=== PATIENT | female | born 1975 | race Hispanic/Latino ===

== ENCOUNTER 2019-01-26 06:15 | Emergency (ER) | payer SELFPAY ==
[2019-01-26] MEDS ORDERED: ONDANSETRON 4 MG/2 ML VIAL ONE (06:52)
[2019-01-26 07:01] LABS: Absolute Lymphocytes (CBC) 2.3 K/uL (0.7-4.9); Basophils % 0.3 % (0-1.3); Hematocrit 36.7 % (36.0-45.0); Lymphocytes % 22.2 % (15.3-44.8); MPV 8.9 fL (7.6-11.3); RBC Red Blood Cell Count 4.11 M/uL (3.86-4.86)
[2019-01-26] MEDS ORDERED: NA CHLORIDE 0.9% 1,000 ML ONE (07:11)
[2019-01-26 07:17] LABS: ALT/SGPT 26 U/L (12-78); AST/SGOT 20 U/L (15-37); Albumin 3.2 g/dL (3.4-5.0); Alkaline Phosphatase 126 U/L (45-117); BUN Blood Urea Nitrogen 13 mg/dL (7-18); Bicarbonate 29 mmol/L (21-32); Bilirubin Direct < 0.1 mg/dL (0-0.2); Bilirubin Total 0.4 mg/dL (0.2-1.0); Glucose Level 109 mg/dL (74-106); Lipase 92 U/L (73-393); Potassium 3.9 mmol/L (3.5-5.1); Protein, Total 7.3 g/dL (6.4-8.2); Sodium Level 141 mmol/L (136-145)
[2019-01-26 09:01] LABS: Urine Blood NEGATIVE (NEG); Urine Glucose NEGATIVE (NEG); Urine Protein NEGATIVE (NEG); Urine Specific Gravity 1.025 (1.005-1.030)
[2019-01-26 09:21] LABS: Urine Bacteria <20 /HPF (<20); Urine Culture Reflex Order NOT NEEDED; Urine RBC <5 /HPF (NONE SEEN)
[2019-01-26 09:22] LABS: Urine Mucus 2+ /HPF (NONE SEEN)
--- NOTE | 2019-01-26 09:33 | ER ---
Nurse's Notes [facility] Name: Esther Zimmer Age: 44 yrs Sex: Female : 1975 Arrival Date: 01/26/2019 Time: 06:17 Bed 6 Private MD: Diagnosis: Cholelithiasis;Colic Presentation: 01/26 06:33 Presenting complaint: Patient states: that she is having right upper quad pain along fc with nausea and vomiting that started at 0100. She has hx of gallstones. Transition of care: patient was not received from another setting of care. Onset of symptoms was January 26, 2019 at 01:00. Risk Assessment: Do you want to hurt yourself or someone else? Patient reports no desire to harm self or others. Initial Sepsis Screen:. Care prior to arrival: None. 06:33 Method Of Arrival: Ambulatory 06:33 Acuity: CARMITA 3 06:38 Initial Sepsis Screen: Does the patient meet any 2 criteria? No. Patient's initial fc sepsis screen is negative. Does the patient have a suspected source of infection? No. Patient's initial sepsis screen is negative. 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 - Social history:: Smoking status: Patient/guardian denies using tobacco, Patient/guardian denies using alcohol, street drugs. - Ebola Screening: : Patient negative for fever greater than or equal to 101.5 degrees Fahrenheit, and additional compatible Ebola Virus Disease symptoms Patient denies exposure to infectious person Patient denies travel to an Ebola-affected area in the 21 days before illness onset. Screenin:36 Abuse screen: Denies threats or abuse. Nutritional screening: No deficits noted. fc Tuberculosis screening: No symptoms or risk factors identified. Fall Risk None identified. Assessment: 06:36 General: Appears in no apparent distress. obese, well groomed, Behavior is calm, ak1 cooperative. Pain: Complains of pain in epigastric area. Neuro: No deficits noted. Cardiovascular: No deficits noted. Respiratory: Airway is patent Respiratory effort is unlabored. GI: Abdomen is round non-distended, obese, Bowel sounds present X 4 quads. Abd is soft and non tender Reports nausea, vomiting. : No signs and/or symptoms were reported regarding the genitourinary system. EENT: No signs and/or symptoms were reported regarding the EENT system. Derm: No signs and/or symptoms reported regarding the dermatologic system. Musculoskeletal: No signs and/or symptoms reported regarding the musculoskeletal system. 07:00 Reassessment: RECD REPORT FROM MATTHEW PICKENS. 44YO HF P/W ABDOMINAL PAIN, PREVIOUSLY DX WITH bp GALLSTONES. 07:16 Reassessment: Patient and/or family updated on plan of care and expected duration. Pain ae4 level reassessed. Reassessment: Patient c/o pain but states she is feeling better and reports nausea has decreased. General: Behavior is calm, cooperative. Pain: Complains of pain in epigastric area and right upper quadrant. 07:30 Reassessment: Encouraged patient to provide urine sample, patient states she urinated ae4 before arriving to ER and cannot provide a sample at this time. Will continue to monitor. 08:28 Reassessment: Patient ambulated to bathroom to provide urine sample at this time. ae4 Patient has steady gait. Will continue to monitor. 09:40 Reassessment: Patient appears in no apparent distress at this time. Patient and/or ae4 family updated on plan of care and expected duration. Pain level reassessed. Patient states feeling better. Vital Signs: 06:35 BP 137 / 91; Pulse 77; Resp 18; Temp 97.1(O); Pulse Ox 98% on R/A; Weight 158.76 kg fc (R); Height 5 ft. 6 in. (167.64 cm) (R); Pain 10/10; 07:00 BP 136 / 104; Pulse 58; Resp 17; Pulse Ox 100% ; bp 08:41 BP 119 / 82; Pulse 70; Resp 18; Pulse Ox 100% on R/A; ae4 09:40 BP 129 / 85; Pulse 70; Resp 18; Pulse Ox 99% on R/A; ae4 06:35 Body Mass Index 56.49 (158.76 kg, 167.64 cm) ED Course: 06:17 Patient arrived in ED. ds1 06:20 [facility] Archer [facility]C [facility]. snw 06:20 Richard Alcaraz MD is Attending Physician. snw 06:34 Triage completed. fc 06:35 Matthew Bergman, RN is Primary Nurse. ak1 06:35 Arm band placed on Patient placed in an exam room, on a stretcher. fc 06:36 Patient has correct armband on for positive identification. Placed in gown. Bed in low fc position. Call light in reach. Pulse ox on. NIBP on. 06:36 No provider procedures requiring assistance completed. fc 06:45 Inserted saline lock: 20 gauge in right antecubital area, using aseptic technique. cc3 Blood collected. 08:15 Ultrasound completed. Patient tolerated well. sg3 08:28 Primary Nurse role handed off by Matthew Bergman, RN ae4 08:28 Omer West RN is Primary Nurse. ae4 08:45 Urine collected: clean catch specimen, clear, matthew colored. jb1 09:31 Michael Mccarty MD is Referral Physician. snw 09:42 IV discontinued, intact, bleeding controlled, Pressure dressing applied, Mild swelling ae4 and light bruising to insertion site. Administered Medications: 06:50 Drug: Zofran 4 mg Route: IVP; Site: right antecubital; cc3 07:16 Follow up: Response: Nausea is decreased ae4 07:16 Drug: NS 0.9% 1000 ml Route: IV; Rate: 125 ml/hr; Site: right wrist; ae4 09:42 Follow up: Response: No adverse reaction; IV Intake: 300ml ae4 09:43 Follow up: IV Status: Order to discontinue infusion; Patient discharged. ae4 Intake: 09:42 IV: 300ml; Total: 300ml. ae4 Outcome: 09:32 Discharge ordered by . snw 09:41 Discharged to home ambulatory, with family. ae4 09:41 Condition: stable 09:41 Discharge instructions given to patient, family, Instructed on discharge instructions, follow up and referral plans. medication usage, Demonstrated understanding of instructions, Prescriptions given X 2. 09:43 Patient left the ED. ae4 Signatures: Dispatcher [employer] EDMS Homero Vargas jb1 Jennifer Archer FNP-C FNP-Csnw Carla Hamilton, RN RN fc StricklandSarah vickers ds1 Matthew Bergman RN RN ak1 Richi Sarmiento RN RN bp Aparna Marie sg3 Genny Kahn cc3 Omer West RN RN ae4 Corrections: (The following items were deleted from the chart) 06:36 06:35 BP 137 / 91; Pulse 77bpm; Resp 18bpm; Pulse Ox 98% RA; Temp 97.1F Oral; ak1 fc 08:28 08:28 In radiology for Abdomen Limited+US.RAD.BRZ. EDMS sg3
--- NOTE | 2019-01-26 09:33 | EDPHYS ---
Physician Documentation [facility] Name: Esther Zimmer Age: 44 yrs Sex: Female : 1975 Arrival Date: 01/26/2019 Time: 06:17 Bed 6 Private MD: ED Physician Richard Alcaraz HPI: 01/26 07:29 This 44 yrs old Female presents to ER via Ambulatory with complaints of snw Abdominal Pain. 07:29 The patient presents with abdominal pain in the right upper quadrant. Onset: The snw symptoms/episode began/occurred gradually, at an unknown time, and became worse this morning, and became persistent yesterday. 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 - Social history:: Smoking status: Patient/guardian denies using tobacco, Patient/guardian denies using alcohol, street drugs. - Ebola Screening: : Patient negative for fever greater than or equal to 101.5 degrees Fahrenheit, and additional compatible Ebola Virus Disease symptoms Patient denies exposure to infectious person Patient denies travel to an Ebola-affected area in the 21 days before illness onset. ROS: 07:28 Constitutional: Negative for fever, chills, and weight loss, Eyes: Negative for injury, snw pain, redness, and discharge, ENT: Negative for injury, pain, and discharge, Neck: Negative for injury, pain, and swelling, Cardiovascular: Negative for chest pain, palpitations, and edema, Respiratory: Negative for shortness of breath, cough, wheezing, and pleuritic chest pain, Back: Negative for injury and pain, : Negative for injury, bleeding, discharge, and swelling, MS/Extremity: Negative for injury and deformity, Skin: Negative for injury, rash, and discoloration, Neuro: Negative for headache, weakness, numbness, tingling, and seizure. 07:28 Abdomen/GI: Positive for abdominal pain, nausea, vomiting. Exam: 07:21 Constitutional: This is a well developed, obese patient who is awake, alert, and in no snw acute distress. Head/Face: Normocephalic, atraumatic. Eyes: Pupils equal round and reactive to light, extra-ocular motions intact. Lids and lashes normal. Conjunctiva and sclera are non-icteric and not injected. Cornea within normal limits. Periorbital areas with no swelling, redness, or edema. ENT: Nares patent. No nasal discharge, no septal abnormalities noted. Tympanic membranes are normal and external auditory canals are clear. Oropharynx with no redness, swelling, or masses, exudates, or evidence of obstruction, uvula midline. Mucous membranes moist. Neck: Trachea midline, no thyromegaly or masses palpated, and no cervical lymphadenopathy. Supple, full range of motion without nuchal rigidity, or vertebral point tenderness. No Meningismus. Chest/axilla: Normal chest wall appearance and motion. Nontender with no deformity. No lesions are appreciated. Cardiovascular: Regular rate and rhythm with a normal S1 and S2. No gallops, murmurs, or rubs. Normal PMI, no JVD. No pulse deficits. Respiratory: Lungs have equal breath sounds bilaterally, clear to auscultation and percussion. No rales, rhonchi or wheezes noted. No increased work of breathing, no retractions or nasal flaring. Back: No spinal tenderness. No costovertebral tenderness. Full range of motion. Skin: Warm, dry with normal turgor. Pale color with no rashes, no lesions, and no evidence of cellulitis. MS/ Extremity: Pulses equal, no cyanosis. Neurovascular intact. Full, normal range of motion. Neuro: Awake and alert, GCS 15, oriented to person, place, time, and situation. Cranial nerves II-XII grossly intact. Motor strength 5/5 in all extremities. Sensory grossly intact. Cerebellar exam normal. Normal gait. Psych: Awake, alert, with orientation to person, place and time. Behavior, mood, and affect are within normal limits. 07:21 Abdomen/GI: Inspection: obese Bowel sounds: normal, Palpation: moderate abdominal tenderness, in the right upper quadrant. Vital Signs: 06:35 BP 137 / 91; Pulse 77; Resp 18; Temp 97.1(O); Pulse Ox 98% on R/A; Weight 158.76 kg fc (R); Height 5 ft. 6 in. (167.64 cm) (R); Pain 10/10; 07:00 BP 136 / 104; Pulse 58; Resp 17; Pulse Ox 100% ; bp 08:41 BP 119 / 82; Pulse 70; Resp 18; Pulse Ox 100% on R/A; ae4 09:40 BP 129 / 85; Pulse 70; Resp 18; Pulse Ox 99% on R/A; ae4 06:35 Body Mass Index 56.49 (158.76 kg, 167.64 cm) fc MDM: 06:42 Patient medically screened. snw 09:33 Data reviewed: vital signs, nurses notes. Data interpreted: Pulse oximetry: on room air snw is 100 %. Interpretation: normal. Counseling: I had a detailed discussion with the patient and/or guardian regarding: the historical points, exam findings, and any diagnostic results supporting the discharge/admit diagnosis, the presence of at least one elevated blood pressure reading (>120/80) during this emergency department visit, lab results, radiology results, the need for outpatient follow up, to return to the emergency department if symptoms worsen or persist or if there are any questions or concerns that arise at home. Special discussion: Based on the patient's Hx, exam, and Dx evaluation, there is no indication for emergent surgery or inpatient Tx. It is understood by the patient/guardian that if the Sx's persist or worsen they need to return immediately for re-evaluation. Based on the history and exam findings, there is no indication for further emergent testing or inpatient evaluation. I discussed with the patient/guardian the need to see the general surgeon for further evaluation of the symptoms. I discussed with the patient/guardian the need to see the primary care provider for further evaluation of the symptoms. 01/26 06:41 Order name: Basic Metabolic Panel; Complete Time: 07: snw 01/26 06:41 Order name: CBC with Diff; Complete Time: 07: snw 01/26 06:41 Order name: Creatinine for Radiology; Complete Time: 07: snw 01/26 06:41 Order name: Hepatic Function; Complete Time: 07:21 snw 01/26 06:41 Order name: Lipase; Complete Time: 07: snw 01/26 06:41 Order name: Urine Microscopic Only; Complete Time: 09: snw 01/26 06:41 Order name: IV Saline Lock; Complete Time: 06:47 snw 01/26 06:41 Order name: Labs collected and sent; Complete Time: 06:47 snw 01/26 06:41 Order name: US Abdomen Limited snw 01/26 06:41 Order name: Urine Test (obtain specimen); Complete Time: 08:44 snw 01/26 08:47 Order name: Urine Dipstick--Ancillary (enter results); Complete Time: 09:08 eb 01/26 08:47 Order name: Urine --Ancillary (enter results); Complete Time: 09:08 eb 01/26 06:41 Order name: Urine Dipstick-Ancillary (obtain specimen); Complete Time: 08:44 snw Administered Medications: 06:50 Drug: Zofran 4 mg Route: IVP; Site: right antecubital; cc3 07:16 Follow up: Response: Nausea is decreased ae4 07:16 Drug: NS 0.9% 1000 ml Route: IV; Rate: 125 ml/hr; Site: right wrist; ae4 09:42 Follow up: Response: No adverse reaction; IV Intake: 300ml ae4 09:43 Follow up: IV Status: Order to discontinue infusion; Patient discharged. ae4 Disposition: 01/26/19 09:32 Discharged to Home. Impression: Cholelithiasis, Colic. - Condition is Stable. - Discharge Instructions: Biliary Colic, Adult, Fat and Cholesterol Restricted Diet, Cholelithiasis, Rehydration, Adult. - Prescriptions for Bentyl 20 mg Oral Tablet - take 1 tablet by ORAL route every 6 hours As needed; 20 tablet. promethazine 25 mg Oral Tablet - take 1 tablet by ORAL route every 6 hours As needed; 20 tablet. - Work release form, Medication Reconciliation Form, Thank You Letter, Antibiotic Education, Prescription Opioid Use form. - Follow up: Private Physician; When: 1 - 2 days; Reason: Recheck today's complaints, Continuance of care, Re-evaluation by your physician. Follow up: Michael Mccarty MD; When: 1 week; Reason: Recheck today's complaints, Continuance of care. Addendum: 01/28/2019 09:17 Co-signature as Attending Physician, Richard Alcaraz MD I agree with the assessment and c huber plan of care. Signatures: Dispatcher [employer] EDMS Rcihard Alcaraz MD MD cha Therrien, Shelly, CASINO CASHIER MANAGER-C CASINO CASHIER MANAGER-Csnw Carla Hamilton RN RN Genny Kahn cc3 Omer West RN RN ae4 Corrections: (The following items were deleted from the chart) 01/26 07:29 07:21 Constitutional: This is a well developed, well nourished patient who is awake, snw alert, and in no acute distress. Head/Face: Normocephalic, atraumatic. Eyes: Pupils equal round and reactive to light, extra-ocular motions intact. Lids and lashes normal. Conjunctiva and sclera are non-icteric and not injected. Cornea within normal limits. Periorbital areas with no swelling, redness, or edema. ENT: Nares patent. No nasal discharge, no septal abnormalities noted. Tympanic membranes are normal and external auditory canals are clear. Oropharynx with no redness, swelling, or masses, exudates, or evidence of obstruction, uvula midline. Mucous membranes moist. Neck: Trachea midline, no thyromegaly or masses palpated, and no cervical lymphadenopathy. Supple, full range of motion without nuchal rigidity, or vertebral point tenderness. No Meningismus. Chest/axilla: Normal chest wall appearance and motion. Nontender with no deformity. No lesions are appreciated. Cardiovascular: Regular rate and rhythm with a normal S1 and S2. No gallops, murmurs, or rubs. Normal PMI, no JVD. No pulse deficits. Respiratory: Lungs have equal breath sounds bilaterally, clear to auscultation and percussion. No rales, rhonchi or wheezes noted. No increased work of breathing, no retractions or nasal flaring. Back: No spinal tenderness. No costovertebral tenderness. Full range of motion. Skin: Warm, dry with normal turgor. Normal color with no rashes, no lesions, and no evidence of cellulitis. MS/ Extremity: Pulses equal, no cyanosis. Neurovascular intact. Full, normal range of motion. Neuro: Awake and alert, GCS 15, oriented to person, place, time, and situation. Cranial nerves II-XII grossly intact. Motor strength 5/5 in all extremities. Sensory grossly intact. Cerebellar exam normal. Normal gait. Psych: Awake, alert, with orientation to person, place and time. Behavior, mood, and affect are within normal limits. snw 09:43 09:32 01/26/2019 09:32 Discharged to Home. Impression: Cholelithiasis; Colic. Condition ae4 is Stable. Forms are Medication Reconciliation Form, Thank You Letter, Antibiotic Education, Prescription Opioid Use. Follow up: Private Physician; When: 1 - 2 days; Reason: Recheck today's complaints, Continuance of care, Re-evaluation by your physician. Follow up: Michael Mccarty; When: 1 week; Reason: Recheck today's complaints, Continuance of care. snw
[2019-01-26 10:11] VITALS: TEMP 97.1
[2019-01-26 10:15] VITALS: BP 129/85; O2SAT 99
--- NOTE | 2019-01-26 10:54 | RAD REPORT ---
EXAM DESCRIPTION: US - Abdomen Exam Limited - 01/26/2019 8:28 am CLINICAL HISTORY: ABD PAIN COMPARISON: Abdomen Exam Limited dated 12/30/2018 FINDINGS: The gallbladder demonstrates multiple shadowing gallstones. No pericholecystic fluid or ga llbladder wall thickening. The common bile duct is normal measuring 4 mm. The liver demonstrates no findings of intrahepatic biliary dilatation. IMPRESSION: Cholelithiasis.
== END 2019-01-26 09:43 | disposition home or self-care (01) ==
LOC: ER 06:15
DX: K80.20 Calculus of gallbladder without cholecystitis without obstruction (principal); R10.84 Generalized abdominal pain; E03.9 Hypothyroidism, unspecified
CPT/HCPCS: 36415; 76705; 80048; 80076; 81003; 81015; 81025; 83690; 85025; 96361; 96374; 99284; J2405; J7030

== ENCOUNTER 2019-02-13 09:36 | Day surgery (SDC) | payer BC ==
--- NOTE | 2019-02-11 15:05 | RAD REPORT ---
EXAM DESCRIPTION: RAD - Chest Pa And Lat (2 Views) - 02/11/2019 2:26 pm CLINICAL HISTORY: preop, pending cholecystectomy COMPARISON: None. TECHNIQUE: PA and lateral views of the chest were obtained. FINDINGS: The lungs are clear. Heart size is normal and central vasculature is within normal limit s. No pleural effusion or pneumothorax seen. No acute bony finding noted. No aortic abnormality. IMPRESSION: No acute cardiopulmonary process.
--- NOTE | 2019-02-11 17:16 | EKG ---
Test Date: 2019-02-11 Test Time: 14:01:06 District Plant Superintendent: CONNIE MEASUREMENT RESULTS: Intervals: Rate: 63 UT: 164 QRSD: 90 QT: 404 QTc: 413 [place]: P: 260 UT: 164 QRS: 56 T: 52 INTERPRETIVE STATEMENTS: Unusual P axis, possible ectopic atrial rhythm Cannot rule out Anterior infarct, age undetermined Abnormal ECG No previous ECG available for comparison Electronically Signed On 02-11-19 17:15:29 CDT by Matthew Daniels
[2019-02-13] MEDS ORDERED: Ringers Lactate 1,000 ML IV ONE ×2 (09:38→11:39)
[2019-02-13] MEDS ORDERED: LIDOCAINE 2% MPF 5 ML VIAL ONE (09:43)
[2019-02-13] MEDS ORDERED: MIDAZOLAM HCL 2 MG/2 ML INJ ONE (09:43)
[2019-02-13] MEDS ORDERED: FENTANYL CITR 250 MCG/5 ML ONE (09:43)
[2019-02-13] MEDS ORDERED: dexAMETHasone 10 MG/ML VIAL ONE (09:43)
[2019-02-13] MEDS ORDERED: PROPOFOL 200 MG/20 ML VIAL IV ONE (09:43)
[2019-02-13] MEDS ORDERED: ROCURONIUM 50 MG/5 ML VIAL IV ONE (09:43)
[2019-02-13] MEDS ORDERED: GLYCOPYRROLATE 0.2 MG/ML SYR ONE ×2 (09:43→11:43)
[2019-02-13] MEDS ORDERED: CEFOXITIN/SWI 1gm 1 GM/10 ML SYR ONE (10:15)
[2019-02-13 10:25] LABS: ALT/SGPT 25 U/L (12-78); AST/SGOT 17 U/L (15-37); Albumin 3.2 g/dL (3.4-5.0); Alkaline Phosphatase 123 U/L (45-117); Amylase Level 50 U/L (25-115); Bilirubin Direct < 0.1 mg/dL (0-0.2); Bilirubin Total 0.4 mg/dL (0.2-1.0); Lipase 93 U/L (73-393)
[2019-02-13] MEDS ORDERED: KETOROLAC 30 MG/ML INJ ONE (11:43)
[2019-02-13] MEDS ORDERED: NEOSTIGMINE 1 MG/ML -10 ML VIAL ONE (11:46)
--- NOTE | 2019-02-13 12:09 | P.BOP ---
Preoperative diagnosis: symptomatic cholelithiasis. morbid obesity Postoperative diagnosis: same Primary procedure: Laparoscopic cholecystectomy Bellhop: SYMONE MULLINS (fatback trimmer) Estimated blood loss: <20cc Specimen: gb Findings: as above Anesthesia: General Complications: None Transferred to: Recovery Room Condition: Good
[2019-02-13] MEDS: MORPHINE 4 MG/ML SYR ONE ×2 (12:41→12:46)
[2019-02-13] MEDS ORDERED: CODEINE 30MG/APAP 300MG TAB ONE (14:03)
[2019-02-13 14:23] VITALS: BP 111/60; TEMP 98.5; O2SAT 96
--- NOTE | 2019-02-13 21:56 | OP ---
Date of Procedure: 02/13/2019 Surgeon: Shaun Estrada MD Web Worker: DEANN Resendiz. Preoperative Diagnoses: Symptomatic cholelithiasis, acute cholecystitis, morbid obesity. Postoperative Diagnoses: Symptomatic cholelithiasis, acute cholecystitis, morbid obesity plus intraa bdominal adhesions. Procedures: Laparoscopic cholecystectomy. Estimated Blood Loss: Less than 20 mL. Specimens: Gallbladder. Findings: Patient had as above in the gallbladder also has multiple adhesions from previous surgerie s. Adhesion was removed the 1 near the gallbladder with endo-zulay. Indications: This is the case of a 44-year-old patient with above diagnosis. Fully explained the be nefits, alternatives, and risks of laparoscopic, possible open cholecystectomy, which include but are not limited to infection, bleeding, damage to adjacent structures, anesthesia complication, choledoc holithiasis, bile leak, pancreatitis, VA, and even . She also understands this may not relieve any symptoms. She might need more than one surgical intervention. She was also advised after surger y to continue ambulation, at least every 2 hours. She signed a consent. Description Of Procedure: Patient was brought to the operating room, placed in supine position. Ane sthesia was done without complication. Abdominal area was prepped and draped in a sterile fashion. Marcaine 0.5% was injected for local anesthetic. The first incision was done in the supraumbilical r egion. Patient has multiple incisions around the belly button and in the lower ventral region also p atient has across incision like findings of incision. So, we went to the periumbilical region. The pannus was very large and thick so had to go all the way down to fascia until we identified and opene d the fascia under direct visualization. I identified the peritoneal and opened under direct visuali zation. Vicryl #1 was placed inside the fascia. Dorota trocar was carefully introduced, extended 1 then insufflation was obtained. At that moment, I proceeded to place 3 more trocars, 5 mm each one o f them in the right upper quadrant. We put a grasper in the fundus of the gallbladder, some adhesion s of the omentum to the gallbladder and to the liver were carefully removed with Endo Zulay with Bov ie cauterizer. Intestines were protected at all times. Grasper was placed in the fundus of the gall bladder, another grasper in the infundibulum, retracted the gallbladder in the inferolateral fashion exposing the triangle of Calot, obtaining critical view of safety. Cystic duct and cystic artery wer e clearly isolated free circumferentially and a connection between those and the gallbladder were aureliano aixa identified. A small little branch of the cystic artery was also ligated. By using at least 2 c lips proximal, 1 clip distal, ligation in middle, same was done with the artery and the cystic duct. Hepatic arteries and common bile duct were protected at all times. Gallbladder was removed from papi er using Bovie cauterizer and removed from abdominal cavity using EndoCatch through umbilical incisio n. The area was inspected once again. No bile leak. No bleeding. The area of adhesions, no bleedi ng. At that moment I proceeded to remove the trocars under direct vision. Deflated the pneumoperito neum. Closed the fascia with #1 Vicryl. Irrigated with subcutaneous incision, closed with 3-0 chrom ic and skin with uday. Sponge count and instrument counts were correct. Patient tolerated the pr ocedure well. Patient was sent to recovery in stable condition. Disposition: Home. Activity: As tolerated. No heavy lifting. Followup: Follow up in my office in 1 week. Call for appointment at [phone]. Keep area dry for 48 hours, then may shower. Keep dressing intact. Patient was once again encouraged ambulation every 2 hours. ADITYA/KAYLA Voice ID: [id number] Report ID: [id number]
== END 2019-02-13 14:37 | disposition home or self-care (01) ==
LOC: OR 09:36
PROVIDERS: ATTEND Surgery
PROC: 0FT44ZZ Resection of Gallbladder, Percutaneous Endoscopic Approach (ICD-10-PCS; principal; 2019-02-13 11:30)
DX: K80.12 Calculus of gallbladder with acute and chronic cholecystitis without obstruction (principal); K66.0 Peritoneal adhesions (postprocedural) (postinfection); E66.01 Morbid (severe) obesity due to excess calories; Z83.3 Family history of diabetes mellitus; Z80.9 Family history of malignant neoplasm, unspecified
CPT/HCPCS: 93005; 36415; 82150; 80076; 88304; 83690; 71046; 47562; J2704; J2710; J2250; J3010; J1100; J7120 ×2

== ENCOUNTER 2019-05-20 21:33 | Emergency (ER) | payer BC ==
--- OUTSIDE RECORDS SUMMARY | 2019-05-20 21:35 | XMS REPORT ---
:1975 Author [facility] Address [address] [place] [address] Care Team Providers Name Role Phone Unavailable Unavailable Unavailable Problems This patient has no known problems. Allergies, Adverse Reactions, Alerts This patient has no known allergies or adverse reactions. Medications This patient has no known medications.
--- NOTE | 2019-05-20 22:01 | ER ---
Nurse's Notes [facility] Name: Esther Zimmer Age: 44 yrs Sex: Female : 1975 Arrival Date: 05/20/2019 Time: 21:35 Bed 6 Private MD: Diagnosis: Strain of other extensor muscle, fascia and tendon at forearm level Presentation: 05/20 21:49 Presenting complaint: Patient states: pt tripped and fell over her dog last night and bb3 c/o pain 10/10 on LFA. pt states she braced her fall with left arm and "felt something tear". pt unable to grab objects or squeeze fingers closed. Transition of care: patient was not received from another setting of care. Onset of symptoms was May 20, 2019 at 20:30. Risk Assessment: Do you want to hurt yourself or someone else? Patient reports no desire to harm self or others. Initial Sepsis Screen: Does the patient meet any 2 criteria? No. Patient's initial sepsis screen is negative. Does the patient have a suspected source of infection? No. Patient's initial sepsis screen is negative. Care prior to arrival: Medication(s) given: Aleve. 21:49 Method Of Arrival: Ambulatory bb3 21:49 Acuity: CARMITA 4 bb3 Triage Assessment: 21:58 General: Appears in no apparent distress. uncomfortable, Behavior is calm, cooperative, bb3 appropriate for age. Pain: Complains of pain in left arm Pain at worst was 10 out of 10 on a pain scale. Quality of pain is described as burning, Pain began 1 day ago. Alleviated by cold application. 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 - Social history:: Patient/guardian denies using Smoking status: Patient/guardian denies using tobacco. - Ebola Screening: : No symptoms or risks identified at this time. Screenin:02 Abuse screen: Denies threats or abuse. Nutritional screening: No deficits noted. bb3 Tuberculosis screening: No symptoms or risk factors identified. Fall Risk Fall in past 12 months (25 points). Assessment: 22:00 General: Appears in no apparent distress. Behavior is calm, cooperative, appropriate ea for age. Pain: Complains of pain in dorsal aspect of left forearm. Neuro: Level of Consciousness is awake, alert, obeys commands, Oriented to person, place, time, situation. Cardiovascular: Patient's skin is warm and dry. Respiratory: Airway is patent Respiratory effort is even, unlabored, Respiratory pattern is regular, symmetrical. Derm: Skin is pink, warm \\T\\ dry. 22:08 Reassessment: Patient and/or family updated on plan of care and expected duration. Pain ea level reassessed. Patient is alert, oriented x 3, equal unlabored respirations, skin warm/dry/pink. Discharge instruction given to patient, verbalized the understanding of instruction . Pt left ED ambulatory, tolerating well. Vital Signs: 22:00 Pulse 86; bb3 22:00 Pulse 97; Resp 18; Temp 98.1; Pulse Ox 99% ; Weight 154.22 kg; Height 5 ft. 6 in. bb3 (167.64 cm); Pain 10/10; 22:00 BP 128 / 87; bb3 22:00 Body Mass Index 54.88 (154.22 kg, 167.64 cm) bb3 ED Course: 21:35 Patient arrived in ED. cl3 21:37 Remigio Weldon PA is PHCP. jr8 21:37 Dorothea Hernández MD is Attending Physician. jr8 21:55 Triage completed. bb3 22:00 Jay Gilman MD is Referral Physician. jr8 22:02 Patient has correct armband on for positive identification. Bed in low position. bb3 22:03 Arm band placed on right wrist. Patient placed in an exam room, on a stretcher, on bb3 pulse oximetry. 22:07 Teresa Ortiz, NELIA is Primary Nurse. ea 22:09 No provider procedures requiring assistance completed. Patient did not have IV access ea during this emergency room visit. Administered Medications: No medications were administered Outcome: 22:00 Discharge ordered by . jr8 22:09 Discharged to home ambulatory. ea 22:09 Condition: stable 22:09 Discharge instructions given to patient, Instructed on discharge instructions, follow up and referral plans. medication usage, Demonstrated understanding of instructions, follow-up care, medications. 22:10 Patient left the ED. ea Signatures: Remigio Weldon PA PA jr8 Teresa Ortiz RN RN Cleo Petty cl3 Brynn Andrews bb3
--- NOTE | 2019-05-20 22:01 | EDPHYS ---
Physician Documentation [facility] Name: Esther Zimmer Age: 44 yrs Sex: Female : 1975 Arrival Date: 05/20/2019 Time: 21:35 Bed 6 Private MD: ED Physician Dorothea Hernández HPI: 05/20 21:55 This 44 yrs old Female presents to ER via Ambulatory with complaints of Arm jr8 Pain. 21:55 The patient or guardian complains of decreased range of motion, pain, tenderness. The jr8 complaints affect the dorsal aspect of left forearm. Context: The problem was sustained at home, resulted from a fall. Onset: The symptoms/episode began/occurred acutely, yesterday. Treatment prior to arrival includes: applying pressure to the affected area. Modifying factors: The symptoms are alleviated by nothing. the symptoms are aggravated by movement, lifting weight. Associated signs and symptoms: The patient has no apparent associated signs or symptoms. Severity of symptoms: At their worst the symptoms were mild, in the emergency department the symptoms are unchanged. The patient has not experienced similar symptoms in the past. The patient has not recently seen a physician. Patient stated that she braised her self from falling onto a wall with left arm. Stated that she felt pull in dorsal aspect of forearm. Has had pain since then and decreased ROM. Denies actual fall injury to arm . 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 - Social history:: Patient/guardian denies using Smoking status: Patient/guardian denies using tobacco. - Ebola Screening: : No symptoms or risks identified at this time. ROS: 21:55 Eyes: Negative for injury, pain, redness, and discharge, ENT: Negative for injury, jr8 pain, and discharge, Neck: Negative for injury, pain, and swelling, Cardiovascular: Negative for chest pain, palpitations, and edema, Respiratory: Negative for shortness of breath, cough, wheezing, and pleuritic chest pain, Abdomen/GI: Negative for abdominal pain, nausea, vomiting, diarrhea, and constipation, Back: Negative for injury and pain, Skin: Negative for injury, rash, and discoloration, Neuro: Negative for headache, weakness, numbness, tingling, and seizure. 21:55 MS/extremity: Positive for pain, tenderness, of the dorsal aspect of left forearm. Exam: 21:58 Eyes: Pupils equal round and reactive to light, extra-ocular motions intact. Lids and jr8 lashes normal. Conjunctiva and sclera are non-icteric and not injected. Cornea within normal limits. Periorbital areas with no swelling, redness, or edema. ENT: Nares patent. No nasal discharge, no septal abnormalities noted. Tympanic membranes are normal and external auditory canals are clear. Oropharynx with no redness, swelling, or masses, exudates, or evidence of obstruction, uvula midline. Mucous membranes moist. Neck: Trachea midline, no thyromegaly or masses palpated, and no cervical lymphadenopathy. Supple, full range of motion without nuchal rigidity, or vertebral point tenderness. No Meningismus. Cardiovascular: Regular rate and rhythm with a normal S1 and S2. No gallops, murmurs, or rubs. Normal PMI, no JVD. No pulse deficits. Respiratory: Lungs have equal breath sounds bilaterally, clear to auscultation and percussion. No rales, rhonchi or wheezes noted. No increased work of breathing, no retractions or nasal flaring. Abdomen/GI: Soft, non-tender, with normal bowel sounds. No distension or tympany. No guarding or rebound. No evidence of tenderness throughout. Back: No spinal tenderness. No costovertebral tenderness. Full range of motion. Skin: Warm, dry with normal turgor. Normal color with no rashes, no lesions, and no evidence of cellulitis. Neuro: Awake and alert, GCS 15, oriented to person, place, time, and situation. Cranial nerves II-XII grossly intact. Motor strength 5/5 in all extremities. Sensory grossly intact. Cerebellar exam normal. Normal gait. 21:58 Musculoskeletal/extremity: Extremities: grossly normal except: noted in the dorsal aspect of left forearm: Pain and tenderness to dorsal mid forearm without external signs of trauma , ROM: intact in all extremities, full active range of motion, full passive range of motion, limited active range of motion due to pain, limited passive range of motion due to pain, Circulation is intact in all extremities. Sensation intact. Vital Signs: 22:00 Pulse 86; bb3 22:00 Pulse 97; Resp 18; Temp 98.1; Pulse Ox 99% ; Weight 154.22 kg; Height 5 ft. 6 in. bb3 (167.64 cm); Pain 10/10; 22:00 BP 128 / 87; bb3 22:00 Body Mass Index 54.88 (154.22 kg, 167.64 cm) bb3 MDM: 21:55 Patient medically screened. jr8 21:58 Data reviewed: vital signs, nurses notes, and as a result, I will discharge patient. jr8 Data interpreted: Pulse oximetry: on room air is 100 %. Interpretation: normal. Counseling: I had a detailed discussion with the patient and/or guardian regarding: the historical points, exam findings, and any diagnostic results supporting the discharge/admit diagnosis, the need for outpatient follow up, a orthopedic surgeon, to return to the emergency department if symptoms worsen or persist or if there are any questions or concerns that arise at home. ED course: I utilized small antwan wrap to make a pressure wrap to upper forearm which significantly helped the pain and further increased her ROM. Told her to utilize this as much as possible. To not make it to tight. Will put on NSAID based product. If need be to f/u with orthopedics if not resolving . Administered Medications: No medications were administered Disposition: 05/21 04:33 Co-signature as Attending Physician, Dorothea Hernández MD. ma2 Disposition: 05/20/19 22:00 Discharged to Home. Impression: Strain of other extensor muscle, fascia and tendon at forearm level. - Condition is Stable. - Discharge Instructions: Muscle Strain. - Prescriptions for meloxicam 15 mg Oral tablet - take 1 tablet by ORAL route once daily As needed; 20 tablet. - Medication Reconciliation Form, Thank You Letter, Antibiotic Education, Prescription Opioid Use form. - Follow up: Jay Gilman MD; When: 7 - 10 days; Reason: Recheck today's complaints, Continuance of care, Re-evaluation by your physician. - Problem is new. - Symptoms have improved. Signatures: Remigio Weldon PA PA jr8 Teresa Ortiz, RN RN Dorothea Bella MD MD ma2 Brynn Andrews bb3 Corrections: (The following items were deleted from the chart) 05/20 21:57 21:55 Patient stated that she braised her self from falling onto a wall with left arm. jr8 Stated that she felt pull in dorsal aspect of forearm. Has had pain since then and decreased ROM . jr8 22:10 22:00 05/20/2019 22:00 Discharged to Home. Impression: Strain of other extensor muscle, ea fascia and tendon at forearm level. Condition is Stable. Forms are Medication Reconciliation Form, Thank You Letter, Antibiotic Education, Prescription Opioid Use. Follow up: Jay Gilman; When: 7 - 10 days; Reason: Recheck today's complaints, Continuance of care, Re-evaluation by your physician. Problem is new. Symptoms have improved. jr8
[2019-05-20 23:29] VITALS: BP 128/87; TEMP 98.1; O2SAT 99
== END 2019-05-20 22:10 | disposition home or self-care (01) ==
LOC: ER 21:33
DX: S56.912A Strain of unspecified muscles, fascia and tendons at forearm level, left arm, initial encounter (principal); W01.0XXA Fall on same level from slipping, tripping and stumbling without subsequent striking against object, initial encounter; Y93.89 Activity, other specified; Y92.9 Unspecified place or not applicable; E03.9 Hypothyroidism, unspecified
CPT/HCPCS: 99283

== ENCOUNTER 2019-05-24 12:25 | Emergency (ER) | payer BC ==
--- OUTSIDE RECORDS SUMMARY | 2019-05-24 12:28 | XMS REPORT ---
:1975 Author Organization [facility] Address [address] [place] [address] Care Team Providers Name Role Phone Unavailable Unavailable Unavailable Problems This patient has no known problems. Allergies, Adverse Reactions, Alerts This patient has no known allergies or adverse reactions. Medications This patient has no known medications.
--- NOTE | 2019-05-24 16:10 | ER ---
Nurse's Notes [facility] Name: Esther Zimmer Age: 44 yrs Sex: Female : 1975 Arrival Date: 05/24/2019 Time: 12:27 Bed 12 Private MD: Diagnosis: Pain in forearm;Pain in left shoulder Presentation: 05/24 12:39 Presenting complaint: Patient states: Left arm pain for the past 2 days, states that aj1 she was seen here 2 days ago, she was told she probably tore something and given antiinflammatory pain medication, but it isn't helping her and now her hand is swollen. States that she called her doctor but they can't see her for a week and a half. Transition of care: patient was not received from another setting of care. Onset of symptoms was 2019. Risk Assessment: Do you want to hurt yourself or someone else? Patient reports no desire to harm self or others. Initial Sepsis Screen: Does the patient meet any 2 criteria? No. Patient's initial sepsis screen is negative. Does the patient have a suspected source of infection? No. Patient's initial sepsis screen is negative. Care prior to arrival: None. 12:39 Method Of Arrival: Ambulatory aj1 12:39 Acuity: CARMITA 4 aj1 Triage Assessment: 12:41 General: Appears in no apparent distress. comfortable, Behavior is calm, cooperative, aj1 appropriate for age. Pain: Complains of pain in left arm Pain currently is 10 out of 10 on a pain scale. Neuro: Level of Consciousness is awake, alert, obeys commands. Cardiovascular: Patient's skin is warm and dry. Respiratory: Airway is patent Respiratory effort is even, unlabored, Respiratory pattern is regular, symmetrical. 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 - Social history:: Smoking status: Patient/guardian denies using tobacco. - Ebola Screening: : Patient denies travel to an Ebola-affected area in the 21 days before illness onset. Screenin:39 Abuse screen: Denies threats or abuse. Denies injuries from another. Nutritional hb screening: No deficits noted. Tuberculosis screening: No symptoms or risk factors identified. Fall Risk None identified. Assessment: 14:39 General: Appears in no apparent distress. Behavior is calm, cooperative. Pain: Pain hb currently is 9 out of 10 on a pain scale. Neuro: Level of Consciousness is awake, alert, obeys commands, Oriented to person, place, time, situation. Cardiovascular: Capillary refill < 3 seconds Patient's skin is warm and dry. Respiratory: Airway is patent Respiratory effort is even, unlabored, Respiratory pattern is regular, symmetrical. GI: No signs and/or symptoms were reported involving the gastrointestinal system. : No signs and/or symptoms were reported regarding the genitourinary system. EENT: No signs and/or symptoms were reported regarding the EENT system. Derm: Skin is pink, warm \T\ dry. Musculoskeletal: Reports right arm and hand pain. 15:30 Reassessment: Patient appears in no apparent distress at this time. Patient and/or hb family updated on plan of care and expected duration. Pain level reassessed. Patient is alert, oriented x 3, equal unlabored respirations, skin warm/dry/pink. 16:28 Reassessment: Patient appears in no apparent distress at this time. Patient and/or hb family updated on plan of care and expected duration. Pain level reassessed. Patient is alert, oriented x 3, equal unlabored respirations, skin warm/dry/pink. Vital Signs: 12:41 BP 135 / 91; Pulse 63; Resp 18; Temp 98.1(O); Weight 154.22 kg (R); Height 5 ft. 6 in. aj1 (167.64 cm) (R); Pain 10/10; 15:00 BP 122 / 68; Pulse 65; Resp 16; Pulse Ox 99% on R/A; hb 12:41 Body Mass Index 54.88 (154.22 kg, 167.64 cm) aj1 ED Course: 12:27 Patient arrived in ED. mr 12:41 Triage completed. aj1 12:41 Arm band placed on Patient placed in waiting room, Patient notified of wait time. aj1 12:56 Jennifer Archer FNP-C [facility] snw 12:56 Richard Alcaraz MD is Attending Physician. snw 13:45 Radiology exam delayed due to attempted twice to get patient for U/S patient not in aa4 lobby. 13:59 UPPER EXTREMITY VENOUS UNILATE In Process Unspecified. EDMS 14:39 Supriya Frey, RN is Primary Nurse. hb 14:39 Patient has correct armband on for positive identification. Call light in reach. hb 16:28 No provider procedures requiring assistance completed. Patient did not have IV access hb during this emergency room visit. Administered Medications: No medications were administered Outcome: 16:09 Discharge ordered by . snw 16:28 Discharged to home ambulatory. hb 16:28 Condition: stable 16:28 Discharge instructions given to patient, Instructed on discharge instructions, follow up and referral plans. medication usage, Demonstrated understanding of instructions, follow-up care, medications, Prescriptions given X 1. 16:29 Patient left the ED. hb Signatures: Dispatcher [employer] EDWI Renetta Bashir RN RN aj1 Jennifer Archer, RIG BUILDER-C RIG BUILDER-Rigoberto SantosGela mr VasquezLisa [facility] Supriya Frey, RN RN hb
--- NOTE | 2019-05-24 16:10 | EDPHYS ---
Physician Documentation [facility] Name: Esther Zimmer Age: 44 yrs Sex: Female : 1975 Arrival Date: 05/24/2019 Time: 12:27 Bed 12 Private MD: ED Physician Richard Alcaraz HPI: 05/24 15:16 This 44 yrs old Female presents to ER via Ambulatory with complaints of Arm snw Swelling. 15:16 Onset: The symptoms/episode began/occurred 3 day(s) ago, and became worse last night, snw s/p slipping on the stairs, and became persistent. Associated signs and symptoms: Pertinent positives: The patient does not have any pertinent positive signs or symptoms associated with pediatric illness. Modifying factors: The patient symptoms are alleviated by nothing, the patient symptoms are aggravated by cold environment, movement. The patient has not experienced similar symptoms in the past. The patient has been recently seen by a physician: The patient has been recently seen at the [facility] Emergency Department, 2 days ago. 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 - Social history:: Smoking status: Patient/guardian denies using tobacco. - Ebola Screening: : Patient denies travel to an Ebola-affected area in the 21 days before illness onset. ROS: 15:15 Constitutional: Negative for fever, chills, and weight loss, Eyes: Negative for injury, snw pain, redness, and discharge, ENT: Negative for injury, pain, and discharge, Neck: Negative for injury, pain, and swelling, Cardiovascular: Negative for chest pain, palpitations, and edema, Respiratory: Negative for shortness of breath, cough, wheezing, and pleuritic chest pain, Abdomen/GI: Negative for abdominal pain, nausea, vomiting, diarrhea, and constipation, Back: Negative for injury and pain, : Negative for injury, bleeding, discharge, and swelling, Skin: Negative for injury, rash, and discoloration, Neuro: Negative for headache, weakness, numbness, tingling, and seizure. 15:15 MS/extremity: Positive for injury or acute deformity, pain, tenderness, of the left shoulder and left arm. Exam: 15:14 Head/Face: Normocephalic, atraumatic. Eyes: Pupils equal round and reactive to light, snw extra-ocular motions intact. Lids and lashes normal. Conjunctiva and sclera are non-icteric and not injected. Cornea within normal limits. Periorbital areas with no swelling, redness, or edema. ENT: Nares patent. No nasal discharge, no septal abnormalities noted. Tympanic membranes are normal and external auditory canals are clear. Oropharynx with no redness, swelling, or masses, exudates, or evidence of obstruction, uvula midline. Mucous membranes moist. Neck: Trachea midline, no thyromegaly or masses palpated, and no cervical lymphadenopathy. Supple, full range of motion without nuchal rigidity, or vertebral point tenderness. No Meningismus. Chest/axilla: Normal chest wall appearance and motion. Nontender with no deformity. No lesions are appreciated. Cardiovascular: Regular rate and rhythm with a normal S1 and S2. No gallops, murmurs, or rubs. Normal PMI, no JVD. No pulse deficits. Respiratory: Lungs have equal breath sounds bilaterally, clear to auscultation and percussion. No rales, rhonchi or wheezes noted. No increased work of breathing, no retractions or nasal flaring. Abdomen/GI: Soft, non-tender, with normal bowel sounds. No distension or tympany. No guarding or rebound. No evidence of tenderness throughout. Back: No spinal tenderness. No costovertebral tenderness. Full range of motion. Skin: Warm, dry with normal turgor. Normal color with no rashes, no lesions, and no evidence of cellulitis. Neuro: Awake and alert, GCS 15, oriented to person, place, time, and situation. Cranial nerves II-XII grossly intact. Motor strength 5/5 in all extremities. Sensory grossly intact. Cerebellar exam normal. Normal gait. Psych: Awake, alert, with orientation to person, place and time. Behavior, mood, and affect are within normal limits. 15:14 Constitutional: The patient appears alert, awake, obese. 15:14 Musculoskeletal/extremity: Extremities: grossly normal except: noted in the left arm: ROM: limited active range of motion due to pain, in the left arm, Circulation is intact in all extremities. Sensation intact. Joints: All joints are normal except the left shoulder displays painful range of motion, tenderness, full ROM. Vital Signs: 12:41 BP 135 / 91; Pulse 63; Resp 18; Temp 98.1(O); Weight 154.22 kg (R); Height 5 ft. 6 in. aj1 (167.64 cm) (R); Pain 10/10; 15:00 BP 122 / 68; Pulse 65; Resp 16; Pulse Ox 99% on R/A; hb 12:41 Body Mass Index 54.88 (154.22 kg, 167.64 cm) aj1 MDM: 14:49 Patient medically screened. snw 16:10 Data reviewed: vital signs, nurses notes. Data interpreted:. Counseling: I had a snw detailed discussion with the patient and/or guardian regarding: the historical points, exam findings, and any diagnostic results supporting the discharge/admit diagnosis, the presence of at least one elevated blood pressure reading (>120/80) during this emergency department visit, radiology results, the need for outpatient follow up, to return to the emergency department if symptoms worsen or persist or if there are any questions or concerns that arise at home. 05/24 12:49 Order name: UPPER EXTREMITY VENOUS UNILATE EDNE Administered Medications: No medications were administered Disposition: 20:42 Co-signature as Attending Physician, Richard Alcaraz MD I agree with the assessment and ashley plan of care. Disposition: 05/24/19 16:09 Discharged to Home. Impression: Pain in forearm, Pain in left shoulder. - Condition is Stable. - Discharge Instructions: Muscle Strain, Shoulder Pain, Heat Therapy. - Prescriptions for orphenadrine citrate 100 mg Oral Tablet Sustained Release - take 1 tablet by ORAL route 2 times per day As needed; 20 tablet. - Work release form, Medication Reconciliation Form, Thank You Letter, Antibiotic Education, Prescription Opioid Use form. - Follow up: Emergency Department; When: As needed; Reason: Worsening of condition. Follow up: Private Physician; When: 2 - 3 days; Reason: Recheck today's complaints, Continuance of care, Re-evaluation by your physician. - Notes: continue anti-inflammatories as prescribed Signatures: Dispatcher [employer] EDNE Renetta Bashir RN RN aj1 Richard Alcaraz MD MD cha Therrien, Shelly, PHARMACY ASSISTANT-C PHARMACY ASSISTANT-Csnw Supriya Frey, RN RN Corrections: (The following items were deleted from the chart) 12:49 12:47 Extremity Venous Uni Ltd+US.RAD.BRZ ordered. [facility] EDMS 16:29 16:09 05/24/2019 16:09 Discharged to Home. Impression: Pain in forearm; Pain in left hb shoulder. Condition is Stable. Discharge Instructions: Muscle Strain, Shoulder Pain, Heat Therapy. Prescriptions for orphenadrine citrate 100 mg Oral Tablet Sustained Release - take 1 tablet by ORAL route 2 times per day As needed; 20 tablet. and Forms are Work release form, Medication Reconciliation Form, Thank You Letter, Antibiotic Education, Prescription Opioid Use. Follow up: Emergency Department; When: As needed; Reason: Worsening of condition. Follow up: Private Physician; When: 2 - 3 days; Reason: Recheck today's complaints, Continuance of care, Re-evaluation by your physician. snw
--- NOTE | 2019-05-24 16:30 | RAD REPORT ---
EXAM DESCRIPTION: US - UPPER EXTREMITY VENOUS UNILATE - 05/24/2019 4:05 pm CLINICAL HISTORY: Left arm pain and swelling COMPARISON: None. TECHNIQUE: Real-time sonographic evaluation of the left upper extremity deep venous systems was perf ormed. FINDINGS: Normal compressibility, flow augmentation, phasic flow and spontaneous flow are identified in the left upper extremity deep venous system. No intraluminal filling defects seen. Internal jugul ar and subclavian veins are normal as well. IMPRESSION: No DVT in the left upper extremity.
[2019-05-24 17:18] VITALS: TEMP 98.1
[2019-05-24 17:19] VITALS: BP 122/68; O2SAT 99
== END 2019-05-24 16:29 | disposition home or self-care (01) ==
LOC: ER 12:25
DX: M25.512 Pain in left shoulder (principal); E03.9 Hypothyroidism, unspecified
CPT/HCPCS: 93971; 99283

== ENCOUNTER 2020-08-26 21:57 | Emergency (ER) | payer BC ==
--- OUTSIDE RECORDS SUMMARY | 2020-08-26 21:59 | XMS REPORT | Continuity of Care Document ---
:1975 Author Organization [facility] t Address [address] [place] [address] Care Team Providers Name Role Phone Unavailable Unavailable Unavailable Problems This patient has no known problems. Allergies, Adverse Reactions, Alerts This patient has no known allergies or adverse reactions. Medications This patient has no known medications. Procedures This patient has no known procedures. Results This patient has no known results.
[2020-08-26 23:56] LABS: SARS-COV-2 RT PCR NEGATIVE (NEGATIVE)
--- NOTE | 2020-08-27 00:03 | ER ---
Nurse's Notes [facility] Name: Esther Zimmer Age: 45 yrs Sex: Female : 1975 Arrival Date: 08/26/2020 Time: 21:58 Bed 23 Private MD: Diagnosis: Dyspnea;Allergic rhinitis, unspecified Presentation: 08/26 22:06 Chief complaint: Patient states: has been having trouble breathing , she thought it was iw anxiety but it feels different, also has a headache and upper abd pain, started this afternoon. Coronavirus screen: difficulty breathing, Client presents with at least one sign or symptom that may indicate coronavirus-19. Standard/surgical mask placed on the client. Provider contacted for isolation considerations. Ebola Screen: Patient negative for fever greater than or equal to 101.5 degrees Fahrenheit, and additional compatible Ebola Virus Disease symptoms Patient denies exposure to infectious person. Patient denies travel to an Ebola-affected area in the 21 days before illness onset. No symptoms or risks identified at this time. Initial Sepsis Screen: Does the patient meet any 2 criteria? No. Patient's initial sepsis screen is negative. Does the patient have a suspected source of infection? No. Patient's initial sepsis screen is negative. Risk Assessment: Do you want to hurt yourself or someone else? Patient reports no desire to harm self or others. Onset of symptoms was August 26, 2020. 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 - Social history:: Smoking status: Patient denies any tobacco usage or history of. Screenin:00 Abuse screen: Denies threats or abuse. Denies injuries from another. Nutritional zb screening: No deficits noted. Tuberculosis screening: No symptoms or risk factors identified. Fall Risk None identified. Assessment: 22:48 Reassessment: xray at bedside. zb 23:00 General: Appears in no apparent distress. comfortable, Behavior is calm, cooperative, zb appropriate for age. Pain: Complains of pain in right lutheran and left lutheran Pain currently is 8 out of 10 on a pain scale. Quality of pain is described as aching, pressure. Neuro: Level of Consciousness is awake, alert, obeys commands, Oriented to person, place, time, situation, Reports headache frontal area. Cardiovascular: Capillary refill < 3 seconds Patient's skin is warm and dry. Rhythm is regular. Respiratory: Reports shortness of breath at rest Airway is patent Respiratory effort is even, unlabored, Respiratory pattern is regular, Breath sounds are clear the patient has mild shortness of breath. GI: Reports epigastric pain, nausea. Derm: Skin is intact, is healthy with good turgor, Skin is dry, Skin is normal. Musculoskeletal: Range of motion: intact in all extremities. 08/27 00:06 Reassessment: PT LEFT WITHOUT D/C INSTRUCTION. PT RECEIVED INFORMATION FROM ECP. zb Vital Signs: 08/26 22:06 BP 135 / 85; Pulse 64; Resp 16; Temp 97.5; Pulse Ox 100% on R/A; Weight 148.78 kg; iw Height 5 ft. 6 in. (167.64 cm); Pain 9/10; 23:00 BP 133 / 89; Pulse 66; Resp 16; Pulse Ox 100% ; zb 23:47 BP 134 / 80; Pulse 56; Resp 16; Pulse Ox 100% on R/A; zb 22:06 Body Mass Index 52.94 (148.78 kg, 167.64 cm) ED Course: 21:58 Patient arrived in ED. am4 22:07 Triage completed. iw 22:08 Sade Ruvalcaba FNP-C is [facility]. kb 22:08 Richard Alcaraz MD is Attending Physician. kb 22:09 Arm band placed on. iw 22:48 Tosin Anderson, NELIA is Primary Nurse. zb 22:53 Chest Single View XRAY In Process Unspecified. EDMS 22:59 EKG done, by ED staff, reviewed by Sade LYNN COVID swab sent to lab. Flu zb and/or RSV swab sent to lab. 23:03 Patient has correct armband on for positive identification. Bed in low position. Call zb light in reach. Side rails up X 1. Pulse ox on. NIBP on. Door closed. Noise minimized. 08/27 00:07 No provider procedures requiring assistance completed. Patient did not have IV access zb during this emergency room visit. Administered Medications: No medications were administered Outcome: 00:02 Discharge ordered by MD. almazan 00:07 Eloped Time discovered patient gone: August 27, 2020 at 00:08 zb 00:07 Condition: stable 00:07 Discharge instructions given to UNABLE TO GIVE PATIENT LET PRIOR TO D/ C INSTRUCTIONS. 00:08 Patient left the ED. zb Signatures: Dispatcher [employer] EDSade Rosen, LEAH BRUNNER-Candi Duron, RN Tosin Crespo RN RN Araceli Han am4
--- NOTE | 2020-08-27 00:03 | EDPHYS ---
Physician Documentation [facility] Name: Esther Zimmer Age: 45 yrs Sex: Female : 1975 Arrival Date: 08/26/2020 Time: 21:58 Bed 23 Private MD: ED Physician Richard Alcaraz HPI: 08/27 00:59 This 45 yrs old Female presents to ER via Ambulatory with complaints of kb Breathing Difficulty, Headache, Abdominal Pain. 00:59 The patient has shortness of breath at rest. Onset: The symptoms/episode began/occurred kb at 15:00. Duration: The symptoms are continuous. The patient's shortness of breath has no apparent modifying factors. Associated signs and symptoms: Pertinent positives: headache, upper abd pain. Severity of symptoms: At their worst the symptoms were mild in the emergency department the symptoms are unchanged. The patient has not experienced similar symptoms in the past. The patient has not recently seen a physician. 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 - Social history:: Smoking status: Patient denies any tobacco usage or history of. ROS: 08/27 00:59 Constitutional: Negative for fever, chills, and weight loss, Cardiovascular: Negative kb for chest pain, palpitations, and edema, MS/Extremity: Negative for injury and deformity, Skin: Negative for injury, rash, and discoloration. Respiratory: Positive for shortness of breath. Abdomen/GI: Positive for abdominal pain. Neuro: Positive for headache. Exam: 00:59 Constitutional: This is a well developed, well nourished patient who is awake, alert, kb and in no acute distress. Head/Face: Normocephalic, atraumatic. Cardiovascular: Regular rate and rhythm with a normal S1 and S2. No gallops, murmurs, or rubs. No pulse deficits. Respiratory: Respirations even and unlabored. No increased work of breathing, no retractions or nasal flaring. Abdomen/GI: Soft, non-tender. No distention Skin: Warm, dry with normal turgor. Normal color. MS/ Extremity: Pulses equal, no cyanosis. Neurovascular intact. Full, normal range of motion. Neuro: Awake and alert, GCS 15, oriented to person, place, time, and situation. Moves all extremities. Normal gait. Vital Signs: 08/26 22:06 BP 135 / 85; Pulse 64; Resp 16; Temp 97.5; Pulse Ox 100% on R/A; Weight 148.78 kg; iw Height 5 ft. 6 in. (167.64 cm); Pain 9/10; 23:00 BP 133 / 89; Pulse 66; Resp 16; Pulse Ox 100% ; zb 23:47 BP 134 / 80; Pulse 56; Resp 16; Pulse Ox 100% on R/A; zb 22:06 Body Mass Index 52.94 (148.78 kg, 167.64 cm) iw MDM: 22:16 Patient medically screened. [facility] 08/27 00:58 Data reviewed: vital signs, nurses notes. Data interpreted: Pulse oximetry: on room air kb is 100 %. Interpretation: normal. Counseling: I had a detailed discussion with the patient and/or guardian regarding: the historical points, exam findings, and any diagnostic results supporting the discharge/admit diagnosis, lab results, radiology results, the need for outpatient follow up, a family practitioner, to return to the emergency department if symptoms worsen or persist or if there are any questions or concerns that arise at home. 08/26 22:42 Order name: Chest Single View XRAY kb 08/26 22:42 Order name: EKG; Complete Time: 22:43 kb 04 22:42 Order name: EKG - Nurse/Tech; Complete Time: 22:59 kb 08/26 23:56 Order name: COVID-19/FLU A+B; Complete Time: 23:56 EDMS Administered Medications: No medications were administered Disposition: 14:52 Co-signature as Attending Physician, Richard Alcaraz MD I agree with the assessment and [facility] plan of care. Disposition: 08/27/20 00:02 Discharged to Home. Impression: Dyspnea, Allergic rhinitis, unspecified. - Condition is Stable. - Discharge Instructions: Shortness of Breath, [id number], Allergies, [id number]. - Medication Reconciliation Form, Thank You Letter, Antibiotic Education, Prescription Opioid Use form. - Follow up: Emergency Department; When: As needed; Reason: Worsening of condition. Follow up: Private Physician; When: 2 - 3 days; Reason: Recheck today's complaints, Continuance of care, Re-evaluation by your physician. Signatures: Dispatcher [employer] [facility] Sade Ruvalcaba, ADVISORY APPLICATION DEVELOPER-C ADVISORY APPLICATION DEVELOPER-Richard Silva MD MD cha Williams, Irene, RN RN Tosin Beavers RN RN zb Corrections: (The following items were deleted from the chart) 08/26 23: 22:43 CORONAVIRUS+MR.LAB.BRZ ordered. [facility] 23: 22:43 Influenza Screen (A \T\ B)+BA.LAB.BRZ ordered. [facility] 08/27 00:08 00:02 08/27/2020 00:02 Discharged to Home. Impression: Dyspnea; Allergic rhinitis, zb unspecified. Condition is Stable. Forms are Medication Reconciliation Form, Thank You Letter, Antibiotic Education, Prescription Opioid Use. Follow up: Emergency Department; When: As needed; Reason: Worsening of condition. Follow up: Private Physician; When: 2 - 3 days; Reason: Recheck today's complaints, Continuance of care, Re-evaluation by your physician. kb
[2020-08-27 00:48] VITALS: BP 134/80; TEMP 97.5; O2SAT 100
--- NOTE | 2020-08-27 07:40 | RAD REPORT ---
EXAM DESCRIPTION: RAD - Chest Single View - 08/26/2020 10:56 pm CLINICAL HISTORY: DYSPNEA COMPARISON: February 2019 TECHNIQUE: AP portable chest image was obtained 08/26/2020 10:56 pm . FINDINGS: Lungs are clear. Heart and vasculature are normal. No measurable pleural effusion and no p neumothorax. No acute bony abnormality seen. No acute aortic findings suspected. IMPRESSION: No acute cardiopulmonary process. No significant change from comparison study.
== END 2020-08-27 00:08 | disposition home or self-care (01) ==
LOC: ER 21:57
DX: J30.9 Allergic rhinitis, unspecified (principal); Z20.822 Contact with and (suspected) exposure to COVID-19; E03.9 Hypothyroidism, unspecified
CPT/HCPCS: 0240U; 71045; 99284

== ENCOUNTER 2021-09-14 00:54 | Emergency (ER) | payer BC ==
--- OUTSIDE RECORDS SUMMARY | 2021-09-14 00:57 | XMS REPORT | Continuity of Care Document ---
:1975 Author Organization [facility] t Address [address] [place] [address] Care Team Providers Name Role Phone Group, 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 Attending Clinician Doctor Unassigned, Name Attending Clinician Unavailable Juana Admitting Clinician Unavailable Mela Admitting Clinician Unavailable Payers Payer Name Policy Type Policy Number Effective Date Expiration Date Rudy CERVANTES 2 [id number] 2019 00:00:00 Problems Condition Condition Condition Status Onset Resolution Last Treating Co mments Source Name Details Category Date Date Treatment Clinician Date Morbid Morbid Disease Active NPI:183 obesity obesity 4 [id number] with body with body 00:00: mass index mass index 00 of of 40.0-49.9 40.0-49.9 Morbid Morbid Disease Active NPI:183 obesity obesity 4 [id number] with body with body 00:00: mass index mass index 00 of 50 or of 50 or higher higher Allergies, Adverse Reactions, Alerts Allergy Allergy Status Severity Reaction(s) Onset Inactive Treating Comm ents Source Name Type Date Date Clinician No Known DA Active U 2020-05 [facility]21 [facility] e 00 [facility] No Known DA Active U [facility] All[facility] 8-03 [facility] 00:00: e 00 [facility] NO KNOWN Drug Active NPI:183 ALLERGIE Class [id number] S Social History Social Habit Start Date Stop Date Quantity Comments Source Alcohol intake 2021-08-30 2021-08-30 Ex-drinker Jodie kenny 00:00:00 00:00:00 (finding) Exposure to 2021-08-19 2021-08-29 Not sure NPI:[id number] 1 SARS-CoV-2 00:00:00 20:18:00 (event) Sex Ass[birth year] At [birth year] NPI:[id number] 00:00:00 00:00:00 Smoking Status Start Date Stop Date Source Never smoked tobacco Jodie Ana old Medications Ordered Filled Start Stop Current Ordering Indication Dosage Frequency Signature Comments Components Source Medication Medication Date Date Medication? Clinician (SIG) Name Name Bilateral 2021- No [id number] 80mg Ke lsey Injection: 08-30 Seybold Methylpredn 17:00: 17:48 isolone 00 :00 Acetate (Depo-Medro l) 40 mg/ml, 80mg - Physician Administere d (J1030) Bilateral 2021- No [id number] 80mg 80 mg, Jodie Injection: 08-30 Physician Danielle kenny Methylpredn 17:00: 17:48 Administer isolone 00 :00 ed, ONCE, Acetate 1 dose, On (Depo-Medro Mon l) 40 08/30/21 at mg/ml, 80mg 1200 - Physician Administere d (J1030) Cholecalcif Yes 1{tbl} 1 tablet Jodie george 25 MCG -25 every 24 Seyb old (1000 UT) 11:41: hours oral Tablet 25 diphenhydrA 2021- No [id number] 50mg NPI:183 MINE 08-30 [id number] (BENADRYL) 02:45: 01:41 injection 00 :00 50 mg diphenhydrA 2021- No [id number] 50mg 50 mg, NPI:183 MINE 08-30 Intramuscu [id number] (BENADRYL) 02:45: 01:41 lar, ONCE, injection 00 :00 1 dose, On 50 mg 08/29/21 at 2145, Routine diphenhydrA 2021- No [id number] 25mg NPI:183 MINE 08-30- [id number] (BENADRYL) 02:45: 01:40 12.5 mg/5 00 :24 mL solution 25 mg hydrOXYzine Yes [id number] 25mg Take 1 NPI:183 25 mg 4-24 tablet by [id number] tablet 00:00: mouth 00 every 6 (six) hours. hydrocortis Yes [id number] Apply to NPI:183 one 1 % 4-24 area(s) [id number] cream 00:00: daily. 00 Hydrocortis 0 Yes Apply Kelse y one 1 % 4-24 topically Seybold apply 00:00: daily externally 00 Cream hydrOXYzine 0 Yes 25mg Take 25 mg Jodie HCl 25 MG 4-24 by mouth Seybol d oral Tablet 00:00: every 6 00 (six) hours permethrin 2021- Yes [id number] Apply to NPI:183 5 % cream 08-29 04-25 area(s) [id number] 1 00:00: 04:59 once now 00 :00 for 1 dose. Apply to neck down, and reapply in 1 week. Sertraline Yes 100mg Take 100 Ke lsey HCl 100 MG 4-23 mg by Seybold oral Tablet 00:00: mouth 00 daily Bupropion Yes 150mg Take 150 Celestino sey HCL XL 150 4-06 mg by Seybold MG OR TB24 00:00: mouth 00 every morning Enoxaparin Yes INJECT ONE K elsey (LOVENOX) 3-20 (1) Seybold 40 MG/0.4ML 00:00: SYRINGE subcutaneou 00 ONCE s Solution DAILY. Hyoscyamine Yes as needed K elsey Sulfate 3-20 Seybold 0.125 MG 00:00: sublingual 00 SL Tab ibuprofen No 800mg 800 mg, NPI :183 (IBU) 2-28 - Oral, [id number] tablet 800 00:45: 23:33 ONCE, 1 mg 00 :00 dose, On 07/04/21 at 1845, BALJINDER Levothyroxi Yes [id number] 75ug Take 1 Jodie ne Sodium 1-13 tablet (75 Seyb old 75 MCG oral 00:00: mcg total) Tab 00 by mouth daily ondansetron Yes [id number] 8mg Take 1 NPI:183 (ZOFRAN) 8 9-22 tablet by 1318 781 mg tablet 00:00: mouth 00 every 8 (eight) hours as needed for Nausea and Vomiting (N/V). 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 ondansetron Yes [id number] 8mg Take 1 NPI:183 (ZOFRAN) 8 9-22 tablet by 1318 781 mg tablet 00:00: mouth 00 every 8 (eight) hours as needed for Nausea and Vomiting (N/V). 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 ondansetron 2019-0 Yes [id number] 8mg Take 1 NPI:183 (ZOFRAN) 8 9-22 tablet by 1318 781 mg tablet 00:00: mouth 00 every 8 (eight) hours as needed for Nausea and Vomiting (N/V). 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 ondansetron 2018-0 Yes [id number] 8mg Take 1 NPI:183 (ZOFRAN) 8 9-22 tablet by 1318 781 mg tablet 00:00: mouth 00 every 8 (eight) hours as needed for Nausea and Vomiting (N/V). 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 ondansetron 20190 Yes [id number] 8mg Take 1 NPI:183 (ZOFRAN) 8 9-22 tablet by 1318 781 mg tablet 00:00: mouth 00 every 8 (eight) hours as needed for Nausea and Vomiting (N/V). 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 omeprazole 2016-0 Yes 20mg Take 1 Tab N PI:183 (PRILOSEC 1-31 by mouth [id number] 1 OTC) 20 mg 00:00: daily. tablet 00 omeprazole 2016-0 Yes 20mg Take 1 Tab N PI:183 (PRILOSEC 1-31 by mouth [id number] 1 OTC) 20 mg 00:00: daily. tablet 00 omeprazole 2016-0 Yes 20mg Take 1 Tab N PI:183 (PRILOSEC 1-31 by mouth [id number] 1 OTC) 20 mg 00:00: daily. tablet 00 omeprazole Yes 20mg Take 1 Tab N PI:183 (PRILOSEC 1-31 by mouth [id number] 1 OTC) 20 mg 00:00: daily. tablet 00 omeprazole Yes 20mg Take 1 Tab N PI:183 (PRILOSEC 1-31 by mouth [id number] 1 OTC) 20 mg 00:00: daily. tablet 00 Omeprazole Yes 20mg Take 20 mg K elsey Magnesium 1-31 by mouth Seybol d 20 MG oral 00:00: Tablet 00 Delayed Response levothyroxi 2014-05 Yes NPI:18 3 ne 0-11 [id number] (SYNTHROID) 00:00: 50 mcg 00 tablet levothyroxi 2014-05 Yes NPI:18 3 ne 0-11 [id number] (SYNTHROID) 00:00: 50 mcg 00 tablet levothyroxi 2014-05 Yes NPI:18 3 ne 0-11 [id number] (SYNTHROID) 00:00: 50 mcg 00 tablet levothyroxi 2014-05 Yes NPI:18 3 ne 0-11 [id number] (SYNTHROID) 00:00: 50 mcg 00 tablet levothyroxi 2014-05 Yes NPI:18 3 ne 0-11 [id number] (SYNTHROID) 00:00: 50 mcg 00 tablet Vital Signs Vital Name Observation Time Observation Value Comments Source Body weight 2021-08-30 16:36:00 145.605 kg Jodiedanielle whittzoya BMI 2021-08-30 16:36:00 51.81 kg/m2 Jodie Rudy david Systolic blood pressure 2021-08-30 01:23:00 121 mm[Hg] Diastolic blood 2021-08-30 01:23:00 82 mm[Hg] NPI:1 [id number] pressure Heart rate 2021-08-30 01:23:00 72 /min NPI:1831 [id number] Body temperature 2021-08-30 01:23:00 36.56 Prachi Respiratory rate 2021-08-30 01:23:00 17 /min Body height 2021-08-30 01:23:00 167.6 cm NPI:1831 [id number] Body weight 2021-08-30 01:23:00 146.693 kg NPI:1831 201408 BMI 2021-08-30 01:23:00 52.20 kg/m2 NPI:1831 [id number] Oxygen saturation in 2021-08-30 01:23:00 98 /min Arterial blood by Pulse oximetry Systolic blood pressure 2021-08-19 23:35:00 129 mm[Hg] Diastolic blood 2021-08-19 23:35:00 81 mm[Hg] NPI:1 [id number] pressure Heart rate 2021-08-19 23:35:00 87 /min NPI:1831 [id number] Body temperature 2021-08-19 23:35:00 36.44 Prachi Respiratory rate 2021-08-19 23:35:00 18 /min Body height 2021-08-19 23:35:00 165.1 cm NPI:1831 978229 Body weight 2021-08-19 23:35:00 147.419 kg NPI:1831 177856 BMI 2021-08-19 23:35:00 54.08 kg/m2 NPI:1831 [id number] Oxygen saturation in 2021-08-19 23:35:00 98 /min Arterial blood by Pulse oximetry Systolic blood pressure 2021-07-04 23:18:23 154 mm[Hg] Diastolic blood 2021-07-04 23:18:23 84 mm[Hg] NPI:1 [id number] pressure Heart rate 2021-07-04 23:18:23 70 /min NPI:1831 447116 Respiratory rate 2021-07-04 23:18:23 20 /min Oxygen saturation in 2021-07-04 23:18:23 98 /min Arterial blood by Pulse oximetry Body temperature 2021-07-04 21:42:00 36.44 Prachi Body height 2021-07-04 21:42:00 160 cm NPI:1831 [id number] Body weight 2021-07-04 21:42:00 160.12 kg NPI:1831 [id number] BMI 2021-07-04 21:42:00 62.53 kg/m2 NPI:1831 334990 Systolic blood pressure 2021-04-08 23:49:00 135 mm[Hg] Diastolic blood 2021-04-08 23:49:00 88 mm[Hg] NPI:1 [id number] pressure Heart rate 2021-04-08 23:49:00 80 /min NPI:1831 [id number] Body temperature 2021-04-08 23:49:00 36.61 Prachi Respiratory rate 2021-04-08 23:49:00 18 /min Body height 2021-04-08 23:49:00 165.1 cm NPI:1831 129505 Body weight 2021-04-08 23:49:00 158.714 kg NPI:1831 990327 BMI 2021-04-08 23:49:00 58.23 kg/m2 NPI:1831 [id number] Oxygen saturation in 2021-04-08 23:49:00 100 /min Arterial blood by Pulse oximetry Procedures Procedure Date / Time Performed Performing Clinician Ming sheldon [id number] 2021-07-22 00:00:00 [facility] [id number] 2021-07-22 00:00:00 [facility] CONSENT/REFUSAL FOR 2021-07-04 21:35:26 Doctor Unassigned, 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 I:[id number] DIAGNOSIS AND Name TREATMENT POCT GRP A STREP 2021-04-08 23:53:00 Marlo Valero NPI:[id number] (MOLECULAR) ASSIGNMENT OF BENEFITS 2021-04-08 23:42:30 Doctor Unassigned, No Name Encounters Start End Encounter Admission Attending Care Care Encounter Source Date/Time Date/Time Type Type Clinicians Facility Department ID 2021-06-02 Outpatient Reardon, [facility] [id number] NPI:174 14:12:36 Josselin [id number] 2021-06-02 Outpatient Caron [facility] [id number] NPI:174 14:07:54 Josselin [id number] 2021-10-21 2021-10-21 Outpatient JODIE RAWLS JODIE [id number] Jodie 08:30:00 08:30:00 LISBET Seyb old 2021-09-14 2021-09-14 Outpatient JOY JODIE RIBERA [id number] Jodie 09:00:00 09:00:00 YFN Seybol d 2021-08-30 2021-08-30 Office LUDWIN WHALEN [id number] Jodie 11:20:00 11:20:00 Visit MARQUES 350.1.13.13 Se beto 1.2.7.2.686 [id number] 2021-08-30 2021-08-30 Outpatient JODIE RIBERA [id number] Jodie 11:15:00 11:15:00 Seybol d 2021-08-30 2021-08-30 Outpatient KOBY JODIE RIBERA [id number] Jodie 00:00:00 00:00:00 MARQUES Seybol d 2021-08-29 2021-08-29 Urgent Marleen RUST [id number] NPI:183 20:20:00 20:40:00 Care Sachi [facility] 350.1.13.10 [id number] [facility] 4.2.7.2.686 RAMY?BLEA [id number] [place] [address] MEDICAL OFFICE [facility] 2021-08-29 2021-08-29 Outpatient R [facility] [id number] NPI:183 20:20:00 20:20:00 [id number] 2021-08-29 2021-08-29 Outpatient R MARLEEN [facility] [id number] NPI:183 20:20:00 20:20:00 SACHI [id number] 1 2021-08-19 2021-08-19 Urgent Anjum RUST [id number] NPI:183 18:40:00 19:00:00 Care [facility] HEALTH 350.1.13.10 13 [id number] [place] 4.2.7.2.686 RAMY?BLEA [id number] [facility] 370 MEDICAL OFFICE BUILDING 2021-08-19 2021-08-19 Outpatient R [facility] [id number] NPI:183 18:40:00 18:40:00 [id number] 1 2021-08-19 2021-08-19 [facility] [id number] NPI:183 18:40:00 18:40:00 RANIA [id number] 1 2021-07-22 2021-07-24 Inpatient KURTIS Paulino SURG [id number] [facility] 14:35:00 15:26:00 Audencio [id number] [facility] 2021-07-22 2021-07-24 Inpatient KURTIS Paulino SURG [id number] [facility] 14:35:00 15:26:00 Audencio 05 [facility] 2021-07-04 2021-07-04 Emergency X PINEDA, RUST ERT [id number] NPI:183 15:47:00 17:38:00 LAYLA [id number] 1 2021-07-04 2021-07-04 Emergency [facility] [id number] NPI:183 15:47:00 17:38:00 Layla [place] 350.1.13.10 1 [id number] [place] 4.2.7.2.686 [place] [id number] 2021-07-04 2021-07-04 Outpatient R [facility] [id number] NPI:183 15:00:00 15:00:00 [id number] 2021-07-04 2021-07-04 Out[facility] [id number] NPI:183 15:00:00 15:00:00 SAMANTHA [id number] 2021-05-03 2021-05-03 Outpatient KURTIS Paulino DAYS [id number] [facility] 07:00:00 07:00:00 Audencio [id number] [facility] 2021-05-03 2021-05-03 [facility] [id number] [facility] 07:00:00 07:00:00 Isaiah 37 [facility] 2021-04-08 2021-04-08 Outpatient Claribel DAVE [facility] [id number] NPI:183 17:40:00 18:27:54 JOMAR [id number] 1 2021-04-08 2021-04-08 Urgent Marlo Valero [place] [id number] NPI:183 17:45:48 18:05:48 Shakila Dave [facility] 350.1.13.10 [id number] [place] 4.2.7.2.686 RAMY?BLEA [id number] [place] [address] MEDICAL OFFICE BUILDING 2021-04-08 2021-04-08 Orders Doctor PAM 1.2.840.114 [id number] NPI:183 00:00:00 00:00:00 Only Unassigned, DYLON 350.1.13.10 [id number] [facility] 4.2.7.2.686 [id number] 2021-03-09 2021-03-09 ambulatory STLMLC STLMLC [id number] NPI:174 00:00:00 00:00:00 [id number] Results Test Description Test Time Test Comments Results Result Comments Source SURGICAL 2021-07-26 13:10:00 Test Item Value Reference Range Interpretation Comme nts SURGICAL RUN DATE: (test 07/26/21 [facility] - Lab PAGE 1 RUN TIME: 1310 code = Specimen Inquiry RUN USER: INTERFACE SR) PATIENT: JULIA ROSAS LOC: DULCE Zelaya #: [id number] AGE/SX: 46/ F [facility] DR: Isaiah Arias MD : 79 BED: A DIS: 07/24/21 STATUS: DIS IN TLOC: SPEC #: [id number] RECD: STATUS: DA [facility] #: [id number] LATOYA: 07/22/[address]: Isaiah Arias MD ENTERED: 07/22/21 SP TYPE: SURGICAL OTHR DR: Mely Winslow MD, Nadeem MDORDERED: [id number], ANATOMIC SPEC COPIES TO: Isaiah Arias MD [address] [place] [address] Mely Winslow MD [address] [address] [place] [address] [place] [address] [facility] [address] [place] [address] PROCEDURES: [id number] (07/22/21) TISSUES: A. STOMACH SUBTOTAL / TOTAL RESECTION NOT TUMOR/SLEEVE FINAL DIAGNOSIS PORTION OF STOMACH , SLEEVE GASTRECTOMY: - Mild chronic gastritis. GROSS DESCRIPTION Received in formalin labeled with Patient's name, , MRN and "Portion of stomach";consists of a tubular segment of stomach t hat measures 16.5 cm in length and 1.7-2.5 cm indiameter. The serosal surface is malone, smooth and g listening, presents a staple line thatmeasures 19.5 cm in length. The mucosal surface is malone, smoo th and glistening. No lesionsare grossly identified, cash posting representative sections are submitted in a single cassette. XZ Technical component excluding immunohistochemistry is performed at [facility], [address] [place] [address] Technical component of all immunohistochemistry is perf ormed at [facility], [address] [place] [address], [address], [place] [address] CONTINUED ON NEXT PAGE RUN DATE: 07/26/21 [facility] PAGE 2 RUN TIME: 1310 Specimen Inquiry RUN USER: INTERFACE SPEC #: [id number] PATIENT: JULIA ROSAS #[id number] (Continued) GROSS DESCRIPTION (Continued) Immunohistochemistry: This test was developed and its performance characteristicsd etermined by this laboratory. It has not been approved nor does it need approval by the USFDA. Appro priate positive and negative controls are reviewed and judged to be acceptable.This laboratory i s certified under the Clinical Laboratory Improvement Amendments (CLIA-88)as qualified to perform high co mplexity clinical laboratory testing. Unless gross only, the diagnosis is based upon microscopic exami nation. CLINICAL INFORMATION COLLECTION DATE: 07/22/2021 Signed SIGNATURE ON FILE Cristian Brooks neua 07/26/21 1310 END OF REPORT CBC W/AUTO [id number] 16:36:00 Test Item Value Reference Range Interpretation Comments WHITE BLOOD CELL (test 10.4 K/mm3 4.5-12.5 N code = WBC) RED BLOOD CELL (test code 4.34 mill/mm3 3.7-5.2 N = RBC) HEMOGLOBIN (test code = 12.4 gram/dL 11.5-15.5 N HGB) HEMATOCRIT (test code = 38.3 % 36.0-46.0 N HCT) MEAN CELL VOLUME (test 88.2 fL 80-98 N code = MCV) MEAN CELL HGB (test code 28.6 picogram 27.0-33.0 N = MCH) MEAN CELL HGB 32.4 gram/dL 33.0-36.0 L CONCETRATION (test code = MCHC) RED CELL DISTRIBUTION 13.2 % 11.6-16.2 N WIDTH (test code = RDW) RED CELL DISTRIBUTION 42.5 fL 37.0-51.0 N WIDTH SD (test code = RDW-SD) PLATELET COUNT (test code 230 K/mm3 150-450 N = PLT) MEAN PLATELET VOLUME 10.7 fL 6.7-11.0 N (test code = MPV) NEUTROPHIL % (test code = 73.8 % 39.0-69.0 H NT%) IMMATURE GRANULOCYTE % 0.4 % 0.0-5.0 N (test code = IG%) LYMPHOCYTE % (test code = 17.7 % 25.0-55.0 L LY%) MONOCYTE % (test code = 7.2 % 0.0-10.0 N MO%) EOSINOPHIL % (test code = 0.6 % 0.0-5.0 N EO%) BASOPHIL % (test code = 0.3 % 0.0-1.0 N BA%) NUCLEATED RBC % (test 0.0 % 0-0 N code = NRBC%) NEUTROPHIL # (test code = 7.70 K/mm3 1.8-7.7 N NT#) IMMATURE GRANULOCYTE # 0.04 x10 3/uL 0-0.03 H (test code = IG#) LYMPHOCYTE # (test code = 1.85 K/mm3 1.0-5.0 N LY#) MONOCYTE # (test code = 0.75 K/mm3 0-0.8 N MO#) EOSINOPHIL # (test code = 0.06 K/mm3 0.0-0.5 N EO#) BASOPHIL # (test code = 0.03 K/mm3 0.0-0.2 N BA#) NUCLEATED RBC # (test 0.00 K/mm3 0.0-0.1 N code = NRBC#) MANUAL DIFF REQUIRED NO, ONLY SCAN NEEDED (test code = MDIFF) DIFFERENTIAL [id number] 16:36:00 Test Item Value Reference Range Interpretation Comments STAIN ACCEPTABILITY (test STAIN ACCEPTABLE code = STN ACCEPTABLE) CABOT RINGS (test code = CAB) MORPHOLOGY COMMENT (test NORMAL code = MOC) PLATELET ESTIMATE (test code ADEQUATE = PLTEST) PLATELET MORPHOLOGY (test NORMAL code = PLTMORPH) BASIC METABOLIC [id number] 16:26:00 Test Item Value Reference Range Interpretation Comments SODIUM (test code = 138 mmol/L 136-145 N NA) POTASSIUM (test code 3.8 mmol/L 3.5-5.1 N = K) CHLORIDE (test code 103.0 mmol/L 98-107 N = CL) CARBON DIOXIDE (test 29.0 mmol/L 21-32 N code = CO2) ANION GAP (test code 9.8 10-20 L = GAP) GLUCOSE (test code = 102 mg/dL 74-106 N GLU) BLOOD UREA NITROGEN 7 mg/dL 7-18 N (test code = BUN) GLOMERULAR > 60 mL/min See_Comment Estimated GFR b y FILTRATION RATE using Modifi ed MDRD (test code = GFR) formula. ron kidney disease is defined as eith er kidney damageor GFR <60 mL/min/1.73 m2 for >3 months. [Automated mess age] The system [employer]Star generated this result transmitted ref erence range: >=60. Th e reference range was not used to int erpret this result as normal/abnormal . CREATININE (test 0.50 mg/dL 0.55-1.02 L Note sommers ge in code = CREAT) reference rang e due to change in reagent. 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 [facility] COVID 19 Asymptomatic IH [id number] 06:28:00 Test Item Value Reference Range Interpretation Comments COVID 19 Asymptomatic IH AG (test NEGATIVE NEGATIVE code = COVNONPUIAG) HCG SERUM [id number] 16:27:00 Test Item Value Reference Range Interpretation Comments HCG SERUM QUAL (test NEGATIVE NEGATIVE This H CGQL test is NOT code = HCGQL) applicable for MALE patients.Check with nurse about probable order error.If Tumor Marker Test needed, nu rse should order test "HCG TU"(Test #550.38792)---- - URINALYSIS [id number] 15:44:00 Test Item Value Reference Range Interpretation Comments UA COLOR (test code = Light-Yellow YELLOW COLU) UA APPEARANCE (test CLEAR CLEAR IS THE S AMPLE code = APPU) FROM ER OR L&D? NO SRG ESDRAS IF T HE ANSWER IS NO,PLEASE DOCUMENT TWO RN SIGNATURES HERE - by [id number] 07/15/21 1544 UA GLUCOSE DIPSTICK NEGATIVE mg/dL NEGATIVE (test code = DGLUU) UA BILIRUBIN DIPSTICK NEGATIVE mg/dL NEGATIVE (test code = BILU) UA KETONE DIPSTICK NEGATIVE mg/dL NEGATIVE (test code = KETU) UA SPECIFIC GRAVITY 1.015 1.001-1.035 (test code = SGU) UA BLOOD DIPSTICK Negative mg/dL NEGATIVE (test code = DEMETRIS) UA PH DIPSTICK (test 6.0 5.0-8.0 code = PARRISH) UA PROTEIN DIPSTICK NEGATIVE mg/dL NEGATIVE (test code = PROU) UA UROBILINIOGEN Normal mg/dL NEGATIVE DIPSTICK (test code = URO) UA NITRITE DIPSTICK NEGATIVE NEGATIVE (test code = CHRISTIANO) UA LEUKOCYTE ESTERASE NEGATIVE Shital/uL NEGATIVE W REFLEX (test code = LEUUR) UA WBC (test code = 0-5 per HPF 0-5 WBCU) UA RBC (test code = 0-3 #/HPF 0-5 RBCU) UA EPITHELIAL CELLS FEW per HPF FEW (test code = EPIU) UA BACTERIA (test NONE SEEN #/HPF NONE code = BACU) UA MUCUS (test code = FEW #/LPF FEW MUCU) Urine Source? Clean CatchCOMPREHENSIVE METABOLIC [id number] 15:43:00 Test Item Value Reference Range Interpretation Comments SODIUM (test code = 136 mmol/L 136-145 N NA) POTASSIUM (test code 3.7 mmol/L 3.5-5.1 N = K) CHLORIDE (test code = 101.0 mmol/L 98-107 N CL) CARBON DIOXIDE (test 30.0 mmol/L 21-32 N code = CO2) ANION GAP (test code 8.7 10-20 L = GAP) GLUCOSE (test code = 104 mg/dL 74-106 N GLU) BLOOD UREA NITROGEN 14 mg/dL 7-18 N (test code = BUN) GLOMERULAR FILTRATION > 60 mL/min See_Comment Estima manan GFR by RATE (test code = using Rinku fied MDRD GFR) formula.Chronic kidney disease is defined as eith er kidney damageor GFR <60 mL/min/1.73 m2 for >3 months. [Automated mess age] The system [employer]Star generated this result transmit manan reference range : >=60. The refer ence range was not u sed to interpret th is result as normal/abnormal . CREATININE (test code 0.60 mg/dL 0.55-1.02 N Note change in = CREAT) reference range due to change in reagent. BUN/CREATININE RATIO 22.6 10-20 H (test code = BUN/CREA) TOTAL PROTEIN (test 7.4 gram/dL 6.4-8.2 N code = PROT) ALBUMIN (test code = 3.9 g/dL 3.4-5.0 N ALB) GLOBULIN (test code = 3.5 gram/dL 2.7-4.2 N GLOB) ALBUMIN/GLOBULIN 1.1 0.75-1.50 N RATIO (test code = A/G) CALCIUM (test code = 9.1 mg/dL 8.5-10.1 N CA) BILIRUBIN TOTAL (test 0.40 mg/dL 0.0-1.0 N code = BILT) SGOT/AST (test code = 31 IUnit/L 15-37 N AST) SGPT/ALT (test code = 35 IUnit/L 12-78 N ALT) ALKALINE PHOSPHATASE 147 IUnit/L 45-117 H Note change in TOTAL (test code = reference range due ALKP) to change in reagent. PROTHROMBIN [id number] 15:28:00 Test Item Value Reference Range Interpretation Comments PROTHROMBIN TIME 10.9 seconds 9.0-14.0 N PATIENT (test code = PTP) INTERNATIONAL NORMAL 1.0 0.8-1.2 N The the rapeutic range RATIO (test code = for oral INR) anticoagulant t herapy formost indicat ions is an internati onal normalized rati o (INR)of between 2.0 and 3.0. The recommended therapeutic INR range for various cli nical situations is l isted below: Clinical Situat ion INR range Pulmonary embol ism treatment (2.0-3.0)Venou s thrombosis treatmentVenous thrombosis prophylaxis (hi gh risk surgery)Prevent ion of systemic emboli sm from: A cute myocardial infa rction Valvula r heart disease Atrial fibrilla tion Mechanical pros thetic heart valves (2.5-3.5) IS PATIENT ON ANTICOAGULANTS? NTHROMBOPLASTIN TIME [id number] 15:28:00 Test Item Value Reference Range Interpretation Comments THROMBOPLASTIN TIME PARTIAL 36.6 seconds 23.0-37.0 N (test code = PTT) IS PATIENT ON ANTICOAGULANTS? NCBC W/AUTO [id number] 15:26:00 Test Item Value Reference Range Interpretation Comments WHITE BLOOD CELL (test code = 8.0 K/mm3 4.5-12.5 N WBC) RED BLOOD CELL (test code = 4.53 mill/mm3 3.7-5.2 N RBC) HEMOGLOBIN (test code = HGB) 12.9 gram/dL 11.5-15.5 N HEMATOCRIT (test code = HCT) 40.4 % 36.0-46.0 N MEAN CELL VOLUME (test code = 89.2 fL 80-98 N MCV) MEAN CELL HGB (test code = MCH) 28.5 picogram 27.0-33.0 N MEAN CELL HGB CONCETRATION 31.9 gram/dL 33.0-36.0 L (test code = MCHC) RED CELL DISTRIBUTION WIDTH 12.9 % 11.6-16.2 N (test code = RDW) RED CELL DISTRIBUTION WIDTH SD 42.0 fL 37.0-51.0 N (test code = RDW-SD) PLATELET COUNT (test code = 238 K/mm3 150-450 N PLT) MEAN PLATELET VOLUME (test code 10.7 fL 6.7-11.0 N = MPV) NEUTROPHIL % (test code = NT%) 64.9 % 39.0-69.0 N IMMATURE GRANULOCYTE % (test 0.5 % 0.0-5.0 N code = IG%) LYMPHOCYTE % (test code = LY%) 24.3 % 25.0-55.0 L MONOCYTE % (test code = MO%) 6.5 % 0.0-10.0 N EOSINOPHIL % (test code = EO%) 3.4 % 0.0-5.0 N BASOPHIL % (test code = BA%) 0.4 % 0.0-1.0 N NUCLEATED RBC % (test code = 0.0 % 0-0 N NRBC%) NEUTROPHIL # (test code = NT#) 5.18 K/mm3 1.8-7.7 N IMMATURE GRANULOCYTE # (test 0.04 x10 3/uL 0-0.03 H code = IG#) LYMPHOCYTE # (test code = LY#) 1.94 K/mm3 1.0-5.0 N MONOCYTE # (test code = MO#) 0.52 K/mm3 0-0.8 N EOSINOPHIL # (test code = EO#) 0.27 K/mm3 0.0-0.5 N BASOPHIL # (test code = BA#) 0.03 K/mm3 0.0-0.2 N NUCLEATED RBC # (test code = 0.00 K/mm3 0.0-0.1 N NRBC#) MANUAL DIFF REQUIRED (test code NO = MDIFF) - XR CHEST 2 [id number] 14:21:00 [facility])Name: ROSASJULIA BLEDSOE : 1975 Sex: F FAX: Isaiah Alexis MD [phone] [place]: O St: PRE FAX: Mark Anthony Plaza MD [phone] Name: JULIA ROSAS [facility] : 1975 Age/S: 46/F [address] Unit #: [id number] Loc:[place] [address] Phys: Isaiah Arias MD Acct: [id number] Dis Date: Status: PRE IN PHONE #: [phone] Exam Date: 07/15/2021 1400 FAX #: [phone] Reason: PREOP EXAMS: CPT CODE: [id number] XR CHEST 2 V [id number] REASON FOR EXAM: PREOP Exam Order Date: 07/15/2021 1:13 PM Ordering M.D.: Isaiah Arias MD PROCEDURE: - XR CHEST 2 V COMPARISON: None FINDINGS: The lungs are clear. There is no pleural effusion or pn eumothorax. Pulmonary vascularity is within normal limits. Cardiomediastinal silhouette is normal in size for technique. The mediastinal contours are within normal limits. Degenerative changes are present in the spine. The visualized upper abdomen is within normal limits. IMPRESSION: No acute cardiopulmonary process. Location: [facility] at 1421 Reported and signed by: Jacobo Singleton MD CC: Carey Arias; Mark Anthony Plaza MD Technologist: Kevin Bernal RT(R) Trnscrd Date/Time/By: 07/15/2021 (1421) : By: [email or web address] Orig Print D/T: S: 07/15/2021 ([id number]) PAGE 1 Signed ReportLIPID PROFILE (CORONARY RISK)2021-05-08 18:08:00 Test Item Value Reference Range Interpretation Comments TRIGLYCERIDES (test 132 mg/dL 20-150 N code = TRIG) CHOLESTEROL (test code 179 mg/dL 0-200 N = CHOL) CHOLESTEROL/HDL RATIO 3.0 RATIO 0-4.9 N RISK A SSOCIATED WITH (test code = CHOLHDL) CHOL/H DL RATIOS: Risk M mary Female1/[address] A[address] RAGE 3.43 3.27AVERAGE 4.97 4.4 [address]X AVER[address] RAGE 23.39 11.04 REFERENCE VALUE IS RELATED TO RISK LEVELS ASRECOMMENDED B Y THE JEREMIAS. HEART, MEGHA G, AND BLOOD INST. HDL CHOLESTEROL (test 49 mg/dL 40-60 N code = HDL) LIPOPROTEIN LDL (test 123 mg/dL 100-129 N RN LUISITO BARCENAS, CONTACT code = LDL) PHYSICIAN IMMED IATELY IF THIS IS A ST ROKE, AMI OR CAROTID STENOSIS PATIEN T WHEN THE LDL >100 ([address] OCCURENCE, THIS ADMISSION)===== ======= ======= ======= ===Reference In terval: mg/dL mmol/L-------- ------- ------- ------- Optimal <100 <2.6Near/above optimal 100-12 9 2.6-3.3Borderl ine High 130-159 3.4-4.1High 160 -189 4.1-4.9Very High >=190 >=4.9========= This LDL result is a direct measurement.=== ====== HEPATIC FUNCTION [id number] 18:08:00 Test Item Value Reference Range Interpretation Comments TOTAL PROTEIN (test 7.3 gram/dL 6.4-8.2 N code = PROT) ALBUMIN (test code = 3.5 g/dL 3.4-5.0 N ALB) GLOBULIN (test code = 3.8 gram/dL 2.7-4.2 N GLOB) ALBUMIN/GLOBULIN RATIO 0.9 0.75-1.50 N (test code = A/G) BILIRUBIN TOTAL (test 0.30 mg/dL 0.0-1.0 N code = BILT) BILIRUBIN DIRECT (test < 0.10 mg/dL 0.0-0.20 N code = BILD) SGOT/AST (test code = 71 IUnit/L 15-37 H AST) SGPT/ALT (test code = 31 IUnit/L 12-78 N ALT) ALKALINE PHOSPHATASE 137 IUnit/L 45-117 H Note change in TOTAL (test code = reference range due ALKP) to change in reagent. HCG SERUM [id number] 18:08:00 Test Item Value Reference Range Interpretation Comments HCG SERUM QUAL (test NEGATIVE NEGATIVE This HC GQL test is NOT code = HCGQL) applicable for MALE patients.Check with nurse about probable order error.If Tumor Marker Test needed, nu rse should order test "HCG TU"(Test #550.06322)---- - VITAMIN [id number] 18:08:00 Test Item Value Reference Range Interpretation Comments VITAMIN B12 (test code = VITB12) 5118 pg/mL 193-986 H FOLIC [id number] 18:08:00 Test Item Value Reference Range Interpretation Comments FOLIC ACID (test code = FOL) 39.2 ng/mL 3.10-17.50 H THYROID PROFILE [id number] 18:08:00 Test Item Value Reference Range Interpretation Comments T3 UPTAKE (test code = 30.0 % 30.0-40.0 N T3UP) T4 (THYROXINE) (test 7.4 ug/dL 4.5-13.9 N code = T4) T7 (FREE THYROXINE 2.22 FTI 1.3-5.1 N INDEX) (test code = T7) THYROID STIMULATING 4.341 uIU/mL 0.36-3.74 H TSH REFE RENCE HORMONE (test code = RANGES: EUTHYROID: TSH) 0.35 - 4.3 mIU/mL HYPO : > 5.5 mIU/mL HYPER : < 0.35 mIU/mL VIT B1 WHOLE [id number] 18:08:00 Test Item Value Reference Range Interpretation Comments VIT B1 WHOLE BLOOD 184.0 nmol/L 66.5-200.0 Performed At: BN (test code = [facility] Rian uea0948 HDWM1RL) [facility] [place], [place] [id number] nataliia Scott MD Ph:[phone] GASTRIC,[id number] 15:31:00 Test Item Value Reference Range Interpretation Comments GASTRIC,BIOPSY (test code = GASTB) RUN DATE: 05/04/21 [facility] PAGE 1 RUN TIME: 1531 Specimen Inquiry RUN USER: INTERFACE PATIENT: JULIA ROSAS LOC: ELIJAH U #: [id number] AGE/SX: 46/F ROOM: RE05/03/21[facility]: Isaiah Arias MD : [birth year] BED: DIS: STATUS: HOMA HO TLOC: SPEC #: [id number] RECD: 05/03/21 STATUS: DA REDemar #: [id number] LATOYA: 05/03/21-[address]: Isaiah Arias MD ENTERED: 05/03/21 SP TYPE: GASTRIC BX OTHR DR: Mark Anthony Plaza MD ORDERED: GROSS COPIES TO: Isaiah Arias MD [address] [place] [address] [place] [id number] [facility] [address] [place] [address] PROCEDURES: GROSS (05/04/21-1329) TISSUES: GASTRIC CORPUS - BX CLINICAL HISTORY COLLECTION DATE: 05/03/21 GERD GASTRITIS, HIATAL HERNIA FINAL DIAGNOSIS Gastric, r/o H. Pylori, biopsy: REACTIVE GASTROPATHY NEGATIVE FOR INTESTINAL METAPLASIA NEGATIVE FOR HELICOBACTER ORGANISMS NEGATIVE FOR MALIGNANCY RRB/gm D 00618, 32661 CONTINUED ON NEXT PAGE RUN DATE: 05/04/21 [facility] PAGE 2 RUN TIME: 1531 Specimen Inquiry RUN USER: INTERFACE SPEC #: [id number] PATIENT: JULIA ROSAS #[id number] (Continued) MACROSCOPIC The specimen is received in formalin, labeled with the patient's name, identified as "gastric", and consists of a single hernandez biopsy measuring 0.2 cm, submitted for evaluation. GROSS PERFORMED AT [facility] [address] [place] [address] (P)[phone] MICROSCOPIC To identify Helicobacter organisms, a Giemsa stain was performed. No organisms are seen. All of the stains, including any controls performed, stain appropriately. MICROSCOPIC PERFORMED AT [facility] [address] [place] [address] (P)[phone] --- Signed SIGNATURE ON FILE Sushil Loza 05/04/21 1531 END OF REPORT AB HELICOBACTER [id number] 18:32:00 Test Item Value Reference Range Interpretation Comments AB HELICOBACTER IGG (test code = NEGATIVE NEGATIVE HELIGAB) AB HIV 1 11:05:00 Test Item Value Reference Range Interpretation Comments AB HIV 1 2 Nonreactive NonReactive It is recognize d that (test code = currently avail able [id number]) assays for thed etection of antibodies t o HIV-1 and/or HIV-2 ma y notdetect all i nfected individuals. A negative test result liz snot exclude the pos sibility of exposure to or infection withH IV. HIV antibodies may be undetectable in some stages ofthe in fection and in some cli nical conditions. PROTHROMBIN [id number] 10:21:00 Test Item Value Reference Range Interpretation Comments PROTHROMBIN TIME 11.1 seconds 9.0-14.0 N PATIENT (test code = PTP) INTERNATIONAL NORMAL 1.0 0.8-1.2 N The the rapeutic range RATIO (test code = for oral INR) anticoagulant t herapy formost indicat ions is an internati onal normalized rati o (INR)of between 2.0 and 3.0. The recommended therapeutic INR range for various cli nical situations is l isted below: Clinical Situat ion INR range Pulmonary embol ism treatment (2.0-3.0)Venou s thrombosis treatmentVenous thrombosis prophylaxis (hi gh risk surgery)Prevent ion of systemic emboli sm from: A cute myocardial infa rction Valvula r heart disease Atrial fibrilla tion Mechanical pros thetic heart valves (2.5-3.5) IS PATIENT ON ANTICOAGULANTS? NTHROMBOPLASTIN TIME [id number] 10:21:00 Test Item Value Reference Range Interpretation Comments THROMBOPLASTIN TIME PARTIAL 35.3 seconds 23.0-37.0 N (test code = PTT) IS PATIENT ON ANTICOAGULANTS? NCOMPREHENSIVE METABOLIC [id number] 10:18:00 Test Item Value Reference Range Interpretation Comments SODIUM (test code = 140 mmol/L 136-145 N NA) POTASSIUM (test code 5.0 mmol/L 3.5-5.1 N = K) CHLORIDE (test code = 104.0 mmol/L 98-107 N CL) CARBON DIOXIDE (test 29.0 mmol/L 21-32 N code = CO2) ANION GAP (test code 12.0 10-20 N = GAP) GLUCOSE (test code = 95 mg/dL 74-106 N GLU) BLOOD UREA NITROGEN 20 mg/dL 7-18 H (test code = BUN) GLOMERULAR FILTRATION > 60 mL/min See_Comment Estima manan GFR by RATE (test code = using Rinku fied MDRD GFR) formula.Chronic kidney disease is defined as eith er kidney damageor GFR <60 mL/min/1.73 m2 for >3 months. [Automated mess age] The system [employer] generated this result transmit manan reference range : >=60. The refer ence range was not u sed to interpret th is result as normal/abnormal . CREATININE (test code 0.70 mg/dL 0.55-1.02 N Note change in = CREAT) reference range due to change in reagent. BUN/CREATININE RATIO 28.2 10-20 H (test code = BUN/CREA) TOTAL PROTEIN (test 6.8 gram/dL 6.4-8.2 N code = PROT) ALBUMIN (test code = 3.3 g/dL 3.4-5.0 L ALB) GLOBULIN (test code = 3.5 gram/dL 2.7-4.2 N GLOB) ALBUMIN/GLOBULIN 0.9 0.75-1.50 N RATIO (test code = A/G) CALCIUM (test code = 8.4 mg/dL 8.5-10.1 L CA) BILIRUBIN TOTAL (test 0.30 mg/dL 0.0-1.0 N code = BILT) SGOT/AST (test code = 51 IUnit/L 15-37 H AST) SGPT/ALT (test code = 34 IUnit/L 12-78 N ALT) ALKALINE PHOSPHATASE 151 IUnit/L 45-117 H Note change in TOTAL (test code = reference range due ALKP) to change in reagent. [id number] 10:01:00 Test Item Value Reference Range Interpretation Comments GLYCOSYLATED HEMOGLOBIN 5.3 % HbA1 [facility] DIAGNOSIS: (HA1C) (test code = HbA1C GLYHGB) (%) ----- ----- Diab etic >6.4Prediabetes 5.7 - 6.4Normal <5.7 ESTIMATED AVERAGE 105 MG/DL GLUCOSE (test code = EAG) CBC W/AUTO [id number] 09:58:00 Test Item Value Reference Range Interpretation Comments WHITE BLOOD CELL (test code = 8.2 K/mm3 4.5-12.5 N WBC) RED BLOOD CELL (test code = 4.17 mill/mm3 3.7-5.2 N RBC) HEMOGLOBIN (test code = HGB) 12.1 gram/dL 11.5-15.5 N HEMATOCRIT (test code = HCT) 37.4 % 36.0-46.0 N MEAN CELL VOLUME (test code = 89.7 fL 80-98 N MCV) MEAN CELL HGB (test code = MCH) 29.0 picogram 27.0-33.0 N MEAN CELL HGB CONCETRATION 32.4 gram/dL 33.0-36.0 L (test code = MCHC) RED CELL DISTRIBUTION WIDTH 12.9 % 11.6-16.2 N (test code = RDW) RED CELL DISTRIBUTION WIDTH SD 41.7 fL 37.0-51.0 N (test code = RDW-SD) PLATELET COUNT (test code = 227 K/mm3 150-450 N PLT) MEAN PLATELET VOLUME (test code 10.7 fL 6.7-11.0 N = MPV) NEUTROPHIL % (test code = NT%) 58.2 % 39.0-69.0 N IMMATURE GRANULOCYTE % (test 0.5 % 0.0-5.0 N code = IG%) LYMPHOCYTE % (test code = LY%) 31.5 % 25.0-55.0 N MONOCYTE % (test code = MO%) 6.2 % 0.0-10.0 N EOSINOPHIL % (test code = EO%) 3.5 % 0.0-5.0 N BASOPHIL % (test code = BA%) 0.1 % 0.0-1.0 N NUCLEATED RBC % (test code = 0.0 % 0-0 N NRBC%) NEUTROPHIL # (test code = NT#) 4.77 K/mm3 1.8-7.7 N IMMATURE GRANULOCYTE # (test 0.04 x10 3/uL 0-0.03 H code = IG#) LYMPHOCYTE # (test code = LY#) 2.58 K/mm3 1.0-5.0 N MONOCYTE # (test code = MO#) 0.51 K/mm3 0-0.8 N EOSINOPHIL # (test code = EO#) 0.29 K/mm3 0.0-0.5 N BASOPHIL # (test code = BA#) 0.01 K/mm3 0.0-0.2 N NUCLEATED RBC # (test code = 0.00 K/mm3 0.0-0.1 N NRBC#) MANUAL DIFF REQUIRED (test code NO = MDIFF) URINALYSIS [id number] 09:25:00 Test Item Value Reference Range Interpretation Comments UA COLOR (test code = Light-Yellow YELLOW COLU) UA APPEARANCE (test CLEAR CLEAR IS THE S AMPLE code = APPU) FROM ER OR L&D? Y IF THE ANSWER I S NO,PLEASE DOCUMENT TWO RN SIGNATURES HERE - by [email or web address] 05/03/21 0924 UA GLUCOSE DIPSTICK NEGATIVE mg/dL NEGATIVE (test code = DGLUU) UA BILIRUBIN DIPSTICK NEGATIVE mg/dL NEGATIVE (test code = BILU) UA KETONE DIPSTICK NEGATIVE mg/dL NEGATIVE (test code = KETU) UA SPECIFIC GRAVITY 1.023 1.001-1.035 (test code = SGU) UA BLOOD DIPSTICK Negative mg/dL NEGATIVE (test code = DEMETRIS) UA PH DIPSTICK (test 6.0 5.0-8.0 code = PARRISH) UA PROTEIN DIPSTICK NEGATIVE mg/dL NEGATIVE (test code = PROU) UA UROBILINIOGEN Normal mg/dL NEGATIVE DIPSTICK (test code = URO) UA NITRITE DIPSTICK NEGATIVE NEGATIVE (test code = CHRISTIANO) UA LEUKOCYTE ESTERASE NEGATIVE Shital/uL NEGATIVE W REFLEX (test code = LEUUR) UA WBC (test code = 0-5 per HPF 0-5 WBCU) UA RBC (test code = 0-2 #/HPF 0-5 RBCU) UA EPITHELIAL CELLS FEW per HPF FEW (test code = EPIU) UA MUCUS (test code = FEW #/LPF FEW MUCU) Urine Source? Clean CatchCOVID 19 Asymptomatic IH [id number] 07:56:00 Test Item Value Reference Range Interpretation Comments COVID 19 Asymptomatic IH AG (test NEGATIVE NEGATIVE code = COVNONPUIAG) POCT GRP A STREP (MOLECULAR)2021-04-09 00:06:00 Test Item Value Reference Range Interpretation Comments POCT GP A STREP (test negative Negative - code = 75047-4) Negative ANNY (test code = ANNY) accurate development and interpretation of all internal controls Lab Interpretation Normal (test code = 45043-7)
[2021-09-14] MEDS ORDERED: DIPHENHYDRAMINE 50 MG/ML VIAL ONE (01:36)
[2021-09-14] MEDS ORDERED: dexAMETHasone 10 MG/ML VIAL ONE (01:36)
[2021-09-14] MEDS ORDERED: FAMOTIDINE 20 MG TAB ONE (01:37)
--- NOTE | 2021-09-14 02:09 | ER ---
Nurse's Notes [facility] Name: Esther Zimmer Age: 46 yrs Sex: Female : 1975 Arrival Date: 09/14/2021 Time: 00:55 Bed 11 Private MD: Diagnosis: Allergic urticaria Presentation: 09/14 01:12 Chief complaint: Patient states: Reports hives that have been ongoing x 2 weeks, worse lp1 today, itching. Coronavirus screen: At this time, the client does not indicate any symptoms associated with coronavirus-19. Ebola Screen: No symptoms or risks identified at this time. Onset: The symptoms/episode began/occurred 2 week(s) ago. Risk Assessment: Do you want to hurt yourself or someone else? Patient reports no desire to harm self or others. Onset of symptoms was September 14, 2021. 01:12 Method Of Arrival: Ambulatory lp1 01:12 Acuity: CARMITA 4 lp1 01:14 Anaphylaxis evaluation, no signs or symptoms of anaphylaxis were noted. lp1 01:14 Initial Sepsis Screen: Does the patient meet any 2 criteria? No. Patient's initial lp1 sepsis screen is negative. Does the patient have a suspected source of infection? No. Patient's initial sepsis screen is negative. 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 - Social history:: Smoking status: . Screenin:17 Abuse screen: Denies threats or abuse. Denies injuries from another. Nutritional lp1 screening: No deficits noted. Tuberculosis screening: No symptoms or risk factors identified. Fall Risk None identified. Assessment: 01:18 General: Appears in no apparent distress. Behavior is anxious. Pain: Denies pain. lp1 Neuro: Level of Consciousness is awake, alert, obeys commands, Oriented to person, place, time, situation. Cardiovascular: Patient's skin is warm and dry. Respiratory: Airway is patent Respiratory effort is even. GI: No signs and/or symptoms were reported involving the gastrointestinal system. : No signs and/or symptoms were reported regarding the genitourinary system. EENT: No signs and/or symptoms were reported regarding the EENT system. Derm: Rash noted that is itchy, papular, urticaria, on chest, right arm, left arm, right leg, left leg and neck. Musculoskeletal: No deficits noted. 02:25 Reassessment: Patient appears in no apparent distress at this time. Patient is alert, lp1 oriented x 3, equal unlabored respirations, skin warm/dry/pink. Patient states feeling better. Patient states symptoms have improved. Vital Signs: 01:14 BP 118 / 62; Pulse 73; Resp 18; Temp 97.7(TE); Pulse Ox 100% on R/A; Weight 144.24 kg; lp1 Height 5 ft. 6 in. (167.64 cm); Pain 0/10; 01:14 Body Mass Index 51.33 (144.24 kg, 167.64 cm) lp1 ED Course: 00:55 Patient arrived in ED. bp1 01:03 [facility] Polanco [facility]. jh7 01:03 Vamshi Cotton MD is Attending Physician. jh7 01:12 Arm band placed on. lp1 01:13 Triage completed. lp1 01:17 Patient has correct armband on for positive identification. lp1 01:18 Mireya Kong, RN is Primary Nurse. lp1 01:41 No provider procedures requiring assistance completed. Patient did not have IV access lp1 during this emergency room visit. Administered Medications: 01:35 Drug: Decadron (dexamethasone) 10 mg Route: IM; Site: right deltoid; lp1 02:24 Follow up: Response: Marked relief of symptoms lp1 01:35 Drug: Benadryl (diphenhydrAMINE) 25 mg Route: IM; Site: right deltoid; lp1 02:25 Follow up: Response: Marked relief of symptoms lp1 01:35 Drug: Pepcid (famotidine) 20 mg Route: PO; lp1 02:25 Follow up: Response: No adverse reaction lp1 Outcome: 02:09 Discharge ordered by MD. thrasher 02:25 Discharged to home ambulatory. lp1 02:25 Condition: good 02:25 Discharge instructions given to patient, Instructed on discharge instructions, follow up and referral plans. medication usage, Demonstrated understanding of instructions, follow-up care, medications, Prescriptions given X 1. 02:25 Patient left the ED. lp1 Signatures: Mireya Kong RN RN lp1 Shakira Cortes Jennifer, DATA SOLUTIONS ARCHITECT DATA SOLUTIONS ARCHITECT [email or web address] Corrections: (The following items were deleted from the chart) 01:17 01:14 Pulse 73bpm; Resp 18bpm; Pulse Ox 100% RA; Temp 97.7F Temporal; 144.24 kg; Height lp1 5 ft. 6 in.; BMI: 51.3; Pain 0/10; lp1
--- NOTE | 2021-09-14 02:09 | EDPHYS ---
Physician Documentation [facility] Name: Esther Zimmer Age: 46 yrs Sex: Female : 1975 Arrival Date: 09/14/2021 Time: 00:55 Bed 11 Private MD: ED Physician Vamshi Cotton HPI: 09/14 01:15 This 46 yrs old Female presents to ER via Ambulatory with complaints of jh7 Allergic Reaction. 01:15 Onset: The symptoms/episode began/occurred 2 week(s) ago. Patient presents to ER jh7 complaining of an allergic reaction worsening over 2 weeks. States that she has been itching all over her skin, but that today she felt like her throat might be closing.. 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 - Social history:: Smoking status: . ROS: 01:15 Constitutional: Negative for fever, chills, and weight loss, Cardiovascular: Negative [facility] for chest pain, palpitations, and edema, Respiratory: Negative for shortness of breath, cough, wheezing, and pleuritic chest pain, Abdomen/GI: Negative for abdominal pain, nausea, vomiting, diarrhea, and constipation, Back: Negative for injury and pain, Neuro: Negative for headache, weakness, numbness, tingling, and seizure. 01:15 Skin: Positive for rash. 01:15 All other systems are negative. Exam: 01:15 Constitutional: This is a well developed, well nourished patient who is awake, alert, jh7 and in no acute distress. ENT: Nares patent. No nasal discharge, no septal abnormalities noted. Tympanic membranes are normal and external auditory canals are clear. Oropharynx with no redness, swelling, or masses, exudates, or evidence of obstruction, uvula midline. Mucous membranes moist. Neck: Trachea midline, no thyromegaly or masses palpated, and no cervical lymphadenopathy. Supple, full range of motion without nuchal rigidity, or vertebral point tenderness. No Meningismus. Cardiovascular: Regular rate and rhythm with a normal S1 and S2. No gallops, murmurs, or rubs. Respiratory: Lungs have equal breath sounds bilaterally, clear to auscultation and percussion. No rales, rhonchi or wheezes noted. No increased work of breathing, no retractions or nasal flaring. Abdomen/GI: Soft, non-tender, with normal bowel sounds. No distension or tympany. No guarding or rebound. No evidence of tenderness throughout. Neuro: Awake and alert, GCS 15, oriented to person, place, time, and situation. 01:15 Skin: urticaria, Urticarial rash present on bilateral upper extremities and chest.. Vital Signs: 01:14 BP 118 / 62; Pulse 73; Resp 18; Temp 97.7(TE); Pulse Ox 100% on R/A; Weight 144.24 kg; lp1 Height 5 ft. 6 in. (167.64 cm); Pain 0/10; 01:14 Body Mass Index 51.33 (144.24 kg, 167.64 cm) lp1 MDM: 01:15 Differential diagnosis: urticaria. Data reviewed: vital signs, nurses notes. Data [facility] interpreted: Pulse oximetry: is 100 %. Interpretation: normal. Counseling: I had a detailed discussion with the patient and/or guardian regarding: the historical points, exam findings, and any diagnostic results supporting the discharge/admit diagnosis, to return to the emergency department if symptoms worsen or persist or if there are any questions or concerns that arise at home. ED course: The patient responded well to the medication therapy. She reported that her symptoms had resolved, and that she felt much better. Normal exam. She was advised to return to the ER if symptoms return, or any new concerning symptoms develop. The patient agreed with the plan of care.. 01:19 Patient medically screened. 7 Administered Medications: 01:35 Drug: Decadron (dexamethasone) 10 mg Route: IM; Site: right deltoid; lp1 02:24 Follow up: Response: Marked relief of symptoms lp1 01:35 Drug: Benadryl (diphenhydrAMINE) 25 mg Route: IM; Site: right deltoid; lp1 02:25 Follow up: Response: Marked relief of symptoms lp1 01:35 Drug: Pepcid (famotidine) 20 mg Route: PO; lp1 02:25 Follow up: Response: No adverse reaction lp1 Disposition: 04:23 Co-signature as Attending Physician, Vamshi Cotton MD. rn Disposition Summary: 09/14/21 02:09 Discharge Ordered Location: Home [facility] Problem: [facility] Symptoms: have improved [facility] Condition: Stable [facility] Diagnosis - Allergic urticaria [facility] Followup: [facility] - With: Private Physician - When: 1 - 2 days - Reason: Recheck today's complaints Discharge Instructions: - Discharge Summary Sheet [facility] - Hives [facility] - Rash, Adult [facility] Forms: - Medication Reconciliation Form [facility] - Thank You Letter [facility] Prescriptions: - Medrol (Mendel) 4 mg Oral Tablets, Dose Pack - take 1 tablet by ORAL route as directed - follow package instructions; 1 [facility] packet; Refills: 0, Product Selection Permitted Signatures: Vamshi Cotton MD MD rn KongMireya RN RN lp1 Machelle Polanco, MANAGER PHARMACEUTICAL MANAGER PHARMACEUTICAL [facility]
[2021-09-14 04:10] VITALS: BP 118/62; TEMP 97.7; O2SAT 100
== END 2021-09-14 02:25 | disposition home or self-care (01) ==
LOC: ER 00:54
DX: L50.0 Allergic urticaria (principal); F41.9 Anxiety disorder, unspecified; E03.9 Hypothyroidism, unspecified
CPT/HCPCS: 96372; 99283; J1200; J1100

== ENCOUNTER 2022-07-06 16:52 | Emergency (ER) | payer BC ==
--- OUTSIDE RECORDS SUMMARY | 2022-07-06 17:03 | XMS REPORT | Continuity of Care Document ---
:1975 Author Organization [facility] t Address [address] [facility] [place] [address] Care Team Providers Name Role Phone System, Pcp Not In Primary Care Physician Josselin Reardon Attending Clinician Unavailable YFN HAMILTON Attending Clinician Unavailable KHALIF GREEN Attending Clinician Unavailable Khalif Green MD Attending Clinician KHALIF GREEN Attending Clinician Unavailable Vanita HOPPER, Javier Castro Attending Clinician Vanessa Fuller MD Attending Clinician [phone] Angelo LUDWIG, Maria D Pulliam Attending Clinician [phone] MARIA D STEPHENS Attending Clinician Unavailjose Rios MD, Gonsalo Attending Clinician GONSALO RIOS Attending Clinician Unavailable Virtual, Surgeon Attending Clinician Unavailable Abdiel Montoya MD Attending Clinician LAB90 Attending Clinician Unavailable AMISH ESCAMILLA Attending Clinician Unavailable LUIS MIGUEL MCNEIL Attending Clinician Unavailable MD GELY Attending Clinician Unavailable MARQUES WHALEN Attending Clinician Unavailable JOMAR ACOSTA Attending Clinician Unavailable Green [employer] FURNISH[employer] SALESPERSON, Jomar Attending Clinician Marla MEN'S FURNISHINGS SALESPERSONShakira Attending Clinician Hundrigoberto MEN'S FURNISHINGS SALESPERSON-C, Yfn Attending Clinician LISBET RAWLS Attending Clinician Unavailable [id number] Attending Clinician Unavailable [id number] Attending Clinician Unavailable Sachi Hawley PA-C Attending Clinician SACHI HAWLEY Attending Clinician Unavailable EbMarlo Funes Attending Clinician MARLO VALERO Attending Clinician Unavailable Isaiah Arias Attending Clinician Unavailable LAYLA PINEDA Attending Clinician Unavailable Antonio [employer]URNISH[employer] SALESPERSON, Layla Attending Clinician SAMANTHA MURILLO Attending Clinician Unavailable Doctor Unassigned, [place] Attending Clinician Unavailable KHALIF GREEN Admitting Clinician Unavailable GONSALO RIOS Admitting Clinician Unavailable Isaiah Arias Admitting Clinician Unavailable Payers Payer Name Policy Type Policy Number Effective Date Expiration Date Rudy westalfonzo BCBS 2 [id number] 2019 00:00:00 PPO/EPO - BCBS [id number] CVCP-BCBS [id number] BCBS [facility] [id number] 2020 00:00:00 Blue Cross C1 [id number] 2020 Common Spiri t Blue Shield of 00:00:00 - [facility] Problems Condition Condition Condition Status Onset Resolution Last Treating Co mments Source Name Details Category Date Date Treatment Clinician Date Brain Brain Disease Active [facility] Preop Preop Disease Active [facility] testing testing 2-15 [facility] Meningioma Meningioma Disease Active [facility] Seizures Seizures Disease [facility] [place] Hypothyroi Hypothyroi Disease Active [facility] dism dism 2-15 [facility] Center Cerebellar Cerebellar Disease Active [facility] edema edema 2-15 [facility] 00 [facility] Post-op Post-op Disease Active [facility] pain pain [facility] 00 [place] BMI BMI Disease Active Jodie 45.0-49.9, 45.0-49.9, 7-06 Se ybold adult adult 00:00: - 00 Externa l Harry' Harry' Disease Active K elsey s s 5-12 Seybold thyroiditi thyroiditi 00:00: - s s 00 Externa l Current Current Disease Active Jodie mild mild 5-10 Seybold episode of episode of 00:00: - major major 00 Externa depressive depressive l disorder disorder Anxiety Anxiety Disease Active Jodie 5-10 Seybold 00:00: - 00 Externa l BMI BMI Disease Active Jodie 50.0-59.9, 50.0-59.9, 5-10 Se ybold adult adult 00:00: 00 Morbid Morbid Disease Active Univers obesity obesity 4-27 ity of with body with body 00:[place] mass index mass index 00 Me dical of 50 or of 50 or Branch higher higher [id number] Morbid Problem Active Commo n 9104 (severe) Spirit obesity - [facility] excess [facility] [id number] Moderate Problem Active Comm on episode of Spirit recurrent - [facility] major [facility] depressive [facility] disorder [facility] No known No known Disease [facility] active active College problems problems of Medicin e Insomnia Insomnia Problem Active 2021-04-23 Memoria due to due to 03:46:04 l other other [facility] mental mental disorder disorder Active Problem 04/23/2021 [facility] Major Major Problem Active 2021-04-23 Memor ia depressive depressive 03:46:04 l disorder, disorder, Herm inocencio single single episode, episode, severe severe Active Problem 04/23/2021 [facility] Generalize Generaliz Problem Active 2021-04-23 Memoria d anxiety ed anxiety 03:46:04 l disorder disorder Yared n Active Problem 04/23/2021 [facility] Allergies, Adverse Reactions, Alerts Allergy Allergy Status Severity Reaction(s) Onset Inactive Treating Comm ents Source Name Type Date Date Clinician No Known DA Active U 2020-05 [facility]ie 2[facility] 00:00: e 00 [facility] N.K.D.A. N.K.D.A. Active Info Not 2020-05 Amadou breana Available 2-16 l 00:00: [facility] 00 No Known DA Active U [facility] Allergie 8-03 [facility] 00:00: e 00 [facility] NO KNOWN Drug Active Univers ALLERGIE Class ity of S [facility] NO KNOWN Allergy Active [facility] Social History Social Habit Start Date Stop Date Quantity Comments Source History SDOH [facility] Alcohol Std Drinks Medica Center History SDOH [facility] Alcohol Binge Medical Cecilia [facility] History SDVA [facility] Alcohol Comment Medical C enter History SDVA [facility] Transport Non-Med Medical Center History of Tobacco Common Spirit - Use [facility] Exposure to 2022-06-13 2022-06-[address] [facility] SARS-CoV-2 (event) 00:00:00 06:59:00 Medica l Center Alcohol intake 2022-06-23 2022-06-[address] [facility] 00:[facility]:00 00:00:00 non-drinker Medical Cente r (finding) History SDOH 2022-06-23 2022-06-[address] [facility] Transport Med 00:00:00 00:00:[address] History [facility] 2022-06-23 2022-06-[address] [facility] Housing Unable to 00:00:00 00:00:00 Medical Center Pay History [facility] 2022-06-23 2022-06-[address] [facility] Housing Places 00:00:00 00:00:00 Medical Ce nter Lived History [facility] 2022-06-23 2022-06-[address] [facility] Housing Homeless 00:00:00 00:00:00 Medical Center Last Year Tobacco use and 2022-06-03 2022-06-[address] [facility] [facility] k[facility] exposure 00:00:00 00:00:00 Medical Center History [facility] 2022-06-03 2022-06-[address] [facility] Alcohol Frequency 00:00:00 00:00:00 Medical Center Sex Assigned At [address] 00:00:00 00:00:00 Medical Center Smoking Status Start Date Stop Date Source Never smoked tobacco [facility] Medications Ordered Filled Start Stop Current Ordering Indication Dosage Frequency Signature Comments Components Source Medication Medication Date Date Medication? Clinician (SIG) Name Name levothyroxi Yes 75ug Take 1 Bayl or ne 2-24 Tablet by Ringo (SYNTHROID) 11:42: mouth of 75 MCG 36 daily. Medicin tablet e ARIPiprazol Yes 10mg QD Take [address] e (ABILIFY) 2-19 by mouth Luke s 10 MG 18:13: daily. Medical disintegrat 03 Center ing tablet ARIPiprazol Yes 10mg QD Take [address] e (ABILIFY) 2-19 by mouth Luke s 10 MG 18:13: daily. Medical disintegrat 03 Center ing tablet ARIPiprazol Yes 10mg QD Take [address] e (ABILIFY) 2-19 by mouth Luke s 10 MG 18:13: daily. Medical disintegrat 03 Center ing tablet levothyroxi Yes 75ug Take [address] ne 2-18 mcg by [facility] (SYNTHROID, 18:14: mouth Medic al LEVOTHROID) 04 Every Center 75 MCG morning on tablet an empty stomach. buPROPion 2023-0 Yes QD Take by [facility] t (WELLBUTRIN 2-18 mouth [facility]ukes XL) 150 MG 18:14: daily Medica l 24 hr 04 Takes 3 Center tablet tabs . modafiniL 2023-0 Yes 100mg QD Take [address] (PROVIGIL) 2-18 mg by [facility] 100 MG 18:14: mouth Medical tablet 04 daily. Alpine semaglutide 2022-0 Yes weight loss Q7D Inject [facility] (Ozempic) 1 2-18 management subcutaneo [facility]ukes mg/dose (2 18:14: for obese usly once Medical mg/1.5 mL) 04 patient a week Cent er PnIj (bmi >= 30) Every Tuesdays. levothyroxi 3-0 Yes 75ug Take [address] ne 2-18 mcg by [facility] (SYNTHROID, 18:14: mouth Medic al LEVOTHROID) 04 Every Center 75 MCG morning on tablet an empty stomach. buPROPion 3-0 Yes QD Take by [facility]I [facility] t (WELLBUTRIN 2-18 mouth [facility]ukes XL) 150 MG 18:14: daily Medica l 24 hr 04 Takes 3 Center tablet tabs . modafiniL 3-0 Yes 100mg QD Take [address] (PROVIGIL) 2-18 mg by [facility] 100 MG 18:14: mouth Medical tablet 04 daily. Alpine semaglutide 2022-0 Yes weight loss Q7D Inject [facility] (Ozempic) 1 2-18 management subcutaneo [facility]ukes mg/dose (2 18:14: for obese usly once Medical mg/1.5 mL) 04 patient a week Cent er PnIj (bmi >= 30) Every Tuesdays. levothyroxi 2023-0 Yes 75ug Take [address] ne 2-18 mcg by [facility]ukes (SYNTHROID, 18:14: mouth Medic al LEVOTHROID) 04 Every Center 75 MCG morning on tablet an empty stomach. buPROPion 2023-0 Yes QD Take by [facility] (WELLBUTRIN 2-18 mouth [facility]ukes XL) 150 MG 18:14: daily Medica l 24 hr 04 Takes 3 Center tablet tabs . modafiniL 2023-0 Yes 100mg QD Take [address] (PROVIGIL) 2-18 mg by [facility] 100 MG 18:14: mouth Medical tablet 04 daily. [place] semaglutide Yes weight loss Q7D Inject [facility] (Ozempic) 1 2-18 management subcutaneo [facility]ukes mg/dose (2 18:14: for obese usly once Medical mg/1.5 mL) 04 patient a week Cent er PnIj (bmi >= 30) Every Tuesdays. famotidine 0 Yes 20mg Take 1 [facility] (PEPCID) 20 2-18 tablet (20 Jamila kes MG tablet 00:00: mg total) Med ical 00 by mouth Center every 12 (twelve) hours. famotidine 2022-0 Yes 20mg Take 1 [facility] (PEPCID) 20 2-18 tablet (20 Jamila kes MG tablet 00:00: mg total) Med ical 00 by mouth Center every 12 (twelve) hours. famotidine 0 Yes 20mg Take 1 [facility] (PEPCID) 20 2-18 tablet (20 Jamila kes MG tablet 00:00: mg total) Med ical 00 by mouth Center every 12 (twelve) hours. levETIRAcet 2023- Yes 1000mg Q.5D Take [address] (KEPPRA) 2-18 02-18 tablet [facility] 1000 MG 00:00: 23:59 (1,000 mg Medi maggy tablet 00 :00 total) by Center mouth 2 (two) times daily. senna-docus 2023- Yes 1{tbl} Q.5D Take [address] ate -18 -18 tablet by [facility] (SENOKOT S) 00:00: 23:59 mouth 2 Me dical 8.6-50 mg 00 :00 (two) Center per tablet times daily. levETIRAcet 2023- Yes 1000mg Q.5D Take [address] am (KEPPRA) 2-18 02-18 tablet [facility] 1000 MG 00:00: 23:59 (1,000 mg Medi maggy tablet 00 :00 total) by Center mouth 2 (two) times daily. senna-docus 2023- Yes 1{tbl} Q.5D Take [address] ate 2-18 02-18 tablet by [facility] (SENOKOT S) 00:00: 23:59 mouth 2 Me dical 8.6-50 mg 00 :00 (two) Center per tablet times daily. levETIRAcet 2023- Yes 1000mg Q.5D Take [address] am (KEPPRA) 06-25 tablet [facility] 1000 MG 00:00: 23:59 (1,000 mg Medi maggy tablet 00 :00 total) by Center mouth 2 (two) times daily. senna-docus 2023- Yes 1{tbl} Q.5D Take [address] ate 06-25 tablet by [facility] (SENOKOT S) 00:00: 23:59 mouth 2 Me dical 8.6-50 mg 00 :00 (two) Center per tablet times daily. HYDROcodone 2022- No 1{tbl} Take [address] -acetaminop -07-05 tablet by Jamila kraft (NORCO 00:00: 23:59 mouth Medic al 10-325) 00 :00 every 6 Center 10-325 mg (six) per tablet hours as needed for Pain for up to 10 days. Max Daily Amount: 4 tablets HYDROcodone 2022- Yes 1{tbl} Take [address] -acetaminop -25 06- tablet by Jamila kraft (NORCO 00:00: 23:59 mouth Medic al 10-325) 00 :00 every 6 Center 10-325 mg (six) per tablet hours as needed for Pain for up to 10 days. Max Daily Amount: 4 tablets HYDROcodone 2022- Yes 1{tbl} Take [address] -acetaminop -18 07-05 tablet by Jamila kraft (NORCO 00:00: 23:59 mouth Medic al 10-325) 00 :00 every 6 Center 10-325 mg (six) per tablet hours as needed for Pain for up to 10 days. Max Daily Amount: 4 tablets dexAMETHaso 2022- No Take [address] [facility] [address] ne -25 06-25 tablets (6 [facility] (DECADRON) 00:00: 23:59 mg total) M edical 2 MG tablet 00 :00 by mouth 2 Ce nter (two) times daily with breakfast and dinner for 2 days, THEN 2 tablets (4 mg total) 2 (two) times daily with breakfast and dinner for 2 days, THEN 1 tablet (2 mg total) 2 (two) times daily with breakfast and dinner for 2 days, THEN 0.5 tablets (1 mg total) 2 (two) times daily with breakfast and dinner for 1 day. dexAMETHaso 2022- Yes Take [address] ne 2-18 02-25 tablets (6 [facility] (DECADRON) 00:00: 23:59 mg total) M edical 2 MG tablet 00 :00 by mouth 2 Ce nter (two) times daily with breakfast and dinner for 2 days, THEN 2 tablets (4 mg total) 2 (two) times daily with breakfast and dinner for 2 days, THEN 1 tablet (2 mg total) 2 (two) times daily with breakfast and dinner for 2 days, THEN 0.5 tablets (1 mg total) 2 (two) times daily with breakfast and dinner for 1 day. dexAMETHaso 2022- Yes Take [address] ne 2-18 02-25 tablets (6 [facility] (DECADRON) 00:00: 23:59 mg total) M edical 2 MG tablet 00 :00 by mouth 2 Ce nter (two) times daily with breakfast and dinner for 2 days, THEN 2 tablets (4 mg total) 2 (two) times daily with breakfast and dinner for 2 days, THEN 1 tablet (2 mg total) 2 (two) times daily with breakfast and dinner for 2 days, THEN 0.5 tablets (1 mg total) 2 (two) times daily with breakfast and dinner for 1 day. semaglutide Yes weight loss Q7D Inject [facility] (Ozempic) 1 2-14 management subcutaneo [facility]ukes mg/dose (2 09:47: for obese usly once Medical mg/1.5 mL) 31 patient a week Cent er PnIj (bmi >= 30) Every Tuesdays. levothyroxi Yes 75ug Take [address] ne 2-14 mcg by [facility]ukes (SYNTHROID, 09:45: mouth Medic al LEVOTHROID) 07 Every Center 75 MCG morning on tablet an empty stomach. buPROPion Yes QD Take by [facility] (WELLBUTRIN 2-14 mouth [facility]ukes XL) 150 MG 09:45: daily Medica l 24 hr 07 Takes 3 Center tablet tabs . modafiniL 2022-0 Yes 100mg QD Take [address] (PROVIGIL) 2-14 mg by [facility]ukes 100 MG 09:45: mouth Medical tablet 07 daily. Center levothyroxi 2022-0 Yes 75ug Take [address] ne 1-31 mcg by Lukes (SYNTHROID, 16:04: mouth Medic al LEVOTHROID) 16 Every Center 75 MCG morning on tablet an empty stomach. buPROPion 2022-0 Yes QD Take by [facility] (WELLBUTRIN 1-31 mouth [facility]ukes XL) 150 MG 16:04: daily Medica l 24 hr 16 Takes 3 Center tablet tabs . modafiniL 2022-0 Yes 100mg QD Take [address] (PROVIGIL) 1-31 mg by [facility]ukes 100 MG 16:04: mouth Medical tablet 16 daily. Alpine semaglutide 0 Yes weight loss Q7D Inject [facility] (Ozempic) 05 08- management subcutaneo [facility]ukes mg/dose (2 16:04: for obese usly once Medical mg/1.5 mL) 16 patient a week Cent er PnIj (bmi >= 30) Every Tuesdays. levothyroxi 0 Yes 75ug Take [address] ne 1-31 mcg by Lukes (SYNTHROID, 16:04: mouth Medic al LEVOTHROID) 16 Every Center 75 MCG morning on tablet an empty stomach. buPROPion 2022-0 Yes QD Take by [facility] (WELLBUTRIN 1-31 mouth [facility]ukes XL) 150 MG 16:04: daily Medica l 24 hr 16 Takes 3 Center tablet tabs . modafiniL 2022-0 Yes 100mg QD Take [address] (PROVIGIL) 1-31 mg by [facility]ukes 100 MG 16:04: mouth Medical tablet 16 daily. Center semaglutide 0 Yes weight loss Q7D Inject [facility] (Ozempic) 1 -31 management subcutaneo [facility]ukes mg/dose (2 16:04: for obese usly once Medical mg/1.5 mL) 16 patient a week Cent er PnIj (bmi >= 30) Every Tuesdays. levothyroxi 2021-05 Yes 75ug Take 75 [place] ne 2-21 mcg by Ringo (SYNTHROID) 12:45: mouth of 75 MCG 12 daily. Medicin tablet e modafinil 2021-05 Yes 100mg Take 100 [place] (PROVIGIL) 2-16 mg by Ringo 100 MG 00:00: mouth of tablet 00 daily. Medicin e modafinil 2021-05 Yes 100mg Take 1 [facility] (PROVIGIL) 2-16 Tablet by [facility] eg 100 MG 00:00: mouth of tablet 00 daily. Medicin e Modafinil 2021-05 Yes [id number] 100mg Take 1 Jodie 100 MG oral 2-16 0 tablet Seybol d Tablet 00:00: (100 mg - 00 total) by Externa mouth l daily Semaglutide 2021-05 Yes [id number] 2mg Inject 2 Jodie , 2 2-16 mg into Seybold MG/DOSE, 00:00: the skin - (Ozempic, 2 00 once a Cook Helper a MG/DOSE,) week l subcutane s OZEMPIC 2 2021-05 Yes 2mg Inject 2 Bayl or mg/dose 2-15 mg into College injection 00:00: the skin of 00 every 7 Medicin days. e OZEMPIC 2 2021-05 Yes 2mg Inject 2 Bayl or mg/dose 2-15 mg into College injection 00:00: the skin of 00 every 7 Medicin days. e Semaglutide 2021-05- No [id number] 2mg Inject 2 Jodie , 2 2-14 12-16 mg into Seybold MG/DOSE, 00:00: 00:00 the skin - (Ozempic, 2 00 :00 once a Cook Helper a MG/DOSE,) week l subcutane s zolpidem 2021-05 Yes 12.5mg Take 12.5 Ba ylor (AMBIEN CR) 2-01 mg by Ringo 12.5 MG CR 00:00: mouth of tablet 00 nightly as Medicin needed. e zolpidem 2021-05 Yes 12.5mg Take 1 [facility] (AMBIEN CR) 2-[address] [facility] leg 12.5 MG CR 00:00: mouth of tablet 00 nightly as Medicin needed. e celecoxib 2021-05 Yes 200mg Take 200 [place] (CELEBREX) 1-16 mg by College 200 MG 00:00: mouth of capsule 00 daily. Medicin e celecoxib 2021-05 Yes 200mg Take 1 [facility] (CELEBREX) 1-16 capsule by Col lege 200 MG 00:00: mouth of capsule 00 daily. Medicin e Bupropion 2021-05 Yes [id number] 450mg Take 3 K elsey HCL XL 150 1-15 tablets Seybol d MG OR TB24 00:00: (450 mg - 00 total) by Externa mouth l every morning Celecoxib 2021-05 Yes [id number] 200mg Take 1 Jodie (CeleBREX) 1-15 capsule Seybol d 200 MG oral 00:00: (200 mg - Capsule 00 total) by Externa mouth 2 l times daily Semaglutide 2021-05 Yes [id number] 2mg Inject 2 Jodie , 2 1-15 mg into Seybold MG/DOSE, 00:00: the skin - (Ozempic, 2 00 once a Cook Helper a MG/DOSE,) week l subcutaneou s Phentermine 2021-05 Yes [id number] 37.5mg Take 1 Jodie HCl 37.5 MG 1-15 tablet Seybol d oral Tablet 00:00: (37.5 mg - 00 total) by Externa mouth l every morning (before breakfast) Bupropion 2021-05 Yes [id number] 450mg Take 3 K elsey HCL XL 150 1-15 tablets Seybol d MG OR TB24 00:00: (450 mg - 00 total) by Externa mouth l every morning Celecoxib 2021-05 Yes [id number] 200mg Take 1 Jodie (CeleBREX) 1-15 capsule Seybol d 200 MG oral 00:00: (200 mg - Capsule 00 total) by Externa mouth 2 l times daily Phentermine 2021-05 Yes [id number] 37.5mg Take 1 Jodie HCl 37.5 MG 1-15 tablet Seybol d oral Tablet 00:00: (37.5 mg - 00 total) by Externa mouth l every morning (before breakfast) phentermine 2021-05 Yes 37.5mg Take 37.5 Peterson (ADIPEX-P) 1-15 mg by Ringo 37.5 MG 00:00: mouth of tablet 00 every Medicin morning e (before breakfast) . phentermine 2021-05 Yes 37.5mg Take 1 Ba ylor (ADIPEX-P) 1-15 Tablet by Tato ege 37.5 MG 00:00: mouth of tablet 00 every Medicin morning e (before breakfast) . OZEMPIC (2021-05- No [id number] 1mg Inject 1 Jodie mg/dose) 4 1-14 11-15 mg into Seybo ld mg/3 mL SQ 00:00: 00:00 the skin - Solution 00 :00 once a Externa Pen-Injecto week l r Desvenlafax 2021-05 Yes 1{tbl} Take 1 Ba ylor ine 1-08 Tablet by [employer] Succinate 00:00: mouth of 100 MG TB24 00 daily. Medici n e aripiprazol 2021-05 Yes 10mg Take 1 Bayl or e (ABILIFY) 1-08 Tablet by Col lege 10 MG 00:00: mouth of tablet 00 daily. Medicin e Desvenlafax 2021-05 Yes 1{tbl} Take 1 Ba ylor ine 1-08 Tablet by Ringo Succinate 00:00: mouth of 100 MG TB24 00 daily. Medici n e Aripiprazol 2021-05 Yes 1{tbl} Take 1 Ke lsey e 10 MG 1-08 tablet by Seybold oral Tablet 00:00: mouth - 00 daily Externa l Desvenlafax 2021-05 Yes Take by Celestino sey ine 1-08 mouth Seybold Succinate 00:00: daily - 100 MG oral 00 Externa TABLET SR l 24 HR Aripiprazol 2021-05 Yes 1{tbl} Take 1 Ke lsey e 10 MG 1-08 tablet by Seybold oral Tablet 00:00: mouth - 00 daily Externa l Desvenlafax 2021-05 Yes Take by Celestino sey ine 1-08 mouth Seybold Succinate 00:00: daily - 100 MG oral 00 Externa TABLET SR l 24 HR aripiprazol 2021-05 Yes 10mg Take 10 mg [facility] e (ABILIFY) 1-08 by mouth Tato ege 10 MG 00:00: daily. of tablet 00 Medicin e buPROPion 2021-05 Yes 300mg Take 300 [place] (WELLBUTRIN 1-07 mg by Ringo ) 150 MG XL 00:00: mouth of tablet 00 every Medicin morning. e clonazepam 2021-05 Yes .5mg Take 0.5 [place] (KLONOPIN) 1-07 mg by Ringo 0.5 MG 00:00: mouth 2 of tablet 00 times Medicin daily as e needed. buPROPion 2021-05 Yes 300mg Take 2 [facility] (WELLBUTRIN 1-07 Tablets by Co barber ) 150 MG XL 00:00: mouth of tablet 00 every Medicin morning. e clonazepam 2021-05 Yes .5mg Take 1 [facility] (KLONOPIN) 1-07 Tablet by Tato federico 0.5 MG 00:00: mouth 2 of tablet 00 times Medicin daily as e needed. Phentermine 2021-05- No [id number] 37.5mg Take 1 Jodie HCl 37.5 MG 0-10 11-15 tablet Seybo ld oral Tablet 00:00: 00:00 (37.5 mg - 00 :00 total) by Externa mouth l every morning (before breakfast) methylPREDN 2021- No [id number] 1{renate} Take 1 renate Jodie ISolone 4 9- 11-15 by mouth Seybo ld MG oral 00:00: 00:00 See Admin - Tablet 00 :00 Instructio Externa Therapy ns Use as l Pack directed nirmatrelvi Yes [id number] 3{tbl} Take 3 Univers r-ritonavir 9-11 tablets by it y of (PAXLOVID, 00:00: mouth in [place] as EUA,) 300 00 the Medical mg (150 mg morning Branch x 2)-100 mg and 3 tablet tablets in the evening. codeine-gua 2021- No [id number] 5mL Take 5 mL Univers ifenesin 9-11 -19 by mouth ity of 10-100 mg/5 00:00: 04:59 every 6 [place] mL oral 00 :00 (six) Medical solution hours as Branch needed for Cough for up to 7 days. Indication s: acute pain Clonazepam Yes TAKE Jodie 0.5 MG oral 8-22 ONE-HALF Seyb old Tablet 00:00: (05/09) - 00 TABLET(S) Externa BY MOUTH l TWICE A DAY NEEDED. Zolpidem Yes 12.5mg Take 12.5 Ke lsey Tartrate 8-22 mg by Seybold 12.5 MG 00:00: mouth at - oral Tab CR 00 bedtime as Ex terna needed l Clonazepam Yes TAKE Jodie 0.5 MG oral 8-22 ONE-HALF Seyb old Tablet 00:00: (1/2) - 00 TABLET(S) Externa BY MOUTH l TWICE A DAY NEEDED. Zolpidem Yes 12.5mg Take 12.5 Ke lsey Tartrate 8-22 mg by Seybold 12.5 MG 00:00: mouth at - oral Tab CR 00 bedtime as Ex terna needed l Celecoxib 2021- No [id number] 200mg Take 1 Jodie (CeleBREX) 8-03 11-15 capsule Seybo ld 200 MG oral 00:00: 00:00 (200 mg - Capsule 00 :00 total) by Externa mouth 2 l times daily Phentermine Yes [id number] 37.5mg Take 1 Jodie HCl 37.5 MG 6-07 tablet Seybol d oral Tablet 00:00: (37.5 mg 00 total) by mouth every morning (before breakfast) Liothyronin Yes TAKE ONE Ke lsey e Sodium 5 5-28 (1) Seybold MCG oral 00:00: TABLET(S) Tablet 00 BY MOUTH ONCE A DAY ON AN EMPTY STOMACH. Liothyronin 2021- No TAKE ONE K elsey e Sodium 5 5-28 11-15 (1) Seybold MCG oral 00:00: 00:00 TABLET(S) - Tablet 00 :00 BY MOUTH Externa ONCE A DAY l ON AN EMPTY STOMACH. Phentermine Yes [id number] 37.5mg Take 1 Jodie HCl 37.5 MG 5-12 tablet Seybol d oral Tablet 00:00: (37.5 mg 00 total) by mouth every morning (before breakfast) Pt to start with 1/4 tab daily Phentermine 2021- No [id number] 37.5mg Take 1 Jodie HCl 37.5 MG 5-12 06-07 tablet Seybo ld oral Tablet 00:00: 00:00 (37.5 mg 00 :00 total) by mouth every morning (before breakfast) Pt to start with 1/4 tab daily Phentermine 2021-0 2- No [id number] 37.5mg Take 1 Jodie HCl 37.5 MG 5-12 05-12 capsule Seyb old oral 00:00: 00:00 (37.5 mg Capsule 00 :00 total) by mouth every morning Cholecalcif 2021-0 2- No 1{tbl} 1 tablet Jodie george 25 MCG 5-10 05-10 every 24 Sey bold (1000 UT) 09:14: 00:00 hours oral Tablet 17 :00 hydrOXYzine 2021-0 Yes [id number] 10mg [id number] Take 1 Jodie HCl 10 MG 5-10 [id number] tablet (10 Seybold oral Tablet 00:00: 3D mg total) 00 by mouth 3 times daily as needed for itching or anxiety methylPREDN 2021-0 Yes TAKE BY Celestino danielle ISolone 4 5-10 MOUTH Seybold MG oral 00:00: ACCORDING Tablet 00 TO PACKAGE Therapy INSTRUCTIO Pack NS. hydrOXYzine 2021-0 Yes [id number] 10mg Q.[id number] Take 1 Jodie HCl 10 MG 5-10 [id number] tablet (10 Seybold oral Tablet 00:00: 3D mg total) - 00 by mouth 3 Externa times l daily as needed for itching or anxiety hydrOXYzine 2021-0 Yes [id number] 10mg Q.[id number] Take 1 Jodie HCl 10 MG 5-10 [id number] tablet (10 Seybold oral Tablet 00:00: 3D mg total) - 00 by mouth 3 Externa times l daily as needed for itching or anxiety hydrOXYzine 2021-0 Yes [id number] 10mg Q.[id number] Take 1 Jodie HCl 10 MG 5-10 [id number] tablet (10 Seybold oral Tablet 00:00: 3D mg total) 00 by mouth 3 times daily as needed for itching or anxiety hydrOXYzine 2021-0 Yes [id number] 10mg [id number] Take 1 Jodie HCl 10 MG 5-10 [id number] tablet (10 Seybold oral Tablet 00:00: 3D mg total) 00 by mouth 3 times daily as needed for itching or anxiety methylPREDN Yes TAKE BY Celestino bautista ISolone 4 5-10 MOUTH Seybold MG oral 00:00: ACCORDING Tablet 00 TO PACKAGE Therapy INSTRUCTIO Pack NS. Zolpidem 2021- No Jodie Tartrate 10 5-09 05-10 Seybold MG oral 00:00: 00:00 Tablet 00 :00 Propranolol Yes TAKE ONE Ke lsey HCl 10 MG 5-05 (1) Seybold oral Tablet 00:00: TABLET(S) - 00 BY MOUTH Externa TWICE A l DAY (SECOND DOSE AT NOON). Propranolol Yes TAKE ONE Ke lsey HCl 10 MG 5-05 (1) Seybold oral Tablet 00:00: TABLET(S) - 00 BY MOUTH Externa TWICE A l DAY (SECOND DOSE AT NOON). Propranolol Yes TAKE ONE Ke lsey HCl 10 MG 5-05 (1) Seybold oral Tablet 00:00: TABLET(S) 00 BY MOUTH TWICE A DAY (SECOND DOSE AT NOON). Propranolol Yes TAKE ONE Ke lsey HCl 10 MG 5-05 (1) Seybold oral Tablet 00:00: TABLET(S) 00 BY MOUTH TWICE A DAY (SECOND DOSE AT NOON). Propranolol Yes TAKE ONE Ke lsey HCl 10 MG 5-05 (1) Seybold oral Tablet 00:00: TABLET(S) 00 BY MOUTH TWICE A DAY (SECOND DOSE AT NOON). Bilateral 2021- No [id number] 80mg Ke jennifer Injection: 4-25 04-25 Seybold Methylpredn 17:00: 17:48 isolone 00 :00 Acetate (Depo-Medro l) 40 mg/ml, 80mg - Physician Administere d (J1030) Bilateral 2021- No [id number] 80mg 80 mg, Jodie Injection: 4-25 04-25 Physician Danielle bold Methylpredn 17:00: 17:48 Administer isolone 00 :00 ed, ONCE, Acetate 1 dose, On (Depo-Medro Mon l) 40 08/30/21 at mg/ml, 80mg 1200 - Physician Administere d (J1030) Cholecalcif Yes 1{tbl} 1 tablet Jodie george 25 MCG 4-25 every 24 Seyb old (1000 UT) 11:41: hours oral Tablet 25 diphenhydrA 2021-0 2- No [id number] 25mg [facility] 08-30- ity of (BENADRYL) 02:45: 01:40 [place] 12.5 mg/5 00 :24 Medical mL solution Branch 25 mg diphenhydrA 2021-2021- No [id number] 50mg [facility] 08-30 ity of (BENADRYL) 02:45: 01:41 [place] injection 00 :00 Medical 50 mg Branch diphenhydrA 2021-0 2021- No [id number] 50mg 50 mg, [facility] 08-30 Intramuscu ity of (BENADRYL) 02:45: 01:41 lar, ONCE, [place] injection 00 :00 1 dose, On Medi maggy 50 mg Sun Branch 08/29/21 at 2145, Routine Permethrin 0 Yes APPLY TO Celestino sey 5 % apply 4-25 AFFECTED Seybol d externally 00:00: AREAS Cream 00 (FROM NECK DOWN) ONCE NOW FOR 1 DOSE. REPEAT IN 1 WEEK. Permethrin 2021-0 Yes APPLY TO Celestino sey 5 % apply 4-25 AFFECTED Seybol d externally 00:00: AREAS Cream 00 (FROM NECK DOWN) ONCE NOW FOR 1 DOSE. REPEAT IN 1 WEEK. Permethrin 2021-0 Yes APPLY TO Celestino sey 5 % apply 4-25 AFFECTED Seybol d externally 00:00: AREAS Cream 00 (FROM NECK DOWN) ONCE NOW FOR 1 DOSE. REPEAT IN 1 WEEK. hydrOXYzine 2021-0 Yes [id number] 25mg Take 1 [facility] 25 mg 4-24 tablet by ity of tablet 00:00: mouth [place] 00 every 6 Medical (six) Branch hours. hydrocortis 2022-0 Yes [id number] Apply to Univers one 1 % 4-24 area(s) ity of cream 00:00: daily. [place] 00 Medical Branch hydrOXYzine 2022-0 Yes [id number] 25mg Take 1 [facility] 25 mg 4-24 tablet by ity of tablet 00:00: mouth [place] 00 every 6 Medical (six) Branch hours. hydrocortis 2022-0 Yes [id number] Apply to Univers one 1 % 4-24 area(s) ity of cream 00:00: daily. [address] Branch Hydrocortis 2021-0 Yes Apply Kelse y one 1 % 4-24 topically Seybold apply 00:00: daily - externally 00 Externa Cream l Hydrocortis 2021-0 Yes Apply Kelse y one 1 % 4-24 topically Seybold apply 00:00: daily externally 00 Cream hydrOXYzine 2-0 Yes 25mg Take 25 mg Jodie HCl 25 MG 4-24 by mouth Seybol d oral Tablet 00:00: every 6 00 (six) hours Hydrocortis 2021-0 Yes Apply Kelse y one 1 % 4-24 topically Seybold apply 00:00: daily - externally 00 Externa Cream l Hydrocortis 2021-0 Yes Apply Kelse y one 1 % 4-24 topically Seybold apply 00:00: daily externally 00 Cream Hydrocortis 2-0 Yes Apply Kelse y one 1 % 4-24 topically Seybold apply 00:00: daily externally 00 Cream Hydrocortis 2-0 Yes Apply Kelse y one 1 % 4-24 topically Seybold apply 00:00: daily externally 00 Cream hydrOXYzine 2-0 2022- No 25mg Take 25 mg Jodie HCl 25 MG 4-24 05-10 by mouth Seybo ld oral Tablet 00:00: 00:00 every 6 00 :00 (six) hours permethrin 2-0 2022- No [id number] Apply to Univers 5 % cream 4-24 04-25 area(s) ity of 00:00: 04:59 once now [place] 00 :00 for 1 Medical dose. Branch Apply to neck down, and reapply in 1 week. SERTraline 2-0 Yes 100mg Take 100 Un ariel 100 mg 4-23 mg by ity of tablet 00:00: mouth. [address] Branch Sertraline 2-0 Yes 100mg Take 100 Ke lsey HCl 100 MG 4-23 mg by Seybold oral Tablet 00:00: mouth 00 daily Sertraline 2022-0 Yes 100mg Take 100 Ke lsey HCl 100 MG 4-23 mg by Seybold oral Tablet 00:00: mouth 00 daily Sertraline 2022-0 Yes 100mg Take 100 Ke lsey HCl 100 MG 4-23 mg by Seybold oral Tablet 00:00: mouth 00 daily Sertraline 2021-0 Yes 100mg Take 100 Ke lsey HCl 100 MG 4-23 mg by Seybold oral Tablet 00:00: mouth 00 daily Sertraline 2021-0 2- No 100mg Take 100 K elsey HCl 100 MG 4-23 11-15 mg by Seybold oral Tablet 00:00: 00:00 mouth - 00 :00 daily Externa l Bupropion 0 Yes 150mg Take 150 Celestino sey HCL XL 150 4-06 mg by Seybold MG OR TB24 00:00: mouth 00 every morning Bupropion 2021-0 Yes 150mg Take 150 Celestino sey HCL XL 150 4-06 mg by Seybold MG OR TB24 00:00: mouth 00 every morning Bupropion 2021-0 Yes 150mg Take 150 Celestino sey HCL XL 150 4-06 mg by Seybold MG OR TB24 00:00: mouth 00 every morning Bupropion 2021-0 Yes 150mg Take 150 Celestino sey HCL XL 150 4-06 mg by Seybold MG OR TB24 00:00: mouth 00 every morning Bupropion 2021-0 2021- No 150mg Take 150 Ke lsey HCL XL 150 4-06 11-15 mg by Seybold MG OR TB24 00:00: 00:00 mouth - 00 :00 every Externa morning l Enoxaparin Yes INJECT ONE K elsey (LOVENOX) 3-20 (1) Seybold 40 MG/0.4ML 00:00: SYRINGE subcutaneou 00 ONCE s Solution DAILY. Hyoscyamine 0 Yes as needed K elsey Sulfate 3-20 Seybold 0.125 MG 00:00: sublingual 00 SL Tab Enoxaparin 2021-2021- No INJECT ONE Jodie (LOVENOX) 3-20 05-10 (1) Seybold 40 MG/0.4ML 00:00: 00:00 SYRINGE subcutaneou 00 :00 ONCE s Solution DAILY. Hyoscyamine 2021-0 2021- No as needed Jodie Sulfate 3-20 05-10 Seybold 0.125 MG 00:00: 00:00 sublingual 00 :00 SL Tab ibuprofen 2021-0 2022- No 800mg 800 mg, Uni vers (IBU) 2-05 07- Oral, ity of tablet 800 00:45: 23:33 ONCE, 1 [place] as mg 00 :00 dose, On Medical Sun Branch 07/04/21 at 1845, BALJINDER Vitamin D 2020-05 Yes KELIN 2 tablets Me moria 2-17 HANKS l 03:46: BusPIRone 2020-05 Yes KELIN 1 tablet Mem oria HCl 2-17 HANKS l 03:46: Levothyroxi 2020-05 Yes KELIN 1 tablet M emoria ne Sodium 2-17 HANKS in the l 03:46: morning on an empty stomach BusPIRone 2020-05 Yes KELIN 1 tablet Mem oria HCl 2-17 HANKS l 03:46: Levothyroxi 2020-05 Yes KELIN 1 tablet M emoria ne Sodium 2-17 HANKS in the l 03:46: morning on an empty stomach Zoloft 2020-05 Yes KELIN 2 tablets Memor ia 2-17 HANKS l 03:46: Vitamin D 2020-05 Yes KELIN 2 tablets Me moria 2-17 HANKS l 03:46: Zoloft 2020-05 Yes KELIN 2 tablets Memor ia 2-17 HANKS l 03:46: Vitamin D 2020-05 Yes KELIN 2 tablets Me moria 2-17 HANKS l 03:46: BusPIRone 2020-05 Yes KELIN 1 tablet Mem oria HCl 2-17 HANKS l 03:46: Levothyroxi 2020-05 Yes KELIN 1 tablet M emoria ne Sodium 2-17 HANKS in the l 03:46: morning on an empty stomach Zoloft 2020-05 Yes KELIN 2 tablets Memor ia 2-17 HANKS l 03:46: Vitamin D 2020-05 Yes KELIN 2 tablets Me moria 2-17 HANKS l 03:46: BusPIRone 2020-05 Yes KELIN 1 tablet Mem oria HCl 2-17 HANKS l 03:46: Levothyroxi 2020-05 Yes KELIN 1 tablet M emoria ne Sodium 2-17 HANKS in the l 03:46: morning on an empty stomach Zoloft 2020-05 Yes KELIN 2 tablets Memor ia 2-17 HANKS l 03:46: Vitamin D 2020-05 Yes KELIN 2 tablets Me moria 2-17 HANKS l 03:46: BusPIRone 2020-05 Yes KELIN 1 tablet Mem oria HCl 2-17 HANKS l 03:46: Levothyroxi 2020-05 Yes KELIN 1 tablet M emoria ne Sodium 2-17 HANKS in the l 03:46: morning on an empty stomach Zoloft 2020-05 Yes KELIN 2 tablets Memor ia 2-17 HANKS l 03:46: Vitamin D 2020-05 Yes KELIN 2 tablets Me moria 2-17 HANKS l 03:46: BusPIRone 2020-05 Yes KELIN 1 tablet Mem oria HCl 2-17 HANKS l 03:46: Levothyroxi 2020-05 Yes KELIN 1 tablet M emoria ne Sodium 2-17 HANKS in the l 03:46: morning on an empty stomach Zoloft 2020-05 Yes KELIN 2 tablets Memor ia 2-17 HANKS l 03:46: Vitamin D 2020-05 Yes KELIN 2 tablets Me moria 2-17 HANKS l 03:46: BusPIRone 2020-05 Yes KELIN 1 tablet Mem oria HCl 2-17 HANKS l 03:46: Levothyroxi 2020-05 Yes KELIN 1 tablet M emoria ne Sodium 2-17 HANKS in the l 03:46: morning on an empty stomach Zoloft 2020-05 Yes KELIN 2 tablets Memor ia 2-17 HANKS l 03:46: Vitamin D 2020-05 Yes KELIN 2 tablets Me moria 2-17 HANKS l 03:46: BusPIRone 2020-05 Yes KELIN 1 tablet Mem oria HCl 2-17 HANKS l 03:46: Levothyroxi 2020-05 Yes KELIN 1 tablet M emoria ne Sodium 2-17 HANKS in the l 03:46: morning on an empty stomach Zoloft 2020-05 Yes KELIN 2 tablets Memor ia 2-17 HANKS l 03:46: Vitamin D 2020-05 Yes KELIN 2 tablets Me moria 2-17 HANKS l 03:46: BusPIRone 2020-05 Yes KELIN 1 tablet Mem oria HCl 2-17 HANKS l 03:46: Levothyroxi 2020-05 Yes KELIN 1 tablet M emoria ne Sodium 2-17 HANKS in the l 03:46: morning on an empty stomach Zoloft 2020-05 Yes KELIN 2 tablets Memor ia 2-17 HANKS l 03:46: Vitamin D 2020-05 Yes KELIN 2 tablets Me moria 2-17 HANKS l 03:46: BusPIRone 2020-05 Yes KELIN 1 tablet Mem oria HCl 2-17 HANKS l 03:46: Levothyroxi 2020-05 Yes KELIN 1 tablet M emoria ne Sodium 2-17 HANKS in the l 03:46: morning on an empty stomach Zoloft 2020-05 Yes KELIN 2 tablets Memor ia 2-17 HANKS l 03:46: Vitamin D 2020-05 Yes KELIN 2 tablets Me moria 2-17 HANKS l 03:46: BusPIRone 2020-05 Yes KELIN 1 tablet Mem oria HCl 2-17 HANKS l 03:46: Levothyroxi 2020-05 Yes KELIN 1 tablet M emoria ne Sodium 2-17 HANKS in the l 03:46: morning on an empty stomach Zoloft 2020-05 Yes KELIN 2 tablets Memor ia 2-17 HANKS l 03:46: Vitamin D 2020-05 Yes KELIN 2 tablets Me moria 2-17 HANKS l 03:46: BusPIRone 2020-05 Yes KELIN 1 tablet Mem oria HCl 2-17 HANKS l 03:46: Levothyroxi 2020-05 Yes KELIN 1 tablet M emoria ne Sodium 2-17 HANKS in the l 03:46: morning on an empty stomach Zoloft 2020-05 Yes KELIN 2 tablets Memor ia 2-17 HANKS l 03:46: Vitamin D 2020-05 Yes KELIN 2 tablets Me moria 2-17 HANKS l 03:46: BusPIRone 2020-05 Yes KELIN 1 tablet Mem oria HCl 2-17 HANKS l 03:46: Levothyroxi 2020-05 Yes KELIN 1 tablet M emoria ne Sodium 2-17 HANKS in the l 03:46: morning on an empty stomach Zoloft 2020-05 Yes KELIN 2 tablets Memor ia 2-17 HANKS l 03:46: Vitamin D 2020-05 Yes KELIN 2 tablets Me moria 2-17 HANKS l 03:46: BusPIRone 2020-05 Yes KELIN 1 tablet Mem oria HCl 2-17 HANKS l 03:46: Levothyroxi 2020-05 Yes KELIN 1 tablet M emoria ne Sodium 2-17 HANKS in the l 03:46: morning on an empty stomach Zoloft 2020-05 Yes KELIN 2 tablets Memor ia 2-17 HANKS l 03:46: Vitamin D 2020-05 Yes KELIN 2 tablets Me moria 2-17 HANKS l 03:46: BusPIRone 2020-05 Yes KELIN 1 tablet Mem oria HCl 2-17 HANKS l 03:46: Levothyroxi 2020-05 Yes KELIN 1 tablet M emoria ne Sodium 2-17 HANKS in the l 03:46: morning on an empty stomach Zoloft 2020-05 Yes KELIN 2 tablets Memor ia 2-17 HANKS l 03:46: Vitamin D 2020-05 Yes KELIN 2 tablets Me moria 2-17 HANKS l 03:46: BusPIRone 2020-05 Yes KELIN 1 tablet Mem oria HCl 2-17 HANKS l 03:46: Levothyroxi 2020-05 Yes KELIN 1 tablet M emoria ne Sodium 2-17 HANKS in the l 03:46: morning on an empty stomach Zoloft 2020-05 Yes KELIN 2 tablets Memor ia 2-17 HANKS l 03:46: Vitamin D 2020-05 Yes KELIN 2 tablets Me moria 2-17 HANKS l 03:46: BusPIRone 2020-05 Yes KELIN 1 tablet Mem oria HCl 2-17 HANKS l 03:46: Levothyroxi 2020-05 Yes KELIN 1 tablet M emoria ne Sodium 2-17 HANKS in the l 03:46: morning on an empty stomach Zoloft 2020-05 Yes KELIN 2 tablets Memor ia 2-17 HANKS l 03:46: Vitamin D 2020-05 Yes KELIN 2 tablets Me moria 2-17 HANKS l 03:46: BusPIRone 2020-05 Yes KELIN 1 tablet Mem oria HCl 2-17 HANKS l 03:46: Levothyroxi 2020-05 Yes KELIN 1 tablet M emoria ne Sodium 2-17 HANKS in the l 03:46: morning on an empty stomach Zoloft 2020-05 Yes KELIN 2 tablets Memor ia 2-17 HANKS l 03:46: Vitamin D 2020-05 Yes KELIN 2 tablets Me moria 2-17 HANKS l 03:46: BusPIRone 2020-05 Yes KELIN 1 tablet Mem oria HCl 2-17 HANKS l 03:46: Levothyroxi 2020-05 Yes KELIN 1 tablet M emoria ne Sodium 2-17 HANKS in the l 03:46: morning on an empty stomach Zoloft 2020-05 Yes KELIN 2 tablets Memor ia 2-17 HANKS l 03:46: Vitamin D 2020-05 Yes KELIN 2 tablets Me moria 2-17 HANKS l 03:46: BusPIRone 2020-05 Yes KELIN 1 tablet Mem oria HCl 2-17 HANKS l 03:46: Levothyroxi 2020-05 Yes KELIN 1 tablet M emoria ne Sodium 2-17 HANKS in the l 03:46: morning on an empty stomach Zoloft 2020-05 Yes KELIN 2 tablets Memor ia 2-17 HANKS l 03:46: Vitamin D 2020-05 Yes KELIN 2 tablets Me moria 2-17 HANKS l 03:46: BusPIRone 2020-05 Yes KELIN 1 tablet Mem oria HCl 2-17 HANKS l 03:46: Levothyroxi 2020-05 Yes KELIN 1 tablet M emoria ne Sodium 2-17 HANKS in the l 03:46: morning on an empty stomach Zoloft 2020-05 Yes KELIN 2 tablets Memor ia 2-17 HANKS l 03:46: Vitamin D 2020-05 Yes KELIN 2 tablets Me moria 2-17 HANKS l 03:46: BusPIRone 2020-05 Yes KELIN 1 tablet Mem oria HCl 2-17 HANKS l 03:46: Levothyroxi 2020-05 Yes KELIN 1 tablet M emoria ne Sodium 2-17 HANKS in the l 03:46: morning on an empty stomach Zoloft 2020-05 Yes KELIN 2 tablets Memor ia 2-17 HANKS l 03:46: tiZANidine tiZANidine 2020-05- No 1{table tiZANidine HCl 4 MG HCl 4 MG 05-09 t_as_ne HCl 4 MG 00:00: 00:00 eded} 00 :00 Levothyroxi 2020-0 Yes [id number] 75ug Take 1 Jodie ne Sodium 1-13 tablet (75 Seyb old 75 MCG oral 00:00: mcg total) Tab 00 by mouth daily Levothyroxi 2019- Yes [id number] 75ug Take 1 Jodie ne Sodium 1-13 tablet (75 Seyb old 75 MCG oral 00:00: mcg total) - Tab 00 by mouth Externa daily l Levothyroxi 2020-0 Yes [id number] 75ug Take 1 Jodie ne Sodium 1-13 tablet (75 Seyb old 75 MCG oral 00:00: mcg total) - Tab 00 by mouth Externa daily l Levothyroxi 2020-0 Yes [id number] 75ug Take 1 Jodie ne Sodium 1-13 tablet (75 Seyb old 75 MCG oral 00:00: mcg total) Tab 00 by mouth daily Levothyroxi 2020-0 Yes [id number] 75ug Take 1 Jodie ne Sodium 1-13 tablet (75 Seyb old 75 MCG oral 00:00: mcg total) Tab 00 by mouth daily Levothyroxi 2020-0 Yes [id number] 75ug Take 1 Jodie ne Sodium 1-13 tablet (75 Seyb old 75 MCG oral 00:00: mcg total) Tab 00 by mouth daily ondansetron 2018- Yes [id number] 8mg Take 1 Univers (ZOFRAN) 8 9-22 tablet by ity of mg tablet 00:00: mouth [place] 00 every 8 Medical (eight) Branch hours as needed for Nausea and Vomiting (N/V). traMADol 0 Yes [id number] 50mg Take 1 Un ariel (ULTRAM) 50 9-22 tablet by ity of mg tablet 00:00: mouth [place] 00 every 6 Medical (six) Branch hours as needed for Pain (scale 7-10). ondansetron 2018- Yes [id number] 8mg Take 1 Univers (ZOFRAN) 8 9-22 tablet by ity of mg tablet 00:00: mouth [place] 00 every 8 Medical (eight) Branch hours as needed for Nausea and Vomiting (N/V). traMADol 2019-0 Yes [id number] 50mg Take 1 Un ariel (ULTRAM) 50 9-22 tablet by ity of mg tablet 00:00: mouth [place] 00 every 6 Medical (six) Branch hours as needed for Pain (scale 7-10). ondansetron 2019-0 Yes [id number] 8mg Take 1 Univers (ZOFRAN) 8 9-22 tablet by ity of mg tablet 00:00: mouth [place] 00 every 8 Medical (eight) Branch hours as needed for Nausea and Vomiting (N/V). traMADol 2019-0 Yes [id number] 50mg Take 1 Un ariel (ULTRAM) 50 9-22 tablet by ity of mg tablet 00:00: mouth [place] 00 every 6 Medical (six) Branch hours as needed for Pain (scale 7-10). ondansetron 2019-0 Yes [id number] 8mg Take 1 Univers (ZOFRAN) 8 9-22 tablet by ity of mg tablet 00:00: mouth [place] 00 every 8 Medical (eight) Branch hours as needed for Nausea and Vomiting (N/V). traMADol 2019-0 Yes [id number] 50mg Take 1 Un ariel (ULTRAM) 50 9-22 tablet by ity of mg tablet 00:00: mouth [place] 00 every 6 Medical (six) Branch hours as needed for Pain (scale 7-10). ondansetron 2018-0 Yes [id number] 8mg Take 1 Univers (ZOFRAN) 8 9-22 tablet by ity of mg tablet 00:00: mouth [place] 00 every 8 Medical (eight) Branch hours as needed for Nausea and Vomiting (N/V). traMADol 2019-0 Yes [id number] 50mg Take 1 Un ariel (ULTRAM) 50 9-22 tablet by ity of mg tablet 00:00: mouth [place] 00 every 6 Medical (six) Branch hours as needed for Pain (scale 7-10). ondansetron 0 Yes [id number] 8mg Take 1 Univers (ZOFRAN) 8 9-22 tablet by ity of mg tablet 00:00: mouth [place] 00 every 8 Medical (eight) Branch hours as needed for Nausea and Vomiting (N/V). traMADol 2019-0 Yes [id number] 50mg Take 1 Un ariel (ULTRAM) 50 9-22 tablet by ity of mg tablet 00:00: mouth [place] 00 every 6 Medical (six) Branch hours as needed for Pain (scale 7-10). omeprazole 2016-0 Yes 20mg Take 1 Tab U nivers (PRILOSEC 1-31 by mouth ity of OTC) 20 mg 00:00: daily. [place] tablet 00 Medical Branch omeprazole 2016-0 Yes 20mg Take 1 Tab U nivers (PRILOSEC 1-31 by mouth ity of OTC) 20 mg 00:00: daily. [place] tablet 00 Medical Branch omeprazole 2016-0 Yes 20mg Take 1 Tab U nivers (PRILOSEC 1-31 by mouth ity of OTC) 20 mg 00:00: daily. [place] tablet Medical Branch omeprazole Yes 20mg Take 1 Tab U nivers (PRILOSEC 1-31 by mouth ity of OTC) 20 mg 00:00: daily. [place] tablet 00 Medical Branch omeprazole Yes 20mg Take 1 Tab U nivers (PRILOSEC 1-31 by mouth ity of OTC) 20 mg 00:00: daily. [place] tablet Medical Branch omeprazole Yes 20mg Take 1 Tab U nivers (PRILOSEC 1-31 by mouth ity of OTC) 20 mg 00:00: daily. [place] tablet Medical Branch Omeprazole Yes 20mg Take 20 mg K elsey Magnesium 1-31 by mouth Seybol d 20 MG oral 00:00: Tablet 00 Delayed Response Omeprazole 2021- No 20mg Take 20 mg Jodie Magnesium 1-31 05-10 by mouth Seybo ld 20 MG oral 00:00: 00:00 Tablet 00 :00 Delayed Response levothyroxi 2014-05 Yes Univer s ne 0-11 ity of (SYNTHROID) 00:00: [place] 50 mcg 00 Medical tablet Branch levothyroxi 2014-05 Yes Univer s ne 0-11 ity of (SYNTHROID) 00:00: [place] 50 mcg 00 Medical tablet Branch levothyroxi 2014-05 Yes Univer s ne 0-11 ity of (SYNTHROID) 00:00: [place] 50 mcg 00 Medical tablet Branch levothyroxi 2014-05 Yes Univer s ne 0-11 ity of (SYNTHROID) 00:00: [place] 50 mcg 00 Medical tablet Branch levothyroxi 2014-05 Yes Univer s ne 0-11 ity of (SYNTHROID) 00:00: [place] 50 mcg 00 Medical tablet Branch levothyroxi 2014-05 Yes Univer s ne 0-11 ity of (SYNTHROID) 00:00: [place] 50 mcg 00 Medical tablet Branch Zoloft 100 Zoloft 100 No 1{table BID Zoloft 100 MG MG t} MG Vitamin D Vitamin D No 1{table QD Vitamin D 25 MCG 25 MCG t} 25 MCG (1000 UT) (1000 UT) (1000 UT) Levothyroxi Levothyroxi No Levothyrox ne Sodium ne Sodium ine Sodium 75 MCG 75 MCG 75 MCG Immunizations Ordered Immunization Filled Immunization Date Status Commen ts Source Name Name Tdap- (Boostrix, 2021-09-16 Completed Jodie hernandez Adacel) 00:00:00 Tdap- (Boostrix, 2021-09-16 Completed Jodie hernandez Adacel) 00:00:00 - External Tdap- (Boostrix, 2021-09-16 Completed Jodie hernandez Adacel) 00:00:00 - External Tdap- (Boostrix, 2021-09-16 Completed Jodie hernandez Adacel) 00:00:00 Flucelvax - Flucelvax - 2021-02-17 Completed [facility] t - multidose vial multidose vial 14:50:00 [facility] Influenza Quad-PF 2021-02-12 Completed [facility] 00:00:00 of Medicine Influenza Quad-PF 2021-02-12 Completed [facility] 00:00:00 of Medicine Influenza, 2021-02-12 Completed Jodie Perezold Injectable, Mdck, 00:00:00 Quadrivalent With Preservatie Influenza, 2021-02-12 Completed Jodie Perezold Injectable, Mdck, 00:00:00 - Exter nal Quadrivalent With Preservatie Influenza, 2021-02-12 Completed Jodie Perezold Injectable, Mdck, 00:00:00 - Exter nal Quadrivalent With Preservatie Influenza, 2021-02-12 Completed Jodie Perezold Injectable, Mdck, 00:00:00 Quadrivalent With Preservatie Influenza, 2021-02-12 Completed Jodie Bahybold Injectable, Mdck, 00:00:00 Quadrivalent With Preservatie Influenza Quad-PF 2015-12-28 Completed [facility] 00:00:00 of Medicine Influenza Quad-PF 2015-12-28 Completed [facility] 00:00:00 of Medicine Influenza Virus 2015-12-28 Completed Jodie Se ybold Vaccine, No Preserv, 00:00:00 age 6 months and up Influenza Virus 2015-12-28 Completed Jodie Bah ybold Vaccine, No Preserv, 00:00:00 - Ex ternal age 6 months and up Influenza Virus 2015-12-28 Completed Jodie Se ybold Vaccine, No Preserv, 00:00:00 - Ex ternal age 6 months and up Influenza Virus 2015-12-28 Completed Jodie Se ybold Vaccine, No Preserv, 00:00:00 age 6 months and up Influenza Virus 2015-12-28 Completed Jodie Se ybold Vaccine, No Preserv, 00:00:00 age 6 months and up Influenza Quad-PF 2014-12-30 Completed [facility] 00:00:00 of Medicine Influenza Quad-PF 2014-12-30 Completed [facility] 00:00:00 of Medicine Influenza Virus 2014-12-30 Completed Jodie Se ybold Vaccine, No Preserv, 00:00:00 age 6 months and up Influenza Virus 2014-12-30 Completed Jodie Se ybold Vaccine, No Preserv, 00:00:00 - Ex ternal age 6 months and up Influenza Virus 2014-12-30 Completed Jodie Se ybold Vaccine, No Preserv, 00:00:00 - Ex ternal age 6 months and up Influenza Virus 2014-12-30 Completed Jodie Se ybold Vaccine, No Preserv, 00:00:00 age 6 months and up Influenza Virus 2014-12-30 Completed Jodie Se ybold Vaccine, No Preserv, 00:00:00 age 6 months and up Influenza 2014-02-15 Completed [facility] Quadrivalent 3YRS+ 00:00:00 of Med icine Influenza 2014-02-15 Completed [facility] Quadrivalent 3YRS+ 00:00:00 of Med icine Influenza Virus 2014-02-15 Completed Jodie Se ybold Vaccine, Split, up 00:00:00 to age 3 Influenza Virus 2014-02-15 Completed Jodie Se ybold Vaccine, Split, up 00:00:00 - Exte rnal to age 3 Influenza Virus 2014-02-15 Completed Jodie Se ybold Vaccine, Split, up 00:00:00 - Exte rnal to age 3 Influenza Virus 2014-02-15 Completed Jodie Se ybold Vaccine, Split, up 00:00:00 to age 3 Influenza Virus 2014-02-15 Completed Jodie Se ybold Vaccine, Split, up 00:00:00 to age 3 Td 2011-10-13 Completed [facility] 00:00:00 of Medicine Td 2011-10-13 Completed [facility] 00:00:00 of Medicine Td- Tetanus & 2011-10-13 Completed Jodie Bah old Diphtheria Vaccine 00:00:00 (age 7+ years) Td- Tetanus & 2011-10-13 Completed Jodie Se old Diphtheria Vaccine 00:00:00 - Exte rnal (age 7+ years) Td- Tetanus & 2011-10-13 Completed Jodie Se old Diphtheria Vaccine 00:00:00 - Exte rnal (age 7+ years) Td- Tetanus & 2011-10-13 Completed [facility] old Diphtheria Vaccine 00:00:00 (age 7+ years) Td- Tetanus & 2011-10-13 Completed [facility] old Diphtheria Vaccine 00:00:00 (age 7+ years) Vital Signs Vital Name Observation Time Observation Value Comments Source Systolic blood 2022-07-01 17:38:00 110 mm[Hg] [facility] pressure Medicine Diastolic blood 2022-07-01 17:38:00 71 mm[Hg] [facility] Medicine Heart rate 2022-07-01 17:38:00 70 /min [facility] Body temperature 2022-07-01 17:38:00 36.39 [facility] Respiratory rate 2022-07-01 17:38:00 16 /min [facility] Body height 2022-07-01 17:38:00 167.6 cm [facility] Body weight 2022-07-01 17:38:00 120.203 kg [facility] BMI 2022-07-01 17:38:00 42.77 kg/m2 [facility] Oxygen saturation in 2022-07-01 17:38:00 16 /min [facility] Arterial blood by [facility] Pulse oximetry HEIGHT 2022-06-22 06:35:00 167.6 cm WEIGHT 2022-06-22 06:35:00 121.2 kg HEIGHT 2022-06-21 09:48:00 167.6 cm WEIGHT 2022-06-21 09:48:00 120.203 kg HEIGHT 2022-06-22 06:35:00 167.6 cm WEIGHT 2022-06-22 06:35:00 121.2 kg HEIGHT 2022-06-21 09:48:00 167.6 cm WEIGHT 2022-06-21 09:48:00 120.203 kg HEIGHT 2022-06-22 06:35:00 167.6 cm WEIGHT 2022-06-22 06:35:00 121.2 kg HEIGHT 2022-06-21 09:48:00 167.6 cm WEIGHT 2022-06-21 09:48:00 120.203 kg WEIGHT 2022-06-06 11:20:00 122.6 kg HEIGHT 2022-06-06 11:20:00 167.6 cm HEIGHT 2022-06-03 09:00:00 167.6 cm WEIGHT 2022-06-03 09:00:00 117.935 kg WEIGHT 2022-06-06 11:20:00 122.6 kg HEIGHT 2022-06-06 11:20:00 167.6 cm HEIGHT 2022-06-03 09:00:00 167.6 cm WEIGHT 2022-06-03 09:00:00 117.935 kg WEIGHT 2022-06-06 11:20:00 122.6 kg HEIGHT 2022-06-06 11:20:00 167.6 cm HEIGHT 2022-06-03 09:00:00 167.6 cm WEIGHT 2022-06-03 09:00:00 117.935 kg Systolic blood 2022-04-27 17:56:00 118 mm[Hg] [facility] pressure Medicine Diastolic blood 2022-04-27 17:56:00 83 mm[Hg] [facility] Medicine Heart rate 2022-04-27 17:56:00 76 /min [facility] Respiratory rate 2022-04-27 17:56:00 16 /min [facility] Body height 2022-04-27 17:56:00 167.6 cm [facility] Body weight 2022-04-27 17:56:00 123.378 kg [facility] BMI 2022-04-27 17:56:00 43.90 kg/m2 [facility] Oxygen saturation in 2022-04-27 17:56:00 100 /min [facility] Arterial blood by Medicine Pulse oximetry Systolic blood 2022-04-22 13:51:00 102 mm[Hg] Jodie Seybold - pressure External Diastolic blood 2022-04-22 13:51:00 68 mm[Hg] Celestinose y Seybold - pressure External Heart rate 2022-04-22 13:51:00 79 /min Jodie Ferguson eybold - External Body temperature 2022-04-22 13:51:00 36.06 Prachi Amarilys ey Seybold - External Respiratory rate 2022-04-22 13:51:00 16 /min Amarilys ey Seybold - External Body height 2022-04-22 13:51:00 167.6 cm Jodie Ferguson eybold - External Body weight 2022-04-22 13:51:00 125.193 kg Jodie Ferguson eybold - External BMI 2022-04-22 13:51:00 44.55 kg/m2 Jodie S eybold - External Systolic blood 2022-03-22 14:31:00 98 mm[Hg] Jodie Seybold - pressure External Diastolic blood 2022-03-22 14:31:00 58 mm[Hg] Noble y Seybold - pressure External Heart rate 2022-03-22 14:31:00 88 /min Jodie Ferguson eybold - External Body temperature 2022-03-22 14:31:00 36.06 Prachi Amarilys ey Seybold - External Respiratory rate 2022-03-22 14:31:00 16 /min Amarilys whitt Seybold - External Body height 2022-03-22 14:31:00 167.6 cm Jodie Ferguson eybold - External Body weight 2022-03-22 14:31:00 127.007 kg Jodie Ferguson eybold - External BMI 2022-03-22 14:31:00 45.19 kg/m2 oJdie Ferguson eybold - External Systolic blood 2022-01-16 15:56:00 109 mm[Hg] Univer sity of pressure [facility] Diastolic blood 2022-01-16 15:56:00 78 mm[Hg] Unive rsity of pressure [facility] Heart rate 2022-01-16 15:56:00 81 /min [facility] Body temperature 2022-01-16 15:56:00 36.56 Prachi Univ ersity [facility] Respiratory rate 2022-01-16 15:56:00 18 /min [facility] Body height 2022-01-16 15:56:[address] [facility] Body weight 2022-01-16 15:56:[address] [facility] Branch BMI 2022-01-16 15:56:00 44.84 kg/m2 [facility] Oxygen saturation in 2022-01-16 15:56:00 98 /min University Arterial blood by [facility] Pulse oximetry Branch Systolic blood 2021-10-12 19:35:00 119 mm[Hg] Jodie Seybold pressure Diastolic blood 2021-10-12 19:35:00 64 mm[Hg] Kelse y Seybold pressure Heart rate 2021-10-12 19:35:00 59 /min Jodie S eybold Body temperature 2021-10-12 19:35:00 36.11 Prachi Amarilys ey Seybold Respiratory rate 2021-10-12 19:35:00 15 /min Amarilys ey Seybold Body height 2021-10-12 19:35:00 167.6 cm Jodie S eybold Body weight 2021-10-12 19:35:00 139.799 kg Jodie S eybold BMI 2021-10-12 19:35:00 49.74 kg/m2 Jodie S jose eduardobold Oxygen saturation in 2021-10-12 19:35:00 99 /min Jodie Bahybold Arterial blood by Pulse oximetry Systolic blood 2021-09-16 13:02:00 127 mm[Hg] Jodie Seybold pressure Diastolic blood 2021-09-16 13:02:00 74 mm[Hg] Kelse y Seybold pressure Heart rate 2021-09-16 13:02:00 58 /min Jodie S eybold Body temperature 2021-09-16 13:02:00 35.94 Prachi Amarilys ey Seybold Respiratory rate 2021-09-16 13:02:00 14 /min Amarilys ey Seybold Body height 2021-09-16 13:02:00 167.6 cm Jodie S eybold Body weight 2021-09-16 13:02:00 145.332 kg Jodie S eybold BMI 2021-09-16 13:02:00 51.71 kg/m2 Jodie S eybold Systolic blood 2021-09-14 14:00:00 131 mm[Hg] Jodie Seybmarianna pressure Diastolic blood 2021-09-14 14:00:00 76 mm[Hg] Kelse y Seybold pressure Heart rate 2021-09-14 14:00:00 76 /min Jodie Ferguson eybold Body temperature 2021-09-14 14:00:00 36.22 Prachi Amarilys whitt Seybold Respiratory rate 2021-09-14 14:00:00 15 /min Amarilys ey ybold Body height 2021-09-14 14:00:00 167.6 cm Jodie whittbold Body weight 2021-09-14 14:00:00 145.605 kg Jodie whittbold BMI 2021-09-14 14:00:00 51.81 kg/m2 Jodie whittbogriselda Oxygen saturation in 2021-09-14 14:00:00 99 /min Jodie Matos Arterial blood by Pulse oximetry Body weight 2021-08-30 16:36:00 145.605 kg Jodie whittbold BMI 2021-08-30 16:36:00 51.81 kg/m2 Jodie whittbold Systolic blood 2021-08-30 01:23:00 121 mm[Hg] Univer sity of pressure [facility] Diastolic blood 2021-08-30 01:23:00 82 mm[Hg] Unive rsity of [facility] Heart rate 2021-08-30 01:23:00 72 /min [facility] Body temperature 2021-08-30 01:23:00 36.56 Prachi Univ ersity of [facility] Respiratory rate 2021-08-30 01:23:00 17 /min [facility] Body height 2021-08-30 01:23:[address] [facility] Body weight 2021-08-30 01:23:[address] [facility] BMI 2021-08-30 01:23:00 52.20 kg/m2 [facility] Oxygen saturation in 2021-08-30 01:23:00 98 /min [facility] Arterial blood by [facility] Pulse oximetry Branch Systolic blood 2021-08-19 23:35:00 129 mm[Hg] Univer sity of pressure [facility] Diastolic blood 2021-08-19 23:35:00 81 mm[Hg] Unive rsity of pressure [facility] Heart rate 2021-08-19 23:35:00 87 /min [facility] Body temperature 2021-08-19 23:35:00 36.44 Prachi Univ ersity [facility] Respiratory rate 2021-08-19 23:35:00 18 /min Univ ersity [facility] Body height 2021-08-19 23:35:00 165.1 cm [facility] Body weight 2021-08-19 23:35:00 147.419 kg [facility] BMI 2021-08-19 23:35:00 54.08 kg/m2 [facility] Oxygen saturation in 2021-08-19 23:35:00 98 /min University of Arterial blood by [place] [employer] Pulse oximetry Branch Systolic blood 2021-07-04 23:18:23 154 mm[Hg] Univer sity of pressure [facility] Diastolic blood 2021-07-04 23:18:23 84 mm[Hg] Unive rsity of pressure [facility] Heart rate 2021-07-04 23:18:23 70 /min [facility] Respiratory rate 2021-07-04 23:18:23 20 /min Univ ersity [facility] Oxygen saturation in 2021-07-04 23:18:23 98 /min [facility] of Arterial blood by [place] [employer] Pulse oximetry Branch Body temperature 2021-07-04 21:42:00 36.44 Prachi Univ ersity [facility] Body height 2021-07-04 21:42:00 160 cm [facility] Body weight 2021-07-04 21:42:00 160.12 kg [facility] BMI 2021-07-04 21:42:00 62.53 kg/m2 [facility] Systolic blood 2021-04-08 23:49:00 135 mm[Hg] Univer sity of pressure [facility] Diastolic blood 2021-04-08 23:49:00 88 mm[Hg] Unive rsity of pressure [facility] Heart rate 2021-04-08 23:49:00 80 /min Universi ty [facility] Body temperature 2021-04-08 23:49:00 36.61 Prachi [facility] Res[facility] rate 2021-04-08 23:49:00 18 /min [facility] Body height 2021-04-08 23:49:00 165.1 cm Universi ty [facility] Body weight 2021-04-08 23:49:00 158.714 kg Universi ty [facility] BMI 2021-04-08 23:49:00 58.23 kg/m2 [facility] Oxygen saturation in 2021-04-08 23:49:00 100 /min [facility] blood by [facility] Pulse oximetry Branch height 2021-03-09 14:40:00 64 [in_i] [facility] weight 2021-03-09 14:40:00 346.2 [lb_av] Common [facility] temperature 2021-03-09 14:40:00 97.1 [degF] Common [facility] bmi 2021-03-09 14:40:00 59.42 kg/m2 [facility] oximetry 2021-03-09 14:40:00 97 % [facility] respiratory rate 2021-03-09 14:40:00 17 /min [facility] blood pressure 2021-03-09 14:40:00 137 mm[Hg] Common [facility] - systolic [facility] blood pressure 2021-03-09 14:40:00 71 mm[Hg] Common [facility] - diastolic [facility] Systolic blood 2022-06-25 11:00:00 142 mm[Hg] [facility] Diastolic blood 2022-06-25 11:00:00 74 mm[Hg] [facility] Heart rate 2022-06-25 11:00:00 73 /min [facility] Body temperature 2022-06-25 11:00:00 36.56 Prachi [facility] Respiratory rate 2022-06-25 11:00:00 17 /min [facility] Oxygen saturation in 2022-06-25 11:00:00 100 /min [facility] Arterial blood by Medical Ce nter Pulse oximetry Body height 2022-06-22 06:35:00 167.6 cm [facility] Body weight 2022-06-22 06:35:00 121.2 kg [facility] BMI 2022-06-22 06:35:00 43.13 kg/m2 [facility] BMI 2022-06-21 09:48:00 42.77 kg/m2 [facility] Body height 2022-06-21 09:48:00 167.6 cm [facility] Body weight 2022-06-21 09:48:00 120.203 kg [facility] Systolic blood 2022-06-17 11:39:00 113 mm[Hg] [facility] Diastolic blood 2022-06-17 11:39:00 65 mm[Hg] [facility] Heart rate 2022-06-17 11:39:00 70 /min [facility] Body temperature 2022-06-17 11:39:00 36.28 Prachi [facility] Respiratory rate 2022-06-17 11:39:00 18 /min [facility] Oxygen saturation in 2022-06-17 11:39:00 100 /min [facility] Arterial blood by Medical Ce nter Pulse oximetry Systolic blood 2022-06-06 15:29:00 144 mm[Hg] [facility] Diastolic blood 2022-06-06 15:29:00 70 mm[Hg] [facility] Heart rate 2022-06-06 15:29:00 65 /min [facility] Body temperature 2022-06-06 15:29:00 36.22 Prachi [facility] Respiratory rate 2022-06-06 15:29:00 16 /min [facility] Oxygen saturation in 2022-06-06 15:29:00 98 /min [facility] Arterial blood by Medical Ce nter Pulse oximetry Body height 2022-06-06 11:20:00 167.6 cm [facility] Body weight 2022-06-06 11:20:00 122.6 kg [facility] BMI 2022-06-06 11:20:00 43.62 kg/m2 [facility] Diastolic (mm Hg) 2021-02-09 21:00:00 [facility] Systolic (mm Hg) 2021-02-09 21:00:00 Amadou riarigoberto [facility] Weight 2021-02-09 21:00:00 [facility] Heart Rate 2021-02-09 21:00:00 [facility] Procedures Procedure Date / Time Performing Clinician Source Performed POCT-GLUCOSE METER 2022-06-25 12:11:00 [facility] POCT-GLUCOSE METER 2022-06-25 08:21:00 [facility] EEG 12-26 HR CONTINUOUS 2022-06-24 07:45:00 [facility] MONITORING WITH VIDEO Medical Ce nter CBC W/PLT COUNT & AUTO 2022-06-24 04:11:[address] [facility] BASIC METABOLIC PANEL 2022-06-24 04:11:00 [facility] MAGNESIUM 2022-06-24 04:11:00 [facility] PHOSPHORUS 2022-06-24 04:11:00 [facility] CBC W/PLT COUNT & AUTO 2022-06-24 04:11:00 [facility] MR BRAIN WITH & WITHOUT IV 2022-06-23 12:22:[address] [facility] EEG 12-26 HR CONTINUOUS 2022-06-23 11:11:[address] [facility] MONITORING WITH VIDEO Medical Ce nter POCT-GLUCOSE METER 2022-06-23 05:30:00 [facility] SARS-COV2/RT-PCR ([facility] & 2022-06-23 05:11:00 [facility] REF LABS) [facility] BASIC METABOLIC PANEL 2022-06-23 04:19:00 [facility] MAGNESIUM 2022-06-23 04:19:00 [facility] PHOSPHORUS 2022-06-23 04:19:00 [facility] CBC (HEMOGRAM ONLY) 2022-06-23 04:19:00 [facility] APTT 2022-06-23 04:19:00 [facility] TSH/FREE T4 IF INDICATED 2022-06-23 04:19:00 [facility] HEPATIC FUNCTION PANEL 2022-06-23 04:19:[address] [facility] CALCIUM, IONIZED 2022-06-23 04:19:00 [facility] T4, FREE 2022-06-23 04:19:00 [facility] LACTIC ACID, ARTERIAL 2022-06-23 00:11:00 [facility] POCT-GLUCOSE METER 2022-06-22 23:46:00 Khalif Green [facility] HEMOGLOBIN A1C 2022-06-22 20:46:00 [facility] BLOOD GAS, ARTERIAL 2022-06-22 20:46:00 [facility] LACTIC ACID, ARTERIAL 2022-06-22 20:46:[address] [facility] [address] BRAIN WITHOUT IV 2022-06-22 20:15:00 [facility] BLOOD GAS, ARTERIAL 2022-06-22 19:21:00 [facility] CBC (HEMOGRAM ONLY) 2022-06-22 19:20:00 [facility] MAGNESIUM 2022-06-22 19:20:00 [facility] PHOSPHORUS 2022-06-22 19:20:00 Claudio Burnettutha [facility] COMPREHENSIVE METABOLIC 2022-06-22 19:20:00 Anju Burnett [facility] PROTHROMBIN TIME/INR 2022-06-22 19:20:00 [facility] STAT-LAB IONIZED CALCIUM 2022-06-22 14:46:41 [facility] RRL CRITICAL LABS 2022-06-22 14:46:39 [facility] (ABG,NA,K,H&H,GLUCOSE) Medical C enter BLOOD GAS, ARTERIAL 2022-06-22 14:46:39 [facility] SODIUM NA-STAT LAB 2022-06-22 14:46:39 [facility] POTASSIUM-STAT LAB 2022-06-22 14:46:39 [facility] GLUCOSE-STAT LAB 2022-06-22 14:46:39 [facility] HGB/HCT (H&H) - STAT LAB 2022-06-22 14:46:39 [facility] STAT-LAB IONIZED CALCIUM 2022-06-22 13:05:09 [facility] RRL CRITICAL LABS 2022-06-22 13:05:07 [facility] (ABG,NA,K,H&H,GLUCOSE) Medical C enter BLOOD GAS, ARTERIAL 2022-06-22 13:05:07 [facility] SODIUM NA-STAT LAB 2022-06-22 13:05:07 [facility] POTASSIUM-STAT LAB 2022-06-22 13:05:07 [facility] GLUCOSE-STAT LAB 2022-06-22 13:05:07 [facility] HGB/HCT (H&H) - STAT LAB 2022-06-22 13:05:07 [facility] STAT-LAB IONIZED CALCIUM 2022-06-22 11:22:08 [facility] RRL CRITICAL LABS 2022-06-22 11:22:02 [facility] (ABG,NA,K,H&H,GLUCOSE) Medical C enter BLOOD GAS, ARTERIAL 2022-06-22 11:22:02 [facility] SODIUM NA-STAT LAB 2022-06-22 11:22:02 [facility] POTASSIUM-STAT LAB 2022-06-22 11:22:02 [facility] 2022-06-22 11:22:02 [facility] HGB/HCT (H&H) - STAT LAB 2022-06-22 11:22:02 [facility] TISSUE EXAM 2022-06-22 10:58:00 [facility]-06-22 09:25[facility]04 [facility] 2022-06-22 09:24:58 [facility] (ABG,NA,K,H&H,GLUCOSE) Medical C enter BLOOD GAS, ARTERIAL 2022-06-22 09:24:58 [facility] SODIUM NA-STAT LAB 2022-06-22 09:24:58 [facility] POTASSIUM-STAT LAB 2022-06-22 09:24:58 [facility] GLU[facility]SE-STAT LAB 2022-06-22 09:24:58 [facility] HGB/HCT (H&H) - STAT LAB 2022-06-22 09:24:58 [facility]AN[facility], 2022-06-22 08:15:00 Deniz [facility] SUPRATENTORIAL, FOR Medical Cent er EXCISION OF MENINGIOMA US INTRAOPERATIVE 2022-06-22 08:15[facility] 08:15:00 Deniz [facility] MONITORING, INTRAOPERATIVE [facility] CRANIECTOMY, 2022-06-22 08:10:00 Deniz [facility] SUPRATENTORIAL, FOR Medical Cent er EXCISION OF MENINGIOMA US INTRAOPERATIVE 2022-06-22 08:10:00 Deniz [facility] NEUROPHYSIOLOGIC 2022-06-22 08:10:00 Deniz [facility] MONITORING, INTRAOPERATIVE [facility] POCT , URINE 2022-06-22 06:23:00 Vanessa Fuller [facility] APTT 2022-06-20 11:25:00 Green, [facility] PROTHROMBIN TIME/INR 2022-06-20 11:25:00 Green, [facility] BASIC METABOLIC PANEL 2022-06-20 11:25:00 Green, [facility] CBC W/PLT COUNT & AUTO 2022-06-20 11:25:00 Green, [facility] CBC W/PLT COUNT & AUTO 2022-06-20 11:25:00 Green, [facility] TYPE AND SCREEN, AUTOMATED 2022-06-20 11:23:00 Green, [facility] ECG 12-LEAD 2022-06-17 11:41:33 Unknown, H[facility] ECG 12-LEAD 2022-06-17 11:41:33 Green, [facility] ECG 12-LEAD 2022-06-17 11:41:33 Unknown, H[facility] URINALYSIS W/ REFLEX URINE 2022-06-17 11:36:00 Green, [facility] XR CHEST 2 VIEWS 2022-06-17 11:27:00 Green, [facility] PROCEDURE, IN 2022-06-06 21:30:00 Virtual, Surgeon Critical access hospital NON-OPERATING ROOM SETTING [facility] MR BRAIN WITH & WITHOUT IV 2022-06-06 14:26:00 Maria D Stephens [facility] CONTRAST [facility] POCT , URINE 2022-06-06 11:31:00 Gonsalo Rios [facility] POCT SARS-COV-2 ANTIGEN 2022-01-16 15:56:00 Jomar Acosta [facility] (BINAX NOW) Medical Branch [id number] 2021-07-22 00:00:00 [facility] [id number] 2021-07-22 00:00:00 [facility] CONSENT/REFUSAL FOR 2021-07-04 21:35:26 Doctor Unassigned, No [facility] DIAGNOSIS AND TREATMENT Name Medical Branch POCT GRP A STREP 2021-04-08 23:53:00 Marlo Valero [facility] (MOLECULAR) Medical Branch ASSIGNMENT OF BENEFITS 2021-04-08 23:42:30 Doctor Unassigned, No [facility] Name [facility] Branch Plan of Care Planned Activity Planned Date Details Comments Source Future Scheduled 2031-09-17 DTAP/TDAP/TD VACCINES [facility] 00:[facility]:00 (2 - Td or Tdap) [code Medic al Center = DTAP/TDAP/TD VACCINES (2 - Td or Tdap)] Future Scheduled 2031-09-17 DTAP/TDAP/TD VACCINES [facility] 00:00:00 (2 - Td or Tdap) [code Medic al Center = DTAP/TDAP/TD VACCINES (2 - Td or Tdap)] Future Scheduled 2031-09-17 DTAP/TDAP/TD VACCINES [facility] 00:00:00 (2 - Td or Tdap) [code Medic al Center = DTAP/TDAP/TD VACCINES (2 - Td or Tdap)] Future Scheduled 2031-09-17 DTAP/TDAP/TD VACCINES [facility] 00:00:00 (2 - Td or Tdap) [code Medic al Center = DTAP/TDAP/TD VACCINES (2 - Td or Tdap)] Future Scheduled 2031-09-17 DTAP/TDAP/TD VACCINES [facility] 00:00:00 (2 - Td or Tdap) [code Medic al Center = DTAP/TDAP/TD VACCINES (2 - Td or Tdap)] Future Scheduled 2031-09-17 DTAP/TDAP/TD VACCINES [facility] 00:00:00 (2 - Td or Tdap) [code Medic al Center = DTAP/TDAP/TD VACCINES (2 - Td or Tdap)] Future Scheduled 2023-06-[address] [facility] Test 00:00:00 Counseling and Medical Cente r Screening (12+) [code = Tobacco Cessation Counseling and Screening (12+)] Future Scheduled 2023-06-[address] [facility] Test 00:00:00 Counseling and Medical Cente r Screening (12+) [code = Tobacco Cessation Counseling and Screening (12+)] Future Scheduled 2023-06-[address] [facility] Test 00:00:00 Counseling and Medical Cente r Screening (12+) [code = Tobacco Cessation Counseling and Screening (12+)] Future Scheduled 2023-06-[address] [facility] Test 00:00:00 Counseling and Medical Cente r Screening (12+) [code = Tobacco Cessation Counseling and Screening (12+)] Future Scheduled 2023-06-[address] [facility] Test 00:00:00 Counseling and Medical Cente r Screening (12+) [code = Tobacco Cessation Counseling and Screening (12+)] Future Scheduled 2023-06-[address] [facility] Test 00:00:00 Counseling and Medical Cente r Screening (12+) [code = Tobacco Cessation Counseling and Screening (12+)] Future Scheduled 2022-07-01 Screening for malignant [facility] Test 13:14:36 neoplasm of colon of Medicin e (procedure) [code = 420715704] Future Scheduled 2022-07-01 COVID-19 Vaccine (#1) [facility] Test 13:14:36 [code = COVID-19 of Medicine Vaccine (#1)] Future Scheduled 2022-07-01 Human immunodeficiency B [facility] Test 13:14:36 virus screening of Medicine (procedure) [code = 842201579] Future Scheduled 2022-07-01 Hepatitis C screening Ba [facility] Test 13:14:36 (procedure) [code = of Medic ine 527119340] Future Scheduled 2022-07-01 Screening for malignant [facility] Test 13:14:36 neoplasm of cervix of Medici ne (procedure) [code = 196822034] Future Scheduled 2022-07-01 FLU VACCINE > 6 MONTHS B [facility] Test 13:14:36 [code = FLU VACCINE > 6 of M edicine MONTHS] Future Scheduled 2022-07-01 Screening for malignant [employer] Test 13:14:36 neoplasm of breast of Medici ne (procedure) [code = 298801806] Future Scheduled 2022-07-01 BMI Follow Up Plan [employer] Test 13:14:36 [code = BMI Follow Up of Med icine Plan] Future Scheduled 2022-07-01 TETANUS SHOT (ADULT) [employer] Test 13:14:36 [code = TETANUS SHOT of Medi cine (ADULT)] Future Scheduled 2022-05-[address] [facility] Test 00:00:00 (12+) [code = Medical Center DEPRESSION SCREENING (12+)] Future Scheduled 2022-05-[address] [facility] Test 00:00:00 (12+) [code = Medical Center DEPRESSION SCREENING (12+)] Future Scheduled 2022-05-[address] [facility] Test 00:00:00 (12+) [code = Medical Center DEPRESSION SCREENING (12+)] Future Scheduled 2022-05-[address] [facility] Test 00:00:00 (12+) [code = Medical Center DEPRESSION SCREENING (12+)] Future Scheduled 2022-05-[address] [facility] Test 00:00:00 (12+) [code = Medical Center DEPRESSION SCREENING (12+)] Future Scheduled 2022-05-[address] [facility] Test 00:00:00 (12+) [code = Medical Center DEPRESSION SCREENING (12+)] Future Scheduled 2022-04-27 Screening for malignant [facility] Test 17:32:36 neoplasm of colon of Medicin e (procedure) [code = 043872256] Future Scheduled 2022-04-27 Screening for malignant [facility] Test 17:32:36 neoplasm of breast of Medici ne (procedure) [code = 248464033] Future Scheduled 2022-04-27 COVID-19 Vaccine (#1) [employer] Test 17:32:36 [code = COVID-19 of Medicine Vaccine (#1)] Future Scheduled 2022-04-27 Hepatitis C screening [employer] Test 17:32:36 (procedure) [code = of Medic ine 572055046] Future Scheduled 2022-04-27 Human immunodeficiency [employer] Test 17:32:36 virus screening of Medicine (procedure) [code = 388623185] Future Scheduled 2022-04-27 Screening for malignant [facility] Test 17:32:36 neoplasm of cervix of Medici ne (procedure) [code = 869341555] Future Scheduled 2022-04-27 TETANUS SHOT (ADULT) [facility] Test 17:32:36 [code = TETANUS SHOT of Medi cine (ADULT)] Future Scheduled 2022-04-27 FLU VACCINE > 6 MONTHS [facility] Test 17:32:36 [code = FLU VACCINE > 6 of M edicine MONTHS] Future Scheduled 2022-04-27 BMI FOLLOW UP PLAN [facility] Test 17:32:36 [code = BMI FOLLOW UP of Med icine PLAN] Future Scheduled 2022-04-27 MRI BRAIN W WO CONTRAST 1 Occurrences [facility] Test 12:48:22 [code = 24063-6] starting of Medicine 04/27/2022 until 04/27/2023 Future Scheduled 2022 Lipid panel (procedure) [facility] Test 00:00:00 [code = 24842841] Medical Ce nter Future Scheduled 2022 Lipid panel (procedure) [facility] Test 00:00:00 [code = 01779957] Medical Ce nter Future Scheduled 2022 Lipid panel (procedure) [facility] 00:00:00 [code = 75957454] Medical Ce nter Future Scheduled 2022 Lipid panel (procedure) [facility] 00:00:00 [code = 47504264] Medical Ce nter Future Scheduled 2022 Lipid panel (procedure) [facility] 00:00:00 [code = 32385933] Medical Ce nter Future Scheduled 2022 Lipid panel (procedure) [facility] 00:00:00 [code = 05108397] Medical Ce nter Future Scheduled 2022-01-06 INFLUENZA VACCINE (#1) [facility] [code = INFLUENZA Medical Ce nter VACCINE (#1)] Future Scheduled 2022-01-06 INFLUENZA VACCINE (#1) [facility]:00:00 [code = INFLUENZA Medical Ce nter VACCINE (#1)] Future Scheduled 2022-01-06 INFLUENZA VACCINE (#1) [facility]:00:00 [code = INFLUENZA Medical Ce nter VACCINE (#1)] Future Scheduled 2022-01-06 INFLUENZA VACCINE (#1) [facility]:00:00 [code = INFLUENZA Medical Ce nter VACCINE (#1)] Future Scheduled 2022-01-06 INFLUENZA VACCINE (#1) [facility] 00:00:00 [code = INFLUENZA Medical Ce nter VACCINE (#1)] Future Scheduled 2022-01-06 INFLUENZA VACCINE (#1) [facility] 00:00:00 [code = INFLUENZA Medical Ce nter VACCINE (#1)] Future Scheduled 1998 Screening for malignant [facility] 00:00:00 neoplasm of cervix Medical C enter (procedure) [code = 259766152] Future Scheduled 1998 Screening for malignant [facility] 00:00:00 neoplasm of cervix Medical C enter (procedure) [code = 768374565] Future Scheduled 1998 Screening for malignant [facility] 00:00:00 neoplasm of cervix Medical C enter (procedure) [code = 573638192] Future Scheduled 1998 Screening for malignant [facility] 00:00:00 neoplasm of cervix Medical C enter (procedure) [code = 844142441] Future Scheduled 1998 Screening for malignant [facility] 00:00:00 neoplasm of cervix Medical C enter (procedure) [code = 400282943] Future Scheduled 1998 Screening for malignant [facility] 00:00:00 neoplasm of cervix Medical C enter (procedure) [code = 309423703] Future Scheduled 1995 [facility] [code = [facility]IS [facility] SCREENING] Future Scheduled 1995 [facility]IS C [facility] [code = HEPATITIS C Medical Center SCREENING] Future Scheduled 1995 [facility]ITIS C [facility] [code = HEPATITIS C Medical Center SCREENING] Future Scheduled 1995 [facility]IS C [facility] [code = HEPATITIS C Medical Center SCREENING] Future Scheduled 1995 [facility]IS C [facility] [code = HEPATITIS C Medical Center SCREENING] Future Scheduled 1995 [facility]ITIS C [facility] [code = HEPATITIS C Medical Center SCREENING] Future Scheduled 1977 COVID-19 VACCINE (#1) [facility] [code = COVID-[address] VACCINE (#1)] Future Scheduled 1977 COVID-19 VACCINE (#1) [facility]:00:00 [code = COVID-[address] VACCINE (#1)] Future Scheduled 1977 COVID-19 VACCINE (#1) [facility]:00:00 [code = COVID-[address] VACCINE (#1)] Future Scheduled 1977 COVID-19 VACCINE (#1) [facility]:00:00 [code = COVID-[address] VACCINE (#1)] Future Scheduled 1977 COVID-19 VACCINE (#1) [facility] [code = COVID-[address] VACCINE (#1)] Future Scheduled 1977 COVID-19 VACCINE (#1) [facility]:00 [code = COVID-[address] VACCINE (#1)] Future Scheduled 1977 CT Colonography (combo) [facility] 00:00:00 [code = CT Colonography [facility] (combo)] Future Scheduled 1977 Screening for malignant [facility] 00:00:00 neoplasm of colon Medical Ce nter (procedure) [code = 013490421] Future Scheduled 1977 Screening for malignant [facility] 00:00:00 neoplasm of colon Medical Ce nter (procedure) [code = 380518823] Future Scheduled 1977 Screening for malignant [facility] 00:00:00 neoplasm of colon Medical Ce nter (procedure) [code = 123845842] Future Scheduled 1977 Screening for malignant [facility] 00:00:00 neoplasm of colon Medical Ce nter (procedure) [code = 021024967] Future Scheduled 1977 Sigmoidoscopy [code = [facility] S[facility]oscopy] Medical Lucioe r Future Scheduled 1977 CT Colonography (combo) [facility] 00:00:00 [code = CT [facility] ([facility])] Future Scheduled 1977 Screening for malignant [facility] 00:00:00 neoplasm of colon Medical Ce nter (procedure) [code = 883918655] Future Scheduled 1977 Screening for malignant [facility] 00:00:00 neoplasm of colon Medical Ce nter (procedure) [code = 058867330] Future Scheduled 1977 Screening for malignant [facility] 00:00:00 neoplasm of colon Medical Ce nter (procedure) [code = 725685180] Future Scheduled 1977 Screening for malignant [facility] 00:00:00 neoplasm of colon Medical Ce nter (procedure) [code = 829968121] Future Scheduled 1977 Sigmoidoscopy [code = [facility] S[facility]oidoscopy] Medical Lucioe r Future Scheduled 1977 CT Colonography (combo) [facility] 00:00:00 [code = CT [facility] ([facility]bo)] Future Scheduled 1977 Screening for malignant [facility] 00:00:00 neoplasm of colon Medical Ce nter (procedure) [code = 040595928] Future Scheduled 1977 Screening for malignant [facility] 00:00:00 neoplasm of colon Medical Ce nter (procedure) [code = 870789755] Future Scheduled 1977 Screening for malignant [facility] 00:00:00 neoplasm of colon Medical Ce nter (procedure) [code = 343256979] Future Scheduled 1977 Screening for malignant [facility] 00:00:00 neoplasm of colon Medical Ce nter (procedure) [code = 215008049] Future Scheduled 1977 Sigmoidoscopy [code = [facility] S[facility]oidoscopy] Medical Lucioe r Future Scheduled 1977 CT Colonography (combo) [facility] 00:00:00 [code = CT Colonography [facility] (combo)] Future Scheduled 1977 Screening for malignant [facility] 00:00:00 neoplasm of colon Medical Ce nter (procedure) [code = 012372370] Future Scheduled 1977 Screening for malignant [facility] 00:00:00 neoplasm of colon Medical Ce nter (procedure) [code = 575787620] Future Scheduled 1977 Screening for malignant [facility] 00:00:00 neoplasm of colon Medical Ce nter (procedure) [code = 517454551] Future Scheduled 1977 Screening for malignant [facility] 00:00:00 neoplasm of colon Medical Ce nter (procedure) [code = 306243024] Future Scheduled 1977 Sigmoidoscopy [code = [facility] S[facility]oidoscopy] Medical Cente r Future Scheduled 1977 CT Colonography (combo) [facility] 00:00:00 [code = CT Colonography [facility] (combo)] Future Scheduled 1977 Screening for malignant [facility] 00:00:00 neoplasm of colon Medical Ce nter (procedure) [code = 490683284] Future Scheduled 1977 Screening for malignant [facility] 00:00:00 neoplasm of colon Medical Ce nter (procedure) [code = 911360831] Future Scheduled 1977 Screening for malignant [facility] 00:00:00 neoplasm of colon Medical Ce nter (procedure) [code = 473067032] Future Scheduled 1977 Screening for malignant [facility] 00:00:00 neoplasm of colon Medical Ce nter (procedure) [code = 663427725] Future Scheduled 1977 Sigmoidoscopy [code = [facility] S[facility]oidoscopy] Medical Cente r Future Scheduled 1977 CT Colonography (combo) [facility] 00:00:00 [code = CT Colonography [facility] (combo)] Future Scheduled 1977 Screening for malignant [facility] 00:00:00 neoplasm of colon Medical Ce nter (procedure) [code = 475906092] Future Scheduled 1977 Screening for malignant [facility] 00:00:00 neoplasm of colon Medical Ce nter (procedure) [code = 370454463] Future Scheduled 1977 Screening for malignant [facility] 00:00:00 neoplasm of colon Medical Ce nter (procedure) [code = 620128484] Future Scheduled 1977 Screening for malignant [facility] 00:00:00 neoplasm of colon Medical Ce nter (procedure) [code = 835688012] Future Scheduled 1977 Sigmoidoscopy [code = [facility] S[facility]oscopy] Medical Cente r Encounters Start End Encounter Admission Attending Care Care Encounter Source Date/Time Date/Time Type Type Clinicians Facility Department ID 2022-07-06 Outpatient [id number] 2EAD-2 Memoria 16:56:49 2368-40E5 68-60E7-6JF 368-40E5- 8 l -3IM7-G55 3-Z862F0189 BF3-F040A3 Mitch [id number] 1E1 [id number] 2022-07-01 Outpatient [id number]- [id number] 4A74 EBE1-6 Memoria 11:21:02 6421-40EE 21-40EE-9BC 421-40EE- 9 l -9BCF-EC5 F-EW1600152 BCF-BE5099 Mitch [id number] C81 383C81 2022-06-30 Outpatient [id number]- [id number] 0EE3 3FDC-4 Memoria 09:53:38 8N9A-74L7 5F-69W5-966 W7Z-77Z5- 9 l -970D-E73 D-[id number] 70D-C43830 Mitch [id number] 10C 84762T 2022-06-21 Outpatient [id number]- [id number]-[id number] C94A 0379-A Memoria 16:03:41 C569-32SI 66-42FA-BEE 966-42FA- B l -BEEC-2D4 C-7C7DE5U5D EEC-2D4AB8 Mitch MG2I0D1O4 2A6 A5F2A6 2022-06-21 Outpatient [id number]- [id number] 6070 D7E1-4 Memoria 09:59:33 49AB-4AB3 AB-8OP0-31W 9AB-4AB3- 9 l -09W3-99R 4-94F2I98D9 6K5-24R8A4 Mitch [id number] 171 [id number] 2022-06-17 Outpatient [id number] A080 898E-6 Memoria 10:48:00 6Y76-4B9H 96-3S8K-U18 W74-4Z3Y- A l -L72H-5U4 E-3D162UZKR 90E-3M378I Mitch 49DFACCEB CEB FACCEB 2022-06-10 Outpatient [id number]- [id number]-H2 A298 8E1D-D Memoria 07:04:18 N44K-8Q00 4C-9Z93-A10 54C-4B42- A l -W115-150 4-7893Y8213 704-3327D1 Mitch 4J2204L26 F76 965F76 2022-06-07 Outpatient [id number]- [id number] B67C 4074-4 Memoria 20:01:45 436D-42CD 6D-42CD-A5E 36D-42CD- A l -W0G9-4W0 0-7I0926434 7K6-6U1000 Mitch [id number] 9033-01-31 Outpatient [id number]- [id number] D434 0ABA-9 Memoria 16:39:07 958E-46DE 8E-46DE-B81 58E-46DE- B l -Q30Y-I39 E-[id number] 81E-M96926 Mitch [id number] 839 83R475 2022-06-06 Outpatient [id number]- JCMMO465-0L EDAA B091-6 Memoria 11:54:04 7Z8V-18NK 3E-45BF-B07 J7Y-48JT- B l -P49H-301 C-955N13SK0 07C-649F20 Mitch X97SC01PN 8CF CE98CF 2022-05-06 Outpatient [id number]- [id number] 916B 5441-5 Memoria 08:02:19 59EF-4E77 EF-8B05-880 9EF-4E77- 9 l -9815-204 5-312SJW69L 815-204DCE Mitch QIV46Z78U 56E 94F56E 2022-04-27 Outpatient [id number]- [id number]-S7 9EB4 8B88-A [facility] 12:57:30 P3Z0-9189 F0-4245-892 7F6-9453- 8 l -8922-50D 2-37TP31922 922-50DC41 Mitch [id number] 2FC 8352FC 2022-04-27 Outpatient [id number]- 0NRMOXV8-J4 9EAB BAA3-E Memoria 12:31:32 V2B2-6YZ3 A6-8VD9-U54 3C0-9SG5- B l -C98G-7I8 E-8V3Z5I78M 89E-3D4A0A Mitch X1M35FS40 A30 00BA30 2022-04-27 Outpatient [id number]- MSD497P2-F5 BDA4 51C5-C [facility] 12:00:32 F41Y-2156 6B-4445-A7E 36B-4445- A l -O2YR-3J9 A-8X1DP39K0 7EA-6C6FB2 Mitch MH83A870V 91D 0E586X 2022-04-27 Outpatient [id number]- [id number] C7F6 9939-5 Memoria 09:37:27 01T7-41P3 F9-76O9-785 3R1-16G4- 9 l -9296-2CB 6-7QUKKN6EY 296-2CBFEE Mitch [id number] 098 7ZT934 2022-04-27 Outpatient [id number]- [id number]-N2 4799 EFC8-D [facility] 07:55:25 R2E8-50V5 E1-09D7-071 8B8-85F6- 8 l -8018-A5B 8-W8X7V8182 018-A5B4B6 Mitch [id number] 513 [id number] 9523-12-19 [facility] [id number]- [id number] 2284 3256-4 Memoria 09:21:59 4CED-40EF ED-40EF-A7B JOSE DE JESUS-40EF- A l -M5KM-LJK E-BQI115817 7BE-WPK783 Mitch [id number] 8010-12-19 Outpatient [id number] 1D47 4123-E Memoria 09:00:32 S45L-98P7 0B-72A5-A5K 60B-47E7- B l -Q0Y9-4X2 5-8X31I90N8 4H0-8M68M3 Mitch 8J73T9E0B D3F 5D7D3F 2022-04-25 Outpatient [id number]- [id number] 6029 AC85-2 Memoria 08:41:00 2973-44FE 73-44FE-A72 973-44FE- A l -S426-C38 3-S88NQ5180 723-C18DA9 Mitch [id number] [id number] 1106-12-16 Outpatient [id number]- 5386SV2Z-F0 7054 AC8D-F Mem[facility] 07:50:59 J30Y-3593 5E-4465-DEONDRE 85E-4465- A l -ABA3-2A0 3-5U752078V BA3-2A1707 Mitch [id number] 433 44K782 2022-03-22 Outpatient [id number] 8003 6D00-E Memoria 08:31:44 J21R-01EN 0D-46CE-8A9 20D-46CE- 8 l -8F63-T15 1-J31P01797 Q76-I69G63 Mitch [id number] 67A 17525D 2022-01-16 Outpatient [id number]- [id number]-QK 0C35 04FD-E [facility] 10:51:27 KP05-67P6 59-23L8-186 E51-99H1- 9 l -9322-CD6 2-SG503PI90 322-FR205E Mitch 70BS247P0 7B5 A647B5 2022-01-05 Outpatient [id number] [id number] 1110-5 Memoria 08:00:46 21T2-32E6 C6-94I3-5AR 0Z0-36J8- 9 l -6YD5-6WP 7-7NS0AJ83S BC7-4DF7AD Mitch [id number] 62C 01B62C 2021-06-02 Outpatient ReardonDANIELITO solomon [facility] [id number] Common 14:12:36 Josselin [id number] [facility] 2021-06-02 Outpatient Reardon, [facility] [id number] Common 14:07:54 Josselin [id number] [facility] 2022-07-07 2022-07-07 Outpatient JODIE HAMILTON [id number] Jodie 15:30:00 15:30:00 YFN yin 2022-07-06 2022-07-06 Outpatient JODIE HAMILTON [id number] Jodie 00:00:00 00:00:00 YFN yin 2022-07-04 2022-07-04 Outpatient JODIE HAMILTON [id number] Jodie 14:00:00 14:00:00 YFN yin 2022-07-04 2022-07-04 Outpatient JODIE HAMILTON [id number] Jodie 00:00:00 00:00:00 YFN yin 2022-07-01 2022-07-01 Office KHALIF GREEN [facility] [id number] [facility] 11:19:58 16:20:36 Visit AMBULATOR 350.1.13.21 College Y 0.2.7.2.686 [id number] [facility]i [facility] 300 e 2022-06-22 2022-06-25 [facility] Khalif Green [facility] [id number] 20 [id number] [facility] 05:49:00 18:13:00 [facility] 2022-06-22 2022-06-25 Inpatient KHALIF GREEN [facility] Surgery [id number] [facility] 05:49:00 18:13:00 2022-06-22 2022-06-25 [facility] Khalif Gonzales [facility] [id number] [id number] 05:49:00 18:13:00 Encounter [facility] 2022-06-23 2022-06-23 Travel [facility] [id number] [facility] 00[facility]00 [facility] 2022-06-23 2022-06-23 Travel [facility] [id number] [facility] 00:[facility] 00:00:00 [facility] 2022-06-22 2022-06-22 Anesthesia HaleonardaJavier rankin [facility] [id number] 08:10:00 17:29:[address] [facility] 2022-06-22 2022-06-22 Anesthesia Vanita Javier [facility] [id number] 08:10:00 17:29:[address] [facility] 2022-06-22 2022-06-22 [facility] [id number] 08:15:00 15:45:00 [facility] 2022-06-22 2022-06-22 [facility] [id number] 08:15:00 15:45:00 [facility] 2022-06-22 2022-06-22 Travel [facility] [id number] [facility] 00:[facility]:00 00:00:00 [facility] 2022-06-22 2022-06-22 Travel [facility] [id number] [facility] 00:[facility] 00:00:00 [facility] 2022-06-21 2022-06-21 Outpatient [facility] [id number] [facility] 09:59:13 23:59:00 2022-06-21 2022-06-21 [facility] Khalif Green [facility] [id number] [id number] 09:00:00 23:59:00 Encounter [facility] 2022-06-21 2022-06-21 [facility] Khalif Green [facility] [id number] [id number] 09:00:00 23:59:00 Encounter [facility] 2022-06-21 2022-06-21 Travel [facility] [id number] [facility] 00:00[facility]00 00:00:00 [facility] 2022-06-21 2022-06-21 Travel [facility] [id number] [facility] 00:00:00 00:00:00 [facility] 2022-06-20 2022-06-20 Outpatient [facility]HALIF [facility] [id number] [facility] 09:03:57 23:59:00 2022-06-20 2022-06-20 [facility] [id number] [id number] 09:00:00 23:59:00 Encounter [facility] 2022-06-20 2022-06-20 [facility] [id number] [id number] 09:00:00 23:59:00 Encounter [facility] 2022-06-20 2022-06-20 Outpatient REID SLE [facility] [id number] [facility] 09:50:15 09:50:15 2022-06-17 2022-06-17 [facility] Khalif Green [facility] [id number] [id number] 10:49:22 23:59:00 Encounter [facility] 2022-06-17 2022-06-17 [facility] [id number] [id number] 10:49:22 23:59:00 Encounter [facility] 2022-06-17 2022-06-17 Outpatient KHALIF GONZALES [facility] [id number] [facility] 10:49:21 23:59:00 2022-06-17 2022-06-17 [facility] Khalif Green [facility] [id number] [id number] 10:48:47 10:48:47 Encounter [facility] 2022-06-17 2022-06-17 Outpatient KHALIF GONZALES [facility] [id number] [facility] 10:48:47 10:48:47 2022-06-17 2022-06-17 [facility] Khalif Green [facility] [id number] [id number] 10:48:47 10:48:47 Encounter [facility] 2022-06-17 2022-06-17 Outpatient [facility] [id number] SLE 10:47:54 10:47:54 2022-06-17 2022-06-17 Orders Khalif Green [facility] [id number] 00:00:00 00:00:00 Only [facility] 2022-06-17 2022-06-17 Orders Khalif Green [facility] [id number] 00:00:00 00:00:00 [facility] 2022-06-10 2022-06-10 Outpatient GREENREBECCAKHALIF [facility] [id number] [facility] 10:39:01 10:57:11 Maria T 2022-06-10 2022-06-10 Outpatient JODIE HAMILTON [id number] Jodie 00:00:00 00:00:00 YFN yin 2022-06-06 2022-06-06 [facility] [id number] 11:53:59 23:59:00 Encounter [facility] 2022-06-06 2022-06-06 Outpatient ANGELO [facility] [id number] SLE 11:53:59 23:59:00 MARIA D 2022-06-06 2022-06-06 [facility] [id number] 11:53:59 23:59:00 Encounter Maria D Claudio [facility] 2022-06-06 2022-06-06 [facility] [id number] 10:53:00 16:04:00 Encounter [facility] 2022-06-06 2022-06-06 Outpatient GABRIEL [facility] Surgery [id number] SLE 10:53:00 16:04:00 [place] 2022-06-06 2022-06-06 Hospital Gabriel, [facility] [id number] 10:53:00 16:04:00 Encounter [facility] 2022-06-06 2022-06-06 Surgery Virtual, [facility] [id number] 13:30:00 15:30:00 [facility] 2022-06-06 2022-06-06 Surgery Virtual, [facility] [id number] 13:30:00 15:30:00 Surgeon [facility] 2022-06-06 2022-06-06 Anesthesia Van, An [facility] [id number] 12:52:00 15:01:00 Event [facility] 2022-06-06 2022-06-06 Anesthesia Van, An [facility] [id number] 12:52:00 15:01:00 Event [facility] 2022-06-06 2022-06-06 Travel [facility] [id number] [facility] 00:00:00 00:00:00 [facility] 2022-06-06 2022-06-06 Travel [facility] [id number] [facility] 00:00:00 00:00:00 [facility] 2022-06-03 2022-06-03 Outpatient EL SLE SLE [id number] [facility] 09:19:23 23:59:00 2022-06-03 2022-06-03 [facility] [id number] 08:55:00 23:59:00 Encounter [facility] 2022-06-03 2022-06-03 [facility] [id number] 08:55:00 23:59:00 Encounter [facility] 2022-06-03 2022-06-03 Travel [facility] [id number] [facility] 00:00:00 00:00:00 [facility] 2022-06-03 2022-06-03 Travel [facility] [id number] [facility] 00:00:00 00:00:00 [facility] 2022-05-12 2022-05-12 Outside Angelo [facility] [id number] 00:00:00 00:00:00 Orders Maria D Pulliam [facility] 2022-05-12 2022-05-12 Outside Angelo [facility] [id number] 00:00:00 00:00:00 Orders Maria D [facility] 2022-05-11 2022-05-11 Orders Angelo [facility] [id number] 00:00:00 00:00:00 Only Maria D Pulilam [facility] 2022-05-11 2022-05-11 Orders Angelo [facility] [id number] 00:00:00 00:00:00 Only Maria D Pulliam [facility] 2022-05-06 2022-05-06 Outpatient LAB90 JODIE RIBERA [id number] Jodie 08:00:00 08:00:00 Seybol d 2022-05-05 2022-05-05 Outpatient JODIE ESCAMILLA [id number] Jodie 00:00:00 00:00:00 AMISH Seybol d 2022-04-29 2022-04-29 Outpatient JODIE MCNEIL [id number] Jodie 09:30:00 09:30:00 LUIS MIGUEL Seybol d 2022-04-29 2022-04-29 Outpatient KAILEE RIBERA [id number] Jodie 00:00:00 00:00:00 MD MARTINA Seybol d 2022-04-27 2022-04-27 Office KHALIF GREEN Camilo [id number] [id number] [facility] 11:42:14 14:41:42 Visit AMBULATOR 350.1.13.21 College Y 0.2.7.2.686 of [id number] [facility] 300 e 2022-04-27 2022-04-27 Outpatient LAB90 JODIE RIBERA [id number] Jodie 09:35:00 09:35:00 Seybol d 2022-04-27 2022-04-27 Outpatient MYKELSEYONL JODIE RIBERA [id number] Jodie 00:00:00 00:00:00 INE, MD Seybol d 2022-04-27 2022-04-27 Outpatient HUNDL JODIE RIBERA [id number] Jodie 00:00:00 00:00:00 YFN Seybol d 2022-04-25 2022-04-25 Outpatient HUNDL, JODIE RIBERA [id number] Jodie 00:00:00 00:00:00 YFN Seybol d 2022-04-22 2022-04-22 Outpatient LAB90 JODIE RIBERA [id number] Jodie 09:30:00 09:30:00 Seybol d 2022-04-22 2022-04-22 Outpatient HUNDL JODIE RIBERA [id number] Jodie 08:00:00 08:00:00 YFN Seybol d 2022-04-22 2022-04-22 Outpatient HUNDL JODIE RIBERA [id number] Jodie 00:00:00 00:00:00 YFN Seybol d 2022-04-21 2022-04-21 Outpatient HUNDL, JODIE RIBERA [id number] Jodie 00:00:00 00:00:00 YFN Seybol d 2022-04-20 2022-04-20 Outpatient HUNDL, JODIE RIBERA [id number] Jodie 00:00:00 00:00:00 YFN Seybol d 2022-04-20 2022-04-20 Outpatient HUNDL, JODIE RIBERA [id number] Jodie 00:00:00 00:00:00 YFN Seybol d 2022-04-19 2022-04-19 Outpatient HUNDL, JODIE RIBERA [id number] Jodie 15:00:00 15:00:00 YFN Seybol d 2022-04-19 2022-04-19 Outpatient HUNDJODIE Garner [id number] Jodie 08:00:00 08:00:00 YFN Seybol d 2022-03-22 2022-03-22 Outpatient HUNDLJODIE [id number] Jodie 08:30:00 08:30:00 YFN Seybol d 2022-03-21 2022-03-21 Outpatient JOY JODIE RIBERA [id number] Jodie 00:00:00 00:00:00 YFN Seybol d 2022-02-14 2022-02-14 Outpatient JOY JODIE RIBERA [id number] Jodie 00:00:00 00:00:00 YFN Seybol d 2022-01-27 2022-01-27 Outpatient PREZAS JODIE RIBERA [id number] Jodie 09:45:00 09:45:00 AMISH Seybol d 2022-01-26 2022-01-26 Outpatient LAB90 JODIE RIBERA [id number] Jodie 09:50:00 09:50:00 Seybol d 2022-01-26 2022-01-26 Outpatient JOY JODIE RIBERA [id number] Jodie 00:00:00 00:00:00 YFN Seybol d 2022-01-25 2022-01-25 Outpatient JOY JODIE RIBERA [id number] Jodie 00:00:00 00:00:00 YFN Seybol d 2022 2022 Outpatient KOBYJODIE [id number] Jodie 10:00:00 10:00:00 MARQUES Seybol d 2022-01-16 2022-01-16 Outpatient Claribel ACOSTA [facility] [id number] Univers 11:00:00 11:36:36 JOMAR gray [facility] 2022-01-16 2022-01-16 Urgent Jomar Acosta [facility] [id number] Univers 11:00:00 11:36:36 [facility] [id number] [facility] [id number] Jordan as RAMY?BLEA [id number] [address] MEDICAL OFFICE BUILDING 2022-01-05 2022-01-05 Office Joy Oliveira [id number] Jodie 08:00:00 08:30:00 Visit Yfn Ruvalcaba [id number] Se ybold [id number] 2021-12-08 2021-12-08 Office Tee Hamilton [id number] Jodie 08:00:00 08:30:00 Visit Yfn Ruvalcaba [id number] Se ybold [id number] 2021-11-24 2021-11-24 Outpatient JODIE RIBERA [id number] Jodie 09:10:00 09:10:00 Seybol d 2021-11-24 2021-11-24 Outpatient JODIE RIBERA [id number] Jodie 09:05:00 09:05:00 Seybol d 2021-11-24 2021-11-24 Outpatient JODIE RIBERA [id number] Jodie 09:00:00 09:00:00 Seybol d 2021-11-24 2021-11-24 Outpatient HOJODIE [id number] Jodie 00:00:00 00:00:00 LISBET Seyb old 2021-11-15 2021-11-15 Outpatient JOSE GRigobertoJODIE [id number] Jodie 00:00:00 00:00:00 YFN Seybol d 2021-11-11 2021-11-11 Outpatient JOY JODIE RIBERA [id number] Jdoie 08:00:00 08:00:00 YFN Seybol d 2021-11-10 2021-11-10 Office Tee Hamilton 1.2.840.114 [id number] Jodie 09:30:00 10:00:00 Visit Yfn Ruvalcaba 350.1.13.13 Se ybold 1.2.7.2.686 [id number] 2021-11-09 2021-11-09 Outpatient JODIE RIBERA [id number] Jodie 15:20:00 15:20:00 Seybol d 2021-10-21 2021-10-21 Outpatient QBR12-ZLW JODIE RIBERA [id number] Jodie 09:25:00 09:25:00 Seybol d 2021-10-21 2021-10-21 Outpatient LAB JODIE RIBERA [id number] Jodie 09:15:00 09:15:00 Seybol d 2021-10-21 2021-10-21 Office JOSÉ MIGUEL RAWLSBIJAL 1.2.840.114 [id number] Jodie 08:30:00 08:30:00 Visit LISBET 350.1.13.13 Seybold 1.2.7.2.686 [id number] 2021-10-14 2021-10-14 Outpatient JODIE HAMILTON [id number] Jodie 08:00:00 08:00:00 YFN Seybol d 2021-10-12 2021-10-12 Office Tee Hamilton 1.2.840.114 [id number] Jodie 14:30:00 15:00:00 Visit Yfn Ruvalcaba 350.1.13.13 Se ybold 1.2.7.2.686 [id number] 2021-09-16 2021-09-16 Outpatient LAB90 JODIE RIBERA [id number] Jodie 08:45:00 08:45:00 Seybol d 2021-09-16 2021-09-16 Office Tee Hamilton 1.2.840.114 [id number] Jodie 08:00:00 08:30:00 Visit Yfn Ruvalcaba 350.1.13.13 Se ybold 1.2.7.2.686 [id number] 2021-09-14 2021-09-14 Office Tee Hamilton 1.2.840.114 [id number] Jodie 09:00:00 09:30:00 Visit Yfn Ruvalcaba 350.1.13.13 Se ybold 1.2.7.2.686 [id number] 2021-08-30 2021-08-30 Office KOBY LUDWIN 1.2.840.114 [id number] Jodie 11:20:00 11:20:00 Visit MARQUES 350.1.13.13 Se ybold 1.2.7.2.686 [id number] 2021-08-30 2021-08-30 Outpatient JODIE RIBERA [id number] Jodie 11:15:00 11:15:00 Seybol d 2021-08-30 2021-08-30 Outpatient JODIE WHALEN [id number] Jodie 00:00:00 00:00:00 MARQUES yin 2021-08-29 2021-08-29 [facility] [id number] Univers 20:20:00 20:40:00 Care [facility] 350.1.13.10 it y [facility] 4.2.7.2.686 [place] as RAMY?BLEA [phone] [address] OFFICE [facility] 2021-08-29 2021-08-29 [facility] [id number] Univers 20:20:00 20:20:00 SACHI [facility] 2021-08-19 2021-08-19 [facility] 1.2.840.114 [id number] Univers 18:40:00 19:00:00 Care [facility] 350.1.13.10 it y of [place] 4.2.7.2.686 [place] as RAMY?BLEA [phone] [address] OFFICE [facility] 2021-08-19 2021-08-19 [facility] [id number] Univers 18:40:00 18:40:00 MARLO [facility] 2021-07-22 2021-07-24 Inpatient REID Arias, [facility] [id number] [facility] 14:35:00 15:26:00 Audencio 05 [facility] 2021-07-04 2021-07-04 Emergency X ANTONIO, [facility] ERT [id number] Univers 15:47:00 17:38:00 LAYLA walter [facility] 2021-07-04 2021-07-04 Emergency [facility] ..840.114 [id number] Univers 15:47:00 17:38:00 Layla [place] 350.1.13.10 i ty of [place] 4.2.7.2.686 [place] [facility] [phone] [address] 2021-07-04 2021-07-04 Outpatient R LIDIA, [facility] [id number] Univers 15:00:00 15:00:00 SAMANTHA gray o f [facility] 2021-05-03 2021-05-03 Outpatient YEVGENIY Paulino [id number] [facility] 07:00:00 07:00:00 Isaiah Resendiz [facility] 2021-04-22 2021-04-22 Outpatient CORRINA CORRINA ACOSTA [id number] eClinic 17:00:00 17:00:00 DAVE BROOKS 2021-04-08 2021-04-08 Outpatient Claribel DAVE [facility] [id number] Univers 17:40:00 18:27:54 JOMAR ity of [facility] 2021-04-08 2021-04-08 Urgent Marlo Valero [facility] 1.2.840.114 [id number] Univers 17:45:48 18:05:48 [facility] 350.1.13.10 it[place] of [place] 4.2.7.2.686 [place] as RAMY?BLEA [phone] Ut dic[address] MEDICAL OFFICE BUILDING 2021-04-08 2021-04-08 Orders Doctor PAM 1.2.840.114 [id number] Univers 00:00:00 00:00:00 Only Unassigned, DYLON 350.1.13.10 ity of [place] [facility] 4.2.7.2.686 Jordan as [phone] [address] 2021-03-09 2021-03-[address] [facility] [id number] Co mmon 00:00:00 00:00:00 VISIT NEW [facility] it PT LEVEL 3 - [facility] 2021-02-09 2021-02-09 Outpatient CORRINA CORRINA ACOSTA [id number] eClinic 16:00:00 16:00:00 DAVE BROOKS Results Test Description Test Time Test Comments Results Result Comments Source Tissue Exam 2022-06-30 12:54:33 Test Item Value Reference Range Interpretation Comme nts Case Report (test code = 104) Surgical Pathology Report Case: [id number] Authorizing Provider: Khalif Green MD Collected: 06/22/2022 10:58 AM Ordering Location: [facility] Received: 06/22/2022 11:03 AM SERVICES Pathologist: Fatimah Marino MD Specimens: A) - Tumor, left parietal tumor B) - Tumor, left parietal tumor ADDENDUM (test code = 3381) f3jfbMFuHTFovJI4HzKaYUYmo3vmv2TwgBFgiHH cRUsmcFVlpoIthw35gNS2hK74DU4hREFcRbM9JH VvbzB1Ozi6ZDDjXGZrbKElG621p3ild4isxuDnp ZI9vWpySTAjmaghUfQ9ECvwHFLraxtjHNx6ZUvl TINhoGZ3HMAttCCnI4PwZKBbFK0nwwn7EEG9FGz rKXAbJaC0WZVopQVwJSGfcWhtOVvde039SEQ0Wd NePGUluhRotVabnT0rIwGqVOJHNeRzXE3oXJiYP eQykDWgpgPnc2gnhoYgprDjI5ncNKGlf2Rsr2Od GgSpP3OfKM5vV5UqaRUcpu6fbCFnbV== DIAGNOSIS (test code = 3220) y1fbtTXaJERbs1smHFTujPFwIfPsZqWpGlUcNd p cdWMxIHtccnRmMVxlcGljOTYwMlxhbnNpXHNwbH SmZ4SaasbsFKqlWX1qON2nmJclkYDxqFMrKKEdY aGxi5lat504mHGpc8fbGEEGdkphxLp9qPfbP16x w5T6XmyuU00evGRgLDH9IEMmOYBkwPPuYWHdLTU 8NBOzgXPqA3xpBOXyMI1ffxzmHVgwQQshPIZojI Q1MRJpoFLfQ6BzOTNnVKxuUKWiazd6PjCtCk8oz VVunMgnWMnwCQZwLLDfAJhpEKVwZiRzFI7aFNCt RKrfSQMvZKG0DLUiqwqvuVKzQJF0cQ5jLXQykM0 qa9z5JKTmcnj7JOAfKYCDHN5giuink34iZSZSIf ErK5pKQGluSKUcTYZ5ZIOjVEXzz22oGO36YDCwn poaPPMrGh1qSODgURjeOJHyNPC7AERsnjdcuDGy QAS1tV5uRTGskASkp0mwzaiofCVxDCZqLpHxHW4 quzgiW9wjxLJyZWINBfXMQI6cC9JbZMZzRDscz6 GnWCRojX1rsuHnxTEgAOShWwHxKSHjrrGexj4kX T0qQ4WuiVj2iZ5yCKokZH45bV0dZEjtUAWmuKKd HE4bUHRZQNFvTYNNMQUys4CfxM6vREMavuZgvid mhUUtDIWvprNnwWAhyXgovtNrYOypa6VpQRorIB VbSD3sbIvbEPFfWA3pQCDyR1qbjI5tshw3FrQtE FNiUzT1BMIwwhS3Ybi5ZCWpULqcq6dku0KgPSNc DZn9rSiuNuNrDTWkc4earqUrBfFpOIGaPUWfRKX noTTnR965j7cye2vtmqXhyIZ0PWZiNAM7JUqyaf SxyzU7BNjaqVCvDtK6IHhzpsCcKWaaezUjuzYjI fd1JJUzB838CIW6aIgzd8cwMYT1LIEzKAHjKiSa Kc3pyUAqA038ZIMnODMJGDYdmEa9LOVkbbGkjwK saBEOa694U867d8fpCZNlcqQmjHbNsioov0lcR5 86OGKpfEXnkjLcWjDpGBWvkQVadDJ7HNHvVN5ul jasDGteKQdqYSMuxxI8QTXimIKrV9BvNHJeYD3c hxjaXLY9VCrmSXRpILZ2VuYcTIVlw3Imtbt5RwH bwy5ahr06SWA4c7FhiGulTPJ7MFI3RfOcQw9vzW HaBCIkIG8rFzSmbNKmRXZnvm50xXpzJQyeFST0V CVftaJmp8Qzq0zfYsPzokMjA0veZ0LmLYCgSTLn XKVsWgAbacQtd0Wzj1OvwTExtNv0e2hpVGSlVCC beIgmi0quSIT3ZTXgrMThA5nrvF6oVROeXX4blt oxe3atMLmrDCohQHTshDV0qaF9QUDxcHDcP0Rmt T3cTTRfIHucHCCqnny7OsTuIq9gaXWxeVzbHSzz YmtwYWdlXHBnbmNvbnRccGduZGVjXHBsYWluXHB sYWluXGYwXGZzMjRccWxcbGFuZzEwMzNcaGljaF qnQOfpTcMbAAZjOHvhI9yfKlHiTdToIeg9BAWbe OWbRKXeXbf9TZOvpGWoDVGNzOjbqQ6gOVVjwHqq mY8ruRJ5XDUcfgXveXBRcV1hPHSHxE6zZhG6LNG fYzd7IQM6LbGqbKFpkE1= COMMENT (test code = 3359) g7exaXRjNVGkpVI6ClZkPOCcr3keo4SwbBIdaEI jZCfsxIFjscOxjg51cJN0sY72IG4bINPbXbO7ZI MinfV0Ifs8TCXaNQAuqIFhT373k0tcb9oomsNrg HX9hFadYNEloqctUrW0UHotHUDegnijALd4HQwh RYZgwEL3HSZhsXXjJ5JwABRaHF7dyig3RBD4DYm xZFAcItQ2PLErjKKjNSSynJrzWLieq839AVD8Kf AwVZNplvZxrUomjJ4cPxMdRRELKVF1jL5wkdYpx N57JSZwmZAnmU5en4CuFSonJJvlvxPimXgjx72j ZKDXoGLvKECmxhUfhuWyvLgxlNFnY6XqqLTanPM dbNwdDMQwaUt1eSZ2VJ7zMBL4sZAjK9FqVTXjVQ Q2myHoWdZjQfBpiH4nqCZdNR2aoNddFZPuecMam 5XxaAYoz6TelIUqi5NpVZVpsKCtfWyemf2qLKBz E3ipc6WsNAW9xtTnviVtpKvvmPxnA7m9nUWxpJ1 xtMSspBC9lF5sGTOhAPNuOGZfNmSdYTYpOZDqIC 7dur4gU4FuoKm5lI1qRNwmME63zR8cQHZqldXtU ZWdWK8pLALrQaCkAR3gqJ8brQlvoM3mmVWiuRUd vKPflMEovyQpFDEbumEnvt5aLTTtqpYjjH6rttX FBMB8pHBhUFWuuTAtzSXgLFRhSMBmwxJdh5srPR UyyE65NwiyDIJeXJQMNIW4UUAlu2c1rKEtQMQtm qTfTMyvIgp3XSRqo7inIkAlUTVomfTurB2iGPsu o9OwJB04XJVpXulymUSqpJXkWSVrxUD5fFG4qW6 uIGluIDUyNSBjZWxscylccGFyXHBhciBUaGUgb3 YraeFzzRMwrD2fyK1pjuCqemBykA6bqPEfi83ug OY3BT46RIxxxZidWXQxZF6udtqbx61pLCIZKaGn Y7jYFNatFMEjXNJjHTYLfDBwz5CphFF7tIRoJDS wxqBqCn5qmCCrZzQoSlCiCJFxeWBayN4eoL5amT ZlRrVpeeXgBN8uUZEqt46qVZEqYYXrJKjlITPva 9WxwN2rmOPnpPH9c5H8KLusWiybkJHakFEylASc gx35BJG5TwBpM8llszWjIz7gCMIwMNXhXCBbJ55 jaRshgfWfYpAlmL7unV3pbHKgwBBqxPPsGFUpC0 fdhSGxyH8ocW8yFM8eMZBJNJMjUFNKWAQht2Byy C7le4yceZLlVMWdAXQxv6FnCZMqx74uUwlhK7qp ZwTiPV6hCRLxkT2tnEGgERfqWZJpRLIsWBIrVIQ rXpFGhq8tJJRdkZE2MPhcnXvfzELzOCOmfzccj2 DrGXDbLFYxQYSyXHYhOMUzI4GuPQDqb9n3vOBxg uBtMBHyPO8teoloB6inuMVeFAWxbjlbVXUcRaqd W3tvAtVrhJVuRLCnFNH5OCAcXMD8kD4iAZCpqMc 9mMRawUN0YCSwgfCyCPGucSwkpvLcOEMaD5lcmB FyeSBzdHVkaWVzLlxwYXJccGFyZFxwYXJ9 CPT Code(s) (test code = 0167) s5acdRYvFVVtqDG9SnTkFDAuk7fnc0LlvTVv cGF yJNhriKHsjoFbol34hPH3dF92KQ4lDDLbFuO6DU RfyyR8Gog2SZUsDQYhmTHyO433s7qjc3vymvTwy IG7tKyzEVQalbyoLeL8GKcyFZEtfgirSAj4IQah QGYeeEB4WYOfmPRpS4ZmLSVnXL6lsjs3RCF1JHg dYUHpWsP8LYDpxUBcOPDtqHizWYoep394HLX0Kk TpXQSdhwForGieaL9dTyYfMCZ3LENpO1xjBIM9R BNtGUvuGJctYRBbEDn1AgVjMYW1XDDgGacgMTEy cn0= CLINICAL HISTORY (test code = 2496) v3xdbZZbSXHmjWM9OnBcIMFsp5dyr7P sdHBncGF sGItrjRTeyaLaue18aWP6nV22BW7xYNIrXkG9CW TgfdX4Vhx1NWPvYTIjpNLpE776u5nue5bzshYmb WV2dTqtSAJcvjgyVoD1FKktOKQtdixzXPa3MSoc ENVyuAY0WDIamHMsU2DpIRMyBF5jjae8OBP0UDn kTKQlSfS3HLDgoTVpGMCydTmzKAesy561VJM2Vs XzZNBrtjXhuJdgjK9zVdJnLCI0CH65VQEwEU8kS ZIbIR5gyTGgw9h8mEWcZUZ1HZUewptecUHrIFNe QXhdTIE7fD2hFlarWMG7 GROSS DESCRIPTION (test code = f5odmSOnZRGznOBDFDApU1vdvrHlRVRoiEYq Z3B [id number]) yyauqZCcoUP8oNY7ruAoavXMgqIIqYK1RVNIjLc ZtEQSkrDWkcyXeKqHbFWAltOZomKQ6GIUnFB1jq frwUQieAOqxQXFqpwE7QFJaySNrG8LqYDGyQZ2x vgxoEBY2GDvsmQ9fgaVZGqlgZa6dgAKgwPkpZbE wKcGcZKFjTZScPQYzmAetEKZiFFi6gY1JKogkDL D9DSIGUxamAIIfTW9Ct2nvJJZvsMVuOZI9LVuix BEpFGTyHAGxZKe0ZNWsNXaxrIPlME5qoIbyKvql sVyig5XghPZtZHuoGFQyKVPgGAnzZDUlQO0COfH sIZu8ZyL6GmRqRWq8VLl0PC5YFhSgTBUvGuMuMl d5WSLsURu7ENtqBT3LIMX9EIXjQeN7VqB0QPDvA QLlZGNdRwYuMIXpDGVdMTivLJssxLKaRK6apUkr jHDqqvKQLlKSdK1vwc8fcVUvJD6ZOQZfrFDMSSP 7YM3vFURCKdjphFGrXIYgiIioMYgdhQ7nRM8WCO r3wgWeDTAoFmCaOPxsYFPfJJUezZCsYFYxH2Ful iRjTIZeGJAhWFWbfyMcfbIcWP0dFNWbtGw7LQBj r45ynQx0GQQyb80ivEBtQKlxVMO4tKUzAVNzDUF xVOOwMH70faOgqeJyxs7fcSioicEcwsGlEfjPFp MaLOVGEKPWIIxlVDPWE8LyOOEcXDDcIPAzSBbvB Q68exHxUvW2DO3wxUkdmgK6dDUulRRwwPSwp7Jj lC6wLIBtVWH0IZGeHsX2OGXrQmNioMBfdsKcY2n uMWrhwUByWN1wATTvgAHfVREcokNgyJMfhNU9UE FrJX15mPIshCfpYr4mLABhr7gohlRhMTA5xX8cR MgeJVZoq6CwfKOxBFAEZKCoTEHcJWHlTL1gfS6r lfpxzXcaw0KbJYdkMYR4Gu3wvUGmBGZdhuRwucN hqRSgztXwPUWwIKF5OLFODr2zZZuufMlaoR2cHO VwN64yv1KLh4QxQCHgUYvrg1gsxTjhq9IvlXVeG ZmbFNNzwLIaVBttbT4aWbOip9ykkBs6KWqtezB0 YZAvlm8BCjumNbtmpEmjd6SpsNBgSYkrPROgEXX vZAbyZFOhVI7TWnMkPFj1QzW4KmHcZWs2QYe7XM 4XNuJdPKNzRaQjBox7NXHyPDk1MTtpCX8POKY5R XljLKx8XMJ8MGSxDKOtODHqQnSaRVRnIQAnDUpd GKchqKDhYH1ffUyyvxJ9DEJoKQvsHSFjNKQ0rT8 dTxrpITNoMFehLQRhG17ma5YBu0JlHY1PTXm6kt TomxzzgY8yUWHmuuTyTEvhxKGzI3jpBcNeZZRBA WNlaXZlZCBmcmVzaCBsYWJlbGVkIHdpdGggdGhl VILdcUguqoRbE0S9phUdMQ9dLWBgHZBlM0HtUMZ gX51aVPNbfE7pQDLwLH7bSRG3sQ4htnXyhDEaBQ O2MGodMe28DDtyLIEfsCVmQ5xaFJrrsLExf4Jxp BRwbTgpnYHdL2VxcK33iAg3BWznb4mnM3q2pCgp UptuzXT1kQLgfKDhDsUbM87egoIlDoDwLAteYHK pZKNzbSXiJEftGVQxqrcgtUh5RHZeT0Bxv47dKC Y5blUjVXGbEYcea11mbVtdSQFtBNNjr2ScqYWzb 1EohIUhCW3pZZKouJQgv9SnhFS1zDNzQOUmB2Sw w60hGKGqQSZpvCVvsER4ZGGepW6nGaFoHxFmFwe bJTOcPFgvsYEeVD6SB9ueuSXwMMTEdmE3lrqfLB vSEVGKMYAfFYVTJDntjD7XYNPhIOveZZGjgBNDC RR4RZ2hMJdrlNYpbthqQZMiS4JsB0IatcVmsJNz QNNyfaJge8atHYQ5OUAjyTOkuGSxKsYnHyydYNF 8UJptu7qxXQT1IDCflWPdcIHiLAsqAmOtTcjyDZ BjA0VtM6SffkM5WDx0 INTRAOPERATIVE CONSULTATION (test code = z5jwwJFtEWSrt IS4FqVvDBHxp8pia0LwnXFsvWG [id number]) cQMhcxDLtmoUcti84gNO0kK49HG0hYOUwIiW0SJ MlfvB4Pcn1YZEdVCQwtGRsX312c2spu5duacVcn YO5hTiaYWInsqxcYpI9DSywVPIjxjwcSOy4QKwf SDPgvYA4YIHehVInU6SbINPtBS8iipd9QCM2XFs zKBZgHaF2HYLkaEFvDFNqzRmvPNieg199EIC6Oq ZdUKNxcaW9PBjzKZZnX7TrX0BkZNmqGAG9ZZBzA JQaSSGcEBRzBXQxHMzkbqA3t8wuZQSouMAuRPH5 IRemeZZiIWQeGMBzJIgsExMCTwNpXeD7GBT6DVf aZzZ9QHp6CYTHDrJzNfUyBhI9YaB2SQXwJBo5QL x3BCvMPrK4Sle0DbU4AlLfXBWeOJKaEQv9WPBkU RjhoUUiMJNlSIMmHCbaYEtuE03lnCgoxT8aUtXy QUQYZzADkW4pot4qrXHzQVKjTlJbRaJFEtVXHbJ PDfjzXLUZHIXLKTWFRLVUDIKVTF4FOalaFuyXVY CLIttbCJNzqLJkDW3aPBXwiD3pkT5tVRgtLLWkl LDvIWEijN1ivJLkJOC7UEWxDrVXoIZ3rrUOsu7m VeNtZT7aESNaIDMlMlXaJJFrPJF9QnYrjEkfKBR jZ7YpY1YkdsX0e6yieUkjy7JokFGfXQ6mvGCjoM == MICROSCOPIC DESCRIPTION (test code = z5qbjCWtZJLrmZB2MzWmGEEnr6zfl7 [facility] [facility] pANrmjYKhyiKctd94nSW5aE40TO5zFSRhHdG1RY TjhgQ1Qxr7GCUsSXQpvTQfR503t0rrs1liyzDqz JO2wWxeUOSyakmyJgX7XBdlHQVpmpzqBQy4GKwa PXIzlUL5ZKSxtAOgE6WpFKFdXD5zjdm4QZC8VNe aZRWgTpU5KGOotVSxXCKtpVxpGTdvm027LNL6Xz UlZRWeauEomLjdjT3uGwNpPDQCXPVya9FcZTCqp GFyfQ== SPECIAL STUDIES (test code = 3376) o0frkZQeTDEji4scUMHsoDYaPaIqEbJi ZnRuYmp jsQNqOJmjsuSfHLphe2IxU3JpAsBiJXiqmqYhHR UtFhqgiqykWVCcAUQ1xlSeBHKgFLxkMGByTRwnA b6pgJFoaYmlOrJlFNZly1iyriUEkjluqLf3c2ik FPWpCnK3qLJdEYezK6cuzaPjcQIxU1OpeTJfpYg 2j4avXoLaIpJ9eAUeHZmhY3xdowQcyYIlWWRxQI p0nO81OSSusE4caAMxFOvmozZvSlA5YRdmNNDzY nO4OSSmhLTlJKQzD3taSIUcWLddMBByZJqfvBMl MVC4gPpbg7B1mYBnfKQzeGsrTvSxFoRuJmLKk4V dAIp6qNdiK2XnGYPaXwJ5cTHaASWkPMxhPEGxXZ UhsiE5iLmbxyQfy01owYJsLRXiBQUhPeJuhKzaL ORhGNDEz4YvtQvrZBP1qWu3nDjuAzmcSWB0Ztk6 JI7rnw01quk5oZrvTDSzudknDiN5SJvmWZSciak sKPr1HZbxBAAtjPX8HHFogYPyU8WwXHIuMZ8pfx u7SAC5QYyuQCBnDoU4GEMcqCGxWAFsjGeaEDszu 146XXR9JzVtLZ7mB0Nep8I7zF7chYTdLZJkySPh RdSjWMPvsj4cyECnAMhmp7OtXBD2lnN3iJRmyIO xBJStUN00Lupbw6XeNrwbz1OsY59rrXH7KOvko1 upKI5dEyM6dfAqBTknm9ymnO9dXlY6YQcrUV2yP W7nTCSsmB8oqszyEBYgGqHrirsoDTSyrPevosHn Tj2mjGrcBMO7BJicL7wmdU2pZbH8JTqnB7omiQ5 oBLo9LCkxjXN8HNZfoH9aHW7zedtck1pxCPngJA xyFTRgvmT4hdS4RJEseWLxQ2GhgC1mJMMlWA8wc vzkx8sqAPM9EZraSTKvJRY0PeKoFLByv4Qiqyt0 XqSsl3WhgCAqOFdtJ34nw560FHDrsyRwH6lejAP arhrlgHMhgqeeQBteblM8AZEnGYOqYIctXGEkJX ZzMjJcbGFuZzEwMzNcaGljaFxmMVxkYmNoXGYxX GviF8ekQoFlP8MhSPMlFyTfXUpsFZznjRGtuZBv bXN0eU7aPI3jUOKatJLlN2YuMNFsnzObaLUlWBA 8eHSawGGsGF5qMPlzgWElw6hhg3IaQ3fgaVpkxH J6OC9wKPIaGNCoLEukh2InwS4nBlsyzURwkpglQ LonpqSbNRjdhlrrDRKuHLbvP7kfRfEeVMVxfYfr XMmmc3NiKUGhTERbEvhrwyPqIJd6cvOwTPSyzvo sDTIrtNafjN4yCjUhRnHmXzixHK5xLEViS6kzmD EiEDCqPYYdF0tsGlDxqT3icMmvRPmqQtXuFwDxI kAGg067qo3eVHOieSMkasJMfNBirV0mIMnzJYab TQelgAJvLYilc1wcNBXmi6h6gKCnPGAybyIkm6f fOMbjwtWsZFSfzIQtvASiIRHme61bPEtklIjffE jyDPXeh1PffWhwp7BwKqCuIWbur0VrB17yyBRhx EBbvJdyFDPswsCaNSFdc27zk7ezDBEyLjX7xEOn oBZ8yOAloNSrx7YikQqxQLYfl7aqKZHhol2sqik xsIZwm3CnwH7aboilPEtqjLQvqiYgSEDjf4h0eD WvLHCdXGDhWLysoQm8NQAbm130qk5ugyR1oOUzQ PX3YOoxNMWxYFPanoEgZWQecLIqvUImJXHnGMgi XGYxXGZzMjJcbGFuZzEwMzNcaGljaFxmMVxkYmN lBZZdDMxxL4uwLmXbL5IdYMEuDuGrcXDnM4fvjD FyXHBsYWluXGYxXGZzMjJcbGFuZzEwMzNcaGlja EhmBZgvTxTyOZSqUTshC4jhVqIrB8CvYGNkDfKm DXzuzZPjgghwYScbvuAnRBuazoarHHSpBXmgY7s tStPgTUOwbExdDLnys1RlMQRgHZOeMwytdzQtOD a5xcWsVLRfazdzqTIevhzzWXrsqwKaEVoginixM MQpNCvyA1bmPuGkEBUqgTlwUTmum6OzTRYaLGCx SiiejqVgKYiwcMZkz8toc9RbR5xtgNyzcVI6PHM iH6mwpMOhyYB1GLO7rI9eHPulosLcHGIon6TtKJ GgULPzOwB8qV5wOVS6ZsESbCjaKTYoYZabWKDqM GZzMjJcbGFuZzEwMzNcaGljaFxmMVxkYmNoXGYx VCncM0kgOcWxC6UrWUKmUkCkaZoqWHkrGEu8Dbt quREhsnnsYCraohYhWWbmfwkrABTgGHiqM0koPt GbEYEflGflGLfrv7ZbSDScEAIfTfsfurTfZAEcY EIhnPLafAQWLD02AIUlVVGyiAcbrL6iiQRVGQTd kdX7h2Z6STbsASTlQYa0OVetzoUnHWDtrT2xXMU jKO4oUVy9hgOhRJQkr9GcIF4yZNAjxJJdZII7YB Bsq6GcN6Gfb4TxTJNtBIDeiy6sizUkZzJIiYIyX JPhkv11HTYvTV1rK5ibPIEnAIHtplFieXMog3Nv ZDPpsAM8eQGtWW0JTjSJq27fCYHaWRKSddAmHAN krIalqQM0azO0xJ4fEuSGkAAqZjPDXUesicWaGK Fngi4skfPtETDbODDpu4GzvQFlaWKwmgEsH1Dpu 6ZcZCLvhd17AZropPRbuh71EL1eZ6Tnl5OjgS2d OGdnIXXkk9XleJKwxIZnNEHfy0MrF3bjpqqfANz vxLHvaB3yCRBgURs6GVSxa0JuYUHzy1MeYsSnir QuBMJeJKOsQHZmoY92TSN3kCkiaIndqlGoLZ5xR UEnbrZiYUWmNCZmeL3tQPjtbvGwZMUgjjL2p6D5 RBrtJFDvdyFsPoeyMLO2kxFtdmC3gWOdS0gzmrn zLDtxIWPzl2RdpJ3gzQCMpAQlm6UfyQNivMEFyO LtXJ1hfnQcYM3iXZY4YWxqHKBXDXQcRZkiVLLoN UJ8UIbrLsrpNFX5qzIvHLWpg4IhCAqjS0qfS42a sKthwLy9jLJejVnplBNlyWClQMQzyzZ6a0V9FCF rr0GoosheNUNbQKrtJQOsVDUmSiKdkEMcByEcLa QqkXxymOmaNwvnAbLtEPSbCShjO6onVoIeMrUaU cdkTIS5gN== Gross assessment was performed at (test [facility] enter, code = 2777) Department of Pathology, [address] [place] [address], Technical component was performed at [facility] er, (test code = 2778) Department of Pathology, [address] [place] [id number], Professional component was performed at [facility] enter, (test code = 2779) Department of Pathology, [address] [place] [address], [facility] [place] [id number] 12:54:33 Test Item Value Reference Range Interpretation Comments Case Report (test code Surgical Pathology = 104) Report Case: [id number] Authorizing Provider: Khalif Green MD Collected: 06/22/2022 10:58 AM Ordering Location: [facility] Received: 06/22/2022 11:03 AM SERVICES Pathologist: Fatimah Marino MD Specimens: A) - Tumor, left parietal tumor B) - Tumor, left parietal tumor ADDENDUM (test code = [id number] 3381) Wqx3xtw1JngQRpsOZbJIii rGUvnkWrof66sWF3eF60ZS 4rBFHzXvI7LLZpvhB4Mhk0 GUGjMEDewFAgI906x9iej3 rnlsEloIH1qKjoJJVhzvda PaR9ECncFSOixgnpRRa9VA crWHSwsNU8OAFfaHQkP1Gz ZJAeSH4pivh9ZRC8SFvcDV SeCoB7OBKnmYUxDVZzgScw AHuvd014IYY8RoWrDRLkcl BhfWlzaW8hKdCdNUEKGeYt ZD5gDFeBHpJclVTldaRgq3 zmyzDdamViA5dpQPIsc5Uj m6ImIoAsF5DjOB2gP5EdcP Dfnn8rvTLqnA== DIAGNOSIS (test code = v5szmHAbJATjd5zoAPHbpA 3220) FuZzEwMzNcZnRuYmpcdWMx IHtccnRmMVxlcGljOTYwMl hxcjFkVVZbzGNdH3Lbjnid HMeeRP8mQF7veWuizLHwhG OtFEEuBqHpy5hlh858tGZh a0tzDOWWhtvgfOb7iBqzE1 5tq8Z7CzyyU85dqUDyZVZ3 HLByHSIdcXSpFQNpRLL0NQ KgtVIgE6iyIUPxTW8ijwlg OGslEMldHTWeiOK2XFIaeJ JrP3BgXHIoHLyuLCTtvos4 PvOlZl7yyVJhtIrdWLapPB IuJPAmFSktLWChKyErJD8h KGQmPWllWFOcVEU2AEYeti tbhRMvZDA6pR0eKBKjaO6n i9c5UDPwjbg7CLJhWOUIOE 8jxbppr70cISPSNgFwE7rM USvjLNUcAOT3HRCsKHGzl4 2mXW90LZYvdxlxXRScVq5w AUYlMZphQGNtURP3VHXcue qzpNMlVJX5qO3xMHYxqOFc t0aemarhkLVrYXTfSuTnVL 7mmpqwL6qxyPYyTGYJLbUN XD5wM4UpOPUyKHzoz4NxXL VyeT3jgyGpjCEgBWRuCaQd DHTeanFopd2hUC3xU2FvpW a8wE3cOIteMD84uN4lBCnj MUOmsPNrOF7xMQGGTZAvFO GKWFOpa5TajP1gVRRxduDn bmdccGFyXHBhcmRccGFyfX xxbaGvDDcsi2WzOYhwNBJu ON7jsUgiMGVuCV3dCOEuV7 xpyI6kkwf1FoPvENCqDwH2 IZNxmlH4Sya9VOKuJJntj9 rce7VbJIKkPLd4iXmhFfEk HFEgs4ffghJnGeUbYTTmKH OfNTDrqMTsP624l8zbl7ok vhNpwTJ8XCCnMIG6VMnwss OidqK4DBogwUNyRpB0PKud lnYuTQpkmlWpjxPyIat8PF CbB826WGA5gTshy1yxBRQ9 FCZnFYIvTkStLo7fnWLaT8 28OKXcBRNIYSXypHc1NCJt nuSifrOcgBLEp607P908z8 bvQDDrvmKpsXeNpasaj7pr X979GHAqbFWxwlXgTtIvGI BlvJKvgPT0MUZqXI2cplpj XGkmSIgiDBQzomE7WTHgmU DmF1NlIZRdLA9ranimDGW5 SIvdMLBfWTD0XmHaQKZcr5 Nhezx7OpSirj2tun64NXF9 m2QsiDptXNH7IWY7DvUqWj 2czDCdPQNqNW0kTiBzaHVs ZCOayx19pZnhHNbaGAG7DQ MwblPjm6Nvn7ngQlMvihRo Z7kgM0XpNFShNBFvQFCjHz IoqdHll7Eni0SruAUxbUo6 n8iqTFKpDUYlfJzdx5xzJP I4QIReyWQhS9elwD6zZFCt QM9moywck6kqRBxwKWjjKB CwgYS1xwC2YWOjdQWyU6We uW0rFURnJFkoQQXyefh8Qj UiRn0dyYSfxGdcXPajYmom YWdlXHBnbmNvbnRccGduZG VjXHBsYWluXHBsYWluXGYw XGZzMjRccWxcbGFuZzEwMz NcaGljaFxmMVxkYmNoXGYx ATuvB5csDtNtNyRiKid5KL EeaJKcUPYjTph2BNSuxZXv VNHTaAfsqQ4hGBRbaVuyxF 6mfGN9NTLkfsLioNCSfV2p ELLMqN3pZaM8GBQwRda6HW G3KfOoeCXluT6= COMMENT (test code = r5ufpFAiJRXfuLD1YlKmRS 9980) Yev0lkr0KkmMXhyQVjKPeu xOEuttKwbj43hGD8bG23HW 1rPKJiKpP3GMUckwA7Jqb1 IFGfTNLnfTGqF170v4aoj3 fhptLplZT8gYshYKKqlzip GzP6UEjuSZIuwblaLNo8NL dhMUHfbUK9ZOYcjTVuO9Cn RRTkQM5cfqd5BFR0OEriYY PqCxI1ORTgkQOnRPZntVgf JAwlu823NCQ1MtAeATVdfs RyvVuseY7sVxAhKQDPCIF8 qX6ywlLyxU20OIYxqVKumV 2pn5RjTGgyTTvgphHvoZvf t37bJBMHkQGaTFOgvcBvdr KdqBqelCXkX2UwoMWxmFRw aMvcKUVbhZb3gNX4SO6tJY T9tBDcF9NnAVOvZQB6haLn SeJaWgQwqZ5gdDMpOZ0raZ ztNTFearNxu5ZbsSUtk9Gn mPSdg5KhPPFgqOSrhUbgib 4hYGDuO3hdc3RuTUS7zqEk omNoqZbylTatP5u6cYXwoC 9ipUDgqBB3cZ0zCCNnTHCd TJEwMzLaITPeSMDiMP9eqv 9dF9UxgBt3jQ9sBRjrNR59 vH3sKXFokhAgFSWxBY2oVM FoYjQvHW0npX7viMiamP3f aGVtaWNhbCBzdGFpbnMgKH QnrjIqdz6pPTIckqAoiX0q knQAAVF7jZJpEVXwpJKsqZ MdUXVuKIAbebZsb4alIGAg gG68RmbwBZTmMSPVAFF7GL Ijq9g7pGPcCBWmzeEmGCtz Nyg5PSLqz8gdZzIcVDOtkx JkbK3vIGwht7HaZK37LHGm DnzcuNGbeOLqTTKokEF6bY L8hU1mVNsfYTCfXEEwHXlt cylccGFyXHBhciBUaGUgb3 LrcdKgyWKpvN4szM4nskPt wdVkjL1xjBWmi69ciRM0VI 63SZnixFeoOYOqYA4bvooh r44lTTETDeEcA0cGLAltWE SsHTIaXVBUpMVjv0IzyIO4 vDJnAAUiazRzFr6dbJHpLk EpSkSbLSXtrPZqaJ2rsX3h iSEmPqHzqwImIX4vLBXas3 2gYFPkEGAbJElwIIQbp9Bk aP0eaNGauDT3m5B7LVmeGo ypeJSxwFKutRXels84TWE5 HlVwM6ngstMiGg7xGLRmPN PpRGEdG16bsGdwuzFhSoOg gV0duN7oaYYemFWhvYNeGH ZrI0vpeHMqzJ8qxV9uUV6l NLVJFQUxCOMMWSIck1XuuY 8aw0vuoCArVENwWMExd1Ut EEMyg08gKhktC4niCfAuFQ 7qVBDvyQ1wfYAjEMfwTFPl RPMwCVLpHIGaIkWMae8sRH EwsQU2XGohqXzkvLIbYOTt mslch4QlLYRoRHMeGBKlLE RtDSAoW2UxZMPig7w7kCHt xbLrNBGqNV2rxmcmK1ijcU FzQEEkeawsKWIhFceuZ0aw FnYldQPkGRUtHZJ1UFQkWD V8oE6cQZWvuTw7nUAsdQK4 IGZvciBhZGRpdGlvbmFsIG DcS5npgRDqdENilABamWWh LlxwYXJccGFyZFxwYXJ9 CPT Code(s) (test code r2unzMUlXNFwqMI8BmSjGR = 3351) Tis7ccw1HxvCRycNIbZMuu vTZtduOxdc89wZE0kT79OY 7kEOJbLkX2JUGbvzR2Zmt3 MWQnAMApqARhO096q9jro8 vzqzKkxQD3aMwyIUDalkzx XfR5JApmMBZeofyiNOf7DW nzTJWwhEZ3NAMrqMYdW2Aj VVTkYG5eebo0QBD5CTjmLU QrMxW0GCAopCTkPWAtmMbm YEpge118TEQ1WyIeBDMhhi MokFtbgK6bCmAdOIH4BATr F3ejIBG1XOBsQPgqMGrkDZ YaDVu9GgRuJWX5UWMaHnuq XHBhcn0= CLINICAL HISTORY (test e6edjTOhLQCbtTD0AeTgED code = 3356) Pjq1ivi3TsfBNkjDZcTHta yDYafhCqys05lFT8mL34HN 5uIBQqGrA0KKElugX8Emy3 KXMrKWLzmVIdO826q4hgj2 hbizTcrUM7bDyjQFBrrfxz XyT6CPywFLVjymdqZDf5ZM coANQvfJH9HUVyqJAtF7Bg XURsQE5jkgd3OOG8QYfwWO JqOoG1NFOxjXVhGVYixMhn LLegg946CMQ7KtUfJMPbgm TdnHfrgJ6yWtQqBZH2HJ60 IBHvGW0gAYOjSL7ptPNzy7 s1rKCrBPC2SWVubkelgYRv JGNeUUpsDIT7pG8kSijdDF J9 GROSS DESCRIPTION (test h9rhwSNzUPBzoFDVXOTkS8 code = [id number]) vzjlBnAWZwnYEwM4Zfdget YFcxRF3wLN4hyRovhBSjsE NpWR0FGTFtSfJlFUGuxVWf wcIrDnSvPFWtsVTabNJ8ZD WhDR5diuhySQayEAvzHEUh oeN6WUVniRVdG3XeMNQjXM 4zckuiJEQ8GKygzE0nrmCB JhtmVl6glHUkdYgfCpAiQh NoYXJzZXQwXGZuaWwgQXJp BRv3gX6PQlkmRVN2GOHWOn rfHMQmDR3Js5tdZMOpfBQe SNA6FMsqyZTpLUPoKXQaDE i4AKXfOTkfzZBlMZ8doYfe KkwroPowz2QneIGzUDlaBJ QnEJOrNXcqCCNxID5RMlEu SRy0TxO3QpCrWFd9OJc2WZ 0PNgKbRIVaWnDtKts1HJIt PGm1TQcfJY5WEFE4QAZuSn Y8ScA6ZMHoLFXvBZDlDjMh XGYgQXJpYWwgXFxmbCBcXG 2fwVfjtEJysmNPZgGOiP0z jx9egHTfCV4NZQJdgIFLPE E6RS4mHYPZLkmxnDKwWBJo gOmvKKqjxA9gYY9BQIf6uc NoXGZzMjAgVGhlIHNwZWNp tVMeYWNyW3TzlsFrUJRsMT HzPPGrnmHzoiPtJM5dRWIm qIg9DWCxf10zvIl3JKUdb7 7akBDhNFgoDTI2vQKaOFIq ZZKeIHXdDJ95weSdscTbgd 1hdGlvbiBhbmQgIkxFRlQg VRJKNKHEFUyqXCZQT9FxNQ LxQZMzNROiPIoiVO97mzDi IhE0OS2avOynfrK3sKEzyE EjjDNfw6QtvS4rBFLiLNB7 HYRjExJ9HTXkIxGhsMKxjp IfU6jmDKjskLHnRP1oEBYk kTDpFYFdiaZkmQFxrGG6YH SuSK37iLEsrRlfQe3xVACu m3szizDcEQK9mV6dTVyzRK Yjo9CgyTKmDXQYHSKaULZi PEBgSF3nqI3ziphmbAwjf2 FnFSotCPS5Zf9qrOFkAZJh bnRpcmVseSBpbiBjYXNzZX E2VMQQZm2xCEpdgGkbrO8q XXAkO36dv3LNd1AmMRRwSY zqc8xhrPwpa8MheEOiPVna GZUipWIsAZqcqZ3vKkIpk2 flgYu2BWgxkmD0FVFkld3X PlluBegaaYpal9IjsAOyGJ kuABLiNJJcVYydSPMiJF7D QtAgWWl6EjM4VsBeCOx4AO e8QF4SVwWlSWFqApZfUxb6 PKNvIRb6FRzzWN3NURF7RW eoIWz7GWG7LQJnOZLnLCAi MiBcXGYgQXJpYWwgXFxmbC LkIS2mpWuylkC7HHApPEwg XOWxUMH5vE8wBzzaMGUiWV omDWWjI32qk5HKz5VkNY5L USq4lfVjlwcnkD6vHSTywx GtQGwsePYxO5agAlIbOKLB ZWNlaXZlZCBmcmVzaCBsYW JlbGVkIHdpdGggdGhlIHBh hAxkdlSiP1N7cmBcRW2yRC OiJRNyB0TzFHEuS76hCESo yP2rLDHdQY1qIGT7gI5slh GkwKZsRCZ4PZuqLj61RTms NTLcoOOiX2ukMRvglKBoc2 MhuPPhkDvdlFLfL4HafG03 lTn6NTbnj9lcB7v2pEzeMk ipzIL0sBKfsRNvFxUdW82f bnRzLiAgVGhlIHNwZWNpbW SxORykLPAhzagatFm8HXFe K0Het43yFHO9wiEpZBDoOS vhw98rtBpzJPRsNXJle8Ux eAHao9CowTThUW0mKDYubV Cyt6TouTP4xRNsIBIlB8Gd c23nKPMoIVRyyXLekSE1MX XmxK0aWfErGfCrYvvjLYRs BCidkUFgZC8QB4mnqMUrKJ BRctO9ycagEXqVDNZCRPCj RQNHZCypfH0QJRYpBSmdUG LgaNYOOYJ5FL3bPRqekNCx apdmVIZoC8KhL6EtdyGcnG ElRXQdlzVbs9eoBQZ4BDJo oCPllCXwBbQrWzdaJEK1BH ukn2jlGEC0IFAwlRLypKXd CSipDfEgDbhkZODyF1VoJ3 OypyX9KJw2 INTRAOPERATIVE h9zmaTBtCGPrvNM4PxZaAF CONSULTATION (test code Wct8exw6OkmCAoxWXkKSzt = [id number]) kINyujPuam73wLZ0cB26XP 4lHTQqUtP0YFPdonD2Lxj1 FZImLGFdkSWhQ769t1bhj7 jsrmRulYW8iQiaTVIaouge SwR6HXebYYTdtzlvANe4RE qmGHIjrRS4REPxjRLyM2Vq TPAfEM7inot1YFU8VHtvZB WbSfL7JMWyhDGzAEEowViw VMyyp685RGH4MmVaOIPujr X3RTtqNWDoM2AxP2OrUXwi ZMT0NKXnDWTxQMRpBXHkQR IwGRjcfnI8e8mlDCNmhCIk JVE7NLcxtQYwAFKeFNJyVW jiFnVCUgWuSxD6VGC1ZVmv OtR7DXv5CUKHRmGkHeKaIz R5HiL5UADiDMf7ZEs4CUbK LpF9Zzv4JoG4BbTfPHOrEK RuEWa2GWSzPLswkQCmTNFq XQPdHAsmDWmoI38biAivoI 8nCmLkYOISYpPHaJ8vmw0w cGFyXGZzMjAgRlNBLiBCUk FJTiwgTEVGVCBQQVJJRVRB QOSRVQ2ZXmntOhvLDNRKPq ibFTHdjFTxDF0iYMXcgW1x qX2xTBszDPFoqWFkILGlrS 0ipTAaRDW4WAOjJqVHkSX8 imPNva4mPpSgNT3hQKIfZL InTfRkHXOkRSI9KzDrsTkq LRGxX6WcN2PhzaH9w4rdxL kdx0GesQRyXP3hnPNhpY== MICROSCOPIC DESCRIPTION k6olhSSzPDZgkLV2EaFwIZ (test code = 3371) Wcl3xvi2CkxJNhoJIqUWzo tAIjreNocr11lZP3nH45PD 4lPZEpTvW0BBToiyM9Azl0 RRGmFGMftKQvX498l5tgc4 abofAhgOP9lWgwQGDipiap OeO5PMllSOEjtahxXJh2BI jtSWWzyCD6QPSbfVWeK7Oz XLBrZF9qrxr2IOK9XJojBU ZbSfT4VAInlZWwDNGhkXxg TQbin030DUW1WuYdWWWffn XuyVnqsJ7jOoKqXGFOGPEs e3GdNXCugUKftQ== SPECIAL STUDIES (test v1gmpAHdANXop7taLNSziQ code = 3376) FuZzEwMzNcZnRuYmpcdWMx DZhcuqSyNGasp7KfE4ZtVq AwMFxhbnNpXGRlZmxhbmcx SLNuFUO2twArJMTkUMbnYX DgVIlcEk5siZKdoJteEfHm IFTfc5eduqMUlfkdyAt1c7 ajJYZrFvR6rGDiBWfgL1ad dnVlqYMgD1TkuMOtoPq3s4 osTyNgSyG5kJEdPRjeC5zi csVhqZMjCRHuXWv1eO40DX UyyR2eeGKjPBgnimZnZvA5 ALbzQXUsQkP2JEVmqUVsRQ CbJ8ziHMDjAXrwOPXcVBvv pIAxAHZ1dFred5F1jRIwkV IgwZwtOnWxCpYcXmIIt0Bh KLn1eOtrK0BsTWEuPsL9qP QgUGFyYWdyYXBoIEZvbnQ7 sUwnrvPzm07wqGPxCUEbZZ YlYkJrpPhgNTCoXDVPk9Cm sXyzVUD8rGt5bMmvTyowKR Q3Atc8BF1gvm26vqb9uArx MXQfgtgyNtR0MThtNCBxzx gzYCs4TQloZFOmtGZ9CCUt rWKmG7IcVJIkZD7mano1ES T3YCcmXOVyLmO2SPEsqNDo PAPdfOkiXUaig191OLH9Ei ShYW1jI0Vdg7Y8eY8ezLZt BOPypIThZsWiNAOkbl2izU HdLCovw2LpKFG6rbH3vAFc bWUpKBFeBV47Yhezt3TpIs dwe7UeF74hbIA3UEdzw8xc EA8yQqX0uqCnFBmvw7irjP 3rXdM7TFcyZA9hVD4bIUMb wP3jndzhKHVuBvVtkhraYL KsaKceqkZvCu9djKirTQV0 TPaoU3xafX4hDwM9MHreO2 aigC3mPPh2YJsxsHS1XRLt gD4pCM7sjgizi0qgDEdbRJ ayJNKurnG3xcP8QCLxoCAw Z4TszC6rGVZfRU8shcxvr4 uwLTD3IHsqGJPoCYG0YeFe MHXoo7Kknpx1KqEvg8LrqC IvGOhxL79vn504USEsvmMx Z1tzcJYkfrxevOPpkvofDL gclpK8STEhVJOjELfiEZYi XGZzMjJcbGFuZzEwMzNcaG ljaFxmMVxkYmNoXGYxXGxv X7ncVpBiT8OgUOLcRaVyPK mnVDmnrFLrqQCrkCB1kV8o ZX5rQEVwxTOsW1DdLNKpni SicYCzIMH0lRRysNGkPF2i BCnrmWIce6mqm4WwD2kteV nacMX7AU1uACHaICNuOOwl f6FobP9vRnfwiBUtqnrpSO xmczIyXGxhbmcxMDMzXGhp P0kdLoYsSNNgoDnoSSdso1 NoXGYxXGNmMlxmczIyXGx0 cmNoXHBhclxwYXJccGxhaW 7xImYnQfSqArplUS4oWOQa O9tsvEJcKQPiJKFkL2yqYj SnhZ7jnCtdVVtmCpRmVkQd WqYJo181ig4yZSFkbOCklt UByAOaxZ5kVYgpYEgzYZyl lEQnOOqxe8tyJZRug2s2rF ZxPQNjqoRxf3pbETzredZk FNTnqUHvsGKmWTJjx66lZP iwlDjulCouEFBec8FykMml k9TuJbNrJRcxv6RcB88coX JvbCBzbGlkZXMgcnVuIGFs o60th3cfSGGfKdI8aXDcvB G1lNXtoRIio4NwiTvwCXIa v3hkZYDypv0svxcpzPFed0 OhyS9iksuxVVdslGKxylJy AQLxr7z6lLSxDRIoDYRkTJ zaiDh2AMLev721gc1dbeB0 oJMoDIT2LXhlBSBfDUHxuz UgZXZhbHVhdGVkXHBsYWlu XGYxXGZzMjJcFuZzEwz NcaGljaFxmMVxkYmNoXGYx OWlmD6ikSaMmB6SzTQXgSu HaxJTjY5xtqBMzRAGoJKpi XGYxXGZzMjJcUnion County General HospitalZzSt. [facility] Partnersz NcaGljaFxmMVxkYmNoXGYx EVflF9mnDqEzL9DcLJHeZj IgIFxwbGFpblxmMVxmczIy JGninvsrCAPgGDamM0paRm KgFVHexKgeVGfto4SiPQQg NPIpVmqbtdKmHGj0wzMgXD BhclxwbGFpblxmMVxmczIy VEycndkuAUMuBBkhW7yzIh DzWIHtcTcmACoxa2CmIQBg XGNmMlxmczIyIEltbXVub2 akk6ZtN5ycySnvvIL3NQBv Y9opcDXdoUK4ZDC7nH5qSB sievImDGRtg3ZoNQGqFUHh FgW8aF0zBZE9RrFUmZjuSJ BsYWluXGYxXGZzMjJcbGFu ZzEwMzNcaGljaFxmMVxkYm MuIVDlBOuiS5tqXeIpO7Tq MDZrSsYprVokVJfrDNg4Bi xwbGFpblxmMVxmczIyXGxh jmzuYDRhXHlkP3btYiAiRC WrlOdmVPeoq7PsHMKnZTSf MlxmczIyIHMgTWVkaWNhbC UPCH63WZDfAGRyrSlnsY5d iUFQXMPznwK5w8U6NNakHO BnNUn3FCrplrSiGBIrqY7n BNOiAN2hMPh8gvQsTKZkv1 HbOG4aLTDfbWXaUBD6BTGy e5LgX5Rbe1GqBXJuYNHnfl 1edlOqQjSNgKGkNVDhbm88 JPUqDS3xS3fjSKArFSCgpe ScmPDci0QyCUQdvJN9oVQy TZ2KTmTZl64oKJArDBUTli XeTMLbkAzmmDL9wlX0bV6y LiBUaGUgRkRBIGhhcyBkZX Vrtt9aggIuPDMzHHVxc7Xa rBTxaARjocJvE3Xnd5WdJJ Evck00NBxkeDRklv84CV9n Z4Uuy0MhxU8gAJpvZVXqm6 CjkFHixAWfBDOnh5KhM0wb woipNWdrpHOhuM5bVJBsGE s5OJGny1NeDZOuq4QrXbRg dxOiHRAkAWFwSUJskI56DF V7fOszsXwduuNcLD8nZZXg arKaZSXpLOJoaZ8hKDkvfa YgWKUjtfW9g4B9XMdbPSVr vuJkYiebCHW7vnVmvbW3cW PnM4ihstodNAacVHApw4Qm iU3doLLBpNGxj1NpmJGwdY WSzLEtOR0rfdMgDE1tWHW5 ODggKENMSUEtODgpIGFzIH J5FPvwWgenWNJ7stEaMKUb y2DbWJjkJ0zbD24bvKvmuS u4iUJllBvczPYhjCYxJADz wtP8a3G9HHQwg7JebgloTL BsYWluXGYyXGZzMjJcbGFu ZzEwMzNcaGljaFxmMlxkYm WsHEZfZYzlI3kwCwAnPmBi IayqEEL0pA== Gross assessment was [facility] performed at ([facility], = 2777) Department of Pathology, [address] [place] [address], Technical component was [facility] performed at ([facility], = 2778) Department of Pathology, [address] [place], [place] [id number], Professional component [facility] was performed at ([facility], code = 2779) Department of Pathology, [address] [place] [address], [facility] [id number] 12:54:33Surgical Pathology Report Case: [id number] Authorizing Provider: Khalif Green MD Collected: 0:58 AM Ordering Location: [facility] Received: 06/22/2022 11:03 AM SERVICES Pathologist:Fatimah Marino MD Specimens: A) - Tumor, left parietal tumor B) - Tumor, left parietal tumor AFB and GMS stains show no acid- fast or fungal organisms.Addendum electronically signed by Fatimah Marino MD on 06/30/2022 at 12:54 PMA. Brain, left parietal tumor, biopsy: - Meningioma, HYDRATE THICKENER OPERATOR WHO grade 1; seecommentB. Brain, left parietal tumor, excision: - Meningioma, HYDRATE THICKENER OPERATOR WHO grade 1; see comment - Rare non-necrotizing granuloma - AFB and GMS stains pending Signing Pathologist Direct Phone Line: [phone] signed by Fatimah Marino MD on 06/28/2022 at 3:18 PMSections show a meningothelial neoplasm. There is no significant mitotic activity or atypical features. Brain parenchyma is not present for evaluation. Foci of abundant lymphocytic inflammation are seen. A rare nonnecrotizing granuloma is seen on B2. Immunohistochemical stains (performed on block B4 with appropriate controls) show:-ENA: Positive- Ki67: Proliferative index of 4.4% (by manual calculation in 525 cells)The overall findings are most consistent with a meningioma, HYDRATE THICKENER OPERATOR WHO grade 1. Although there are foci of abundant lymphocytic inflammation, the degree of inflammatory infiltrate is not sufficient for the designation of lymphoplasmacyte-rich meningioma. AFB and GMS stain will be performed on block B2 and reported in anaddendum. Dr. Araceli Doherty reviewed the case and agrees with grade 1 meningioma.Block B4 has adequate tumor cellularity for additional ancillary studies.[id number], [id number], [id number], [id number], [id number] female with left parietal brain tumor.A. Tumor.The specimen received fresh for intraoperative consultation labeled with the patients information and "LEFT PARIETAL TUMOR" are 2 fragments of malone-pinktissue measuring 0.4 x 0.2 x 0.2 cm in aggregate. One piece is submitted entirely for frozen sectionin cassette FSA1. The remaining tissue is submitted entirely in cassette A2. B. Tumor.Received freshlabeled with the patient's name, medical record number and "tumor" is a 4 x 2.8 x 1 cm aggregate of multiple moser-white, slightly firm tissue fragments. The specimen is serially sectioned to reveal small areas of hemorrhage. Department Head sections are submitted in B1-B10.EUNICE Cowart PA ([facility])drum drier operator. Tumor.FSA. BRAIN, LEFT PARIETAL TUMOR, BIOPSY: - MeningiomaReported by Dr. Marino to Dr. Green on 06/22/22 at 11:21amPerformedThe interpretation of this case included the use of immunohistochemistry or special stains.Control Slides Examined: In-house known positive controls were evaluated along with the test tissue. These control slides run alongside of the patients sample show appropriate staining. Internal positive and negative controls when available are evaluated Immunohistochemistry technical testing was performed at [facility], Pathology Laboratory where it was developed and its performance characteristics were determined. It has not been cleared or approved by the U.S. Food and Drug Administration. The FDA has determined that such clearance or approval is not necessary. The test is used for clinical purposes. It should not be regarded as investigational or for research.This laboratory is certified under the Clinical Laboratory Improvement Amendments of 1988 (CLIA-88) as qualified to perform high complexity clinical laboratory testing.[facility],Department of Pathology, [address] [place] [address], [facility], [facility] of [facility], [address] [place] [address], GqqswiUniversity of California, [facility], Department of Pathology, [address] [place] [address], Pztkuv [id number] 15:18:24 Test Item Value Reference Range Interpretation Comments Case Report (test code Surgical Pathology = 104) Report Case: [id number] Authorizing Provider: Khalif Green MD Collected: 06/22/2022 10:58 AM Ordering Location: [facility] Received: 06/22/2022 11:03 AM SERVICES Pathologist: Fatimah Marino MD Specimens: A) - Tumor, left parietal tumor B) - Tumor, left parietal tumor DIAGNOSIS (test code = [id number] 3220) FuZzEwMzNcZnRuYmpcdWMx IHtccnRmMVxlcGljOTYwMl edklRsABVfkCJrJ4Zkihrk FCirTM4gNF2stRexuTTsnJ DsUXIgPuYod0bdy577hLYc l0upNMWSylzxpFg6zTamV7 1mv8K9ZdnlE44bcNCuHSP3 ZNMkNUCdyUVwWHHmGCM9YL AieLLiZ4poDQPuAQ7nqspv IEcsBBbgRHAoeRF4EKGblA PpZ2GdZWCfBYodRTNfkos6 OyRxXm4yeOHnuKofXEvgZQ HzCSWrROzlRGTcItTwHG3n AUGvJIqeVLOaUOX2AUXlkn incJLiBXJ4qM3pKUJeyP1t d3l4NHUcxlf0NLNpFGQEVO 9xtrucn71tBRVPObYbW6cH PPppGRShQGU3BUSePJLqv8 7sUH67SFTklfqfIXGnZu2w GDCaGLfdTECvAZJ3LQFcmz sckWAkOOF9lZ3sULGriBWj e8gxknohbVBdVDQwMoOjXJ 7bpmatY7hbbKTtUHKYNjOI NG8kR3UqIZAdKOelj1WcJW HgpR1bkyNymQWaAZAfUlJe EYMrncMkgq7qVO4dR5DbjG q2lD7uDEdaPO55jI5jQYzc KQUwqLQgJI8gBJCGWSMdNR QUNMNue0KlmN8xAOFnevLd bmdccGFyXHBhcmRccGFyfX okzzKxZRimt4ScMBpcPVRe RG2odAswNVHhJR7zWQCiV5 cbwE2yczg3EtIlJEWiTgO6 VWLwrnZ7Vde0ECSqXSqhd1 cjw3SuYBUuPNk0sEtjImCm HKCwi8jzrxVzKoHyJCLxAY GgDUQtzRUjD721u8ncc2bj ddBdxRY8MUYoPIB4OWrgwb EgtfY7QArrySEzAkZ1ACqs nyAsQKkwcbYdllOuPqi0JP TkA396XHM6bLate9suLDX7 UXTeQOEkZwDaCa0kfNXgW4 57YARqIAGFSISanIa3OCSv otIuooQgfQUXi404U810t0 otULLxkfEmcKzVjtlds8rr F720EFEhoQQcwgFsOrPhYY AamYWnkST4WWQuKW4nqytb ZPolPWudZXGwlrD0PORjpF QuT7XqKSOcJW4wwzggKQV6 PWqdMHXdFHA0NuGaCKRss7 Kteue6LeNsze4vyg29FEQ6 v9IdhOueSBW7OJC3YlNxJu 6pdJRjNHVvIK3xMoLceZKt EATlaa20gOgtPDxaUKY4WU HxicLdc8Xas0voVePdulBy K5grE0SoEMAyBLSiZELnJa JsglSbg0Uem7PzhMTppOn1 t8vhJQEiPFFvgJoqe1xyPB X6TYAfrUQnH6hyzQ3hAVLa LH9qixndb4beLOgaBFeyNP KixWV0rfT8IVXsjOIuV5Ln gN2iQPIyORycDNGvoln7Uo FeUs9moGVadBjyWCwpOlvz YWdlXHBnbmNvbnRccGduZG VjXHBsYWluXHBsYWluXGYw XGZzMjRccWxcbGFuZzEwMz NcaGljaFxmMVxkYmNoXGYx KSwqT7sxHfFlXhFoJlg9ON RnaWZrYXSxPgb5GYCvqIAw IFDOwUhajW2mTPFthXfhkH 0alNP0GBGyffQiqZMOwZ8b PKEYeA0wOuZ6PDAqEfb2DC Q4LaEdfWWycE3= COMMENT (test code = f1btiHUnMPDbiVM4QdCrCT 0662) Coq5tls9WruEYzfUPxCNzd pFTsmcVscw17gWB0sS74AG 7dBFAnTxY4DMNwqrE3Jcd2 LOFrNAXlpUPbF445e7izm3 jdfqJkdGC4xVlaXINdhihf DcI6QIfwSDKpavqlCOx0XZ dpJAPomGZ5ZDZmnGYnZ6Gv UEMxMO0ublf7NHO7UMguEG DfGmI5ZUAmlMZiGODkaDvo HWgbs530FWB2HgZoJUPaka CtaBzawL7kTlQxZYCBTIX9 kV1bmiAgtG68LHEsuXTgaT 0bi9ZdGJgrZDzfjhFemUnh o06mVLBXjWCxZIMptvJuny CmkElbjRHfT3MfyFAxkZTs kLyiMRUwiCy8bBK8JZ9sUI I0cDVyS9JqAZOpEIC1fiNy ZwOtJwUanU6vwKXiIA5ehX cdRFNqhbXhb0EknTSmh5Wg rRPzd2GwNPUbpVGseRgolr 3qXPHpR7kzk7GiKSR3mlPi sqAkbKfreUltY7a4oCXejB 9ybNVjtNG5kN6fIHWzWEEy VBEsFmFdCKRrMTBdTP8ahk 0aF3QeaHf4vD0dXEreAI51 hK9gYJKravLtSEEcVN2qLJ LaOyZaNV8htG1klCcztG4i aGVtaWNhbCBzdGFpbnMgKH OuowDatv1uWLTnlmEmiU8c viWGFSQ3oHUwOYLytQYjwQ YeKIZmTDEhonVvr3fsKROm yY94YbmpISRqAFYKOBB3MA Awl8b6tGBbOHOxmwWgXZrq Yfc0ICFaz8yhImMvZBBpsx VrcC9fFHtrv8EiBE86KOHj ZeszdAXxjPAcNDBzpSX5dB Z1eA8qXTrvSPOvGMGlQPbx cylccGFyXHBhciBUaGUgb3 WypjIeuSHevY8ncK0ceuRf vpApyN9zmRMuk54yhUD6ES 46IBelgIxtBYTnSO7wszix r86yUMFSUfWxM1wQPArzFI EfZKBbMUUIvMExm1XrvXC9 vIZbYWYclrNfCn2hcXMbHr TdYcKpYDMizXMqdT7shZ9t yTMxWsPdehYgCU1qXAShy3 1pMWVlQSBeJYzgTVAsq2Jo mC0yiJBugEQ0c1S8CVlyRk qsyCWrxVIjgQGvqa81ZST1 OiNeU8kfrpOzYg7wSERzIM XxQJYzA54stUwabmEcWuQp iK0pxY6kcWRtiSMhaJNfXN ZiP1ebtNYsnH9irT5yUO5s OGPKJJMaCYZFYSPlf5TaeX 4ji2aotIByXCZnQSSbj0Pk MTNpm98jDfigT9fhNbLiIR 9jOQFtcA8jqMHsJZmoQHMp QMBxYOJvGAWcVsSLtw4wJO EneGZ0RInceSqreDWoZFDj nncbs5IoUAHwCSZdMTTuDW XpDMZbA5ZnFREjd0f1sRXk zhQeVFBqGR4budlgS0qwdN JkCUTuljupZCOlMkybF2rw JfYjwCHhINPkAHI9LNJfYU L6jO7bNODciIq6tIIakCF0 IGZvciBhZGRpdGlvbmFsIG MyZ1jyrXMkiKDoeDGwlGVn LlxwYXJccGFyZFxwYXJ9 CPT Code(s) (test code b8dmaSZkCUWviYS0QvXzSQ = 6917) Qay3ddg6GecAVcrSUkOEkl xEZbfsJrqw07rCR6qG33NJ 2jFNCrOeC7HKAqvxD3Wah4 FQVkRBSvqLImB803c9kru0 tramNykOU8cPspLOMlntxd FfM1LDrkXRYdxiiiMWq8AR lnNVOwaCB9MTHxpAScG7Sw KOEqNV8xsme5XDW0OSjsIR KcXhL1IBYxjFGjRQJnoMdh EMyvn014BCZ1YtQgCTZfid CuiMbedH7wAeVyWLS4KCCt S3yyGIX7NGYnZNfjHYwiKX OkZHs1YlOvTTY4CQQtYouo XHBhcn0= CLINICAL HISTORY (test m5ujuCEdFLFdpWV4BqYpYD code = 3359) Iad0iyz4KtxWHglQZqQDkm tYLnwlApnu12fNM3nE67ZP 8xSTGuNzK5WGOpkaG6Bap5 NHDqXLDyrPYvN796q1img8 rxtqDvgGE4pTgdNJYixvxf RzU5JUvtDJWwzcsyDJa5FT kkJZWxnIP5OOUkzVNtD0Wb YDArUD3vvaw0WTV1XFolFG CjCxL4NOYxyDSuKEZjoZpm QKwud194VWZ4AeBcOVLryz CtmTnozV8lNdMyJIB6JF79 WEGfXR5gKGRjNG4roWBgm9 l9sXHrYDL5WJZxsjsaxOSx OWDwGOshFRM4wF7gCjvpGB J9 GROSS DESCRIPTION (test l0klbIIfWZGywWUOIISqL6 code = [id number]) ruodZlDKKqsHNjB8Tepvny BMffPY3xJO1ctFonsIGowK LfUV0RLWPoQpQyURBkdFTf ndVvPfXhZRFfqTCwhHT1BY FoGM0cwpmnDQpxRJmbDMRq kxH1BVLmqTEjM1MeFZTcXB 7scwouPYM7NWzpiU7nfiYE CiyqOu6uhNDmpSatJfNnTz NoYXJzZXQwXGZuaWwgQXJp DCw0iV0BQdhhIRJ5TWIQKq smTWPhIL8Pf5dvPPFvhMDj IMV9URnlcZTsQPYySQBwRZ w1TSNsGTtpaEIoGL2mcSax MeedhJxzb0ArxUFiOSfyEG LpMXAaTSovIVEnOG1ACgXv IUb3QtB5NyHxDOl9GOj2YL 3HJtUlFGBpPrDwVrl5ZMRr ETm6EZtoKO8HOMQ1URZuXl R4IxQ5IAQyQIPfJHSnCkSr XGYgQXJpYWwgXFxmbCBcXG 4wlHlplHDvvsAMJaLWzB1u bg4jlTZzBN1PCACtlOTFCF Z6SV6bRGAWQkbyvBCxMLKl yEzpRDhfoL8xXD4OVXz3pf NoXGZzMjAgVGhlIHNwZWNp wKPgKIGqW0AhipWdIZJnTK SxCKYtehOkymTwJL1tVNWx bSa9GJNvo54hpRm5PSNtn7 1gqVAfZBdsOZW8eYIkVBSf CHLyLUTpIA11trTcqxWknn 1hdGlvbiBhbmQgIkxFRlQg TGKEOZCSIKdfKKZHG8BkCF AuTDKtMJXtPCpxKG08ubEg GpG3KS9stUigowT4bUXnqD CtxRBma9ClmO3pWQMfTHY0 LVClAxL1YEZuCoIojRFjly DcY8bcIWulxXJqEW1hQDZv rESqAXFtumCahWGxkKM1RB YaHU40bUNpiNiaVn4kBGWm c7xsfrFwPYE7nJ4jCVhaRH Ydd4XreRYkFBBBWOMuYBQi FUGnLL6zrW6kzcewlGpco9 McKRxdWLE3Jq5lfNYwYPFp bnRpcmVseSBpbiBjYXNzZX B3FFEVRv1cSYqisVdijC4b KWIcP72ht1HAs7YrNYHkMF ygx5rylCfpc4NgvXKsMMsw IRBgjWZtDXgnmJ4yBzSzp3 wyeFs2GSzaejZ6BZZfng7C NuvmTwrejEqne3LdhAUvGI ewKZXlCPKoOOokBAZjFK2X NeRrKKt2MjQ3HnLoQLy7IP w1WC8CPpWuZNGqSqIsGqi5 XGVbBPi7XKvyYC6UCLG0CC uzYPq3KQG1IEXpHQVnSNFw MiBcXGYgQXJpYWwgXFxmbC UwSY9jzKzmfxP9VETzZRfc GYKqWBK6rF0cUzgkGULpYZ zjPHScJ88en2MXt5SvKJ6A ZUw6tvOucftcnA4pFUZwtr WpATpasABbC9fjAzCzJRTM ZWNlaXZlZCBmcmVzaCBsYW JlbGVkIHdpdGggdGhlIHBh jEqyegIsZ8L3diCePR8gVV OzYNYpM8PfWMCyZ80nNJYy fS8eWFReOU0oQKT6cX8qwx FqdJXcRCU0WGexKm23GIbx NHUoxIJxS1vfEXnhsOFgc1 VgnLRfsCpjgCSlT6SmwE30 sUa3JLfge5vxG5l7tNieLa ouiRH4pXZvhZXoFyZjU44v bnRzLiAgVGhlIHNwZWNpbW QyZDnvLZAruhrtdWu2AOIe D9Tjf58zGTJ1qqTySAVnLZ eia00wiPphBPElDKTrc4Xp mEHfd8SyoAJhBX5eBXJtiK Kiv2FdvQO2aDGkTJNvH9Ku e68fZQNoOKOxnIOtbEJ5KA DvxV3aYzMvRhJnMlpoRQSe PBedcDEtEO2YX8ntpEJaBS NQvxJ0beeoWNzRSRLAMFRj DLZNOFjszG0FLZEwXHnvAX UiuKOIDHV9CP3pPRwlrMOp olutSOQbP2VwJ9XtncGjrJ QfQUOtqrLqy7hoHZM4OZIx tVKalMObLwAgHmljZLE2BL pot5bqAEJ7HCQkeVWyhZIb CHacQoDpIcdoYWEyH9SgF1 HtaxH0HUx0 INTRAOPERATIVE o2jzrUJeUGVhwBT5OhPaBI CONSULTATION (test code Jav5xlb9LclHQbvBNyVAlf = [id number]) iUJteaUzrg38xKV4wA47YA 7zPLPuQbW7NUHqjfM5Dsd6 JDDoCUShiEAkG865l2jjm7 lmacUegYN7xIexEJVqnlkl IiX8OEutJTTakrutGYp3EB npUJQwqNC5VORjtHDnV7Ra YVUzLB0adlp4RGR3QJymSN UtNtS1LMFapRAzOHVjbNmw RSnaq838URQ4PrUnWFEkxl W8BTbzQOYhN1XwH7JlUCmr GKH4TBFqJDQfEZKgLHUaLX OaCNxmjqP3s6ubANKfrFWu JUM1PAttfDBmHLNaGKJzXV lqYeMEUjHtDfL8UWX2OOhk TgO6SCj4ONJOBtGhQzLjUy S8HrP2HQFjYJw3QCg6CCvY OrR6Iau0ZvK8FtOjZWMyDI LnDAh8JXFaKStexKRbKIHh GDOlYXtpJXunQ42oqBjjpG 6gFlMwMAXVRtCDmK4yna2b cGFyXGZzMjAgRlNBLiBCUk FJTiwgTEVGVCBQQVJJRVRB HWPIQK7WZnowEhvOOKAKVm cxBBFxfKDhLK7jTGYkvH1b aU3dMHheHIPqvVUiDCNcnX 8igVPsHSL1XVBvYtFCyGQ2 zyFKcr0sSgFtUY3gMUPcYM IxRcLtPMTeVXK7LoLedThl VNZhE1AuF2DuijM0j4bxzL qxn3KtwHHhCE4sdHGsuH== MICROSCOPIC DESCRIPTION q1ukoFNaMHHstNM9McHcDG (test code = 3371) Bnf8xmr3WczRLqiSPjCEee uYHiwqZpld32nBD6vZ10UQ 8aIMMrPrL0QVMnzgR2Kxo2 SMWeUHYcvDDcB958s1kaj1 qcszGqgCH6oKdyCPQklxor NaC9LOvgYFWsbxhrOSy9OE exRLWlyHT7TXOhpZFdK6Sm LVWhZM5yqwh6QRX6MTmeNB ZaMcK1ALKxnXAvKHBaoDuw QKyrm236DYL4DkVaLORvud GrjBacxI1yChIcLHXDFTId d9SqQMLmrYYkgO== SPECIAL STUDIES (test e0gedUTzYBVbs3hzBVBznH code = 3376) FuZzEwMzNcZnRuYmpcdWMx PCjorrQrZYqny2CeS3HgPz AwMFxhbnNpXGRlZmxhbmcx ENXbYEW3otNzFMMjNEjtDW ZmTJpxKu9szONxqVzuIhAe OKTir8uhiwRDdcbekMf9s9 eqVTSnVxX0wWYsUCzeA8cq hqUlrABwR7UfaSYdgTn7d2 fnWyRaEuP6vBPuNYzbJ5si odFceMRaXBDmPOt3gB65KS EhgV0uiVEtKFdnsrEsHxB1 BStlJBHnYuU7BEEqkDPoNB GgI7tgDWJtLGmlGLHgSRdz xAFlMDT0bDpyy2F8sZNhjL MceZeaBpBzPtFzCuHHd2Ro VIt9fWwqN3UzXPOxLrO5kX QgUGFyYWdyYXBoIEZvbnQ7 ySrsjxSwp53osWLjYVMoPM SsGcJkmNhuCJNqAKOYs3Gj eQhhYFI9nEd5gFwkWadnVM I5Ffc2PU7xyh29yyv5fLmx MNAqboknDvV7DPbjQOHpzh lxSSl3YMfcZJEdnEO7QEHl cLBfK2QxTRFdIN5eify6VB Q0OJosJXFeOzP6UTAfxIJb NAIzxNbmBWyod321MYA3Ij BoHV3rU0Lof7N0zP2hhMJs USQojMIyCzRvIKKcrn5dvN CwRNexf6XxXOM0lpL4zAAr bYHjBAXqHA86Xmxtf5KdUw coc2TpA23ucDP5CPaji3eb GI5yYyQ8plEtTZmzu1qjrB 7zTaW4UHtmIK4lUS8kJGJy zI3lfdybEYWrToIwidtiDS JxpIyehlMzAw1ydIvvYGE5 XUhhZ7gcmL9rCqJ3MHyqI7 wvtH3zCYe7OCnfrRU8SXEz cH7tFV9xfwnuw4jvYFybBT sqVAIknjM9kyV2EFBxuDAv L1KidR7fJTCbMK9exhqmc3 vyBUQ4ZGsvILNxOUZ8AhOz ENNgb5Hofmf7GzOrp6SytH CoDRfmA46vj318EVOafzMb H3khgRPpilusqBBqsxleJZ xyzhR8ABMaJHLhOSdhREZj XGZzMjJcbGFuZzEwMzNcaG ljaFxmMVxkYmNoXGYxXGxv A2ypYfHoD5BmWTVwJvErZR sfQTeesOGpbNQraBY0bN5s DK3jYSAijKPxR1YfUJUrbp CjtWCcXSI4wYUekSSbYX1q YLaioVBzt6fdg8MqD7ocaQ ieoQA6SQ3mKNVmSNKrPBjg y4JwpZ0mIeqrjCYwbystSC xmczIyXGxhbmcxMDMzXGhp J9ysBrSqICYhpFvrDArnv3 NoXGYxXGNmMlxmczIyXGx0 cmNoXHBhclxwYXJccGxhaW 2mLtZkWvNsQhyhTD6pJWSw R7feyTElMCVuIJLuC0roXn BdiJ5vcXkdTQlyGkSxHoZe RbBSw276gy7bHLEwhDFwgb GRhBZcmX8gLEaaKKnuXQqb lJXqAHorp4eeVAPyr1k8zL LeEZQhseWsz6efMSaquaEj EXGleEUaeALjYHLco74rCV dzcTfsnZfiCTRpf6IkfImn o1TwEsCoFBemw4JjI85xtQ JvbCBzbGlkZXMgcnVuIGFs w03wx1huEGFfDbS9kSVpuJ V5rZVslOVdd8JgjAufDGQj q2gcEGWjxw6tmkbuuANqi5 BghA8uprrlFHakwYEotpHm FWBxg7c5dXJlYTGrSZEzHG mzzYk9MNSpm968ym9tzhE8 zYOrPOX0EStqVRIhDSZfle UgZXZhbHVhdGVkXHBsYWlu XGYxXGZzMjJcbGFuZzEwMz NcaGljaFxmMVxkYmNoXGYx DXaiA7kxMpYqQ5NgMCDwKh VtzNQhX7gydGRtKJDbPWhx XGYxXGZzMjJcbGFuZzEwMz NcaGljaFxmMVxkYmNoXGYx AAveS5chJyDsI9WpNQXnNp IgIFxwbGFpblxmMVxmczIy MSifutezFDEvXNucY5ncKz VqAGBxwVitUFozt1IdKVZv OLLyGyvnzjNfZKm0tsXsFP BhclxwbGFpblxmMVxmczIy OPhjljkuPUIlQOtaN2vjGh MnAZSaaDxvOBmwh9TsYKVm XGNmMlxmczIyIEltbXVub2 fds3KqL0wjwZlfrFN5ZLXu H2ifdCQfaXE7LTS6nB1nUS cxlsYuMTZma9IwCNYsSAWu KoP9pX3tQZE4WxZZiVwrWH BsYWluXGYxXGZzMjJcbGFu ZzEwMzNcaGljaFxmMVxkYm FhLZTjOXpcG8rdAdNjA2Fe KKHkFbPabRgiNFxeXHa5Lf xwbGFpblxmMVxmczIyXGxh hvyoMGWxNYrwC5hcWgIxMT HgaDagWXqin2NkDBZuTDRt MlxmczIyIHMgTWVkaWNhbC BWGD73XTIpGWLkeQuptI2l aSUMMWPcfyS0a1D1INiiBE ClDFh8CMrcroRjPBWojO4w NYAyWM2wRSl2dkDqMEWnp1 RtQV1cSOQpwUAtDPU1IYDe t3GgX8Lqo4NzIDKuEHQldb 6sxwQgJkLMrNTnPQDmhv51 GOKvDO0aI4omJRUuJPZocd DtaEFhj0YiBWHckTD5hAOn CT6OXsJXz20nHWOaIZWJku TbLXOajKiobLV1nuX7bS3y LiBUaGUgRkRBIGhhcyBkZX Mxsd0uldLaUSBtLAMim1Bj jOXwtCAanaKnX4Jfm2CoGA Lvqx73UVdmlRNpph03PB5j A4Jga0AsnQ3yMAftDHLzr8 JhlERmxKBxTCVhi6YrS5sw mpzcBHkxxANllV8eNBHfST n7EVTcn8SsNZTgp3PpJyNt lrZcBCYkOOPkLBLqnW45OF D3gKhsnEsxadUoGV5hCGQj qpJtBPSjCCRpfM5wPIllwu EkKMUupyK6g1X3VRzbGEKa xmNhEvsvRWS8xdSktuL4dL AkX6bgkkccQCdsWALcs3Bu oB8rdVXLuEJpu3XzcRJjjU MQvPWqWO5iqdDuJR7pJCW1 ODggKENMSUEtODgpIGFzIH R0RFyrXsgxXTM9xtCsJVTb a0SuMXqfD0wrO27auHotfH e4dUEoqNlpvAKemMDkLAXr zcU1a0P4KSYgp9AauralLR BsYWluXGYyXGZzMjJcbGFu ZzEwMzNcaGljaFxmMlxkYm IcIRMyXEsnJ3deSiQxCmLa XbjvVTB7kG== Gross assessment was [facility] performed at ([facility], = 2777) Department of Pathology, [address] [place] [address], Technical component was [facility] performed at ([facility], = 2778) Department of Pathology, [address] [place] [address], Professional component [facility] was performed at ([facility], code = 2779) Department of Pathology, [address] [place] [address], [facility] [id number] 12:23:00 Test Item Value Reference Range Interpretation Comments POC-Glucose Meter (test 94 mg/dL 70-110 : TE STED AT [facility] code = 1538) [address] [place] [address], 770 30: It Account Manager/Techni amirah ID = [id number] for Miller, And hali Lab Interpretation (test Normal code = 38654-9) [facility]-Glucose [id number] 12:23:00 Test Item Value Reference Range Interpretation Comments POC-Glucose Meter (test 94 mg/dL 70-110 : [facility] code = 1538) [address] [place] [address], 770 30: It Account Manager/Techni amirah ID = [id number] for Miller, And hali Lab Interpretation (test Normal code = 73658-2) [facility] [id number] 12:23:00 Test Item Value Reference Range Interpretation Comments POC-Glucose Meter (test 94 mg/dL 70-110 : TE STED AT [facility] code = 1538) [address] [facility] [place], [address]: It Account Manager/Techni amirah ID = [id number] for Paul Mariia lal Lab Interpretation (test Normal code = 76791-1) [facility] [id number] 12:23:00 Test Item Value Reference Range Interpretation Comments POC-GLUCOSE METER 94 mg/dL 70-110 : TESTED A T [facility] 6720 (BEAKER) (test code = [facility], 1538) [address]: It Account Manager/Techni amirah ID = [id number] for Omer Degroot POCT-GLUCOSE [id number] 08:32:34 Test Item Value Reference Range Interpretation Comments POC-GLUCOSE METER 76 mg/dL 70-110 : TESTED A T [facility] 6720 (BEAKER) (test code = [facility], 1538) [address]: It Account Manager/Techni amirah ID = [id number] for Omer Degroot BASIC METABOLIC [id number] 05:16:33 Test Item Value Reference Range Interpretation Comments SODIUM (BEAKER) 139 meq/L 136-145 (test code = 381) POTASSIUM 3.6 meq/L 3.5-5.1 (BEAKER) (test code = 379) CHLORIDE (BEAKER) 109 meq/L 98-107 H (test code = 382) CO2 (BEAKER) 24 meq/L 22-29 (test code = 355) BLOOD UREA 12 mg/dL 7-21 NITROGEN (BEAKER) (test code = 354) CREATININE 0.60 mg/dL 0.57-1.25 (BEAKER) (test code = 358) GLUCOSE RANDOM 89 mg/dL 70-105 (BEAKER) (test code = 652) CALCIUM (BEAKER) 8.2 mg/dL 8.4-10.2 L (test code = 697) EGFR (BEAKER) 113 Interpretatio n of eGFR (test code = mL/min/1.73 values Stage De scription 1092) sq m Result G1 Donya l or high >=90 G2 Mildly decreased 60-89 G3a Mildl y to moderately 45-5 9 G3b Moderately to s everely 30-44 G4 Severl y decreased 15-29 G5 Kidney failure <15Reported eGF R is based on the CKD-EPI 2020 equation that d oes not use a race coefficientEsti mated GFR is not as accur ate as Creatinine Melinda castellon in predicting glom erular filtration rate . Estimated GFR is not appl icable for dialysis patien ts It Account Manager ID - KIMBERLY [id number] 05:16:33 Test Item Value Reference Range Interpretation Comments MAGNESIUM (BEAKER) (test code = 1.9 mg/dL 1.6-2.6 627) It Account Manager ID - KIMBERLY [id number] 05:16:33 Test Item Value Reference Range Interpretation Comments PHOSPHORUS (BEAKER) (test code = 3.2 mg/dL 2.3-4.7 604) It Account Manager ID - KIMBERLY LCBC W/PLT COUNT & AUTO [id number] 04:35:11 Test Item Value Reference Range Interpretation Comments WHITE BLOOD CELL COUNT (BEAKER) 8.8 K/ L 3.5-10.5 (test code = 775) RED BLOOD CELL COUNT (BEAKER) 3.39 M/ L 3.93-5.22 L (test code = 761) HEMOGLOBIN (BEAKER) (test code = 10.3 GM/DL 11.2-15.7 L 410) HEMATOCRIT (BEAKER) (test code = 31.8 % 34.1-44.9 L 411) MEAN CORPUSCULAR VOLUME (BEAKER) 94 fL 79-95 (test code = 753) MEAN CORPUSCULAR HEMOGLOBIN 30.4 pg 25.6-32.2 (BEAKER) (test code = 751) MEAN CORPUSCULAR HEMOGLOBIN CONC 32.4 GM/DL 32.2-35.5 (BEAKER) (test code = 752) RED CELL DISTRIBUTION WIDTH 12.8 % 11.7-14.4 (BEAKER) (test code = 412) PLATELET COUNT (BEAKER) (test 211 K/CU MM 150-450 code = 756) MEAN PLATELET VOLUME (BEAKER) 10.7 fL 9.4-12.3 (test code = 754) NUCLEATED RED BLOOD CELLS 0 /100 WBC 0-0 (BEAKER) (test code = 413) NEUTROPHILS RELATIVE PERCENT 64 % (BEAKER) (test code = 429) LYMPHOCYTES RELATIVE PERCENT 27 % (BEAKER) (test code = 430) MONOCYTES RELATIVE PERCENT 9 % (BEAKER) (test code = 431) EOSINOPHILS RELATIVE PERCENT 0 % (BEAKER) (test code = 432) BASOPHILS RELATIVE PERCENT 0 % (BEAKER) (test code = 437) NEUTROPHILS ABSOLUTE COUNT 5.62 K/ L 1.56-6.13 (BEAKER) (test code = 670) LYMPHOCYTES ABSOLUTE COUNT 2.38 K/ L 1.18-3.74 (BEAKER) (test code = 414) MONOCYTES ABSOLUTE COUNT (BEAKER) 0.77 K/ L 0.24-0.36 H (test code = 415) EOSINOPHILS ABSOLUTE COUNT 0.01 K/ L 0.04-0.36 L (BEAKER) (test code = 416) BASOPHILS ABSOLUTE COUNT (BEAKER) 0.01 K/ L 0.01-0.08 (test code = 417) IMMATURE GRANULOCYTES-RELATIVE 0.30 % 0.00-1.00 PERCENT (BEAKER) (test code = 2801) MR, BRAIN, [id number] 13:01:00Unlisted Reason for Exam - Click Yes and Enter Reason Below->No [facility] 1975 Sex: FFINAL REPORT MR, BRAIN, WITH \\T\\ WITHOUT CONTRAST INDICATION: Craniotomy, post-op Technique: MRI of the brain utilizing axial T1, T2, FLAIR, GRE, DWI, sagittal T1; and postgadolinium axial, sagittal, and coronal T1- weighted images. 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 A 6 mm predominantly hypoattenuating extra-axial fluid collection is present subjacent to the craniotomy. Minimal thin linear enhancement is present along the posterior resection margin. Hemosiderin deposition is present along the resection margin. There is T2/FLAIR hyperintense signal within the left parietal white matter extending caudally along the margin of the occipital horn of left lateral ventricle, similar to prior exam. No restricteddiffusion to suggest recent ischemic insult. No abnormal susceptibility. Scattered T2/FLAIR hyperintense foci within the periventricular and subcortical white matter are nonspecific, however, statistically represent chronic microvascular ischemic changes. No hydrocephalus. Orbits are within normal limits. No obstructive paranasal sinus disease. Additional findings: None. IMPRESSION: Expected postoperative appearance status post resection of left ventricular tumor. Signed: Aparna Ramon MDReport Verified Date/Time: 06/23/2022 13:01:42 HEMOGLOBIN [id number] 10:54:21 Test Item Value Reference Range Interpretation Comments HEMOGLOBIN A1C 4.9 % See_Comment [Automated m essage] ELECTROPHORESIS (J C Lads) The system which (test code = 3811) generated this result transmitted ref erence range: <=5.6%. The reference range was not used to int erpret this result as normal/abnormal . "The A1c is measured using a NGSP-certified method. HbA1c value equal to or greater than 6.5% as thediagnosis cutoff for diabetes. An HbA1c value of 5.7- 6.4% indicates increased risk for diabetes (prediabetes)."T4, [id number] 06:04:50 Test Item Value Reference Range Interpretation Comments FREE T4 (J C Lads) (test code = 655) 1.10 ng/dL 0.70-1.48 It Account Manager ID - MARCOSARS-CoV2/RT-PCR (Asymptomatic ONLY)2022-06-23 05:56:03 Test Item Value Reference Interpretation Comments Range SARS-COV2/RT-PCR Negative Negative The SARS-Co V-2 (test code = target nucleic 20174-4) acids are not detected in thi s specimen. Negat maria results do not preclude SARS-C oV-2 infection and should not be u sed as the sole bas is for patient management decisions. Nega tive results must be combined with clinical observations, patient history , and epidemiolog ical information. A false negative result may occu r if a specimen is improperly collected, transported or handled. This S ARS CoV-2 test is a rapid, real-darren e RT-PCR test intended for th e qualitative detection of nucleic acid fr om SARS-CoV-2 in a nasopharyngeal swab specimen collec manan from individual s suspected of COVID-19 by the ir healthcare provider. ANNY (test code = This test has been ANNY) authorized by FDA under an EUA for use by authorized laboratories. This test is only authorized for the duration of the declaration that circumstances exist justifying the authorization of emergency use of in vitro diagnostic tests for detection and/or diagnosis of COVID-19 under Section 564(b)(1) of the Federal Food, Drug and Cosmetic Act, 21 U.S.C. 360bbb-3(b)(1), unless the authorization is terminated or revoked sooner. Fact Sheet for Healthcare Providers: https://www.[employer]/Documents/Xp ert%20Xpress%20SAR S%20CoV-2/Fact%20S heets/302-3802%20S ARS-COV-2%20HEALTH CARE%20PROVIDERS%2 0FACT%20SHEET.pdf Fact Sheet for Healthcare Patients: https://www.[employer]/Documents/Xp ert%20Xpress%20SAR S%20CoV-2/Fact%20S heets/302-3801%20S ARS-COV-2%20PATIEN T%20FACT%20SHEET.p df Lab Interpretation Normal (test code = 76735-9) [facility]2022-06-23 05:56:03 Test Item Value Reference Interpretation Comments Range SARS-COV2/RT-PCR Negative Negative The SARS-Co V-2 (test code = target nucleic 83022-8) acids are not detected in thi s specimen. Negat maria results do not preclude SARS-C oV-2 infection and should not be u sed as the sole bas is for patient management decisions. Nega tive results must be combined with clinical observations, patient history , and epidemiolog ical information. A false negative result may occu r if a specimen is improperly collected, transported or handled. This S ARS CoV-2 test is a rapid, real-darren e RT-PCR test intended for th e qualitative detection of nucleic acid fr om SARS-CoV-2 in a nasopharyngeal swab specimen collec manan from individual s suspected of COVID-19 by the ir healthcare provider. ANNY (test code = This test has been ANNY) authorized by FDA under an EUA for use by authorized laboratories. This test is only authorized for the duration of the declaration that circumstances exist justifying the authorization of emergency use of in vitro diagnostic tests for detection and/or diagnosis of COVID-19 under Section 564(b)(1) of the Federal Food, Drug and Cosmetic Act, 21 U.S.C. 360bbb-3(b)(1), unless the authorization is terminated or revoked sooner. Fact Sheet for Healthcare Providers: https://www.[employer]/Documents/Xp ert%20Xpress%20SAR S%20CoV-2/Fact%20S heets/302-3802%20S ARS-COV-2%20HEALTH CARE%20PROVIDERS%2 0FACT%20SHEET.pdf Fact Sheet for Healthcare Patients: https://www.[employer]/Documents/Xp ert%20Xpress%20SAR S%20CoV-2/Fact%20S heets/302-3801%20S ARS-COV-2%20PATIEN T%20FACT%20SHEET.p df Lab Interpretation Normal (test code = 29598-1) [facility]2022-06-23 05:56:03 Test Item Value Reference Interpretation Comments Range SARS-COV2/RT-PCR Negative Negative The SARS-Co V-2 (test code = target nucleic 64431-9) acids are not detected in thi s specimen. Negat maria results do not preclude SARS-C oV-2 infection and should not be u sed as the sole bas is for patient management decisions. Nega tive results must be combined with clinical observations, patient history , and epidemiolog ical information. A false negative result may occu r if a specimen is improperly collected, transported or handled. This S ARS CoV-2 test is a rapid, real-darren e RT-PCR test intended for th e qualitative detection of nucleic acid fr om SARS-CoV-2 in a nasopharyngeal swab specimen collec manan from individual s suspected of COVID-19 by the healthcare provider. ANNY (test code = This test has been ANNY) authorized by FDA under an EUA for use by authorized laboratories. This test is only authorized for the duration of the declaration that circumstances exist justifying the authorization of emergency use of in vitro diagnostic tests for detection and/or diagnosis of COVID-19 under Section 564(b)(1) of the Federal Food, Drug and Cosmetic Act, 21 U.S.C. 360bbb-3(b)(1), unless the authorization is terminated or revoked sooner. Fact Sheet for Healthcare Providers: https://www.[employer]/Documents/Xp ert%20Xpress%20SAR S%20CoV-2/Fact%20S heets/302-3802%20S ARS-COV-2%20HEALTH CARE%20PROVIDERS%2 0FACT%20SHEET.pdf Fact Sheet for Healthcare Patients: https://wwwWarp Drive Bio/Documents/Xp ert%20Xpress%20SAR S%20CoV-2/Fact%20S heets/302-3801%20S ARS-COV-2%20PATIEN T%20FACT%20SHEET.p df Lab Interpretation Normal (test code = 27045-1) [facility]2022-06-23 05:56:03 Test Item Value Reference Range Interpretation Comments SARS-COV2/RT-PCR Negative Negative The SARS-Co V-2 target (test code = nucleic acids a re not 2824543) detected in thi s specimen. Negative result s do not preclude SARS-C oV-2 infection and s hould not be used as the ramon e basis for patient managem ent decisions. Nega tive results must be combine d with clinical observ ations, patient history , and epidemiological information. A false negativ e result may occur if a spec imen is improperly tato ected, transported or handled. This SARS CoV-2 test is a rapid, real-time RT-PC R test intended for th e qualitative detection of nu cleic acid from SARS-CoV-2 in a nasopharyngeal swab specimen collected from individuals suspected of CO VID-19 by their healthcar e provider. This test has been authorized by FDA under an EUA for use by authorized laboratories. This test is only authorized for the duration of the declaration that circumstances exist justifying the authorization of emergency use of in vitro diagnostic tests for detection and/or diagnosis of COVID-19 under Section 564(b)(1) of the Federal Food, Drug and Cosmetic Act, 21 U.S.C. 360bbb-3(b)(1), unless the authorization is terminated or revoked sooner. Fact Sheet for Healthcare Providers: https://www.[employer]/Documents/Xpert%20Xpress%20SARS%20CoV-2/Fact%20Sheets/3023802%66RRFZ-TDY-5%20 HEALTHCARE%20PROVIDERS%20FACT%20SHEET.pdf Fact Sheet for Healthcare Patients: https://www.[employer]/Documents/Xpert%20Xp ress%20SARS%20CoV-2/Fact%20Sheets/302-3801%60TPAM-BCU-3%20PATIENT%20FACT%20SHEET .pdfPOCT-GLUCOSE [id number] 05:42:25 Test Item Value Reference Range Interpretation Comments POC-GLUCOSE METER 125 mg/dL 70-110 H : TESTED A T [facility] 6720 (BEAKER) (test code = [place], 1538) [address]: It Account Manager/Techni amirah ID = [id number] for Yfn Ivy TSH/FREE T4 IF [id number] 05:30:00 Test Item Value Reference Range Interpretation Comments THYROID STIMULATING HORMONE 0.291 uIU/mL 0.350-4.940 L (BEAKER) (test code = 772) It Account Manager ID - MARCOBASIC METABOLIC [id number] 05:14:18 Test Item Value Reference Range Interpretation Comments SODIUM (BEAKER) 138 meq/L 136-145 (test code = 381) POTASSIUM 4.1 meq/L 3.5-5.1 Specimen slight ly (BEAKER) (test hemolyzed code = 379) CHLORIDE (BEAKER) 109 meq/L 98-107 H (test code = 382) CO2 (BEAKER) 21 meq/L 22-29 L (test code = 355) BLOOD UREA 7 mg/dL 7-21 NITROGEN (BEAKER) (test code = 354) CREATININE 0.62 mg/dL 0.57-1.25 Specimen slight ly (BEAKER) (test hemolyzed code = 358) GLUCOSE RANDOM 126 mg/dL 70-105 H (BEAKER) (test code = 652) CALCIUM (BEAKER) 8.1 mg/dL 8.4-10.2 L (test code = 697) EGFR (BEAKER) 112 Interpretatio n of eGFR (test code = mL/min/1.73 values Stage De scription 1092) sq m Result G1 Norm al or high >=90 G2 Mildly decreased 60-89 G3a Mildl y to moderately 45-5 9 G3b Moderately to s everely 30-44 G4 Severl y decreased 15-29 G5 Kidne y failure <15Reported eGF R is based on the CKD-EPI 2020 equation that d oes not use a race coefficientEsti mated GFR is not as accur ate as Creatinine Melinda cande in predicting glom erular filtration rate . Estimated GFR is not appl icable for dialysis patien ts It Account Manager ID - ADMINHEPATIC FUNCTION [id number] 05:14:18 Test Item Value Reference Range Interpretation Comments TOTAL PROTEIN (BEAKER) 5.7 gm/dL 6.0-8.3 L Speci men slightly (test code = 770) hemolyzed ALBUMIN (BEAKER) (test 3.0 g/dL 3.5-5.0 L Speci men slightly code = 1145) hemolyzed BILIRUBIN TOTAL 0.4 mg/dL 0.2-1.2 Specimen sli ghtly (BEAKER) (test code = hemoly zed 377) BILIRUBIN DIRECT 0.1 mg/dL 0.1-0.5 Specimen sl ightly (BEAKER) (test code = hemoly zed 706) ALKALINE PHOSPHATASE 138 U/L 40-150 (BEAKER) (test code = 346) AST (SGOT) (BEAKER) 87 U/L 5-34 H Specimen slightly (test code = 353) hemolyzed ALT (SGPT) (BEAKER) 105 U/L 6-55 H Specimen slightly (test code = 347) hemolyzed It Account Manager ID - [id number] 05:14:17 Test Item Value Reference Range Interpretation Comments MAGNESIUM (BEAKER) 2.2 mg/dL 1.6-2.6 Specimen slightly (test code = 627) hemolyzed It Account Manager ID - [id number] 05:14:17 Test Item Value Reference Range Interpretation Comments PHOSPHORUS (BEAKER) 3.8 mg/dL 2.3-4.7 Specimen slightly (test code = 604) hemolyzed It Account Manager ID - [id number] 04:58:13 Test Item Value Reference Range Interpretation Comments PARTIAL THROMBOPLASTIN TIME 29.1 seconds 22.5-36.0 (BEAKER) (test code = 760) CBC (HEMOGRAM ONLY)2022-06-23 04:54:46 Test Item Value Reference Range Interpretation Comments WHITE BLOOD CELL COUNT (BEAKER) 17.7 K/ L 3.5-10.5 H (test code = 775) RED BLOOD CELL COUNT (BEAKER) 3.83 M/ L 3.93-5.22 L (test code = 761) HEMOGLOBIN (BEAKER) (test code = 11.8 GM/DL 11.2-15.7 410) HEMATOCRIT (BEAKER) (test code = 35.3 % 34.1-44.9 411) MEAN CORPUSCULAR VOLUME (BEAKER) 92 fL 79-95 (test code = 753) MEAN CORPUSCULAR HEMOGLOBIN 30.8 pg 25.6-32.2 (BEAKER) (test code = 751) MEAN CORPUSCULAR HEMOGLOBIN CONC 33.4 GM/DL 32.2-35.5 (BEAKER) (test code = 752) RED CELL DISTRIBUTION WIDTH 12.3 % 11.7-14.4 (BEAKER) (test code = 412) PLATELET COUNT (BEAKER) (test 233 K/CU MM 150-450 code = 756) MEAN PLATELET VOLUME (BEAKER) 10.9 fL 9.4-12.3 (test code = 754) NUCLEATED RED BLOOD CELLS 0 /100 WBC 0-0 (BEAKER) (test code = 413) CALCIUM, [id number] 04:31:34 Test Item Value Reference Range Interpretation Comments CALCIUM IONIZED (BEAKER) (test 1.11 mmol/L 1.12-1.27 L code = 698) PH, BLOOD (BEAKER) (test code = 7.40 1810) Lactic Acid, [id number] 00:33:54 Test Item Value Reference Range Interpretation Comments Lactate, Art (test code = 0.5 mmol/L 0.5-2.2 2874) ANNY (test code = ANNY) It Account Manager ID - ADMIN Lab Interpretation (test Normal code = 93407-4) [facility], [id number] 00:33:54 Test Item Value Reference Range Interpretation Comments Lactate, Art (test code = 0.5 mmol/L 0.5-2.2 2874) ANNY (test code = ANNY) It Account Manager ID - ADMIN Lab Interpretation (test Normal code = 50788-9) [facility], [id number] 00:33:54 Test Item Value Reference Range Interpretation Comments Lactate, Art (test code = 0.5 mmol/L 0.5-2.2 2874) ANNY (test code = ANNY) It Account Manager ID - ADMIN Lab Interpretation (test Normal code = 65378-8) [facility], [id number] 00:33:54 Test Item Value Reference Range Interpretation Comments LACTATE BLOOD ARTERIAL (2) 0.5 mmol/L 0.5-2.2 (BEAKER) (test code = 2874) It Account Manager ID - ADMINPOCT-GLUCOSE [id number] 23:58:50 Test Item Value Reference Range Interpretation Comments POC-GLUCOSE METER 123 mg/dL 70-110 H : TESTED A T [facility] 6720 (BEAKER) (test code = [place], 1538) [address]: It Account Manager/Techni amirah ID = [id number] for Yfn Ivy LACTIC ACID, [id number] 21:10:45 Test Item Value Reference Range Interpretation Comments LACTATE BLOOD ARTERIAL (2) 4.4 mmol/L 0.5-2.2 HH (BEAKER) (test code = 2874) It Account Manager ID - BSBlood gas, [id number] 20:53:18 Test Item Value Reference Range Interpretation Comments pH, Arterial (test code 7.31 7.35-7.45 L = 2744-1) pCO2, Arterial (test 40 See_Comment [Autom ated code = 2019-) message] The system which generated this result transmitted reference range : 35 - 45 mm Hg. The reference range was not used to interpret this result as normal/abnormal . pO2, Arterial (test 145 See_Comment H [Automa manan code = 2703-7) message] The system which generated this result transmitted reference range : 80 - 90 mm Hg. The reference range was not used to interpret this result as normal/abnormal . O2 Sat, Arterial (test 98.7 % 96.0-97.0 H code = 2708-6) HCO3, Arterial (test 20 mmol/L 21-29 L code = 1960-4) Base Excess, Arterial -6.3 mmol/L -2.0-3.0 L (test code = 1925-7) Patient Temperature 37.1 (test code = 8310-5) FIO2 (test code = 1819) 32 Lab Interpretation Abnormal (test code = 51518-5) [facility], [id number] 20:53:18 Test Item Value Reference Range Interpretation Comments pH, Arterial (test code 7.31 7.35-7.45 L = 2744-1) pCO2, Arterial (test 40 See_Comment [Autom ated code = 2018-12) message] The system which generated this result transmitted reference range : 35 - 45 mm Hg. The reference range was not used to interpret this result as normal/abnormal . pO2, Arterial (test 145 See_Comment H [Automa manan code = 2703-7) message] The system which generated this result transmitted reference range : 80 - 90 mm Hg. The reference range was not used to interpret this result as normal/abnormal . O2 Sat, Arterial (test 98.7 % 96.0-97.0 H code = 2708-6) HCO3, Arterial (test 20 mmol/L 21-29 L code = 1960-4) Base Excess, Arterial -6.3 mmol/L -2.0-3.0 L (test code = 1925-7) Patient Temperature 37.1 (test code = 8310-5) FIO2 (test code = 1819) 32 Lab Interpretation Abnormal (test code = 60093-6) [facility], [id number] 20:53:18 Test Item Value Reference Range Interpretation Comments pH, Arterial (test code 7.31 7.35-7.45 L = 2744-1) pCO2, Arterial (test 40 See_Comment [Autom ated code = 2018-12) message] The system which generated this result transmitted reference range : 35 - 45 mm Hg. The reference range was not used to interpret this result as normal/abnormal . pO2, Arterial (test 145 See_Comment H [Automa manan code = 2703-7) message] The system which generated this result transmitted reference range : 80 - 90 mm Hg. The reference range was not used to interpret this result as normal/abnormal . O2 Sat, Arterial (test 98.7 % 96.0-97.0 H code = 2708-6) HCO3, Arterial (test 20 mmol/L 21-29 L code = 1960-4) Base Excess, Arterial -6.3 mmol/L -2.0-3.0 L (test code = 1925-7) Patient Temperature 37.1 (test code = 8310-5) FIO2 (test code = 1819) 32 Lab Interpretation Abnormal (test code = 22894-6) [facility], [id number] 20:53:18 Test Item Value Reference Range Interpretation Comments PH ARTERIAL (BEAKER) (test code = 7.31 7.35-7.45 L 383) PCO2 ARTERIAL (BEAKER) (test code 40 mm Hg 35-45 = 384) PO2 ARTERIAL (BEAKER) (test code 145 mm Hg 80-90 H = 385) O2 SATURATION ARTERIAL (BEAKER) 98.7 % 96.0-97.0 H (test code = 386) HCO3 ARTERIAL (BEAKER) (test code 20 mmol/L 21-29 L = 388) BASE EXCESS ARTERIAL (BEAKER) -6.3 mmol/L -2.0-3.0 L (test code = 387) PATIENT TEMPERATURE (BEAKER) 37.1 (test code = 1818) FIO2 (BEAKER) (test code = 1819) 32.0 CT, BRAIN, WITHOUT [id number] 20:46:00Reason for Exam (Free Text) - Addiitonal information for Radiologist->post op new seizure [facility] : 1975 Sex: FFINAL REPORT CT, BRAIN, WITHOUT CONTRAST CLINICAL INDICATION: Unlisted Reason for Exam COMPARISON: 06/22/22 TECHNIQUE: Noncontrast axial CT imaging of the brain and skull. DOSE REDUCTION: Dose modulation, iterative reconstruction, and/or weight-based adjustment of the mA/kV was utilized to reduce the radiation dose to as low as reasonably achievable. FINDINGS:Status post right posterior temporal craniotomy for resection of tumor. A small extra-axial collection measuring up to 1 cmis present subjacent to the craniotomy. Pneumocephalus at the frontal poles. Moderate background senescent parenchymal volume loss. Scattered foci of hypoattenuation are present throughout the periventricular and subcortical white matter, and, although nonspecific by imaging, statistically represent mild chronic microvascular ischemic changes in this age group. No hydrocephalus. Orbits are within normal limits. Small volume fluid layering within the paranasal sinuses. IMPRESSION: Status post right posterior temporal craniotomy for resection of tumor. A small extra-axial collection measuring up to 1cm is present subjacent to the craniotomy. Pneumocephalus at the frontal poles. If there is persistent clinical concern for intracranial pathology, MR examination is recommended for further characterization. Signed: Aparna Ramon MDRepst. [facility] Verified Date/Time: 06/22/2022 20:46:57 Electronically signedby: APARNA RAMON MD on 06/22/2022 08:46 PMCOMPREHENSIVE METABOLIC PANEL 2022-06-22 20:20:54 Test Item Value Reference Range Interpretation Comments TOTAL PROTEIN 5.6 gm/dL 6.0-8.3 L (BEAKER) (test code = 770) ALBUMIN (BEAKER) 3.1 g/dL 3.5-5.0 L (test code = 1145) ALKALINE 135 U/L 40-150 PHOSPHATASE (BEAKER) (test code = 346) BILIRUBIN TOTAL 0.3 mg/dL 0.2-1.2 (BEAKER) (test code = 377) SODIUM (BEAKER) 142 meq/L 136-145 (test code = 381) POTASSIUM (BEAKER) 3.9 meq/L 3.5-5.1 (test code = 379) CHLORIDE (BEAKER) 113 meq/L 98-107 H (test code = 382) CO2 (BEAKER) (test 14 meq/L 22-29 L code = 355) BLOOD UREA 9 mg/dL 7-21 NITROGEN (BEAKER) (test code = 354) CREATININE 0.72 mg/dL 0.57-1.25 (BEAKER) (test code = 358) GLUCOSE RANDOM 139 mg/dL 70-105 H (BEAKER) (test code = 652) CALCIUM (BEAKER) 7.7 mg/dL 8.4-10.2 L (test code = 697) AST (SGOT) 95 U/L 5-34 H (BEAKER) (test code = 353) ALT (SGPT) 108 U/L 6-55 H (BEAKER) (test code = 347) EGFR (BEAKER) 105 Interpretatio n of eGFR (test code = 1092) mL/min/1.[address] age Description sq m Result G1 Donya l or high >=90 G2 Mildly decreased 60-89 G3a Mildl y to moderately 45-5 9 G3b Moderately to s everely 30-44 G4 Severl y decreased 15-29 G5 Kidney failure <15Reported eGF R is based on the CKD-EPI 2021 equation that d oes not use a race coefficientEsti mated GFR is not as accur ate as Creatinine Melinda castellon in predicting glom erular filtration rate . Estimated GFR is not appl icable for dialysis patien ts It Account Manager ID - [id number] 20:18:01 Test Item Value Reference Range Interpretation Comments MAGNESIUM (BEAKER) (test code = 1.6 mg/dL 1.6-2.6 627) It Account Manager ID - [id number] 20:18:01 Test Item Value Reference Range Interpretation Comments PHOSPHORUS (BEAKER) (test code = 3.9 mg/dL 2.3-4.7 604) It Account Manager ID - BSPROTHROMBIN TIME/[id number] 19:59:22 Test Item Value Reference Range Interpretation Comments PROTIME (BEAKER) (test code = 14.0 seconds 11.9-14.2 759) INR (BEAKER) (test code = 370) 1.14 <=5.90 RECOMMENDED COUMADIN/WARFARIN INR THERAPY RANGESSTANDARD DOSE: 2.0 - 3.0 Includes: PROPHYLAXIS for venous thrombosis, systemic embolization; TREATMENT for venous thrombosis and/or pulmonary embolus.HIGH RISK: Target INR is 2.5-3.5 for patients with mechanical heart valves.CBC (HEMOGRAM ONLY)2022-06-22 19:50:38 Test Item Value Reference Range Interpretation Comments WHITE BLOOD CELL COUNT (BEAKER) 14.8 K/ L 3.5-10.5 H (test code = 775) RED BLOOD CELL COUNT (BEAKER) 3.79 M/ L 3.93-5.22 L (test code = 761) HEMOGLOBIN (BEAKER) (test code = 11.7 GM/DL 11.2-15.7 410) HEMATOCRIT (BEAKER) (test code = 35.8 % 34.1-44.9 411) MEAN CORPUSCULAR VOLUME (BEAKER) 95 fL 79-95 (test code = 753) MEAN CORPUSCULAR HEMOGLOBIN 30.9 pg 25.6-32.2 (BEAKER) (test code = 751) MEAN CORPUSCULAR HEMOGLOBIN CONC 32.7 GM/DL 32.2-35.5 (BEAKER) (test code = 752) RED CELL DISTRIBUTION WIDTH 12.2 % 11.7-14.4 (BEAKER) (test code = 412) PLATELET COUNT (BEAKER) (test 235 K/CU MM 150-450 code = 756) MEAN PLATELET VOLUME (BEAKER) 10.4 fL 9.4-12.3 (test code = 754) NUCLEATED RED BLOOD CELLS 0 /100 WBC 0-0 (BEAKER) (test code = 413) BLOOD GAS, [id number] 19:29:28 Test Item Value Reference Range Interpretation Comments PH ARTERIAL (BEAKER) (test code = 7.27 7.35-7.45 L 383) PCO2 ARTERIAL (BEAKER) (test code 39 mm Hg 35-45 = 384) PO2 ARTERIAL (BEAKER) (test code 193 mm Hg 80-90 H = 385) O2 SATURATION ARTERIAL (BEAKER) 99.2 % 96.0-97.0 H (test code = 386) HCO3 ARTERIAL (BEAKER) (test code 17 mmol/L 21-29 L = 388) BASE EXCESS ARTERIAL (BEAKER) -9.2 mmol/L -2.0-3.0 L (test code = 387) PATIENT TEMPERATURE (BEAKER) 37.1 (test code = 1818) FIO2 (BEAKER) (test code = 1819) 100.0 Potassium-Stat [id number] 14:52:37 Test Item Value Reference Range Interpretation Comments Potassium (test code = 2823-3) 3.4 meq/L 3.6-5.5 L Lab Interpretation (test code = Abnormal 33805-1) [facility] [id number] 14:52:37 Test Item Value Reference Range Interpretation Comments Potassium (test code = 2823-3) 3.4 meq/L 3.6-5.5 L Lab Interpretation (test code = Abnormal 20959-0) [facility] [id number] 14:52:37 Test Item Value Reference Range Interpretation Comments Potassium (test code = 2823-3) 3.4 meq/L 3.6-5.5 L Lab Interpretation (test code = Abnormal 21085-9) [facility], [id number] 14:52:37 Test Item Value Reference Range Interpretation Comments PH ARTERIAL (BEAKER) (test code = 7.48 7.35-7.45 H 383) PCO2 ARTERIAL (BEAKER) (test code 29 mm Hg 35-45 L = 384) PO2 ARTERIAL (BEAKER) (test code 176 mm Hg 80-90 H = 385) O2 SATURATION ARTERIAL (BEAKER) 99.3 % 96.0-97.0 H (test code = 386) HCO3 ARTERIAL (BEAKER) (test code 21 mmol/L 21-29 = 388) BASE EXCESS ARTERIAL (BEAKER) -1.1 mmol/L -2.0-3.0 (test code = 387) PATIENT TEMPERATURE (BEAKER) 37.2 (test code = 1818) FIO2 (BEAKER) (test code = 1819) 50.0 POTASSIUM-STAT [id number] 14:52:37 Test Item Value Reference Range Interpretation Comments POTASSIUM (BEAKER) (test code = 3.4 meq/L 3.6-5.5 L 379) STAT-LAB IONIZED [id number] 14:52:16 Test Item Value Reference Range Interpretation Comments FILTER IONIZED CALCIUM (BEAKER) 0.98 nnol/L (test code = 1854) Reference Range: No NormalsHGB/HCT (H&H)-Stat [id number] 14:51:59 Test Item Value Reference Range Interpretation Comments Hemoglobin (test code = 12.3 See_Comment [Au tomated message] 148-7) The system [employer] generated this result transmitted ref erence range: 12.0 - 1 5.0 GM/DL. The refe rence range was not u sed to interpret this result as normal/abnor mal. Hematocrit (test code = 36.0 % 36.0-45.0 4544-3) Lab Interpretation (test Normal code = 29090-0) [facility] ([facility]&H[facility]Stat [id number] 14:51:59 Test Item Value Reference Range Interpretation Comments Hemoglobin (test code = 12.3 See_Comment [Au tomated message] 408-7) The system [employer] generated this result transmitted ref erence range: 12.0 - 1 5.0 GM/DL. The refe rence range was not u sed to interpret this result as normal/abnor mal. Hematocrit (test code = 36.0 % 36.0-45.0 4544-3) Lab Interpretation (test Normal code = 76016-4) [facility] ([facility]&H[facility]Stat [id number] 14:51:59 Test Item Value Reference Range Interpretation Comments Hemoglobin (test code = 12.3 See_Comment [Au tomated message] 148-7) The system [employer] generated this result transmitted ref erence range: 12.0 - 1 5.0 GM/DL. The refe rence range was not u sed to interpret this result as normal/abnor mal. Hematocrit (test code = 36.0 % 36.0-45.0 4544-3) Lab Interpretation (test Normal code = 47718-9) [facility]&H) - STAT [id number] 14:51:59 Test Item Value Reference Range Interpretation Comments HEMOGLOBIN (BEAKER) (test code = 12.3 GM/DL 12.0-15.0 410) HEMATOCRIT (BEAKER) (test code = 36.0 % 36.0-45.0 411) Glucose-Stat [id number] 14:51:58 Test Item Value Reference Range Interpretation Comments Glucose (test code = 2345-7) 125 mg/dL 70-110 H Lab Interpretation (test code = Abnormal 83743-4) [facility] [id number] 14:51:58 Test Item Value Reference Range Interpretation Comments Sodium (test code = 2951-2) 140 meq/L 136-145 Lab Interpretation (test code = Normal 62527-6) [facility]Glucose[facility]Stat [id number] 14:51:58 Test Item Value Reference Range Interpretation Comments Glucose (test code = 2345-7) 125 mg/dL 70-110 H Lab Interpretation (test code = Abnormal 94154-6) [facility] [id number] 14:51:58 Test Item Value Reference Range Interpretation Comments Sodium (test code = 2951-2) 140 meq/L 136-145 Lab Interpretation (test code = Normal 64671-5) [facility]ucose[facility]Stat [id number] 14:51:58 Test Item Value Reference Range Interpretation Comments Glucose (test code = 2345-7) 125 mg/dL 70-110 H Lab Interpretation (test code = Abnormal 72092-8) [facility] [id number] 14:51:58 Test Item Value Reference Range Interpretation Comments Sodium (test code = 2951-2) 140 meq/L 136-145 Lab Interpretation (test code = Normal 96751-3) [facility]UCOSE[facility] [id number] 14:51:58 Test Item Value Reference Range Interpretation Comments GLUCOSE RANDOM (BEAKER) (test code 125 mg/dL 70-110 H = 652) SODIUM NA-STAT [id number] 14:51:58 Test Item Value Reference Range Interpretation Comments SODIUM (BEAKER) (test code = 381) 140 meq/L 136-145 BLOOD GAS, [id number] 13:14:40 Test Item Value Reference Range Interpretation Comments PH ARTERIAL (BEAKER) (test code = 7.48 7.35-7.45 H 383) PCO2 ARTERIAL (BEAKER) (test code 32 mm Hg 35-45 L = 384) PO2 ARTERIAL (BEAKER) (test code = 126 mm Hg 80-90 H 385) O2 SATURATION ARTERIAL (BEAKER) 98.7 % 96.0-97.0 H (test code = 386) HCO3 ARTERIAL (BEAKER) (test code 23 mmol/L 21-29 = 388) BASE EXCESS ARTERIAL (BEAKER) 0.5 mmol/L -2.0-3.0 (test code = 387) PATIENT TEMPERATURE (BEAKER) (test 37.1 code = 1818) FIO2 (BEAKER) (test code = 1819) 44.0 STAT-LAB IONIZED [id number] 13:14:29 Test Item Value Reference Range Interpretation Comments FILTER IONIZED CALCIUM (BEAKER) 1.03 nnol/L (test code = 1854) Reference Range: No NormalsGLUCOSE-STAT [id number] 13:14:12 Test Item Value Reference Range Interpretation Comments GLUCOSE RANDOM (BEAKER) (test code 121 mg/dL 70-110 H = 652) SODIUM NA-STAT [id number] 13:14:12 Test Item Value Reference Range Interpretation Comments SODIUM (BEAKER) (test code = 381) 140 meq/L 136-145 POTASSIUM-STAT [id number] 13:14:12 Test Item Value Reference Range Interpretation Comments POTASSIUM (BEAKER) (test code = 3.5 meq/L 3.6-5.5 L 379) HGB/HCT (H&H) - STAT [id number] 13:14:12 Test Item Value Reference Range Interpretation Comments HEMOGLOBIN (BEAKER) (test code = 13.2 GM/DL 12.0-15.0 410) HEMATOCRIT (BEAKER) (test code = 39.0 % 36.0-45.0 411) BLOOD GAS, [id number] 11:32:16 Test Item Value Reference Range Interpretation Comments PH ARTERIAL (BEAKER) (test code = 7.50 7.35-7.45 H 383) PCO2 ARTERIAL (BEAKER) (test code 34 mm Hg 35-45 L = 384) PO2 ARTERIAL (BEAKER) (test code = 89 mm Hg 80-90 385) O2 SATURATION ARTERIAL (BEAKER) 97.7 % 96.0-97.0 H (test code = 386) HCO3 ARTERIAL (BEAKER) (test code 26 mmol/L 21-29 = 388) BASE EXCESS ARTERIAL (BEAKER) 2.6 mmol/L -2.0-3.0 (test code = 387) PATIENT TEMPERATURE (BEAKER) (test 36.2 code = 1818) FIO2 (BEAKER) (test code = 1819) 44.0 POTASSIUM-STAT [id number] 11:32:15 Test Item Value Reference Range Interpretation Comments POTASSIUM (BEAKER) (test code = 3.3 meq/L 3.6-5.5 L 379) STAT-LAB IONIZED [id number] 11:31:44 Test Item Value Reference Range Interpretation Comments FILTER IONIZED CALCIUM (BEAKER) 1.05 nnol/L (test code = 1854) Reference Range: No NormalsHGB/HCT (H&H) - STAT [id number] 11:30:42 Test Item Value Reference Range Interpretation Comments HEMOGLOBIN (BEAKER) (test code = 12.7 GM/DL 12.0-15.0 410) HEMATOCRIT (BEAKER) (test code = 37.0 % 36.0-45.0 411) GLUCOSE-STAT [id number] 11:30:41 Test Item Value Reference Range Interpretation Comments GLUCOSE RANDOM (BEAKER) (test code = 96 mg/dL 70-110 652) SODIUM NA-STAT [id number] 11:30:41 Test Item Value Reference Range Interpretation Comments SODIUM (BEAKER) (test code = 381) 141 meq/L 136-145 [id number] 11:21:57 Test Item Value Reference Range Interpretation Comments Calcium (test code = 7.7 mg/dL 8.4-10.2 L 10995-7) ANNY (test code = ANNY) It Account Manager ID - AAHAMID Lab Interpretation (test Abnormal code = 10619-2) [facility]cium[facility] 11:21:57 Test Item Value Reference Range Interpretation Comments Calcium (test code = 7.7 mg/dL 8.4-10.2 L 06142-2) ANNY (test code = ANNY) It Account Manager ID - AAHAMID Lab Interpretation (test Abnormal code = 15609-1) [facility]20[facility] 11:21:57 Test Item Value Reference Range Interpretation Comments Calcium (test code = 7.7 mg/dL 8.4-10.2 L 83602-0) ANNY (test code = ANNY) It Account Manager ID - AAHAMID Lab Interpretation (test Abnormal code = 02462-1) [facility] 11:21:57 Test Item Value Reference Range Interpretation Comments CALCIUM (BEAKER) (test code = 697) 7.7 mg/dL 8.4-10.2 L It Account Manager ID - AAHAMIDHGB/HCT (H&H) - STAT [id number] 10:03:20 Test Item Value Reference Range Interpretation Comments HEMOGLOBIN (BEAKER) (test code = 11.6 GM/DL 12.0-15.0 L 410) HEMATOCRIT (BEAKER) (test code = 34.0 % 36.0-45.0 L 411) BLOOD GAS, [id number] 10:03:19 Test Item Value Reference Range Interpretation Comments PH ARTERIAL (BEAKER) (test code = 7.43 7.35-7.45 383) PCO2 ARTERIAL (BEAKER) (test code 42 mm Hg 35-45 = 384) PO2 ARTERIAL (BEAKER) (test code = 139 mm Hg 80-90 H 385) O2 SATURATION ARTERIAL (BEAKER) 98.9 % 96.0-97.0 H (test code = 386) HCO3 ARTERIAL (BEAKER) (test code 27 mmol/L 21-29 = 388) BASE EXCESS ARTERIAL (BEAKER) 2.4 mmol/L -2.0-3.0 (test code = 387) PATIENT TEMPERATURE (BEAKER) (test 36.0 code = 1818) FIO2 (BEAKER) (test code = 1819) 50.0 POTASSIUM-STAT [id number] 10:03:19 Test Item Value Reference Range Interpretation Comments POTASSIUM (BEAKER) (test code = 2.8 meq/L 3.6-5.5 L 379) GLUCOSE-STAT [id number] 10:02:32 Test Item Value Reference Range Interpretation Comments GLUCOSE RANDOM (BEAKER) (test code = 84 mg/dL 70-110 652) SODIUM NA-STAT [id number] 10:02:32 Test Item Value Reference Range Interpretation Comments SODIUM (BEAKER) (test code = 381) 139 meq/L 136-145 POCT , [id number] 06:23:00 Test Item Value Reference Range Interpretation Comments Test Urine, POC (test Negative code = 9519696) Control line present?, POC (test Yes code = 8013818) Background clear?, POC (test code Yes = 7605100) UPT Cassette Lot #, POC (test code 3014326 = 9139171) UPT Cassette Expiration Date, POC 09/05/2023 (test code = 9898206) [facility] , [id number] 06:23:00 Test Item Value Reference Range Interpretation Comments Test Urine, POC (test Negative code = 7209133) Control line present?, POC (test Yes code = 3975556) Background clear?, POC (test code Yes = 1920297) UPT Cassette Lot #, POC (test code 20511114 = 0799975) UPT Cassette Expiration Date, POC 09/05/2023 (test code = 1700383) [facility] , [id number] 06:23:00 Test Item Value Reference Range Interpretation Comments Test Urine, POC (test Negative code = 8959007) Control line present?, POC (test Yes code = 0394488) Background clear?, POC (test code Yes = 8363524) UPT Cassette Lot #, POC (test code 0878694 = 4807641) UPT Cassette Expiration Date, POC 09/05/2023 (test code = 1923709) [facility] [id number] 12:08:33 Test Item Value Reference Range Interpretation Comments SODIUM (BEAKER) 141 meq/L 136-145 (test code = 381) POTASSIUM 3.9 meq/L 3.5-5.1 (BEAKER) (test code = 379) CHLORIDE (BEAKER) 106 meq/L 98-107 (test code = 382) CO2 (BEAKER) 25 meq/L 22-29 (test code = 355) BLOOD UREA 13 mg/dL 7-21 NITROGEN (BEAKER) (test code = 354) CREATININE 0.74 mg/dL 0.57-1.25 (BEAKER) (test code = 358) GLUCOSE RANDOM 65 mg/dL 70-105 L (BEAKER) (test code = 652) CALCIUM (BEAKER) 8.8 mg/dL 8.4-10.2 (test code = 697) EGFR (BEAKER) 102 Interpretatio n of eGFR (test code = mL/min/1.73 values Stage De scription 1092) sq m Result G1 Donya l or high >=90 G2 Mildly decreased 60-89 G3a Mildl y to moderately 45-5 9 G3b Moderately to s everely 30-44 G4 Severl y decreased 15-29 G5 Kidney failure <15Reported eGF R is based on the CKD-EPI 2020 equation that d oes not use a race coefficientEsti mated GFR is not as accur ate as Creatinine Melinda cande in predicting glom erular filtration rate . Estimated GFR is not appl icable for dialysis patien ts It Account Manager ID - [id number] 11:50:04 Test Item Value Reference Range Interpretation Comments PARTIAL THROMBOPLASTIN TIME 30.5 seconds 22.5-36.0 (BEAKER) (test code = 760) PROTHROMBIN TIME/[id number] 11:49:24 Test Item Value Reference Range Interpretation Comments PROTIME (BEAKER) (test code = 12.6 seconds 11.9-14.2 759) INR (BEAKER) (test code = 370) 1.00 <=5.90 RECOMMENDED COUMADIN/WARFARIN INR THERAPY RANGESSTANDARD DOSE: 2.0 - 3.0 Includes: PROPHYLAXIS for venous thrombosis, systemic embolization; TREATMENT for venous thrombosis and/or pulmonary embolus.HIGH RISK: Target INR is 2.5-3.5 for patients with mechanical heart valves.CBC W/PLT COUNT & AUTO [id number] 11:42:44 Test Item Value Reference Range Interpretation Comments WHITE BLOOD CELL COUNT (BEAKER) 7.1 K/ L 3.5-10.5 (test code = 775) RED BLOOD CELL COUNT (BEAKER) 4.66 M/ L 3.93-5.22 (test code = 761) HEMOGLOBIN (BEAKER) (test code = 14.1 GM/DL 11.2-15.7 410) HEMATOCRIT (BEAKER) (test code = 44.1 % 34.1-44.9 411) MEAN CORPUSCULAR VOLUME (BEAKER) 95 fL 79-95 (test code = 753) MEAN CORPUSCULAR HEMOGLOBIN 30.3 pg 25.6-32.2 (BEAKER) (test code = 751) MEAN CORPUSCULAR HEMOGLOBIN CONC 32.0 GM/DL 32.2-35.5 L (BEAKER) (test code = 752) RED CELL DISTRIBUTION WIDTH 12.3 % 11.7-14.4 (BEAKER) (test code = 412) PLATELET COUNT (BEAKER) (test 210 K/CU MM 150-450 code = 756) MEAN PLATELET VOLUME (BEAKER) 10.8 fL 9.4-12.3 (test code = 754) NUCLEATED RED BLOOD CELLS 0 /100 WBC 0-0 (BEAKER) (test code = 413) NEUTROPHILS RELATIVE PERCENT 60 % (BEAKER) (test code = 429) LYMPHOCYTES RELATIVE PERCENT 32 % (BEAKER) (test code = 430) MONOCYTES RELATIVE PERCENT 5 % (BEAKER) (test code = 431) EOSINOPHILS RELATIVE PERCENT 3 % (BEAKER) (test code = 432) BASOPHILS RELATIVE PERCENT 0 % (BEAKER) (test code = 437) NEUTROPHILS ABSOLUTE COUNT 4.30 K/ L 1.56-6.13 (BEAKER) (test code = 670) LYMPHOCYTES ABSOLUTE COUNT 2.27 K/ L 1.18-3.74 (BEAKER) (test code = 414) MONOCYTES ABSOLUTE COUNT (BEAKER) 0.32 K/ L 0.24-0.36 (test code = 415) EOSINOPHILS ABSOLUTE COUNT 0.19 K/ L 0.04-0.36 (BEAKER) (test code = 416) BASOPHILS ABSOLUTE COUNT (BEAKER) 0.02 K/ L 0.01-0.08 (test code = 417) IMMATURE GRANULOCYTES-RELATIVE 0.30 % 0.00-1.00 PERCENT (BEAKER) (test code = 2801) RAD, CHEST, 2 [id number] 17:15:00Reason for exam:->[facility]op testing [facility] 1975 Sex: FFINAL REPORT Chest, 2 views History: Preoperative test Comparison: none Findings:Clear lungs. Normal size heart. No pleural effusion or pneumothorax. Impression:No significant findings in the chest. Signed: Eliecer Oconnorepolga lidia Verified Date/Time: 06/17/2022 17:15:00 Urinalysis w/Microscopic + Reflex to Culture 2022-06-17 12:37:27 Test Item Value Reference Range Interpretation Comments Color, UA (test code Yellow = 5778-6) Clarity, UA (test Clear code = 5767-9) Specific [place], UA 1.030 1.001-1.035 (test code = 5811-5) pH, UA (test code = 6.0 5.0-8.0 5803-2) Protein, UA (test 20 mg/dL Negative A code = 14805-2) Glucose, UA (test Negative Negative code = 365) Ketones, UA (test Negative Negative code = 2514-8) Bilirubin, UA (test Negative Negative code = 41300-7) Blood, UA (test code Negative Negative = 15690-5) Nitrite, UA (test Negative Negative code = 5802-4) Leukocytes, UA (test Negative Negative code = 5799-2) Urobilinogen, UA 0.2 0.2-1.0 (test code = 54030-2) RBC, UA (test code = 1 See_Comment [Autom ated 22679-5) message] The system which generated this result transmitted reference range : /HPF. The reference range was not used to interpret this result as normal/abnormal . WBC, UA (test code = 1 See_Comment [Autom ated 5821-4) message] The system which generated this result transmitted reference range : /HPF. The reference range was not used to interpret this result as normal/abnormal . Mucus (test code = Occasional 8247-9) Squam Epithel, UA 3 See_Comment [Automate d (test code = 39609-9) messag e] The system which generated this result transmitted reference range : /HPF. The reference range was not used to interpret this result as normal/abnormal . Specimen Source (test code = 2795) ANNY (test code = ANNY) It Account Manager ID - [auto]It Account Manager ID - tech Lab Interpretation Abnormal (test code = 66807-4) [facility] + Reflex to Culture 2022-06-17 12:37:27 Test Item Value Reference Range Interpretation Comments Color, UA (test code Yellow = 5778-6) Clarity, UA (test Clear code = 5767-9) Specific [place], UA 1.030 1.001-1.035 (test code = 5811-5) pH, UA (test code = 6.0 5.0-8.0 5803-2) Protein, UA (test 20 mg/dL Negative A code = 30003-4) Glucose, UA (test Negative Negative code = 365) Ketones, UA (test Negative Negative code = 2514-8) Bilirubin, UA (test Negative Negative code = 08855-8) Blood, UA (test code Negative Negative = 29737-4) Nitrite, UA (test Negative Negative code = 5802-4) Leukocytes, UA (test Negative Negative code = 5799-2) Urobilinogen, UA 0.2 0.2-1.0 (test code = 31721-6) RBC, UA (test code = 1 See_Comment [Autom ated 20003-6) message] The system which generated this result transmitted reference range : /HPF. The reference range was not used to interpret this result as normal/abnormal . WBC, UA (test code = 1 See_Comment [Autom ated 5821-4) message] The system which generated this result transmitted reference range : /HPF. The reference range was not used to interpret this result as normal/abnormal . Mucus (test code = Occasional 8247-9) Squam Epithel, UA 3 See_Comment [Automate d (test code = 51043-4) messag e] The system which generated this result transmitted reference range : /HPF. The reference range was not used to interpret this result as normal/abnormal . Specimen Source (test code = 2795) ANNY (test code = ANNY) It Account Manager ID - [auto]It Account Manager ID - tech Lab Interpretation Abnormal (test code = 14184-3) [facility] + Reflex to Culture 2022-06-17 12:37:27 Test Item Value Reference Range Interpretation Comments Color, UA (test code Yellow = 5778-6) Clarity, UA (test Clear code = 5767-9) Specific [place], UA 1.030 1.001-1.035 (test code = 5811-5) pH, UA (test code = 6.0 5.0-8.0 5803-2) Protein, UA (test 20 mg/dL Negative A code = 64403-1) Glucose, UA (test Negative Negative code = 365) Ketones, UA (test Negative Negative code = 2514-8) Bilirubin, UA (test Negative Negative code = 50404-7) Blood, UA (test code Negative Negative = 63446-8) Nitrite, UA (test Negative Negative code = 5802-4) Leukocytes, UA (test Negative Negative code = 5799-2) Urobilinogen, UA 0.2 0.2-1.0 (test code = 71184-3) RBC, UA (test code = 1 See_Comment [Autom ated 61125-4) message] The system which generated this result transmitted reference range : /HPF. The reference range was not used to interpret this result as normal/abnormal . WBC, UA (test code = 1 See_Comment [Autom ated 5821-4) message] The system which generated this result transmitted reference range : /HPF. The reference range was not used to interpret this result as normal/abnormal . Mucus (test code = Occasional 8247-9) Squam Epithel, UA 3 See_Comment [Automate d (test code = 26095-3) messag e] The system which generated this result transmitted reference range : /HPF. The reference range was not used to interpret this result as normal/abnormal . Specimen Source (test code = 2795) ANNY (test code = ANNY) It Account Manager ID - [auto]It Account Manager ID - tech Lab Interpretation Abnormal (test code = 10839-2) [facility]opic + Reflex to Culture 2022-06-17 12:37:27 Test Item Value Reference Range Interpretation Comments Color, UA (test code Yellow = 5778-6) Clarity, UA (test Clear code = 5767-9) Specific [place], UA 1.030 1.001-1.035 (test code = 5811-5) pH, UA (test code = 6.0 5.0-8.0 5803-2) Protein, UA (test 20 mg/dL Negative A code = 97165-4) Glucose, UA (test Negative Negative code = 365) Ketones, UA (test Negative Negative code = 2514-8) Bilirubin, UA (test Negative Negative code = 45101-8) Blood, UA (test code Negative Negative = 51574-2) Nitrite, UA (test Negative Negative code = 5802-4) Leukocytes, UA (test Negative Negative code = 5799-2) Urobilinogen, UA 0.2 0.2-1.0 (test code = 02390-5) RBC, UA (test code = 1 See_Comment [Autom ated 72007-3) message] The system which generated this result transmitted reference range : /HPF. The reference range was not used to interpret this result as normal/abnormal . WBC, UA (test code = 1 See_Comment [Autom ated 5821-4) message] The system which generated this result transmitted reference range : /HPF. The reference range was not used to interpret this result as normal/abnormal . Mucus (test code = Occasional 8247-9) Squam Epithel, UA 3 See_Comment [Automate d (test code = 70432-6) messag e] The system which generated this result transmitted reference range : /HPF. The reference range was not used to interpret this result as normal/abnormal . Specimen Source (test code = 2795) ANNY (test code = ANNY) It Account Manager ID - [auto]It Account Manager ID - tech Lab Interpretation Abnormal (test code = 46556-4) [facility] REFLEX URINE [id number] 12:37:27 Test Item Value Reference Range Interpretation Comments COLOR (BEAKER) (test code = 470) Yellow CLARITY (BEAKER) (test code = 469) Clear SPECIFIC GRAVITY UA (BEAKER) (test 1.030 1.001-1.035 code = 468) PH UA (BEAKER) (test code = 467) 6.0 5.0-8.0 PROTEIN UA (BEAKER) (test code = 20 mg/dL Negative A 464) GLUCOSE UA (BEAKER) (test code = Negative Negative 365) KETONES UA (BEAKER) (test code = Negative Negative 371) BILIRUBIN UA (BEAKER) (test code = Negative Negative 462) BLOOD UA (BEAKER) (test code = Negative Negative 461) NITRITE UA (BEAKER) (test code = Negative Negative 465) LEUKOCYTE ESTERASE UA (BEAKER) Negative Negative (test code = 466) UROBILINOGEN UA (BEAKER) (test 0.2 0.2-1.0 code = 463) RBC UA (BEAKER) (test code = 519) 1 /HPF WBC UA (BEAKER) (test code = 520) 1 /HPF MUCUS (BEAKER) (test code = 1574) Occasional SQUAMOUS EPITHELIAL (BEAKER) (test 3 /HPF code = 516) SOURCE(BEAKER) (test code = 2795) It Account Manager ID - [auto]It Account Manager ID - techMR, BRAIN, [id number] 19:57:00Need stealth protocolMRI need to be under anesthesia, patient is severely claustrophobic.Need stealth protocolMRI need to be under anesthesia, patient is severely claustrophobic.Unlisted Reason for Exam - Click Yes and Enter Reason Below->YesUnlisted Reason for Exam->D49.6 [facility] 1975 Sex: FFINAL REPORT MR, BRAIN, WITH \\T\\ WITHOUT CONTRAST INDICATION: Unlisted Reason for ExamD49.6 Technique: MRI of the brain utilizing axial T1, T2, FLAIR, GRE, DWI, sagittal T1; and postgadolinium axial, sagittal, and coronal T1- weighted images. COMPARISON: None FINDINGS:3.7 cm T1 hypointense, T2 hyperintense enhancing lesion which appears centered within the atrium of the left lateral ventricle. On T2-weighted images, there is suggestion of a CSF cleft surrounding the lesion. There is edema of the adjacent left temporal and parietal lobes. No midline shift. No restricted diffusion to suggest recent infarct. No abnormal susceptibility. Scattered T2/FLAIR hyperintense foci within the periventricular and subcortical white matter are nonspecific, however, statistically represent chronic microvascular ischemic changes. No hydrocephalus. Orbits are within normal limits. No obstructiveparanasal sinus disease. Additional findings: None. IMPRESSION: 3.7 cm T1 hypointense, T2 hyperintense enhancing lesion which appears centered within the atrium of the left lateral ventricle. On T2-weighted images, there is suggestion of a CSF cleft surrounding the lesion. There is edema of the adjacent left temporal and parietal lobes. No midline shift. Differential diagnoses would include intraventricular meningioma, choroid plexus tumor (although no hydrocephalus is present), subependymoma and intraventricular metastasis. Signed: Aparna Ramonyale [facility] Verified Date/Time: 06/06/2022 19:57:15 POCT , urine 2022-06-06 11:31:00 Test Item Value Reference Range Interpretation Comments Test Urine, POC (test Negative code = 4226411) Control line present?, POC (test Yes code = 3641019) Background clear?, POC (test code Yes = 9748878) UPT Cassette Lot #, POC (test code [id number] = [id number]) UPT Cassette Expiration Date, POC 09/05/2023 (test code = 5980224) [facility] , [id number] 11:31:00 Test Item Value Reference Range Interpretation Comments Test Urine, POC (test Negative code = 3302586) Control line present?, POC (test Yes code = 2221335) Background clear?, POC (test code Yes = 8180948) UPT Cassette Lot #, POC (test code [id number] = [id number]) UPT Cassette Expiration Date, POC 09/05/2023 (test code = 1230093) [facility] , [id number] 11:31:00 Test Item Value Reference Range Interpretation Comments Test Urine, POC (test Negative code = 6308216) Control line present?, POC (test Yes code = 7959067) Background clear?, POC (test code Yes = 9327855) UPT Cassette Lot #, POC (test code [id number] = 6843391) UPT Cassette Expiration Date, POC 09/05/2023 (test code = 0673270) [facility] SARS-COV-2 ANTIGEN (BINAX NOW)2022-01-16 16:11:00 Test Item Value Reference Range Interpretation Comments POCT SARS-COV-2 ANTIGEN (test code = Positive Not Detected A 5076) On board controls acceptable with C Yes Line (test code = 3574) Lab Interpretation (test code = Abnormal 19875-1) [facility] 13[facility]00 Test Item Value Reference Range Interpretation Comments SURGICAL (test code = SR) R UN DATE: 07/26/21 [place] [facility] PAGE 1 RUN TIME: 1310 Specimen Inquiry RUN USER: INTERFACE Sofiya ATIENT: ESTHER ROSAS #: [id number] LOC: [place] U #: [id number] AGE/SX: 46/F ROOM: [facility] RE07/22/21REG DR: Isaiah Arias MD : 79 BED: A DIS: 07/24/21 STATUS: DIS IN TLOC: SPEC #: [id number] RECD: 07/22/21 STATUS: DA RE #: [id number] TATO: 07/22/[address] [facility] [address]: Isaiah Arias MD ENTERED: 07/22/21 SP TYPE: SURGICAL OTHR DR: Mely Winslow MD, Nadeem MDORDERED: 23050, ANATOMIC SPEC COPIES TO: Isaiah Arias MD [address] [place] [address] Mely Winslow MD [address] [address] [place] [address] [place] [address] [facility] [address] [place] [address] PROCEDURES: 52164 (07/22/21) TISSUES: A. STOMACH SUBTOTAL / TOTAL RESECTION NOT TUMOR/SLEEVE FINAL DIAGNOSIS PORTION OF STOMACH, SLEEVE GASTRECTOMY: - Mild chronic gastritis. GROSS DESCRIPTION Received in formalin labeled with Patient's name, , MRN and "Portion of stomach";consists of a tubular segment of stomach that measures 16.5 cm in length and 1.7-2.5 cm indiameter. The serosal surface is malone, smooth and glistening, presents a staple line thatmeasures 19.5 cm in length. The mucosal surface is malone, smooth and glistening. No lesionsare grossly identified, consumer sales representative sections are submitted in a single cassette. XZ Technical component excluding immunohistochemistry is performed at [facility], [address] [facility] [place] [address] Technical component of all immunohistochemistry is performed at [facility], [address], [address], [place] [address] CONTINUED ON NEXT PAGE R UN DATE: 07/26/21 [facility] PAGE 2 RUN TIME: 1310 Specimen Inquiry RUN USER: INTERFACE S PEC #: [id number] PATIENT: ESTHER ROSAS #[id number] (Continued) GROSS DESCRIPTION (Continued) Immunohistochemistry: This test was developed and its performance characteristicsdetermined by this laboratory. It has not been approved nor does it need approval by the USFDA. Appropriate positive and negative controls are reviewed and judged to be acceptable.This laboratory is certified under the Clinical Laboratory Improvement Amendments (CLIA-88)as qualified to perform high complexity clinical laboratory testing. Unless gross only, the diagnosis is based upon microscopic examination. CLINICAL INFORMATION COLLECTION DATE: 07/22/2021 --------- Signed SIGNATURE ON FILE Jaron Brooks 07/26/21 1310 END OF REPORT CBC W/AUTO [id number] 16:36:00 Test Item Value Reference Range Interpretation [...] SCAN NEEDED (test code = MDIFF) DIFFERENTIAL [id number] 16:36:00 Test Item Value Reference Range Interpretation Comments STAIN ACCEPTABILITY (test STAIN ACCEPTABLE code = STN ACCEPTABLE) CABOT RINGS (test code = CAB) MORPHOLOGY COMMENT (test NORMAL code = MOC) PLATELET ESTIMATE (test code ADEQUATE = PLTEST) PLATELET MORPHOLOGY (test NORMAL code = PLTMORPH) BASIC METABOLIC [id number] 16:26:00 Test Item Value Reference Range Interpretation [...] Modifi ed MDRD (test code = GFR) formula.[facility] kidney disease is defined as eith er kidney damageor GFR <60 mL/min/1.73 m2 for >3 months. [Automated mess age] The system OPENLANE generated this result transmitted ref erence range: >=60. Th e reference range was not used to int erpret this result as normal/abnormal . CREATININE (test 0.50 mg/dL 0.55-1.02 L Note sommers ge in code = CREAT) reference rang e due to change in reagent. 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 [facility] COVID 19 Asymptomatic IH [id number] 06:28:00 Test Item Value Reference Range Interpretation Comments COVID 19 Asymptomatic IH AG (test NEGATIVE NEGATIVE code = COVNONPUIAG) HCG SERUM [id number] 16:27:00 Test Item Value Reference Range Interpretation Comments HCG SERUM QUAL (test NEGATIVE NEGATIVE This H CGQL test is NOT code = HCGQL) applicable for MALE patients.Check with nurse about probable order error.If Tumor Marker Test needed, nu rse should order test "HCG TU"(Test #550.12635)---- - URINALYSIS [id number] 15:44:00 Test Item Value Reference Range Interpretation Comments UA COLOR (test code = Light-Yellow YELLOW COLU) UA APPEARANCE (test CLEAR CLEAR IS THE S AMPLE code = APPU) FROM ER OR L&D? NO SRG ESDRAS IF T HE ANSWER IS NO,PLEASE DOCUMENT TWO RN SIGNATURES HERE - by [id number] 07/15/21 1544 UA GLUCOSE DIPSTICK NEGATIVE mg/dL [...] FEW MUCU) Urine Source? Clean CatchCOMPREHENSIVE METABOLIC [id number] 15:43:00 Test Item Value Reference Range Interpretation [...] >3 months. [Automated mess age] The system OPENLANE generated this result transmit manan reference range [...] due ALKP) to change in reagent. PROTHROMBIN [id number] 15:28:00 Test Item Value Reference Range Interpretation [...] ion INR range Pulmonary embol ism treatment (2.0-3.0)Venous thrombosis treatmentVenous thrombosis prophylaxis (hi gh risk surgery)Prevent ion of systemic emboli sm from: Acute myocardial infa rction Valvular heart disease Atrial fibrillation Mechanical pros thetic heart valves (2.5-3.5) IS PATIENT ON ANTICOAGULANTS? NTHROMBOPLASTIN TIME [id number] 15:28:00 Test Item Value Reference Range Interpretation Comments THROMBOPLASTIN TIME PARTIAL 36.6 seconds 23.0-37.0 N (test code = PTT) IS PATIENT ON ANTICOAGULANTS? NCBC W/AUTO [id number] 15:26:00 Test Item Value Reference Range Interpretation [...] NO = MDIFF) - XR CHEST 2 [id number] 14:21:00 [facility] 1975 Sex: F FAX: Isaiah Alexis MD [phone] [place]: O St: PRE FAX: Mark Anthony Plaza MD [phone] Name: ESTHER ROSAS [facility] : 1975 Age/S: 46/F [address] #: [id number] Loc: [place] [address] Phys: Isaiah Arias MD Acct: [id number] Dis Date: Status: PRE IN PHONE #: [phone] Exam Date: 07/15/2021 1404 FAX #: [phone] Reason: PREOP EXAMS: CPT CODE: [id number] XR CHEST 2 V 96681 REASON FOR EXAM: PREOP Exam Order Date: 07/15/2021 1:13 PM Ordering M.D.: Isaiah Arias MD PROCEDURE: - XR CHEST 2 V COMPARISON: None FINDINGS: The lungs are clear. There is nopleural effusion or pneumothorax. Pulmonary vascularity is within normal limits. Cardiomediastinal silhouette is normal in size for technique. The mediastinal contours are within normal limits. Degenerative changes are present in the spine. The visualized upper abdomen is within normal limits. IMPRESSION: No acute cardiopulmonary process. Location: [facility] at 1421 Reported and signed by: Jacobo Singleton MD CC: Isaiah Arias MD; Mark Anthony Plaza MD Technologist: Kevin Bernal RT(R) Trnscrd Date/Time/By: 07/15/2021 (5912) : By: [email or web address] [facility] D/T: S: 07/15/2021 (0202) PAGE 1 Signed ReportLIPID PROFILE (CORONARY RISK)2021-05-08 18:08:00 Test Item Value Reference Range Interpretation Comments TRIGLYCERIDES (test 132 mg/dL 20-150 N code = TRIG) CHOLESTEROL (test code 179 mg/dL 0-200 N = CHOL) CHOLESTEROL/HDL RATIO 3.0 RATIO 0-4.9 N RISK A SSOCIATED WITH (test code = CHOLHDL) CHOL/H DL RATIOS: Risk Male Female1/2 AVERAGE 3.43 3.27AVERAG E 4.97 4.442X AVERAGE 9.55 7.053X AVERAGE 23.39 11.04 REFERENCE VALUE IS RELATED TO R ISK LEVELS ASRECOMM ENDED BY THE NAT. GONZALEZ RT, LUNG, AND BLOOD INST. HDL CHOLESTEROL (test 49 mg/dL 40-60 N code = HDL) LIPOPROTEIN LDL (test 123 mg/dL 100-129 N RN PER SWAPNA, CONTACT code = LDL) PHYSICIAN IMMED IATELY IF THIS IS A ST RO[place], AMI OR CAROTID STENOSIS PATIEN T WHEN THE LDL >100 ([address] OCCURENCE, THIS ADMISSION)===== ======= ======= ======= ===Reference In terval: mg/dL mmol/L--------- ------- ------- ------O ptimal <100 <2.6Near/above optimal 100-129 2.6-3.3Borderli ne High 130-159 3.4-4.1 High 160-189 4.1-4.9 Very High >=190 >=4.9========= This LDL result is a direct measurement.=== ====== HEPATIC FUNCTION [id number] 18:08:00 Test Item Value Reference Range Interpretation [...] ALKP) to change in reagent. HCG SERUM [id number] 18:08:00 Test Item Value Reference Range Interpretation Comments HCG SERUM QUAL (test NEGATIVE NEGATIVE This HC GQL test is NOT code = HCGQL) applicable for MALE patients.Check with nurse about probable order error.If Tumor Marker Test needed, nu rse should order test "HCG TU"(Test #550.98960)---- - VITAMIN [id number] 18:08:00 Test Item Value Reference Range Interpretation Comments VITAMIN B12 (test code = VITB12) 5118 pg/mL 193-986 H FOLIC [id number] 18:08:00 Test Item Value Reference Range Interpretation Comments FOLIC ACID (test code = FOL) 39.2 ng/mL 3.10-17.50 H THYROID PROFILE [id number] 18:08:00 Test Item Value Reference Range Interpretation Comments T3 UPTAKE (test code = 30.0 % 30.0-40.0 N T3UP) T4 (THYROXINE) (test 7.4 ug/dL 4.5-13.9 N code = T4) T7 (FREE THYROXINE 2.22 FTI 1.3-5.1 N INDEX) (test code = T7) THYROID STIMULATING 4.341 uIU/mL 0.36-3.74 H TSH REFE RENCE HORMONE (test code = RANGES: EUTHYROID: TSH) 0.35 - 4.3 mIU/ mL HYPO : > 5.5 mI U/mL HYPER : < 0.35 mIU/mL VIT B1 WHOLE [id number] 18:08:00 Test Item Value Reference Range Interpretation Comments VIT B1 WHOLE BLOOD 184.0 nmol/L 66.5-200.0 Performed At: BN (test code = [facility] nss7170 [id number]) [place], [place] [address]Rni nataliia Scott MD Ph:[phone] GASTRIC,[id number] 15:31:00 Test Item Value Reference Range Interpretation Comments GASTRIC,BIOPSY (test code = GASTB) RUN DATE: 05/04/21 [facility] PAGE 1 RUN TIME: 153 Specimen Inquiry RUN USER: INTERFACE PATIENT: ESTHER ROSAS LOC: CamRHONDA U #: [id number] AGE/SX: 46/F ROOM: RE05/03/21REG DR: Isaiah Arias MD : [birth year] BED: DIS: [place]US[place] [facility] [place]: SPEC #: [id number] RECD: 05/03/21 STATUS: DA DUGGAN #: [id number] TATO: 05/03/[address]: Isaiah Arias MD ENTERED: 05/03/21 SP TYPE: GASTRIC BX OTHR DR: Mark Anthony Plaza MD ORDERED: GROSS COPIES TO: Isaiah Arias MD [address] [place] [id number] [place] [address] [facility] [address], [place] [id number] PROCEDURES: GROSS (05/04/21-1329) TISSUES: GASTRIC [facility]PUS - BX CLINICAL HISTORY COLLECTION DATE: 05/03/21 GERD GASTRITIS, HIATAL HERNIA FINAL DIAGNOSIS Gastric, r/o H. Pylori, biopsy: REACTIVE GASTROPATHY NEGATIVE FOR INTESTINAL METAPLASIA NEGATIVE FOR HELICOBACTER ORGANISMS NEGATIVE FOR MALIGNANCY RRB/ D [address], [address] CONTINUED ON NEXT PAGE RUN DATE: 05/04/21 [place] - Lab PAGE 2 RUN TIME: 1531 Specimen Inquiry RUN USER: INTERFACE SPEC #: [id number] PATIENT: ESTHER ROSAS #[id number] (Continued) MACROSCOPIC The specimen is received in formalin, labeled with the patient's name, identified as "gastric", and consists of a single hernandez biopsy measuring 0.2 cm, submitted for evaluation. GROSS PERFORMED AT [facility] [address] [place] [address] (P)[phone] MICROSCOPIC To identify Helicobacter organisms, a Giemsa stain was performed. No organisms are seen. All of the stains, including any controls performed, stain appropriately. MICROSCOPIC PERFORMED AT [facility] [address] [place] [address] (P)[phone] --- Signed SIGNATURE ON FILE Sushil Loza 05/04/21 1531 END OF REPORT AB HELICOBACTER [id number] 18:32:00 Test Item Value Reference Range Interpretation Comments AB HELICOBACTER IGG (test code = NEGATIVE NEGATIVE HELIGAB) AB HIV 1 11:05:00 Test Item Value Reference Range Interpretation Comments AB HIV 1 2 (test Nonreactive NonReactive It is recog nized that code = XAC70CI) currently av ailable assays for thed etection of antibodies t o HIV-1 and/or HIV-2 ma y notdetect all i nfected individuals. A negative test result liz snot exclude the pos sibility of exposure to or infection withH IV. HIV antibodies may be undetectable in some stages ofthe in fection and in some cli nical conditions. PROTHROMBIN [id number] 10:21:00 Test Item Value Reference Range Interpretation [...] ion INR range Pulmonary embol ism treatment (2.0-3.0)Venous thrombosis treatmentVenous thrombosis prophylaxis (hi gh risk surgery)Prevent ion of systemic emboli sm from: Acute myocardial infa rction Valvular heart disease Atrial fibrillation Mechanical pros thetic heart valves (2.5-3.5) IS PATIENT ON ANTICOAGULANTS? NTHROMBOPLASTIN TIME [id number] 10:21:00 Test Item Value Reference Range Interpretation Comments THROMBOPLASTIN TIME PARTIAL 35.3 seconds 23.0-37.0 N (test code = PTT) IS PATIENT ON ANTICOAGULANTS? NCOMPREHENSIVE METABOLIC [id number] 10:18:00 Test Item Value Reference Range Interpretation [...] >3 months. [Automated mess age] The system OPENLANE generated this result transmit manan reference range [...] range due ALKP) to change in reagent. [id number] 10:01:00 Test Item Value Reference Range Interpretation Comments GLYCOSYLATED HEMOGLOBIN 5.3 % HbA1 AURA NAYLOR DIAGNOSIS: (HA1C) (test code = HbA1C GLYHGB) (%) ----- ----- Diab etic >6.4Prediabetes 5.7 - 6.4Normal <5 .7 ESTIMATED AVERAGE 105 MG/DL GLUCOSE (test code = EAG) CBC W/AUTO [id number] 09:58:00 Test Item Value Reference Range Interpretation [...] REQUIRED (test code NO = MDIFF) URINALYSIS [id number] 09:25:00 Test Item Value Reference Range Interpretation [...] Urine Source? Clean CatchCOVID 19 Asymptomatic IH [id number] 07:56:00 Test Item Value Reference Range Interpretation Comments COVID 19 Asymptomatic IH AG (test NEGATIVE NEGATIVE code = COVNONPUIAG) POCT GRP A STREP (MOLECULAR)2021-04-09 00:06:00 Test Item Value Reference Range Interpretation Comments POCT GP A STREP (test negative Negative - code = 28034-2) Negative ANNY (test code = ANNY) accurate development and interpretation of all internal controls Lab Interpretation Normal (test code = 26965-5) [facility]
[2022-07-06] MEDS ORDERED: IBUPROFEN 200 MG TAB PO ONE (17:10)
[2022-07-06] MEDS ORDERED: HYDROCODONE/APAP 10/325 TAB ONE (17:11)
--- NOTE | 2022-07-06 17:48 | RAD REPORT ---
EXAM DESCRIPTION: RAD - Foot Right 3 View - 07/06/2022 5:35 pm CLINICAL HISTORY: PAIN COMPARISON: No comparisons FINDINGS: Small plantar and large posterior calcaneal spur. No acute fracture or dislocation is seen .
--- NOTE | 2022-07-06 18:05 | RAD REPORT ---
EXAM DESCRIPTION: US - Extremity Venous Uni Ltd - 07/06/2022 5:59 pm CLINICAL HISTORY: PAIN Leg swelling and edema. COMPARISON: UPPER EXTREMITY VENOUS UNILATE dated 05/24/2019 FINDINGS: Right lower extremity venous system was interrogated with Doppler technique. Normal flow, compressibility and augmentation was noted. There is no DVT present. IMPRESSION: No evidence of right lower extremity deep venous thrombosis.
--- NOTE | 2022-07-06 18:12 | EDPHYS ---
Physician Documentation [facility] Name: Esther Zimmer Age: 47 yrs Sex: Female : 1975 Arrival Date: 07/06/2022 Time: 16:55 Bed 10 Private MD: Richard Quach HPI: 07/06 17:17 This 47 yrs old Female presents to ER via Ambulatory with complaints of Foot kb Pain. 17:17 The patient presents with pain. The complaints affect the right foot. Context: The kb problem was sustained at home, resulted from an unknown cause, the patient can fully bear weight, the patient is able to ambulate. Onset: The symptoms/episode began/occurred 3 day(s) ago. Modifying factors: The symptoms are alleviated by nothing, the symptoms are aggravated by weight bearing, movement. Associated signs and symptoms: The patient has no apparent associated signs or symptoms. Severity of symptoms: At their worst the symptoms were mild, moderate, in the emergency department the symptoms are unchanged. The patient has not experienced similar symptoms in the past. The patient has not recently seen a physician. 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 - Social history:: Smoking status: Patient denies any tobacco usage or history of. ROS: 17:17 Constitutional: Negative for fever, chills, and weight loss. kb 17:17 MS/extremity: Positive for pain, of the dorsum of right foot. 17:17 All other systems are negative. Exam: 17:17 Constitutional: This is a well developed, well nourished patient who is awake, alert, kb and in no acute distress. Head/Face: Normocephalic, atraumatic. Cardiovascular: Regular rate and rhythm with a normal S1 and S2. No gallops, murmurs, or rubs. No pulse deficits. Respiratory: Respirations even and unlabored. No increased work of breathing. Talking in full sentences Abdomen/GI: Soft, non-tender. No distention Skin: Warm, dry with normal turgor. Normal color. Neuro: Awake and alert, GCS 15, oriented to person, place, time, and situation. Moves all extremities. Normal gait. 17:17 Musculoskeletal/extremity: Extremities: grossly normal except: noted in the dorsum of right foot: pain, tenderness, ROM: intact in all extremities, Circulation is intact in all extremities. Sensation intact. Weight bearing: able to fully bear weight. Vital Signs: 16:59 Pulse 80; Resp 16; Temp 97.3(TE); Pulse Ox 98% on R/A; Weight 117.93 kg; Height 5 ft. 6 ss in. (167.64 cm); Pain 10/10; 17:02 BP 100 / 80; ss 16:59 Body Mass Index 41.96 (117.93 kg, 167.64 cm) ss MDM: 16:58 Patient medically screened. kb 17:16 Differential diagnosis: closed fracture, contusion. Data reviewed: vital signs, nurses kb notes. ED course: Patient is a 47-year-old female who presents for right foot pain that started 3 days ago. Reports she recently had brain surgery on 06/22/22, called her doctor and was told to come get an ultrasound to make sure she did not have a DVT. On exam patient has tenderness to dorsum of right foot. Ambulates with steady gait with a slight limp. No tenderness to calf. No redness. X-ray and ultrasound ordered.. 18:11 Differential diagnosis: fracture, sprain. Counseling: I had a detailed discussion with kb the patient and/or guardian regarding: the historical points, exam findings, and any diagnostic results supporting the discharge/admit diagnosis, radiology results, the need for outpatient follow up, a family practitioner, to return to the emergency department if symptoms worsen or persist or if there are any questions or concerns that arise at home. 03 17:02 Order name: Foot Right 3 View XRAY; Complete Time: 17:53 kb 07/06 17:02 Order name: US Extremity Venous Unilateral Ltd; Complete Time: 18:11 kb Administered Medications: 17:09 Drug: Columbia (HYDROcodone-acetaminophen) 10 mg-325 mg 1 tabs Route: PO; ss 17:09 Drug: Ibuprofen 600 mg Route: PO; ss Disposition Summary: 07/06/22 18:12 Discharge Ordered Location: Home kb Condition: Stable kb Diagnosis - Pain in right foot kb Followup: kb - With: Emergency Department - When: As needed - Reason: Worsening of condition Followup: kb - With: Private Physician - When: 2 - 3 days - Reason: Recheck today's complaints, Continuance of care, Re-evaluation by your physician Discharge Instructions: - Discharge Summary Sheet kb - Musculoskeletal Pain kb Forms: - Medication Reconciliation Form kb - Thank You Letter kb - Antibiotic Education kb - Prescription Opioid Use kb Prescriptions: - Ibuprofen 800 mg Oral Tablet - take 1 tablet by ORAL route every 8 hours As needed take with food; 30 tablet; kb Refills: 0, Product Selection Permitted Signatures: Dispatcher [employer] EDMS Sade Ruvalcaba, HIGH PRESSURE KETTLE OPERATOR-C KANNAN-Shelley Dawson, RN RN ss Corrections: (The following items were deleted from the chart) 17:03 17:02 PSHx: tumor removed; ss ss
--- NOTE | 2022-07-06 18:12 | ER ---
Nurse's Notes [facility] Name: Esther Zimmer Age: 47 yrs Sex: Female : 1975 Arrival Date: 07/06/2022 Time: 16:55 Bed 10 Private MD: Diagnosis: Pain in right foot Presentation: 07/06 16:59 Chief complaint: Patient states: R foot pain x 3 days. Pt states that her doctor just ss wanted her to make sure she doesn't have a blood clot. Coronavirus screen: Client denies travel out of the [place] in the last 14 days. Ebola Screen: Patient denies exposure to infectious person. Patient denies travel to an Ebola-affected area in the 21 days before illness onset. Initial Sepsis Screen: Does the patient meet any 2 criteria? No. Patient's initial sepsis screen is negative. Does the patient have a suspected source of infection? No. Patient's initial sepsis screen is negative. Risk Assessment: Do you want to hurt yourself or someone else? Patient reports no desire to harm self or others. Onset of symptoms was July 03, 2022. 16:59 Method Of Arrival: Ambulatory ss 16:59 Acuity: CARMITA 3 ss Triage Assessment: 17:09 General: Appears in no apparent distress. comfortable, Behavior is calm, cooperative. ss Pain: Complains of pain in dorsum of right foot Pain currently is 10 out of 10 on a pain scale. Neuro: Level of Consciousness is awake, alert, obeys commands. Cardiovascular: Pulses are palpable in right dorsalis pedis artery and left dorsalis pedis artery. Respiratory: Airway is patent Respiratory effort is even, unlabored, Respiratory pattern is regular, symmetrical. Derm: Skin is pink, warm \T\ dry. normal. Musculoskeletal: Swelling absent. 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 - Social history:: Smoking status: Patient denies any tobacco usage or history of. Assessment: 17:21 Reassessment: SEE TRIAGE ASSESSMENT. ss Vital Signs: 16:59 Pulse 80; Resp 16; Temp 97.3(TE); Pulse Ox 98% on R/A; Weight 117.93 kg; Height 5 ft. 6 ss in. (167.64 cm); Pain 10/10; 17:02 BP 100 / 80; ss 16:59 Body Mass Index 41.96 (117.93 kg, 167.64 cm) ss ED Course: 16:55 Patient arrived in ED. rg4 16:58 Sade Ruvalcaba FNP-C is PSYCHIATRICP. kb 16:58 Richard Alcaraz MD is Attending Physician. kb 17:02 Triage completed. ss 17:02 Arm band placed on right wrist. ss 17:21 Shelley Beaulieu, RN is Primary Nurse. ss 17:37 Foot Right 3 View XRAY In Process Unspecified. EDMS 18:01 US Extremity Venous Unilateral Ltd In Process Unspecified. EDMS Administered Medications: 17:09 Drug: [place] (HYDROcodone-acetaminophen) 10 mg-325 mg 1 tabs Route: PO; ss 17:09 Drug: Ibuprofen 600 mg Route: PO; ss Outcome: 18:12 Discharge ordered by . kb 18:27 Patient left the ED. [email or web address] Signatures: Dispatcher [employer] EDMS Sade Ruvalcaba FNP-C FNP-Shelley Dawson, NELIA RN Kristi Pringle rg4 Shruthi Pink RN RN 5 Corrections: (The following items were deleted from the chart) 17:03 17:02 PSHx: tumor removed; ss ss
[2022-07-06 18:34] VITALS: TEMP 97.3; O2SAT 98
[2022-07-06 18:35] VITALS: BP 100/80
== END 2022-07-06 18:27 | disposition home or self-care (01) ==
LOC: ER 16:52
DX: M79.671 Pain in right foot (principal)
CPT/HCPCS: 93971

== ENCOUNTER 2022-11-01 12:07 | Emergency (ER) | payer BC ==
--- OUTSIDE RECORDS SUMMARY | 2022-11-01 12:21 | XMS REPORT | Continuity of Care Document ---
:1975 Author Organization [facility] t Address [address] [place] [address] Care Team Providers Name Role Phone System, Pcp Not In Primary Care Physician Josselin Reardon Attending Clinician Unavailable MARQUES WHALEN Attending Clinician Unavailable YFN HAMILTON Attending Clinician Unavailable BHAVIN DELUNA Attending Clinician Unavailable AMISH ESCAMILLA Attending Clinician Unavailable HIMANSHU FREIRE Attending Clinician Unavailable oMuna BRUNNER, Himanshu Castaneda Attending Clinician Doctor Unassigned, [place] Attending Clinician Unavailable KHALIF GREEN Attending Clinician Unavailable Norma HOPPER, Khalif Attending Clinician KHALIF GREEN Attending Clinician Unavailable Vanita HOPPER, Javier Castro Attending Clinician Jonny HOPPER, Vanessa Lovelace Attending Clinician [phone] Angelo LUDWIG, Maria D Pulliam Attending Clinician [phone] MARIA D STEPHENS Attending Clinician Unavailjose Rios MD, Gonsalo Attending Clinician GONSALO RIOS Attending Clinician Unavailable Elvis, Surgeon Attending Clinician Unavailable Krupa Montoya MD Attending Clinician LAB90 Attending Clinician Unavailable LUIS MIGUEL MCNEIL Attending Clinician Unavailable MD GELY Attending Clinician Unavailable JOMAR ACOSTA Attending Clinician Unavailable Jomar Hawkins Attending Clinician Shakira Villanueva Attending Clinician Joy BRUNNER-CYfn Attending Clinician LISBET RAWLS Attending Clinician Unavailable [id number] Attending Clinician Unavailable LAB47 Attending Clinician Unavailable Sachi Hawley PA-C Attending Clinician SACHI HAWLEY Attending Clinician Unavailable Marlo White Attending Clinician MARLO VALERO Attending Clinician Unavailable Isaiah Warren Attending Clinician Unavailable LAYLA PINEDA Attending Clinician Unavailable Layla Eckert Attending Clinician SAMANTHA MURILLO Attending Clinician Unavailable HIMANSHU FREIRE Admitting Clinician Unavailable KHALIF GREEN Admitting Clinician Unavailable GONSALO RIOS Admitting Clinician Unavailable Isaiah Warren Admitting Clinician Unavailable Payers Payer Name Policy Type Policy Number Effective Date Expiration Date S [facility] 2 [id number] 2019 00:00:00 [employer] [place] [id number] 2020 00:00:00 PPO/EPO - BCBS [id number] WOMEN'S [id number] HEALTH PROGRAM - MEDICAID CVCP-BCBS [id number] Blue Cross Blue C1 [id number] 2020 [facility] 00:00:00 - [facility] Problems Condition Condition Condition Status Onset Resolution Last Treating Co mments Source Name Details Category Date Date Treatment Clinician Date Brain Brain Disease Recurre [facility]: [facility] [place] Meningioma Meningioma Disease Recurre [facility]: Medical [place] Preop Preop Disease Active [facility] testing testing 2-15 [facility] 00:[facility]: Medical [place] Seizures Seizures Disease Active [facility]: Medical [place] Hypothyroi Hypothyroi Disease Active [facility] dism dism 2[facility] Cerebellar Cerebellar Disease Active [facility] edema edema 2-15 [facility] 00:[facility]: Medical [place] Post-op Post-op Disease Active [facility] pain pain [facility] 00:[facility]: Medical 00 [place] BMI BMI Disease Active Jodie 45.0-49.9, 45.0-49.9, [...] or of 50 or Branch higher higher [id number] Morbid Problem Active Commo n 9104 (severe) Spirit obesity - [facility] due to St excess [facility] [id number] Moderate Problem Active Comm on episode of Spirit recurrent - [facility] major depressive [facility] No known No known Disease [facility] active active College problems problems of Medicin e Insomnia Insomnia Problem Active 2021-04-23 Memoria due to due to 03:46:04 l other other Mitch mental mental disorder disorder Active Problem 04/23/2021 [facility] Major Major Problem Active 2021-04-23 Memor ia depressive depressive 03:46:04 l disorder, disorder, Herm inocencio single single episode, episode, severe severe Active Problem 04/23/2021 [facility] Generalize Generaliz Problem Active 2021-04-23 Memoria d anxiety ed anxiety 03:46:04 l disorder disorder Yared n Active Problem 04/23/2021 [facility] Allergies, Adverse Reactions, Alerts Allergy Allergy Status Severity Reaction(s) Onset Inactive Treating Comm ents Source Name Type Date Date Clinician No Known DA Active U 2020-05 [facility] Allergie 2- [facility] [place] 00:00: e 00 Medical [place] N.K.D.A. N.K.D.A. Active Info Not 2020-05 Amadou breana Available 2-16 l 00:00: [place] 00 No Known DA Active U [facility] Allergie 8-03 [facility] [place] 00:00: e 00 Medical [place] NO KNOWN Allergy Active [facility] NO KNOWN Drug Active Univers ALLERGIE Class ity of S [facility] Social History Social Habit Start Date Stop Date Quantity Comments Source Gender identity 2019-05-16 Identifies as Jodie Matos - 18:51:18 female gender External (finding) Sexual orientation 2019-05-16 Heterosexual Amarilys Matos - 18:51:18 (finding) External History of Tobacco [facility] - Use [facility] History SDOH [facility] Alcohol Comment Medical C enter History SDOH [facility] Alcohol Std Drinks Medica l Center History SDOH [facility] Alcohol Binge Medical Cecilia ter History SDOH [facility] Transport [facility] Exposure to 2022-09-03 2022-09-13 Not sure University of SARS-CoV-2 (event) 00:00:00 23:30:00 [facility] Alcohol intake 2022-06-23 2022-06-[address] [facility] 00:[facility]00 00:00:00 non-drinker Medical Cente r (finding) History [facility] 2022-06-23 2022-06-[address] [facility] Transport Med 00:00:00 00:00:[address] History [facility] 2022-06-23 2022-06-[address] [facility] Housing Unable to 00:00:00 00:00:00 Medical Center Pay History [facility] 2022-06-23 2022-06-[address] [facility] Housing Places 00:00:00 00:00:00 Medical Ce nter Lived History [facility] 2022-06-23 2022-06-[address] [facility] Housing Homeless 00:00:00 00:00:00 Medical Center Last Year History [facility] 2022-06-03 2022-06-[address] [facility] Alcohol Frequency 00:00:00 00:00:00 Medical Center History of Social 2021-08-30 2021-08-30 Jodie Seybold - function 00:00:00 00:00:00 External Tobacco use and 2021-08-29 2021-08-29 Smokeless tobacco Un iversity of exposure 00:00:00 00:00:00 non-user [facility] Sex Assigned At [address] [facility] 00:00:00 00:00:00 [facility] Smoking Status Start Date Stop Date Source Never smoked tobacco Jodie Perez old - External Medications Ordered Filled Start Stop Current Ordering Indication Dosage Frequency Signature Comments Components Source Medication Medication Date Date Medication? Clinician (SIG) Name Name Mau 20 Yes TAKE ONE Ke lsey MG oral 6-14 (1) Seybold Tablet 00:00: TABLET(S) - 00 BY MOUTH Externa DAILY AT l BEDTIME NEEDED. Phentermine 2022- No 37.5mg Take 1 K elsey HCl 37.5 MG -11-01 tablet Seybo ld oral Tablet 00:00: 00:00 (37.5 mg - 00 :00 total) by Externa mouth l every morning (before breakfast) Semaglutide Yes [id number] 1.7mg Inject 1.7 Jodie -Weight 6-02 mg into Seybold Management 00:00: the skin - (Wegovy) 00 once a Externa 1.7 week l MG/0.75ML subcutaneou s Solution Auto-inject or Phentermine Yes [id number] 37.5mg Take 1 Jodie HCl 37.5 MG 6-02 capsule Seybo ld oral 00:00: (37.5 mg - Capsule 00 total) by Externa mouth l every morning Methylpredn 2022- No [id number] 40mg Jodie isolone 09-15 Seybold Acetate 19:45: 20:08 - (Depo-Medro 00 :00 Externa l) [40 l mg/mL] - Physician Administere d (J1030) Methylpredn 2022- No [id number] 40mg 40 mg, Jodie isolone 09-15 Physician Seybol d Acetate 19:45: 20:08 Administer - (Depo-Medro 00 :00 ed, ONCE, Ext darien l) [40 1 dose, On l mg/mL] - Yani Physician 09/15/22 at Administere 1445 d (J1030) iopamidol 2022- No [id number] 100mL 100 mL, Univers (ISOVUE 5-10 05-10 Intravenou ity o f 370-500 mL) 06:30: 05:34 s, ONCE, 1 [place] injection 00 :00 dose, On Medica l 100 mL Wed Branch 09/14/22 at 0130, Routine NaCl 0.9% 2022- No 1000mL at 999 Uni vers (NS) bolus 5-10 05-10 mL/hr, ity of infusion 05:45: 06:56 1,000 mL, [place] as 1,000 mL 00 :00 IV Medical Infusion, Branch ONCE, 1 dose, On 09/14/22 at 0045, BALJINDER maalox:diph 2022- No 15mL 15 mL, Uni vers enhydrAMINE 5-10 05-10 Oral, ity of :lidocaine 05:00: 05:12 ONCE, 1 [place] as 2 % viscous 00 :00 dose, On Medi maggy 1:1:1 Wed Branch ([facility] 09/14/22 at [facility]) 0000, oral Routine suspension 15 mL sucralfate 2022-0 Yes [id number] 1g Take 1 Univers 1 gram 5-10 tablet by ity of tablet 00:00: mouth [place] 00 before Medical meals and Branch at bedtime. Sucralfate 2022-0 Yes TAKE ONE Celestino sey 1 g oral 5-10 (1) Seybold Tablet 00:00: TABLET(S) - 00 BY MOUTH Externa BEFORE l MEALS AND AT BEDTIME. Sucralfate 2023-0 2023- No TAKE ONE Ke lsey 1 g oral 5-10 06-27 (1) Seybold Tablet 00:00: 00:00 TABLET(S) - 00 :00 BY MOUTH Externa BEFORE l MEALS AND AT BEDTIME. Omeprazole 2022-0 2022- No 40mg Take 1 Amarilys ey 40 MG oral 5-08 05-08 capsule Seybo ld Delayed 10:29: 00:00 (40 mg - Release 26 :00 total) by Externa Capsule mouth l daily Semaglutide 2022-0 Yes [id number] 1mg Inject 1 Jodie -Weight 5-08 mg into Seybold Management 00:00: the skin - (Wegovy) 1 00 once a Externa MG/0.5ML week l subcutaneou s Solution Auto-inject or Pantoprazol 2022-0 Yes [id number] 40mg Take 1 Jodie e Sodium 40 5-08 tablet (40 Se ybold MG oral 00:00: mg total) - Tablet 00 by mouth Externa Delayed daily l Response Famotidine 2023-0 Yes [id number] 20mg Take 1 Jodie (PEPCID) 20 5-08 tablet (20 Se ybold MG oral 00:00: mg total) - tablet 00 by mouth 2 Externa times l daily Semaglutide 2023-0 Yes [id number] 1mg Inject 1 Jodie -Weight 5-08 mg into Seybold Management 00:00: the skin - (Wegovy) 1 00 once a Externa MG/0.5ML week l subcutaneou s Solution Auto-inject or Pantoprazol 2023-0 Yes [id number] 40mg Take 1 Jodie e Sodium 40 5-08 tablet (40 Se ybold MG oral 00:00: mg total) - Tablet 00 by mouth Externa Delayed daily l Response Famotidine 3-0 Yes [id number] 20mg Take 1 Jodie (PEPCID) 20 5-08 tablet (20 Se ybold MG oral 00:00: mg total) - tablet 00 by mouth 2 Externa times l daily Pantoprazol 3-0 2023- No [id number] 40mg Take 1 Jodie e Sodium 40 5-08 06-27 tablet (40 S eybold MG oral 00:00: 00:00 mg total) - Tablet 00 :00 by mouth Externa Delayed daily l Response Famotidine 3-0 2023- No [id number] 20mg Take 1 Jodie (PEPCID) 20 5-08 06-27 tablet (20 S eybold MG oral 00:00: 00:00 mg total) - tablet 00 :00 by mouth 2 Externa times l daily Modafinil 2023-0 Yes [id number] TAKE ONE Jodie 200 MG oral 5-04 0 (1) TABLET Se ybold Tablet 00:00: (200 MG - 00 TOTAL) BY Externa MOUTH l DAILY. Modafinil 2023-0 Yes [id number] TAKE ONE Jodie 200 MG oral 5-04 0 (1) TABLET Se ybold Tablet 00:00: (200 MG - 00 TOTAL) BY Externa MOUTH l DAILY. Modafinil 2023-0 Yes [id number] TAKE ONE Jodie 200 MG oral 5-04 0 (1) TABLET Se ybold Tablet 00:00: (200 MG - 00 TOTAL) BY Externa MOUTH l DAILY. Phentermine 2023-0 Yes [id number] 37.5mg Take 1 Jodie HCl 37.5 MG 4-27 tablet Seybol d oral Tablet 00:00: (37.5 mg - 00 total) by Externa mouth l every morning (before breakfast) Phentermine 2023-0 Yes [id number] 37.5mg Take 1 Jodie HCl 37.5 MG 4-27 tablet Seybol d oral Tablet 00:00: (37.5 mg - 00 total) by Externa mouth l every morning (before breakfast) Semaglutide 2023-0 Yes [id number] .25mg Inject Jodie (0.25 or 3-02 0.25 mg Seybold 0.5 00:00: into the - mg/dose) 2 00 skin once Exte rna mg/1.5 mL a week l SQ Solution Pen-Injecto r Modafinil 2022-0 Yes [id number] 200mg Take 1 Jodie 200 MG oral 3-02 0 tablet Seybol d Tablet 00:00: (200 mg - 00 total) by Externa mouth l daily Celecoxib 2022-0 Yes [id number] 200mg Take 1 Jodie (CeleBREX) 3-02 capsule Seybol d 200 MG oral 00:00: (200 mg - Capsule 00 total) by Externa mouth 2 l times daily Acetaminoph 2022-0 Yes [id number] 1{tbl} Q4H Take 1 Jodie en-Codeine 3-02 tablet by Seyb old 300-30 MG 00:00: mouth - oral Tablet 00 every 4 Exter na hours as l needed for pain Amoxicillin 2022-0 Yes [id number] 1{tbl} Take 1 Jodie -Pot 3-02 tablet by Seybold Clavulanate 00:00: mouth 2 - 875-125 MG 00 times Externa oral Tablet daily l methylPREDN 2022-0 Yes [id number] 1{renate} Take 1 renate Jodie ISolone 4 3-02 by mouth Seybol d MG oral 00:00: See Admin - Tablet 00 Instructio Externa Therapy ns Use as l Pack directed Semaglutide Yes [id number] .25mg Inject Jodie (0.25 or 3-02 0.25 mg Seybold 0.5 00:00: into the - mg/dose) 2 00 skin once Exte rna mg/1.5 mL a week l SQ Solution Pen-Injecto r Celecoxib 2022-0 Yes [id number] 200mg Take 1 Jodie (CeleBREX) 3-02 capsule Seybol d 200 MG oral 00:00: (200 mg - Capsule 00 total) by Externa mouth 2 l times daily Acetaminoph 2022-0 Yes [id number] 1{tbl} Q4H Take 1 Jodie en-Codeine 3-02 tablet by Seyb old 300-30 MG 00:00: mouth - oral Tablet 00 every 4 Exter na hours as l needed for pain Semaglutide 2022- Yes [id number] .25mg Inject Jodie (0.25 or 07-07 0.25 mg Seybold 0.5 00:00: into the - mg/dose) 2 00 skin once Exte rna mg/1.5 mL a week l SQ Solution Pen-Injecto r Celecoxib 2022-0 Yes [id number] 200mg Take 1 Jodie (CeleBREX) 07-07 capsule Seybol d 200 MG oral 00:00: (200 mg - Capsule 00 total) by Externa mouth 2 l times daily Acetaminoph 2022-0 Yes [id number] 1{tbl} Q4H Take 1 Jodie en-Codeine - tablet by Seyb old 300-30 MG 00:00: mouth - oral Tablet 00 every 4 Exter na hours as l needed for pain Celecoxib 2022-0 2022- No [id number] 200mg Take 1 Jodie (CeleBREX) 07-07 capsule Seybo ld 200 MG oral 00:00: 00:00 (200 mg - Capsule 00 :00 total) by Externa mouth 2 l times daily Acetaminoph 2022-0 2022- No [id number] 1{tbl} Q4H Take 1 Jodie en-Codeine -11-01 tablet by y bold 300-30 MG 00:00: 00:00 mouth - oral Tablet 00 :00 every 4 Exter na hours as l needed for pain Amoxicillin 2022-0 3- No [id number] 1{tbl} Take 1 Jodie -Pot -06 12- tablet by Seybold Clavulanate 00:00: 00:00 mouth 2 - 875-125 MG 00 :00 times Externa oral Tablet daily l methylPREDN 2022-0 2022- No [id number] 1{renate} Take 1 renate Feliciano ISolone 4 07-07 by mouth Seybo ld MG oral 00:00: 00:00 See Admin - Tablet 00 :00 Instructio Externa Therapy ns Use as l Pack directed Modafinil 2022-0 2022- No 100mg Take 1 Amarilys ey 100 MG oral 07-07- tablet Seybo ld Tablet 00:00: 00:00 (100 mg - 00 :00 total) by Externa mouth l daily Ibuprofen 2022-0 2022- No TAKE ONE Celestino sey (MOTRIN) 07-06 (1) Seybold 800 MG oral 00:00: 00:00 TABLET(S) - Tablet 00 :00 BY MOUTH Externa EVERY l EIGHT HOURS NEEDED . TAKE WITH FOOD. levothyroxi 2022-0 Yes 75ug Take 1 Bayl or ne 2-24 Tablet by [place] (SYNTHROID) 11:42: mouth of 75 MCG 36 daily. Medicin tablet e ARIPiprazol 3-0 Yes 10mg QD Take [address] [facility] (ABILIFY) 2-19 by mouth Luke s 10 MG 18:13: daily. Medical disintegrat 03 Center ing tablet ARIPiprazol 2022-0 Yes 10mg QD Take [address] (ABILIFY) 2-19 by mouth Luke s 10 MG 18:13: daily. Medical disintegrat 03 Center ing tablet ARIPiprazol 3-0 Yes 10mg QD Take [address] [facility] (ABILIFY) 2-19 by mouth Luke s 10 MG 18:13: daily. Medical disintegrat 03 Center ing tablet ARIPiprazol 2022-0 Yes 10mg QD Take [address] [facility] (ABILIFY) 2-19 by mouth Luke s 10 MG 18:13: daily. Medical disintegrat 03 Center ing tablet ARIPiprazol 3-0 Yes 10mg QD Take [address] [facility] (ABILIFY) 2-19 by mouth Luke s 10 MG 18:13: daily. Medical disintegrat 03 Center ing tablet ARIPiprazol 3-0 Yes 10mg QD Take [address] [facility] (ABILIFY) 2-19 by mouth Luke s 10 MG 18:13: daily. Medical disintegrat 03 Center ing tablet ARIPiprazol 3-0 Yes 10mg QD Take [address] [facility] (ABILIFY) 2-19 by mouth Luke s 10 MG 18:13: daily. Medical disintegrat 03 Center ing tablet ARIPiprazol 3-0 Yes 10mg QD Take [address] [facility] (ABILIFY) 2-19 by mouth Luke s 10 MG 18:13: daily. Medical disintegrat 03 Center ing tablet ARIPiprazol 2022-0 Yes 10mg QD Take [address] [facility] (ABILIFY) 2-19 by mouth Luke s 10 MG 18:13: daily. Medical disintegrat 03 Center ing tablet levothyroxi 2022-0 Yes 75ug Take 75 CHI [...] MG 18:14: mouth Medical tablet 04 daily. Center semaglutide 2022-0 Yes weight loss Q7D Inject [facility] (Ozempic) 1 2-18 management subcutaneo [facility] mg/dose (2 18:14: for obese usly once Medical mg/1.5 mL) 04 patient a week Cent er PnIj (bmi >= 30) Every Tuesdays. levothyroxi 2022-0 Yes 75ug Take 75 CHI [...] MG 18:14: mouth Medical tablet 04 daily. Center semaglutide 3-0 Yes weight loss Q7D Inject [facility] [...] MG 18:14: mouth Medical tablet 04 daily. [place] semaglutide 2022-0 Yes weight loss Q7D Inject [...] MG 18:14: mouth Medical tablet 04 daily. [place] semaglutide 3-0 Yes weight loss Q7D Inject [facility] [...] MG 18:14: mouth Medical tablet 04 daily. Center semaglutide 2022-0 Yes weight loss Q7D Inject [facility] (Ozempic) 1 2-18 management subcutaneo [facility] mg/dose (2 18:14: for obese usly once Medical mg/1.5 mL) 04 patient a week Cent er PnIj (bmi >= 30) Every Tuesdays. levothyroxi 2022-0 Yes 75ug Take 75 CHI [...] MG 18:14: mouth Medical tablet 04 daily. [place] semaglutide 2022-0 Yes weight loss Q7D Inject [...] MG 18:14: mouth Medical tablet 04 daily. [place] semaglutide 2022-0 Yes weight loss Q7D Inject [...] MG 18:14: mouth Medical tablet 04 daily. [place] semaglutide 2022-0 Yes weight loss Q7D Inject [...] MG 18:14: mouth Medical tablet 04 daily. Center semaglutide 3-0 Yes weight loss Q7D Inject [facility] (Ozempic) 1 2-18 management subcutaneo [facility] mg/dose (2 18:14: for obese usly once Medical mg/1.5 mL) 04 patient a week Cent er PnIj (bmi >= 30) Every Tuesdays. famotidine 2023-0 Yes 20mg Take 1 [facility] (PEPCID) 20 2-18 tablet (20 Jamila kes MG tablet 00:00: mg total) Med ical 00 by mouth Center every 12 (twelve) hours. famotidine 2023-0 Yes 20mg Take 1 [facility] (PEPCID) 20 2-18 tablet (20 Jamila kes MG tablet 00:00: mg total) Med ical 00 by mouth Center every 12 (twelve) hours. famotidine 2023-0 Yes 20mg Take 1 [facility] (PEPCID) 20 2-18 tablet (20 Jamila kes MG tablet 00:00: mg total) Med ical 00 by mouth Center every 12 (twelve) hours. famotidine 2023-0 Yes 20mg Take 1 [facility] (PEPCID) 20 2-18 tablet (20 Jamila kes MG tablet 00:00: mg total) Med ical 00 by mouth Center every 12 (twelve) hours. famotidine 2023-0 Yes 20mg Take 1 [facility] (PEPCID) 20 2-18 tablet (20 Jamila kes MG tablet 00:00: mg total) Med ical 00 by mouth Center every 12 (twelve) hours. famotidine 2023-0 Yes 20mg Take 1 [facility] (PEPCID) 20 2-18 tablet (20 Jamila kes MG tablet 00:00: mg total) Med ical 00 by mouth Center every 12 (twelve) hours. famotidine 2023-0 Yes 20mg Take 1 [facility] (PEPCID) 20 2-18 tablet (20 Jamila kes MG tablet 00:00: mg total) Med ical 00 by mouth Center every 12 (twelve) hours. famotidine 2023-0 Yes 20mg Take 1 [facility] (PEPCID) 20 2-18 tablet (20 Jamila kes MG tablet 00:00: mg total) Med ical 00 by mouth Center every 12 (twelve) hours. famotidine 2023-0 Yes 20mg Take 1 [facility] (PEPCID) 20 2-18 tablet (20 Jamila kes MG tablet 00:00: mg total) Med ical 00 by mouth Center every 12 (twelve) hours. Famotidine 2023-0 Yes 20mg Take 20 mg K elsey (PEPCID) 20 2-18 by mouth Seyb old MG oral 00:00: every 12 - tablet 00 hours Externa l Levetiracet 2023-0 2024- No 1000mg Take 1,000 Jodie am 1000 MG 2-18 02-19 mg by Seybold oral Tablet 00:00: 05:59 mouth 2 - 00 :00 times Externa daily l Sennosides- 2022-2023- No 1{tbl} Take 1 K elsey Docusate 06-25 tablet by Seybo ld Sodium 00:00: 05:59 mouth 2 - 8.6-50 MG 00 :00 times Externa oral Tablet daily l Levetiracet 2023- No 1000mg Take 1 K elsey am 1000 MG 06-25 tablet Seybol d oral Tablet 00:00: 05:59 (1,000 mg - 00 :00 total) by Externa mouth 2 l times daily Sennosides- 2022-2023- No 1{tbl} Take 1 K elsey Docusate 06-25 tablet by Seybo ld Sodium 00:00: 05:59 mouth 2 - 8.6-50 MG 00 :00 times Externa oral Tablet daily l Levetiracet 2023- No 1000mg Take 1 K elsey am 1000 MG 06-25 tablet Seybol d oral Tablet 00:00: 05:59 (1,000 mg - 00 :00 total) by Externa mouth 2 l times daily Sennosides- 2023- No 1{tbl} Take 1 K elsey Docusate 06-25 tablet by Seybo ld Sodium 00:00: 05:59 mouth 2 - 8.6-50 MG 00 :00 times Externa oral Tablet daily l Levetiracet 2023- No 1000mg Take 1 K elsey am 1000 MG 06-25 tablet Seybol d oral Tablet 00:00: 05:59 (1,000 mg - 00 :00 total) by Externa mouth 2 l times daily levETIRAcet 2023- No 1000mg Q.5D Take [address] am (KEPPRA) 06-25 tablet [facility] 1000 MG 00:00: 23:59 (1,000 mg Medi maggy tablet 00 :00 total) by Center mouth 2 (two) times daily. senna-docus 2023- No 1{tbl} Q.5D Take [address] ate 2-18 -18 tablet by [facility] (SENOKOT S) 00:00: 23:59 mouth 2 Me dical 8.6-50 mg 00 :00 (two) Center per tablet times daily. levETIRAcet 2022-2023- No 1000mg Q.5D Take [address] am (KEPPRA) 2-18 -18 tablet [facility] 1000 MG 00:00: 23:59 (1,000 mg Medi maggy tablet 00 :00 total) by Center mouth 2 (two) times daily. senna-docus 2022-2023- No 1{tbl} Q.5D Take [address] ate 2-18 -18 tablet by [facility] (SENOKOT S) 00:00: 23:59 mouth 2 Me dical 8.6-50 mg 00 :00 (two) Center per tablet times daily. levETIRAcet 2022-2023- No 1000mg Q.5D Take [address] am (KEPPRA) 2-25 06-18 tablet [facility] 1000 MG 00:00: 23:59 (1,000 mg Medi maggy tablet 00 :00 total) by Center mouth 2 (two) times daily. senna-docus 2022-2023- No 1{tbl} Q.5D Take [address] ate 18 -18 tablet by [facility] (SENOKOT S) 00:00: 23:59 mouth 2 Me dical 8.6-50 mg 00 :00 (two) Center per tablet times daily. levETIRAcet 0 2023- No 1000mg Q.5D Take [address] am (KEPPRA) 2-18 -18 tablet [facility] 1000 MG 00:00: 23:59 (1,000 mg Medi maggy tablet 00 :00 total) by Center mouth 2 (two) times daily. senna-docus 2022-0 2023- No 1{tbl} Q.5D Take [address] ate 2-18 02-18 tablet by [facility] (SENOKOT S) 00:00: 23:59 mouth 2 Me dical 8.6-50 mg 00 :00 (two) Center per tablet times daily. levETIRAcet 2022-0 2023- No 1000mg Q.5D Take [address] am (KEPPRA) 2-18 -18 tablet [facility] 1000 MG 00:00: 23:59 (1,000 mg Medi maggy tablet 00 :00 total) by Center mouth 2 (two) times daily. senna-docus 2023- No 1{tbl} Q.5D Take [address] ate -18 -18 tablet by [facility] (SENOKOT S) 00:00: 23:59 mouth 2 Me dical 8.6-50 mg 00 :00 (two) Center per tablet times daily. levETIRAcet 2023- No 1000mg Q.5D Take [address] am (KEPPRA) 06-25-18 tablet [facility] 1000 MG 00:00: 23:59 (1,000 mg Medi maggy tablet 00 :00 total) by Center mouth 2 (two) times daily. senna-docus 2023- No 1{tbl} Q.5D Take [address] ate 06-25-18 tablet by [facility] (SENOKOT S) 00:00: 23:59 mouth 2 Me dical 8.6-50 mg 00 :00 (two) Center per tablet times daily. levETIRAcet 2023- No 1000mg Q.5D Take [address] am (KEPPRA) 06-25-18 tablet [facility] 1000 MG 00:00: 23:59 (1,000 mg Medi maggy tablet 00 :00 total) by Center mouth 2 (two) times daily. senna-docus 2023- No 1{tbl} Q.5D Take [address] ate 18 -18 tablet by [facility] (SENOKOT S) 00:00: 23:59 mouth 2 Me dical 8.6-50 mg 00 :00 (two) Center per tablet times daily. levETIRAcet 2023- No 1000mg Q.5D Take [address] am (KEPPRA) 2-18 -18 tablet [facility] 1000 MG 00:00: 23:59 (1,000 mg Medi maggy tablet 00 :00 total) by Center mouth 2 (two) times daily. senna-docus 2022-2023- No 1{tbl} Q.5D Take [address] ate 2-18 02-18 tablet by [facility] (SENOKOT S) 00:00: 23:59 mouth 2 Me dical 8.6-50 mg 00 :00 (two) Center per tablet times daily. levETIRAcet 2023- No 1000mg Q.5D Take [address] am (KEPPRA) 06-25- tablet [facility] 1000 MG 00:00: 23:59 (1,000 mg Medi maggy tablet 00 :00 total) by Center mouth 2 (two) times daily. senna-docus 2023- No 1{tbl} Q.5D Take [address] ate 06-25 tablet by [facility] (SENOKOT S) 00:00: 23:59 mouth 2 Me dical 8.6-50 mg 00 :00 (two) Center per tablet times daily. Sennosides- 2022- No 1{tbl} Take 1 K elsey Docusate 06-25 tablet by Searasho ld Sodium 00:00: 00:00 mouth 2 - 8.6-50 MG 00 :00 times Externa oral Tablet daily l Famotidine 2022- No 20mg Take 20 mg Jodie (PEPCID) 20 06-25-08 by mouth Sey bold MG oral 00:00: 00:00 every 12 - tablet 00 :00 hours Externa l HYDROcodone 2022- No 1{tbl} Q.25D Take 1 Jodie -Acetaminop 06-25-08 tablet by Se pérez hen 10-325 00:00: 00:00 mouth - MG oral 00 :00 every 6 Externa Tablet hours as l needed Dexamethaso 2022- No TAKE THREE Jodie ne 2 MG 06-25- (3) Seybold oral Tablet 00:00: 00:00 TABLETS BY - 00 :00 MOUTH 2 Externa TIMES l DAILY WITH BREAKFAST AND DINNER FOR 2 DAYS, THEN 2 TABLETS 2 TIMES DAILY WITH BREAKFAST AND DINNER HYDROcodone 2022- No 1{tbl} Q.25D Take 1 Jodie -Acetaminop 06-25- tablet by Se pérez hen 10-325 00:00: 05:59 mouth - MG oral 00 :00 every 6 Externa Tablet hours as l needed HYDROcodone 2022-0 2022- No 1{tbl} Take [address] -acetaminop 2-18 02-28 tablet by Jamila kraft (NORCO 00:00: 23:59 mouth Medic al 10-325) 00 :00 every 6 Center 10-325 mg (six) per tablet hours as needed for Pain for up to 10 days. Max Daily Amount: 4 tablets HYDROcodone 2022-0 2022- No 1{tbl} Take [address] -acetaminop 2-18 02-28 tablet by Jamila kraft (NORCO 00:00: 23:59 mouth Medic al 10-325) 00 :00 every 6 Center 10-325 mg (six) per tablet hours as needed for Pain for up to 10 days. Max Daily Amount: 4 tablets HYDROcodone 2022-0 2022- No 1{tbl} Take [address] -acetaminop 2-18 02-28 tablet by Jamila kraft (NORCO 00:00: 23:59 mouth Medic al 10-325) 00 :00 every 6 Center 10-325 mg (six) per tablet hours as needed for Pain for up to 10 days. Max Daily Amount: 4 tablets HYDROcodone 2022-0 2022- No 1{tbl} Take [address] -acetaminop 2-18 02-28 tablet by Jamila kraft (NORCO 00:00: 23:59 mouth Medic al 10-325) 00 :00 every 6 Center 10-325 mg (six) per tablet hours as needed for Pain for up to 10 days. Max Daily Amount: 4 tablets HYDROcodone 2022-0 2022- No 1{tbl} Take [address] -acetaminop 2-18 02-28 tablet by Jamila kraft (NORCO 00:00: 23:59 mouth Medic al 10-325) 00 :00 every 6 Center 10-325 mg (six) per tablet hours as needed for Pain for up to 10 days. Max Daily Amount: 4 tablets HYDROcodone 2022-0 2022- No 1{tbl} Take [address] -acetaminop 2-18 02-28 tablet by Jamila kraft ([facility]CO 00:00: 23:59 mouth Medic al 10-325) 00 :00 every 6 Center 10-325 mg (six) per tablet hours as needed for Pain for up to 10 days. Max Daily Amount: 4 tablets HYDROcodone 2022-2022- No 1{tbl} Take [address] -acetaminop 2-18 -28 tablet by Jamila kraft ([facility]CO 00:00: 23:59 mouth Medic al 10-325) 00 :00 every 6 Center 10-325 mg (six) per tablet hours as needed for Pain for up to 10 days. Max Daily Amount: 4 tablets HYDROcodone 2022-2022- No 1{tbl} Take [address] -acetaminop 2-18 - tablet by Jamila kraft ([facility]CO 00:00: 23:59 mouth Medic al 10-325) 00 :00 every 6 Center 10-325 mg (six) per tablet hours as needed for Pain for up to 10 days. Max Daily Amount: 4 tablets HYDROcodone 2022-2022- No 1{tbl} Take [address] -acetaminop 2-18 - tablet by Jamila kraft ([facility]CO 00:00: 23:59 mouth Medic al 10-325) 00 :00 every 6 Center 10-325 mg (six) per tablet hours as needed for Pain for up to 10 days. Max Daily Amount: 4 tablets dexAMETHaso 2022-2022- No Take [address] [facility] 2-18 -25 tablets (6 [facility] ([facility]RON) 00:00: 23:59 mg [...] and dinner for 1 day. dexAMETHaso 2022- No Take [address] [facility] ne 2-18 -25 tablets (6 [facility] (DECADRON) 00:00: 23:59 mg [...] breakfast and dinner for 1 day. dexAMETHaso 2022-0 2022- No Take 3 [facility] ne 2-18 -25 tablets (6 [facility] (DECADRON) 00:00: 23:59 mg [...] breakfast and dinner for 1 day. dexAMETHaso 2022-2022- No Take 3 [facility] 18 -25 tablets (6 [facility] (DECADRON) 00:00: 23:59 mg [...] breakfast and dinner for 1 day. dexAMETHaso 2022-0 2022- No Take 3 [facility] ne 218 -25 tablets (6 [facility] (DECADRON) 00:00: 23:59 mg [...] breakfast and dinner for 1 day. dexAMETHaso No Take [address] [facility] ne 2-18 02-25 [...] breakfast and dinner for 1 day. dexAMETHaso No Take [address] [facility] ne 2-18 -25 tablets (6 [facility] (DECADRON) 00:00: 23:59 mg [...] breakfast and dinner for 1 day. dexAMETHaso No Take [address] [facility] ne 2-18 -25 tablets (6 [facility] (DECADRON) 00:00: 23:59 mg [...] breakfast and dinner for 1 day. dexAMETHaso No Take [address] [facility] ne 2-18 -25 tablets (6 [facility] (DECADRON) 00:00: 23:59 mg [...] breakfast and dinner for 1 day. semaglutide 3-0 Yes weight loss Q7D Inject [facility] [...] 09:45: mouth Medical tablet 07 daily. Center Duloxetine 3-0 Yes 60mg Take 60 mg K elsey HCl 60 MG 2-02 by mouth 2 Seyb [address] 00:00: times - Particles 00 daily Externa l Duloxetine 3-0 Yes 60mg Take 1 Kelse y HCl 60 MG 2-02 capsule Seybold oral Cap DR 00:00: (60 mg - Particles 00 total) by Exter na mouth 2 l times daily Duloxetine 2023-0 Yes 60mg Take 1 Kelse [facility] HCl 60 MG 2-02 capsule Seybold oral Cap DR 00:00: (60 mg - Particles 00 total) by Exter na mouth 2 l times daily Duloxetine 2023-0 Yes 60mg Take 1 Kelse y HCl 60 MG 2-02 capsule Seybold oral Cap DR 00:00: (60 mg - Particles 00 total) by Exter na mouth 2 l times daily levothyroxi 3-0 Yes 75ug Take [address] [facility] ne 1-31 mcg by [facility] (SYNTHROID, 16:04: mouth Medic al LEVOTHROID) 16 Every Center 75 MCG morning on tablet an empty stomach. buPROPion 2022-0 Yes QD Take [facility] (WELLBUTRIN 1-31 [facility] XL) 150 MG 16:04: daily Medica l 24 hr 16 Takes 3 Center tablet tabs . modafiniL 0 Yes 100mg QD Take [address] [facility] (PROVIGIL) 1-31 mg by [facility] 100 MG 16:04: mouth Medical tablet 16 daily. Center semaglutide Yes weight loss Q7D Inject [facility] (Ozempic) 06-07 management subcutaneo [facility] mg/dose (2 16:04: for obese usly once Medical mg/1.5 mL) 16 patient a week Cent er PnIj (bmi >= 30) Every Tuesdays. levothyroxi Yes 75ug Take [address] [facility] [address] ne 1-31 mcg by [facility] (SYNTHROID, 16:04: mouth Medic al LEVOTHROID) 16 Every Center 75 MCG morning on tablet an empty stomach. buPROPion 0 Yes QD Take [facility] (WELLBUTRIN 1-31 mouth [facility] XL) 150 MG 16:04: daily Medica l 24 hr 16 Takes 3 Center tablet tabs . modafiniL 0 Yes 100mg QD Take [address] (PROVIGIL) 1-31 mg by [facility] 100 MG 16:04: mouth Medical tablet 16 daily. Center semaglutide Yes weight loss Q7D Inject [facility] (Ozempic) 06-07 management subcutaneo [facility] mg/dose (2 16:04: for obese usly once Medical mg/1.5 mL) 16 patient a week Cent er PnIj (bmi >= 30) Every Tuesdays. levothyroxi 2021-05 Yes 75ug Take 75 [facility] ne 2-21 mcg by [facility] (SYNTHROID) 12:45: mouth of 75 MCG 12 daily. Medicin tablet e modafinil 2021-05 Yes 100mg Take 100 [place] [facility] (PROVIGIL) 2-16 mg by [facility] 100 MG 00:00: mouth of tablet 00 daily. Medicin e modafinil 2021-05 Yes 100mg Take 1 [facility] (PROVIGIL) 2-16 Tablet by [facility] federico 100 MG 00:00: mouth of tablet 00 daily. Medicin e Modafinil 2021-05 Yes [id number] 100mg Take 1 Jodie 100 MG oral 2-16 0 tablet Seybol d Tablet 00:00: (100 mg - 00 total) by Externa mouth l daily Semaglutide 2021-05 Yes [id number] 2mg Inject 2 Jodie , 2 2-16 mg into Seybold MG/DOSE, 00:00: the skin - (Ozempic, 2 00 once a Control Electrician a MG/DOSE,) week l subcutaneou s Modafinil 2021-05- No [id number] 100mg Take 1 Jodie 100 MG oral 2-16 03-02 0 tablet Seybo ld Tablet 00:00: 00:00 (100 mg - 00 :00 total) by Externa mouth l daily Semaglutide 2021-05- No [id number] 2mg Inject 2 Jodie , 2 2-16 03-02 mg into Seybold MG/DOSE, 00:00: 00:00 the skin - (Ozempic, 2 00 :00 once a Control Electrician a MG/DOSE,) week l subcutaneou s OZEMPIC 2 2021-05 Yes 2mg Inject 2 [facility] mg/dose 2-15 mg into College injection 00:00: the skin of 00 every 7 Medicin days. e OZEMPIC 2 2021-05 Yes 2mg Inject 2 [facility] mg/dose 2-15 mg into College injection 00:00: the skin of 00 every 7 Medicin days. e Semaglutide 2021-05- No [id number] 2mg Inject 2 Jodie , 2 2-14 12-16 mg into Seybold MG/DOSE, 00:00: 00:00 the skin - (Ozempic, 2 00 :00 once a Control Electrician a MG/DOSE,) week l subcutaneou s zolpidem 2021-05 Yes 12.5mg Take 12.5 [facility] (AMBIEN CR) 2-01 mg by College 12.5 MG CR 00:00: mouth of tablet 00 nightly as Medicin needed. e zolpidem 2021-05 Yes 12.5mg Take 1 [facility] (AMBIEN CR) 2-01 Tablet by [facility] lege 12.5 MG CR 00:00: mouth of tablet 00 nightly as Medicin needed. e celecoxib 2021-05 Yes 200mg Take 200 [place] [facility] (CELEBREX) 1-16 mg by [place] 200 MG 00:00: mouth of capsule 00 daily. Medicin e celecoxib 2021-05 Yes 200mg Take 1 [facility] (CELEBREX) 1-16 capsule by Col lege 200 MG 00:00: mouth of capsule 00 daily. Medicin e phentermine 2021-05 Yes 37.5mg Take 37.5 [place] (ADIPEX-P) 1-15 mg by [facility] 37.5 MG 00:00: mouth of tablet 00 every Medicin morning e (before breakfast) . phentermine 2021-05 Yes 37.5mg Take 1 [facility] (ADIPEX-P) 1-[address] [facility] 37.5 MG 00:00: mouth of tablet 00 every Medicin morning e (before breakfast) . Bupropion 2021-05 Yes [id number] 450mg Take 3 K elsey HCL XL 150 1-15 tablets Seybol d MG OR TB24 00:00: (450 mg - 00 total) by Externa mouth l every morning Celecoxib 2021-05 Yes [id number] 200mg Take 1 Jodie (CeleBREX) 1-15 capsule Seybol d 200 MG oral 00:00: (200 mg - Capsule 00 total) by Externa mouth 2 l times daily Semaglutide 2021-05 Yes [id number] 2mg Inject 2 Jodie , 2 1-15 mg into Seybold MG/DOSE, 00:00: the skin - (Ozempic, 2 00 once a Control Electrician a MG/DOSE,) week l subcutaneou s Phentermine 2021-05 Yes [id number] 37.5mg Take 1 Jodie HCl 37.5 MG 1-15 tablet Seybol d oral Tablet 00:00: (37.5 mg - 00 total) by Externa mouth l every morning (before breakfast) Bupropion 2021-05 Yes [id number] 450mg Take 3 K elsey HCL XL 150 1-15 tablets Seybol d MG OR TB24 00:00: (450 mg - 00 total) by Externa mouth l every morning Celecoxib 2021-05 Yes [id number] 200mg Take 1 Jodie (CeleBREX) 1-15 capsule Seybol d 200 MG oral 00:00: (200 mg - Capsule 00 total) by Externa mouth 2 l times daily Phentermine 2021-05 Yes [id number] 37.5mg Take 1 Jodie HCl 37.5 MG 1-15 tablet Seybol d oral Tablet 00:00: (37.5 mg - 00 total) by Externa mouth l every morning (before breakfast) Bupropion 2021-05 Yes [id number] 450mg Take 3 K elsey HCL XL 150 1-15 tablets Seybol d MG OR TB24 00:00: (450 mg - 00 total) by Externa mouth l every morning Phentermine 2021-05 Yes [id number] 37.5mg Take 1 Jodie HCl 37.5 MG 1-15 tablet Seybol d oral Tablet 00:00: (37.5 mg - 00 total) by Externa mouth l every morning (before breakfast) Bupropion 2021-05 Yes [id number] 450mg Take 3 K elsey HCL XL 150 1-15 tablets Seybol d MG OR TB24 00:00: (450 mg - 00 total) by Externa mouth l every morning Bupropion 2021-05 Yes [id number] 450mg Take 3 K elsey HCL XL 150 1-15 tablets Seybol d MG OR TB24 00:00: (450 mg - 00 total) by Externa mouth l every morning Bupropion 2021-05- No [id number] 450mg Take 3 Jodie HCL XL 150 1-15 06-27 tablets Seybo ld MG OR TB24 00:00: 00:00 (450 mg - 00 :00 total) by Externa mouth l every morning Celecoxib 2021-05- No [id number] 200mg Take 1 Jodie (CeleBREX) 1-15 03-02 capsule Seybo ld 200 MG oral 00:00: 00:00 (200 mg - Capsule 00 :00 total) by Externa mouth 2 l times daily OZEMPIC (1 2021-05- No [id number] 1mg Inject 1 Jodie mg/dose) 4 1-14 11-15 mg into Seybo ld mg/3 mL SQ 00:00: 00:00 the skin - Solution 00 :00 once a Externa Pen-Injecto week l r aripiprazol 2021-05 Yes 10mg Take 10 mg [facility] e (ABILIFY) 1-08 by mouth Tato ege 10 MG 00:00: daily. of tablet 00 Medicin e Desvenlafax 2021-05 Yes 1{tbl} Take 1 [facility] ine 1-08 Tablet by College Succinate 00:00: mouth of 100 MG TB24 00 daily. Medici n e aripiprazol 2021-05 Yes 10mg Take 1 [facility] (ABILIFY) 1-08 Tablet by Col lege 10 MG 00:00: mouth of tablet 00 daily. Medicin e Desvenlafax 2021-05 Yes 1{tbl} Take 1 [facility] ine 1-08 Tablet by College Succinate 00:00: mouth of 100 MG TB24 [...] HR Aripiprazol 2021-05 Yes 1{tbl} Take 1 Manuel rodriguez e 10 MG 1-08 tablet by Seybold oral Tablet 00:00: mouth - 00 daily Externa l Desvenlafax 2021-05 Yes Take by Celestino bautista ine 1-08 mouth Seybold Succinate 00:00: daily - 100 MG oral 00 Externa TABLET SR l 24 HR Aripiprazol 2021-05 Yes 1{tbl} Take 1 Manuel rodriguez e 10 MG 1-08 tablet by Seybold oral Tablet 00:00: mouth - 00 daily Externa l Desvenlafax 2021-05- No Take by Manuel rodriguez ine 08 06-27 mouth Seybold Succinate 00:00: 00:00 daily - 100 MG oral 00 :00 Externa TABLET SR l 24 HR buPROPion 2021-05 Yes 300mg Take 300 [facility] (WELLBUTRIN 1-07 mg by [facility] ) 150 MG XL 00:00: mouth of tablet 00 every Medicin morning. e clonazepam 2021-05 Yes .5mg Take 0.5 [place] [facility] (KLONOPIN) 1-07 mg by [facility] 0.5 MG 00:00: mouth 2 of tablet 00 times Medicin daily as e needed. buPROPion 2021-05 Yes 300mg Take 2 [facility] (WELLBUTRIN 1-07 Tablets by Ma barber ) 150 MG XL 00:00: mouth of tablet 00 every Medicin morning. e clonazepam 2021-05 Yes .5mg Take 1 [facility] (KLONOPIN) 1-[address] [facility] 0.5 MG 00:00: mouth 2 of tablet 00 times Medicin daily as e needed. Phentermine 2021-05- No [id number] 37.5mg Take 1 Jodie HCl 37.5 MG 0-10 11-15 tablet Seybo ld oral Tablet 00:00: 00:00 (37.5 mg - 00 :00 total) by Externa mouth l every morning (before breakfast) methylPREDN 2021- No [id number] 1{renate} Take 1 renate Feliciano ISolone 4 9- 11-15 by mouth Seybo ld MG oral 00:00: 00:00 See Admin - Tablet 00 :00 Instructio Externa Therapy ns Use as l Pack directed nirmatrelvi Yes [id number] 3{tbl} Take 3 Univers r-ritonavir 9-11 tablets by it y of (PAXLOVID, 00:00: mouth in [place] as EUA,) 300 00 the Medical mg (150 mg morning Branch x 2)-100 mg and 3 tablet tablets in the evening. nirmatrelvi Yes [id number] 3{tbl} Take 3 Univers r-ritonavir 9-11 tablets by it y of (PAXLOVID, 00:00: mouth in [place] as EUA,) 300 00 the Medical mg (150 mg morning Branch x 2)-100 mg and 3 tablet tablets in the evening. nirmatrelvi Yes [id number] 3{tbl} Take 3 Univers r-ritonavir 9-11 tablets by it y of (PAXLOVID, 00:00: mouth in [place] as EUA,) 300 00 the Medical mg (150 mg morning Branch x 2)-100 mg and 3 tablet tablets in the evening. codeine-gua 2021- No [id number] 5mL Take 5 mL Univers ifenesin 01-16 by mouth ity of 10-100 mg/5 00:00: 04:59 every 6 [place] mL oral 00 :00 (six) Medical solution hours as Branch needed for Cough for up to 7 days. Indication s: acute pain Clonazepam Yes TAKE Jodie 0.5 MG oral 8-22 ONE-HALF Seyb old Tablet 00:00: (05/09) TABLET(S) Externa BY MOUTH l TWICE A DAY NEEDED. Zolpidem Yes 12.5mg Take 12.5 Ke lsey Tartrate 8-22 mg by Seybold 12.5 MG 00:00: mouth at - oral Tab CR 00 bedtime as Ex terna needed l Clonazepam Yes TAKE Jodie 0.5 MG oral 8-22 ONE-HALF Seyb old Tablet 00:00: (05/09) - TABLET(S) Externa BY MOUTH l TWICE A DAY NEEDED. Zolpidem Yes 12.5mg Take 12.5 Ke lsey Tartrate 8-22 mg by Seybold 12.5 MG 00:00: mouth at - oral Tab CR 00 bedtime as Ex terna needed l Clonazepam 2-0 Yes TAKE Jodie 0.5 MG oral 8-22 ONE-HALF Seyb old Tablet 00:00: (2) - 00 TABLET(S) Externa BY MOUTH l TWICE A DAY NEEDED. Zolpidem 2-0 Yes 12.5mg Take 12.5 Ke lsey Tartrate 8-22 mg by Seybold 12.5 MG 00:00: mouth at - oral Tab CR 00 bedtime as Ex terna needed l Clonazepam 2-0 Yes TAKE Jodie 0.5 MG oral 8-22 ONE-HALF Seyb old Tablet 00:00: (05/09) - TABLET(S) Externa BY MOUTH l TWICE A DAY NEEDED. Zolpidem 2-0 Yes 12.5mg Take 1 Kelse y Tartrate 8-22 tablet Seybold 12.5 MG 00:00: (12.5 mg - oral Tab CR 00 total) by Ext darien mouth at l bedtime as needed Clonazepam 2021-0 Yes TAKE Jodie 0.5 MG oral 8-22 ONE-HALF Seyb old Tablet 00:00: (05/09) TABLET(S) Externa BY MOUTH l TWICE A DAY NEEDED. Zolpidem 2-0 Yes 12.5mg Take 1 Kelse y Tartrate 8-22 tablet Seybold 12.5 MG 00:00: (12.5 mg - oral Tab CR 00 total) by Ext darien mouth at l bedtime as needed Clonazepam 2-0 Yes TAKE Jodie 0.5 MG oral 8-22 ONE-HALF Seyb old Tablet 00:00: (05/09) - 00 TABLET(S) Externa BY MOUTH l TWICE A DAY NEEDED. Zolpidem 2-0 Yes 12.5mg Take 1 Kelse y Tartrate 8-22 tablet Seybold 12.5 MG 00:00: (12.5 mg - oral Tab CR 00 total) by Ext darien mouth at l bedtime as needed Celecoxib 2022-0 2022- No [id number] 200mg Take 1 Jodie (CeleBREX) 8 11-15 capsule Seybo ld 200 MG oral 00:00: 00:00 (200 mg - Capsule 00 :00 total) by Externa mouth 2 l times daily Phentermine Yes [id number] 37.5mg Take 1 Jodie HCl 37.5 MG [...] l ON AN EMPTY STOMACH. Phentermine Yes [id number] 37.5mg Take 1 Jodie HCl 37.5 MG 5-12 tablet Seybol d oral Tablet 00:00: (37.5 mg 00 total) by mouth every morning (before breakfast) Pt to start with 1/4 tab daily Phentermine 2021- No [id number] 37.5mg Take 1 Jodie HCl 37.5 MG 5-12 06-07 tablet Seybo ld oral Tablet 00:00: 00:00 (37.5 mg 00 :00 total) by mouth every morning (before breakfast) Pt to start with 1/4 tab daily Phentermine 2021- No [id number] 37.5mg Take 1 Jodie HCl 37.5 MG 5-12 05-12 capsule Seyb old oral 00:00: 00:00 (37.5 mg Capsule 00 :00 total) by mouth every morning Cholecalcif 2021- No 1{tbl} 1 tablet Jodie george 25 MCG 5-10 05-10 every 24 Sey bold (1000 UT) 09:14: 00:00 hours oral Tablet 17 :00 hydrOXYzine 0 Yes [id number] 10mg [id number] Take 1 Jodie HCl 10 MG 5-10 [id number] tablet (10 Seybold oral Tablet 00:00: 3D mg total) 00 by mouth 3 times daily as needed for itching or anxiety methylPREDN 2-0 Yes TAKE BY Celestino sey ISolone 4 5-10 MOUTH Seybold MG oral 00:00: ACCORDING Tablet 00 TO PACKAGE Therapy INSTRUCTIO Pack NS. hydrOXYzine 2021-0 Yes [id number] 10mg Q.[id number] Take 1 Jodie HCl 10 MG 5-10 [id number] tablet (10 Seybold oral Tablet 00:00: 3D mg total) - 00 by mouth 3 Externa times l daily as needed for itching or anxiety hydrOXYzine 2-0 Yes [id number] 10mg Q.[id number] Take 1 Jodie HCl 10 MG 5-10 [id number] tablet (10 Seybold oral Tablet 00:00: 3D mg total) - 00 by mouth 3 Externa times l daily as needed for itching or anxiety hydrOXYzine 2-0 Yes [id number] 10mg Q.[id number] Take 1 Jodie HCl 10 MG 5-10 [id number] tablet (10 Seybold oral Tablet 00:00: 3D mg total) - 00 by mouth 3 Externa times l daily as needed for itching or anxiety hydrOXYzine 2-0 Yes [id number] 10mg Q.[id number] Take 1 Jodie HCl 10 MG 5-10 [id number] tablet (10 Seybold oral Tablet 00:00: 3D mg total) - 00 by mouth 3 Externa times l daily as needed for itching or anxiety hydrOXYzine 2022-0 Yes [id number] 10mg Q.[id number] Take 1 Jodie HCl 10 MG 5-10 [id number] tablet (10 Seybold oral Tablet 00:00: 3D mg total) - 00 by mouth 3 Externa times l daily as needed for itching or anxiety hydrOXYzine 2022-0 Yes [id number] 10mg Q.[id number] Take 1 Jodie HCl 10 MG 5-10 [id number] tablet (10 Seybold oral Tablet 00:00: 3D mg total) - 00 by mouth 3 Externa times l daily as needed for itching or anxiety hydrOXYzine 2022-0 Yes [id number] 10mg Q.[id number] Take 1 Jodie HCl 10 MG 5-10 [id number] tablet (10 Seybold oral Tablet 00:00: 3D mg total) 00 by mouth 3 times daily as needed for itching or anxiety hydrOXYzine 0 Yes [id number] 10mg Q.[id number] Take 1 Jodie HCl 10 MG 5-10 [id number] tablet (10 Seybold oral Tablet 00:00: 3D mg total) 00 by mouth 3 times daily as needed for itching or anxiety methylPREDN 2021-0 Yes TAKE BY Celestino salgadoy ISolone 4 5-10 MOUTH Seybold MG oral 00:00: ACCORDING Tablet 00 TO PACKAGE Therapy INSTRUCTIO Pack NS. Zolpidem 2021-0 2021- No Jodie Tartrate 10 5-09 05-10 [...] l DAY (SECOND DOSE AT NOON). Propranolol 2021- Yes TAKE ONE Ke lsey HCl 10 MG 5-05 (1) Seybold oral Tablet 00:00: TABLET(S) - 00 BY MOUTH Externa TWICE A l DAY (SECOND DOSE AT NOON). Propranolol 0 Yes TAKE ONE Ke lsey HCl 10 MG 5-05 (1) Seybold oral Tablet 00:00: TABLET(S) - 00 BY MOUTH Externa TWICE A l DAY (SECOND DOSE AT NOON). Propranolol 2021-0 Yes TAKE ONE Ke lsey HCl 10 MG 5-05 (1) Seybold oral Tablet 00:00: TABLET(S) - 00 BY MOUTH Externa TWICE A l DAY (SECOND DOSE AT NOON). Propranolol 2021-0 Yes TAKE ONE Ke lsey HCl 10 [...] (SECOND DOSE AT NOON). Bilateral 2021- No [id number] 80mg Ke lsey Injection: 08-30 Seybold Methylpredn 17:00: 17:48 isolone 00 :00 Acetate (Depo-Medro l) 40 mg/ml, 80mg - Physician Administere d (J1030) Bilateral 2021- No [id number] 80mg 80 mg, Jodie Injection: 08-30 Physician Sey bold Methylpredn 17:00: 17:48 Administer isolone 00 :00 ed, ONCE, Acetate 1 dose, On (Depo-Medro Mon l) 40 08/30/21 at mg/ml, 80mg 1200 - Physician Administere d (J1030) Cholecalcif Yes 1{tbl} 1 tablet Jodie george 25 MCG -25 every 24 Seyb old (1000 UT) 11:41: hours oral Tablet 25 diphenhydrA 2021- No [id number] 25mg [facility] 08-30- ity of (BENADRYL) 02:45: 01:40 [place] 12.5 mg/5 00 :24 Medical mL solution Branch 25 mg diphenhydrA 2021- No [id number] 50mg [facility] 08-30-25 ity of (BENADRYL) 02:45: 01:41 [place] injection 00 :00 Medical 50 mg Branch diphenhydrA 2021- No [id number] 50mg 50 mg, Univers MINE 08-30- Intramuscu ity of (BENADRYL) 02:45: 01:41 lar, ONCE, [place] injection 00 :00 1 dose, On Medi maggy 50 mg Sun Branch 08/29/21 at 2145, Routine Permethrin 2022-0 Yes APPLY TO Celestino sey 5 % apply 4-25 AFFECTED Seybol d externally 00:00: AREAS Cream 00 (FROM NECK DOWN) ONCE NOW FOR 1 DOSE. REPEAT IN 1 WEEK. Permethrin 2022-0 Yes APPLY TO Celestino sey 5 % apply 4-25 AFFECTED Seybol d externally 00:00: AREAS Cream 00 (FROM NECK DOWN) ONCE NOW FOR 1 DOSE. REPEAT IN 1 WEEK. Permethrin 2022-0 Yes APPLY TO Celestino sey 5 % apply 4-25 AFFECTED Seybol d externally 00:00: AREAS Cream 00 (FROM NECK DOWN) ONCE NOW FOR 1 DOSE. REPEAT IN 1 WEEK. hydrOXYzine 2-0 Yes [id number] 25mg Take 1 [facility] 25 mg 4-24 tablet by ity of tablet 00:00: mouth [place] 00 every 6 Medical (six) Branch hours. hydrocortis 2-0 Yes [id number] Apply to Univers one 1 % 4-24 area(s) ity of cream 00:00: daily. [address] Branch hydrOXYzine 2-0 Yes [id number] 25mg Take 1 [facility] 25 mg 4-24 tablet by ity of tablet 00:00: mouth [place] 00 every 6 Medical (six) Branch hours. hydrocortis 2-0 Yes [id number] Apply to Univers one 1 % 4-24 area(s) ity of cream 00:00: daily. [address] Branch hydrOXYzine 2021-0 Yes [id number] 25mg Take 1 [facility] 25 mg 4-24 tablet by ity of tablet 00:00: mouth [place] [address] every 6 Medical (six) Branch hours. hydrocortis 2-0 Yes [id number] Apply to Univers one 1 % 4-24 area(s) ity of cream 00:00: daily. [address] hydrOXYzine 2021-0 Yes [id number] 25mg Take 1 [facility] 25 mg 4-24 tablet by ity of tablet 00:00: mouth [place] 00 every 6 Medical (six) Branch hours. hydrocortis 2022-0 Yes [id number] Apply to Univers one 1 % 4-24 area(s) ity of cream 00:00: daily. [address] Hydrocortis 2-0 Yes Apply Kelse y one 1 % 4-24 topically Seybold apply 00:00: daily - externally 00 Externa Cream l Hydrocortis 2021-0 Yes Apply Kelse y one 1 % 4-24 topically Seybold apply 00:00: daily externally 00 Cream hydrOXYzine 2021-0 Yes 25mg Take 25 mg Jodie HCl 25 MG 4-24 by mouth Seybol d oral Tablet 00:00: every 6 00 (six) hours Hydrocortis 2-0 Yes Apply Kelse y one [...] 00:00: daily externally 00 Cream Hydrocortis 2-0 2023- No Apply Amarilys ey one 1 % 4-24 05-08 topically Seybol d apply 00:00: 00:00 daily - externally 00 :00 Externa Cream l hydrOXYzine 2021-0 2022- No 25mg Take 25 mg Jodie HCl 25 MG 4-24 05-10 by mouth Seybo ld oral Tablet 00:00: 00:00 every 6 00 :00 (six) hours permethrin 2-0 2022- No [id number] Apply to Univers 5 % cream 4-24 04-25 area(s) ity of 00:00: 04:59 once now [place] 00 :00 for 1 Medical dose. Branch Apply to neck down, and reapply in 1 week. SERTraline 2-0 Yes 100mg Take 100 Un ariel 100 mg 4-23 mg by ity of tablet 00:00: mouth. [place] [address] Medical Branch SERTraline 2-0 Yes 100mg Take 100 Un ariel 100 mg 4-23 mg by ity of tablet 00:00: mouth. [address] Branch SERTraline 2-0 Yes 100mg Take 100 Un ariel 100 mg 4-23 mg by ity of tablet 00:00: mouth. [address] Sertraline 2021-0 Yes 100mg Take 100 Ke lsey HCl 100 MG 4-23 mg by Seybold oral Tablet 00:00: mouth 00 daily Sertraline 2-0 Yes 100mg Take 100 Ke [...] - 00 :00 daily Externa l Bupropion 2021-0 Yes 150mg Take 150 Celestino [...] TB24 00:00: mouth 00 every morning Bupropion 2-0 Yes 150mg Take 150 [place] sey HCL XL 150 4-06 mg by Seybold MG OR TB24 00:00: mouth 00 every morning Bupropion 2021-0 2022- No 150mg Take 150 Ke lsey HCL XL 150 4-06 11-15 mg by Seybold MG OR TB24 00:00: 00:00 mouth - 00 :00 every Externa morning l Enoxaparin 2021-0 Yes INJECT ONE K elsey (LOVENOX) 3-20 (1) Seybold 40 MG/0.4ML 00:00: SYRINGE subcutaneou 00 ONCE s Solution DAILY. Hyoscyamine 0 Yes as needed K elsey Sulfate 3-20 Seybold 0.125 MG 00:00: sublingual 00 SL Tab Enoxaparin 2021- No INJECT ONE Jodie (LOVENOX) 3-20 05-10 (1) Seybold 40 MG/0.4ML 00:00: 00:00 SYRINGE subcutaneou 00 :00 ONCE s Solution DAILY. Hyoscyamine 2021- No as needed Jodie Sulfate 3-20 05-10 Seybold 0.125 MG 00:00: 00:00 sublingual 00 :00 SL Tab ibuprofen 2021- No 800mg 800 mg, Uni vers (IBU) 07-05 Oral, ity of tablet 800 00:45: 23:33 ONCE, 1 [place] as mg 00 :00 dose, On [facility] [place] [facility] 07/04/21 at 1845, [facility] Zoloft 2020-05 Yes KELIN 2 tablets Memor [...] 2-17 HANKS l 03:46: Levothyroxi 2020-05 Yes EKLIN 1 tablet M emoria ne Sodium 2-17 [...] tablets Memor ia 2-17 HANKS l 03:46: BusPIRone 2020-05 Yes KELIN 1 tablet Mem oria HCl 2-17 HANKS l 03:46: Levothyroxi 2020-05 Yes KELIN 1 tablet M emoria ne Sodium 2-17 HANKS in the l 03:46: morning on an empty stomach Zoloft 2020-05 Yes KELIN 2 tablets Memor ia 2-17 HANKS l 03:46: Vitamin D 2020-05 Yes KELIN 2 tablets Me moria 2-17 HANKS l 03:46: Vitamin D 2020-05 [...] l 03:46: morning on an empty stomach Levothyroxi 2020-05 Yes KELIN 1 tablet M [...] Mem oria HCl 2-17 HANKS l 03:46: Zoloft 2020-05 Yes KELIN 2 tablets Memor ia 2-17 HANKS l 03:46: Levothyroxi 2020-05 Yes [...] oria HCl 2-17 HANKS l 03:46: Levothyroxi 2021-1 Yes KELIN 1 tablet M emoria ne Sodium 2-17 HANKS in the l 03:46: morning on an empty stomach Zoloft 2020-05 Yes KELIN 2 tablets Memor ia 2-17 HANKS l 03:46: Vitamin D 2020-05 Yes KELIN 2 tablets Me moria 2-17 HANKS l 03:46: BusPIRone 2020-05 Yes KELIN 1 tablet Mem oria HCl 2-17 HANKS l 03:46: Vitamin D 2020-05 Yes KELIN 2 tablets Me moria 2-17 HANKS l 03:46: Levothyroxi 2020-05 Yes KELIN 1 tablet M emoria ne Sodium 2-17 HANKS in the l 03:46: morning on an empty stomach Zoloft 2020-05 Yes KELIN 2 tablets Memor ia 2-17 HANKS l 03:46: Vitamin D 2020-05 Yes KELIN 2 tablets Me moria 2-17 HANKS l 03:46: BusPIRone 2020-05 Yes KELIN 1 tablet Mem oria HCl 2-17 HAKNS l 03:46: Levothyroxi 2020-05 Yes KELIN 1 tablet M emoria ne Sodium 2-17 HANKS in the l 03:46: morning on an empty stomach Zoloft 2020-05 Yes KELIN 2 tablets Memor ia 2-17 HANKS l 03:46: Vitamin D 2020-05 Yes KELIN 2 tablets Me moria 2-17 HANKS l 03:46: BusPIRone 2020-05 Yes KELIN 1 tablet Mem oria HCl 2-17 HANKS l 03:46: BusPIRone 2020-05 Yes [...] HANKS in the l 03:46: morning on 04 an empty stomach tiZANidine tiZANidine 2020-05- No 1{table tiZANidine HCl 4 MG HCl 4 MG 05-09 t_as_ne HCl 4 MG 00:00: 00:00 eded} 00 :00 Levothyroxi 2020-0 Yes [id number] 75ug Take 1 Jodie ne Sodium 1-13 tablet (75 Seyb old 75 MCG oral 00:00: mcg total) Tab 00 by mouth daily Levothyroxi 2020-0 Yes [id number] 75ug Take 1 Jodie ne Sodium 1-13 tablet (75 Seyb old 75 MCG oral 00:00: mcg total) - Tab 00 by mouth Externa daily l Levothyroxi 2020-0 Yes [id number] 75ug Take 1 Jodie ne Sodium 1-13 tablet (75 Seyb old 75 MCG oral 00:00: mcg total) - Tab 00 by mouth Externa daily l Levothyroxi 2020-0 Yes [id number] 75ug Take 1 Jodie ne Sodium 1-13 tablet (75 Seyb old 75 MCG oral 00:00: mcg total) - Tab 00 by mouth Externa daily l Levothyroxi 2020-0 Yes [id number] 75ug Take 1 Jodie ne Sodium 1-13 tablet (75 Seyb old 75 MCG oral 00:00: mcg total) - Tab 00 by mouth Externa daily l Levothyroxi 2020-0 Yes [id number] 75ug Take 1 Jodie ne Sodium 1-13 tablet (75 Seyb old 75 MCG oral 00:00: mcg total) Tab 00 by mouth daily Levothyroxi 2020-0 Yes [id number] 75ug Take 1 Jodie ne Sodium 1-13 tablet (75 Seyb old 75 MCG oral 00:00: mcg total) - Tab 00 by mouth Externa daily l Levothyroxi 2020-0 Yes [id number] 75ug Take 1 Jodie ne Sodium 1-13 tablet (75 Seyb old 75 MCG oral 00:00: mcg total) - Tab 00 by mouth Externa daily l Levothyroxi 2020-0 Yes [id number] 75ug Take 1 Jodie ne Sodium 1-13 tablet (75 Seyb old 75 MCG oral 00:00: mcg total) Tab 00 by mouth daily Levothyroxi 2020-0 Yes [id number] 75ug Take 1 Jodie ne Sodium 1-13 tablet (75 Seyb old 75 MCG oral 00:00: mcg total) Tab 00 by mouth daily ondansetron Yes [id number] 8mg Take 1 Univers (ZOFRAN) 8 9-22 tablet by ity of mg tablet 00:00: mouth [place] 00 every 8 Medical (eight) Branch hours as needed for Nausea and Vomiting (N/V). traMADol Yes [id number] 50mg Take 1 Un ariel (ULTRAM) 50 9-22 tablet by ity of mg tablet 00:00: mouth [place] 00 every 6 Medical (six) Branch hours as needed for Pain (scale 7-10). ondansetron Yes [id number] 8mg Take 1 Univers (ZOFRAN) 8 9-22 tablet by ity of mg tablet 00:00: mouth [place] 00 every 8 Medical (eight) Branch hours as needed for Nausea and Vomiting (N/V). traMADol Yes [id number] 50mg Take 1 Un ariel (ULTRAM) 50 9-22 tablet by ity of mg tablet 00:00: mouth [place] 00 every 6 Medical (six) Branch hours as needed for Pain (scale 7-10). ondansetron Yes [id number] 8mg Take 1 Univers (ZOFRAN) 8 9-22 tablet by ity of mg tablet 00:00: mouth [place] 00 every 8 Medical (eight) Branch hours as needed for Nausea and Vomiting (N/V). traMADol Yes [id number] 50mg Take 1 Un ariel (ULTRAM) 50 9-22 tablet by ity of mg tablet 00:00: mouth [place] 00 every 6 Medical (six) Branch hours as needed for Pain (scale 7-10). ondansetron Yes [id number] 8mg Take 1 Univers (ZOFRAN) 8 9-22 tablet by ity of mg tablet 00:00: mouth [place] 00 every 8 Medical (eight) Branch hours as needed for Nausea and Vomiting (N/V). traMADol 2018-0 Yes [id number] 50mg Take 1 Un ariel (ULTRAM) 50 9-22 tablet by ity of mg tablet 00:00: mouth [place] 00 every 6 Medical (six) Branch hours as needed for Pain (scale 7-10). ondansetron 2019-0 Yes [id number] 8mg Take 1 Univers (ZOFRAN) 8 9-22 tablet by ity of mg tablet 00:00: mouth [place] 00 every 8 Medical (eight) Branch hours as needed for Nausea and Vomiting (N/V). traMADol Yes [id number] 50mg Take 1 Un ariel (ULTRAM) 50 9-22 tablet by ity of mg tablet 00:00: mouth [place] 00 every 6 Medical (six) Branch hours as needed for Pain (scale 7-10). ondansetron Yes [id number] 8mg Take 1 Univers (ZOFRAN) 8 9-22 tablet by ity of mg tablet 00:00: mouth [place] 00 every 8 Medical (eight) Branch hours as needed for Nausea and Vomiting (N/V). traMADol Yes [id number] 50mg Take 1 Un ariel (ULTRAM) 50 9-22 tablet by ity of mg tablet 00:00: mouth [place] 00 every 6 Medical (six) Branch hours as needed for Pain (scale 7-10). ondansetron Yes [id number] 8mg Take 1 Univers (ZOFRAN) 8 9-22 tablet by ity of mg tablet 00:00: mouth [place] 00 every 8 Medical (eight) Branch hours as needed for Nausea and Vomiting (N/V). traMADol 0 Yes [id number] 50mg Take 1 Un ariel (ULTRAM) 50 9-22 tablet by ity of mg tablet 00:00: mouth [place] 00 every 6 Medical (six) Branch hours as needed for Pain (scale 7-10). ondansetron 0 Yes [id number] 8mg Take 1 Univers (ZOFRAN) 8 9-22 tablet by ity of mg tablet 00:00: mouth [place] 00 every 8 Medical (eight) Branch hours as needed for Nausea and Vomiting (N/V). traMADol 20190 Yes [id number] 50mg Take 1 Un ariel (ULTRAM) 50 9-22 tablet by ity of mg tablet 00:00: mouth [place] 00 every 6 Medical (six) Branch hours as needed for Pain (scale 7-10). omeprazole Yes 20mg Take 1 Tab U nivers (PRILOSEC 1-31 by mouth ity of OTC) 20 mg 00:00: daily. [place] tablet 00 [facility] omeprazole 0 Yes 20mg Take 1 Tab U nivers (PRILOSEC 1-31 by mouth ity of OTC) 20 mg 00:00: daily. [place] tablet 00 [facility] omeprazole 0 Yes 20mg Take 1 Tab U nivers (PRILOSEC 1-31 by mouth ity of OTC) 20 mg 00:00: daily. [place] tablet 00 [facility] omeprazole Yes 20mg Take 1 Tab U nivers (PRILOSEC 1-31 by mouth ity of OTC) 20 mg 00:00: daily. [place] tablet 00 [facility] omeprazole Yes 20mg Take 1 Tab U nivers (PRILOSEC 1-31 by mouth ity of OTC) 20 mg 00:00: daily. [place] tablet [facility] omeprazole Yes 20mg Take 1 Tab U nivers (PRILOSEC 1-31 by mouth ity of OTC) 20 mg 00:00: daily. [place] tablet [facility] omeprazole Yes 20mg Take 1 Tab U nivers (PRILOSEC 1-31 by mouth ity of OTC) 20 mg 00:00: daily. [place] tablet 00 [facility] omeprazole Yes 20mg Take 1 Tab U nivers (PRILOSEC 1-31 by mouth ity of OTC) 20 mg 00:00: daily. [place] tablet 00 [facility] Omeprazole Yes 20mg Take 20 mg K elsey Magnesium 1-31 by mouth Seybol d 20 MG oral 00:00: Tablet 00 Delayed Response Omeprazole 0 2022- No 20mg Take 20 mg Jodie Magnesium [...] Adacel) 00:00:00 Tdap- (Boostrix, 2021-09-16 Completed Jodie whittbogriselda Adacel) 00:00:00 - External Tdap- (Boostrix, 2021-09-16 Completed Jodie whittbogriselda Adacel) 00:00:00 - External Tdap- (Boostrix, 2021-09-16 Completed Jodie whittbold Adacel) 00:00:00 - External Tdap- (Boostrix, 2021-09-16 Completed Jodie whittbogriselda Adacel) 00:00:00 - External Tdap- (Boostrix, 2021-09-16 Completed Jodie whittbogriselda Adacel) 00:00:00 - External Tdap- (Boostrix, 2021-09-16 Completed Jodie whittbogriselda Adacel) 00:00:00 - External Tdap- (Boostrix, 2021-09-16 Completed Jodie S eybold Adacel) 00:00:00 Flucelvax - Flucelvax - 2021-02-17 Completed [facility] - multidose vial multidose vial 14:50:00 [facility] Influenza Virus 2021-02-12 Completed Jodie Se ybold Vaccine, No Preserv, 00:00:00 - Ex ternal age 6 months and up Influenza, 2021-02-12 Completed Jodie Seybold Injectable, Mdck, 00:00:00 - Exter nal Quadrivalent With Preservatie Influenza Virus 2021-02-12 Completed Jodie Se ybold Vaccine, No Preserv, 00:00:00 - Ex ternal age 6 months and up Influenza, 2021-02-12 Completed Jodie Seybold Injectable, Mdck, 00:00:00 - Exter nal Quadrivalent With Preservatie Influenza Virus 2021-02-12 Completed Jodie Se ybold Vaccine, No Preserv, 00:00:00 - Ex ternal age 6 months and up Influenza, 2021-02-12 Completed Joide Seybold Injectable, Mdck, 00:00:00 Quadrivalent With Preservatie Influenza, 2021-02-12 Completed Jodie Seybold Injectable, Mdck, 00:00:00 Quadrivalent With Preservatie Influenza Quad-PF 2021-02-12 Completed [facility] 00:00:00 of Medicine Influenza Quad-PF 2021-02-12 Completed [facility] 00:00:00 of Medicine Influenza, 2021-02-12 Completed Jodie Seybold Injectable, Mdck, 00:00:00 Quadrivalent With Preservatie Influenza, 2021-02-12 Completed Jodie Seybold Injectable, Mdck, 00:00:00 - Exter nal Quadrivalent With Preservatie Influenza, 2021-02-12 Completed Jodie Seybold Injectable, Mdck, 00:00:00 - Exter nal Quadrivalent With Preservatie Influenza, 2021-02-12 Completed Jodie Seybold Injectable, Mdck, 00:00:00 - Exter nal Quadrivalent With Preservatie Influenza Virus 2021-02-12 Completed Jodie Se ybold Vaccine, No Preserv, 00:00:00 - Ex ternal age 6 months and up Influenza, 2021-02-12 Completed Jodie Seybold Injectable, Mdck, 00:00:00 - Exter nal Quadrivalent With Preservatie Influenza Virus 2015-12-28 Completed Jodie Se ybold [...] age 6 months and up Influenza Quad-PF 2015-12-28 Completed [facility] 00:00:00 of Medicine Influenza Quad-PF 2015-12-28 Completed [facility] 00:00:00 of Medicine Influenza Virus 2014-12-30 [...] months and up Influenza Quad-PF 2014-12-30 Completed [facility] 00:00:00 of Medicine Influenza Quad-PF 2014-12-30 Completed [facility] 00:00:00 of Medicine Influenza Virus 2014-02-15 Completed Jodie Se ybold [...] Split, up 00:00:00 to age 3 Influenza 2014-02-15 Completed [facility] Quadrivalent 3YRS+ 00:00:00 of Med icine Influenza 2014-02-15 Completed [facility] Quadrivalent 3YRS+ 00:00:00 of Med icine Td- Tetanus & 2011-10-13 Completed Jodie Seyb old Diphtheria Vaccine 00:00:00 (age 7+ years) Td- Tetanus & 2011-10-13 Completed Jodie Salgadoyb old Diphtheria Vaccine 00:00:00 - Exte rnal (age 7+ years) Td- Tetanus & 2011-10-13 Completed Jodie Salgadoyb old Diphtheria Vaccine 00:00:00 - Exte rnal (age 7+ years) Td- Tetanus & 2011-10-13 Completed Jodie Salgadoyb old Diphtheria Vaccine 00:00:00 - Exte rnal (age 7+ years) Td (adult) 2011-10-13 Completed Jodie Seybold 00:00:00 - External Td- Tetanus & 2011-10-13 Completed Jodie Perez old Diphtheria Vaccine 00:00:00 - Exte rnal (age 7+ years) Td (adult) 2011-10-13 Completed Jodie Seybold 00:00:00 - External Td- Tetanus & 2011-10-13 Completed Jodie Perez old Diphtheria Vaccine 00:00:00 - Exte rnal (age 7+ years) Td (adult) 2011-10-13 Completed Jodie Salgadoybold 00:00:00 - External Td- Tetanus & 2011-10-13 Completed Jodie Perez old Diphtheria Vaccine 00:00:00 - Exte rnal (age 7+ years) Td (adult) 2011-10-13 Completed Jodie Seybold 00:00:00 - External Td- Tetanus & 2011-10-13 Completed Jodie Perez old Diphtheria Vaccine 00:00:00 (age 7+ years) Td- Tetanus & 2011-10-13 Completed Jodie Perez old Diphtheria Vaccine 00:00:00 (age 7+ years) Td 2011-10-13 Completed [facility] 00:00:00 of Medicine Td 2011-10-13 Completed [facility] 00:00:00 of Medicine Vital Signs Vital Name Observation Time Observation Value Comments Source Systolic blood 2022-11-01 16:07:00 108 mm[Hg] Jodie Salgadoybold - pressure External Diastolic blood 2022-11-01 16:07:00 72 mm[Hg] Noble Matos - pressure External Heart rate 2022-11-01 16:07:00 91 /min Jodie hernandez - External Body temperature 2022-11-01 16:07:00 35.94 Prachi Amarilys ey Seybold - External Respiratory rate 2022-11-01 16:07:00 14 /min Amarilys ey Seybold - External Body height 2022-11-01 16:07:00 167.6 cm Jodie S eybold - External Body weight 2022-11-01 16:07:00 132.45 kg Jodie S eybold - External BMI 2022-11-01 16:07:00 47.13 kg/m2 Jodie Ferguson eybold - External Body height 2022-09-15 19:19:00 167.6 cm Jodie Ferguson eybold - External Body weight 2022-09-15 19:19:00 125.646 kg Jodie Ferguson eybold - External BMI 2022-09-15 19:19:00 44.71 kg/m2 Jodie Ferguson eybold - External Systolic blood 2022-09-14 06:53:00 150 mm[Hg] [facility] Diastolic blood 2022-09-14 06:53:00 91 mm[Hg] [facility] Heart rate 2022-09-14 06:53:00 66 /min [facility] Body temperature 2022-09-14 06:53:00 36 Prachi [facility] Res[facility] rate 2022-09-14 06:53:00 16 /min [facility] Oxygen saturation in 2022-09-14 06:53:00 100 /min [facility] Arterial blood by [facility] Pulse oximetry [place] Body height 2022-09-14 04:31:00 167.6 cm [facility] Body weight 2022-09-14 04:31:00 126.916 kg [facility] BMI 2022-09-14 04:31:00 45.16 kg/m2 [facility] Systolic blood 2022-09-12 14:43:00 98 mm[Hg] Jodie Seybold - pressure External Diastolic blood 2022-09-12 14:43:00 60 mm[Hg] Noble walter Seybold - pressure External Heart rate 2022-09-12 14:43:00 87 /min Jodie S eybold - External Body temperature 2022-09-12 14:43:00 36.06 Prachi Amarilys ey Seybold - External Respiratory rate 2022-09-12 14:43:00 15 /min Amarilys ey Seybold - External Body height 2022-09-12 14:43:00 167.6 cm Jodie Ferguson eybold - External Body weight 2022-09-12 14:43:00 127.007 kg Jodie Ferguson eybold - External BMI 2022-09-12 14:43:00 45.19 kg/m2 Jodie S eybold - External Systolic blood 2022-07-07 21:11:00 102 mm[Hg] Jodie Seybold - pressure External Diastolic blood 2022-07-07 21:11:00 64 mm[Hg] Noble y Seybold - pressure External Heart rate 2022-07-07 21:11:00 88 /min Jodie Ferguson eybold - External Body temperature 2022-07-07 21:11:00 36.56 Prachi Amarilys whitt Seybold - External Respiratory rate 2022-07-07 21:11:00 15 /min Amarilys whitt Seybold - External Body height 2022-07-07 21:11:00 167.6 cm Jodie Ferguson eybold - External Body weight 2022-07-07 21:11:00 127.461 kg Jodie Ferguson eybold - External BMI 2022-07-07 21:11:00 45.35 kg/m2 Jodie S eybold - External Systolic blood 2022-07-01 17:38:00 110 mm[Hg] [facility] Medicine Diastolic blood 2022-07-01 17:38:00 71 mm[Hg] [facility] Medicine Heart rate 2022-07-01 17:38:00 70 /min [facility] Body temperature 2022-07-01 17:38:00 36.39 Prachi [facility] Respiratory rate 2022-07-01 17:38:00 16 /min [facility] Body height 2022-07-01 17:38:[address] [facility] Body weight 2022-07-01 17:38:[address] [facility] BMI 2022-07-01 17:38:00 42.77 kg/m2 [facility] Oxygen saturation in 2022-07-01 17:38:00 16 /min [facility] Arterial blood by Medicine Pulse oximetry HEIGHT 2022-06-22 06:35:00 167.6 cm WEIGHT 2022-06-22 06:35:00 121.2 kg HEIGHT 2022-06-21 09:48:00 167.6 cm WEIGHT 2022-06-21 09:48:00 120.203 kg HEIGHT 2022-06-22 06:35:00 167.6 cm WEIGHT 2022-06-22 06:35:00 121.2 kg HEIGHT 2022-06-21 09:48:00 167.6 cm WEIGHT 2022-06-21 09:48:00 120.203 kg HEIGHT 2022-06-22 06:35:00 167.6 cm WEIGHT 2022-06-22 06:35:00 121.2 kg HEIGHT 2022-06-21 09:48:00 167.6 cm WEIGHT 2022-06-21 09:48:00 120.203 kg HEIGHT 2022-06-06 11:20:00 167.6 cm WEIGHT 2022-06-06 11:20:00 122.6 kg HEIGHT 2022-06-03 09:00:00 167.6 cm WEIGHT 2022-06-03 09:00:00 117.935 kg HEIGHT 2022-06-06 11:20:00 167.6 cm WEIGHT 2022-06-06 11:20:00 122.6 kg HEIGHT 2022-06-03 09:00:00 167.6 cm WEIGHT 2022-06-03 09:00:00 117.935 kg HEIGHT 2022-06-06 11:20:00 167.6 cm WEIGHT 2022-06-06 11:20:00 122.6 kg HEIGHT 2022-06-03 09:00:00 167.6 cm WEIGHT 2022-06-03 09:00:00 117.935 kg Systolic blood 2022-04-27 17:56:00 118 mm[Hg] [facility] pressure Medicine Diastolic blood 2022-04-27 17:56:00 83 mm[Hg] [facility] Medicine Heart rate 2022-04-27 17:56:00 76 /min [facility] Respiratory rate 2022-04-27 17:56:00 16 /min [facility] Body height 2022-04-27 17:56:[address] [facility] Body weight 2022-04-27 17:56:[address] [facility] BMI 2022-04-27 17:56:00 43.90 kg/m2 [facility] Oxygen saturation in 2022-04-27 17:56:00 100 /min [facility] blood by [facility] Pulse oximetry Systolic blood 2022-04-22 13:51:00 102 mm[Hg] Jodie Seybold - pressure External Diastolic blood 2022-04-22 13:51:00 68 mm[Hg] Kelse y Seybold - pressure External Heart rate 2022-04-22 13:51:00 79 /min Jodie S eybold - External Body temperature 2022-04-22 13:51:00 36.06 Prachi Amarilys ey Seybold - External Respiratory rate 2022-04-22 13:51:00 16 /min Amarilys ey Seybold - External Body height 2022-04-22 13:51:00 167.6 cm Jodie S eybold - External Body weight 2022-04-22 13:51:00 125.193 kg Jodie S eybold - External BMI 2022-04-22 13:51:00 44.55 kg/m2 Jodie S eybold - External Systolic blood 2022-03-22 14:31:00 98 mm[Hg] Jodie Seybold - pressure External Diastolic blood 2022-03-22 14:31:00 58 mm[Hg] Kelse y Seybold - pressure External Heart rate 2022-03-22 14:31:00 88 /min Jodie S eybold - External Body temperature 2022-03-22 14:31:00 36.06 Prachi Amarilys ey Seybold - External Respiratory rate 2022-03-22 14:31:00 16 /min Amarilys ey Seybold - External Body height 2022-03-22 14:31:00 167.6 cm Jodie S eybold - External Body weight 2022-03-22 14:31:00 127.007 kg Jodie S eybold - External BMI 2022-03-22 14:31:00 45.19 kg/m2 Jodie S eybold - External Systolic blood 2022-01-16 15:56:00 109 mm[Hg] [facility] of pressure [facility] Diastolic blood 2022-01-16 15:56:00 78 mm[Hg] [facility] Heart rate 2022-01-16 15:56:00 81 /min [facility] Body temperature 2022-01-16 15:56:00 36.56 Prachi Univ [facility] Respiratory rate 2022-01-16 15:56:00 18 /min [facility] Body height 2022-01-16 15:56:00 167.6 cm Universi ty [facility] Body weight 2022-01-16 15:56:00 126.009 kg Universi ty [facility] BMI 2022-01-16 15:56:00 44.84 kg/m2 Universi ty [facility] Oxygen saturation in 2022-01-16 15:56:00 98 /min University Arterial blood by [facility] Pulse oximetry Branch Systolic blood 2021-10-12 19:35:00 [...] BMI 2021-10-12 19:35:00 49.74 kg/m2 Jodie S eybold Oxygen saturation in 2021-10-12 19:35:00 99 /min Jodie Seybold Arterial blood by Pulse oximetry Systolic blood [...] Systolic blood 2021-09-14 14:00:00 131 mm[Hg] Jodie Seybold pressure Diastolic blood 2021-09-14 14:00:00 76 mm[Hg] Kelse y Seybold pressure Heart rate 2021-09-14 14:00:00 76 /min Jodie S eybold Body temperature 2021-09-14 14:00:00 36.22 Prachi Amarilys ey Seybold Respiratory rate 2021-09-14 14:00:00 15 /min Amarilys ey Seybold Body height 2021-09-14 14:00:00 167.6 cm Jodie S jose eduardobold Body weight 2021-09-14 14:00:00 145.605 kg Jodie Ferguson eybold BMI 2021-09-14 14:00:00 51.81 kg/m2 Jodie whittbold Oxygen saturation in 2021-09-14 14:00:00 99 /min Jodie Matos Arterial blood by Pulse oximetry Body weight 2021-08-30 16:36:00 145.605 kg Jodie Ferguson eybold BMI 2021-08-30 16:36:00 51.81 kg/m2 Jodie S eybold Systolic blood 2021-08-30 01:23:00 121 mm[Hg] [facility] Diastolic blood 2021-08-30 01:23:00 82 mm[Hg] [facility] Heart rate 2021-08-30 01:23:00 72 /min [facility] Body temperature 2021-08-30 01:23:00 36.56 Prachi [facility] [place] [facility] Respiratory rate 2021-08-30 01:23:00 17 /min [facility] [place] [facility] Body height 2021-08-30 01:23:00 167.6 cm [facility] [place] [facility] Body weight 2021-08-30 01:23:00 146.693 kg [facility] [place] [facility] BMI 2021-08-30 01:23:00 52.20 kg/m2 [facility] [place] [facility] Oxygen saturation in 2021-08-30 01:23:00 98 /min [facility] Arterial blood by [place] [facility] Pulse oximetry Branch Systolic blood 2021-08-19 23:35:00 129 mm[Hg] [facility] of pressure [place] [facility] Diastolic blood 2021-08-19 23:35:00 81 mm[Hg] Unive [facility]ity of pressure [place] [facility] Heart rate 2021-08-19 23:35:00 87 /min [facility] [place] [facility] Body temperature 2021-08-19 23:35:00 36.44 Prachi [facility] [place] [facility] Respiratory rate 2021-08-19 23:35:00 18 /min [facility] [place] [facility] Body height 2021-08-19 23:35:00 165.1 cm [facility] [place] [facility] Body weight 2021-08-19 23:35:00 147.419 kg [facility] [place] [facility] BMI 2021-08-19 23:35:00 54.08 kg/m2 [facility] [place] [facility] Oxygen saturation in 2021-08-19 23:35:00 98 /min [facility] Arterial blood by [facility] Pulse oximetry Branch Systolic blood 2021-07-04 23:18:23 154 mm[Hg] Univer [facility]ity of pressure [place] [facility] Diastolic blood 2021-07-04 23:18:23 84 mm[Hg] Unive [facility]ity of pressure [place] [facility] Heart rate 2021-07-04 23:18:23 70 /min [facility] [place] [facility] Respiratory rate 2021-07-04 23:18:23 20 /min [facility] [place] [facility] Oxygen saturation in 2021-07-04 23:18:23 98 /min [facility] Arterial blood by [facility] Pulse oximetry Branch Body temperature 2021-07-04 21:42:00 36.44 Prachi [facility] Body height 2021-07-04 21:42:00 160 cm [facility] Body weight 2021-07-04 21:42:00 160.12 kg [facility] BMI 2021-07-04 21:42:00 62.53 kg/m2 [facility] Systolic blood 2021-04-08 23:49:00 135 mm[Hg] [facility] Diastolic blood 2021-04-08 23:49:00 88 mm[Hg] [facility] Heart rate 2021-04-08 23:49:00 80 /min [facility] Body temperature 2021-04-08 23:49:00 36.61 Prachi [facility] Respiratory rate 2021-04-08 23:49:00 18 /min [facility] Body height 2021-04-08 23:49:00 165.1 cm [facility] Body weight 2021-04-08 23:49:00 158.714 kg [facility]i [facility] BMI 2021-04-08 23:49:00 58.23 kg/m2 [facility] Oxygen saturation in 2021-04-08 23:49:00 100 /min [facility] Arterial blood by [facility] Pulse oximetry Branch height 2021-03-09 14:40:00 64 [in_i] [facility] weight 2021-03-09 14:40:00 346.2 [lb_av] [facility] temperature 2021-03-09 14:40:00 97.1 [degF] [facility] bmi 2021-03-09 14:40:00 59.42 kg/m2 [facility] oximetry 2021-03-09 14:40:00 97 % [facility] respiratory rate 2021-03-09 14:40:00 17 /min Comm on [facility] blood pressure 2021-03-09 14:40:00 137 mm[Hg] [facility] blood pressure 2021-03-09 14:40:00 71 mm[Hg] [facility] - diastolic [facility] Systolic blood 2022-06-25 11:00:00 142 mm[Hg] [facility] Diastolic blood 2022-06-25 11:00:00 74 mm[Hg] [facility] Heart rate 2022-06-25 11:00:00 73 /min [facility] Body temperature 2022-06-25 11:00:00 36.56 Prachi [facility] Respiratory rate 2022-06-25 11:00:00 17 /min [facility] Oxygen saturation in 2022-06-25 11:00:00 100 /min [facility] Arterial blood by Medical Ce nter Pulse oximetry Body height 2022-06-22 06:35:00 167.6 cm [facility] Body weight 2022-06-22 06:35:00 121.2 kg [facility] BMI 2022-06-22 06:35:00 43.13 kg/m2 [facility] BMI 2022-06-21 09:48:00 42.77 kg/m2 [facility] Body height 2022-06-21 09:48:00 167.6 cm [facility] Body weight 2022-06-21 09:48:00 120.203 kg [facility] Systolic blood 2022-06-17 11:39:00 113 mm[Hg] [facility] Diastolic blood 2022-06-17 11:39:00 65 mm[Hg] [facility] Heart rate 2022-06-17 11:39:00 70 /min [facility] Body temperature 2022-06-17 11:39:00 36.28 Prachi [facility] Respiratory rate 2022-06-17 11:39:00 18 /min [facility] Oxygen saturation in 2022-06-17 11:39:00 100 /min [facility] Arterial blood by Medical Ce nter Pulse oximetry Systolic blood 2022-06-06 15:29:00 144 mm[Hg] [facility] Diastolic blood 2022-06-06 15:29:00 70 mm[Hg] [facility] Heart rate 2022-06-06 15:29:00 65 /min [facility] Body temperature 2022-06-06 15:29:00 36.22 Prachi [facility] Respiratory rate 2022-06-06 15:29:00 16 /min [facility] Oxygen saturation in 2022-06-06 15:29:00 98 /min [facility] Arterial blood by Medical Ce nter Pulse oximetry Body height 2022-06-06 11:20:00 167.6 cm [facility] Body weight 2022-06-06 11:20:00 122.6 kg [facility] BMI 2022-06-06 11:20:00 43.62 kg/m2 [facility] Diastolic (mm Hg) 2021-02-09 21:00:00 Mem orial [place] Systolic (mm Hg) 2021-02-09 21:00:00 Amadou rial [place] Weight 2021-02-09 21:00:00 [facility] Heart Rate 2021-02-09 21:00:00 [facility] Procedures Procedure Date / Time Performing Clinician Source Performed LIPASE 2022-09-14 05:12:00 Himanshu Freire [facility] TROPONIN I 2022-09-14 05:12:00 Himanshu Freire [facility] COMP. METABOLIC PANEL 2022-09-14 05:12:00 Himanshu Freire [facility] ([id number]) [facility] CBC WITH DIFF 2022-09-14 05:12:00 Himanshu Freire [facility] CONSENT/REFUSAL FOR 2022-09-14 04:20:49 Doctor Unassigned, No Un [facility] DIAGNOSIS AND TREATMENT Name Medical Branch POCT-GLUCOSE METER 2022-06-25 12:11:00 Norma [facility] POCT-GLUCOSE METER 2022-06-25 08:21:00 Norma [facility] EEG 12-26 HR CONTINUOUS 2022-06-24 07:45:[facility] Ce nter CBC W/PLT COUNT & AUTO 2022-06-24 04:11:[address] [facility] BASIC METABOLIC PANEL 2022-06-24 04:11:00 [place] [facility] MAGNESIUM 2022-06-24 04:11:00 [facility] PHOSPHORUS 2022-06-24 04:11:00 [facility] CBC W/PLT COUNT & AUTO 2022-06-24 04:11:[address] [facility] MR BRAIN WITH & WITHOUT IV 2022-06-23 12:22:00 Tanner Ortega [facility] CONTRAST [facility] EEG 12-26 HR CONTINUOUS 2022-06-23 11:11:46 Demi Craig [facility] MONITORING WITH VIDEO Medical Ce nter POCT-GLUCOSE METER 2022-06-23 05:30:00 Norma [facility] SARS-COV2/RT-PCR ([facility] & 2022-06-23 05:11:00 [facility] REF LABS) [facility] BASIC METABOLIC PANEL 2022-06-23 04:19:00 [facility] MAGNESIUM 2022-06-23 04:19:00 [facility] PHOSPHORUS 2022-06-23 04:19:00 [facility] CBC (HEMOGRAM ONLY) 2022-06-23 04:19:00 [facility] APTT 2022-06-23 04:19:00 [facility] TSH/FREE T4 IF INDICATED 2022-06-23 04:19:00 Elvi Knowles [facility] HEPATIC FUNCTION PANEL 2022-06-23 04:19:00 [facility] CALCIUM, IONIZED 2022-06-23 04:19:00 [facility] T4, FREE 2022-06-23 04:19:00 [facility], ARTERIAL 2022-06-23 00:11:00 [facility] POCT-GLUCOSE METER 2022-06-22 23:46:00 [facility] HEMOGLOBIN A1C 2022-06-22 20:46:00 [facility] BLOOD GAS, ARTERIAL 2022-06-22 20:46:00 [facility] LACTIC ACID, ARTERIAL 2022-06-22 20:46:[address] [facility] [address] BRAIN WITHOUT IV 2022-06-22 20:15:[address] [facility] BLOOD GAS, ARTERIAL 2022-06-22 19:21:00 [facility] CBC (HEMOGRAM ONLY) 2022-06-22 19:20:00 [facility] MAGNESIUM 2022-06-22 19:20:00 [facility] PHOSPHORUS 2022-06-22 19:20:00 [facility] COMPREHENSIVE METABOLIC 2022-06-22 19:20:00 [facility] PROTHROMBIN TIME/INR 2022-06-22 19:20:00 [facility] STAT-LAB IONIZED CALCIUM 2022-06-22 14:46:41 [facility] RRL CRITICAL LABS 2022-06-22 14:46:39 [place] (ABG,NA,K,H&H,GLUCOSE) Medical C enter BLOOD GAS, ARTERIAL 2022-06-22 14:46:39 [facility] SODIUM NA-STAT LAB 2022-06-22 14:46:39 [facility] POTASSIUM-STAT LAB 2022-06-22 14:46:39 [facility] GLUCOSE-STAT LAB 2022-06-22 14:46:39 [facility] HGB/HCT (H&H) - STAT LAB 2022-06-22 14:46:39 [facility] STAT-LAB IONIZED CALCIUM 2022-06-22 13:05:09 [facility] RRL CRITICAL LABS 2022-06-22 13:05:07 [facility] (ABG,NA,K,H&H,GLUCOSE) Medical C enter BLOOD GAS, ARTERIAL 2022-06-22 13:05:07 [facility] SODIUM NA-STAT LAB 2022-06-22 13:05:07 [facility] POTASSIUM-STAT LAB 2022-06-22 13:05:07 [facility] GLUCOSE-STAT LAB 2022-06-22 13:05:07 [facility] HGB/HCT (H&H) - STAT LAB 2022-06-22 13:05:07 [facility] STAT-LAB IONIZED CALCIUM 2022-06-22 11:22:08 [facility] RRL CRITICAL LABS 2022-06-22 11:22:02 [facility] (ABG,NA,K,H&H,GLUCOSE) Medical C enter BLOOD GAS, ARTERIAL 2022-06-22 11:22:02 [facility] SODIUM NA-STAT LAB 2022-06-22 11:22:02 [facility] POTASSIUM-STAT LAB 2022-06-22 11:22:02 [facility] GLUCOSE-STAT LAB 2022-06-22 11:22:02 [facility] HGB/HCT (H&H) - STAT LAB 2022-06-22 11:22:02 [facility] TISSUE EXAM 2022-06-22 10:58:[facility] 09:25:04 [facility] RRL CRITICAL LABS 2022-06-22 09:24:58 [place] (ABG,NA,K,H&H,GLUCOSE) Medical C enter BLOOD GAS, ARTERIAL 2022-06-22 09:24:58 Green, [facility] SODIUM NA-STAT LAB 2022-06-22 09:24:58 Green, [facility] POTASSIUM-STAT LAB 2022-06-22 09:24:58 Green, [facility] GLUCOSE-STAT LAB 2022-06-22 09:24:58 [facility] HGB/HCT (H&H) - STAT LAB 2022-06-22 09:24:58 [facility] CRANIECTOMY, 2022-06-22 08:15:00 Green, [facility] FOR Medical Cent er EXCISION OF MENINGIOMA US INTRAOPERATIVE 2022-06-22 08:15:00 [facility] NEUROPHYSIOLOGIC 2022-06-22 08:15:00 [facility], [facility] MONITORING, INTRAOPERATIVE [facility] CRANIECTOMY, 2022-06-22 08:10:00 [facility], [facility] FOR Medical Cent er EXCISION OF MENINGIOMA US INTRAOPERATIVE 2022-06-22 08:10:00 [facility] NEUROPHYSIOLOGIC 2022-06-22 08:10:00 [facility], [facility] MONITORING, INTRAOPERATIVE [facility] POCT , URINE 2022-06-22 06:23:00 Vanessa Fuller [facility] APTT 2022-06-20 11:25:00 [facility] PROTHROMBIN TIME/INR 2022-06-20 11:25:00 [facility] BASIC METABOLIC PANEL 2022-06-20 11:25:00 [facility] CBC W/PLT COUNT & AUTO 2022-06-20 11:25:00 [facility] CBC W/PLT COUNT & AUTO 2022-06-20 11:25:00 Khalif Green [facility] DIFFERENTIAL [facility] TYPE AND SCREEN, AUTOMATED 2022-06-20 11:23:00 Khalif Green [facility] ECG 12-LEAD 2022-06-17 11:41:33 Norma [facility] ECG 12-LEAD 2022-06-17 11:41:33 Unknown, [facility] ECG 12-LEAD 2022-06-17 11:41:33 Unknown, [facility] URINALYSIS W/ REFLEX URINE 2022-06-17 11:36:00 Khalif Green [facility] CULTURE [facility] XR CHEST 2 VIEWS 2022-06-17 11:27:00 Norma [facility] PROCEDURE, IN 2022-06-06 21:30:00 Virtual, Surgeon [facility] NON-OPERATING ROOM SETTING [facility] MR BRAIN WITH & WITHOUT IV 2022-06-06 14:26:00 [facility] CONTRAST [facility] POCT , URINE 2022-06-06 11:31:00 Gonsalo Rios [facility] POCT SARS-COV-2 ANTIGEN 2022-01-16 15:56:00 Jomar Acosta [facility] (BINAX NOW) Medical Branch [id number] 2021-07-22 00:00:00 [facility] [id number] 2021-07-22 00:00:00 [facility] CONSENT/REFUSAL FOR 2021-07-04 21:35:26 Doctor Unassigned, No Un [facility] DIAGNOSIS AND TREATMENT Name Medical Branch POCT GRP A STREP 2021-04-08 23:53:00 Marlo Valero [facility] (MOLECULAR) Medical Branch ASSIGNMENT OF BENEFITS 2021-04-08 23:42:30 Doctor Unassigned, No [facility] Name Medical Branch Plan of Care Planned Activity Planned Date Details Comments Source Future Scheduled 2031-09-17 DTAP/TDAP/TD VACCINES [facility] Test 00:00:00 (2 - Td or Tdap) [...] [facility]INES [facility] 00:00[facility]00 (3 - Td or Tdap) [code Medic al Center = DTAP/TDAP/TD VACCINES (3 - Td or Tdap)] Future Scheduled 2031-09-17 DTAP/TDAP/TD VACCINES [facility] Test 00:00:00 (3 - Td or Tdap) [code Medic al Center = DTAP/TDAP/TD VACCINES (3 - Td or Tdap)] Future Scheduled 2031-09-17 DTAP/TDAP/TD VACCINES [facility] Test 00:00:00 (2 - Td or Tdap) [code Medic al Center = DTAP/TDAP/TD VACCINES (2 - Td or Tdap)] Future Scheduled 2031-09-17 DTAP/TDAP/TD VACCINES [facility] Test 00:00:00 (3 - Td or Tdap) [code Medic al Center = DTAP/TDAP/TD VACCINES (3 - Td or Tdap)] Future Scheduled 2031-09-17 DTAP/TDAP/TD VACCINES [facility] Test 00:00:00 (3 - Td or Tdap) [code Medic al Center = DTAP/TDAP/TD VACCINES (3 - Td or Tdap)] Future Scheduled 2031-09-17 DTAP/TDAP/TD VACCINES [facility] Test 00:00:00 (3 - Td or Tdap) [code Medic al Center = DTAP/TDAP/TD VACCINES (3 - Td or Tdap)] Future Scheduled 2031-09-17 DTAP/TDAP/TD VACCINES [facility] Test 00:00:00 (2 - Td or Tdap) [code Medic al Center = DTAP/TDAP/TD VACCINES (2 - Td or Tdap)] Future Scheduled 2031-09-17 DTAP/TDAP/TD VACCINES [facility] 00:00:00 (3 - Td or Tdap) [code Medic al Center = DTAP/TDAP/TD VACCINES (3 - Td or Tdap)] Future Scheduled 2023-06-21 [...] Cessation Counseling and Screening (12+)] Future Scheduled 2023-01-[address] [facility] Test 00:00:00 (Season Ended) [code = Medic al Center INFLUENZA VACCINE (Season Ended)] Future Scheduled 2023-01-[address] [facility] Test 00:00:00 (Season Ended) [code = Medic al Center INFLUENZA VACCINE (Season Ended)] Future Scheduled 2023-01-[address] [facility] Test 00:00:00 (Season Ended) [code = Medic al Center INFLUENZA VACCINE (Season Ended)] Future Scheduled 2023-01-[address] [facility] Test 00:00:00 (Season Ended) [code = Medic al Center INFLUENZA VACCINE (Season Ended)] Future Scheduled 2023-01-[address] [facility] Test 00:00:00 (Season Ended) [code = Medic al Center Influenza Vaccine (Season Ended)] Future Scheduled 2023-01-[address] [facility] Test 00:00:00 (Season Ended) [code = Medic al Center Influenza Vaccine (Season Ended)] Future Scheduled 2022-07-01 Screening for malignant [facility] Test 13:14:36 neoplasm of colon of Medicin e (procedure) [code = 789291668] Future Scheduled 2022-07-01 COVID-19 Vaccine (#1) Ba [facility] Test 13:14:36 [code = COVID-19 of Medicine Vaccine (#1)] Future Scheduled 2022-07-01 Human immunodeficiency B [facility] Test 13:14:36 virus screening of Medicine (procedure) [code = 863684929] Future Scheduled 2022-07-01 Hepatitis C screening [facility] Test 13:14:36 (procedure) [code = of Medic ine 297924663] Future Scheduled 2022-07-01 Screening for malignant [facility] Test 13:14:36 neoplasm of cervix of Medici ne (procedure) [code = 299125477] Future Scheduled 2022-07-01 FLU VACCINE > 6 MONTHS B [facility] Test 13:14:36 [code = FLU VACCINE > 6 of M edicine MONTHS] Future Scheduled 2022-07-01 Screening for malignant [facility] Test 13:14:36 neoplasm of breast of Medici ne (procedure) [code = 852142665] Future Scheduled 2022-07-01 BMI Follow Up Plan [facility] Test 13:14:36 [code = BMI Follow Up of Med icine Plan] Future Scheduled 2022-07-01 TETANUS SHOT (ADULT) [facility] Test 13:14:36 [code = TETANUS SHOT of [...] colon of Medicin e (procedure) [code = 888226616] Future Scheduled 2022-04-27 Screening for malignant [facility] Test 17:32:36 neoplasm of breast of Medici ne (procedure) [code = 245241770] Future Scheduled 2022-04-27 COVID-19 Vaccine (#1) [facility] [employer] Test 17:32:36 [code = COVID-19 of Medicine Vaccine (#1)] Future Scheduled 2022-04-27 Hepatitis C screening [facility] [employer] Test 17:32:36 (procedure) [code = of Medic ine 048899855] Future Scheduled 2022-04-27 Human immunodeficiency [facility] Test 17:32:36 virus screening of Medicine (procedure) [code = 076712513] Future Scheduled 2022-04-27 Screening for malignant [employer] Test 17:32:36 neoplasm of cervix of Medici ne (procedure) [code = 383921377] Future Scheduled 2022-04-27 TETANUS SHOT (ADULT) [employer] [facility] [employer] Test 17:32:36 [code = TETANUS SHOT of Medi cine (ADULT)] Future Scheduled 2022-04-27 FLU VACCINE > 6 MONTHS [facility] [employer] Test 17:32:36 [code = FLU VACCINE > 6 of M edicine MONTHS] Future Scheduled 2022-04-27 BMI FOLLOW UP PLAN [facility] [employer] Test 17:32:36 [code = BMI FOLLOW UP of Med icine PLAN] Future Scheduled 2022-04-27 MRI BRAIN W WO CONTRAST 1 Occurrences [facility] Test 12:48:22 [code = 80532-7] starting of Medicine 04/27/2022 until 04/27/2023 Future Scheduled 2022 Lipid panel (procedure) [facility] Test 00:00:00 [code = 36671370] Medical Ce nter Future Scheduled 2022 Lipid panel (procedure) [facility] Test 00:00:00 [code = 49540316] Medical Ce nter Future Scheduled 2022 Lipid panel (procedure) [facility] Test 00:00:00 [code = 28943396] Medical Ce nter Future Scheduled 2022 Lipid panel (procedure) [facility] Test 00:00:00 [code = 15433460] Medical Ce nter Future Scheduled 2022 Lipid panel (procedure) [facility] Test 00:00:00 [code = 47076387] Medical Ce nter Future Scheduled 2022 Lipid panel (procedure) [facility] Test 00:00:00 [code = 73927202] Medical Ce nter Future Scheduled 2022 Lipid panel (procedure) [facility] Test 00:00:00 [code = 95755210] Medical Ce nter Future Scheduled 2022 Lipid panel (procedure) [facility] Test 00:00:00 [code = 64387244] Medical Ce nter Future Scheduled 2022 Lipid panel (procedure) [facility] Test 00:00:00 [code = 35473713] Medical Ce nter Future Scheduled 2022 Lipid panel (procedure) [facility] Test 00:00:00 [code = 16837842] Medical Ce nter Future Scheduled 2022 Lipid panel (procedure) [facility] Test 00:00:00 [code = 40115971] Medical Ce nter Future Scheduled 2022 Lipid panel (procedure) [facility] Test 00:00:00 [code = 82892656] Medical Ce nter Future Scheduled 2022-01-06 INFLUENZA [...] cervix Medical C enter (procedure) [code = 410403499] Future Scheduled 1998 Screening for malignant [facility] Test 00:00:00 neoplasm of cervix Medical C enter (procedure) [code = 464483204] Future Scheduled 1998 Screening for malignant [facility] Test 00:00:00 neoplasm of cervix Medical C enter (procedure) [code = 564364935] Future Scheduled 1998 Screening for malignant [facility] Test 00:00:00 neoplasm of cervix Medical C enter (procedure) [code = 473725479] Future Scheduled 1998 Screening for malignant [facility] Test 00:00:00 neoplasm of cervix Medical C enter (procedure) [code = 553944270] Future Scheduled 1998 Screening for malignant [facility] Test 00:00:00 neoplasm of cervix Medical C enter (procedure) [code = 755008548] Future Scheduled 1998 Screening for malignant [facility] Test 00:00:00 neoplasm of cervix Medical C enter (procedure) [code = 962849020] Future Scheduled 1998 Screening for malignant [facility] Test 00:00:00 neoplasm of cervix Medical C enter (procedure) [code = 717223520] Future Scheduled 1998 Screening for malignant [facility] Test 00:00:00 neoplasm of cervix Medical C enter (procedure) [code = 389957801] Future Scheduled 1998 Screening for malignant [facility] Test 00:00:00 neoplasm of cervix Medical C enter (procedure) [code = 430875643] Future Scheduled 1998 Screening for malignant [facility] Test 00:00:00 neoplasm of cervix Medical C enter (procedure) [code = 644729316] Future Scheduled 1998 Screening for malignant [facility] Test 00:00:00 neoplasm of cervix Medical C enter (procedure) [code = 536132331] Future Scheduled 1995 HEPATITIS C SCREENING CH [...] colon Medical Ce nter (procedure) [code = 891294419] Future Scheduled 1977 Screening for malignant [facility] Test 00:00:00 neoplasm of colon Medical Ce nter (procedure) [code = 383162736] Future Scheduled 1977 Screening for malignant [facility] Test 00:00:00 neoplasm of colon Medical Ce nter (procedure) [code = 071551927] Future Scheduled 1977 Screening for malignant [facility] Test 00:00:00 neoplasm of colon Medical Ce nter (procedure) [code = 839061729] Future Scheduled 1977 Sigmoidoscopy [code = [facility] S[facility]oscopy] Medical Cente r Future Scheduled 1977 CT Colonography (combo) [facility] Test 00:00:00 [code = CT Colonography Medi maggy Center (combo)] Future Scheduled 1977 Screening for malignant [facility] Test 00:00:00 neoplasm of colon Medical Ce nter (procedure) [code = 602345200] Future Scheduled 1977 Screening for malignant [facility] Test 00:00:00 neoplasm of colon Medical Ce nter (procedure) [code = 350443929] Future Scheduled 1977 Screening for malignant [facility] Test 00:00:00 neoplasm of colon Medical Ce nter (procedure) [code = 486954086] Future Scheduled 1977 Screening for malignant [facility] Test 00:00:00 neoplasm of colon Medical Ce nter (procedure) [code = 002487324] Future Scheduled 1977 Sigmoidoscopy [code = [facility] 00:00:[facility] S[facility]oidoscopy] Medical Cente r Future Scheduled 1977 CT Colonography (combo) [facility] Test 00:00:00 [code = CT Colonography Medi maggy Center (combo)] Future Scheduled 1977 Screening for malignant [facility] Test 00:00:00 neoplasm of colon Medical Ce nter (procedure) [code = 724522282] Future Scheduled 1977 Screening for malignant [facility] Test 00:00:00 neoplasm of colon Medical Ce nter (procedure) [code = 606516676] Future Scheduled 1977 Screening for malignant [facility] Test 00:00:00 neoplasm of colon Medical Ce nter (procedure) [code = 826482587] Future Scheduled 1977 Screening for malignant [facility] Test 00:00:00 neoplasm of colon Medical Ce nter (procedure) [code = 182781982] Future Scheduled 1977 Sigmoidoscopy [code = [facility] 00:00:[facility] S[facility]oscopy] Medical Cente r Future Scheduled 1977 CT Colonography (combo) [facility] Test 00:00:00 [code = CT Colonography Medi maggy Center (combo)] Future Scheduled 1977 Screening for malignant [facility] Test 00:00:00 neoplasm of colon Medical Ce nter (procedure) [code = 308881945] Future Scheduled 1977 Screening for malignant [facility] Test 00:00:00 neoplasm of colon Medical Ce nter (procedure) [code = 250621748] Future Scheduled 1977 Screening for malignant [facility] Test 00:00:00 neoplasm of colon Medical Ce nter (procedure) [code = 289709665] Future Scheduled 1977 CT Colonography (combo) [facility] Test 00:00:00 [code = CT Colonography Medi maggy Center (combo)] Future Scheduled 1977 Screening for malignant [facility] Test 00:00:00 neoplasm of colon Medical Ce nter (procedure) [code = 561188111] Future Scheduled 1977 Sigmoidoscopy [code = [facility] 00:[facility] S[facility]oscopy] Medical Cente r Future Scheduled 1977 Screening for malignant [facility] Test 00:00:00 neoplasm of colon Medical Ce nter (procedure) [code = 876458982] Future Scheduled 1977 Screening for malignant [facility] Test 00:00:00 neoplasm of colon Medical Ce nter (procedure) [code = 217664968] Future Scheduled 1977 Screening for malignant [facility] Test 00:00:00 neoplasm of colon Medical Ce nter (procedure) [code = 090103345] Future Scheduled 1977 CT Colonography (combo) [facility] Test 00:00:00 [code = CT Colonography [facility] (combo)] Future Scheduled 1977 Screening for malignant [facility] Test 00:00:00 neoplasm of colon Medical Ce nter (procedure) [code = 070241055] Future Scheduled 1977 Screening for malignant [facility] Test 00:00:00 neoplasm of colon Medical Ce nter (procedure) [code = 514442796] Future Scheduled 1977 Screening for malignant [facility] Test 00:00:00 neoplasm of colon Medical Ce nter (procedure) [code = 756079582] Future Scheduled 1977 Screening for malignant [facility] Test 00:00:00 neoplasm of colon Medical Ce nter (procedure) [code = 610854213] Future Scheduled 1977 Screening for malignant [facility] Test 00:00:00 neoplasm of colon Medical Ce nter (procedure) [code = 279712816] Future Scheduled 1977 Sigmoidoscopy [code = [facility] 00:[facility] S[facility]oscopy] Medical Cente r Future Scheduled 1977 Sigmoidoscopy [code = [facility] 00:00:[facility] Sigmoidoscopy] Medical Cente r Future Scheduled 1977 CT Colonography (combo) [facility] Test 00:00:00 [code = CT Colonography [facility] (combo)] Future Scheduled 1977 Screening for malignant [facility] Test 00:00:00 neoplasm of colon Medical Ce nter (procedure) [code = 179700445] Future Scheduled 1977 Screening for malignant [facility] Test 00:00:00 neoplasm of colon Medical Ce nter (procedure) [code = 090828700] Future Scheduled 1977 Screening for malignant [facility] Test 00:00:00 neoplasm of colon Medical Ce nter (procedure) [code = 315878920] Future Scheduled 1977 Screening for malignant [facility] Test 00:00:00 neoplasm of colon Medical Ce nter (procedure) [code = 199456955] Future Scheduled 1977 Sigmoidoscopy [code = [facility] 00:00:[facility] S[facility]oidoscopy] Medical Cente r Future Scheduled 1977 CT Colonography (combo) [facility] Test 00:00:00 [code = CT [facility]ography [facility] [facility] Future Scheduled 1977 Screening for malignant [facility] 00:00:00 neoplasm of colon Medical Ce nter (procedure) [code = 495217223] Future Scheduled 1977 Screening for malignant [facility] 00:00:00 neoplasm of colon Medical Ce nter (procedure) [code = 784950057] Future Scheduled 1977 Screening for malignant [facility] 00:00:00 neoplasm of colon Medical Ce nter (procedure) [code = 706060408] Future Scheduled 1977 Screening for malignant [facility] 00:00:00 neoplasm of colon Medical Ce nter (procedure) [code = 722426247] Future Scheduled 1977 Sigmoidoscopy [facility]code = [facility]] Medical Lucioe r Future Scheduled 1977 CT Colonography (combo) [facility] 00:00:00 [code = CT Colonography [facility] (combo)] Future Scheduled 1977 Screening for malignant [facility] 00:00:00 neoplasm of colon Medical Ce nter (procedure) [code = 228503163] Future Scheduled 1977 Screening for malignant [facility] 00:00:00 neoplasm of colon Medical Ce nter (procedure) [code = 744878486] Future Scheduled 1977 Screening for malignant [facility] 00:00:00 neoplasm of colon Medical Ce nter (procedure) [code = 792955974] Future Scheduled 1977 Screening for malignant [facility] 00:00:00 neoplasm of colon Medical Ce nter (procedure) [code = 357599328] Future Scheduled 1977 Sigmoidoscopy [facility]code = [facility]] Medical Cente r Future Scheduled 1977 CT Colonography (combo) [facility] 00:00:00 [code = CT Colonography [facility] ([facility])] Future Scheduled 1977 CT Colonography (combo) [facility] 00:00:00 [code = CT Colonography [facility] (combo)] Future Scheduled 1977 Screening for malignant [facility] 00:00:00 neoplasm of colon Medical Ce nter (procedure) [code = 155586667] Future Scheduled 1977 Screening for malignant [facility] 00:00:00 neoplasm of colon Medical Ce nter (procedure) [code = 700980814] Future Scheduled 1977 Screening for malignant [facility] 00:00:00 neoplasm of colon Medical Ce nter (procedure) [code = 270778225] Future Scheduled 1977 Screening for malignant [facility] 00:00:00 neoplasm of colon Medical Ce nter (procedure) [code = 295240864] Future Scheduled 1977 Screening for malignant [facility] 00:00:00 neoplasm of colon Medical Ce nter (procedure) [code = 450756789] Future Scheduled 1977 Sigmoidoscopy [facility]code = [facility]] Medical Cente r Future Scheduled 1977 Screening for malignant [facility] 00:00:00 neoplasm of colon Medical Ce nter (procedure) [code = 686725825] Future Scheduled 1977 Screening for malignant [facility] 00:00:00 neoplasm of colon Medical Ce nter (procedure) [code = 663343850] Future Scheduled 1977 Screening for malignant [facility] 00:00:00 neoplasm of colon Medical Ce nter (procedure) [code = 588755990] Future Scheduled 1977 Sigmoidoscopy [code = [facility]oscopy] Medical Cente r Future Scheduled 1977 CT Colonography (combo) [facility] 00:00:00 [code = CT Colonography [facility] (combo)] Future Scheduled 1977 Screening for malignant [facility] 00:00:00 neoplasm of colon Medical Ce nter (procedure) [code = 311305843] Future Scheduled 1977 Screening for malignant [facility] 00:00:00 neoplasm of colon Medical Ce nter (procedure) [code = 747402838] Future Scheduled 1977 Screening for malignant [facility] 00:00:00 neoplasm of colon Medical Ce nter (procedure) [code = 390364003] Future Scheduled 1977 Screening for malignant [facility] 00:00:00 neoplasm of colon Medical Ce nter (procedure) [code = 905809528] Future Scheduled 1977 Sigmoidoscopy [facility]code [facility]] Medical Cente r Encounters Start End Encounter Admission Attending Care Care Encounter Source Date/Time Date/Time Type Type Clinicians Facility Department ID 2022-11-01 Outpatient [id number] 8D7C 0993-6 Memoria 12:09:45 667D-43EB 7D-43EB-ADB 67D-43EB- A l -ADB2-16A 2-25N52A091 DB2-16A92B Mitch 06D507O2A D0E 675D0E 2022-11-01 Outpatient [id number]- 58DNEA4R-W4 57FB CD2E-F [facility] 11:50:10 M1Y4-4BSB D8-4AED-8C0 6L2-0BUE- 8 l -7J3F-LU0 B-JO09NZ89Z Q7F-RM71OV Mitch 1XY37A0C8 6B7 71C6B7 2022-10-19 Outpatient [id number]- GMC6J60C-3X BEE7 B41D-0 [facility] 07:53:25 7JR4-5P6Q C2-7T4P-RCT EC2-4F9E- A l -ADD5-A25 5-D4323Z419 DD5-V8002B Mitch [id number] 3175-05-11 Outpatient [id number]- [id number]-BP 7D99 74DC-F [facility] 14:04:17 ZQ98-54O6 06-13S1-G75 L92-44J2- A l -D44N-148 D-979398W46 39D-341309 Mitch 258V36S04 D06 A37D06 2022-09-13 Outpatient [id number]- 9GMP7TP6-D5 4DFB 2AF1-B [facility] 23:21:46 D615-052Z 20-465F-9BA 320-465F- 9 l -0AI8-Q1H 7-C8EWI85R3 BA7-A4BEA0 Mitch KW53R04W7 6A3 3B26A3 2022-09-12 Outpatient [id number]- Q70H29L4-H0 D57A 29F1-D [facility] 10:07:35 C564-3K09 95-0V63-065 495-4C54- 8 l -8870-55F 0-69FAHBR9G 870-55FBAA Mitch SCGU2NK8T F1C E5DF1C 2022-09-09 Outpatient [id number]- [id number] A770 D593-7 [facility]oria 08:45:22 7525-4C3A 25-2P7O-E11 525-4C3A- A l -Y04Z-18Y F-23D677724 05F-57Z317 Mitch [id number] 3E2 7933E2 2022-09-09 Outpatient BD4U3H0W- QO2Q2G3H-F1 CE6F 6E1F-D [facility]oria 08:40:46 H66U-994V 2D-470E-918 12D-470E- 9 l -918D-9A6 D-9Z8S89T90 18D-9A6D10 Mitch N69P38E7E D4C A82D4C 2022-09-07 Outpatient [id number]- 312D82OG-N7 497A 55EA-D [facility] 15:20:50 C66O-9290 5A-4632-B7C 75A-4632- B l -E5BU-916 D-388A51V57 7CD-543D87 Mitch E46H424L0 9F0 F349F0 2022-09-07 Outpatient [id number]- 480HPH54-4S 523E AA78-5 [facility] 15:20:32 5BFA-417F FA-417F-93E BFA-417F- 9 l -81K9-2VU 9-8IZL3S5I6 6H7-4GXR7Z Mitch K7K0B0T74 E82 3A3E82 2022-07-18 Outpatient [id number]- 387B6164-6Y 566E 1280-6 Memoria 11:33:15 6DDD-4742 DD-4742-B58 DDD-4742- B l -W79C-628 C-45768U905 58C-72921L Mitch 87S195A4R D1B 340D1B 2022-07-07 Outpatient [id number]- 7C3511M6-PS 8A78 63E9-F [facility] 14:57:10 ZI53-2O63 73-9F82-07Q A80-9P13- 9 l -60O8-D30 1-B1351427Z 5J2-J36741 Mitch [id number] 690 23O330 2022-07-06 Outpatient [id number]- 67725HEX-15 2644 2EAD-2 Memoria 16:56:49 2368-40E5 68-21S8-4TI 368-40E5- 8 l -1FP7-S80 3-S870T0059 BF3-F040A3 Mitch [id number] 1E1 7311E1 2022-07-01 Outpatient [id number]- 6X52NUS0-65 4A74 EBE1-6 Memoria 11:21:02 6421-40EE 21-40EE-9BC 421-40EE- 9 l -9BCF-EC5 F-FC0962993 BCF-DD0929 Mitch [id number] C81 383C81 2022-06-30 Outpatient [id number]- 2BQ83NEN-5J 0EE3 3FDC-4 Memoria 09:53:38 6E8J-45T9 5F-40W6-304 S3F-07X0- 9 l -970D-E73 D-P09971781 70D-W21529 Mitch [id number] 10C 11294H 2022-06-21 Outpatient [id number]- M57S7622-N2 C94A 0379-A [facility] 16:03:41 L829-90NE 66-42FA-BEE 966-42FA- B l -BEEC-2D4 C-7B5RK4A3X EEC-2D4AB8 Mitch PP1R0L1Y8 2A6 A5F2A6 2022-06-21 Outpatient [id number]- 4108G6L3-15 6070 D7E1-4 Memoria 09:59:33 49AB-4AB3 AB-0KG1-16Z 9AB-4AB3- 9 l -05U2-01V 4-56Z7Q56H7 5F7-05Q4L1 Mitch [id number] 171 1I5965 2022-06-17 Outpatient [id number]- [id number] A080 898E-6 Memoria 10:48:00 8D02-1Z0Z 96-8N3E-W52 V69-4P8V- A l -S56Q-9C3 E-7F377DFYR 90E-4U751R Mitch 49DFACCEB CEB FACCEB 2022-06-10 Outpatient [id number]- B9427A2H-V1 A298 8E1D-D [facility] 07:04:18 X99M-8R05 4C-4T99-H77 54C-4B42- A l -F156-495 4-8511Z5629 704-3327D1 Mitch 6S3905H54 F76 965F76 2022-06-07 Outpatient [id number]- [id number] B67C 4074-4 Memoria 20:01:45 436D-42CD 6D-42CD-A5E 36D-42CD- A l -M6K4-6N8 0-2C8186116 3G1-3M8705 Mitch [id number] 8541-01-31 Outpatient [id number]- C2578UCQ-38 D434 0ABA-9 Memoria 16:39:07 958E-46DE 8E-46DE-B81 58E-46DE- B l -R55F-R81 E-J5891125H 81E-R55665 Mitch 86877W870 839 48T913 2022-06-06 Outpatient [id number]- GYFBJ009-9F EDAA B091-6 [facility]oria 11:54:04 2A7R-14RN 3E-45BF-B07 Q9G-36VS- B l -W99H-243 C-917W98NW1 07C-649F20 Mitch J60WB70EG 8CF CE98CF 2022-05-06 Outpatient [id number]- 642F6982-70 916B 5441-5 Memoria 08:02:19 59EF-4E77 EF-9I28-689 9EF-4E77- 9 l -9815-204 5-141BET60C 815-204DCE Mitch NJT50N25L 56E 94F56E 2022-04-27 Outpatient [id number]- 7LR24B52-T3 9EB4 8B88-A Memoria 12:57:30 S2G8-2668 F0-4245-892 7E5-7977- 8 l -8922-50D 2-39OZ95306 922-50DC41 Mitch [id number] 2FC 8352FC 2022-04-27 Outpatient 0HHYJKC8- 1OZNQKN3-J1 9EAB BAA3-E Memoria 12:31:32 Z1Y8-8VU7 A6-6HX2-Q54 2I8-7GM4- B l -N77H-9N4 E-4M0T4F20G 89E-3D4A0A Mitch Q9M04ZU82 A30 00BA30 2022-04-27 Outpatient [id number]- PUR767N4-D9 BDA4 51C5-C [facility]oria 12:00:32 D13P-5223 6B-4445-A7E 36B-4445- A l -Q9FR-9H4 A-0W3EB15R8 7EA-6C6FB2 Mitch XT84J026C 91D 4H499N 2022-04-27 Outpatient [id number]- [id number] C7F6 9939-5 Memoria 09:37:27 46T0-54R3 F9-47F7-406 6U0-81G8- 9 l -9296-2CB 6-5IZRXN3TZ 296-2CBFEE Mitch PKD9KT377 098 2KM065 2022-04-27 Outpatient [id number]- 9261QBJ7-P7 4799 EFC8-D Memoria 07:55:25 D3Y8-55O7 E1-16B5-214 7K0-08W0- 8 l -8018-A5B 8-R2T0R8740 018-A5B4B6 Mitch [id number] 102838 3262-12-19 Outpatient [id number] 2284 3256-4 Memoria 09:21:59 4CED-40EF ED-40EF-A7B JOSE DE JESUS-40EF- A l -X8LD-YAV E-UCL742527 7BE-DWW337 Mitch [id number] [id number] 6793-12-19 Outpatient [id number]- [id number]-F5 1D47 4123-E Memoria 09:00:32 Y61G-22J6 0B-53P6-G0P 60B-47E7- B l -W4C2-9K8 5-1G56U34N4 0H4-9D72K0 Mitch 1D78P9C5K D3F 5D7D3F 2022-04-25 Outpatient [id number]- 9819GU05-74 6029 AC85-2 Memoria 08:41:00 2973-44FE 73-44FE-A72 973-44FE- A l -U005-X36 3-U90TG5455 723-C18DA9 Mitch [id number] 929 [id number] 1225-12-16 Outpatient [id number]- 8018LE7V-B0 7054 AC8D-F Memoria 07:50:59 I61O-3871 5E-4465-DEONDRE 85E-4465- A l -ABA3-2A0 3-8V810570O BA3-6Z8780 Mitch [id number] 433 91I186 2022-03-22 Outpatient [id number]- 72920R35-G0 8003 6D00-E Memoria 08:31:44 F62M-28FI 0D-46CE-8A9 20D-46CE- 8 l -0W49-B57 1-G67B03354 S37-K42P59 Mitch W6008522C 67A 18026W 2022-01-16 Outpatient [id number]- [id number]-GI 0C35 04FD-E Memoria 10:51:27 JM90-16N3 59-56B6-449 R53-05K4- 9 l -9322-CD6 2-CC388ZX31 322-WO994K Mitch 22AJ521P9 7B5 A647B5 2022-01-05 Outpatient [id number] 4991 1110-5 Memoria 08:00:46 53J3-49D0 C6-90E7-5ZL 6T4-86M6- 9 l -6AA1-5YU 7-9MD8BM04L BC7-4DF7AD Mitch 6YB07O87G 62C 01B62C 2021-06-02 Outpatient Reardon, [facility] [id number] Common 14:12:[address] [facility] 2021-06-02 Outpatient Reardon, [facility] [id number] Common 14:07:[address] [facility] 2023-01-16 2023-01-16 Outpatient JODIE WHALEN [id number] Jodie 08:00:00 08:00:00 MARQUES Perezol d 2022-11-22 2022-11-22 Outpatient JODIE HAMILTON [id number] Jodie 15:30:00 15:30:00 YFN Salgadoybol d 2022-11-01 2022-11-01 Outpatient JODIE DELUNA [id number] Jodie 11:00:00 11:00:00 BHAVIN Seybol d 2022-10-13 2022-10-13 Outpatient JODIE HAMILTON [id number] Jodie 00:00:00 00:00:00 YFN Seybol d 2022-10-06 2022-10-06 Outpatient JODIE HAMILTON [id number] Jodie 00:00:00 00:00:00 YFN Seybol d 2022-10-05 2022-10-05 Outpatient JODIE HAMILTON [id number] Jodie 00:00:00 00:00:00 YFN Seybol d 2022-09-27 2022-09-27 Outpatient JODIE HAMILTON [id number] Jodie 10:00:00 10:00:00 YFN Seybol d 2022-09-19 2022-09-19 Outpatient PREFARZAD JODIE FELICIANO [id number] Jodie 00:00:00 00:00:00 AMISH Seybol d 2022-09-16 2022-09-16 Outpatient JOY JODIE FELICIANO [id number] Jodie 00:00:00 00:00:00 YFN Seybol d 2022-09-15 2022-09-15 Outpatient KOBY JODIE FELICIANO [id number] Jodie 14:10:00 14:10:00 MARQUES Seybol d 2022-09-15 2022-09-15 Outpatient JOSE GPatsy JODIE FELICIANO [id number] Jodie 00:00:00 00:00:00 YFN Seybol humphrey 2022-09-13 2022-09-14 Emergency X HIMANSHU FREIRE [facility] ERT [id number] Univers 23:35:00 01:58:00 ity of [facility] 2022-09-13 2022-09-14 Emergency Himanshu Freire [facility] [id number] [id number] Univers 23:35:00 01:58:00 T KAYLEEN 350.1.13.10 i ty [facility] 4.2.7.2.686 [facility] [id number] [facility] [address] 2022-09-13 2022-09-13 Outpatient JOSE GPatsy JODIE FELICIANO [id number] Jodie 00:00:00 00:00:00 YFN Perezol humphrey 2022-09-13 2022-09-13 Orders Doctor OROZCO [id number] [id number] Univers 00:00:00 00:00:00 Only Unassigned, DYLON 350.1.13.10 ity [facility] 4.2.7.2.686 [facility] [id number] [facility] [address] 2022-09-12 2022-09-12 Outpatient JOY JODIE FELICIANO [id number] Jodie 09:30:00 09:30:00 YFN Seybol humphrey 2022-09-09 2022-09-09 Outpatient KHALIF GREEN [facility] [id number] [facility] 12:25:17 12:50:51 [facility] 2022-09-07 2022-09-07 Outpatient JOY JODIE FELICIANO [id number] Jodie 00:00:00 00:00:00 YFN Seybol d 2022-09-01 2022-09-01 Outpatient JOY JODIE FELICIANO [id number] Jodie 00:00:00 00:00:00 YFN Seybol d 2022-08-04 2022-08-04 Outpatient JOY JODIE FELICIANO [id number] Jodie 00:00:00 00:00:00 YFN Seybol d 2022-07-07 2022-07-07 Outpatient JOY JODIE FELICIANO [id number] Jodie 15:30:00 15:30:00 YFN Seybol d 2022-07-06 2022-07-06 Outpatient JODIE HAMILTON [id number] Jodie 00:00:00 00:00:00 YFN Seybol d 2022-07-04 2022-07-04 Outpatient JOY JODIE FELICIANO [id number] Jodie 14:00:00 14:00:00 YFN Seybol d 2022-07-04 2022-07-04 Outpatient JOY JODIE FELICIANO [id number] Jodie 00:00:00 00:00:00 YFN Seybol d 2022-07-01 2022-07-01 Office KHALIF GREEN [facility] [id number] [id number] [facility] 11:19:58 16:20:36 Visit AMBULATOR 350.1.13.21 College Y 0.2.7.2.686 [id number] [facility] 300 e 2022-06-22 2022-06-25 [facility] REID Khalif Green [facility] [id number] [id number] 05:49[facility]00 18:13:00 [facility] 2022-06-22 2022-06-25 Inpatient KHALIF GONZALES [facility] Surgery [id number] [facility] 05:49:00 18:13:00 2022-06-22 2022-06-25 [facility] Khalif Green [facility] [id number] 05:49:00 18:13:00 Encounter [facility] 2022-06-23 2022-06-23 Travel [facility] [id number] [facility] 00:[facility]00 00:00:00 [facility] 2022-06-23 2022-06-23 Travel [facility] [id number] [facility] 00:[facility] 00:00:00 [facility] 2022-06-22 2022-06-22 Anesthesia Javier Waldron [facility] [id number] [facility] 08:10:00 17:29:00 Event Jonny [facility] 2022-06-22 2022-06-22 Anesthesia Javier Waldron [facility] [id number] [facility] [facility] 08:10:00 17:29:00 Event Jonny [facility] 2022-06-22 2022-06-22 Surgery Green [facility] [id number] 08:15:00 15:45:00 [facility] 2022-06-22 2022-06-22 Surgery Norma [facility] [id number] 08:15:00 15:45:00 [facility] 2022-06-22 2022-06-22 Travel [facility] [id number] [facility] 00:[facility]00 00:00:00 [facility] 2022-06-22 2022-06-22 Travel [facility] [id number] [facility] 00:[facility] 00:00:00 [facility] 2022-06-21 2022-06-21 Outpatient NORMA KHALIF [facility] [id number] [facility] 09:59:13 23:59:00 2022-06-21 2022-06-21 [facility] Khalif Green [facility] [id number] [id number] 09:00:00 23:59:00 Encounter [facility] 2022-06-21 2022-06-21 [facility] Khalif Green [facility] [id number] 09:00:00 23:59:00 Encounter [facility] 2022-06-21 2022-06-21 Travel [facility] [id number] [facility] 00:00:00 00:00:00 [facility] 2022-06-21 2022-06-21 Travel [facility] [id number] [facility] 00:00:00 00:00:00 [facility] 2022-06-20 2022-06-[address] [id number] [facility] 09:03:57 23:59:00 2022-06-20 2022-06-20 [id number] 09:00:00 23:59:00 Encounter [facility] 2022-06-20 2022-06-20 [facility] Norma [facility] [id number] 09:00:00 23:59:00 Encounter [facility] 2022-06-20 2022-06-20 Outpatient REID [facility] SLE [id number] [facility] 09:50:15 09:50:15 2022-06-17 2022-06-17 [facility] [id number] 10:49:22 23:59:00 Encounter [facility] 2022-06-17 2022-06-17 [facility] Norma [facility] [id number] 10:49:22 23:59:00 Encounter [facility] 2022-06-17 2022-06-17 Outpatient KHALIF GONZALES [facility] SLE [id number] SLEH 10:49:21 23:59:00 2022-06-17 2022-06-17 [facility] Norma [facility] [id number] 10:48:47 10:48:47 Encounter [facility] 2022-06-17 2022-06-[address] [facility] [id number] [facility] 10:48:47 10:48:47 2022-06-17 2022-06-17 [facility] Norma [facility] [id number] 10:48:47 10:48:47 Encounter [facility] 2022-06-17 2022-06-17 Outpatient REID [facility] [id number] SLE 10:47:54 10:47:54 2022-06-17 2022-06-17 Orders Khalif Green [facility] [id number] 00:00:00 00:00:00 Only [facility] 2022-06-17 2022-06-17 Orders Norma Khalif [facility] [id number] 00:00:00 00:00:00 Only [facility] 2022-06-10 2022-06-10 Outpatient KHALIF GREEN [facility] [id number] [facility] 10:39:01 10:57:11 Mariama Medicjackie chung 2022-06-10 2022-06-10 Outpatient JODIE HAMILTON [id number] Jodie 00:00:00 00:00:00 YFN yin 2022-06-06 2022-06-06 [facility] [id number] 11:53:59 23:59:00 Encounter [facility] 2022-06-06 2022-06-06 Outpatient REID STEPHENS [facility] [id number] SLE 11:53:59 23:59:00 [facility] 2022-06-06 2022-06-06 [facility] [id number] 11:53:59 23:59:00 Encounter [facility] 2022-[facility]-06 2022-06-06 [facility] [id number] 10:53:00 16:04:00 Encounter [facility] 2022-06-06 2022-06-06 [facility] [id number] 10:53:00 16:04:00 Encounter [facility] 2022-06-06 2022-06-06 Outpatient REID RIOS [facility] Surgery [id number] SLE 10:53:00 16:04:00 GONSALO 2022-06-06 2022-06-06 Surgery Virtual, [facility] [id number] 13:30:00 15:30:00 Surgeon [facility] 2022-06-06 2022-06-06 Surgery Virtual, [facility] [id number] 13:30:00 15:30:00 Surgeon [facility] 2022-06-06 2022-06-06 Anesthesia Harmony An [facility] [id number] 12:52:00 15:01:00 Event [facility] 2022-06-06 2022-06-06 Anesthesia Harmony [facility] [id number] 12:52:00 15:01:00 Event [facility] 2022-06-06 2022-06-06 Travel [facility] [id number] [facility] 00:00:00 00:00:00 [facility] 2022-06-06 2022-06-06 Travel [facility] [id number] [facility] 00:00[facility]00 00:00:00 [facility] 2022-06-03 2022-06-03 Outpatient [facility] [id number] SLE 09:19:23 23:59:00 2022-06-03 2022-06-[address] [facility] [id number] [facility] 08:55:00 23:59:00 Encounter [facility] 2022-06-03 2022-06-[address] [facility] [id number] [facility] 08:55:00 23:59:00 Encounter [facility] 2022-06-03 2022-06-03 Travel [facility] [id number] [facility] 00:00:00 [facility] 2022-06-03 2022-06-03 Travel [facility] [id number] [facility] 00:00:00 [facility] 2022-05-12 2022-05-12 Stephanie Stephens [facility] [id number] [facility] 00:00[facility]00 00:00:00 Orders Maria D Pulliam [facility] 2022-05-12 2022-05-12 Outside Angelo [facility] [id number] [facility] 00:00[facility]00 00:00:00 Orders Maria D Pulliam [facility] 2022-05-11 2022-05-11 Orders Angelo [facility] [id number] [facility] 00:00:00 00:00:00 Only Maria D Pulliam [facility] 2022-05-11 2022-05-11 Orders Angelo [facility] [id number] 00:00:00 00:00:00 Only Maria D Pulliam [facility] 2022-05-06 2022-05-06 Outpatient LAB90 JODIE FELICIANO [id number] Jodie 08:00:00 08:00:00 Seybol d 2022-05-05 2022-05-05 Outpatient JODIE ESCAMILLA [id number] Jodie 00:00:00 00:00:00 AMISH Seybol d 2022-04-29 2022-04-29 Outpatient JODIE MCNEIL [id number] Jodie 09:30:00 09:30:00 LUIS MIGUEL Seybol d 2022-04-29 2022-04-29 Outpatient KAILEE FELICIANO [id number] Jodie 00:00:00 00:00:00 MD MARTINA Seybol d 2022-04-27 2022-04-27 Office KHALIF GREEN [facility] [id number] [facility] 11:42:14 14:41:42 Visit AMBULATOR [id number] College Y [id number] [facility] 300 e 2022-04-27 2022-04-27 Outpatient LAB90 JODIE FELICIANO [id number] Jodie 09:35:00 09:35:00 Seybol d 2022-04-27 2022-04-27 Outpatient KAILEE FELICIANO [id number] Jodie 00:00:00 00:00:00 MARTINA MD Seybol d 2022-04-27 2022-04-27 Outpatient HUNDL, JODIE FELICIANO [id number] Jodie 00:00:00 00:00:00 YFN Seybol d 2022-04-25 2022-04-25 Outpatient HUNDL, JODIE FELICIANO [id number] Jodie 00:00:00 00:00:00 YFN Seybol d 2022-04-22 2022-04-22 Outpatient LAB90 JODIE FELICIANO [id number] Jodie 09:30:00 09:30:00 Seybol d 2022-04-22 2022-04-22 Outpatient HUNDL, JODIE FELICIANO [id number] Jodie 08:00:00 08:00:00 YFN Seybol d 2022-04-22 2022-04-22 Outpatient HUNDL, JODIE FELICIANO [id number] Jodie 00:00:00 00:00:00 YFN Seybol d 2022-04-21 2022-04-21 Outpatient HUNDL, JODIE FELICIANO [id number] Jodie 00:00:00 00:00:00 YFN Seybol d 2022-04-20 2022-04-20 Outpatient HUNDL, JODIE FELICIANO [id number] Jodie 00:00:00 00:00:00 YFN Seybol d 2022-04-20 2022-04-20 Outpatient HUNDL, JODIE FELICIANO [id number] Jodie 00:00:00 00:00:00 YFN Seybol d 2022-04-19 2022-04-19 Outpatient HUNDL, JODIE FELICIANO [id number] Jodie 15:00:00 15:00:00 YFN Seybol d 2022-04-19 2022-04-19 Outpatient HUNDL, JODIE FELICIANO [id number] Jodie 08:00:00 08:00:00 YFN Seybol d 2022-03-22 2022-03-22 Outpatient HUNDL, JODIE FELICIANO [id number] Jodie 08:30:00 08:30:00 YFN Seybol d 2022-03-21 2022-03-21 Outpatient HUNDL, JODIE FELICIANO [id number] Jodie 00:00:00 00:00:00 YFN Seybol d 2022-02-14 2022-02-14 Outpatient JODIE HAMILTON [id number] Jodie 00:00:00 00:00:00 YFN Seybol d 2022-01-27 2022-01-27 Outpatient PREFARZADJODIE [id number] Jodie 09:45:00 09:45:00 AMISH Seybol d 2022-01-26 2022-01-26 Outpatient LAB90 JODIE FELICIANO [id number] Jodie 09:50:00 09:50:00 Seybol d 2022-01-26 2022-01-26 Outpatient JODIE HAMILTON [id number] Jodie 00:00:00 00:00:00 YFN Seybol d 2022-01-25 2022-01-25 Outpatient JODIE HAMILTON [id number] Jodie 00:00:00 00:00:00 YFN Seybol d 2022 2022 Outpatient JODIE WHALEN [id number] Jodie 10:00:00 10:00:00 MARQUES Seybol d 2022-01-16 2022-01-16 Outpatient Claribel ACOSTA [facility] [id number] [facility] 11:00:00 11:36:36 JOMAR walter [facility] 2022-01-16 2022-01-16 Urgent Jomar Acosta [facility] [id number] [facility] 11:00:00 11:36:36 [facility] [id number] [facility] 4.2.7.2.686 [place] as RAMY?BLEA [id number] [address] MEDICAL OFFICE [facility] 2022-01-05 2022-01-05 Office Tee Hamilton 1.2.840.114 [id number] Jodie 08:00:00 08:30:00 Visit Yfn Ruvalcaba 350.1.13.13 Se ybold 1.2.7.2.686 [id number] 2021-12-08 2021-12-08 Office Tee Hamilton 1.2.840.114 [id number] Jodie 08:00:00 08:30:00 Visit Yfn Ruvalcaba 350.1.13.13 Se ybold 1.2.7.2.686 [id number] 2021-11-24 2021-11-24 Outpatient JODIE FELICIANO [id number] Jodie 09:10:00 09:10:00 Seybol d 2021-11-24 2021-11-24 Outpatient JODIE FELICIANO [id number] Jodie 09:05:00 09:05:00 Seybol d 2021-11-24 2021-11-24 Outpatient JODIE FELICIANO [id number] Jodie 09:00:00 09:00:00 Seybol d 2021-11-24 2021-11-24 Outpatient JODIE RAWLS [id number] Jodie 00:00:00 00:00:00 LISBET Seyb old 2021-11-15 2021-11-15 Outpatient JODIE HAMILTON [id number] Jodie 00:00:00 00:00:00 YFN Seybol d 2021-11-11 2021-11-11 Outpatient JODIE HAMILTNO [id number] Jodie 08:00:00 08:00:00 YFN Seybol d 2021-11-10 2021-11-10 Office Tee Hamilton 1.2.840.114 [id number] Jodie 09:30:00 10:00:00 Visit Yfn Ruvalcaba 350.1.13.13 Se ybold 1.2.7.2.686 [id number] 2021-11-09 2021-11-09 Outpatient JODIE FELICIANO [id number] Jodie 15:20:00 15:20:00 Seybol d 2021-10-21 2021-10-21 Outpatient UXP72-THR JODIE FELICIANO [id number] Jodie 09:25:00 09:25:00 Seybol d 2021-10-21 2021-10-21 Outpatient LABFelton FELICIANO [id number] Jodie 09:15:00 09:15:00 Seybol d 2021-10-21 2021-10-21 Office LUDWIN RAWLS 1.2.840.114 [id number] Jodie 08:30:00 08:30:00 Visit LISBET 350.1.13.13 Seybold 1.2.7.2.686 [id number] 2021-10-14 2021-10-14 Outpatient JOSE GJODIE Garner JODIE [id number] Jodie 08:00:00 08:00:00 YFN Seybol d 2021-10-12 2021-10-12 Office Tee Hamilton 1.2.840.114 [id number] Jodie 14:30:00 15:00:00 Visit Yfn Ruvalcaba 350.1.13.13 Se ybold 1.2.7.2.686 [id number] 2021-09-16 2021-09-16 Outpatient LAB90 JODIE FELICIANO [id number] Jodie 08:45:00 08:45:00 Seybol d 2021-09-16 2021-09-16 Office Tee Hamilton 1.2.840.114 [id number] Jodie 08:00:00 08:30:00 Visit Yfn Ruvalcaba 350.1.13.13 Se ybold 1.2.7.2.686 [id number] 2021-09-14 2021-09-14 Office Tee Hamilton 1.2.840.114 [id number] Jodie 09:00:00 09:30:00 Visit Yfn Ruvalcaba 350.1.13.13 Se ybold 1.2.7.2.686 [id number] 2021-08-30 2021-08-30 Office LUDWIN WHALEN 1.2.840.114 [id number] Jodie 11:20:00 11:20:00 Visit MARQUES 350.1.13.13 Se ybold 1.2.7.2.686 [id number] 2021-08-30 2021-08-30 Outpatient JODIE FELICIANO [id number] Jodie 11:15:00 11:15:00 Seybol d 2021-08-30 2021-08-30 Outpatient JODIE WHALEN [id number] Jodie 00:00:00 00:00:00 MARQUES Seybol d 2021-08-29 2021-08-29 Urgent JAMES Hawley 1.2.008.719 [id number] Univers 20:20:00 20:40:00 Care Sachi [employer] 350.1.13.[address] [facility] [address] [facility] 4.2.7.2.686 [place] as RAMY?BLEA [id number] [address] OFFICE [facility] 2021-08-29 2021-08-29 [facility] [id number] Univers 20:20:00 20:20:00 SACHI gray [facility] 2021-08-19 2021-08-19 [facility] ..840.114 [id number] Univers 18:40:00 19:00:00 Care Marlo [facility] 350.1.13.10 it y of [place] 4.2.7.2.686 [place] as RAMY?BLEA [id number] [address] OFFICE [facility] 2021-08-19 2021-08-19 [facility] [id number] Univers 18:40:00 18:40:00 ERNIEMAYA [facility] 2021-07-22 2021-07-24 Inpatient KURTIS Paulino SURG [id number] [facility] 14:35:00 15:26:00 Audencio 05 [facility] 2021-07-04 2021-07-04 [facility] [id number] Univers 15:47:00 17:38:00 [facility] 2021-07-04 2021-07-04 Emergency [facility] ..840.114 [id number] [id number] Univers 15:47:00 17:38:00 Layla BEYER 350.1.13.10 i ty of [place]7.2.[place] [id number] [address] 2021-07-04 2021-07-04 Outpatient R LIDIA [facility] [id number] Univers 15:00:00 15:00:00 SAMANTHA gray o f [facility] 2021-05-03 2021-05-03 Outpatient KURTIS Paulino DAYS [id number] [facility] 07:00:00 07:00:00 Audencio 37 [facility] 2021-04-22 2021-04-22 Outpatient CORRINA CORRINA ACOSTA [id number] eClinic 17:00:00 17:00:00 DAVE BROOKS 2021-04-08 2021-04-08 Outpatient Claribel ACOSTA [facility] [id number] Univers 17:40:00 18:27:54 JOMAR ity of [facility] 2021-04-08 2021-04-08 Urgent Marlo Valero [facility] 1.2.840.114 [id number] Univers 17:45:48 18:05:48 [facility] 350.1.13.10 ity of [place] 4.2.7.2.686 [place] as RAMY?BLEA [id number] [address] MEDICAL OFFICE BUILDING 2021-04-08 2021-04-08 Orders Doctor PAM 1.2.840.114 [id number] Univers 00:00:00 00:00:00 Only Unassigned, DYLON 350.1.13.10 ity of [place] [facility] 4.2.7.2.686 [place] as [id number] [address] 2021-03-09 2021-03-09 OFFICE STLMLC STLMLC [id number] Co mmon 00:00:00 00:00:00 VISIT [facility] it PT LEVEL 3 - [facility] 2021-02-09 2021-02-09 Outpatient CORRINA CORRINA ACOSTA [id number] eClinic 16:00:00 16:00:00 DAVE BROOKS Results Test Description Test Time Test Comments Results Result Comments Source TROPONIN I 2022-09-14 06:09:09 Test Item Value Reference Range Interpretation Comme nts TROPONIN I (test code = 5168021471) 0.001 ng/mL <=0.034 ANYN (test code = ANNY) Reference (Normal) Range (defined by the 99th percentile reference limit): <= 0.034 ng/mL Note: Cardiac troponin begins to rise 3-4 hours after the onset of ischemia. Repeat in 4-6 hours if the sample was drawn within 3-4 hours of the onset of the symptom and found normal. Diagnosis of myocardial injury is made with acute changes in cTn concentrations with at least one serial sample above the 99th percentile upper reference limit (URL), taken together with the patient's clinical presentation. Biotin has been reported to cause a negative bias, interpret results relative to patient's use of biotin. Lab Interpretation (test code = Normal 44507-0) [facility]. METABOLIC PANEL (69318)2022-09-14 05:57:51 Test Item Value Reference Range Interpretation Comments NA (test code = 139 mmol/L 135-145 4806920785) K (test code = 4.2 mmol/L 3.5-5.0 4607607182) CL (test code = 104 mmol/L 98-108 3513322545) CO2 TOTAL (test code = 28 mmol/L 23-31 9209437570) AGAP (test code = 7 2-16 9335827424) BUN (test code = 17 mg/dL 7-23 6383888950) GLUCOSE (test code = 101 mg/dL 70-110 4127992830) CREATININE (test code = 0.55 mg/dL 0.50-1.04 7383797177) TOTAL BILI (test code = 0.2 mg/dL 0.1-1.2 3660403687) CALCIUM (test code = 8.2 mg/dL 8.6-10.6 L 4881359634) T PROTEIN (test code = 6.1 g/dL 6.3-8.2 L 0350576570) ALBUMIN (test code = 3.5 g/dL 3.5-5.0 0233857055) ALK PHOS (test code = 133 U/L 34-122 H 8972112600) ALTv (test code = 87 U/L 5-35 H 1742-6) AST(SGOT) (test code = 62 U/L 13-40 H 1326513448) eGFR (test code = 119.5 mL/min/1.73m2 4848207798) ANNY (test code = ANNY) Association of Glomerular Filtration Rate (GFR) and Staging of Kidney Disease* + --+ --+ ------+| GFR (mL/min/1.73 m2) ?| With Kidney Damage ?| ?Without Kidney Damage+ --------+ --------+ +| ?>90 ?| ?Stage one ?| ? Normal ?+ ---+ ---+ -------+| ?60-89 ?| ?Stage two ?| ? Decreased GFR ? + --+ --+ ------+| ?30-59 ?| ?Stage three ?| ? Stage three ? + --+ --+ ------+| ?15-29 ?| ?Stage four ? | ? Stage four ?+ ---+ ---+ -------+| ?<15 (or dialysis) ? ?| ?Stage five ? | ? Stage five ?+ ---+ ---+ -------+ *Each stage assumes the associated GFR level has been in effect for at least three months. ?Stages 1 to 5, with or without kidney disease, indicate chronic kidney disease. Notes: Determination of stages one and two (with eGFR >59mL/min/1.73 m2) requires estimation of kidney damage for at least three months as defined by structural or functional abnormalities of the kidney, manifested by either:Pathological abnormalities or Markers of kidney damage (including abnormalities in the composition of the blood or urine or abnormalities in imaging tests). Lab Interpretation Abnormal (test code = 78462-9) [facility] Test Item Value Reference Range Interpretation Comments LIPASE (test code = 8438625638) 88 U/L 0-220 Lab Interpretation (test code = Normal 27881-0) [facility] WITH [id number] 05:42:47 Test Item Value Reference Range Interpretation Comments WBC (test code = 8.28 See_Comment [Automated 3126-2) message] The sy stem which generated this result transmitted reference range : 4.30 - 11.10 10*3/?L. The reference range was not used to interpret this result as normal/abnormal . RBC (test code = 3.80 See_Comment L [Automated 572-1) message] The sy stem which generated this result transmitted reference range : 3.93 - 5.25 10*6/?L. The reference range was not used to interpret this result as normal/abnormal . HGB (test code = 11.8 g/dL 11.6-15.0 718-7) HCT (test code = 35.9 % 35.7-45.2 4544-3) MCV (test code = 94.5 fL 80.6-95.5 787-2) MCH (test code = 31.1 pg 25.9-32.8 785-6) MCHC (test code = 32.9 g/dL 31.6-35.1 786-4) RDW-SD (test code = 41.4 fL 39.0-49.9 53740-8) RDW-CV (test code = 12.0 % 12.0-15.5 788-0) PLT (test code = 204 See_Comment [Automated 777-3) message] The sy stem which generated this result transmitted reference range : 166 - 358 10*3/ ?L. The reference r sena was not used to interpret this result as normal/abnormal . MPV (test code = 11.0 fL 9.5-12.9 87921-3) NRBC/100 WBC (test 0.0 See_Comment [Automat ed code = 7835733566) message] The system which generated this result transmitted reference range : 0.0 - 10.0 /100 WBCs. The refer ence range was not u sed to interpret th is result as normal/abnormal . NRBC x10^3 (test code See_Comment [Auto mated = 6600174806) message] The s ystem which generated this result transmitted reference range : 10*3/?L. The reference range was not used to interpret this result as normal/abnormal . GRAN MAT (NEUT) % 52.9 % (test code = 770-8) IMM GRAN % (test code 0.40 % = 3377421768) LYMPH % (test code = 36.8 % 736-9) MONO % (test code = 5.9 % 5905-5) EOS % (test code = 3.5 % 713-8) BASO % (test code = 0.5 % 706-2) GRAN MAT x10^3(ANC) 4.38 10*3/uL 1.88-7.09 (test code = 9691501969) IMM GRAN x10^3 (test 0.03 10*3/uL 0.00-0.06 code = 2663061275) LYMPH x10^3 (test code 3.05 10*3/uL 1.32-3.29 = 731-0) MONO x10^3 (test code 0.49 10*3/uL 0.33-0.92 = 742-7) EOS x10^3 (test code = 0.29 10*3/uL 0.03-0.39 711-2) BASO x10^3 (test code 0.04 10*3/uL 0.01-0.07 = 704-7) Lab Interpretation Abnormal (test code = 17388-7) [facility] [id number] 12:54:33 Test Item Value Reference Range Interpretation Comments Case Report (test code Surgical Pathology = 104) Report Case: [id number] Authorizing Provider: Khalif Green MD Collected: 06/22/2022 10:58 AM Ordering Location: [facility] Received: 06/22/2022 11:03 AM SERVICES Pathologist: Fatimah Marino MD Specimens: A) - Tumor, left parietal tumor B) - Tumor, left parietal tumor ADDENDUM (test code = m6qocTRkYTJvjLN5PhPvXO 3381) Xup6yfp6JjyBOilAXqIZyc yMMeegNahp20kJW7hF21JG 5mNFVbYbX6NTNipfY6Wnh4 YWJnACMnqQLtB661u3zpg4 mokgMdaNO3jUwqYJSblluy VkJ1KWquQEGmanczQCl4SF zmETMkrQX7SQOhjWFjL8Lg OJAjNH4ehjc6ZVP4TBjeWB XqXaF2STWyoKDoCZAlvLzs PYiis965YNE2IfTxKUOwcp SfkXgqqC8dJfXtUKYNQpFb GW8yFLtGCjGljOTozvRcp8 mryfRirsKpN2elAYBik7Id g8CwBqMuM9EbBW1qZ7NfzC Kfjf4nzYXltV== DIAGNOSIS (test code = d3sywEGyRRAsu8stYKOruX 3220) FuZzEwMzNcZnRuYmpcdWMx IHtccnRmMVxlcGljOTYwMl juihOaRTYvqIOcF4Fokqku FYuxPU8aSI9awHnkpQKaiL QiJORzTcXxq9cup450aJKu p0juVLZWtsbupTg4pLfbH7 9mm3W6IvbuY84nrALsVFG6 VEOcBIVudUWgYNTkWGT1CC UfnKVqA4ofIIKrRM8cnjtf IMunZEbfXKRupAC3QSRskR JpX5OpWFHmFMwqGYTvejd1 FjGdGl7faWJsyBtyUJprWX RhHHUkCQmzDKFdRmXzLC6e BNVpQMfwHHXwCFO3DDKbsc qgnUHjHAD8jV6aQCWxvO0i l2t7FMUolvy9PLTdCABBPH 5nggyea74mRVUIWtWaL0uX CSdeHROwRHY3HBAhOTFcf0 8kYZ99JCVuvzyeCQJnGs6u RCIuNKxwMGTeLAR2WPFkmt gjfOWnGJO1kV6nBYHulQDm i4lomlbksFQnIMLfCwLzDC 5ekcldK4qjgEKaFNCSArVF YV8hZ8OiASUkARfay1OlBF YnqS9crrRdfPItPTUaXyRj WDDfmqUpdw8bMP0qI1GogT c1nQ7zIXuyEN49fC8oTTdy ZVJmjKVwDD6kNLRSPVQcIP KFPXNrg8KeoF6aTKOdixHp bmdccGFyXHBhcmRccGFyfX nrdlSrAXykp2RtKCloWBWd ZB2iqCbbLABeDU7rPDArJ5 ddxL2tuir5InAbHIRtTdE5 LMAlveK7Guw5XWXiEAdhf6 ygj9HdJDLlPEm1bZtdEkDb BHMqy8hdvkFdYsCwLGHmNB GoMOQwnYZeG656a7hzi2qw dzGezPW7HOTxUEO3TSolmf ZkmeO6DYqkbARbXcO6IPgp pfKcVAavvrAkbpZiVdo5QB CeA326KJP6qOiey0twRFC1 AIYyAYCaDvZnYs1hmTNpR9 43RGPoIHPZLDPdhXd8QAJw kbKsunBbkHSNn537E236d4 ykEQHshjJxlYwPwbjok6bu Y066ERTcdUKkmjJjXpYdCJ PjjDNhfRE8AVWwPG8vkwxb YYfdVApqHYWsaxL5BWYfnG HxO0RsHUNtRF4rvwsyQAQ1 KYpdUAZuXON7TiBuJOMay7 Xedda7JaWllq0pay06BOJ8 z4RrbXwfRFF3UPG5EsNkBh 7oqSUeYAHlYY8gGmAneUOv UFCguk11gYatUHlkWQW6HF ClguJye8Dyv1vdHxAhzaXz C3pbA4XzSSXoVKEaHALpOs MfamXje3Odo8MidABgvKk2 j1miZZHwVMVexGwjv2azYQ D7UOKntUNaR1oidO3mZBHu IA6mzclby5nxLNwvZQiyKY UdsCZ4zkY1IYTajOFiK4Bt lG6rRPOnTHzqEBAgzfn8Kc JmZx3waRLyuJzoGTdsWqga YWdlXHBnbmNvbnRccGduZG VjXHBsYWluXHBsYWluXGYw XGZzMjRccWxcbGFuZzEwMz NcaGljaFxmMVxkYmNoXGYx HXfpG3buDhZuKuSaUxr1GU QddTBbQQObVqb3TADnvSFa SBZPlVeriM2hTTYifAxpnV 5loPY7DDBklqYhoILLvF7j GOZKcS8wIuB7OAMuWzw9JG A1HcBygDBtcZ4= COMMENT (test code = t5bgiJZdGRDkbRS3EfQqNC 3359) Tkp9tfr9HmeCPzqVSeFMzv oUJibmCake18cPE8dU92NS 2mCDAyOiM2POOodlX5Hve7 TTNzVPAxaXIcU886h3juo6 zdjaKioEJ6wUivKLNqzavi GrJ4JKwqFKYhytsqDYt2ZF lzBJHnsJZ8FLDfjJDvE3Np OKJbGY0znup2JTU6NQfhMN LcIlH4TLDzeRUgJNHqdFvb SDwkp255LXK9JiMlAGNmdm KqkKwytO4jEqTiXHCHCMU4 uZ6vqgQalC52ZVAtoEZhhK 6zd2XcHRmeRIngspIgfEmd b63tNALVdWSxXKPxszNsib RipLjlyVNjB1DhiDPnyYYw oQsaPNLmuDe5tVL1MJ2lTF A4bRCqU1GfTHPlFLU8xhTe RsIiGdPwxX5taCTdUC6hcC eqUCSxtvRsh7FicFIxa6Qg lYZtt5GzAZPqcCQwtCttib 2kAAXfS7cwa5WyVYM5elAh dhZpvJbbgJqqT3d3jHJmuL 1bkTMkmGV3wN8cHQPnKPYy UKWuDwKtSTTdVXJdNK1wsm 4kZ0OfnYr2iI9uCHawGR42 kR1aJREiocKyWNQjLH5xEU MnKaKyUJ0hpC6ksLoknQ0h aGVtaWNhbCBzdGFpbnMgKH BhbkMafv4zRGEjbuTiwV9a pmTWHJD8jKTmALOvaQWknG ZrZMQxTOKfxzDfm7dqGQPl uW37OfnoAJVcJMQFOKN7VE Hcs5s8nNEnNTTpciQrVDob Azo4EDMgf1whZjJxBPGyzw YqsF3yJHkil3GfKY62KEEk ZfwqdOVlkCYbDDJgcSC9tZ Q5fK3cGZslEFZaFMHiBZtt cylccGFyXHBhciBUaGUgb3 ZcpyCqoZVodT8aqD8rhsDw rxNreD4ofYPap03ceNO1ZL 45JQgfvSbgKJZjGJ2vegmh t41zGJCIJbOrX4lNFMlfIS PuKSVzDDUGsNFvf2ZysVW9 mPWhWXMunqWxGh1gcOZlWs JgJtXqVPXcxKZjgB8clI5h wXFtKqFskmJzRQ0hJKVcm6 3hBSYdESWuMZvdXZCsk7Ln rN7skQAxiNN8l8S8PIurHz mdgAXcjFSbuIHcnp09ODC7 MdKsX1nbknEcKm9eMDYdQU XkVZUkH80toMwfqaYcUpQa qA7wrI0lpZOtoZAknWVkPY DmE5aodPDhhT3akI1mPZ9n FYBEZJLzBJMQWPWjd0UtgR 6hr9pkhXKsWRGdJGNew5Ow WAPzi59lOjzlI8xnCcJcWU 7hHVQuwE2eaDDkAQtxHNQv GSKvPOPgCEZbGyPGpl0dDV YjgBH9RZleaWeteVTbNKKq kpgto4JiNAZgXOMiDDInII XbMYCnD3LeWMUiv5h7hJTd yhNtFBHaBS6nzfpuX1nljT VbCPDrrvslNEOnQhjwZ0ex WbXqzTBzEXSeSBY8XTEfVE M5rA2zNHIycTc9yGBkwLG5 IGZvciBhZGRpdGlvbmFsIG RmJ3gqbLTkeUQupAEtpVUt LlxwYXJccGFyZFxwYXJ9 CPT Code(s) (test code v6ovcPEoDIVzqLJ2XmBxBB = 3357) Rfw2xht7YclGIfmASfKQya kTJgsfEsrf09fIG1dD90CV 5fVJJiJqS9VNBqmaK5Lwi5 NSGtNFHdaTUfG355n1cax2 exlbPzbOQ1dTvzJSVmsman YdQ1RKigWWVosswxIGl4BX ujOLDjlPU8MIMlbLLqK6Jv DFOdPE5gsqd6EBZ9GHukFR CkCpF7SSOquSKqEQUsiVvb YQacc110HZD6XhMmILNasl JhiTeozV7xAoXrAGG7GJPg O1ymIAT1TEWxFAovIUnmBY EuOGx8LyTkTAR4JETvEmmj XHBhcn0= CLINICAL HISTORY (test m4jbkSMaBRWmwXW7UwGcQG code = 3356) Llu4odc8FksIGdvDOyRCax uDForwOmkg26gGT4rA39BB 4eOJHgNrL3WGIzikV2Vji7 ADDoAVZzqWFcX994v0hab4 nnwmEcpXC2aNygRKNhwnup BjZ1XMwwUHSbapqlNAa4EE iiCUMieLK7UIQorTZeS1Kb OKAdDM7flfu7PGY4BNknSX JrZsG5PQRhvXOlPONcyZkd BIvob622BOG2RiWiDENuwz VncVhleG2lBbErKOE7CE79 GVTaCI4jSFYkND7syZDaz1 s7cPBdGVE0TKJlgihoiPPq BKSlLClqLCC9jS8jIfufYD J9 GROSS DESCRIPTION (test z3hhtYNdXOMwaLQQSSDhE6 code = [id number]) xqlzUoYCMdjVHfU9Jtmiel LHbkNV2lJP3kcDtvaXMegD QfCQ0BAJVnHeVgLDOtxGOn tzDpPsZiYLQicNBybEU2GO ZzHC8lhxroUSowHEfkHHMp rzI3FJEulWWeW4PhYHKnUP 0zhxrgLHW8FXhzgA9gmsCC TopgEc9mlRDsvEtuIdKsIo NoYXJzZXQwXGZuaWwgQXJp YIe0dR2VZrawJKN7NEAMKl ngALEbVS3Ou0spXNEewGYe NMX3VXnkbFCcBNCuFOMxJI y8VLMcGVshlZSqVX8ahNpb GyzetViws8LnuQXvBDxqBK KlKQQbNRahBREbNB3RLeKa FNo7ToM9GuNuYMu1LXc9FA 0VOeZqRMOvUwHnKci4XUAl YEj3BUquTY8WLCW6MJYeTk A2AfJ7KISxZKMxNXNoCvMn XGYgQXJpYWwgXFxmbCBcXG 8llTyiqRTzqnXDXzAPsJ8f bu3utTLeGJ2DZXDrhPXGVC X5PV7pVDDDCvosiHCsWISc rFfjAVyfcG3zPO0FZFl8um NoXGZzMjAgVGhlIHNwZWNp uGYxFVTqP3SffeTqDYAwSC PuYUZhgvGuewVtFZ9fVWJl lQk3FXHbw90obEw8QRZpw7 0qhAEgOWxdHOD7lDBmAWNh XYVuXDKmZS59klFegaFdee 1hdGlvbiBhbmQgIkxFRlQg LCZFETAPHLtuYRAGT7PsMP UcGBTqTFTjGIvlRB16hpZk KyW1NQ8vcNljyeE4eEPcfU IqpAFzv1WafT8kOMBlYDW1 EKPaIvY9TXPaOyJvfPWzkh JzO7omDFzgtRMtSA4jKNVv uUSxNQPviaLxgLDlbDU7ZF CwTE09yFMwaCbnPn2zCTDi a5esxsOxHOV8wV3eYYibCU Vzx5XqrRJzDYNGGMWmURAj TNNlGG6pzH9ibhyvoPnxo7 NyHLcqBBD6Nm4vfWRqONQn bnRpcmVseSBpbiBjYXNzZX H6MGEWDi6qQRtclWgdnK4w WMSzB59yn6VFg5ObBTVkHR tip0dsrJxgj9QkqRGgZBca XMZzdVSuEUxumX6rImPou2 krfGz6UStvglT8MZGfdi4Q WhzfQpovmUznc6XqnCQiEG isMFYzUTXnGPwpXSByET4J KiJjWGg3KuB0DkYbBPf5HG p3KW0RSbHfCTTqTgHwXcx9 DYToLRg2SFstXS9QXHK6NR egMNq0RZL0ZEMeDOSbEGNq MiBcXGYgQXJpYWwgXFxmbC YzDM4eeCifsfW7XKOfWUog SHQwMYR5uZ2hUrqbRIChAC xfLLQvU04vx2KLz2RkIM1W ZAp2azUiefwamX2fWHKuvr AvIVfarGZeK8zyStElOSBR ZWNlaXZlZCBmcmVzaCBsYW JlbGVkIHdpdGggdGhlIHBh eKojqkYvT8P4myClAO0mWO MgHWUtQ1TgGLJlR54sWAMr yO3xFANuHH5vGGH7yV0jso GitQAvCLA8PRlvXx78NMtq QOVpmVYhX6keKYdfyNCic1 OeaAMlmPiihEXrX1RnfV21 iEk3CNpgg9onC6n0rZyfTq yygGF6kUBlpUQuKwLjO45o bnRzLiAgVGhlIHNwZWNpbW ClINikSWFjzozivPl3XIYv R6Kpe50zOWZ6dwHxIUWbLH bsc28tkLhdLXAgBLZlp3Az uPJxg7OviQAiTU0zBPGpnS Gyi0BkiEJ1xIAhHVYnD0Gq u71hOEKqBINspRTojQQ4GS OgcE2wJvKpCbQgAyasHMEh IPcykJDnHT4BQ1zppMKpZY PFutO6zlnqTJkFOOVDDJCj MXCXSLsyqA5GFYFbGSxwLY TtkHBYOZK7VE7rYXfdmTOy twaxYUMtK3WsR7FvduWqvT MyDGUmofMuj6pnVZX8SDOc gWSelJBnHoCuObdjBPE9NR lsk5vzZKN3YLDqiZVhbLFk KUhbNrOqNfpjXDOzK8FnA1 EzkzT6MZu6 INTRAOPERATIVE q7pltEFrCRYtoAE4AzKqBK CONSULTATION (test code Ocu5ktt2RwwDNknMSjQSub = [id number]) uXZwmnCwid23zWV6yG54ON 1yHUQrTxW9VBVbcyR3Jbn7 TWWwHVSaeEEcE810c8vvk0 caciWcfGQ8nEtfBPDjadps OvI2JAtxXOKelubaUUp7JN qfGZLtpTJ0ABAhpPQyS2Tw AUFpRF0cxhl3POO7JDevWE QdChS0BVWafQFbYLRwrMqd NWvgc266SLU9DdGlZYHyfl L9XOelVPHuP8OcX6SuJVsz TCP7YSOuFXEhOMPzWAOsSV KsHDokevC3q1qtKUXenTGi NKW6VEswfTGrHPFiGCHwPM zhEuOOWeFvByL2FNW4DEhf VvV1TZw8EDEPHsTsAiItXr K7JkV5XXDhUGy4KDm1LZnV NlP0Baw2VaW2WuOqBGUsUG LbYFy9TPFcBDbrjVWuMRGq AEVaIYroBDowK42ewYnirL 7uWkEsWJATWdXNjX6zny9h cGFyXGZzMjAgRlNBLiBCUk FJTiwgTEVGVCBQQVJJRVRB AHGLUS1OVwraUcvZXPDPRt wiYKQzaLRsAR3kHGRisU8c wZ1hJQyaYFTsrIVjRKGkeR 7qyRGaYYD1TKPbLpWGaBZ8 mjOUrd4xTvErJF8wGAFdWQ XiQnGuATAfOOT5YcIzcAzk MNDzA3OiJ0TadwW7x4dvoL mvp2RynXYmZV9mwILufD== MICROSCOPIC DESCRIPTION l8dhoDVaTHRueJE9TdLxEP (test code = 3371) Faf0lxl8YwpRNifVJlLLto yPSwldKwfx29xDO9sN23KY 3zQLBrDeJ1PJTgwgQ9Afx2 EKTiTLVibLWoY571z0fqh5 sdsrKsgPH3cMbtIGVawscj YeT8TRnyBSZqmtwxKBu9PH mqNPCltZY3JQSrmVWxX0Ot KIOnHM6uqeu1PVD2TJfjRE QgIsE0WVMnkGZhPUWsgTtb FPztn564KZX8OlQxSBEtpq UxuUtsvW5zKxDrPIHJUQYo e7ZkWMJfhJCefU== SPECIAL STUDIES (test x3xmqJAvKXGcd8tjWESskC code = 3376) FuZzEwMzNcZnRuYmpcdWMx ORdgznNwSKmdh4UiJ9UiUz AwMFxhbnNpXGRlZmxhbmcx RSNoSIK0nlWyVEObSPtzHN GyIYpvGy3skLFivDxqJwUb JLNfv4uxkmYXsoyjqUu9l8 yxSFGzIpD9nHCvGXgbT6up xpBipAFeL7CsvDPfwCl1d5 wsHtYpRiE5tUFnOXsnW6xz neQpiBUcURSzJCu9nW42AM ApgA9scZQfKVfetyXyHiG0 KBwlHOLqQxC3VDGcrVKlBY VkV2kiKOVoBFgzRTTjGBbg pKUfJLY6aWbai9D7oXAkjV IkxCdoZuGxWiOzJeZLt2Dz MIo9gFepM6TjSDWeRwL3kC QgUGFyYWdyYXBoIEZvbnQ7 jDybjaTwd42bzGUvVBKfYK JnFkCkfWsbAMSyUIIDl7Ek mDxgUVV4rNy2vOrhWkjfLT B7Dny2VR0lyd77ihf0hYqu YGOygforBgV0KBpbUKXofd vwHIc1WEjkAWQjiEL7XDDb zQLdK2PhJTHaMJ0tiwe9QE D1NYfuHFLtQqC4QLXweUEy GYEwlMdwSNbhz138UES4Wd QtKB2lN1Oti5V8jI5hvYWa KXUuhVGvEgOfPAQagg7nvU YiJJmof0NaDSG0opY5eZGj jZXjRWDvVX20Uilgw7ExZm sou5EmW55kuVR1XEdkx6mq AJ1oPcR2jnLsDYskq1qexN 8xXeC3URcnVT8dZV0yFUAm aF4pxezrVKApNhRamzjvXA QvxKfjaiBlWv1shZxsNMI2 BPbnL2osuP5iRyY3PNopK5 vibS0zPZg1PHtjpBC5PSLm qC3uYW1rfzqex7zbAYviBF ybMBXqyjY8rbS9IDUuoAAl K2RboI3bYBToCY7cenpfb1 faFWG4SJuoYFMwFCN1GwPh OVOla1Jqlrq7IyJux8JfpX QdPXxiQ27jn210FQCcfcCw R5sekZMvljhfzTKltbgoVN kqdiA5HRRrQNQzUJktNMNj XGZzMjJcbGFuZzEwMzNcaG ljaFxmMVxkYmNoXGYxXGxv J4teTzVaK4BqFAAcXdCnJA zfMBuhoCXcgREqdZM2cN4c VK2oREClmVUwD8SdNHCbsq NxgKUoMSZ5yBKwxDBtZA9x IOqlmKFlq9msz9VdT6ecjT ksrPV3ZF2iQTHqSPOpOItm i3QihG5zZlkniYQvdqtyRN xmczIyXGxhbmcxMDMzXGhp S8sbJcNuIDZncSxfBTdxt1 NoXGYxXGNmMlxmczIyXGx0 cmNoXHBhclxwYXJccGxhaW 4pXoMhZdFmTxmxLY8qFSHn O4zdxKIwOMUoVWHlO4bqRw RqhU1nzFhsSNvzQuDkJsTk TfISd010uf3qXUYpyCLcsz GBnTOnyO6hVBlaWExdJSwh vIViBMldn6luMCMzp9h3gO UoLEDmgjJfc2pfIVbazaRj XBEudUUixNUqSZJfv10mGY kwaMnvmIqjCIOoj0UtpDvg p2KgSwLfWGwte4CjH41gaA JvbCBzbGlkZXMgcnVuIGFs y13ew4gmRDPuCcY1cCZefM Q3eCNkqSYvm1CylKyxDOJg l4utQNWtbe1xomffcXOmu3 HxzQ6lmqceJPfomGEbofEb EIWpu6j6rXCiZKMsPBYaCK duqOy5AXSzh938ca9wnuG1 tGDaLNV5LAqkFODuLKVlvq UgZXZhbHVhdGVkXHBsYWlu XGYxXGZzMjJcbGFuZzEwMz NcaGljaFxmMVxkYmNoXGYx WUliS2pvCmFnI9WjXSMfVv GooRBgZ1sloIWoMQDmLEjo XGYxXGZzMjJcbGFuZzEwMz NcaGljaFxmMVxkYmNoXGYx BHsxI3mfIfUyW4PaEAVfXc IgIFxwbGFpblxmMVxmczIy KQglwmamOEPxEJimW4pmPh NlTBOfbOsuROaxg2ZpCFSs QKJeKyjlbqTcRZr9wiXwND BhclxwbGFpblxmMVxmczIy VWuccrsyQNGdXKglZ4nvIr KbSGTnvKiiHPgaa2EwATCi XGNmMlxmczIyIEltbXVub2 jtq4JgK6sdxYntvKM1CKMh H5wawJHbcYP2PYQ7dB5kRB hafmNxNVUqr4FcLOKmUXAx BwF9hI8zVCK7YxIPqYjfSG BsYWluXGYxXGZzMjJcbGFu ZzEwMzNcaGljaFxmMVxkYm FeQIEpYRdeH6rlCqEfM6Pi FIQmGcBmdXquYAmzDMd0Nu xwbGFpblxmMVxmczIyXGxh woheYIMcXXlbS3mqLvNhGD LvrOwoUOiwl3ZmSQKiWRVi MlxmczIyIHMgTWVkaWNhbC AXCE24ZCMmYBZgtNfedY9x lHTUOOLmcmF3b2U6JHanXZ NlUOw7VDxkumViJYEbeO0h RDOxER9qCEu4jyYaAYGvh5 XvZS6rNSYwrSSlFBB0OXYx u3QjL7Rrg2TpGZOwXVJgrl 1lveKgBqQHvJQdGXUuwk00 MZFqGG7cJ1cpWKZjUYXzgo VjfBExh9WpDBAsnEK4oBZb LS9RDqRNj70oECZpHRTKvi QmUVDmaWfflIK8sgY3wP0j LiBUaGUgRkRBIGhhcyBkZX Kvaz5peyZuYZBfPTFyy2Fi xDKqsUCylkBgJ0Ivg6EaES Vvpy26NQgavJVmra97TT4s J4Nig4ZuuI0qNAomGAOzv9 BteHNsqOMiORKww0AaK4gl enboOYoepDTlpU7xZUSiGX g0EOFrm2PmQRAih9XeFuUn dcBfRRDsGEEaPHTnsM55WZ U7aIyviRtaorHaEE9xKUQc ewKlRFRbOEAsfV0jCHnenr GvWYStxeP4c7A6JBidEDSv yiCiIgupOVI0tzAlyhM8fW OwQ3wwpwitDHsaBAPnk7Ax pO8gdEJPeJDyw7EbfICzzM SOxPGbZX9tsaGrBX7vCAS1 ODggKENMSUEtODgpIGFzIH M4LIdyWtdtPUV3hyDaULXu b6ZeBHhbW3myH97xnOzhpQ f0wKJnvZhawOCphDRpLJGj geM0l8R3VCPtm5WpkvzwEO BsYWluXGYyXGZzMjJcbGFu ZzEwMzNcaGljaFxmMlxkYm KhSAAxTXxwK0oyJzNfAoJw FdqqRTG2bG== Gross assessment was [facility] performed at ([facility], = 2777) Department of Pathology, [address] [place] [id number], Technical component was [facility] performed at ([facility], = 2778) Department of Pathology, [address] [place] [id number], Professional component [facility] was performed at ([facility], code = 2779) Department of Pathology, [address] [place] [address], [id number] 12:54:33 Test Item Value Reference Range Interpretation Comments Case Report (test code Surgical Pathology = 104) Report Case: [id number] Authorizing Provider: Khalif Green MD Collected: 06/22/2022 10:58 AM Ordering Location: [facility] Received: 06/22/2022 11:03 AM SERVICES Pathologist: Fatimah Marino MD Specimens: A) - Tumor, left parietal tumor B) - Tumor, left parietal tumor ADDENDUM (test code = [id number]) Sij5iqv2GwhNZybULeKRnx aMUiluYosp36lGO8mJ10KA 9mDSMmKvW8XBXwyuF4Nqn9 CHKlVJRliFGeF624n5xdx2 hbacCdcTC1yFsyFVFacdmg UkG0DIauCBLxupdwPYp9WA iwJJJtkDU7VOPzcHOkL3Bi VKBpZH4cfxx2XLV0LXxcPG NcGyB7BARtcGUfFIAkbCue XXqoh932PYK6TrQlKLFxdp TjaUjblO3tMuThCHMYIyAb EU1zHKvXKaCjxDUpqhQvp3 kbduYaitTrN6asRZSpn7Xp l3RwZuFsR7QhFE1aS1LjsZ Ggmn5vgOOsqY== DIAGNOSIS (test code = [id number] 3220) FuZzEwMzNcZnRuYmpcdWMx IHtccnRmMVxlcGljOTYwMl zxzbGnRVGfjAThB2Edejrg NRnvPV6iPL9wcHpkjFOkaD GoVAPeLxAvq9dlh206eFMh f0utRYOIrxqudGw3kUiuV7 2jp3I6JrryS74zpHErDIF3 DVGwCJHijTUfWCSuJAC8GX BczAJyN3yrNQMnAK6pnicd TQykNBacZJRayZL0UIGajB LrS8VzWOZkJUmsADZflno6 YoGgBy6mzMGgfMhcZHfnQN MlFUVgWConQYVgHwGjJI2q MEMsDJhrIRIeEAJ4QKJcpu nwlYAtBJV5uY0oPPQajS2c t3x2LQSxbkj1VEBqBOGVRL 5bnkdwy00dUUDEKzZrP9cH XBpiMKFjNZQ7EBBqTLRvm2 7qJJ70KRXqdqeoKNOkXk7g OLJmDHhyDKNoTCO7UHIxrx xyxRPzNKN6fO2hBVTbiWQq d0fcmcgaoWUwPIQcJyYuGL 6smfrbO0sjvZPnQTCXIoUL PQ6qV8DnTKJyUOand5ZnXN VakB0tryNtdNRjLZDkVmUq ITEtynJwmm2lKS8hW0UcoM l3yL6bLOqxVH30aQ1cEMmr VNVthMCjVL9xQUQDSOHqZO HDGQWie0LemZ4kTSZxcpRs bmdccGFyXHBhcmRccGFyfX nruwOtGJwxo4BqWGpxRAHl GD6dvRbgUEZuLP1nSYAnG7 hymI2ezsp6TfCxJNJcVrY8 IBSahaD6Ypo4MZOyRIiyu0 tgs1MwGBBhVQa5bLciMgGn XDNcz2zmmyVaEmUkZHFmRN OfFAXmsTYvD822f1cmg1ax syRdnZD1SBJjGGJ5KWizus CfssD9QUcneWTfBfB1EApq zmOkFFjfuyLxwwZfHtq2JP AxV524HEZ6uIjwq6zgVIG2 OEMfRZZkTxEdAx5bdEAkY0 86KRLiMUQKBVVscKe4KZVd bhXasxZdyGQXz461F667s8 ayVXNpzkFzyNaKfhomt8wk D740JHSigQGeuoVeAqOqYI FdeEZdnXX9NLMfDL8pvrwf RZqkJRlkRVLxjtD6FUKdsP JhU4LnMYTsOT9fzrfwVJM1 ILpmPCQzWFD5CeGfDYAzy5 Bhzqy2BfGkrp6dmi99MWH0 z2UkcSkjRQO2KJH7WcBpIi 9uoNSpSZGtCK5oYuMgnVAg UCAopt64fGbjVRowTOF3GB IorxOhd9Bfd0koJrOysbAp R5xtM7JgZRBcMITbSARsFv ZkfyUqn5Key9PxiSUwjJo9 g2jxNVOvURVmpRumi1nfKC F4TCTlmLUpE4dutU6uIGOg OI3yfmuoj3zkTOyiZKqsBW TjlLX9tqN0JJKjwKCdK1Oq cW5dJZGuBZvuKVVpnsq2Ux MaEq6ppGFzbRoaPQhvQbve YWdlXHBnbmNvbnRccGduZG VjXHBsYWluXHBsYWluXGYw XGZzMjRccWxcbGFuZzEwMz NcaGljaFxmMVxkYmNoXGYx KBjkG2csExDaDtGcMna1GK QvoQTiINZdIvb0HDWnuIZv TEPNvPrenK5iPNTqxBaucX 3lbTX1QYEkkmNpyBTKpM6i BPRHqK1aKcR3BQGvPbf9TV J8AtValFFixB5= COMMENT (test code = c5ajpMNrIKWinVJ9ReDpWT 8191) Ohe5nka4SohVSmgCXlOLlh sOMertQxvr56aEO0rP80CN 2dKQDiYuR4FHHupeN1Xbn5 IFXnMBTloDSpT452k0imi9 dulgCnzIB6kZafPKTvpblc XbL7FGpcRYDufzafOLz1ZK hlWGLxoQC6GPViqKNxM6Wi CQZqZY5eavb6UPO6NKcfKS XoYyG1BBZwlLHfAEMxyJog SYnds267OCF6KtVmNVWtko TwmTnzeX7wJkQcMAXQASK8 eS0nvaWdyH70IDFhrRGfnQ 7pl2LxVJpaIOtkgbExiDrn v18pZXBXsATuEMWxvlLyjd PrkJdohLWlN7DvqCDxpOBx oHoxIDQpkEb3aIL0VT0yCC C7oILmO3YfOAJeMNX2lfVw LdHrYmBksE8wfWNrKM1ffI fsRXEumoRus5SwlMYwm7Dc eVQvx6AuNFFdxTArvLujyy 5gHHSdL9zti9LdOFQ6jsZd mkBtgXsmqKweF0m0mFPgcS 0qoAAvdTQ9aP6wIRCoBOHh WLBnMsIvJWUhVEHxQV9wcb 4vU0IdwCf9rV9uBGsqZC17 bP3jWOGzteQsXSVrCQ6cHS HvTtKqGQ7gpR8iuLazlD2u aGVtaWNhbCBzdGFpbnMgKH WpkaDdqn1hTUFogvQfwF8v toULQUL6sOCrWMEbbHDcyF FlAKIjDCAbdvUsa1rpOJCb mE67PlfaCPDlTHZKWVA4ZD Pai9a8aDDrGNMrfcKcLJia Ztg1OORvg0cpWsNyDJIfah GyrP4hAHohg1YnCU34GXQl JtrqwBIgkGDsMWWnnTP3rO O0dR5aVTzfOXGzKNIcGKtw cylccGFyXHBhciBUaGUgb3 AznzQlwSKmcN1mpR2qspAt sbHlmE3rnRVqi67riFC9WF 00YRiokVeaHXYbMO6lftqu l93wIELEXyEvQ4qXKQdqWM WiWWHsVOTEqNRbr0IbmFJ2 eUVcSAJqhiWkOq7lvWNpQv OwKkYyRKLsyZBfwC0ivE4i xUEkVmSplkVkZG3pJDCvc3 4wUSCbYMEkNEsmVZNmb4Pv kJ9goVJjxMR0z4A9VBckTp nlmORrjYXgwWKmsj39TXC2 GlIhK5olisDwSh1cCFPaJQ MzCOCiS40deYoktfEiEnRx rX8glY4ygYArqDPmaFHbUU BoC7tacXWgqM0skE4xQM4y EERHNECgQPVZJETke6DalH 7wq7wutLYsEBReLZKqo2Iw NORrf44vQzjdE0zcXuBsMB 5gOTIueK2rsTGiAUseLTDj SALtTOLiYGDnNwPEtw5tZZ JtlTM7OIotiJcnhGNiUQAa bowgd3PvSLOfHLInMNOrBJ RwUUMaZ8NdJPSfg3g0bQVw uvEzUAGkEE4fcprwT1kmbJ TsGAJyzdnmMIEyCxfsI2ry YnMlpVPzHRPgNEW1AMWbHA G6lX7tDZHhxTc8oPKsxKL9 IGZvciBhZGRpdGlvbmFsIG ZqP5hyiJEccNQgoZIqkRXy LlxwYXJccGFyZFxwYXJ9 CPT Code(s) (test code y6fuhTBlWXKbtNK1FgAoKH = 5391) Six3aci7ZavRSqvLZmAMsm jCDwtcNcws17hFI6pX04VS 7vVFJkVnW1WGNhktV3Pol8 MFCrWVXxbTKkI857e4ksz0 raxeGyxDM7vBfcDFAyfqce LrR6ZQtqZFOpkisnWOl4XD ysSFIkuWT8HUOnaLFoZ4Bp HNOvNV7ztan4SZA3DMgrCU KwYiY2LEXhlPUhAFCffJir VJjen776KQH9MjXiBJYnwq OpgXgmdB3lAwXyNCJ3FMJm P7iaHHT8OIHrOQwpPHlrUH FkXMt1TdXlXGM5GYAmAnkg XHBhcn0= CLINICAL HISTORY (test y1cxwMTpTZGamOK9LiCzSU code = 3356) Jru2uxc4DkjDUmaLElQPep rOXrgsZdax03lCQ3lJ89ZY 2wUNScEoC2SSPtaaI5Ilx1 FDFoUMFbhRPpZ241p2fre6 btcoJqxQZ5oUveCZJtakfs AlZ7EVbdFFZkwlszECv3MK xnOJCpqIR0PNWbnASzA3Os VGIhNI8sfjn9WYL0LEhlQK VxGeB1IETqlUSnPJEdeXzx RGbgn634VKN0QtNxPIVvot SrmHjodX8lGpReWQC3KG35 ALEdGV1xDVMhJT1maYQid6 h1rVOzIPF9YPHmnhlbhFFo FYMoRSurJLR1sO5sHqwbFY J9 GROSS DESCRIPTION (test j9bjyWJbHIMhoNHTWINuO1 code = [id number]) voxnCjYEBhpKBuT4Bcjpax AKdcPD6vRX1zySohcUThtX RxCY7IKTMhOuEpVBYvvINg kvQoCiKgTSRxeRLcaTE5LK GzSW7wyiynWReeLDlnBGCn lqZ9JVKbdRQsE7VwFVSiYI 3bsvhbPGN3XJnhmM9ztiBR TixkQw0sdOHtzPkcOlIyLx NoYXJzZXQwXGZuaWwgQXJp YSq9aD8QYbjjEXV1XJTETm jwBIXtUJ4Ip3cpMZJdeBEh MEI4OVqynSVlXUVfFNYpDH y3LEPnTDngsJQgRM8ezSbx RgtziWtvi9DhiWKzHItzOD SoFEPaIKomSVRwQK5AUjPu YGp5WpA2MqAtOTr0XOl8CH 2XEhToWOObXoNmPlz3VZWl EOz1VZmyFP9VLYA2ELBtKh A1ZhF8SMGhOUYdWIArSpIs XGYgQXJpYWwgXFxmbCBcXG 8kaMablKRadaJFCuHCbE7h mk0cyACrNW0CFKMxhBPDPH N3BH0pQBDSIfsosBKiZNTb uNoaDCuyyL3cDQ1DOWi4qw NoXGZzMjAgVGhlIHNwZWNp ePDrXJMyD2LorrGaVMAoDX ToIXWxvpYaffDjGD1yANKo wSk8WCZvr55bcUe5UCCkp8 6paALnPSzbMLP2lXWhDGUa SIEcYEEtPV95tfUmmbYgva 1hdGlvbiBhbmQgIkxFRlQg JGISBFVYMArlLQLCU7PpVC CiUMMeVJZpFFekYM71oaTp MoS1GD7czFlgvgO5yPXuyM EvlCQfw0AufK7eYLKbIGB9 KZMgRgA7AOEaNaCwjMPbwp XyL6aeBUlflLDlLC8sPBXi nIBjHSQjgsLdhYVddRL8HS SoWQ29gTBawNjrCr5wVBFv f6xenrTqRZP5jD2vFBfzDA Zds5DpfYJhXQDVWJIdGQQj MBVbJQ9caO5uqqsalEfgd5 UkJDfyVFL1Uh1oyKDwPMNh bnRpcmVseSBpbiBjYXNzZX D2OFRTIb6gREuvrLndeC5t BZEmU59vq8PPc0BbUVCvEL acz9tbaWrnc4NlvZLrNEdm EHYywLBaMQyhhH4eEvJtt6 ssdSg4ICcacvN2WUIpdu7P EofnXbiuiBrmm3AzbXMfWR fdHZNnVMAzGPqbNIZcBY8A WqPaDLv4PnD4XtZyDRa0IA b5NF6HGoZvLOXbLnDxUbj1 HJPeBQu8WPfuBW1HJKP9JF szLLf0ZZI5LYDzCOSqTEUb MiBcXGYgQXJpYWwgXFxmbC IwYB3daYclboW7XWGyOAua QUYcHSL9iM9uYghlYXPsRD whWSSlP77lx9PIc2TiHL8Z ENk4xqVyyzyczT8sVXZfgu PlDUsqxZFjD4viKjAaJBUK ZWNlaXZlZCBmcmVzaCBsYW JlbGVkIHdpdGggdGhlIHBh bPbxcrHjF4D0jxNfVF7rRI HoGOKkR2ZrDCJeU71aXNDa gJ1lKFUqTO3nXRM4bF8xkq OigKQiLMS0OOpqTi25WUaz GCHvfGDrL3kdNPlsdMCmk1 LtfVZqlBtepTPnC2MvvH32 fYy2THfjm1ybR0b6qQetWk cdlSD9sTPzoQEzJyXnJ91b bnRzLiAgVGhlIHNwZWNpbW FlZTjnPOFomsjlnRo3UHKx O0Qjb99bNCI6mqRaBXXmZK ccf35cvHvxJRFpZOIje3Jr qSIiu3NgsTGxVF7sWFQirI Nyr8AiyKK5eXLiHSRvV8Xd x62sRUHgAFKxhGFavLL2FK TpsU4rFvItIrNfAoahQDFd SJaybOMsWK0KC7qfwCFvLX RLgxZ4kqdnIOiAXJZNNZZe ELBYJMlhrX4DASHtQPsaCU SuiVNNXGJ0PU2cJVlzaDIk yyixSALrR2SgU7NxczDdiR JzGJPnwoDgy5eoIVA5JGEk sILztKQpYjPhRwenBQC6BX lyd0dbBKZ2QXDkbEPhpHRo OYjxMzIsUxrhFQXjU0VpD9 YxniZ4CPg3 INTRAOPERATIVE i1spaUClXXSpaCQ4TeWcZW CONSULTATION (test code Sda2cbn1VbcXWzpYLuIVit = [id number]) xQCrrbSiqf28tKQ9jK92BC 9dGLYrPuE2XITrsvB7Mte3 GKSlWQNslZVpO712q1tqr3 tnztKcsWG3uJtjOYHnouqv MgS8OXxlPTWhsccxTYn8KU fwXGOrjCA8WEZktQQeQ3Bg QCLpMJ5faus1RNW2NQxhED ZiEkH8WYYapQIuQEQglVhn SUhmw666WPR6OiDoVGZqzy D0QGiuCVObR9TgK6AxEHbv OZS2LLDiCDUcBAYeKDXxIO LxGAhuuaQ6m1toOQUveUJv JHS5CThxiHXlKOBgUXMsKP efSrZJCdSsSlZ4QLG6HKzi XhR7KLg7PHECEsHvQgEcId K0WwF3XZMqYHq4UEy6KCvN YjV4Aqx2MjM7RrZzOGIjAX EzBIr2YJUyEKcdzFOsVCAw HSFhJDhqEJycY75omKeydJ 7pMoKtESAMZjLMrM2liz5j cGFyXGZzMjAgRlNBLiBCUk FJTiwgTEVGVCBQQVJJRVRB SRYOOA3UIhsbRaiUVUIMYk msNAAvuGBzIN9vRCMtxD8n qD7nVJktFUPyvJYySNTgjV 1rgCPnMAD1JVUjUwUWcOC0 imDWql6eRrYiXW6kLRQpHK PwIvElETJyHOX6TjVupEda CBZwJ1OmG4LeseZ1j0xyxJ ehc2SayYAjWX1ifTQioV== MICROSCOPIC DESCRIPTION y2jhuBAmZILinYB3BkFhGC (test code = 3371) Knt7ocn8XijZDetQCmRBjd oGAxpuNmyw12xKQ9rS64SU 8xSBNyNoK8SZJgohV1Spw3 GHQgDCZddVDyC739g1wzr4 rldpInhFX2xAykYGWbhkbh BhZ7NUitPLObhsstAWy7XG xgZFZlpQI5KMRyoVVvV5Ri NLKqIJ1fynv6EMJ2IDscTC YmCtX0RLHrsPChOVVavCnl KYnkn703UDE4UpNvODCjpu EgqNcguS5iNoSgJWZJXVSq q3OgUQYuhYBtaI== SPECIAL STUDIES (test l0amjADlXANck2ksELVvpH code = 3376) FuZzEwMzNcZnRuYmpcdWMx UIvartUkGWyfm5JcV3DmIe AwMFxhbnNpXGRlZmxhbmcx JEOzIOR9ekJqVHYmIBgnEI LiGYnvKc9emNNahGktGeMg QBUsf2swdmWHlpinfXi6q4 xaEQZcGpS8cWKsEMqqI8nz epBeeBRnC4OqwMHzqHw3r7 aiMoKlVdX5gSUyWUgiH3dn rbZmlVOvQNDcEIc6hK55AO EjrC5avHIxXHugeyCrUoO3 UEfaRXIzVmL7BRZjzSOpFY ZeY5pdRNNrMHtnMODvIOgo rCOrNJL0iXpbz9N0dUZrhF MosHceNrNfUdUrTdMAt5Rv VFi0tAokS3JfGJOeUoX5hA QgUGFyYWdyYXBoIEZvbnQ7 zQairgAxu27onFBqQYTyCI AfRwWbdTttZSEuBAFYd5Hy lPbpQDY7qCt1mPvvOdpbZH E0Coh6RF8dca10irv8fNjn QYSrslquNhY4YWdbKWVgkf yiYGm6KPatDPSkuLR7AZRt iDXzE9UdRLHrHJ2emyt1NX W1JNtrXJYmCrD4OINwjFBs UDOfeBrvGNjts878WBT7Ic RwZB1vX1Nvs5Z5vC1ejIRg DFHudDJoDdKpBAGrkd1tgZ EfNUidq9PoIXZ0ywP5vRDk zBNzPDBcAF78Ufieq0AtMo azf0AjP50aySZ5XLpkm0gr ZM5iRsX3hkXmDOkqq3jlgM 3rIsD9FZaxMJ9lFV0wCNOo xX7gvfsaPQWvXtUvuzklEJ ThaJhdkyJlZv3zuCucAAX9 MHghP4supR4nBhT5IVimU3 bzzZ1tIOo0DMbllTI8PCUq xY0mRT2wfzaty2ahBXpgKM kvVWEwaaA5vhJ3JDDwjMZk B7TeqP8fJUQjNC2eeufae8 ujSAV1KXzzHGWxIHG5LvMc JYPbf0Npetj0VzTjh0XrqR IiPAmhL23cn076HYNlfxDi I3ndiERwzkoppUCjgjqkSQ tteuV4NUGhJUToOFtbEBMo XGZzMjJcbGFuZzEwMzNcaG ljaFxmMVxkYmNoXGYxXGxv Y1lkGbPkF9LkROQjLtIaLQ nrGVwppPAwqOXcgCV1zO5i QE2qYPOtbGRsO5WbDPFkqi AguVGeRXV6bCIxbRDmOT0d IWrllCUxr5zzv9VnN7sruJ ryzZK4OS5vDYNwGEApMAuo b2SvxC4kOeszyLYhqkrfUC xmczIyXGxhbmcxMDMzXGhp E9asBrGeMQPbuTjwNLqzz8 NoXGYxXGNmMlxmczIyXGx0 cmNoXHBhclxwYXJccGxhaW 1yBxJlBjCgWzmoJV2vVDBj J2vjjWHuSHXeHWAbI0wnAy GrbU4zbUzpCOlnPaKuFdZp YbDZh185ae8bPVFtvVRqcx BYgPWejQ5tEUyoBBmbJJtm tMMxRMxub0pkUFKyt8z4bC YoCPSkqdTdx4bcDOysvlQi LORimEUkwWEnTVKxt08mKQ upcCgnpYmhOULjy6VcnHqd f2RrSwYmDIuah5KtL33caB JvbCBzbGlkZXMgcnVuIGFs s54cb7srNLPuFiP0xEAqaS R0vWAbuKErh9JmpYopDOLi e5asBNCgco0dvtlnsEAuh7 ZsrW6srnoeJAbahTGaqqUs GKZyw8b8hNWhORAhBAMtWR yqmUg4TYRff011so6xqtT0 hAJcTPY3GRhsKTOcFWIhxd UgZXZhbHVhdGVkXHBsYWlu XGYxXGZzMjJcbGFuZzEwMz NcaGljaFxmMVxkYmNoXGYx ORjeV4ckRmTcB5NaAXMgFd TlyCSzX2utmHMzPBPxOIfd XGYxXGZzMjJcbGFuZzEwMz NcaGljaFxmMVxkYmNoXGYx AOefV8gvYsVaQ2SoVLGgPi IgIFxwbGFpblxmMVxmczIy SUibynrdXREcICjhH6mgEf NgRDYeuRvwLDfse3DrUFJh BALeOfoewwQlIXf9ntLeRV BhclxwbGFpblxmMVxmczIy OGodiwwwYLLwPBqtQ2wvWj MkBFYzoBlwDFrev3UzTHTd XGNmMlxmczIyIEltbXVub2 oyv7JqI5vjqQpcvKX1OYOx L9qqkZKtxVY8UCU6xY6xHD lbniByKVVvb9TfTNHdQAFo LfM6pD9uEIX4UbWCqJhfKK BsYWluXGYxXGZzMjJcbGFu ZzEwMzNcaGljaFxmMVxkYm VdEGPvITndK7wwWhOpR8Ht GJXpZcSkdXqdPXjbYUc7Rk xwbGFpblxmMVxmczIyXGxh rvvzVCQhHQnzW8gmNyHxZF XmsHmmGCuzo9WqDTKjABMd MlxmczIyIHMgTWVkaWNhbC DDYN89MQGhJZOplUpoyK7a qYYVGZEjvrC4i6E1VExsDD YrCTe2MGuabcKcNBQzpZ6m UPSfJB6cFZm0qgDxIEUfd2 IxSI3iXEWwhYJrSTV0ILTx v1PwQ2Evg1KhAMGbOCNkfp 0dieGcBwBLrJKaZUEcql29 XZCrRC2mX7ceANWoAKVzem FhuVJil3KsJWBwiRW5uWIx HM0PGaHCq00mVGApNRLYnq DeYPQfuWiifCZ9gzW3uG1q LiBUaGUgRkRBIGhhcyBkZX Icke1zzjYpHNKhULOov4Tm aCSklGEcgjOrE6Dti9EmBK Sisy71ZLatkICbwj24FD7d T6Ojs4IhgU3zZFdlOPZha1 DioKYbxMYmJPSfi4XnX0bc gypzEXzxuVCzuG6mXGWqAG x9LMXtr6JnWCDsi0ZwNzAk mzRjWUToTXRgFUZmwV40FC C8cZbrzYyohiEvDW2xTDMo gkSwSIAsSJFbwD8sYRsrja DoIDZpglU6l7F0KNagMADz sfRkAjxoZYX6eaRiidB0eP AhQ5jphqhyBVdrNPQdn0Vq jX4pmSMMiZQmi9DtbWCdoT ALgZVfQR9cerDlXK2iHOL7 ODggKENMSUEtODgpIGFzIH I3VUojDnrlONM6lyDfBZIv c3UnIXnfD7ikI74zgDvppK d3jAVivYdukRJxrZBdZCCj gwR1o7V9NLZqa6UwyjhnJV BsYWluXGYyXGZzMjJcbGFu ZzEwMzNcaGljaFxmMlxkYm VxTWCiUUasW0xjFpEoYjLa CmqyCYI6xB== Gross assessment was [facility] performed at ([facility], = 2777) Department of Pathology, [address] [place] [address], Technical component was [facility] performed at ([facility], = 2778) Department of Pathology, [address] [place] [address], Professional component [facility] was performed at ([facility], code = 2779) Department of Pathology, [address] [place] [address], [facility] [id number] 12:54:33 Test Item Value Reference Range Interpretation Comments Case Report (test code Surgical Pathology = 104) Report Case: [id number] Authorizing Provider: Khalif Green MD Collected: 06/22/2022 10:58 AM Ordering Location: [facility] Received: 06/22/2022 11:03 AM SERVICES Pathologist: Fatimah Marino MD Specimens: A) - Tumor, left parietal tumor B) - Tumor, left parietal tumor ADDENDUM (test code = [id number] 3381) Iin9edb7EccVNdrYBiURmo lWIgdeCbqm91uTG7gV90KF 3vEBEjTvR7PAGmiuG3Jzc6 IDCvEXGwqFKeR893h9fqj4 cmkkNrbCW4tAccIWUhzdfz MjL5YLszLOOrptaeZCc3EW srOLMnkYF1BIIegMErH3Tz DLVmXP0syrl8SZX9ZZdkGV KsXuI9XACcjYMnZCBiwTus XOxhw365MWM3YhQeCQAosg JdvNvnbL9uOqWkQMLJIuCe YX6kVEkRLhTexWOiwuSdr1 qrefRevvHlU2xtNRBpg3Xl k0FpSzIjE3ViTJ3mH8EfoU Ocrf2obABaxP== DIAGNOSIS (test code = t4xtjNLiRMCcz1ctMIJvtG 3220) FuZzEwMzNcZnRuYmpcdWMx IHtccnRmMVxlcGljOTYwMl wbhgGgXUJsyERnO2Hdffvn VHkfUM1jHW7mgEexoKOpsQ WuXVRtAbNix3bpg899yATw l5ldGFPNsxkddTr4kNwcW2 1eq7B4KxjwM09itEXyOAP2 LRQdEUNxbMNiATEyTJJ3QM AeiQIiQ3axQIUhLS0jxwdw GQkiVWnzTBPyeUD3UMKkvX SvS9YuWXMxGEuxFFZupee8 OoDgBn9qxSVvfGjxORfnMG HxSXMiFUlbDWXrLkHzCH2p SKKlYWqsGZQgPUY1UJHldf pncCKoLSL5yY6tCVJptM2l b0w9KLQlxcp3TRHiGJGMMV 1evjxis02gMZNFTuTcV8rT LLjkJJAcDVP2CTEjOAVii3 2mUS49TMEuysiyQGDxDq0z CILmAGtiOMSjBUD2DMDxll czdYJjDAM6lY9dZPQudDWs c9hrtlztxIEeLWDsRvDgPM 0ouabeR7dhdERcLAXKKfTR EA5iW2CvYWFsCCcrx2VsAF QcxI8afmOaiQCbDVTpGvFc VEJfyvNagu3tPS1hY2JayO p2fO5uFGinXD25zE7fKDin HMLvwKTcZV2lXUYANNSyAH ZDNQDck9FvaQ3yJILkxhWl bmdccGFyXHBhcmRccGFyfX tfmoPbXNprc0EvTNmfEYVh KM7onGsaYRPqOF7cRKMrN8 ekzZ5apbu3MbYiRDRtBhD1 RSCihnX1Kuu2UZZzWEhyn4 wgf9FdBJAeGBs6dVpzHtNd GEMlx4uueiUvZkAbABDvGE UpNDXyyXYzH522m7tpp5lu piBzbWR2FXGvMOK3XDzgwm QnxyM6SUkmnMViMqA7TToe uwXiQPpzxdVlazMwIoa9PL YsD110WVS1iLais1vvYCB5 VNIuHZFlRnFkIa7xcPKgD2 29LFBkNTEWVFLyjXj7HZGn rmHsayWfrCKOj165C455v7 nuBLXhdiAmuQrIrdgze4sh N991EDDduFVxmkXdPeZaXY EhhGWjnBL8KIYyZX9bvebt GFpvGTgfUUKtqwJ5XKFibQ WrK6JwFPIhMT9qlhpaNIP2 PVdiZPQrGOU1TpDgXMKah5 Jqbfd0VrSbly2kgw65HHN0 i7RuzLxgPPM7NRR5QcLsUx 1hcPKrMXFnAM8bMwOkzRQh APKmxk41pXguVIngVFJ1BY ZsnoZmk2Ezl3wtHvKvszGm J5spH0HoGKYzSIDsLMMgEk QbgdXde0Xqz0GqrPFhoGe4 n1jwNXVwFDOapLfym8hbHN M8PFByoMRcI9hdvI8oVJRp KH3ojwdty6bxOCowMWplXZ QtwNX9cwM0QEKuiVVxR9Ye vI5yGIFyNWksRKZwffc6Xj ZhIf1uhKCznWhhFInsBaim YWdlXHBnbmNvbnRccGduZG VjXHBsYWluXHBsYWluXGYw XGZzMjRccWxcbGFuZzEwMz NcaGljaFxmMVxkYmNoXGYx TAszZ2tzVuSpPwSuWcv1CK FajQKzDCVaMxa0NVLbxCLs GAYBbOhrmG4nMLNupBhogD 2baSG1GAFjlqLoeUILzS8y IGVCuO7bXqH3IUGjVdm2CM M5EjCopUZqaZ7= COMMENT (test code = o9gduSMxIGZriJX1PkFaDO 3396) Egh3nbg7PfnSNaaYWkZXxx lVCplbAueu78oBJ5hM99PQ 1lXJVePmF2ZGQhiiV4Wsm9 FWQrRNEbuTDmD103z8wzr3 uodfJrpUC8hDkyVHMiugnq FwG5CEfgLFUnaaqvUJg9ZV ylSQWtxQR9RGOiuOJhY4Qp OEZvJJ5oide1WLZ7MSeuMZ EzLmZ2GZSzcABvMJJujUyv XWoeq719QOK1PyAvAZFmko SvmUqjwQ3oOpExUFIKHII7 sI9ohcOiyJ07LWTpeRJyoB 4nm3JzQWxpZNdhomFsmZcs b92yIXVWzZKeNCBoacAjrb GytYepaBSgT5KmyNPfwGSd tGvjAUSfcMv0qBC3SM0xHL H9aWIgM0QvUXTwMHG0qsPt CxYkQdSudH8jqORyCA8atY qfPJAmwlFcg8TuwOKmf5Cs zKEvc8FiKAHaiNTweAawtp 7kPTLrE4ahs7PlEXF5xvUs hbEmzClhhPerJ8b6aMShhB 8szSLuhHX0zB7gWAKxUWNb BYKbKfDwGDEpQNFmZB5iiu 2pU6XvtBy1qP3gAHrhGY52 eC2uDVItawIaWFBlKY4uMI KkBtTwWP4cjR7xtEbdhQ6o aGVtaWNhbCBzdGFpbnMgKH ReltIksr1eIMOjfgSifR8q mfHMVNM2pNFqDHJeaNNqpN LcWWQvOPKufkVdx7aiNGFv iA17XbjtTJAdVWKALBS3JH Udv1f9tSPzXWSmxpVyHCne Wdn3MFCvc7egLnLzBMIrkp JbqC7lIQtii5QsWP71SSGk TljwmAJcvHTnFHPnaDS7xL P4mQ5eMGjsAUDeLQXgMMil cylccGFyXHBhciBUaGUgb3 GmtqKmwAUjfF6keZ3xjpTl jfDwtM5viQAkl77toBW3YV 88TMfszJbsBRJuPL8agyza a21yQFBBMrUwE0pCFDxuXO NiTDPpRPXIjEDsh5QouYG9 lESzEYPjqrKfMu8ceLExCk HlOcKmKUUeaIKbmP3kfD3z wJNoXeQtkzMuKE4nRKUfb6 3dWRFpTUCzNWjqUTSnc9Yl tD0jiLVlrAL9e5E0TIerBc trzCAwmQQbtTTiao47MWP1 GgMjU1ougjYzTe3mAMOwII RvDOOcV31ihRoydyRlMrQz iE8stW0onKHctGRwfPWvJK CpE1oemZPnwT9ouA0pCQ0l SBKRHDIiFXBXXKOqg5NxkN 9km7rspRYxIOQyPWBio0Em DXEqe11hTzuqK9zkTkAbVJ 6tOSKcdY4xsTAdISzqPOEd RBVwFUWpYVJpFoAHns3yXP IdeWS6IJlqoNssoCTgXGZo zcroj4ThTHJsMKBhFQGeSL GfPXLjT9HsZXRxp5n0lLUh oyWuMEUxFL2hdttnW5rcsJ LnRHOydmjbHAZqKxwaM7xy JjApfKWxUEApWAO0HCCbPV G5nS8sKLRavEt5iXTaiYD2 IGZvciBhZGRpdGlvbmFsIG EsG1crrLScmYHzdRTywZFz LlxwYXJccGFyZFxwYXJ9 CPT Code(s) (test code e2iolRXdVXMgoWG9NtQoUX = 3355) Ypg2rpi9UwuGKiqUMnRWta zCUglaTjgr82nYZ7cL28XV 9mWPAiIqL9GLVowhT8Vjr0 NBZnXQOkqWSmC515i9ayi4 vinlEnvXT1kRwoPXSufnbw YqP3EKicNDGtivkaKQs6OU ceGPPhoIH3WHVxoPBcC9Ew VSUjJK4sdds0QOI4DBdoIB XiStJ5KSFokOQkIJEpnDdf DGcme248CJX2GmUmOCFndf KtpDlsgS5yOuTdRRY1TYYw U6tfRRG6GAWbADxuZMguRB WzXPe3OgXjITF3OWMbOsmg XHBhcn0= CLINICAL HISTORY (test i8tahDWbMUEjyHW7HdOdGN code = 3356) Mrj5awj5ZfgSUjgEYbETno iYNzpmRfdt79pXW8lQ38SY 6nIHFkKpH1LFLouvR3Yys7 VWIjQFDmsJSjS721s9eca1 ltdiSazJA2qAbkHEWwfflo JyB7PAbaGSRhxedwMFd9MX bgTEEudNN8QENfdZNjW6Ad NBErJK7kwsj9VNO2WJwzPT NpHlE7EGPsbUSrUQAswEpv HIhnr420KMY1CiEbHQWpec AfhWvutG5gLoAfEWF8HW79 MGTdLR5tSFAiZF3irIWsi8 y6pTLxONY6ELNadacdiUTj ERFwXGkiWHV9pI8aLqnaLL J9 GROSS DESCRIPTION (test p7mkmBWbDJTrgFPWACMzP9 code = [id number]) chkaOmSYUbhZWmJ6Zarsfw XCdkXJ9pJH5saQqrkDRscT WtDA0BACTsYnGlYXDwoSQd uiGfYhAjWSAlcBGyrBJ2RG UsTQ2vhfenITbsQHlbQVRp mqF5IPZnwSZbW8XeCXGuJO 2cuxpbQWK8KHchjA3hvnEQ JtjtVc9ktOQflQnuNkNdZu NoYXJzZXQwXGZuaWwgQXJp ROk4zP4XWrvyGKB5GNUUYm ogNADiGC5Hn8bsMMNmuAKp SBK1UOrtwBHuNUUjVCBaHW p9FFRjNKfnvNWjYN3nyDbe XnyopUvgm4OncUPeIWkuBA FsAHNrZTftJJJlZP8FNqCs XIp7DvJ9WoYcQSg7ILy5EP 2SAaWfHKNkCtYbXsd9WCKw CFw3BHeiPK1MJSY1YDNaHw C6GzP8EPBnKYTpPSCqWnQd XGYgQXJpYWwgXFxmbCBcXG 0yrTzfvXCgjnNXTxFEdK3x el8flMZoEC9XOCNviEQZJX T9PM4dQJYSLarxtZBnSSFu mDjnPUiavD0dIF1AZLs5uo NoXGZzMjAgVGhlIHNwZWNp xTRbQQYfS6HqpkLyYSCgZN YdWUDmveGbbjLnTR8aSVIq zPy4XQAym70ggGu4WQGix6 8zyTRmKUjhVBR1mZAwODKg SVArUGCvXU11izKpqzLknw 1hdGlvbiBhbmQgIkxFRlQg REIXXYHJVDgxDYUGB2PfSZ EdMYQlNVNtZPwdLP51gwJu QfF4EG5afCqmquY7nJGieS VddMXbq9ZkgI5vHIJxVZQ5 XCPzIrW1XHKmEdZeoBDflt KkK2cdIRamvWYxSL2uQFDi sHBzZDLdceSrvGCoaKU6YL AoEI43aMJrwIfnVr3uIXVh u2brzbJnEUI0oI2eJFfuUQ Wou7LzbXFiHRDPHEDeLLWb LQScTE3jeX3teghsyKori9 BtIOoxUXK0Os1tbXBfYTUl bnRpcmVseSBpbiBjYXNzZX S6JOCCZr6pXQruaJltlK1e JCHeB54jk3UJw6TnFXIqYQ ekx8bpuJuay1NjpXJiDApz GHXshXMhHEpurB3xTpAxn3 xvfVi5WYyyyiT5OBWqvq4R MkueXzwrdFrzj4OlxEZuOQ koJYJlSYYaTAssHAMpCT9V SfFoKIg0RjA7AfEhTKr1XT m3HD9COaMvFGZhTiHwUyt6 ZWHiQTe4AUyvGL2TTFB2WX ihNZp3OFI0YARpFFSaWCXr MiBcXGYgQXJpYWwgXFxmbC MrNW2yvHdaeaH7OXWvOMqr XCFhWUK2aN8jKkhiKJYtWM woUAYxH99ek4QUt4FnDM9O NNn3ziEaydmzxJ9pDXYais HsBPeohMRfJ7ilWzZyCLQN ZWNlaXZlZCBmcmVzaCBsYW JlbGVkIHdpdGggdGhlIHBh xPywjePlW4O9lgOsEJ0aYW IbLXSgF3CoVUVqB25vUUEy jE2oMBKfPL5fWZY3xL3xrc CsfONlLRT5FCfxLm19YTib MJIfoTIyI0gfHXplmQJme1 BieYIhuTzamHMxM5UazJ89 tWx8HApey6ioD5l7dEdhIl wsoRV8fCWajGKwUtAvQ70k bnRzLiAgVGhlIHNwZWNpbW TnHFstSMXnsabzpRb5VHHb X9Jev57fOBR1gvAuVQMtMU bnv70plMjjYABrLKEgz8Ue yEEgo5IfeZJcOS3iMZRqpQ Imk2NtwTJ5oHNbVLPkN9Lt w21pJJZgFTOgmUOdvHC4PZ XnwN8bWkJxCoMrJhbjAOFl PVlxaFLeHD1ZK9edyHIqSO LDkwO5esdmITjAHPAICZPk CDKRSIkwcE1SLSOzKFioLE ZneSYPRXS3RI8cQUgqsPTi cnlkFBZbH1CtH5TwyuTwlS EcREKaciEif7mzJDV1BJLb pAPmrJJsNnEcZwvvQPU5NP fcv8tgKVF2JWEyvHFfxBXl WEbvIwAgOijuWLXkT5KtC9 SrujO9OUw2 INTRAOPERATIVE c9shlOCuTZXnnWF4MpVaMH CONSULTATION (test code Omx4muy0DipJYnrJKxKZik = [id number]) vLSofcCvce92rTC9hP29TT 4vGLEkUpH4PGGcysO7Dud9 XYXbTQXfaHVbA877a0fls5 aoigPgjHM4uKbsRWAergwq ZoC7NZaoOGAljiscSGw4HL ljLIBfvNW2FWEbiZPxU8Hx AYEpUS8chir7XXF5XUqgAT CqIiJ2YUDgvEDaPHYuvGru JAwwc246JXU7KyNpOCObuk Q9ZVddHPVjB9KrU5EaTFei ADB7ODEbZCUfPIVlNLNmXN RxJTpghxV2k3ehBJRwwNOj GPJ1OLwcgFGbWELuZGDiMB nkTfAKBcXnDxO4FOT4SBvj HhW4UMw5FCVPZqCbYmIkMe K5PjK1USUiJXa2YZn1XUvZ XnZ6Qto9EsD7BaWbFOHuLT ZqKMk5OLNmWSsyaVZjWPOd DBJuUVbdTPwgI12aaPsuaR 1pPxJwYXCFOhYWqJ6hvn8n cGFyXGZzMjAgRlNBLiBCUk FJTiwgTEVGVCBQQVJJRVRB WXHQNT5KPgixNmbPOXUXQt tiKFRhtOUlJH0kWFRikM2x aK8fVGmbFDRbmSLxETOasO 7xiAViJVD1UKGxAwMDlTP6 ytLKav2yLcThJB3eWOKfEZ AdBhMxXEMuEMP6YhGurMip BRDbM5EzH6DnssN3k7vepI duj7FmrNKrSN6qkAZahU== MICROSCOPIC DESCRIPTION p7wioEJmQBEotZM2UwZyZF (test code = 3371) Ekd6tkr4XptKFqfBCbDOmc dMJndbLsrm18pKH4eT72DY 1rXXJpFjC4QBPvarD9Gxk4 GMIaTWCmnYMlE242r3hrx0 bsynPkjNZ5xUtjQBSvtnyn OkG7DDchZWIpazotXRz2GD sbQLFhvBS3VQErmXScL8Vx LOLvLP0ehoy5WJQ3GAshAP GxQbK9QRDofMXhKDBrjAwz WSoty473PAJ4MbKaGLEeaw GbfIzghK4iTcXmYJUAUYYh l0CmYDRzmCSmoQ== SPECIAL STUDIES (test w4yuvINtAWMga6xpWXLybI code = 3376) FuZzEwMzNcZnRuYmpcdWMx GWsrexDkQZbuo9RuA6FvNn AwMFxhbnNpXGRlZmxhbmcx DKThHHP3qgDvKGLoXBgeJB GlQPvxBl4uoKLfiLotEjTd CNIgl7ukovHKisfkwMm2v8 cqWXMsQlX0jPSfHQrxS2qr sgUqrBZxZ5HevTTisBs9e9 xkUtTcCfD6yRTuYOdzZ8oj nmXuvHYiAHQxIRb5fD63VG AmmX7tpOBmSWaddnPmBrP9 JMnuRLDwBcE5KEXbqTXxMO HdZ0yoPKCzAWboLSCbPCpc iXXsSPU5yHmzc0V2eYJfqW FmwNswVfBaVsBwTwGDz9Gf GGg5tGnaA5PqZTXhBtX2kM QgUGFyYWdyYXBoIEZvbnQ7 eYlaxzVqy09gtZAaHIHxPG LmBqHyhYzrXFQeTKCBn6Sh jFcmJAQ1lFp9wZwqKixbYK E7Cya7NN6mqj21kit5sDxt LWCxmwjtYnH3FFpcJLTara djFLc0QXvrQRVkfUC6SYCh gFSuS6McHLSiRB8xxzx4KQ A2JOoqPGUrLcU5KBYgkQXx KNYwrYhhDUbmt537VHE5Rr TfIN2qN8Ekg1M3cQ5mcVWg CTYrqEMgQuPfCVMwkp9mfK YjMPjqs0YaODE2nvH4wTQt sXIlBRNmCN16Nrzxv3XdMp dze2SeD35klIM8PXwgk0ys GU8nHuN0czMiLHvul0davK 1qHyY7EKexDC8kGS4bWEPn rE7zjgrqLOLyPeEtxlenHO JueUgtdtPoRz3lyLunYWZ4 EVnoL4jhdW7dNzR2AFrfA9 fupJ6nFHg9PMukgZI5NFNv lJ0fAK2hvdfra2csRIvuEG tqAQIrhtJ0ueD9RJOtaWBx L8IsyD5fXDDbXJ6corrkg9 xtEJP0ZPcoXHVzWOT4HqXp JZEjf5Iyefp7JmChh9MzbO IeBJklK01ta319MECkygDo U6fxgIPbbeoxrSCxrxsuCZ xbieP5QFTfLTOaMSzdKZEk XGZzMjJcbGFuZzEwMzNcaG ljaFxmMVxkYmNoXGYxXGxv Y5quYjAjL3OjNZGnFnOsES lbQGqsiOHmoBOcrHH9rQ4f ML2kMKOsvPAaY4XsIUMvlp ZchGAtBAZ9eADrkLOeZN3u VKbuhGUwm5wey5WbS2bixY gqbVQ5FW4sMDGgAZVsEMve i9PybI9hTrenzATcmaorRM xmczIyXGxhbmcxMDMzXGhp Q2ntJnFsPRWbwYqgFCkrk1 NoXGYxXGNmMlxmczIyXGx0 cmNoXHBhclxwYXJccGxhaW 7uJwPcDrIxIhowBS3cOXYx C8hmoOShJDExKCTuV9sxPk GzuA1ntDmxMIcvDwIqCaOb LzIHm876ia4aQHTtcPDmwz AOjSCbtV9wAAfkDWyvRBwu mHVqYWqlm9kzNKPuh1r7xO NuBJXbpfEws1uaLTyqsnOu VVMjtKQlwAWqHXHim49dWX bwlQgyvEshXLYco6YwmUgg u9PtQxQuQDgxn0QpO00vfN JvbCBzbGlkZXMgcnVuIGFs e70ah2awRLWnVeB3pTDyzC M1vNPgkNBsi5HmvYvtXAAm l8ojZFCtfp4hibmrbGLob2 HahU5hjryeXAcxnEIlktLd BECje8e0eEJxASGmOPKxXR oobGl6UJYpd774ic8uufZ3 mEEsYZN7MUzdYNHkGMOjwa UgZXZhbHVhdGVkXHBsYWlu XGYxXGZzMjJcbGFuZzEwMz NcaGljaFxmMVxkYmNoXGYx MMrxE3ijFcWoP1KgAKVwSc PesKHyJ1wriZJaPOFjQFvi XGYxXGZzMjJcbGFuZzEwMz NcaGljaFxmMVxkYmNoXGYx ZFykR5jrBdNwN3BwFLEnBe IgIFxwbGFpblxmMVxmczIy ECrzlhvpKXInZLwsY8fkDo ZmOFOeoYjwDRjwa4WkZMAy QLMsQsmftdAdRNd3mwFfIN BhclxwbGFpblxmMVxmczIy XUbwbmhgLKXwEQbqD1cuIz GePCWxtKjfUCfay3FnKUSp XGNmMlxmczIyIEltbXVub2 rlf4GtD0nqmGddrIQ5DJAe Y3xteIQcgLJ8VUU5qV2dDZ psbcNeDAWsv9DcUTAnCYPi YwE3lC4hWVO1NpLXeKceYU BsYWluXGYxXGZzMjJcbGFu ZzEwMzNcaGljaFxmMVxkYm FdOYVtRMlzF0eyQcDrU0Oh LBNrYdEikIhbLMhvTIn5Ny xwbGFpblxmMVxmczIyXGxh ngxrSWCmVEpuT4dtZkUbYL LapWrlXWsfx2ElETFgKAFn MlxmczIyIHMgTWVkaWNhbC IGGA28IZWiDYLigExtmC8e pBAITJZwxxZ3y4D2EIcuNI VsPCx7FSxtdrXaPFNtaE7d BTGpCW1lXOk9vbXdPLOxi6 LqCG6xOLNhvNBwMGB9DQGd h4SuQ8Gwy7UnTKTuOPQbqb 3uzuUiLxKLkBGtADJjog13 NXEhPP6yJ4prIBWfJDXoib HlmJDng8DsJECrtOK0xAYj AS6NDkOOx71sVSJrJOEWjx FgCNYrvYbojFS0puD3mP2u LiBUaGUgRkRBIGhhcyBkZX Mofb5nrqCcCRCsLKFxk6Qc xACqcKMwraIjK1Gwl1FaHV Yfki75XLajvXKxax08PQ2j B9Qvr0IgvN5iRVrgFGSvg2 ZblAMprOWyMEJxf1VrH5ej lgcbXZcnyAZitD1dZBBrMU v5UNGto8ZwMWNyo9SrDiJd ctHkUAGbHKAgKSWsgG14DX J3wOtnbVljjjElDB6cYTMz nzYiBFQxGJQyvG3lCGbwtp FqFJDpwdH3p7F5VRuoZDIa xvMoIejlSPJ9pbExgpS4yD HdB5upeujvSIywJGFvv9Rd dP1pxRPBuWFlb0MyaXBcyM TQrZAwIP6uxmBxFL5oARL5 ODggKENMSUEtODgpIGFzIH I5HNjtYoudCDS9amYkORJn f2JeKDknR9agZ18iqYlnhU f0fJAmuWahtZBkmQXgEEXc qkS4r0V3PPStj8OmdwrnSP BsYWluXGYyXGZzMjJcbGFu ZzEwMzNcaGljaFxmMlxkYm NqDRIrLFgzR9ztPjQkJiYp IsluAWO7qH== Gross assessment was [facility] performed at ([facility], = 2777) Department of Pathology, [address] [place] [address], Technical component was [facility] performed at ([facility], = 4558) Department of Pathology, [address] [place] [address], Professional component [facility] was performed at ([facility], code = 2779) Department of Pathology, [address] [place] [address], [id number] 12:54:33 Test Item Value Reference Range Interpretation Comments Case Report (test code Surgical Pathology = 104) Report Case: [id number] Authorizing Provider: Khalif Green MD Collected: 06/22/2022 10:58 AM Ordering Location: [facility] Received: 06/22/2022 11:03 AM SERVICES Pathologist: Fatimah Marino MD Specimens: A) - Tumor, left parietal tumor B) - Tumor, left parietal tumor ADDENDUM (test code = d2iviIVhDPKstMM5XjTcMN 3381) Vse7jzl8DlxFKtnUNsNFxi yRIwwzYneu93eVZ6cD92PP 0nXWTuWjC2XRDklnD9Dyp4 GXRrMXZswPWbM146e5jpj2 bhbvRpsWS4eQknLLJmwjnu IjS8EFjcLYBhiaefLUa8JW chNKUfrPL2GPZtnHVgU8Fs RPWxZO4uzdb4XIO2VSvvUJ UiNlX7ZXAmqVEfBGPyqVco UOxdz625VRI7YcNqLJGxlb FbuNdhzM9oEeFxQSBHVwCr IZ7cPNsMLhSxkKAhbwSni0 mybxBjbbEhE9pzCTZwi7Dr h0PoVfYpC1TfFQ9sR9JqyJ Rbeq1nnEDikG== DIAGNOSIS (test code = p9tjdJNaQOZxw1luIPSzuJ 3220) FuZzEwMzNcZnRuYmpcdWMx IHtccnRmMVxlcGljOTYwMl piytYxRVDmcQCpT2Qfgadv UIqzVM1tDN8rmDkffOTqcU XfADTeQgLcm3zrk149hUVv m2akSIURksxnnUk7hLbdI0 3gc6S8ZuolJ44ixPBwKXK8 MYSdSZGgpVWwNMXuKKZ5VB NmlBYrC4vaUIYePI8rourt XQkjGIeqQUSjdUW0GXJcgV LeO7ZeLSPyXCkkDNTvzsr2 JqIwSi5ekGUtdNotYFgfQY NrYRSsFZhrFUBsIjRiDY6f MCAnSXotGYFoJFQ9HIQsmb poaSSrBQX2vX5bYYGhgY7x o6j4MXRunob5GDLtIQZDLK 5zsangy92gAAIZRpCrX9lZ SQqiYOLwLLF4XRVoDXYez3 0jRM91LDTszhtfLDGnFo7s DIQlGDoiTYKuAPB6HIHlzv kgyODdCXV0dL7qAMXwsGCy n3rvwncucBUeKONoFaImEX 5toxtcH9ihuNXlTVBKNaGI QX2vO8ElZBGjVUcui8JsTD UrbV6ievWwcLAdRSLsVvNu FPCsloToxv6aDU1lM8ZrwV a0hV9tPMmlQQ78pL7iWBkv FGAqvOFtFK9cYHWSVJXuDT DXOCBbm5ShtA2nBAIlfgXr bmdccGFyXHBhcmRccGFyfX eoxxWfHCqbl1IyMWfnNBKj FV8pdQumRBRrIP3bRFHiI1 dsfQ9vksy1GvKuQTSiSlX4 LFAciuT8Gpt4VGBqDMmrz0 pdf8ObCKHdHDt1sXsoVrUl URBnv4vogfGzMtUyEXUsPF YlSPZbwEIjU871w6hsc2wm koNrkBL4CIAvDYD5TZcbww QgrdS9NHxedYToAmM1EGts bdXhUCiacxUgweUwSsk7NI ZeF930RKM8fTwrs3hnCLH7 CZLvDHBgPaCbLk5xtKEwD2 73ACPeFZEPCIBdwRt3RLFh lkJoviTveLCJc220X137l7 nqCBLhxmGxsGrHmpjtq2lj Y984OKTsnCKbckAwYkRkDQ EhoXWisLW9VRSwQP5hjopi WRbwRGgqNPPerwW5DCIdkB RmJ3GuIEXyFZ8yqzqlGGH7 VUfeHCLsBFE4LbRtKVEcu6 Qamjn3VqYhbf6ffp79LOY1 b4RsvBcbDSH6ERV4FuBhSr 1pxVWkFDUsTR0vFdZdpFPt ZZHken85eMctQQrcDGW7KS GpygOtv2Aic2ozOfMlfjYg I4pmP7LsKWTiRDWdQBMySv VcenNtn4Qgr0SxdTBnvEa1 g7rmNBFpBDPmhVrmw6siHR X6JMNarYGaW8hkxE1aRSBj OC3xrmlqn3evUTzjDMkfCB SakRN9joP3TCYywVRgM9Vk eC1hYJExMPbcWOIxqhi7Cr FyBv5eoRZzfDwmPAuyKpec YWdlXHBnbmNvbnRccGduZG VjXHBsYWluXHBsYWluXGYw XGZzMjRccWxcbGFuZzEwMz NcaGljaFxmMVxkYmNoXGYx GWzkL8mvSwKgEwOxQyq8PM LthWTyAPXiEbh2YAKhbVYz JTLZrOnfyX8tIDDwdWnmhY 7biML4CARujoGpeXLZlV0g ZWWWvP7eJwR6HWZyOqk4RX R1GhAgdYFbnX7= COMMENT (test code = u7djzNEgYFDyhMD5JdNaMZ 9016) Dsf0nai2GvyMAccZSdJEdh gEZleuDjxy82mTF3iK04UA 8iEPWiYhV6GOQkueG9Ncs7 TYLpAOZmoWIsT718o4vjm6 pdokTjdXO4eRuoVVCcryke ShQ3IFnlKCAckuikXLz0YJ taEDSdvMC7ZDLhqZNmI3Lu VEWtAI4hbmf8SFR4RMxnWF PyIpZ7LKXptCOhIOHymWke MFfol826KDN6UbIcKUJkfo JlvZzduU3aToKhSIWUCHH5 nD3bdoJysC66BFNffZNmrF 5ed7WgJNljEZakmqEywEax q72sJAUOoSWpBQPxszLhpm MqxSnlzMFeQ2NfaNFtaAPx jMthMYPdiWh1eXX6FP1dWP J5sXFvQ0SpTXFhBAS1hoCg OvUjGoBfeL8neQAhUC8vqS vlWTDczwSnr6XuwADgd1Uh aYEag2DvVWKgwMKplWqmxf 1fRYJqE4wgq7TtCHH8shZj vdQobDyjxYreM5u9yHQggG 0wwYGivYP1cY7qBOSvBCCq JGYuZfDvRNJkZPSsSN6zlk 9oD9PyeXz4aY5pBIhmHE17 sC3cTROmyuVmZOWxXB6yDH PeCxMdMF9svN2lfOpasR7p aGVtaWNhbCBzdGFpbnMgKH TbgyEtew8qJYVzosCatT8k ueLSBQW0kLOyYLNzsQOwoS BcUQQpLFKmpjHhk5plTGVz fO82AilzNGXbZFJERAA7TS Rco4w2aLBdOHRttaHyYRpl Jzg0BZLke6koQlHbWDHdjz LyuK7vQFgyb5AlFW89RDXg ZypagTWhtEKaXINvoIO7zK J1sO3wDHcvHKFjOWSsVBnq cylccGFyXHBhciBUaGUgb3 LlpmUgeUCsmO1spQ5nckBi qjYzzZ9yeKOfc35feQX6XI 90UHbcoPjaTYXjCW7ippzq b04zXOEYBwSrV8vDUPpkBZ IuGSMyHPFXgLDkl3YetZG8 kOCdJWIyutSdWh7hbIOuYs OrUpFsAOEueIVxpN6otS3k eJCmObKoqvAeOR3nSNRzt0 6pIVDaLTUmFKwsVNAwd7Nj gQ7waYGsoRR0w3O7VKewUh emkBVarEEllXKahm41NXN8 BwZaW8xdzzWcRt8kAETqCO GcQVMqS99nmZadfbUmPyTv cJ4tyL2dhSFdnLWofNHvYJ EhL5lvsKLbeT1xkD4yQH9k BAQEKZXsQEFPUCEhf5RyjI 7wu8saxQGzCCYoPOUmg1Ag GCWjp31oCftmN4naOlTxOT 3cEHNpfE4deDJfAEmsOJNw PTGhYEQwPWIyUfIGep6yNJ XolXZ0HHpbaShpgFVxBJVs qyrwe8LfHJTtUZXwWFBdJM QdUOVdK5MwRZGmw4m0zCVv atPgLQBbGV9kbhogH6clmD GcJXXifmqxQDQjXodyZ9xg SuBktOBuWJVtGDM2MGKoCV T7nA8oSVHwoKo6aZBtdEG0 IGZvciBhZGRpdGlvbmFsIG AaE2focELpqXZzsSUuqBYk LlxwYXJccGFyZFxwYXJ9 CPT Code(s) (test code e9afuLSwTZYjiGE4QbXkRQ = 3352) Qfh4azc0RkcVCrpICzVKfz tSJtymSieh46rPZ3vM48EY 0iVLUhZtE3MIQunjC5Hme6 PGHgPVWpgOSvW287r0bac0 avloDueXF6dTduCBWxtsiz FjA9ZUxvBNPgnohfEUm7YA nmTBWddLU0JDSnrYUeF0Vl BSWgFE3wean0KSM7RLbgTI TzBvE9XHYpqEJzRCTtpSkv UNeeq408QEP1RyQsITWvbe FugYmfyT7eQqLmYMP8QRNv T8zsNQG0TOLdDNsfRHbkZR SnMLr2UhCrPWK0XDIdZsea XHBhcn0= CLINICAL HISTORY (test p3xeoMPlYMYkbFS0NnVmWI code = 3356) Sjb3iri6XhmDVwvXJlFZvx wEIsfnNpti52eAX4eR01ST 9yAMJnNbM2JMPxazR4Dbu0 XNFdUNMdtXVkK680x7oym5 pstaVqaIO3eBwdQAUlfmqz LmF3SGdrUQRzovtjBLq5YP pkMMFtwMR8SKUgzMViN9Aj MQMwWK4obrz2VTH4FPyhCQ YfCkP4MXMrnDCsHPFufDnj XWnzo732TZG1RcJuKCQpwc MnbEopwV6uLgHsVJI5MF10 SANuJP5jDEJzBK5uhASzi3 q6oOAwOPN8XDCytmcuaHNj ZOLyDBaxPOU0sP3xIaamRM J9 GROSS DESCRIPTION (test v5hcuHTeEATtaLMREEJrH1 code = [id number]) oilwYaMJDnjOYxP0Irskdx QJubRB3tSP0msGeiaBDtoF RiEN6GBFZoVbKzWZVpcIQy jfFqBpFiEAJdfTJkkEG2OZ QlTP4ecajxYDogMOufMVHs tkV2JCNgqKEyS4AuZYTyTQ 3xcoimOYT0RPgabZ2whgLO XpgoNc1tpMVicHaePgFwDr NoYXJzZXQwXGZuaWwgQXJp EPz1jJ5ULlmoMNC2CNJINi npWVSsUZ4Uh9cnCBSgdGDx CNF0NLnkyQAmOEJkYSPtTB y2ABWbFLgxaJPnGS4nxAsy TsjriYpnq8NvzEIxVTfkCS MwUPMxMKenAYTcAN0WMjZh GJs3QtS1AeNuTTn0FGw5CP 8OEvUfXSIoNmWpYef0DWTx MCz8FDarMS7BKCZ9YMAbRl X7BzC6RLThYHZoWPJpVnFh XGYgQXJpYWwgXFxmbCBcXG 5xuRcnjDRrtgPABlAIpQ6g dg7foZOxLF7KIJKltWVCOH R6SE9cHSZGYhsefNTnFWDr uWhvQZrrmG4qGP1ISRb9bs NoXGZzMjAgVGhlIHNwZWNp bBDgMMByT0JxzxZoANTqXG UqYFFscmBzstIyRD3gDWZj bTa6PZEqy54uuMe7QZWzv3 9suNAbZAldMWH2lOVrPLUk MFBgMAQmJD92wzCrjlZpoa 1hdGlvbiBhbmQgIkxFRlQg RLBYQKKQLPdcWJZYP7HpVH FrAYJuBOGlKVxlFH37huQf DwX0KZ2rwNfvfyV0wXGfdF TcmVCbc8DpiE2fBDJbAXR1 SKOqIaB3HKMwEhKazVFgeg XaH3goOXjoxQQtJY2iWVRh yEKvQMTgujUieBPocMP4TZ BiFL73iAEexLxnXg3qTFSk u7usfnUyACX2dY5uUVnbVQ Pol0VrkKCzHPLKGICuQSYn RLHoOJ7ykF7aghpjoPipm2 KiLNceWJL5Qe0mdSIsVIBa bnRpcmVseSBpbiBjYXNzZX T2ATWURq9sTWdtjGgerO4k UOYxL42ri2OZl8CkKWKvHB wwk1kurIyqs2RdqGEoAAqn HWSfhDOcKYqyxN2jRfRzg7 xzrAa4CQjpzyT1MPWadr4O KpdlHdeynIivo9ZxnGKqBZ utJJHoNMCgWTyjDLFbXY1X TbDpQWg3CyY1BfNdUCs3BA j6GV5TMtVkILOeThEaYzz1 PJJkFWi3SBcfUR3DUPX5DR llBJw9HWE2TJVnPMWfPJIv MiBcXGYgQXJpYWwgXFxmbC CjJJ6yaXbapwM2IXPzQXii NJCqYKL1aU8rUodzJHJeSF heTLKqO42lf5ZRm2IlBN7F KKj1zuScqbjekQ6iXUHhxx RsYSveyMWoT5tiBuUdDYVG ZWNlaXZlZCBmcmVzaCBsYW JlbGVkIHdpdGggdGhlIHBh uCxjxvUoC3F9onWgAT2mBE WqLHWqL1TzKAAkN20xXYIh xL3aIWJhAJ3xDBL6kP3mqq EbnURjZBX0YGnnJq77KZrn EIAfeVXoM1cjGIgydIUis9 ZxvAKqlDkxbCNwL4UitK30 aKo8NOgxh7asM5a7qRmcSo ljcAT6hDHdsOQzErNmK16g bnRzLiAgVGhlIHNwZWNpbW AgCTfwJAJcwbgwjKk0KNEw Z7Vlh32jDJL8wxNmTTTtXE vpr99fiOuwGHNeENXmf5Wj xCUzq9WdrDBvDA9gCDHhmW Hoq5DpvAZ0uGGsHDOjH5Kw k93rLEZcCLFedDUjqMH9DQ RqlS6dMtZhIrLqEdofWLZm TRrlzXRlVO3NY8ideZBbAC XZtrE8gbalLVyEAAGKNAQt LRFNXHjqeG4PEFNdGExgUW PwpXINVUS1XQ1gKTubxUGv zjoiNXImW7CtB5LbdqCrcM EtJSMgunObq8buEXR0ZLFp qKMslJXmMjToUikqFZI8XU zfp7siEKR6IZVayWCtgZCk QAznUfLfOpaxNZPfR7JcI1 StixH5AVz5 INTRAOPERATIVE c2vciBXfHTSlmTS6SyMuWZ CONSULTATION (test code Zgm9knm2PsjLIjvVSbJZld = [id number]) tXQzgiIpsw97qHL0mN96BI 9vNQDoMeC2MJEalbB4Lym3 KAUaBJWxgLEmX762p9gzu6 tnhrZtxGF5xMzmHSHjnwdv PqR9ZVouMYOlkcgpZYr1EF imNUThnGQ3HUTgfZGdQ0Fi IJEkOR9juym7AAF2ZGbbKG OtSpS9ZRRvjWDzSZBpuDfi AViaj622QOV4GlMiMSMkme C2LMptRLFiD6SuV9FuSVwf YQP0VSBnYCXnUXDoVGVoLI GoRHjhwcF1d6ezLVDhlHAl JUE6ASahqIZgVCNgGYQpVO tlZoOSOrLxMpL9ALK8VKqh YaI2ICw9TZDSFyOqSdZnUj Z6LvH4UHYlGAm3EKy7OKvM SaD6Top6BwH4IgVcMATqRI ZkSCr7PEJvLXtliCEsZUBi QCEyPVqeMXjjP81osPvtaU 5gNzCaBMUGNhGFzW1dpn7i cGFyXGZzMjAgRlNBLiBCUk FJTiwgTEVGVCBQQVJJRVRB LXFUEK3OFdvjRlrWZYSTHw bnUJNbqIBxUN0oUKUabU9j mY4jFAgbYRSisJUrLYAjaS 4vuYLgQSP7MIVnUnBUlKD0 gtEMii9eLwIxOI8zREMtKR FjUrWwJZIhYJL8NoOshTpp GVNpP8SzB0CkjnC7s7rqfB mbm0ZzbHFkVR6soHGaiF== MICROSCOPIC DESCRIPTION b0slgSAxQPRmhJS8PpHjKN (test code = 3371) Auq8svn7IuiGEzeEFyKWwk vKKwcqDpez50pTO4zV55LM 5lWDDdCpZ8TLAwajH3Zsy9 FBPbUQHmhCCjI770l4sdd7 nmrbXolSQ8qJsgRXDepgot NlB2RTghJVMjzfayONp7OL azZJZqcGB0KVZliEQoY8Zp SOPkRZ5arqb4VKR2LBzcBN ErNhZ4ZCSpyOUsEFZplIxn DYxqt600SLR9YbKpQMQwpv NlrCqwwK4hBcGvIQTYHLHn t4EjICXstMJosL== SPECIAL STUDIES (test n6wimHSqHYMtn9mxZGDhaU code = 3376) FuZzEwMzNcZnRuYmpcdWMx LDqhqbKfBMgtt7FqL6DkQy AwMFxhbnNpXGRlZmxhbmcx QKZeLVN4ocRaJBIfQFktIN VyRFiwQo8gkFCzeVziTvOf MVAmn0rusjZIxsytfCv1k6 gwELNlReA2rGBuPSwnU2ik wgZhzTTcA5LskHMjqIr5x6 bsJqPpLfG9hNIvRLygH8rg bbZzzNPwOMMuMDx5bE57YO KefC4hcRJeYSvegtDuTlA3 RZzhDFHaXwF8SURcvTOmQA IbG4chCLQwILshZYHpKZou aJHfVKG8iLnyh2P6aUGryK MrwQclRcXnYjEcPqHUh9Az WSy2fNzbX3YvSLYlEgD0pA QgUGFyYWdyYXBoIEZvbnQ7 kWspanOgf68xzBFwBETeJN KuOtYtsYabDUExPZKNn5Ln tOqvBRJ7qFd8vWnfVzlbST T0Egh6JB8scs32clv5uCbz LYLjriukLrY9NGjaMTNhjj uqYXe5ANsxORRoyGI9VDFs uGTdS2VpBAMwJM1borv0YK I7UHvhJJEgTzG4OPBvfEKv YAXnsYooJKwtd360QKB7Lo XeSD3xK7Qrm3N0zO9avNDh ZQLlzAGxDyJySOQbmo5xrF TpATubf0EpEGB4knF7nJWn wULlQJPdIM36Btkcw9EqFx ddh9KlD24kcSC0AMklb6py YL9aIpJ7zaVzBZyjl4gwpI 0iCxY3WZxbMU7zAJ9yCFVd hV7hdujxPPYgIbCppcilAJ MczBjgkbJpJr8wtCkwIVM1 HTriG3ykrU3uHfC9TMrsE4 gboV1sJFg5FWoksDX7VFJz oD2lSS2qaftgm0wuMVykEE zqJRDmylG7orE5OOAjbEKp C9CxhN6pMLFgDQ3uyhiko8 gnLJB5BOsyHUTxOYY4KuKx JULio8Biemr1GoTkl0KykZ VwUQquC89ma342GYCnajAx M4vxuBSwudzlfGQduafwJP ltirW8YRXwMBNqAEcbBXSh XGZzMjJcbGFuZzEwMzNcaG ljaFxmMVxkYmNoXGYxXGxv S8zbFyGrZ4GaWIRxBgIxMA pePMcvxNXsqPVwyWQ4rC0x VX7kAEKqxRChU8PeRAWvol BshXKcWGA4gASxvYMqXL3o SJsqfENac5vhw5KbH6ixgD royKX5OD7mPCMtLFSbCRjd g5UahH0dLurafLUklnmjHZ xmczIyXGxhbmcxMDMzXGhp N7atTtFvNARthHxnZLezq5 NoXGYxXGNmMlxmczIyXGx0 cmNoXHBhclxwYXJccGxhaW 3xUvMyFtFvMveoJY2aTZKi C5ecqHDlYETfBENtM0vbLz OobD0hqRuyLEieIoYgNwWw UhZBy615qq3mPRMjoYPwfc VEuOZazH0sEGvsWDnoXCci yFWyTEcps4ueBZWii2o6uI ZcOAUuduWmm3jvHQmskpIa MXOqxTOadFJmKJIwn11wGM rujPulnNnaUKKvr5CwlTks h8CyEjWwQVkku9JzN97ygR JvbCBzbGlkZXMgcnVuIGFs l51by0goTLGsEhW4rNMvtM S4rVMrrINpq4RrbRtbZWGh h5ulLAZlyj8nhtncbGXhm0 EuhH7vleupIQfirLGlvsUl VFTkx2h1gLXoPDEzRYDfSE jbcOz5OXPss981fw6xzcF6 tWQkAXH1FVmpUCDoFQRqad UgZXZhbHVhdGVkXHBsYWlu XGYxXGZzMjJcbGFuZzEwMz NcaGljaFxmMVxkYmNoXGYx UOloN4rfIoClJ0LfLCDqTd CcvSVkK5mwzFZoKUUtHWbs XGYxXGZzMjJcbGFuZzEwMz NcaGljaFxmMVxkYmNoXGYx ZYbvQ0lfZmZdY6ByWVJlHh IgIFxwbGFpblxmMVxmczIy XMxhtdkoSXPbOMbvL5unVv YlYRIvgRlnYRdhj5FlKGYu BPNrKszlsgTeJLj8hqTgXK BhclxwbGFpblxmMVxmczIy FXfwkaqrRIMcMFibG7ryLo DoWUDlxKcmASshm4NcYZBj XGNmMlxmczIyIEltbXVub2 cpz7WkV6ztmFbuuDH2DOWw B5hjbYIzeHO9UFU7dJ8mAF qdpvCjLNWqi5QtJHGdJAZf TvN0wZ4uZJH7VaKAjVkhPP BsYWluXGYxXGZzMjJcbGFu ZzEwMzNcaGljaFxmMVxkYm OvVKWlZPwkI7ucIfEjM5Oo HLUrDjPobCbfZThiIIs1Jz xwbGFpblxmMVxmczIyXGxh otitQYOeVOjlG9bmNeRyAX PjsVdzRSvur0AqIKMdVNAd MlxmczIyIHMgTWVkaWNhbC GKUB26HKNsDNDxyCqmjQ2m kZKXANPobpD0r8B8ABniDV OeEIg6LGglxxKhTOKlyD2f DCBcKC4sTHj2cuWaVGAsk7 OaVH9dKBFtlYShOHW5YXGa j3FgM0Wkn9OeVLCtQDNuvx 5pakFuUtSRgPTzUHSagw24 JNBeOX6uD6xxXZRrBDIbyc SmjCVvy9JwAANdqQA5nTEk CW0ANhATu46cZUEjWXSQwk HfVYBofVooaOE5fzD5rS8p LiBUaGUgRkRBIGhhcyBkZX Nzvl3makGjQYYkCCVit4Wz mUAbuRRemgZzC5Fwe2QfMS Voab90TLlabJOizx58QQ7s I7Tpl0XrjI3lPNvhSTPei0 TpeYUpjUWpBSIre3YoX1uq dvavHXsjhXOncN9sGAMhUQ l5JSRbq3TqHWUmj1OuSlHz fkKsETCiRGXsENYdiW30UW F1cOhrqKvekqWbRI1qYNTv amWcTRNoXHJctB9oSUaaas PzRHAyorH4h4R1UNurOZKp pjQjCfqfANV9ydPjirK6bW UmE7xzwrihFYnxEGHkk0Ms cA2ceSSHoUBai3YgbUNfaA JCeVKqOI5lwxWiQO7tBBO3 ODggKENMSUEtODgpIGFzIH J8YZnqHsnxZZI4kgWsGTEq v9GuUAqyA6duB64zvHqurD w2jDVlkJyvlQSdgOApGOFv udW4t9T5GIQqz7XzxkarZI BsYWluXGYyXGZzMjJcbGFu ZzEwMzNcaGljaFxmMlxkYm SbNVMcCNodJ5ebKcHoFwKc XgipQHD4xO== Gross assessment was [facility] performed at ([facility], = 2777) Department of Pathology, [address] [place] [id number], Technical component was [facility] performed at ([facility], = 2778) Department of Pathology, [address] [place] [phone], Professional component [facility] was performed at ([facility], code = 2773) Department of Pathology, [address] [place] [address], [facility] 12:54:33 Test Item Value Reference Range Interpretation Comments Case Report (test code Surgical Pathology = 104) Report Case: [id number] Authorizing Provider: Khalif Green MD Collected: 06/22/2022 10:58 AM Ordering Location: [facility] Received: 06/22/2022 11:03 AM SERVICES Pathologist: Fatimah Marino MD Specimens: A) - Tumor, left parietal tumor B) - Tumor, left parietal tumor ADDENDUM (test code = [id number] 3381) Hvu9jnh0FgxWJusCBmDPke mQFpfbFiyg68jKN1yR92UF 3bPJQcLoB9GXYgkvG1Dtw3 ULScOWGsqNGjI991n1hjl9 oyycEaaLY2vGvxFLIuvyxa LpA2OGxiHTKozdcnPMa9LM piKYCyzQP3TFVpiEPdC8Uy CVHhQX0shfu2GVJ0HRddOR NvCzV8ZXAbgSHiAFJawRnn HUjvx400ZWQ0QuDaJASata GprAgcvD4qRqGuHGMREzDd ZA9eUPpDLhUreYWvfaNka8 uruyNnzhQcP9efZDPfy8Ft j6PfHsCyC9EsAP2eN0YcwN Mcbu4uuRJsoC== DIAGNOSIS (test code = a1ybdFWrPPJxp5ilZANnmJ 3220) FuZzEwMzNcZnRuYmpcdWMx IHtccnRmMVxlcGljOTYwMl ekfwNsMEOxvTRuF8Rpiujx SEqvZV0qAD6exNbpiLIzuF BrKQYeIrFwk3gsj429wJKk l0huPZJAwclvqXj1vQzzR6 6vw4I9PlvfZ12ffNSdTQX3 WMJfQUDzuGHsBHWuTVY9SV OynEIcA7qdHTOgCI5mpdef LXdrRYngWRXxsOE4IJWlmR QjO4TrUQRuKNfhCDLnufz5 TdOwUd2ijKAvaCxfNHsyJJ JhLNOzGLrdXVJsJbFgWI6u SRJhWXfdKRWpYCO7RHEsjx npmOBcRMQ3yY9jPSYurP7p h9l8FRXfzwa7WOJiYGIPIH 2rqwpnb13yRUPQRcFyU9wP CSwxWZRpCFF6ATAbVOAob2 2zPN47LIQtldwaIIAwLh7b AAHwEQpfTDBuXVC3BPKvdr xhcCJaNBR6cB8eODAreYGe c5rygclwaQVdDLShUuPaWJ 1vbzhuD8okuWLnATHWBgUG FC3xE1FfWHRzIMuki1UmJQ WtjH2xpqOqtEMkYVZgGeDg GNNwmrGrtv2mNI9cV4EviV a9oB5pCRudXW71kP8eFWvw VMFtiHHdTI5gJEMMCOJkTF KGRSGwb0DzjJ5gAMVochEs bmdccGFyXHBhcmRccGFyfX lgwoYfWDghl5KfLGhqHRCw HI7hcXnvHNYcRP9cVJHnQ9 ydaE3xicc1AgLoSGKcUqS9 INIhueM2Ddh2YSPfWGcht2 syi1GzFSDlUDo0sIloRzVo BGZhb7rhcdHzHjWfABCrRD AiIYNdqNLjT596z4emv8mb ibXtjAA3TUIdRVU8UHgohn CopbK6UFxvxWYhPmQ8VUuj ibUiHDcfuvXbtpAjOui2EC IoF569IEG3zOiwy1tyJQD0 WICbDZYmLpTcLe3ujEXvW7 97XRQaOEPZDNTzgCv4ZGWp ukRwreNdsXCHh798V941m7 foCCDtbeKjtCyJcqkgf2mk G173DZTltFRjlkGqGsTqVS GkcINjkOQ0YYNbIA5bxphx EJxmDTzvYEBucnN6PZPcjO AhX4RdXDPvGR6iqiakLBO0 TSxcQOUuQCD0TnAzRMQip9 Nbhtc2RuMqlk5ujb94BBR6 k5DfwEkqMRV1TSA4WaVqFn 1ocFAeQHRqDR1fKmDwsCCm NIIicp40vWwoMLxnEYC2CV VejoPih1Usr5ioKrCuugHb W0kvP8TuVHPoKLHrTLIvCm CudlAmg1Fjp2QphFUrwJw3 l9azPVBnOFMpuBsfw3piNO D9ZJStgSMsJ7zpkP4tAYLc AE4pldhvn8maBAvdCUdiQQ ClsFN9yuJ3ATMknVInS4Gv eQ8hMKYbHKgkJLTkyqk9Xg UlGp4txEJbzBrvZZxkYgen YWdlXHBnbmNvbnRccGduZG VjXHBsYWluXHBsYWluXGYw XGZzMjRccWxcbGFuZzEwMz NcaGljaFxmMVxkYmNoXGYx KIeyR3anCqIxYxIqLrn7ZO HuhBKvSQEkBdu2DUJqzYKt XFDQsVhqnL0fFOQmkAepwW 7jfVT3OTPvltCvhZOPqZ8w YSJRqZ2hSuX7IAYoSiv5HR K1AaHvaYKlfF8= COMMENT (test code = c0grjYYpMYQbjAC5ScYfZS 3353) Aye9qeg2MbjFWfuHPiFVau qKNfnyToxl16tPK1wM64JA 6vJBElVoK1UGDwkgA4Bll3 TOIhHVGtvQJlE191p3bhq4 llkpMxiVJ9qUimWUDnlbff BkG8DFdiCVAmpyxsIVr4WE enMGJsdZG8HSDlhJLkP0Df IURvFX8pzki8YWT7PRaaMJ BxIzB1JKUzyBJiWOQqgSeb HNtkg469QOV6DlCtGPMyej IvkOhmrF5dRzMgSIGMUEV8 hS9rrdEavJ95IMFehKYblC 6xu2JhMFyvPUfpyqRaqLnt u59zATZQuKMaEKKhcsWuxm JvxGhhcHWxT4PmmREjwWQu fQqrKRTkyTq9lPA6LU1gXE N1vUCpY3MyBFBiSVV7szPr MzPaByXvuZ0gnDHuXR2wyQ aoVRQtpxZrj2NzzKOrn4Yk yVGwk3QxWRGxuBVsbJzdir 3eFUTrG0dhs7NeOXH0qgYj ryFhwJkusJfwP6c9uEMqdU 5cwAMsfGF9aO1mYNEbYOGo EKMlIsFwQCAmDPGpYA7xaq 5aA0EcvDb9uT3hGBjjYL51 kL5bIGYttqShIJPqDP4wPF KiItUtWA4svI7olIkjkK0y aGVtaWNhbCBzdGFpbnMgKH UtibMhoc3xYRCxmhJkmG6v zpXHSYX3bXCyNEIqjHRivM OeYWYlCACrgjNzh9kvZLMe pL44XlaoULWgJCOOPBK4WH Dhe1k6nGPsKBAjszCnXBzp Pnw6NUHkw2dvTmAqJTQrwg UbyZ9zBOrhv1MrAS99MQBp IuozhPOpwERfIRGqaIR6iB X9nF5gNHqoJJDvLAHtWNls cylccGFyXHBhciBUaGUgb3 FwlrYllVSgmE0wtX4lttDl llPgsE3psAQsb12svBI6XR 27BUmfrCjnJCJkWS3vbctu a66jEJUJOqQtX1rHFOojNO UgOQZhLTZKjOTdv8NfpVN1 xFPoAUQdggPaMq5tcLWvBi AoSoUiGKHvxEEozK1rrA4l fHSsLoPeskSjRA9lZMCcv3 1ePPEsCYNrEIdiHILna8Fi pN4imIIkuXT8r1M0ZUwnUv sydYFthMBccDQokg47YJF4 VlVoY4nasaVqVn2dJTYoBM WzNFHdM85nbClmvsBjWoEa lB3svT6akWPtrOBpbFOcRZ AoG7guyMRpqV9lwJ0fQA9y SWWVCFOmJQVNZFAsv4QyeE 9ei0aidWJoGRXxEPEgb7Xq MZCxp66pQqyrT0xcWeLrAD 8yYCQabC4ztCTiBFoqWMEo HCXmORYpXFYiKmFIql3wEE KriMD5KVhclElvpNSsQJIy biwnx1UdSYZrJMXrJODkNH IhPEWuG5JlHHFtd1i5sBHi qtOxQUHuYB8qmaadD7fczG RtAOPlelaaNCKgFttxD3rv FmNbjUZwBQIaGQK2UKHzFA S3lA3sWCUpxKu3lOTjoHD0 IGZvciBhZGRpdGlvbmFsIG WtT0pktFYzwRPrpQCxoUIs LlxwYXJccGFyZFxwYXJ9 CPT Code(s) (test code s5yxdWMiQWUxyNP1OpLtZW = 3357) Rfi8kor2ChzOWerWQlBTaj qFOsecUjmo68fEY1bX27SS 1hPCFlHvG8XTIzrmB3Azr4 TXReIFTrvMJxC861p6jsd8 cmbeYdwMU9rXelBRMikjbn LpL3HWiaTNDhcvhsGQl9AP yoWNCajCA0VKCrwORxJ2Hi JJZrZQ3qezj9MQN6VJgvPZ GoEmV4JYMmmGKrIZAhjPdg KIflk062WFX3PbVdKBUbhf UrfYdtfF2cFcTsDKY8EELm C1hgGLA4GWUtUKtnHFmmRI IbSHb7DoFuHYK2ENGvMxvn XHBhcn0= CLINICAL HISTORY (test y4txwNZoRDRliRN3XcVuXZ code = 3356) Zcw9cnv0EeyWGmpMCeVIib hMBpboKovs55nJV5eE21DH 3yJIWrRtX4EFNjojK5Svv0 VDCiCVFicIYtE715v9vvn7 qxpvGeuHX5eGiuSINpwgte MkT1TLntGPXdheyzUQb9HN xdDIZrdIX2MJOyeXBvC0Cc MPHyJA9rajo2LMK7GAzoGH MlMeW3NJPjpNVzYWKtqHzo RYtmb600WZG9IkShNYBfjo OgbDvlcT2bFcDaDLT1XW99 LATaYV0oDRRgVO3unTQgw0 m7lTYfUHQ8ZVRlujttzAAk EERdBYnvBHT0xD2gNbzaGL J9 GROSS DESCRIPTION (test p2bydBMuNYQcbMWCIIAvF8 code = [id number]) uwjcCgHCYriUMxE4Xpjxhk GYonTV7nUM9zvAhdhMOamW TuAG2VEUOdFuBxATPkzTFv ysGdOxZaTNUbkOHsyQN2DV YrZF8luzpmEWmsAHqyPTWt ytK2RUQysYCrE7ZvYLRrQA 2kjtwiDFF5ZVpoiZ5xpzCZ XemqLf7ufKXkaYvrTqMgTv NoYXJzZXQwXGZuaWwgQXJp AAq1jR0OIakmRSI3TIFUFm vjXGOyVD4Zf3yqZNXulZTg RQK6VGgzwZAvAXJcQVRbZT s7BRDuPLqziMCcAL0hwXea PegnzFbdy5HscQEtHSyxTZ VxOAKvHBwsBMYtLF4FZsYc XIm8MaK7LrCwVKn3QJf7MV 8POfYsGSHsEsHbPik1SWTr RDf5FQltIU6LSKH3ZDSkTg W0ZfR8CFNmSGNePIHyWiKl XGYgQXJpYWwgXFxmbCBcXG 6ctGvdkARapjQQKpWDeY7a cy9aaKEmZR5DAWUqxVEMOG B3BO7cZJEUYhijuWYsTADg rRurVWuxgH2eRE6HBWc9ez NoXGZzMjAgVGhlIHNwZWNp nKCjVHLdV7MktaPjUTFbKR NsRJDrjbEpwfCpQU8aTITt eQo7ZAVvm49ixVa6SRHor7 2sjCMcMGknPIJ3vSAuZQCv POTyNFZyZB53cyPjslSqvk 1hdGlvbiBhbmQgIkxFRlQg OVBAOVRWOBqoBNHOG7SwOP BqFAHtNVLnCMafQP62dpPi IuP8XG1tlZnhmxM9jYLxfP JkmPWob0PbcF3mDPYgYKR4 GDMqNyD5IJZtTiSjjNXzle BdQ4ydBGploNCqCO9iFBYs zJMmUTBdtbMnvBCijQD1HO TtGU06nUHqlCftBb4lRLZw w6eyhrXdOYV0cF7lFNozGK Sqo3QsyHXkERDZEKKvIZYb KHDeGE4rmX3gvlfbrKjnr8 NfJYfpBCE7Ag5xwMVgXLVd bnRpcmVseSBpbiBjYXNzZX M3AXCXVv6jFPkikUufhM9h UYDsZ14vs0ZQn1ToWRIwPQ onw9uibWzvn4VajXHtAZkr OGBmkSWqMVtnnH9zWjXnv2 lmhYx5UPjwqhI9QXZklx4W PoycCjyemJlkj0WhuIWuSK hwKQFeBLXnFPomAEJmTP3F CfOwXGn5DzA9SuAdQXq7TS m1TM5AJmMbCLFjFnAoEwc6 IMWzBKj2GHvrSY1GXZQ4NU asVLl5KPX4GLLzDBEyVBIv MiBcXGYgQXJpYWwgXFxmbC ZjOI1ljMxkljA2KNWeITlw PAFxXIB3dN7wQhroXLPfDD meGWPcL19tv1BKq6WaXJ2O KTl7xfCevfkbcQ6mBTVeec OdNAbxdOTkO4loBsHmZHOA ZWNlaXZlZCBmcmVzaCBsYW JlbGVkIHdpdGggdGhlIHBh lNbuhwVkA6H6ysOkFE8uWL UnXMVxS0WqFSHxT95mHLTp dK1xKYIzQX3zCMG3zZ0bir EjfQCpUBL9WQqeXe56YDcw ZOXqlZJfJ0pzQYaagWHbo8 WukUKloThytLCsW9XxkK26 xHy0EVnxr3dmS0k7uGnhGk numSM5mIYudTHwAmTpA62v bnRzLiAgVGhlIHNwZWNpbW YeLYfsYMTsqtkrdMn3MYWc F7Wef43nPBA8ivHjIJFxJE eoj48twVlmLYBoFUFph5Kk kPZno9GbyOQpFC9sBWWpvP Zsa5OdiSB4fBSiJYIpW9Or o28oSLUsUXSzySLzcCI3JJ BunF9fWzIzVdAdRhfkGDZm MNvukOOnNI1EW7wefUNoEY VCnbL5rkzaURuHJCYLWDTq HIYPOPbtkR6IUMZhZHitAB MbjUTLGPU5MO8vWSevqZBp cymdLHKkQ8NcB2BqssHvzU HhXMSfilOxd2haMUH0KLAq fJHdnGXlAdGiRoxdIWO0UU mwi8imYWY0MJIvuCKhoLDl SAolPvLhBgawVOSdM5QuZ0 KksrY2LFk1 INTRAOPERATIVE q6zvuDVqAZXfnAX1OdJcKE CONSULTATION (test code Hqq8gnj5AygOSfhZMqINny = [id number]) yYLmzsTzxm69tYH9cY45EH 3gUXLoNiI8CRJepoR1Pdv4 UTSqWJZjjRZlH946y5bvk6 pnpbNttDE5aTqpUGBceriy AgS6NWkdXHKijltkXFf4OJ viSTHvwLD1LDZgmACvE5Rs JPReIR4vnic8JRY9JPagYF KnBkX8MIVplAVfYMDgjJpy KPfuq529WGH2GuSdYNKmrs I6BTyjPCDoV2TrX3YuZZue HXG1GFOzYRBeIMEtTQRiCE GbCVjbtkO0f9ipRWQtrCSe EVK9XDynyRGqCWEgBPZsRW viAvUYObUxDqU7QPK8TGde PcM8AKb6RWZGHvXgHkHtOm Z6KgH7DJTpQRj3QRw0LVwY JqQ7Ffn1CoZ7KwNbBCLqBS KfYIl5NBYwWFwqoQUbSJSx ZQKbPIkfSFpdN01ibMvlaR 3lClKeTBSWDiSIwS0pxn2p cGFyXGZzMjAgRlNBLiBCUk FJTiwgTEVGVCBQQVJJRVRB BTKRMO9STvmoZxmSATNLMf loNYUwlDFkHH5rTHJzeC0i bK3jVUzyEWCtbBQtLHVqjS 9rpZZnZLS6HSFaXpLDyNY4 unFLek6eVbZxEY3tJTNjTE QcJdFdRPPxRCB4RrTjoPoe BAVxR2UgE4MfbxU3g0eplV lkk1VnvWQmRR0kaFSijI== MICROSCOPIC DESCRIPTION q2kfeBQyWSRqtUP8IwQyLH (test code = 3371) Kjr0cnr4VwiECnfSDtALtp bPUjpzZbrv13eBL4gH17NS 8bVOIuXlX4QKNrpqO0Ahp5 APZvDBKqdOLgC930z0ybq0 nmabYogBW8lGzoBMLworol TlW4GWvuNDEjnljhQJf8DL uaVCHywXY5KQLynADaM6Sz IOYwUO0gujy1XVX9TQhoQL BiCgU6ARNopIYuOMZuaCeh UTybl501CHU7QhUmJZTfil GorPvmjT0lCeAsHHNVGALv n1HzSUKalCHfwV== SPECIAL STUDIES (test c2zpwJStYTChn7whLVTmpG code = 3376) FuZzEwMzNcZnRuYmpcdWMx NTrfynKuBIpzg3JkA3EsPc AwMFxhbnNpXGRlZmxhbmcx YENnFHS5gpHmZMDmXUzvZU ZjMZixBz4ssFFzgXiwJxYx BZMuk9fzovVBedlyaUw5d5 tdZPDbYdR5hDJkXLavE9po pgVwlMGtC0UcxPJuqYq1h1 ykLuOrLhG8kCGfQAhuV6zh twLsaQYzIPAdQOm7tH93YC KruP3gwDCbYJoywxCrRvA0 ZIjxCIKjBdE8WEGctULdMS AmF1vsCUGzQPiiSYSyTRsf pEGmZDO1gZdcs2W4hCOhnE UspVejTvAbGsTwIbLEb1Wn IYj4rFqiK6TuIBDzMsE1fW QgUGFyYWdyYXBoIEZvbnQ7 vBjlmdUzp76xnSYcOFKlYG LvPoTglBcbELOxMAEBv9Hd tPbzEHF2jXs6bBreYbvmOI B9Lop9SI1ovd03orl6xUwc SVRzllorNjA8WMzbXWHwmq xyMCm3UWqsYRCytWO0GJUs iINwR6DjFXSqMF3zuhb5PI W3NHhnMDQqIoF5IKXhuCKf YFSbgInyMCber444AHT7Qc UwCM9uT0Gkw5R8tI6gtQJs CMBdoPHrUzSzAKGuel8uyJ BjFPaja8RcSOS8eyI8wWTd cACgUTMkJU54Kqlww7AlSu vng5HrF43ulSK8XRkdl3in NX1dEtY0uhKrERrec5ycbT 8uEiA6ZOsvTI2vXZ8qHZDu kU5dxpsfKIFiZzBkpymaOV DmcJhbhbHoEx0slXdnTIA2 MJdsL1itcT9yJlR3SYmvQ2 namN5nPEu6XCbqrHJ2WDNq nN0aCR9uljwjb8kyZFchTL ioDSWxrbI8wzA6AZGsvQOm V9NjlY9cXCLfVL3jwxyaw9 ttLXU5RTdxUPAcLSH6HnIq VLHzb7Lxbli8QgYll8JrlU PcHNtoD25zf610JTKvonWb K2wixPLuwbunpGCdwebhTW zwxsR4KUJaPMPgWMafWKTm XGZzMjJcbGFuZzEwMzNcaG ljaFxmMVxkYmNoXGYxXGxv S0zlPeNpI9QpKGWdZxJpSQ vjIHdnqBKqfAXciJX8dF9j CZ8qDOGiiORkG2NxWCHbxt SawZFwKVM1vEBibXTcSD2s NHdegBRpj0bhx2SzY8jtbV ssrJC9FY6pBBIyWYUsHQoj h2JpoC9gJwtuyTFscmqxFN xmczIyXGxhbmcxMDMzXGhp O3nmFpCpVBFmiAwrWWofm2 NoXGYxXGNmMlxmczIyXGx0 cmNoXHBhclxwYXJccGxhaW 2jUyFrSzGkDrjyRD7oFAOp C7regPWbZOXcZJZxX1shVd BluV9nsTzlWWygMaNkXnVm PnUNt021iq1eBZZerWSgbj HXfJGxrS8iVJjmESuhPBdo jWFoCEzjo6akRZIwd3i8zY TlAXWcnkRya7nrDXaisrRz QBBveQTkjSZmKBVcp70vBY xksFenyKytZGQgg5WybSro v0OjDaLbGBkss5TvT61euA JvbCBzbGlkZXMgcnVuIGFs h83ja4gzXIUgBgS4sDMrtB T7xUAwnSXhp8SzjAvtXPPy y8wlBTFkcx6snmixlWFwd6 SbrG4ckyzsEKzleHZzvmZa APTcg0c7lRCkXBFnTKQyHP pinNe8QQXlf085yx5ifuP1 lLThRNI7NMzhPPFsPVWghj UgZXZhbHVhdGVkXHBsYWlu XGYxXGZzMjJcbGFuZzEwMz NcaGljaFxmMVxkYmNoXGYx YWuxL8enXwMrP1ToYYTtYm ZieVYxG0zpkXJrHQVyLDwg XGYxXGZzMjJcbGFuZzEwMz NcaGljaFxmMVxkYmNoXGYx MCbeH1caAeJvK9IfZFTwZc IgIFxwbGFpblxmMVxmczIy IYkiniyxPZZeFQtuP9irVp MzLFGgwMpkSIsoo6NeXQHm UOKwMwmonjQvCWh2lkUtWL BhclxwbGFpblxmMVxmczIy NJqgpawlHBVvUHfxY2naFj PkCKDhtWiiFKyrv5NkMSAt XGNmMlxmczIyIEltbXVub2 byr3LzY6dpsPltmHU9MASj T3wvjBAaoHF0RQL8jX7iXN kpheLoHGGmt6XgXHWvMOKe MeJ6aO8eHLT3TjLDqLprVE BsYWluXGYxXGZzMjJcbGFu ZzEwMzNcaGljaFxmMVxkYm KeRZKdQXabE5sxLsQqA6Gc YIMkJkIqwBygVQtlTZv5Sr xwbGFpblxmMVxmczIyXGxh uwbsXWNjIOknJ0mcVtHdNI ZhwDagIOurj2VbBPIkCKGg MlxmczIyIHMgTWVkaWNhbC AWWT52AWHoOHJagEgduC6x gKTCYLEehzW2p8Z2XIhoMG OdESp1ONbmuhWcDRZqdO8o LURdDG2qPDe2rmIaHJRre6 JrDR0rXNCabXIuZEI5BCKe c7SxF3Gtd7XuWTZfXTRmne 4kcyXwWqLQbKIhUVAzeo43 JZClGT8eH1xmBEJhNHKlmp FntCDbr8DbEANrgID9jOKh IC3MPwCKu39eALMvMVFXjo DwUGTmrHvfnKF7fzU9qL4d LiBUaGUgRkRBIGhhcyBkZX Aaim0dibGxEJFnARUtj1Cy iUQqkBDmnjYhL4Hxt0BsFH Ugyb22HHospVAszd41FQ6l E8Jvy0NpbK0yGLihKFLbe0 BmaDTlyLWqVHTbv3AvZ0tc avdcJGbvzLOnaV2cRWZzTE r4KVBvh8LmWGSni9ZbNvKz fsHgXOOkLQYtEZYayF01BY E1tUdomTxsqlYlPC4lHLXz fmDwEHIlJDUihW7qRRfbtc FgNVYjnjF1v8N5HUetIZRq khCtWiotEPT2uaKsutI9xB UdA0sibbzfBKhvOQRmx3Bp uY0tmGKZxXAjr8NndFWeyQ UZjKFxHH4udzPpZU2cSCY0 ODggKENMSUEtODgpIGFzIH E6ZSywJhgkVGV0jfJlYMIn n8PpPHyrO4fqI66mzVykbA y5bFVuvIrebEBcbUCqWCJa bnF6k1O3EAPxb0MtjjltIV BsYWluXGYyXGZzMjJcbGFu ZzEwMzNcaGljaFxmMlxkYm CsNSZySLegA1huPaMfPeRm UfduCFV8gE== Gross assessment was [facility] performed at ([facility], = 0036) Department of Pathology, [address] [place] [address], [place] [address], Technical component was [facility] performed at ([facility], = 5091) Department of Pathology, [address] [place] [id number], Professional component [facility]'s was performed at ([facility], code = 2779) Department of Pathology, [address] [place] [id number], [facility] [id number] 12:54:33 Test Item Value Reference Range Interpretation Comments Case Report (test code Surgical Pathology = 104) Report Case: [id number] Authorizing Provider: Khalif Green MD Collected: 06/22/2022 10:58 AM Ordering Location: [facility] Received: 06/22/2022 11:03 AM SERVICES Pathologist: Fatimah Marino MD Specimens: A) - Tumor, left parietal tumor B) - Tumor, left parietal tumor ADDENDUM (test code = [id number] 3381) Qux3jjj8LeoOEffNIdDPbk zENmxfRvjf74lEL7kE24VB 0eRSGbQlR6IFWyrxD8Syn5 BUYfSLEykBVbQ341f4pki5 smirEdtLH9fReyOEDfcmzi TpX6YUqrJHDbbaajQTe2KH ctDSXfaAK6RBVjsTBaQ7Vy OGErKJ7trwi7NJS5WZjdER YqJqW1UEWzvVUcYBHqtRql WBsst319ISG4VzAdXJHfoj TgnJfhjW7mWgLaXWRMGkId UK4sFNgJQrQdcNZjuzLoa3 cgsvErczFrM3lqQIPpu4Uo t6CzYqUnL7XwRX2gT2LvoR Ggyp3hyZVbwK== DIAGNOSIS (test code = s2rmaAZmGNYdr3trWQLgwJ 3220) FuZzEwMzNcZnRuYmpcdWMx IHtccnRmMVxlcGljOTYwMl vabfShTZYwqCRvL2Drqdjb XFgeVG7sSM1syZcqkJUsdA MaDIHfZgPbz1tgg406mGCi n3ofKKUZpxxraBy7wTaxQ3 7bb2U4ZmviD64qaWSeJIT3 SEKlQIAnnJPwPXFuFEQ6XY YdqUKkI4jaFVUqXN2syldx ZFdcUOvqVQQddUP5GXFpbK RpY2JiWQAlIPqqRTNfjhg0 TtWpJh6azFMetPorPIvqLX XvWGSsJJsvXDRyArZeOF6b WDClQXdeDIRyQHO3JZNlqs xooYNcORV6iQ1zYYQwzM4p p6a8STQpbom2FVKnWZIQTN 6patnoh11dZEYJHrAaF7jS IMngRKLnYMO8BZOcWJKra7 0aNH91XPJdxbbpTGBmKn4w DOUpPYojRICaJAA9QQHxeg xakWYiOUX8lU9qLMCefHVi o2wpxthxjYAsEXOxBrHqYS 2qfrldK5wyyTUtZZHRNtNA IN7mX9GtFVEmEQpbf0TaCB LfaY0aizKpiWQwNXOrAfIl MWSvzvQzgb0zNG0sP4MnlD b6yU4zNTsyHF67vF3tRXir JOPccZQpRJ0oRWKSEGOcIA SNZYSiv2OaaE4qEFIzmsOn bmdccGFyXHBhcmRccGFyfX yxpvSdGFvyw6DvNDyaEPWf WQ0whSxgKNCxUI5sYKGlH8 kbeB1qymz4LfJvFNBiJzH4 YENptbV8Jlr8NUZnELxyf9 xug7SkFZBtPNg7eLikNnTw YIApa7ltebLxFzPqBRAbXZ GyYLXysROwA717m7fqd6ju ovJmgNV6FGEsTYV3KVdmsc PukoM1HGnkoIVdPqR0HXlu psJjAGraypXnyaDpOlk6YQ IhE509AKU2pUndn3mwYXV0 UZNsQLWeWkNaCw3xyRKxM1 73JYZqGXAFTYXgnDr4YFVs xxIupyPjgZFNd598U320t7 dtTHWdgbTkhPjUkizog2lb I418EJTepLPgktPqTgKeGK PhfNLrcSK8PDZiLC2cddtp SQdnGNxzIBAcczV0MSVzqY RxJ1KgVKAeEE1tzxarYYL0 UNiuCZMwUGM1WyItGCWbl6 Chyud5ZmDzae4pws90DXR9 c5EvvTdyTUD4GLR0PkPmHv 6dzYHhYJSjGQ4tMgUrxZUf MRRfaz13tTsdGYjyMFI7IZ KqxkQsc2Ott6uhBmPzzlEj H3jtP9OpEVFyRHJdMRZdEj KkmzCdx3Whm6FevDIpjEv1 c2zsECXhTITgrSjwd9zzOL V9NWSexMMuJ5rofF4vAEFr WT3zngvdl2ocSFqeDNjgQL MblRF9rwQ4ACWwgCPgX4Ef rH0sQXWnVIoaHRZrhjh6Tv WgTa9tzGBifZutGPomJnuh YWdlXHBnbmNvbnRccGduZG VjXHBsYWluXHBsYWluXGYw XGZzMjRccWxcbGFuZzEwMz NcaGljaFxmMVxkYmNoXGYx UGfuM1weCyTmFsOaTbg4QE ZrwQNpOWTlAsq9NUMhpFMs QKAKoGdxaT1nYHBckPaaeC 2uaYZ0GJSxkoQkaRBZkF7x ZEVTcE2dKbG9RVKzTxp7LI X1FuZddTRoiF9= COMMENT (test code = m0szaAHjHFTkdWA4HoMhLJ 1919) Ogx2yrk9FwcLKgiFTwUUif nOFvkwPdqf70iDQ0lL39MX 2aMPPnPkQ6NSLvviJ8Gkm3 XYJnEJJkaHUaI780r2cug1 ykatMlhFQ5dFchMMKieazk NzV8EFffZJMuxdfxYIh3YE syFSRsrGT1XAVtfWLbO9Xm BTVwDL0cjyh4RBW9NTreTJ ZnKtL8OOShmTIlDVWxmAbk GOwoq362YXB4JzWfBFYilq GliKdlnR1qOoIlTKHRNEF9 rT4gtsZpfK19WCKiiEKonI 6at3JvKRywJJynrnRdgSpw n97dYFEIxPFzUFDxjoYdwx RbkCihlQGlI1TrzUHnkGMn iKccETXtzLl8nXB3UI7xTP T1aOJfJ0CcOPAdXZV3juJo IlRrZmIzvC7xcNVhLW3gqL gkDMXxltQeu3JffLKcj9Iz dWQxt0YeOYPllCBiiUdvzr 7xFAVnZ7zig0ZoGRS2jdWy pjMlqFoheAnjB2n9pBVfwO 8tiLPneLE6bP6wAQTtGRJb OXTyOhNpHYAmPXJwSG4mdm 9fV2IotBo4iI2jXHqaLJ45 mE4bIMEpfkEcYOJnRM8wZH FbCzGnVC8bzY9ooQqwpL7j aGVtaWNhbCBzdGFpbnMgKH LdijBggq5vGXNobxHrxP3v myVNTCI2vQTvWAFnzWIuyK UcVEMeNMShibEbe8ikDJLl wL81JwcoUVPvFTLNJMX9ZZ Boz8t5qLYkKZDntkNbNOra Ndh6IDHyi7qmKwCeZBGxih CuxR2fDYwis0HnLM92XNMx QydohLBtuSFtFHZlgBP5wO R7pN1fCXkdKGUtPNTuZCbf cylccGFyXHBhciBUaGUgb3 SwlhArfJBlwH5fcQ8dcmDr zdNvzX4qoHOxi57clIJ6IY 50LXowaQssHXVaRQ6fiqwl g14xFEGJCjUxK9pHPPtdVL RpKJWsXFGAgJQsu1UfqWL8 hDRtBAAvcsLaPr6enCTfFq UwUcOeMMNvgWMvyD2wnG2u pNQoCfCkajAaTF1cPEVcl7 6wLPKnSHIcSDefAKLje1Zq qM7ieXYckDI8i4Z0GCulQp glkCHldITxnJDiem91MQD0 AoJpO3oeedQlAc2dXOLyYD QeMVGeL06weWphagUeOcOi cZ0veV4bjUDqqEMfeYSlOR OkD8kehZLwuU0uiL4nDM5n RPBFVDXaUIXGILYoh6VneC 6aa0xljTTzMJEsEUCki0Pb VKCpz83jOavkT2khWrTiKR 4eEXRanQ0urWTvLLfoNQPm EZFnQEErHHRsOoPUim6nPQ WfcMC7GWoiiKamaASkVPTy gkrpm4MpMILpTPIzWGZuEG TqXKBeX8ApFOXru9m8yCGr tmVeMGVoLP5sckawN6ujmL HgDRReopkvLOErYuxhE0my YuCyrIVxCNYpHML2YHTnRK T7vP7jOMXcfUf2uLOmhGX0 IGZvciBhZGRpdGlvbmFsIG DzJ9tmzKVyrWFozRCrtQFy LlxwYXJccGFyZFxwYXJ9 CPT Code(s) (test code h8rnfEWpBQJfxBH6LdOiEN = 3357) Hou0qtc4QycVWabOTtFFjo wKYfalWyqp82iQS4dM05UG 5kBJHiAxT2DTCxmaQ8Jod7 ACTpEBKtwBXiX155u3ela2 vaqeLrtTV0sCqsDMIzjkrr DtU1DMgoXGKwayovOIa6NG gsFFYfuEM5TWMrmRJwD7Fv SDEzPI1dbgk4SHY3LEqaZO WbWpB9NCOptALrFBCgkQtm KNvxc244ZGB5EjCqLWQvkl LefAvobP8aLkJoEJN5MULb G5oiELQ5TTFiZHzsIVxwDJ SxVKz2AkPoDUO2AZQvZvum XHBhcn0= CLINICAL HISTORY (test p4scaOGaUASzhTL0DqLhNR code = 3356) Ntr5lll0FxmUEmaRToGIpi jNBsazYegl36vKU4sZ89TP 8yVBJjJyS1MBRfryX1Txc0 RAEkWVQdeACdQ220u9aoy8 whovVvgCB7aLrxHZFqpjvx QtT7VCgnUMQidkhqAJq5FJ rnQCAgtVS6TFYttPXiG8Os TGXvSK2fzeg7UQQ6KIovBZ JnXiG8BVKnrMPmZKKdbQjd GBffr333BST0GjRnQKJoci SgoRfqzN2eJmOpGTN6EG24 PFMmPH2aCGBfTC5tyGYcj1 f9cVMiBSO7ZSXluhmdvBUv NYZlQYqeSRE7bJ2cWfogDK J9 GROSS DESCRIPTION (test b6dyfPUkSCMznDNBKJBdA9 code = [id number]) uuxtSrVDYosBZvD4Fupmro ZDagDV4eTE8eiXqwjMOqfQ ArWT6TOTZfAfUfDOMsvMNp ecOpDgMnZSGrxQGnfIX9MP BbQY1yplxrEMdxWIdrKJHq ofT8YWQvaUPdJ3RrUUOsWU 0mruqeQWM0MRrxaI3iumYH AnczNc0pxOIhdXqmRxZhOz NoYXJzZXQwXGZuaWwgQXJp NMt3sS5GXajmEZZ4UODHRk dvFQCsJO8Fq8vyLOLngQHk CSW6HJnltVXkPTNoIVKaNJ t6YCIzLDhhfGGiII6znUib LivjkBrwv1UrqKQcJMvyWI FgFVPfIIofICCbEG4USlYd VGw5KwM7FtTuRCf7IJk4ER 0XCwHcOUPgVlTvRyq4VAMs JEx4UZuxJT6QIWQ0RWReQf V4GvZ5TLSyFLTeOQBiCdPh XGYgQXJpYWwgXFxmbCBcXG 3dgQvxtCXbjkYKLzASfD5b qs0mjXJmAC7WAGKnnMNUVL M8BI2rQGJHNuerjOOnCOPu uCvqGFnhuD6jAT7LOBy2qh NoXGZzMjAgVGhlIHNwZWNp vHGxWFEtR6JhbmEtHBDzRM NmJOIpjyExzvFzOL1kQLIi gOh6WRBpi59voZd9MQEgw5 9zoNMqIBdlYHY0eTLeFVWo XMVlJWGnWM13itZgnpJxvl 1hdGlvbiBhbmQgIkxFRlQg FHKWZDCNVGwgPTPGR5VdGF SiDQVaDWWxNLelJE95qyGr TmA0IL9sfOexzkM9pODyjG DhcRDpj8RcuP1tCZFpMCC1 VFFlChX7IRSqEtDxzCFlcr SiB6onLHtplMIlAH2xFWFj iLXoRVXbywBiwINsrAO3FD YqAV15hCMquBexKh5dQPMo c7aqotFxAIQ1mM0bJVogSA Eup1QawCMmCJPVGQIiWWBn RBSjDV3nrM7aluqdzUnxl7 YdPAtvZNJ6Ck4zrWJqBDMa bnRpcmVseSBpbiBjYXNzZX W7NNYUCm9hMUyhtIwemH5w QTGcD79xw4MUd5ZlNURiFG abx1xukNdvf3LqaVNgJSrs UCUiyLOzUFyiiK5qMmYld0 fjzRx2NTurcxQ1SEXvxh1R LatjAsqtlKfkh4HsxMUaWN fgDMWdNFRzRCspECPjQM0I ZmUeCSe0AqB8BwDnTDz9MK z8HU8WBdGjTJInXrPdAri5 PCYsAIc0DOhgQJ8AADG1QE fpQCp3VCJ9OVJbPINjTAId MiBcXGYgQXJpYWwgXFxmbC HbHX0ltLouxfQ9SIHoIGes HRZfUSI8mI5hRwyhWPHaPE tpDMMgT49ju8RCd6OiRV8N RPy1skRiqrqtaQ1aSRGzmd DuQGruyHXoT9wdDdTmMPPG ZWNlaXZlZCBmcmVzaCBsYW JlbGVkIHdpdGggdGhlIHBh zYurauYvV3Z1fePeLX9uUG GgDPIgN6HcGEXbY11xIOEe nC3bAPVoNE1bHFY4yR7yoz JebPFjJOP7BTbnEg98AAse IRQmbSAaM4hkMYaisJNxa1 LvqOWkiTjghSAbH2EqpX15 dRm1UFled0hnG5o6qTazJd onmLN6lCXgaWVbDoJiQ01v bnRzLiAgVGhlIHNwZWNpbW IsLVdiEGJfoktndQn3DDVh S3Rqt18aJHS8twWdIQXjYI gdk10zhYzdHYOeROQbs0Fi pHMzp2EzxBLmNX1pAKAbgC Dkx2CckWV2cCDyFBNqC2Va v92rONMeXHSijHOuvBA8AC TdjK1vLyZlMpJaQvgqELQe PPzumBCeBF4CG2vhtYZeKX VItmN2bqszDKjPOYARNPAz JIEQPQkwoA7IUNQeYUezEL YsfCZEWVG7KJ9bYQtikXBy yudpMLXaG9NgQ9CojfFerM AxBWYbwhOyt9atFBV8NTEt rUFpgHRqVuFxVlwaZLT5FC oaf9qyEFJ4OCWlzTTkpFZd VWjwYrAtYnxhKJKyK8JaW4 KehsB0ENe0 INTRAOPERATIVE u2hjxGNqAYQdqRI3FkLuGY CONSULTATION (test code Nul8jkq0HoiMFduMJwZQrq = [id number]) wNAqvhUhmq24uWK0hP38YN 9mRNNvTtH1XEQajmT9Wbi1 SBBaOYXjhIXdT403d2lhu7 qbnoPxfVW8rAbeUWDpktiq GmH5HDmnHCVqwgxvCTy5WV ydCGBtvPX6EWVoyTHkA2Yj HDWyPN2ciwo1PJX7LPnnZQ BfTfQ9ZHCgtQNlFAYxqEwk WNsoj885SCP3AfWdWAUrez P6YVgcCWDoU7HkQ8RjFDyn PFL8BDSgBXUjNIYhKLNaBZ JfWVtioiG5y0isLQJwvPGg PFD5UZjspZUwUJPeLSSfEZ bvMhWNMwPuSfF3RNO0GGpe CkV6FAc1XFJUSsEtIrMcBm Q0XqW4EQLcNCf2JNu5NPtQ EhL4Ocy1PwP2AiUtNLFiXP RoWDh9YBPxGTmkbZMnOIMm KTXbYIegTFeaN50zyWphoT 4eOnZaDCKWZlWQwG4rkd0o cGFyXGZzMjAgRlNBLiBCUk FJTiwgTEVGVCBQQVJJRVRB XCKBKW2HEctiZjnAFFWBZq kzVMYuxHBvDS8jUFAflY9v hI0qANueBMDeiMOnRXJpnB 2vrUUuTFA4ZWVbQsEOcUJ9 tcVCoa1iAlSeDE5wWVTxIY ZuHaFbQDAxXHF9XcByhSrs DRIrW2OrH8SxtvD9u1jqdI bwh9VqtXLdDZ3zuHDsrG== MICROSCOPIC DESCRIPTION r3ytdMQgGVVavEX5NhNdUY (test code = 3371) Kxj6ipj7YdeOEbwIZaYOkl wICyvpUfuf02fRG7hW87TC 2bABIlMdJ2AJFvmsU9Bzq5 FHHyNVDltCMzI448a6zbu9 prsrDdsMI9yWglZMCxbynr UkX6YWtdCVHcmalhEYs5RP ceDGYhgWH1KVSzfBWwP5Ub HSEcTN8ctmm6YXJ1TVvgJW FdQeC0KVEbmVDePHByvVxh TCwcp555REK6WhCcOBMqob UgmAfsaO0gSxKcTBBQMBDn i5YuBSDhoIJmfR== SPECIAL STUDIES (test w9hrhQGbPKHpy8wsXVUgfS code = 3376) FuZzEwMzNcZnRuYmpcdWMx WCftngUiAJvdj4OjJ5ZhYp AwMFxhbnNpXGRlZmxhbmcx FTZjZTW6pfLbKUKdXWzjCO EeHEgaQk1tvEIunZwnWrKd XQGdx7pyfzPFygvcqGc8q2 kvQMFmOlD5fLJwWRyeN1dq anVkxPOpY7OwuXDuvYx9g5 ndQwTvUvG1fYRvAYvvC2od coHiiEEtGMUiHZq4pJ93OR GjjA0ksOTyLUvztqQaXwC8 TMovPYQlMqD7ELNqcWWqAD SmK4ahOGRoQTulZACjZFtm yJRdVBA1yOrmx5M1eCGsuQ FxxBhjIqNoPxThBzWTk0Vq VXq6fMzcD1TuOHFuArR2fC QgUGFyYWdyYXBoIEZvbnQ7 oDvjftBrl97krDCcKGOfWD VvMsUupWrxVLIxIWIKr3Jt iEuxODL8rCi5kFbyNymnHN C3Zol7XA5hyn34ycj8yHhj LTKdxycgFdS0YInfOEEapz gjVMn8UQkwWKQisMK6UWWv dGHyU3KvEGAuEE3qtpj3CM V0NFptPORhNwE3RQUllRId HKXwsKrbYQrhp669RNK8Wi MqXQ4mR3Apt8U5pS5xnHOb MSXzmCJpDqUmBPEkaq5nvX XnVEnia1HhZIQ3moW5lTIj wCSfTJLaXW95Kwfyn9KjDp jpk0LcQ91mfMN3DMxut8kn GI3nDzD6tzDoYMqls3zuaD 7fJgZ9PUgpLI2vUB2zTKKk yF5nraczWBCuBhRfyjnnQH ZasOhhxzIvWx4bvKkrHDZ6 PFhbS4kwaL0tPqU8NWedJ1 hvtF8fOUf4UOosdYS0TAMv cI9sZW4fnudop0ulEDayGZ xgATIzlvW9gmP4AGDwpIXh C5RgwN9aDVGnEQ3hpprlz0 zuTOZ7WFsjVYSeRCW7VqOk VMBru3Hxjlg8HlZwj8OpwR DdXJmgN95yd553LZPpyoHb M3zmdOIlariyoVBducsxQJ vwxpE8GXMlPKDeYOqwWHLh XGZzMjJcbGFuZzEwMzNcaG ljaFxmMVxkYmNoXGYxXGxv C9ynPlZhB8JgMDVbZlToHT cqNZiqkLIqxIVmtKS7xX7i QB1mNRQsbROhI8GpMNUscw IdrIVpIQO6wHNppXPyUE0o QEiajRRow6bam5QkM8ozqD jerED1IQ7xDSXtPMMtMJnh g8WceA0uUifffPEqoigeKN xmczIyXGxhbmcxMDMzXGhp C4qhRbOpCPOepVvnCZqbc4 NoXGYxXGNmMlxmczIyXGx0 cmNoXHBhclxwYXJccGxhaW 2pHiBbZeYfFotlXX5zPEMn Q9pniDRlQWUwXJQdE2ftFp SjjQ6axZlgBPxaGiOoDmIv RbSHq968il1sVHUitICunw IPbVLliL9cODvxTGgmFOom wZYnBRakq9vbZPZhu9b2eY BqERPnoiOli7vnDWgfacIm AIFdfIHotWTkRLIam07fLY wkqFolzSbmOODmw9TplMqw f6MxSgLwZIzsr8WyB25lmR JvbCBzbGlkZXMgcnVuIGFs p34cm6iuTXMzHzU4uKOfqV R8tDXptVIri4TqsHpfSDDs q8jrPNJpph5ydhqevEEvf0 WxpI4gljtcBIlmbTSvjwBn HGGvw3b8tYFhHYToADWyVM ssdEx9LTDwz610nc5edjK0 yQWdUBY4DYndQZUySIZgkz UgZXZhbHVhdGVkXHBsYWlu XGYxXGZzMjJcbGFuZzEwMz NcaGljaFxmMVxkYmNoXGYx VYzgW9lyBqJuU0FiSGSyAt ZbrMRxN6naxTSbGGAiSKqg XGYxXGZzMjJcbGFuZzEwMz NcaGljaFxmMVxkYmNoXGYx BBekJ4emJpWcP0OqYTSwWc IgIFxwbGFpblxmMVxmczIy BEatokiuABHgMHtfI5cxXz AyRWLlgKcdFXxax1SrKYLp UITyFfambyStIOp8wwSuRQ BhclxwbGFpblxmMVxmczIy DTkewbbzXJUxOHjwF9oiVo EtZQTxyLvnWPjjt9RtYHWd XGNmMlxmczIyIEltbXVub2 ium4TmD8earRelmLL9AYRk S4muhZPcvUD7GOU5xO6zBX umcgIcHTPzm7StLLRaCYTu BgI6oK8nLDK3CoRLsDmuVQ BsYWluXGYxXGZzMjJcbGFu ZzEwMzNcaGljaFxmMVxkYm QjBECpAVoiQ4uiQoGwX4As ZPQySkXuhCrhSKcvKPm3Lf xwbGFpblxmMVxmczIyXGxh pskpUCAyLLjdK5mgTcPfAA IhyWbpPYosq4FaIBMzDRFv MlxmczIyIHMgTWVkaWNhbC IQZJ89XZKlJNTbqVwroO3t vVTHSEIsoiP1k5W9KSnxQF HvERm8DAgockErJXEudJ3s PFDlFU0aOLu5yoRtIQLuw6 OuMO1hRWWamFPfQUE1DYYj i4LuN3Fjw6QuEQXpKJVbgs 4sjaBbFwYXaMAmYZMnwa58 XHPsSL9aD2rnGBQiVQPxhr KcgZYxk4KaNOTdrFE3eCAu EF7CUoFSb78tDWLaVGUWzp CkGHLeePagePG3kaO7qJ3y LiBUaGUgRkRBIGhhcyBkZX Sogd2jrxAxYLJsXMUic0Az pLLrfYZvjjVzL7Ehs7HsBB Uowm39KAiheVRkqe70ZU8w E0Gus2YgbF7sUUeyFRGkf2 IbrYZgzNNnAUUyq5GpR3cc doltDNcxpXSjlK2iVZEwJB s9DCCzx9EtMDRgv7IjPnAc iuUeSARjPQEbIVNitY23ZM L8hPzyaLvlnvJoHY9mJMHe ctPvAPIvWGHdhL9dMXmubh NlOWVzboQ5q7M7LSbtFOOs opZjGtvaVCV6guUrykI1qO LmU4mwrgkqKJbaPCNhu5Tc fU3foICJjOTtj9PzzKHphF JPzZJdTU9nagLmYA4xAIF2 ODggKENMSUEtODgpIGFzIH B2ZUtcJygoLAA9uuHzJUUu q3CrCKpbG6axM79kmViftY a7lSZwpWilcESyxQReZYJv xnT3e8V4TFSfy8MvswtkBZ BsYWluXGYyXGZzMjJcbGFu ZzEwMzNcaGljaFxmMlxkYm QzNZSmXAxcJ0amKfIgXjZd GeqxGWI9xD== Gross assessment was [facility] performed at ([facility], = 2777) Department of Pathology, [address] [place] [phone], Technical component was [facility] performed at ([facility], = 2778) Department of Pathology, [address] [place] [phone], Professional component [facility] was performed at ([facility], code = 2779) Department of Pathology, [address] [place] [id number], [facility] [id number] 12:54:33 Test Item Value Reference Range Interpretation Comments Case Report (test code Surgical Pathology = 104) Report Case: [id number] Authorizing Provider: Khalif Green MD Collected: 06/22/2022 10:58 AM Ordering Location: [facility] Received: 06/22/2022 11:03 AM SERVICES Pathologist: Fatimah Marino MD Specimens: A) - Tumor, left parietal tumor B) - Tumor, left parietal tumor ADDENDUM (test code = k0zzmSYiHZGkoGH2LuQhAK 3381) Wll5pps6XvaEKxtNEpCJga eMFutrQymk19iPB9cL13RK 8yRPGcDxI3CTYhhkS6Apt1 PSAyAVIhnXZcO351a9ikx8 sedbYtvQD5xJfvBRNgovgy ZqD1FUmsTKDvjrapETr2QU rvSBIkyIW7QBQfuFVcK5Av DJJgDV3tceo9YOP4FWunUJ HyZvL0RHFtdYIaHSLuuHve CWzcd233KHU7WhTbDAMbwq PqtGporT3dIqUyNOKIHdZq AJ0vPKdDHmGjsFPkcgUdg3 jusiZxadRqR5ttHLLpk8Vi o8OiNgOjJ6ShPD0nU2HveG Romf4vnMTflJ== DIAGNOSIS (test code = t6eosOYjLZUap9dfGVMkgZ 3220) FuZzEwMzNcZnRuYmpcdWMx IHtccnRmMVxlcGljOTYwMl jyvwGuGEOesPFxB2Daihie COajIO7iBI3poUfbbCZuyN JxNDCeRgGia6efb011oKXu q9zuATCQepkcfAm2qGlxX3 3op9S9DgzrJ58vgIHhUZG6 MQNtBHZolSXvRGBvBPQ4TI HzzOEdK0ryMRUfCZ4ldbwf RSfjCKijFTTxgLB1DLIgjV FpA7ZbRTXrHPbhPZGarku0 MwZfMn7hbLZoeThmUYbaBY ZrSCIhJSxqIXWwYfDcNR6c RMXxNWprUNIfBQZ6SLSucl caeJIeUQP5oX9uOETotQ9v f8k0CUVzyvy3PYRqCUNIUK 0tfepbx17uLOEUOvLcF8sN NRssNWRkUBL9FSPwLJGbo0 5rWG18VETlyxgkQDCzVe7d WOIjMJqxYHWpSJY5CTXion ncvYWlCGO9mV3hUQCgeIGi u7njrpfxvQAiCMNxYkFeVC 5uyildL0remQZpROLNFgFT HL4aM9OqUWOaHAddm6JvPN WikH9rbeQwgFOyKCTxBsGt HNKratYswq2yHU7gR1FtxH a4aE7cXDgpZC33wP3iASlu UJHgfHXdZE0jCWQBDUUuRQ PRWSZaw3IudK7mGXEjfoRr bmdccGFyXHBhcmRccGFyfX ffmlWxHShbj7WsYSceDXOg AY6mtUneTVNvZG5mHFFrW0 dokN6kuwg6FdKuJODiTwF9 DMXdyjO5Nzs3BYPeESmpd6 csn9LyRWStENe1pHztSfWl NCSye8ojnbPmYdIjDGFuLS RgJTMupNYlG092u1osz6tv oiKecDU9NTTbBPV7SMiscd YzvtE6FBtxgGMuGrA4NAbf avXeXIysqhKiqoYlYny6BN YbM304BBF5iJjjk1qlRJG1 ADQcNAFcRzUwUl9ruEKtA8 43YMJuVGBKHRAneBn5YTEu ddFfmmThrXWEd465G030h9 fcBLXsojOdcZvAxsple3cy X525IDSxcAFuolRiRlJvHP KlvMEgoHO7MCVzUK6rvvuh DBjrPIkcEJVovqR0XQHpgX MtJ0YfYRTuPO8araibDUW8 CVnjEFVyJDH2IcLyCYMow2 Ixolf8EvQsti3tfa72MKW6 c8IabWzbJYB5FKT7GjGdZd 0tmIAdKJOrNF7fQiSomEDe VPChql05oSsjLLhbLYZ0IP WxcaBgt2Jzx5qkFqOejgUm I4znB0ZnBFJeUAEaBOVkWz CzcoQqw7Sqw0CemJWjtNv8 f4qbFRHtRSLcnMxew5ueSF G8KUOlkKHnB6nixG3sBYAi GX6pkkhwm4igNJkyFQqwEA YshBL4xmP5BKEiqUYoC9Kp jV1pWJKaEYblKAEmuqx1Pw UfLn5ahSOvlYnzYWrtDttw YWdlXHBnbmNvbnRccGduZG VjXHBsYWluXHBsYWluXGYw XGZzMjRccWxcbGFuZzEwMz NcaGljaFxmMVxkYmNoXGYx JRdvQ7sxRlVpItAcXho9WH NtnZWdOXUoHfp5PKVovFFa HFQSqTdcmU1eLZUwvJvafQ 9goZE8YZLxhvVfkFOSlY5v CLXSrR6nZoU0ISRlXlc3XY S7AvFfbIDnoA8= COMMENT (test code = m6nowJDrBFKdpWJ9XyZeEK 3659) Yjn8pfq2ZjxMEphQExQLqc cLTnvdFoku03mKL6tW17XZ 6uTRAqSoC9SRHvjlI9Qim5 ZLEhYSLayAGlY304n4vsa8 qdzyMlgZU3zElxKQSzoanw BdW7YFehRIUvltisIAw1AD vdKOFpwCR7FCMigKAzB8Xq HYXwQF0ljvs9OCX1ZOjaLV PaJyP9KFRcoGDeDVZrrJbm YLouh252JBR1YhWiFNFsun EsvOoysE5kXlWgXOQOYPB9 lY3htuSftG17VNPowNQsbS 3gv6MnSExsEOkdcvHxfVty l55lQDMRuYXeZWVnaqOumg RnsWjoxFKlD8SmfWDfdDOc dMhjOBKqjWy0hAS9XO8uAB L9cLIjO0NaGMWxXPS7xlZd FyAlCqMntU3foRVkTY3dtI mdQQNhpcVbl3DmzWYry8Xn xAPlh4GhGDLivVQknRwash 3zUIIvC2qxi2EvMRR5nsFn eyZdhOoegNxbP1v7ySBjnM 0dpFHtmCM0pM2wKSFsBHRz FWIsElIwKSUqEHSdZL4fzb 2oA6RerTp9rD1gYTgjLP38 zF8sBIStuhDvLLWmKE4iEJ WnBaOdJQ8qdV2skQiumZ8g aGVtaWNhbCBzdGFpbnMgKH MelvQims2uWXSxmvJekA0m fpZBEVN6uCGrHGPdbQJfmI HhZMBzFNWffmEzg5mhQYVd fH70UkgpECIqOTYHJCA9DE Ayx4o7qLUoSVOdzkAkYUhm Byq3NJXam5fiMuBvCSGhgb KsgR4sMNhnq3OoWN56GIWj GeavqTOusBCsTQHpzES1kN V5vB9jDFhxDLYnTUOiGJqj cylccGFyXHBhciBUaGUgb3 PddoFjnBJicI6gxL5ozbRv nxLesH3ppPDvu52ckCJ7GW 79ZFnyfJvrFEFqIO6hdybw x25qESTRIpArZ5xGDCuxKI HtAZZyBAXNuIIyk0ImnIY8 lJDxKSPuyzYlJi7baWQqZc YlTtDtTJQaiFSqbP3brI2w dPHlHpEhunPwHF4yVBIht2 4lGSWtUCTfJWjnKSCqe0Ek dJ1dvMEpaIO4c1C3PAgoZq zhtRUmcOUssOQlfj80XLJ2 FtXuR4riypSaDz9pNLEzEQ XuFKOxU17ifQmixzYbKuIw yG1lcU3hhJXqoJZlwCOmRI MqZ3fdhQQpbS2plH4rLF3u UVZNZRDlYIKHARAdj8VxgL 4lm1snxJXrXGNnRGQix0Hc LWStm50sAarzD0otZkGnYI 1wFZUecB9ssVVkPWenEYEh FIGkGMXtKLKuMiQPvy5fRX VezNI3ZLbloXpnnNSeYPRd mtsad2NeBNYgOPWfTLRcAJ TmVPRtG7IcAHDkg7h7dNGv lwEqGBRcHN2yburcI7mkbG JtLKYsyhzwCGVzZdmuM6lt EgAgnAHoDMJsFTM8HHFaCA A0sO1mRNAhcHp0yEDirKH8 IGZvciBhZGRpdGlvbmFsIG KnQ0cwdODybRTsqKGhyUYb LlxwYXJccGFyZFxwYXJ9 CPT Code(s) (test code h2btyYLoOMYebMD2UhLwJS = 9649) Iri4hzx3ZdyTPuxQGcTLen lJLiyvJmlx35dUS0iU05FW 0rPTTwSjA0CSVzrlA0Wpo6 EVKoPNUspEDsO899o7qmp6 doeaHlgEZ8qXulIEDmxbxg ExQ9HPpjJQQjwhlzCQc1CI aqPZUhzOY3JZMelDEzC2Fv RYKkXX1pjjz1CNJ0ZXjvJX WsAuG0OTSckWZaWERydVab KSgqa128LEF4BhXoLURgnf SyyQjwwD9xRoDaEZO5XGLr X1gkGJR3JKWwMMvdTDimVE PsALy4CxUmTRI8JUVjFcte XHBhcn0= CLINICAL HISTORY (test k9atzXQtUAJqpYN4OnQcTP code = 3356) Dff0uoa2YxqGPqhCHmVZao mTJjwgIgmn17cOH5rQ05ZY 3zRTKtFsP7QQVrilI0Hdy9 PPXcTXLatEBmT440m5bcz6 xvzmVmbON2vGheJXMcfhdt HbD7CExwORObzovtPCk1FR wyHQNkqLG1YGExvKLwY0Kq CBOwHZ6dcvl1EIR3LRlgYM CnXrX2GPYaxWUeMJCfhGdo ZHbfb959EZH6RxAvLKMeos OzvPiqcF6vViPgXIP9EY20 SYFdWZ0bSVTeEN7xnBHoe2 b6tXNrEUX1GVMzyoxptGRy FFJfYKcyQWW6cF3vObydJP J9 GROSS DESCRIPTION (test d9bulJMbPMVrlYYYUEFsF9 code = [id number]) vpznAvKWVqgDPgE7Axnnpr HYtlZG2lGZ5miGcacHSdzL XoUG9FOXWtImDaCDCsgBEv qhItAvCkWAUdmWDohDM2FZ TlRI6wiygkKQhrEEahUNNc xcV5TYSifOQkN2SmCCGlIB 8eddrwKKO6TSwpfO6wsiYO ZggpBx5edGGccDuvGyPjNz NoYXJzZXQwXGZuaWwgQXJp RZd3zM0OVdweHLI0QRBBVr loPHEuYI6Ia3vrGWZpqPUv GQA6HLwnsRMpKIXxECVmGG l5GJDzHZfbcRZyEB8tjCni RzbgoHrfq7MsdCIkYTfpZS UhWTQpKWvpAAXeSL4QPxEg NUi9BpO1FhPjFAb2VVh5WX 6RRpMvEBWpHwGfCou4USEv HCm5KVtyTM9QUUX3RLDwAb T6ClO0ILTcWQNrIHGbLnFg XGYgQXJpYWwgXFxmbCBcXG 8zvHyrzYJjtrEUHgSIjK7v qe1nsACnHU2INZVveHIWHK I3KF2yQQDEQmvnuYAzRADe uNrxVObznL0oXE7RHEx9ww NoXGZzMjAgVGhlIHNwZWNp bZImGGHqO5RljkNfTATqUB WmTJKfshGdaeZtZS2vZOTb cOo7XTVwd94xfHe1TAPnm7 0axVVdDKicOFL7qDDnIWMp QRImHHBzDS41ojBsprBgga 1hdGlvbiBhbmQgIkxFRlQg GYPZLQMOSBwePFPQZ1HrWG YoNBNdKYSyDEpfFV35xaLx RaA3XK2roCfqgnE2rEYzyT ThbUZxd1HdlJ7bNDYlVRT9 XAObKsO9QSNqWlKvoRJwmw AeR2wcVNkssPZcTC9vPAWb sGFoXWUhpdHdyWVyaLY7RR MnOO38dIGfqFmkAr8fQHSo w4aacvYyJGX3yW9eEQtqKG Brl5EwiKNxOLNYKIRgNXKx BHCoDC7qrT2umgpdiDkaf3 WbDMtnXXM8Eh3yyLSkFFQg bnRpcmVseSBpbiBjYXNzZX D9HZSSYd7rMEdkdNzkwP2t ALVwJ14cz7DZw8PzXFFgVI ers6drxWhys9NzaPGhHCai LACceFIsUOsyhE2aDkRan0 dzoXo8HXwhusQ8CHHvee7U CyaiNwkheHjzv7PwjXOwBC ksAZGhEBOjHStkWJHbFW9L KpVaRFr2OuY5ElSfQMq3XJ c2QM3NVjAwOULfNfMfZvw3 EBVpHAw6IWfpSC2XRCU3UZ clGIu7LVT4BMFmGASmWKEv MiBcXGYgQXJpYWwgXFxmbC BeEL8ulMvblkY8NTEkWZnm GRNwSNV4cN8jBvacRMNnTG xwRDUcM35ch7VPe6DpLP5S PDe8feNmzpgdzV7nYHNwhn MmFIsitXEsH3paMhXiMPWC ZWNlaXZlZCBmcmVzaCBsYW JlbGVkIHdpdGggdGhlIHBh fMeqewUmQ0A5oiBcGD6jZW QxNLOrC5YjOYWjK97eUBRp xX1jNEIoKX3yJDX7iJ7evz IcgFTbZPQ2TTjbFg05RDul BAFimTYsP7eqHEpehHRwm4 CtrQKipEhopEAdE8DtcY90 zFx4IWmrw5kuK4a1vCjyFh rmnFP0qZLbrDRrEhRqC27p bnRzLiAgVGhlIHNwZWNpbW FgAZigKDFuheykmIl4POLa I3Bwg72aQAD6leGtCEWsPN wxc53huFhpVMJnKDXgh0Jr qQEhx6YczRTnXR8xNSAydY Jit7SqfAC0dTKwVULiV0El x88cRGPoTNBbwNVxuKS4YR YvwR2tRsKdXzXuRzwzMVBe IQdsuCZaGN0CK4njoZTkVF WLamO5bigcTFoHFCQDCTZz SNGORTsmmD2BFRZqXPdwMJ RhkGTNDPJ9YM5oOBsizMXb iqunASIuS1RkO6CwyjUvkG GwZWCpzrKjw8kgKBX9HVJn nKNysWKjUvZhGvaaUMW0MO fdq2flUBE0ELLdmCZxhZTk ALpzGbTnRfuhXFQeR6ZbY5 JvmwO5TQw2 INTRAOPERATIVE a8raiYUfXREusVR0EgGpAV CONSULTATION (test code Ocu7cgx8AdaSFvbKUySRsb = [id number]) cNHvklLood53uZO3kW30PJ 5iKMLnJcM1SFXbzwO0Cxq0 HYNsZPAyvFMkO079y3qoj7 ifckPvyAR9lCbqDJVmmxvg OzH1NNeeYZSjplvaBVn9EJ vfKXKmaMP5QJRepXLyZ2Qj UFZbNQ7klry2MIY4APcdGH VfUhZ8IISsoZAsYUNltPfb YGnii771BQT8TqHxGUMmee K9SShmWADaK2BzZ2PcGAbq APX0QOLxETDlNALkYXPjHM OoKYshjlU1h6mjVJPepCXx THC6XAdsgFHxVJAkQZSrPV oyPiWNGfHoHlP4TEH2KDgp LsC6RLf4TWAEVwNrJkLkKx N0LmQ4OXOzGXr2OAe6LBfS DjU9Irx6DuB3OwLiJVZhDW WfGGr4TQNpQNplzOUqOCXg WZBfDBkpAJwmL33ayAkzxM 0xVjKeLVTCZtXEmA1uzs6i cGFyXGZzMjAgRlNBLiBCUk FJTiwgTEVGVCBQQVJJRVRB GHVENJ2VTbczNayPJPWCWk sxMCUbgPMiIR3tWZQuzO0f sB1uDXtlZQHncXZeHZXshK 9huJBdHJW7LLWlCqMZcOU9 hxXBkn4bJvBgBM0pFFAfAC CcDjYkFQQxDKS5KaFmjSqy ZFAoT2CdO5IksoD1j1leoT zds8CqvWPdLF4fyMYntF== MICROSCOPIC DESCRIPTION m8vmcRMuJHVxjAO5DoFyPY (test code = 3371) Ifz9zlm2SblXTbyMNbLYkg aNUekkRaey83gEL0jQ02HZ 8zPGJvTvB0TDIolxN9Kwx0 UNCeWBIejXDjV723r2agy7 abcnMjgZX0oNynOVQvfxjd GzV7NIncRTBfhaciKOj2PU roJYRypEJ5EXAbkESnZ1Dt TLViPJ4vahq8YIX8KJzoVY MuYgN5HKQxaRQzFFJvcBzu PIeir380QWY9LzYiAEVkor AmiEpljR0rDyYiSRVKAAHd u9UxFDSgfLSxeE== SPECIAL STUDIES (test q8dqoIMfCVSgy0etTIApwQ code = 3376) FuZzEwMzNcZnRuYmpcdWMx HKdgjuJnNPowc2FhW2MhYu AwMFxhbnNpXGRlZmxhbmcx IVTeGMM7gmGjCAYcDAldUR PqMCjlHk9hyVLoaZprNmBt UZDrv8sutiWEwnlzmFo2n2 ezFLUaFgX2dUUjSOetT1zn lfGvcOGvE1OxjMBxhIp2c5 jlEgPwCyM1kOTvNSqwI2xw gyAhgWDsEEDaTGl4mF53FQ XftF0jiHJqFZgpwbVdNbT3 GWwdJBYqSwC2CDTyzVKeCE MrA6ovSSHuQZqtYCMeWLdq qRWtXDL4yUeyj0D3eUImrC SlnDqoMqSmDxPkZgWNb7Ag UGg6mPuiW0UkLZLpXqM2xR QgUGFyYWdyYXBoIEZvbnQ7 sYhiveVch35xgETaLEGbQX XuLoWzbStfJYWhERTUt6Fw jGvvERJ0kPb6qXwmXbctII Y0Sdj5ZL4ceq28xiq1yLcb HKAzkvbxZdH9ZRuzDOEkmv jwQLy8JIkoBNKahGH8FYFy jTFyS4VdPFEbIU2utyp7XK V8CGasPIOyUsY8YNYfdAXk QFYvzSngGZnba360YSU2Ce IjMK9pG1Zxl7L7mV1ewDGn PLBdoEUhGgSdEEWrhi4gtO IgYFkdz3NxFWA8yaI1oYJx sFObZSShXG33Tnejj6HvBv jpw0GiE20wjHP8GFwdi3qy AC7sZsG6cmHkYYexu9koyD 3kBsG9ULwwBM1lMS5hCLWf cZ8fbnszZDDjZyZgxzjnLD EnyAzzluNlYj5osYcyVMY8 FDlxU8kkvD5eSqR8JKsoU5 stiZ7fOJj0QWrqoMD9OGZs oC9kZR7vhlwun6ieGZgnUH wzSPIxqyV9cvL8FDXuwPRa Q4XpbF6lMQPaSC5xggkyj0 ztVFH4UImnKRIzXDW1ShIh SHQwj6Gcosi3OvDiq9FnjP WyCThzA77qv787IYOplrYx Q5ztwWPawxkivAXqtkusIX reknO6XAXbGRFwUWsfIDRd XGZzMjJcbGFuZzEwMzNcaG ljaFxmMVxkYmNoXGYxXGxv F3ddMqToQ1WgZIHkEfYnPF msQMyggTCnkQMhgKA2eG4n FD8rYRPzeSMqX1RsJJGlis XtkXAgJVU2dULskZEiLS0f UDnnhAAor2jfz2PeS1vgyA kkxXD0FF0iHMNvGSFqPXux f0ZmhM7jZudxtERkbingBK xmczIyXGxhbmcxMDMzXGhp O0gsGwFbUPXzbYdqCVcgr4 NoXGYxXGNmMlxmczIyXGx0 cmNoXHBhclxwYXJccGxhaW 0jCcJqOkHrYuacZS7mZHNb U7lvoKDbDTOgZEFoC6nqQp LbaO9zaCyuIXhwXmIbCfSq GwDEl519ec5iLUTtcPJkti WWyTYqhO9xBOjdJWogKOpx uXAcBSgls2jvPEJbn2d5hF GdFPLyqlKwt9qsKIfavuHk RDKolSUrsBXsESXpj68qZY spiZcwvNdxUGRfm1GzbFwa g7PlBwGvQDofl3WaH38ylK JvbCBzbGlkZXMgcnVuIGFs x13qr2xbIKNmJgZ0oQSjlX N0lTHroQVay9WtbUtmYPKb z8rlUEQhvv8msuaauQZgk4 YhzX9twggjWYubnROkvcWv GQAqs4a6sSJlLETtAHMuWI lceLf6DMFfq324eq4sonH6 rTJqOYQ2VGkgIVTlHCUgqu UgZXZhbHVhdGVkXHBsYWlu XGYxXGZzMjJcbGFuZzEwMz NcaGljaFxmMVxkYmNoXGYx HWvsS0loGiZjL3WwJCJwPx GpxHKyU4bbmTAfKNGjWKxv XGYxXGZzMjJcbGFuZzEwMz NcaGljaFxmMVxkYmNoXGYx EWmfZ6prCqXdB9JxVOLwSw IgIFxwbGFpblxmMVxmczIy XBjlplmzZTNpWGpoN3nqZe EgJZIfrMomKJpxa1KwSQAp PVZmVsdofpReNEc5ckOkNM BhclxwbGFpblxmMVxmczIy HNnmsdxyRJLnIEqqR7frIl RzQODtrYmtIMupm1MxMTFq XGNmMlxmczIyIEltbXVub2 gqp7WgC3zzhScrrVI6ATZd W1wzsHBftLH2AIM1fZ7sBO tuhsBvRMLar3TzKQDdPABa JcO6zE0oNOF3YpCKoXqnCE BsYWluXGYxXGZzMjJcbGFu ZzEwMzNcaGljaFxmMVxkYm ToIPRoWDiiP5xzNvWxH5Jk ZFWvPsPwmQotHYafYNz9Dk xwbGFpblxmMVxmczIyXGxh ucgpFDZlUGpcE1zpXwMnLX YlbQtcBPjio1QgHRFuRIPx MlxmczIyIHMgTWVkaWNhbC UEKX40WUMaSBTbwZcjaG6h pAXQYOXpyuY6i0G1EVptPK OkDOs9JPipsrAjEXVclD6c DHUtVF9fLRa1ucFgVOEvx1 DiEI7dHUBzyXDuAWO0NSJg u2XqB7Lxn8GmGZXuPTWflb 7cymMtJhTTbUXaPXVqhb99 XNCmIV7wA2gvVXGbCKUala HluAYpl6DfWNLgyGF0xYAz XJ9CIoHBm84gMEPdMEHVcq TzGRLsrMhomQN6ryO9pL5g LiBUaGUgRkRBIGhhcyBkZX Cyck3uguTpICZrYMBew9Dk wINqmIWgulQqM4Wew4ErKE Nenf51TBbpqEJhop31YB8a O2Yum5GexS6hSVedHCWgq9 SazNFdwPXcSRYza6YjQ6fl dnhjYSgovZTndZ7dWIVmXY p9SNNir0GeLCNap0WhFxBd lyGyJPNkBVOiPCHkzB39NZ A5fVvjyDqakoEwZS1iKKLq agEqDJOuETKowN8bALbtew ZvVUVvyaU3g9M3PLifPHLm mbXqJoqwGPI3xrToemI5bG TxA6nbdiykSOnzCZGmj4Ly kK4qgMXMkYEma4RfsYPjzM CMvZBwGI9oxySoYZ2bGTP7 ODggKENMSUEtODgpIGFzIH U0SLrqSrqfHOT2sqSxQTCz d8VhKZckF9icJ99isCqxyD q4aLXgeYbfmAXhwHKyCZUe ihQ9n5E1PBAvw4PnhpdkOG BsYWluXGYyXGZzMjJcbGFu ZzEwMzNcaGljaFxmMlxkYm BcKNUbDMqrZ2pwHgOsDsNw GsvnOMK5kS== Gross assessment was [facility] performed at ([facility], = 2777) Department of Pathology, [address] [place] [address], Technical component was [facility] performed at ([facility], = 2778) Department of Pathology, [address] [place], [place] [id number], Professional component [facility] was performed at ([facility], code = 2779) Department of Pathology, [address] [place] [address], [facility] [id number] 12:54:33 Test Item Value Reference Range Interpretation Comments Case Report (test code Surgical Pathology = 104) Report Case: [id number] Authorizing Provider: Khalif Green MD Collected: 06/22/2022 10:58 AM Ordering Location: [facility] Received: 06/22/2022 11:03 AM SERVICES Pathologist: Fatimah Marino MD Specimens: A) - Tumor, left parietal tumor B) - Tumor, left parietal tumor ADDENDUM (test code = [id number] 3381) Zpk4hgu4ByaAPcgFLoISdf jJMfjaYhwm60tTC7kM18KE 1hMCXfUhY8WMYyufM6Xnx1 WOCtQMEstALaM829o2tgw3 vkddAjoME4zWabHQVmexgs VrO0VLlzSGEigunsBQh7ML lnBLZshPE5BCOldPCsQ4Ot KTTfFZ5nuqs4LHT7YVchHN LtStQ0FVBkyEOxGPRftNtp IXzkk883GTY9VhUrLAZxgr EpcFkfxJ7bBiJrLTGZHyYc TL6aRQlQYpSstONcinNlf5 gidmAboaUoJ4jtTCVrw4Nt u4YqMqCnB0SlKY4xO9RcyA Bgwj2qkCTiaV== DIAGNOSIS (test code = l7lesZJuHDMeo2wdKVKouE 3220) FuZzEwMzNcZnRuYmpcdWMx IHtccnRmMVxlcGljOTYwMl mlcyZbESGbtLXuS0Bwrvhq YDrhTD7zGG5qsCshkRFmpD ZcVHFqOhDjy0dna123eVLz x4fzMWQLcchrsIt1iOxpI4 5vu8F4VpcdV67jqMHvXEQ3 SMUfAKNjpOOuWZBdODP5FN WboUEdX0tjMIZgJW5lsrlq RUejPAxlONVlwJO3QFTtaZ EcA4JeGWEvALvhNPHjfnq7 AhLdDw3omHMcmXnqENypFS VjVFMfXNpfCQFrHoBrSS1g WENqWBggBOCmFUP1QVNujr fpqLLcCAF2wW5sOZIatV0c n9i8DSGyimv3UERdBIJCIP 7hhadiy08lKOGYTcPqZ3mG XFcfBGPaZJS7IMIbHKAif3 6qPR69WLCdfozmBFDfJb8x NJVlLMtdTUNvFGP0TBBoef zsaIRzHTB6dA4sAFHqoSRb s5qwpsuinMEcDWPkVbVxIZ 3qnurzL4sceBWaXWTOGmBL QA9dK9LoOKVjONjku1JiVP KkbQ4gkzLnkSOaZOZmOoAk HDKvmxRzgn7kMB9mD8IsiG u6pU9jECzwLV58eV3qISge LROaxJAlOV6rDWGQZSGaHG FZBZAww4DmxG0tALJufbCb bmdccGFyXHBhcmRccGFyfX yzwrPgOKoge9JnMAxrRJBg MY0ynIxhPADwWB7eAOXtE2 clkU8qszv7ZwPfPRWdIlN7 RAJfmnT0Oyl2TQNxZWwox9 bqf7CiFNCtABf5oAmeNuJm ZQPmj5uwccWpKdZfFKMzHP QnJVFtsIFeY179f5lee7rl aqFmjIQ2FOKbYHB5ZAlzzr StlaN3HMahaWSxBkD5ULcj muYhTLhopxMbrzOtImb7BG RaT041FXO7sPhwc9mgYTH4 OWNdHQHlIbVlWw6oaTDeR8 26RNVlFIQXNHGwwOm7WSJu qkFmymAfeTYZj285V725j4 txEVBovxCfoLjNnxgos3zz D478PBDbwJXwicZrFaPhER TmqKLknXM2BWMwFY0qlhoj JRmrDZhmVDWkvcQ8NNNkaU MmM0HaERHyZY2ybblhZYB5 QGumBTEeTEJ6JpZbGYRhu1 Htuun0PaUfcs3taq37XSJ9 d9NerYgnSWB7CWI2XvZoXy 0rdIWiOWNiDV9vTtMjkJXr KPRexs29xNbwGCucFIW6FJ VujyPzo4Ale4luYpHoglGw G6qlV8CvXZIvIKIlOVGyHl YhhzMfc9Jxf6XgnSAiwMh4 t5paWLTuZYVwiLlbp2gqHQ Y4GVWjcTSuU5ftoI7dJKHd DT8qcanhi6phRAjsHHnnZL FrdGE6qkH1NOWihIUqW7Sa lF4oGSEdWPynRTRzmhn8Jh NoOv2xmYCpoIxeWAgySmgw YWdlXHBnbmNvbnRccGduZG VjXHBsYWluXHBsYWluXGYw XGZzMjRccWxcbGFuZzEwMz NcaGljaFxmMVxkYmNoXGYx HUchF4zxTyYoZbEpIdy0JO GfjGOrZJWfFxa9PPXflWLl PYUQaNhoeS7lPGJgnZldiE 0ioBK0CQHhvxSbeWGNrQ2s ODRIwF8mByL1YMPaNir8AI Y5FqHhuIZwpD2= COMMENT (test code = g2xzmOVdHOIfaGX5PdDgSE 4755) Ydr3gdn6UmgNGewUVwVZez uBVhpiZvrd67bXX1gJ37JU 0vZMByHeH6PHHtdvW8Rpw6 WQCuAGLihQVcO835g5ykk7 lywdClqBL7lEirJOXmadnl IpD1RDjgQOAybwulSUi3UN tuLLQsmLW4JXXpuOMlD9Wf LFToSF0lpjo0KEG2RMhuBY FmZtZ9WJLvgNUtAHQdzGtb CNgje760XLQ7SoOgZKIylb LajTqkaJ2dDpGmGDJRXXO2 tV0elhGfiM26VUQnwJDzhF 8hk6SmZZqcMNlehnLcjUuu q37iVFFUbDEtHLWsexBndx GrhUbpqNZlM3RenXUcsPBb qJauSTQefMx7gFH4YX8iYY N1gHXxY6XkSACqMYC0jyXa MlTcHhKmlJ1phTFgDD0zkH thMDPfftInh4KonBCkm6Mn xGGhk6EyQLIhsSWenUvxag 4yXRXoP5rho8ErJVM9dqPy hoCumHnjfCnkX7b2cNUneA 1kiAWkzCT7tS3sMINpNBSb RSKcEhJvOGUmVMPhIJ9ojz 1lP9EbsGg9yD4oCXgfOM24 mK2jUZLontMyXUHrJE3wEA TwMmFdTR1hrA4koEpcfY8x aGVtaWNhbCBzdGFpbnMgKH OxtiJsrn9hOVTcaqZvnO9c qzFALTB8sWFnOTFlzUGwiR WkVMTqZZCgiqHvw6hvHSMr aD63VomwMKNhCOCOGGJ5DR Pqe1h1eFKhLINiskJsOJlp Ain5HGBqy4neZvPfRBJkav ZulW6gXEtme0ZoDF29KQWj WyedaYRfmACvYHXacFD0wJ N0bQ0nFXjrRQRnAIPbSIxl cylccGFyXHBhciBUaGUgb3 IjgiMniNQskV2rtY7hhlHa vfIslY2exNTgl49hkDN6KH 85FLcdkZxiXQSmXP9dskow t78kRFWPUgRvL3hUZVouMG CmTUMeGKIDhTUxu3RokNL3 uVBxTHJvjfIrMe0rxYRjDn EsXeAzYUMcaJPzwZ8yeS8z pMHpDqNqbkKbSM6eONLxu9 6lORAfYUBxFLmdYMEfu3Lq pJ7jjDBwrZJ8i9M7CIrdTy aptQYfdPOawKPjbl44YKB7 VnWvU8klftWdAl6aRWPkPD XwYKCsS58nsEdsenZaWjNr iS6tyT9yyIDpbPZhlYUvFB CtR2onoZSlnP3rdC7jYV2b LKIJNEWwZSOMBUIpz5DlxG 3gf7psaQUcWELzFOIfk9Rh VKKlr23iRltfR2njXaXdXB 7tDOPxnK3maTVvFLqeGIUt QJUsKSVhMUPaFdVGoc3mJZ NktNJ3KDeyuQwgtDTvODNa uwkrv5YsVPWoHXOaOKEhJB TkLDSjE9ImGYZxi9r3yBRv tuJsXTWvIZ9xdsbjM7ewpU TxIKJuxfzjNJZtDoexH6rf PsYohFZtGKSdORM0XFDeRU X6dU8aNBAynTg3fHAxrQF1 IGZvciBhZGRpdGlvbmFsIG RaR3chxALjrWItnIMyqRBr LlxwYXJccGFyZFxwYXJ9 CPT Code(s) (test code q2rfdQDrCEFpuSK5GfOfWH = 8977) Esq3lwt4DgsZMhrTOzBLpd nTUmpwKvea47aMT6rK30ZS 4wDSJiZlI0XDEwerX6Kiw0 DRRiCGTmfLKlZ257e3orl8 olofIorMX1gMtvAKBradub CkW5APtkFGZlnuorKNi0FS atTSPsaTI2AOWaoEQzX8Ll NARlYH6avrc4VDZ6GWdzEZ SkYkR0DWTolBGjWWUgaUxp KDxdg305KRV0TyQdCVKuop IlyNftbX5gDiOjHUT4TKXt P2clMLL4SFBxPVzmAGgsCA VwRTs8FaHiAPR6EUChNcro XHBhcn0= CLINICAL HISTORY (test p3eeySXxPKWwxIW3ZqLpPG code = 3357) Efo8dki6PehLFrbOHvPUoc qGXdaeYfnb93tPO9zP19NI 0uVBLkSwF3EJIzuoA6Bog5 SKCzWUFfmCUeG921x8hyj3 zivzSdpEX0eQzoBLWbmsoa WrX9NUccLWHbmawiRTw5XF glQHOxwLN2QARtnGXlW8Nq GTRvTP4ijxc4HTL6BRqeKN NpDdF5TFOmyYKgIMRkgUle QNsmr189XIA1EoYcRIMidg TttGxisC2kZkIjLIO8CM42 VFEpMS8gZPEiKY7bbDAgz4 o2jRUwIHQ2OVCwbvlisSZp YXYcUGboHZF0dZ3oGickSN J9 GROSS DESCRIPTION (test b4qahSAdJFCbgELLQFFkU3 code = [id number]) yhdkQmLQZwkWQhG7Lzgqnq XVzbCQ3kLQ0bwMhnvNPjnC MdNV6MNKGxFmUlIHLmzLRg uiMpYxMqYGGslJEqsXT7XV FtFQ4qukgaHPpiIUumEYPj xlI3EAMobPSfS1SpFIVpGO 1xfwtfBJZ3ELochN2jdzDR RdrtHw1wkYHhqHkeZyFoMf NoYXJzZXQwXGZuaWwgQXJp KLg6dE4UTijaCBU1ACKFZa wtTMItCR5Sq2udHQWycVXq LTI7KGdydYYfMKUlQJMlMQ k7JWEqLXunyPMcZG5onLpt IopmjYxkm3EzmEApUMqgDN NiCTPpDOlqKRAoLO0WRqHq JDi7HdN1NeVyFVb6CUz3WW 5XIaHlJCTxOnQuLno1OUDr USs7DWliBE4MQFZ7BORuXa F0JcI0VRGuCKCsBGFdTyTf XGYgQXJpYWwgXFxmbCBcXG 5orYqesMJyjmIRJcQRqY1n iz4adBDmBB9HQSGulVSKDQ W4ZM1wFUDQLupcnOQrVIAb jUbgSMmhhG0hBZ8LQDn6sl NoXGZzMjAgVGhlIHNwZWNp kHQzBBIsM7ShsyZwHSFfWT WhRWLgupNmnlDoOU8kZYRi gEz7IDDaf58agJn9MENcu1 2zdPHrDWpdGXJ6aLGbXURh XCExHNJzZQ42ydSrbrNauh 1hdGlvbiBhbmQgIkxFRlQg WFASFZKPJRwaLBFRA2FhUI ZhTUGmTKTkITgiFQ98acBd SwL9PA2cdLbxydJ7nOLzjE BtaJDem4OykR5wAMXtLHB7 BELyHgZ4AHAzSpXvuAKofz SyT5wyCJbejXVsVT6hOFAp bDWrVRCrgtKgnIGnfHT5HZ IjQD38jVLgiEoyGk3sVIPi a7mwyaYsMXJ1pI8eKIeuVM Aql2UdhIDrUQXNUDRlHOLi YEZxTW9jwZ3qgspaqFekt0 JuUHxeNQX1Oo6jvSXnNPUl bnRpcmVseSBpbiBjYXNzZX N7HUVKHd6pHHfuaBtvxC4j OYGmT86hy2PQi8JpQUGbJU psh8yeyPbmu2BikJThTYbq BIFvaHXpUFqxvF2xJhTjs8 nkuIx0HQaabfR6QTNtmf7L SuqmCripoHjhk2AggADyDD pqUOUaXJMgRJgjTMUeAQ0K IePtNFc9HpW6RaDcLUx4FD c1YT4YFqQlQTQlWzVeQmx9 SCKfKYw5WVtmYZ6WYQR8PL yoYBt2JMN2WRAoNZSfYFBz MiBcXGYgQXJpYWwgXFxmbC RxHR0jtSggkxR3BGPpCOen JQUjUSY6sD2sLrmvFMAsSM egWZDkO07bn2IOf0CzBQ3Q YQs0dkLzfqngzS9dSEJcps RlZAyuvARnZ3rvGkCsMISG ZWNlaXZlZCBmcmVzaCBsYW JlbGVkIHdpdGggdGhlIHBh uSkbbnBdF5Y5unVlOC2zHG GrSRCdJ1JeENMjG54uPXKe sX8qYACjXO7hXDF1yG4rep DzdXVtMUK2IRbbWa26WZpc NZTnuNClD6qwLNqlhIFic1 CaqZMwhWimwCCsX4VmpX78 zOr6WWblg7msG7q7fNwjCw nvuSP5rWYgcYNuTrVfU06f bnRzLiAgVGhlIHNwZWNpbW QwZGauNQAhaeqzdYf8CJFf M2Ovl27nUMT4vmKvIBZpTQ rfd69rfQcwAJRbAVAbu1Xv fXVuj8RdkRXqGL0fBNTckK Yem5LkmUH8oGWoTCGtH7Gu w36eRFAmHHPcsZAmjLI0PO OktQ5iWaJhRqCuExarZJEf NKkyaHOsMM0UF7ttlWXdFX FGgaC7pdcgHZkZSARZQMDw UWGZHKykkD7QYUPkAAalXE VoiHHBXVS6XZ9qKRaolZOl ajspDSDdO1NkQ7MywmLksZ PrSQHimsFdg2nqYDO3QVQm aZOiwIIxDpQyGuluMCQ3XE hjr3fuQHE5TMTaxESksAQw XUcjCdJyXmgeLHTjN2QbW2 MppqK7UZx2 INTRAOPERATIVE s5piwIRoPINjyTB3WzHkSF CONSULTATION (test code Xks6oux3KkjTOhlMWiOEez = [id number]) oPKpkzQgmo21gDR1wQ26FI 3yUBTgLnK7LHBhavX2Ghv0 EDIlTSDcvCOsK337g4fuv2 tmbaByyYC7iIakLXRxffbq AwV7LHbmHUNobphjFEp5LP mkOFXzrIP9GBCqjLCqS4Wt RGHiNQ1cccy1FTK9MIycHU BjNsN2TVYbqIMfUXCfjYzb ONefr812CSD9IhNhQDQusb G7BTpcGSTaX5DvW8XyBMjm FXY6FWNuOSAnWPYzQXQjHC QjNJyflyB0m1tiSOLavKTx GOU9ACmgiTDgUCFrLZFdJN rzKxJMDpBoOzN2QZV2GPso LoP9PGf2THUKHmUxLxQjFe S6DfP7WOHrETd5WGo6TWmY PeU5Pld1FrI6VbMtGFPoXW GrUHq8RDAdORhqgTBkZKYb LFBeJZmhFCkeL69eySfedJ 4bRcWjULSAWnRQkR5ata5m cGFyXGZzMjAgRlNBLiBCUk FJTiwgTEVGVCBQQVJJRVRB VKZFTA2RCtcdGjrESJSWXt sqHGZwePHrSM2aNTVjcR2w mB4hBMvwWBOliUCjYJJroC 8lyJGvQXB7KDLjTwTZwJX3 odLLhg8eSsAtJJ4xQRZiEG VoRkRmPOLgSVQ5JdBqhUmr LKYnD3NtQ5JfeqA8g9nzeM hls4RqoLPoHS9wkSPliF== MICROSCOPIC DESCRIPTION z5donXVuPFJxuNY8ZwCwUB (test code = 3371) Doc2plr3PabVVcqTHtWQjt uDMbihVglu71dGI4rV12WJ 6gMFAkPcQ8COMhebJ9Nxd6 OJBwTYAxuZIcC977i9zrx5 hrwxYzsOQ6wHnwXZZmyqzk XcR3EPtbNOEmfyynLJi0GT qkPPOymTK7HNAkgTLqY3Rr NIImGQ0bgkd0RJO7IFwlVX PtAdA9DNOhxFYjKWBuzUod OXjss495OXH7AaMmRHJrks LcmWlkuC8bGfHdCBUPRFCb w9BtBTMqqVHnxL== SPECIAL STUDIES (test q7rfgWKgGFKiv5uhGJFeeO code = 3376) FuZzEwMzNcZnRuYmpcdWMx PGsxjlLhLUall1AcH8XtAm AwMFxhbnNpXGRlZmxhbmcx GLYzZSM3nlJpSJCvBSirRP BqJOmkCf0miUPglPkyNtKj QQWue3lfbnTBwneowPl2t2 iaHFAqEjM0fWKxDIweA9sc muXssIDeI8CchZKlbIe4q5 bbGrNgFmW4xHAwFPudT1bx nxTisESbQMMyJIu0pU61IR QbeN1laDPwCJkcdfBrQiH9 LKdnVJYqDaJ1PWFlvSHsOA PeH7xwKTVjRPyjFARrPMgu yQAcHHT3pFexr8M1pFVeiU DvuWyxGdBjRfUsYbWIo6Vp VIc9kDunU3CpDHHmNzI0kA QgUGFyYWdyYXBoIEZvbnQ7 cHdwquUnd50wnJLxQJHtNB LiHrGfnElfHRZvBHBGa6Ob cHqgKFG6tDo3hPtyMtnqQF N6Jcw5BI3giw58jtb3kIlw OYKnqoavGoS2HVbrMSDeia zrZIl7XEzlPLRezUJ5TOMm hEAcM9KxAAUcMH1tgno3OP L1EOgqKUTtSzR9FDFmzZLt UHWjwTudSUqsi771XAF0Jn WvGX1dE0Tcg5Y2fZ3hjWEa BYCsnKIyXfOiVDZsfp8ghL AlFHzrz1ZpVDM8mpR7wCTw vVRwRXBiKQ70Rdyhh0UzHp atm0VuS32hxKV0JDvoj2wz ID1dZpI2vdHbHSnum1icnX 8vTqK5GOwiXD7uTZ6iMQSe vT2ieorcBOQlViRisoasTJ ZghRafyhCzZa5ynDeoMST1 AExsM0ccmN6iRiY3JEfuK6 geoM9hPOr7RYvxbTG5VZYx tU8kTB2fegdig1pyVKawKI nsJIWwjtQ8mfU6KCCosRGw O5SdsK7kFNWlUV3sntolt2 qxKEF7LSsbNSArLUT5ZfUo TNXqz6Vvacr2UiWzt8TclS UjKMdnG44qs000ODUxgwRq Y7jpoYSqjojveGCdthpzIG ielaO1BMIcJFKfMFcmDFId XGZzMjJcbGFuZzEwMzNcaG ljaFxmMVxkYmNoXGYxXGxv O9qaWeKcV5CtSVOnMuOjED syFBhzrEMbnNVhlAS3jI2w EW7kIGYbdPFiV6YdVVXugr KuaDBrQQQ0mRMfuJBdOT9c YMdltXDzp8yxl1YtB3ngcV ofdYV7RE7dAKIbQJKoYWvs v3DfvF6gBszoiEDwfprpAD xmczIyXGxhbmcxMDMzXGhp M5qoZmIpPHJbhYgcJEerf4 NoXGYxXGNmMlxmczIyXGx0 cmNoXHBhclxwYXJccGxhaW 9xZhUyCaOzPtgjWB0wXNEp W8vdwTZbLHJoEFVjG4esTy MfuX5yjZjaEWjzKiZxBnTg OtHSp530uv5fFLLmgAVmbq AGxHVfgP5eIMtfJQbcTXek hYGaJCrrb3qvMEKep3f9hJ WaTUSzdsGhx4nsFHmrsbPj WJRbtXBysTNvULRmf59kON xqiCnevAlcMFXuz5NxgOyi x7QnLwUqIAtur8QbF99meN JvbCBzbGlkZXMgcnVuIGFs p33sk4zuNAKpAoV1tZLnlI I7fLXiqJOdy0CtzJpmWXUf t7wqEHYynv6yefnigZXfc7 OsdK6fbeuaSOqnjGDkrgMa UCJfp2w7fPXyETQpMKFqKY wjyCd9ZBDqc601ag2quoD5 mXPhQMZ8ETunLHGzXNGore UgZXZhbHVhdGVkXHBsYWlu XGYxXGZzMjJcbGFuZzEwMz NcaGljaFxmMVxkYmNoXGYx NXilP2wzHvQsC0MrAFMoJt SmmLPpL0xckIKnVELlQQat XGYxXGZzMjJcbGFuZzEwMz NcaGljaFxmMVxkYmNoXGYx UIhxK9ljPcJtH5WxARMoMq IgIFxwbGFpblxmMVxmczIy KQtqpeuuFUTtSLngM2ycFh RoWCNsoZvmMQqrs9UpJCOk PAJiRawiizQwBRq2vsPqAG BhclxwbGFpblxmMVxmczIy PZbhfeeoAPOwHZucR4drAx WcNQQqfQxrTRbij2KvLITv XGNmMlxmczIyIEltbXVub2 eni5GgG5owpAlkjNV5JHKb Y0iluHAjeHL5FNO0kV8nOK nsrvMgOWZjg9AjLNEgOIFb OqN0gX4nTQU8EhPByKdnQQ BsYWluXGYxXGZzMjJcbGFu ZzEwMzNcaGljaFxmMVxkYm JsEZYpXCiqP8toZlZmM1Lp ZTJnHzLrvJksCCypJVd0Kp xwbGFpblxmMVxmczIyXGxh hhsgOUIfGWbdX7jlXdZnYJ ZfeXebWKqhi9MhEBYwBLFx MlxmczIyIHMgTWVkaWNhbC QCOO61GYSvHNCrsOmppC2x oKYGARWfieP6l8Y2XRsqBV FaRFn0GNahcaCtZVGsiA7s RYWeRG3nPAn3knPmFDBpy1 McPV3nAGMwgXTnGYV1WPEu k2OzK6Iay1FgLZBvNXHitr 3jjdLrMiJBhBDcORCcsw52 EPRgJJ0fR7onEMDaTNZtcu TjzYCiw7GnNGZctND1yWZa NC8YKlEDm43pZRLyLKZUow CcUOKhjIdeaYL2maH3eQ5r LiBUaGUgRkRBIGhhcyBkZX Hwpl9kvgCpUGMrRNGtz0Il hJYscTAvwvVnJ9Fxp2RyWT Uosk04YBnqjQFcfg48JC6y P2Pch4VhbE2qYRluSCJvy0 GawGMivMIsONUub7SjB3rx vnkaQJplzLKxcN5fSCVfGV n7WVIci9TrBUVag6RzNzVh uxIfTDVvFUEaLSJuaW83BT C3hAzdhAxrvtKrRD5dQQYw iiMjJRQlPVZowL9kEDbmmx AyYZGrmsT0h9C9JMuoVHIc xbIiIeaaRPL5biCmacT9eQ IyQ1hnvlanUZxeSLMfw9Ub sP7noFKGlYQur8AwkHFwdT HIkTLeVD7xsiPxUU5fFAJ1 ODggKENMSUEtODgpIGFzIH B9HKsmUtthGVS3qkGrPWTt c8GmRNihJ4sqJ13vgDcuxB a5aKGhzQxrzEAxnNKuCTLq cbI1v1Q9XNPok9IdqasqJT BsYWluXGYyXGZzMjJcbGFu ZzEwMzNcaGljaFxmMlxkYm UyRGUuTZgfK0qtLeEbXnYy YhvaVGG9gF== Gross assessment was [facility] performed at ([facility], = 2777) Department of Pathology, [address] [place] [address], Technical component was [facility] performed at ([facility], = 2770) Department of Pathology, [address] [place] [id number], Professional component [facility] was performed at ([facility], code = 2779) Department of Pathology, [address] [place] [address], [facility] [id number] 12:54:33Surgical Pathology Report Case: [id number] Authorizing Provider: Khalif Green MD Collected: 06/22/2022 10:58 AM Ordering Location: [facility] Received: 06/22/2022 11:03 AM SERVICES Pathologist:Fatimah Marino MD Specimens: A) - Tumor, left parietal tumor B) - Tumor, left parietal tumor AFB and GMS stains show no acid- fast or fungal organisms.Addendum electronically signed by Fatimah Marino MD on 06/30/2022 at 12:54 PMA. 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 There is no significant mitotic activity or atypical features. Brain parenchyma is not present for evaluation. Foci of abundant lymphocytic inflammation are seen. A rare nonnecrotizing granuloma is seen on B2. Immunohistochemical stains (performed on block B4 with appropriate controls) show:- ENA: Positive- Ki67: Proliferative index of 4.4% (by manual calculation in 525 cells)The overall findings are most consistent with a meningioma, BONE CHAR OPERATOR WHO grade 1. Although there are foci of abundant lymphocytic inflammation, the degree of inflammatory infiltrate is not sufficient for the designation of l ymphoplasmacyte-rich meningioma. AFB and GMS stain will be performed on block B2 and reported in an addendum. Dr. Araceli Doherty reviewed the case and agrees with grade 1 meningioma.Block B4 has adequate tumor cellularity for additional ancillary studies.[id number], 12486, 45442, 52992, [id number] female with left parietal brain tumor.A. Tumor.The specimen received fresh for intraoperative consultation labeled with the patients information and "LEFT PARIETAL TUMOR" are 2 fragments of malone-pink tissue measuring 0.4 x 0.2 x 0.2 cm in aggregate. One piece is submitted entirely for frozen section in cassette FSA1. The remaining tissue is submitted entirely in cassette A2. B. Tumor.Received fresh labeled with the patient's name, medical record number and "tumor" is a 4 x 2.8 x 1 cm aggregate of multiple moser-white, slightly firm tissue fragments. The specimen is serially sectioned to reveal small areas of hemorrhage. Faculty Administrator sections are submitted in B1-B10.EUNICE Cowart PA ([facility])blending supervisor. Tumor.FSA. BRAIN, LEFT PARIETAL TUMOR, BIOPSY: - [...] evaluated Immunohistochemistry technical testing was performed at [facility], Pathology Laboratory where it was developed andits performance characteristics were determined. It has not been cleared or approved by the U.S. Food and Drug Administration. The FDA has determined that such clearance or approval is not necessary. The test is used for clinical purposes. It should not be regarded as investigational or for research. This laboratory is certified under the Clinical Laboratory Improvement Amendments of 1988 (CLIA-88) as qualified to perform high complexity clinical laboratory testing.[facility], Department of Pathology, [address] [place] [id number], [facility] of [facility], [address] [place] [address], [facility], [facility] of [facility]ology, [address] [place] [id number], Qwoohb [id number] 15:18:24 Test Item Value Reference Range Interpretation Comments Case Report (test code Surgical Pathology = 104) Report Case: [id number] Authorizing Provider: Khalif Green MD Collected: 06/22/2022 10:58 AM Ordering Location: [facility] Received: 06/22/2022 11:03 AM SERVICES Pathologist: Fatimah Marino MD Specimens: A) - Tumor, left parietal tumor B) - Tumor, left parietal tumor DIAGNOSIS (test code = [id number] 3220) FuZzEwMzNcZnRuYmpcdWMx IHtccnRmMVxlcGljOTYwMl tqlrNtVRSybIMtD0Rwczxx LAlbTB0eSQ0xdRqudWCwhT MgQONeXoVwy6puo263kDGu y9opWIFHiknjlZd2cSeoI9 2kk9U7TjlaA56xbVLzYCX3 XAPtVOQizUZjUUAjYTP5IU XlnGObZ2qfKDGjAD3nbtky EMfmHVqfRXNlqXT2HCTlkR MmR6MtJWVwYDleJFOpicb0 KiXpAq3ckEBzyYzsIVeiSD HhZQEpEKroVPYvTuLbHP1f YLUdWNlqIXKyMFB4ZBFqhb sgxPWtOTY1gV3aZPWoqL8w l7v4LRWfgka7NOBgHIURNG 1vennqu83rJOBOPiFcZ1mG WHyoHVNuEFE3SYKkJKTyo8 5cZZ31NMNqjstzXGChXl1l FFQjIBfyWNCzWLG7CKUivl yexMDnXWZ8qF0uEVNsbTZc o5vtfqxzdVGvRPFgBjXwXW 2hheaiL4pukNCfTUYRGtCM SU4dM8DbDYQtCVxkj7NtFR TkeF1siyCmgVGnCVLhFuQj CJPspfIavl9cWX7nE6BdlM u5fQ8mQUlnNW74uV1jMAce JOXmhHZcLB3lAYQWIXDsQJ HSJCKgm8IbfI0oDVLbweRu bmdccGFyXHBhcmRccGFyfX zshjRrVFidx4XgRBnfQVAr CB8vwOqeZCZrZR4wHZAtY5 sijF2ehjm5ErYnMLCpOjX2 YSLoiqC4Kcy8KOOkYHnrn4 wmc4OvYZCmMFb8pJeoSeFs YMFdw6colsCsXqVkJTNlAF FkYYGdqIOxW464q9cqj0fi zgBmkNE9KXQmDGV4FAljxe IawmC4FZmdgBXrGsU7LJca soEmNCsnfbGejhCyXzc2LE JkD700TCP1qRrer4srGIV4 JXBiBZRhKkQsMc3mmWDvA5 25DEPjAXJNJOLaeCi0EIQm grVoqoYduVSDl224E159m4 brEQIsgxIffDoBqxwkw4ip E573UUJewWWxiyWlMqQkSJ EpfMPsiXT4HPEmJJ0hqmtq FTcdHPncZIUhfgX9RWLfbR GtN4SfXQCzDI1ukcfaRXK0 EDkhUCJjNVA1ObRkQDJfw6 Hbjyy9KhNvlq2xxb63BUO5 k4OviExaYAM5AGW1VySpRd 6idCHjRWTwXH2jInRlqWJt NQVvex29qZreHWwcHWN3BR VulcUdf0Qvj3uaZrCaipXj X9nlW1DpWYJdNSYzEQUiDa GueiQpf2Cuq7DpmMAgxGt2 s4drUQChBNYbfBlhu8urGX W3TFMxiYIvZ8qkiG5bGAWm JT2uocohh3nqYBclPKsgAY DbgUV0khX5ZVStbQJyG2Un oF2qZNTlKRizCCCohrz0Qz UnQz6xjNShvWikXXvgRvmt YWdlXHBnbmNvbnRccGduZG VjXHBsYWluXHBsYWluXGYw XGZzMjRccWxcbGFuZzEwMz NcaGljaFxmMVxkYmNoXGYx IWrgA9rwVnTtJnWwPol9DU YzsSNcQFKtPtn3TUWefUGu WQFXnZfjjB0hAUAvtEwikO 6lmOJ4BWDvhsXoyXIVrW8s IIKUzE2zMyP3MDBrUfp2OA L3AfMumNSixH6= COMMENT (test code = l6owmOZgNQFcaTL3XhAiUD 3191) Llb0hqd9ZlfOLxyKGtNEwo hFWtdaKbgf45kTO6rA87HB 3nQFXkEuE3NWUqsxS6Och1 NHMsUXUeyZFiS621x4kke8 osgiXmvDR7oZhjEYUsdsbh TjT0BFovWHAeuiteCZt1BV haUJReoJD1WHOllCDjV8Om RMOuIN2nbkz8XCG3IFooLR DdOfD4LYKnzNUqLQVidLsw NLari186XHL8SwRvAJWqli VduChhhV3tBqWaYBUGVFP2 qC1edgLlgQ56LOPniOJpuO 9hi6LpGWsrVRumoyBnoIjw a73sHLJCqHEdLJCuomXvmt VgpHlfiQQkW3FfeHVvcZDi uIzbFDYreIh3hCP8RW5sWV H0nIGpJ4OqYRRlESG1hyPr KtXfIjQqrC7pfWNwXU6sbO cwZGZfkzQsx6MweCKcg9Qy pOCoz5RwRKIbsQEvaJdgeq 6cWOLoZ0gnh2AeMWI6zeHo duZbnAiszEngU6z2sIZtxT 6jrWJfmFE6uI2yEGFrVEGp KOTnBjTiIWQyVBPtKH4vfp 3dL4PsbDj9oK9aJWlxZS26 gL8yFCTkdmEzRTTcST4yJT MwOxHsFN8wtB0afLnnlN3l aGVtaWNhbCBzdGFpbnMgKH TkcrGfbu6oNOUsahRsyI3k prERSDD1rJGxDTMsoISmpK KlTGBpZTZrqpNmq4amTDCp sE49OoytYEZgFVVHQDW9JI Env1g5sLZaTFEqrzUhBDjk Pzc5YLBek8ldBnAcQWMhbo AfrN9oFTzre5DlAY19LNAt PoosgNNfqNWhDCTefLP8yR B6rC7qRHsqLEZhUKTtOLty cylccGFyXHBhciBUaGUgb3 AwpbSnbBYttU3atJ1zttAh eyNqxL3djXSpw61bcUC1AO 28DFwxsYgtOYQlIV0nmshf v91dZOEELlPtN6jMYGseNG FkVMSwJEBCmPEdc1OboQL0 oSQcICSyplUgRo1ywJNyLg TlSyTaKRTufLSuhX5ymU8t fXBhIqCmkwBpHU4yERApt7 5gMRHpVNPcHVutISJkl8Ef wR1lcTZliGR9k9I3QUssUh sktXKnnFNtcUCxtq78RPK6 QvXmK6ygckNxAa4oUFHtNE DxCUVxY15yzCdgyoFuFnOq vM9pkT4xbULdnZEhbFKvZX PbY0bxsGGbsF5ifM5nFI6n DZJIQOPzXXKAOEUyz5VfmR 9qs1mvxUFnOTFuUPGov2Kq QIDut97gFhrlL7udBwAaXO 3iZPYwqW9rrEQlDBdlTMLm YBDxCUImIJMhWoKUap4xFH ZinDJ1VGefjXlnqEGbWYZo zvviz9CoOHAvPWGoMXYqXC AhVGLiG2DjCJQfk4t9hSWs epOqHGXxEX5zmsmtZ2horO UcORNoxaquJVYpWchxH4mt KvPlsHFsVESkROE0DDYiZY W9jT9aWUFecJx8xWHhdAW9 IGZvciBhZGRpdGlvbmFsIG WwZ2svbZEmtOLynYGthFFv LlxwYXJccGFyZFxwYXJ9 CPT Code(s) (test code d3wnwNCbEAAjqUK3PpRqXO = 3357) Vsg8tzu5NbuGEhcUDmKIun aBCfnoMoak73vBT2pB80YF 4kNLWmUeL7IYEaglA9Utt6 WCNmMKMzbNMnU675d8sqw8 fbqwYipAN1tWfrWSIvfygf JzX0PSiuMJJkqjtaFSb6UP hfWDRzxBT6TWYlkOHjF2Aw IXBkPO8yqky6TWZ9JUdfIA WaFiN7HCPvlUOgBHCzyYnw OKrwx925QFM4LiOjJKJzju KygDgizK9tVzGrRFI1WHAd F5ggDQB8VYZjBNmjNUpeTI QpPVm4VqUbCBE7KUVqUxty XHBhcn0= CLINICAL HISTORY (test d2wiaTXwCVJntYR4XcGoTG code = 3356) Nxx8ttv0OikVEpfWPkXVng iQCbhsLivi89mLI8pX00OR 9hFHKxPwW1XKRutaV2Moq6 JKJdAJWieGMjA587x1srg8 shzuTguNA9bZhdJADzesxu DoA0VLagDRHojntbAEj3WQ cgSDBhxBK0ECJmkZNaQ7Bm RNUcUB7ybwh3SWW0AYydHE QiBkQ5JBHowMKwPHXlnPgk ROntt657IIV2YmQgNEWlva AurIjsjI4lSsQfZJC7BO90 ACEvFR1uXRLeQL6nnBVnb5 w8kYWcSEG4YOCxafipdMCw YLHuKNyqEPX7vH8eZzrvVN J9 GROSS DESCRIPTION (test v4fzsZYkLDUjqYDJGMXvW3 code = 4789449676) mykqYlXRDlhJFiD0Yhvkmy XGdvGO3sCW5xaJwclLHvsG MnTP0BGDMbHzQnXZPrpXNw tqUgPmAkVFWjeVSmdRO2MM TzNG5vyfwxSPvfUArlVJYn bxT8QHYqwEDcN5SnDPQgZU 3xjizbNWL7TYqfxS2mzpGY SeziUk6qpIYwoXuaZsHhHc NoYXJzZXQwXGZuaWwgQXJp EXk7oJ8HZpbuVOS6XDSBBu nuLKDyVT0Gc8krYSLuuGHz JMY7DVgfbULqTZAzDLXoJC q4CDRkVDbxhMPdCU0jyLfq EbuczFwsl0InyYTnMJxfTH WuOHPnJPriBXXgGB6CTpJe KIn3HrP5XlQsJWo0AGn5FG 2GWhUtNJHyFuUwWov9EENf YEa0BUtrXZ3NOPZ3VEAfWb Q7YbE6GWEoVKZmFXGvBhTk XGYgQXJpYWwgXFxmbCBcXG 9dtLhtmNSgdcRPQnKAaQ2j vv2kgSSiFB2TYUHdnFPQVE E3AH0zXQXYTmevsUXlEURa aFjkNHcabS2yMO0NHYu8mu NoXGZzMjAgVGhlIHNwZWNp cFWqBYKgO2OacyWiMEChUZ BfTZEfurXogkMcNG5xDEEk eDe6SSSpt03anAa9BCMfn3 0opJRpVSugKLD7oUNoBZNf RBIbHKOtXI73lpDkbhFqse 1hdGlvbiBhbmQgIkxFRlQg VKLAKRZIWXwbQTEZB6ItGB DbDOFxETCzUEwbGW67muWt PsK8MO6qwHivfoA2gIQkfO IsyBYfy5XeuV0gWHXgHJE9 IHYjEmP7PRMwZtLisWKsik AlH1vjRQrkrWOnAK6jTNNr nEPnDZLymvQzcTCejOD0JC XsRY12aGXwfFagDj8wMFXh i6nkwzYlCMM0aS9qAWmiOQ Ozl8IoaNQhLSMENSSkLICs KBYmBL9lsZ9xcztfwNkim6 BbKVfsSOH5Cu7cpNQdKEAs bnRpcmVseSBpbiBjYXNzZX C7EUICUo0iZPruhYeubH0w MEYtQ12iq6ROg3EyVJXnOG ecq2kjbEvig7KqzMNtNDsc NGFwmTFdHXpjnO7aNvWvx2 codPo6FAisvmF8RHQkpj0D ZjitFjtfkAaxf6LqvBUzUR lxCINaEXYiTDfwCJEuQI9G OyMyYXq9SkY9KoKyFTo9GO c7HY4IHvOoIZGbXwBhCdk2 NPLvOMv6ZClcRR2DQCS8MH lyWZg8GOZ1BTUyHNWjQPUb MiBcXGYgQXJpYWwgXFxmbC GzWZ8cpYcsqnS0NGIqOUwu BBBdMUB7gV3zPynnSHDgCH nkAMEyH03kz0WLt9HlCG4N HRm1rpJywuhdhL5nPSDjrp WrSYdhfZMgO5haIhHoHDMT ZWNlaXZlZCBmcmVzaCBsYW JlbGVkIHdpdGggdGhlIHBh tRffoqSmJ0X5qpJfDG3lUE GfKMOeB8YoMFAwT52kADYg sL8jSQZbTP6oIXS9qF0eqy YrxQSiHAR1UEffHi42TEoq TDUuhPKwR6szBFeicBXrl1 NauMIcrLwhdJRqU6QkxU11 qDv7VMldt6xoE5i5rDyqKg cixSW4rNTphOTnAoZaU05s bnRzLiAgVGhlIHNwZWNpbW AbDPqhNNWzzdhrhMf6BDCs I7Pxs30lTLV6fyXyGIBpNU dxa27mpZisCYLzLJElw4Zg yDVuv6AneTDfES3wYHBfmU Xyy5DwlKU0fJDrGMRwD4Mf y35gPGKmKIOexJNbfHX4SL VekH4bLkFoLvSnXqdxRGUw AAmwsNHiPX8HG7aapERnTN WKmcZ8uqwyQIoTPZSZVNEh CPUCCKcwyL7OZLQoKPibID KanBDMEUR4KE4lNJwaoJNh aiiiDGWhB6AfO9VudgNqnE CeHZArluCav5nyUYE4EJLk nJAymPSfJlMeCdpgNBO7HJ miq4xyCVF7JDAmjTIcqBQc FAblKrOqMcfeTZYnQ0NvF5 TzavE0OWe9 INTRAOPERATIVE z2jipLEjDQUcpVP7KzZwQU CONSULTATION (test code Pyy9quz2NbpPHedFNrJWxb = 5040149675) dEKqvtLzny97pQQ7tI34QG 2hMCPtJhY5XODylgV2Lyr2 RNZcQBWejPMbB116p5sxx1 decxBuiOG8fZizGYAnuwnr EqH3TGlpZEFowgyuJVs9UI frIDOouRF9SFChmHFwE5Ku XJJuLP8ovtm3CXG8QCkqPI QjUfN3CXWqkLJeAJBkkFyx BWrdz622ITY6VgWdYVEorz W6UNctBRLeY2BwT9QgWLhv GDT4YTDhSEAeVJXlREPpOQ CcXIwqiqH3f1moYYBbpXAn OWQ1VXbmnXUtRIUbCLNeUB miWlJZVtNmJoT0DSN6XUqx SgQ0PAr4LGGRCgNzEvNkCh S7QtR6MDSpYMt3RVi8PWfP KmC6Gll7StG3ZhHlCBBjKM BlHSc4SHJmBCbjgXMlWMUz CVSsRBtfDGgnQ37mmFnwjY 8zTqRlULPIAsDTdU2wpt6q cGFyXGZzMjAgRlNBLiBCUk FJTiwgTEVGVCBQQVJJRVRB QXBEMN7PJjvrFdkQTHDDOj saCTHxvIHbEM1hNJQirQ7j mF1lRKkcHFPpwOEaHGWscK 5iiQSdENG4XRSaEmGHkXP4 qzUJll5kHzSkOS5kFOLbSW DdCqIvPZLeGUO7FjFqdTec YPUrL1FlP7UmdaD9j6uhsO cmv8XjcAEuIQ7ndOIiwK== MICROSCOPIC DESCRIPTION d8bdvAKbSUVaiWM0OoIqVG (test code = 3371) Eim6akw7QeiUQyrWOsIPhj xQWevtIyek33fAA4gX30RT 8qFYXnDpX3UGQdovS4Moa4 DLEtVQLhnDMxA563b9wsn2 wlorMhvKR3pLtjUXOmukos IxD3MAsrPPCgspfxCVu4ER jhFBFfeYZ5KBRjrHShV3Pi RTLbHX1nbpp5CYV2IOwbNI MqFwA5WMZzkRWpDNQbgSst HNoxq462HOL4HlRiLNTmwo GteYiklS3vYnCqIHONPWQn c5SjQLTvtRTkjU== SPECIAL STUDIES (test k9tcpIMqTAWow3xfUHNlqW code = 3376) FuZzEwMzNcZnRuYmpcdWMx GDzxkeDqDWfla6OoZ8QsJh AwMFxhbnNpXGRlZmxhbmcx HYUdQPF6dpUxLALlUFpoLE CxPEtzSg8vkZGmlCijInZh TUUpy2gifsONgajvtHa7l2 maGXUuXsQ6dJYiXNkuX9hm klDdhBCbH9SnyBXwjTy4m7 vdQaSvXtQ9rBGgUQpbF6yv fvTevPByFYFzISq9dC95XW RxoN5ptBWeSVeasoDqUiO6 VHuhRITwCgU4QMZspGWiKJ VrN8mtYGCpEWyuMQCiVObw eFHvXBA6eSafl4F9qDZaoS RyqFndQyYvPcSdUlEPy5Pq KZo8sDebP2ZoTRUmMpO3cD QgUGFyYWdyYXBoIEZvbnQ7 uSqtbmPzo51wcDGdXKXxAQ PhMgZyfWzgWMLcBHZKq0Vg iFfaDTC0dYf6rHsuIuymQR Z5Vfp8IC9vzd69gkd2bGil CDAavebiQuS6MSkmGLUnsi nkVFr7DDwdIRSveGW2OSYb sSQnU9OqZWAfZQ0pwvs6WS A0BQmvNLXiNeL7UAEpcBYr QLFkiXqkIVkrp068MAV5Fa SyEU5jG5Orb5F7gL0hiNZe UKZgcLKoExQeCJYumv7vhU NyJEbcf2WjGBX4kgP5wPYg aAPvBFUqLU93Zoelg4ChTo whl7XaK01fvJH6GYkuq6mp AO8jCbF7huVpZFyhp7tmrJ 1xRaT6JUgrIP1wBC3uVHEx bT1vqpjdUQPwOhHofdrpHU MuwGbjmuIzWh8nnYewNJK0 BQxrK1czpZ8dZhO0ZWxaY3 ijuX6tCFi2ESzujJW0WCEy xF4tEW9yzfjog1zrBJzeXF xeZWAfwhU9yvJ9QGQlvAHo Y1CpmT8jNCAsXS5tnsqiq5 ffBND2BFdkKGNxNKM5YlSo VZCry1Izkzt4HqPqp1NbiO LaWYfiZ06en594JFGzyiIt E3opqXVtshwkwQDxlajjOU wnqoS8TVWbVMZmVOzzXLTh XGZzMjJcbGFuZzEwMzNcaG ljaFxmMVxkYmNoXGYxXGxv I5rhBtDzN6HhPSSsYsOfIW ioTTnclQSqoIDgzUD9zF5i LQ9fKGJkfDLeQ6UdCPQcus ZuhBFcLDS6gRQqoCVzKJ5r WPundAGoe9gie4MdE6itdZ dyuHS5JL6fVRAnLLMoPMbj v9GklF5dVyxjcFYkzvnmZV xmczIyXGxhbmcxMDMzXGhp K5viCeDgSFKtkIgeMBwny2 NoXGYxXGNmMlxmczIyXGx0 cmNoXHBhclxwYXJccGxhaW 4oNqUeZwHuGcfuYP8dZLJh J8nshMPkLADbJFMkY4niDb TelN5ueSlgJYvsAfTzTeEz ShUQz405by3vLNCqgTHcmd SEfNJqmV7sUEwzWIxgMGet zDGxGTiwo6qfHLCsk0a4pW MmKTKkkwNkj5ufQBiuihBu DGQwoTAlkOTyLNJir39pCH kgdXwxlAalCAIcd6PmvBnv l4RzZbWwQUljr8BdA92cnZ JvbCBzbGlkZXMgcnVuIGFs v23tm7goZRQhXcI1zMEqcL I8bPMrrAEmr8XtkTsrNHOt t2sdHAMzod9ydsangOVpa9 BeeB7uaajkLZoucNXpeyVw QWHth3f1yJLzBRGsTABfRG igaLu9CUPkp220wn1arfH2 hSCuTWP5BSimDSYwGRTvyb UgZXZhbHVhdGVkXHBsYWlu XGYxXGZzMjJcbGFuZzEwMz NcaGljaFxmMVxkYmNoXGYx YCydP5ukJxBpW4HhRWTwOq JtoTSuP9sfmBNfBXSiJZlt XGYxXGZzMjJcbGFuZzEwMz NcaGljaFxmMVxkYmNoXGYx RYszQ1ljPxMbG8QqCIXoGw IgIFxwbGFpblxmMVxmczIy YPkovpwfYEDwDOehU5ooSh AmVDBnwRvaNFxul3IxNYFz KYOcXgufkhNzQPi2cnIdDV BhclxwbGFpblxmMVxmczIy BRxaixinBWWnPVjzT3euGc IuRIGyuLplOQshf8EtCRBl XGNmMlxmczIyIEltbXVub2 hkn2VfZ5ornDhxmJR0QERd O4lcaOMptGN0EWC4oX7nCV feakUeFQFzy1PjYQRnQRKp UfT6iT7tYCX7ViWHgBgmTE BsYWluXGYxXGZzMjJcbGFu ZzEwMzNcaGljaFxmMVxkYm GjTRPsIQooQ8juRfGmH1An XTHgJkVytHdcUPniVJs9Qr xwbGFpblxmMVxmczIyXGxh bvrhLWMeODkwC7qkIlVxJT MhrPehGEcej0RzNXOgJFRh MlxmczIyIHMgTWVkaWNhbC IHOK09BBWkASNsjKtodH3l sLWQEUImnkR9p2S4ASppWO GgSIp8PLvhviSqUSSlhH9k OUBfHD7eOMx6ojAsKMVpx6 NtYG9jGUNtjPMiNOD2QYSq w9GcL0Jny8BfOVTnVEMblt 4gnwRoXgIKrJQyETKwpb25 HCDvES6cZ9kyJEKoDEEjmv AueBIxx4CbVGQinMT9aCGc US2SIrQAv96jOBQjAHMDfx ByRVGegDpoyTY8ewT3gY4s LiBUaGUgRkRBIGhhcyBkZX Wwhx4iipVxFVTfFGRkq6Zw oLGaoZJewqOnQ7Ifz0ClLK Twct01ARfvrTOjqf93QY6w P7Rjo9SpkM5zAErrLEJqb0 VexUOrxREaEZCrd9JgB5gp qjflPHzapWFxkG3fWXAiRK s8GWUfc4PaOMEyf0CxPjLd acCeNABfSNYzRMLeeA69VU Y4yFyzpUbjfqQnBG9nFRPz myRpXPPqAOLbbW4yMHlsie DuIYIfyeT5x0J0FXouMSEd ciIhUooeDDV4lcPjpwJ1tE AnX1uzhrwbPGscKNUwv0Pi oO8taBDRjMZbf3KhvVZthH UZiVEaHY9ffxHxNZ9pIKG5 ODggKENMSUEtODgpIGFzIH G6CZrdCuptUTS2bjHvPHCg n4QzOZlwL5wlA15hxOuoaQ r5kSUdfGaufJVmiPTuRRGl bqP5d6S2BBUjm3LdudheTW BsYWluXGYyXGZzMjJcbGFu ZzEwMzNcaGljaFxmMlxkYm ZtBPLbTOxcO4vvQcCxEiUg HzeeAUD4dK== Gross assessment was [facility] performed at ([facility], = 2777) Department of Pathology, [address] [place] [address], Technical component was [facility] performed at ([facility], = 2778) Department of Pathology, [address] [place] [address] 88[address], Professional component [facility] was performed at ([facility], code = 2779) Department of Pathology, [address] [place] [address], [facility]-Glucose [id number] 12:23:00 Test Item Value Reference Range Interpretation Comments POC-Glucose Meter (test 94 mg/dL 70-110 : TE STED AT [facility] code = 1538) [address] [place] [address], 770 30: Physician Executive/Techni amirah ID = [id number] for Miller, And hali Lab Interpretation (test Normal code = 65488-6) [facility]-Glucose [id number] 12:23:00 Test Item Value Reference Range Interpretation Comments POC-Glucose Meter (test 94 mg/dL 70-110 : TE STED AT [facility] code = 1538) [address] [place] [address], 770 30: Physician Executive/Techni amirah ID = [id number] for Miller, And hali Lab Interpretation (test Normal code = 51186-7) [facility]-Glucose [id number] 12:23:00 Test Item Value Reference Range Interpretation Comments POC-Glucose Meter (test 94 mg/dL 70-110 : TE STED AT [facility] code = 1538) [address] [place] [address], 770 30: Physician Executive/Techni amirah ID = [id number] for Mliler, And hali Lab Interpretation (test Normal code = 06085-7) [facility] [id number] 12:23:00 Test Item Value Reference Range Interpretation Comments POC-Glucose Meter (test 94 mg/dL 70-110 : TE STED AT [facility] code = 1538) [address] [place] [address], 770 30: Physician Executive/Techni amirah ID = [id number] for Miller, And hali Lab Interpretation (test Normal code = 62254-6) [facility] [id number] 12:23:00 Test Item Value Reference Range Interpretation Comments POC-Glucose Meter (test 94 mg/dL 70-110 : TE STED AT [facility] code = 1538) [address] [place] [address], 770 30: Physician Executive/Techni amirah ID = [id number] for Miller, And hali Lab Interpretation (test Normal code = 13656-1) [facility] [id number] 12:23:00 Test Item Value Reference Range Interpretation Comments POC-Glucose Meter (test 94 mg/dL 70-110 : TE STED AT [facility] code = 1538) [address] [place] [address], 770 30: Physician Executive/Techni amirah ID = [id number] for Miller, And hali Lab Interpretation (test Normal code = 64195-5) [facility] [id number] 12:23:00 Test Item Value Reference Range Interpretation Comments POC-Glucose Meter (test 94 mg/dL 70-110 : TE STED AT [facility] code = 1538) [address] [place] [address], 770 30: Physician Executive/Techni amirah ID = [id number] for Miller, And hali Lab Interpretation (test Normal code = 36901-1) [facility] [id number] 12:23:00 Test Item Value Reference Range Interpretation Comments POC-Glucose Meter (test 94 mg/dL 70-110 : TE STED AT [facility] code = 1538) [address] [facility], 770 30: Physician Executive/Techni amirah ID = [id number] for Miller, And hali Lab Interpretation (test Normal code = 78732-8) [facility] [id number] 12:23:00 Test Item Value Reference Range Interpretation Comments POC-Glucose Meter (test 94 mg/dL 70-110 : TE STED AT [facility] code = 1538) [address] [facility], 770 30: Physician Executive/Techni amirah ID = [id number] for Miller, And hali Lab Interpretation (test Normal code = 00547-0) [facility] [id number] 12:23:00 Test Item Value Reference Range Interpretation Comments POC-GLUCOSE METER 94 mg/dL 70-110 : TESTED A T [facility] 6720 (BEAKER) (test code = [facility], 153) 12416: Physician Executive/Techni amirah ID = [id number] for Omer Degroot POCT-GLUCOSE [id number] 08:32:34 Test Item Value Reference Range Interpretation Comments POC-GLUCOSE METER 76 mg/dL 70-110 : TESTED A T [facility] 6720 (BEAKER) (test code = [facility], 153) 90148: Physician Executive/Techni amirah ID = [id number] for Omer Degroot BASIC METABOLIC [id number] 05:16:33 Test Item Value Reference Range Interpretation [...] (test code = 697) EGFR (BEAKER) 113 Interpretati on of eGFR (test code = mL/min/1.73 values [...] not appl icable for dialysis patien ts Physician Executive ID - KIMBERLY [id number] 05:16:33 Test Item Value Reference Range Interpretation Comments MAGNESIUM (BEAKER) (test code = 1.9 mg/dL 1.6-2.6 627) Physician Executive ID - KIMBERLY [id number] 05:16:33 Test Item Value Reference Range Interpretation Comments PHOSPHORUS (BEAKER) (test code = 3.2 mg/dL 2.3-4.7 604) Physician Executive ID - KIMBERLY LCBC W/PLT COUNT & AUTO [id number] 04:35:11 Test Item Value Reference Range Interpretation [...] (BEAKER) (test code = 2801) MR, BRAIN, [id number] 13:01:00Unlisted Reason for Exam - Click Yes and Enter Reason Below->[facility] 1975 Sex: FFINAL REPORT [...] Ramon MDReport Verified Date/Time: 06/23/2022 13:01:42 HEMOGLOBIN [id number] 10:54:21 Test Item Value Reference Range Interpretation Comments HEMOGLOBIN A1C 4.9 % See_Comment [Automated m essage] ELECTROPHORESIS (Stampt) The system which (test code = 3811) generated this result transmitted ref erence range: <=5.6%. The reference range was not used to int erpret this result as normal/abnormal . "The A1c is measured using a NGSP-certified method. HbA1c value equal to or greater than 6.5% as thediagnosis cutoff for diabetes. An HbA1c value of 5.7- 6.4% indicates increased risk for diabetes (prediabetes)."T4, [id number] 06:04:50 Test Item Value Reference Range Interpretation Comments FREE T4 (BEAKER) (test code = 655) 1.10 ng/dL 0.70-1.48 Physician Executive ID - LYSSA-CoV2/RT-PCR (Asymptomatic ONLY)2022-06-23 05:56:03 Test Item Value Reference Interpretation Comments Range SARS-COV2/RT-PCR Negative Negative The SARS-Co V-2 (test code = target nucleic 76359-6) acids are not detected in thi s [...] rapid, real-darren e RT-PCR test intended for e qualitative detection of nucleic acid fr [...] revoked sooner. Fact Sheet for Healthcare Providers: https://www.Kimeng[employer]/Documents/Xp ert%20Xpress%20SAR S%20CoV-2/Fact%20S heets/302-3802%20S ARS-COV-2%20HEALTH CARE%20PROVIDERS%2 0FACT%20SHEET.pdf Fact Sheet for Healthcare Patients: https://www.[employer]/Documents/Xp ert%20Xpress%20SAR S%20CoV-2/Fact%20S heets/302-3801%20S ARS-COV-2%20PATIEN T%20FACT%20SHEET.p df Lab Interpretation Normal (test code = 81437-2) [facility]23 05:56:03 Test Item Value Reference Interpretation Comments Range SARS-COV2/RT-PCR Negative Negative The SARS-Co V-2 (test code = target nucleic 24197-3) acids are not detected in thi s [...] revoked sooner. Fact Sheet for Healthcare Providers: https://www.[employer]/Documents/Xp ert%20Xpress%20SAR S%20CoV-2/Fact%20S heets/302-3802%20S ARS-COV-2%20HEALTH CARE%20PROVIDERS%2 0FACT%20SHEET.pdf Fact Sheet for Healthcare Patients: https://www.[employer]/Documents/Xp ert%20Xpress%20SAR S%20CoV-2/Fact%20S heets/302-3801%20S ARS-COV-2%20PATIEN T%20FACT%20SHEET.p df Lab Interpretation Normal (test code = 52711-5) [facility]2022-06-23 05:56:03 Test Item Value Reference Interpretation Comments Range SARS-COV2/RT-PCR Negative Negative The SARS-Co V-2 (test code = target nucleic 33228-8) acids are not detected in thi s [...] om SARS-CoV-2 in a nasopharyngeal swab specimen colle manan from individual s suspected of COVID-19 [...] revoked sooner. Fact Sheet for Healthcare Providers: https://www.[employer]/Documents/Xp ert%20Xpress%20SAR S%20CoV-2/Fact%20S heets/302-3802%20S ARS-COV-2%20HEALTH CARE%20PROVIDERS%2 0FACT%20SHEET.pdf Fact Sheet for Healthcare Patients: https://www.[employer]/Documents/Xp ert%20Xpress%20SAR S%20CoV-2/Fact%20S heets/302-3801%20S ARS-COV-2%20PATIEN T%20FACT%20SHEET.p df Lab Interpretation Normal (test code = 49669-7) [facility]2022-06-23 05:56:03 Test Item Value Reference Interpretation Comments Range SARS-COV2/RT-PCR Negative Negative The SARS-Co V-2 (test code = target nucleic 77513-1) acids are not detected in thi s [...] om SARS-CoV-2 in a nasopharyngeal swab specimen colle manan from individual s suspected of COVID-19 [...] revoked sooner. Fact Sheet for Healthcare Providers: https://www.[employer]/Documents/Xp ert%20Xpress%20SAR S%20CoV-2/Fact%20S heets/302-3802%20S ARS-COV-2%20HEALTH CARE%20PROVIDERS%2 0FACT%20SHEET.pdf Fact Sheet for Healthcare Patients: https://www.[employer]/Documents/Xp ert%20Xpress%20SAR S%20CoV-2/Fact%20S heets/302-3801%20S ARS-COV-2%20PATIEN T%20FACT%20SHEET.p df Lab Interpretation Normal (test code = 95743-2) [facility]2022-06-23 05:56:03 Test Item Value Reference Interpretation Comments Range SARS-COV2/RT-PCR Negative Negative The SARS-Co V-2 (test code = target nucleic 99332-4) acids are not detected in thi s [...] om SARS-CoV-2 in a nasopharyngeal swab specimen colle manan from individual s suspected of COVID-19 [...] revoked sooner. Fact Sheet for Healthcare Providers: https://www.[employer]/Documents/Xp ert%20Xpress%20SAR S%20CoV-2/Fact%20S heets/302-3802%20S ARS-COV-2%20HEALTH CARE%20PROVIDERS%2 0FACT%20SHEET.pdf Fact Sheet for Healthcare Patients: https://www.[employer]/Documents/Xp ert%20Xpress%20SAR S%20CoV-2/Fact%20S heets/302-3801%20S ARS-COV-2%20PATIEN T%20FACT%20SHEET.p df Lab Interpretation Normal (test code = 24622-4) [facility]2022-06-23 05:56:03 Test Item Value Reference Interpretation Comments Range SARS-COV2/RT-PCR Negative Negative The SARS-Co V-2 (test code = target nucleic 47669-4) acids are not detected in thi s [...] revoked sooner. Fact Sheet for Healthcare Providers: https://www.[employer]/Documents/Xp ert%20Xpress%20SAR S%20CoV-2/Fact%20S heets/302-3802%20S ARS-COV-2%20HEALTH CARE%20PROVIDERS%2 0FACT%20SHEET.pdf Fact Sheet for Healthcare Patients: https://wwwFree [employer]/Documents/Xp ert%20Xpress%20SAR S%20CoV-2/Fact%20S heets/302-3801%20S ARS-COV-2%20PATIEN T%20FACT%20SHEET.p df Lab Interpretation Normal (test code = 99339-6) [facility]2022-06-23 05:56:03 Test Item Value Reference Interpretation Comments Range SARS-COV2/RT-PCR Negative Negative The SARS-Co V-2 (test code = target nucleic 46455-7) acids are not detected in thi s [...] revoked sooner. Fact Sheet for Healthcare Providers: https://www.[employer]/Documents/Xp ert%20Xpress%20SAR S%20CoV-2/Fact%20S heets/302-3802%20S ARS-COV-2%20HEALTH CARE%20PROVIDERS%2 0FACT%20SHEET.pdf Fact Sheet for Healthcare Patients: https://www.[employer]/Documents/Xp ert%20Xpress%20SAR S%20CoV-2/Fact%20S heets/302-3801%20S ARS-COV-2%20PATIEN T%20FACT%20SHEET.p df Lab Interpretation Normal (test code = 31545-2) [facility]2022-06-23 05:56:03 Test Item Value Reference Interpretation Comments Range SARS-COV2/RT-PCR Negative Negative The SARS-Co V-2 (test code = target nucleic 82416-3) acids are not detected in thi s [...] revoked sooner. Fact Sheet for Healthcare Providers: https://www.[employer]/Documents/Xp ert%20Xpress%20SAR S%20CoV-2/Fact%20S heets/302-3802%20S ARS-COV-2%20HEALTH CARE%20PROVIDERS%2 0FACT%20SHEET.pdf Fact Sheet for Healthcare Patients: https://wwwFree [employer]/Documents/Xp ert%20Xpress%20SAR S%20CoV-2/Fact%20S heets/302-3801%20S ARS-COV-2%20PATIEN T%20FACT%20SHEET.p df Lab Interpretation Normal (test code = 65937-6) [facility]2022-06-23 05:56:03 Test Item Value Reference Interpretation Comments Range SARS-COV2/RT-PCR Negative Negative The SARS-Co V-2 (test code = target nucleic 47679-0) acids are not detected in thi s [...] revoked sooner. Fact Sheet for Healthcare Providers: https://www.[employer]/Documents/Xp ert%20Xpress%20SAR S%20CoV-2/Fact%20S heets/302-3802%20S ARS-COV-2%20HEALTH CARE%20PROVIDERS%2 0FACT%20SHEET.pdf Fact Sheet for Healthcare Patients: https://www.[employer]/Documents/Xp ert%20Xpress%20SAR S%20CoV-2/Fact%20S heets/302-3801%20S ARS-COV-2%20PATIEN T%20FACT%20SHEET.p df Lab Interpretation Normal (test code = 26347-6) [facility])2022-06-23 05:56:03 Test Item Value Reference Range Interpretation Comments SARS-COV2/RT-PCR Negative Negative The SARS-Co V-2 target (test code = nucleic acids a re not 1473210) detected in thi s specimen. Negative result [...] revoked sooner. Fact Sheet for Healthcare Providers: https://[employer]udini.Bellab[employer]/Documents/Xpert%20Xpress%20SARS%20CoV-2/Fact%20Sheets/302-3802%47IGDY-PLM-2%20 HEALTHCARE%20PROVIDERS%20FACT%20SHEET.pdf Fact Sheet for Healthcare Patients: https://www.[employer]/Documents/Xpert%20Xp ress%20SARS%20CoV-2/Fact%20Sheets/302-3801%62XKRZ-BGD-0%20PATIENT%20FACT%20SHEET .pdfPOCT-GLUCOSE [id number] 05:42:25 Test Item Value Reference Range Interpretation Comments POC-GLUCOSE METER 125 mg/dL 70-110 H : TESTED A T [facility] 6720 (BEAKER) (test code = [place], 1538) [address]: Physician Executive/Techni amirah ID = [id number] for Yfn Ivy TSH/FREE T4 IF [id number] 05:30:00 Test Item Value Reference Range Interpretation Comments THYROID STIMULATING HORMONE 0.291 uIU/mL 0.350-4.940 L (BEAKER) (test code = 772) Physician Executive ID - MARCOBASIC METABOLIC [id number] 05:14:18 Test Item Value Reference Range Interpretation [...] not appl icable for dialysis patien ts Physician Executive ID - ADMINHEPATIC FUNCTION [id number] 05:14:18 Test Item Value Reference Range Interpretation [...] Specimen slightly (test code = 347) hemolyzed Physician Executive ID - [id number] 05:14:17 Test Item Value Reference Range Interpretation Comments MAGNESIUM (BEAKER) 2.2 mg/dL 1.6-2.6 Specimen slightly (test code = 627) hemolyzed Physician Executive ID - [id number] 05:14:17 Test Item Value Reference Range Interpretation Comments PHOSPHORUS (BEAKER) 3.8 mg/dL 2.3-4.7 Specimen slightly (test code = 604) hemolyzed Physician Executive ID - [id number] 04:58:13 Test Item Value Reference Range Interpretation [...] 0-0 (BEAKER) (test code = 413) CALCIUM, [id number] 04:31:34 Test Item Value Reference Range Interpretation Comments CALCIUM IONIZED (BEAKER) (test 1.11 mmol/L 1.12-1.27 L code = 698) PH, BLOOD (BEAKER) (test code = 7.40 1810) Lactic Acid, [id number] 00:33:54 Test Item Value Reference Range Interpretation Comments Lactate, Art (test code = 0.5 mmol/L 0.5-2.2 2874) ANNY (test code = ANNY) Physician Executive ID - ADMIN Lab Interpretation (test Normal code = 99751-3) [facility], [id number] 00:33:54 Test Item Value Reference Range Interpretation Comments Lactate, Art (test code = 0.5 mmol/L 0.5-2.2 2874) ANNY (test code = ANNY) Physician Executive ID - ADMIN Lab Interpretation (test Normal code = 71072-8) [facility], [id number] 00:33:54 Test Item Value Reference Range Interpretation Comments Lactate, Art (test code = 0.5 mmol/L 0.5-2.2 2874) ANNY (test code = ANNY) Physician Executive ID - ADMIN Lab Interpretation (test Normal code = 64418-8) [facility], [id number] 00:33:54 Test Item Value Reference Range Interpretation Comments Lactate, Art (test code = 0.5 mmol/L 0.5-2.2 2874) ANNY (test code = ANNY) Physician Executive ID - ADMIN Lab Interpretation (test Normal code = 77835-1) [facility], [id number] 00:33:54 Test Item Value Reference Range Interpretation Comments Lactate, Art (test code = 0.5 mmol/L 0.5-2.2 2874) ANNY (test code = ANNY) Physician Executive ID - ADMIN Lab Interpretation (test Normal code = 07242-3) [facility], [id number] 00:33:54 Test Item Value Reference Range Interpretation Comments Lactate, Art (test code = 0.5 mmol/L 0.5-2.2 2874) ANNY (test code = ANNY) Physician Executive ID - ADMIN Lab Interpretation (test Normal code = 22779-6) [facility] CenterL[facility], [id number] 00:33:54 Test Item Value Reference Range Interpretation Comments Lactate, Art (test code = 0.5 mmol/L 0.5-2.2 2874) ANNY (test code = ANNY) Physician Executive ID - ADMIN Lab Interpretation (test Normal code = 75441-3) [facility] CenterL[facility], [id number] 00:33:54 Test Item Value Reference Range Interpretation Comments Lactate, Art (test code = 0.5 mmol/L 0.5-2.2 2874) ANNY (test code = ANNY) Physician Executive ID - ADMIN Lab Interpretation (test Normal code = 82121-1) [facility] CenterL[facility], [id number] 00:33:54 Test Item Value Reference Range Interpretation Comments Lactate, Art (test code = 0.5 mmol/L 0.5-2.2 2874) ANNY (test code = ANNY) Physician Executive ID - ADMIN Lab Interpretation (test Normal code = 31342-9) [facility] CenterLACTIC ACID, [id number] 00:33:54 Test Item Value Reference Range Interpretation Comments LACTATE BLOOD ARTERIAL (2) 0.5 mmol/L 0.5-2.2 (BEAKER) (test code = 2874) Physician Executive ID - ADMINPOCT-GLUCOSE [id number] 23:58:50 Test Item Value Reference Range Interpretation Comments POC-GLUCOSE METER 123 mg/dL 70-110 H : TESTED A T [facility] 6720 (BEAKER) (test code = [place], 1538) [address]: Physician Executive/Techni amirah ID = [id number] for Yfn Ivy LACTIC ACID, [id number] 21:10:45 Test Item Value Reference Range Interpretation Comments LACTATE BLOOD ARTERIAL (2) 4.4 mmol/L 0.5-2.2 HH (BEAKER) (test code = 2874) Physician Executive ID - BSBlood gas, [id number] 20:53:18 Test Item Value Reference Range Interpretation Comments pH, Arterial (test code 7.31 7.35-7.45 L = 2744-1) pCO2, Arterial (test 40 See_Comment [Autom ated code = 2019-8) message] The system which generated this result [...] 32 Lab Interpretation Abnormal (test code = 59934-2) [facility] Center[facility], [id number] 20:53:18 Test Item Value Reference Range Interpretation [...] 32 Lab Interpretation Abnormal (test code = 06889-6) [facility] gas, [id number] 20:53:18 Test Item Value Reference Range Interpretation [...] 32 Lab Interpretation Abnormal (test code = 13113-8) [facility], [id number] 20:53:18 Test Item Value Reference Range Interpretation [...] 32 Lab Interpretation Abnormal (test code = 28140-8) [facility] Center[facility], [id number] 20:53:18 Test Item Value Reference Range Interpretation [...] 32 Lab Interpretation Abnormal (test code = 47969-3) [facility] CenterBlood [facility], [id number] 20:53:18 Test Item Value Reference Range Interpretation [...] 32 Lab Interpretation Abnormal (test code = 03569-0) [facility] Center[facility], [id number] 20:53:18 Test Item Value Reference Range Interpretation [...] 32 Lab Interpretation Abnormal (test code = 20857-4) [facility] CenterBlood [facility], [id number] 20:53:18 Test Item Value Reference Range Interpretation [...] 32 Lab Interpretation Abnormal (test code = 78350-8) [facility] Center[facility], [id number] 20:53:18 Test Item Value Reference Range Interpretation [...] = 8310-5) FIO2 (test code = 1819) 32.0 Lab Interpretation Abnormal (test code = 41511-0) [facility], [id number] 20:53:18 Test Item Value Reference Range Interpretation [...] code = 1819) 32.0 CT, BRAIN, WITHOUT [id number] 20:46:00Reason for Exam (Free Text) - Addiitonal information for Radiologist->post op new seizure [facility] : 1975 Sex: FFINAL REPORT [...] recommended for further characterization. Signed: Aparna Ramon MDRepjohn j. [facility] Verified Date/Time: 06/22/2022 20:46:57 Electronically [...] (test code = 347) EGFR (BEAKER) 105 Interpretati on of eGFR (test code = 1092) mL/min/1.73 [...] not appl icable for dialysis patien ts Physician Executive ID - [id number] 20:18:01 Test Item Value Reference Range Interpretation Comments MAGNESIUM (BEAKER) (test code = 1.6 mg/dL 1.6-2.6 627) Physician Executive ID - [id number] 20:18:01 Test Item Value Reference Range Interpretation Comments PHOSPHORUS (BEAKER) (test code = 3.9 mg/dL 2.3-4.7 604) Physician Executive ID - [id number] TIME/[id number] 19:59:22 Test Item Value Reference Range Interpretation [...] (BEAKER) (test code = 413) BLOOD GAS, [id number] 19:29:28 Test Item Value Reference Range Interpretation [...] (BEAKER) (test code = 1819) 100.0 Potassium-Stat [id number] 14:52:37 Test Item Value Reference Range Interpretation Comments Potassium (test code = 2823-3) 3.4 meq/L 3.6-5.5 L Lab Interpretation (test code = Abnormal 08978-7) [facility] CenterPot[facility] [id number] 14:52:37 Test Item Value Reference Range Interpretation Comments Potassium (test code = 2823-3) 3.4 meq/L 3.6-5.5 L Lab Interpretation (test code = Abnormal 34151-8) [facility] Center[facility]assium[facility]Stat [id number] 14:52:37 Test Item Value Reference Range Interpretation Comments Potassium (test code = 2823-3) 3.4 meq/L 3.6-5.5 L Lab Interpretation (test code = Abnormal 14322-9) [facility] [id number] 14:52:37 Test Item Value Reference Range Interpretation Comments Potassium (test code = 2823-3) 3.4 meq/L 3.6-5.5 L Lab Interpretation (test code = Abnormal 20625-9) [facility] [id number] 14:52:37 Test Item Value Reference Range Interpretation Comments Potassium (test code = 2823-3) 3.4 meq/L 3.6-5.5 L Lab Interpretation (test code = Abnormal 69025-8) [facility] [id number] 14:52:37 Test Item Value Reference Range Interpretation Comments Potassium (test code = 2823-3) 3.4 meq/L 3.6-5.5 L Lab Interpretation (test code = Abnormal 92514-4) [facility] [id number] 14:52:37 Test Item Value Reference Range Interpretation Comments Potassium (test code = 2823-3) 3.4 meq/L 3.6-5.5 L Lab Interpretation (test code = Abnormal 15993-8) [facility] [id number] 14:52:37 Test Item Value Reference Range Interpretation Comments Potassium (test code = 2823-3) 3.4 meq/L 3.6-5.5 L Lab Interpretation (test code = Abnormal 79822-5) [facility] [id number] 14:52:37 Test Item Value Reference Range Interpretation Comments Potassium (test code = 2823-3) 3.4 meq/L 3.6-5.5 L Lab Interpretation (test code = Abnormal 74841-3) [facility] CenterBL[facility], [id number] 14:52:37 Test Item Value Reference Range Interpretation [...] (BEAKER) (test code = 1819) 50.0 POTASSIUM-STAT [id number] 14:52:37 Test Item Value Reference Range Interpretation Comments POTASSIUM (BEAKER) (test code = 3.4 meq/L 3.6-5.5 L 379) STAT-LAB IONIZED [id number] 14:52:16 Test Item Value Reference Range Interpretation Comments FILTER IONIZED CALCIUM (BEAKER) 0.98 nnol/L (test code = 1854) Reference Range: No NormalsHGB/HCT (H&H)-Stat [id number] 14:51:59 Test Item Value Reference Range Interpretation Comments Hemoglobin (test code = 12.3 See_Comment [Au tomated message] 718-7) The system [employer] generated this result transmitted ref erence range: 12.0 - 1 5.0 GM/DL. The refe rence range was not u sed to interpret this result as normal/abnor mal. Hematocrit (test code = 36.0 % 36.0-45.0 4544-3) Lab Interpretation (test Normal code = 95573-5) [facility] [id number] 14:51:59 Test Item Value Reference Range Interpretation Comments Hemoglobin (test code = 12.3 See_Comment [Au tomated message] 228-7) The system [employer] generated this result transmitted ref erence range: 12.0 - 1 5.0 GM/DL. The refe rence range was not u sed to interpret this result as normal/abnor mal. Hematocrit (test code = 36.0 % 36.0-45.0 4544-3) Lab Interpretation (test Normal code = 22733-6) [facility] [id number] 14:51:59 Test Item Value Reference Range Interpretation Comments Hemoglobin (test code = 12.3 See_Comment [Au Safendated message] 398-7) The system [employer] generated this result transmitted ref erence range: 12.0 - 1 5.0 GM/DL. The refe rence range was not u sed to interpret this result as normal/abnor mal. Hematocrit (test code = 36.0 % 36.0-45.0 4544-3) Lab Interpretation (test Normal code = 67578-5) [facility] [id number] 14:51:59 Test Item Value Reference Range Interpretation Comments Hemoglobin (test code = 12.3 See_Comment [Au tomated message] 858-7) The system [employer] generated this result transmitted ref erence range: 12.0 - 1 5.0 GM/DL. The refe rence range was not u sed to interpret this result as normal/abnor mal. Hematocrit (test code = 36.0 % 36.0-45.0 4544-3) Lab Interpretation (test Normal code = 74468-4) [facility] [id number] 14:51:59 Test Item Value Reference Range Interpretation Comments Hemoglobin (test code = 12.3 See_Comment [Au tomated message] 518-7) The system [employer] generated this result transmitted ref erence range: 12.0 - 1 5.0 GM/DL. The refe rence range was not u sed to interpret this result as normal/abnor mal. Hematocrit (test code = 36.0 % 36.0-45.0 4544-3) Lab Interpretation (test Normal code = 19598-0) [facility] [id number] 14:51:59 Test Item Value Reference Range Interpretation Comments Hemoglobin (test code = 12.3 See_Comment [Au tomated message] 848-7) The system [employer] generated this result transmitted ref erence range: 12.0 - 1 5.0 GM/DL. The refe rence range was not u sed to interpret this result as normal/abnor mal. Hematocrit (test code = 36.0 % 36.0-45.0 4544-3) Lab Interpretation (test Normal code = 04738-8) [facility] [id number] 14:51:59 Test Item Value Reference Range Interpretation Comments Hemoglobin (test code = 12.3 See_Comment [Au tomated message] 918-7) The system [employer] generated this result transmitted ref erence range: 12.0 - 1 5.0 GM/DL. The refe rence range was not u sed to interpret this result as normal/abnor mal. Hematocrit (test code = 36.0 % 36.0-45.0 4544-3) Lab Interpretation (test Normal code = 94644-8) [facility] [id number] 14:51:59 Test Item Value Reference Range Interpretation Comments Hemoglobin (test code = 12.3 See_Comment [Au tomated message] 698-7) The system [employer] generated this result transmitted ref erence range: 12.0 - 1 5.0 GM/DL. The refe rence range was not u sed to interpret this result as normal/abnor mal. Hematocrit (test code = 36.0 % 36.0-45.0 4544-3) Lab Interpretation (test Normal code = 23499-0) [facility]Stat [id number] 14:51:59 Test Item Value Reference Range Interpretation Comments Hemoglobin (test code = 12.3 See_Comment [Au tomated message] 718-7) The system [employer] generated this result transmitted ref erence range: 12.0 - 1 5.0 GM/DL. The refe rence range was not u sed to interpret this result as normal/abnor mal. Hematocrit (test code = 36.0 % 36.0-45.0 4544-3) Lab Interpretation (test Normal code = 77353-0) [facility] - STAT [id number] 14:51:59 Test Item Value Reference Range Interpretation Comments HEMOGLOBIN (BEAKER) (test code = 12.3 GM/DL 12.0-15.0 410) HEMATOCRIT (BEAKER) (test code = 36.0 % 36.0-45.0 411) Glucose-Stat [id number] 14:51:58 Test Item Value Reference Range Interpretation Comments Glucose (test code = 2345-7) 125 mg/dL 70-110 H Lab Interpretation (test code = Abnormal 30033-4) [facility] [id number] 14:51:58 Test Item Value Reference Range Interpretation Comments Sodium (test code = 2951-2) 140 meq/L 136-145 Lab Interpretation (test code = Normal 83221-6) [facility]Gl[facility] [id number] 14:51:58 Test Item Value Reference Range Interpretation Comments Glucose (test code = 2345-7) 125 mg/dL 70-110 H Lab Interpretation (test code = Abnormal 09036-7) [facility] [id number] 14:51:58 Test Item Value Reference Range Interpretation Comments Sodium (test code = 2951-2) 140 meq/L 136-145 Lab Interpretation (test code = Normal 31577-3) [facility]Gl[facility] [id number] 14:51:58 Test Item Value Reference Range Interpretation Comments Glucose (test code = 2345-7) 125 mg/dL 70-110 H Lab Interpretation (test code = Abnormal 38628-9) [facility] [id number] 14:51:58 Test Item Value Reference Range Interpretation Comments Sodium (test code = 2951-2) 140 meq/L 136-145 Lab Interpretation (test code = Normal 13468-1) [facility]Glucose[facility] [id number] 14:51:58 Test Item Value Reference Range Interpretation Comments Glucose (test code = 2345-7) 125 mg/dL 70-110 H Lab Interpretation (test code = Abnormal 37405-0) [facility] [id number] 14:51:58 Test Item Value Reference Range Interpretation Comments Sodium (test code = 2951-2) 140 meq/L 136-145 Lab Interpretation (test code = Normal 45656-6) [facility] CenterGlucose[facility]Stat [id number] 14:51:58 Test Item Value Reference Range Interpretation Comments Glucose (test code = 2345-7) 125 mg/dL 70-110 H Lab Interpretation (test code = Abnormal 30429-7) [facility] [id number] 14:51:58 Test Item Value Reference Range Interpretation Comments Sodium (test code = 2951-2) 140 meq/L 136-145 Lab Interpretation (test code = Normal 40131-9) [facility] CenterGlucose[facility] [id number] 14:51:58 Test Item Value Reference Range Interpretation Comments Glucose (test code = 2345-7) 125 mg/dL 70-110 H Lab Interpretation (test code = Abnormal 66138-1) [facility] [id number] 14:51:58 Test Item Value Reference Range Interpretation Comments Sodium (test code = 2951-2) 140 meq/L 136-145 Lab Interpretation (test code = Normal 89413-2) [facility] CenterGlucose[facility]Stat [id number] 14:51:58 Test Item Value Reference Range Interpretation Comments Glucose (test code = 2345-7) 125 mg/dL 70-110 H Lab Interpretation (test code = Abnormal 94937-8) [facility] [id number] 14:51:58 Test Item Value Reference Range Interpretation Comments Sodium (test code = 2951-2) 140 meq/L 136-145 Lab Interpretation (test code = Normal 57369-5) [facility]Glucose[facility] [id number] 14:51:58 Test Item Value Reference Range Interpretation Comments Glucose (test code = 2345-7) 125 mg/dL 70-110 H Lab Interpretation (test code = Abnormal 04579-6) [facility] [id number] 14:51:58 Test Item Value Reference Range Interpretation Comments Sodium (test code = 2951-2) 140 meq/L 136-145 Lab Interpretation (test code = Normal 62503-9) [facility] CenterGlucose[facility]Stat [id number] 14:51:58 Test Item Value Reference Range Interpretation Comments Glucose (test code = 2345-7) 125 mg/dL 70-110 H Lab Interpretation (test code = Abnormal 47283-0) [facility] [id number] 14:51:58 Test Item Value Reference Range Interpretation Comments Sodium (test code = 2951-2) 140 meq/L 136-145 Lab Interpretation (test code = Normal 53800-7) [facility] CenterGLUCOSE-STAT [id number] 14:51:58 Test Item Value Reference Range Interpretation Comments GLUCOSE RANDOM (BEAKER) (test code 125 mg/dL 70-110 H = 652) SODIUM NA-STAT [id number] 14:51:58 Test Item Value Reference Range Interpretation Comments SODIUM (BEAKER) (test code = 381) 140 meq/L 136-145 BLOOD GAS, [id number] 13:14:40 Test Item Value Reference Range Interpretation [...] (test code = 1819) 44.0 STAT-LAB IONIZED [id number] 13:14:29 Test Item Value Reference Range Interpretation Comments FILTER IONIZED CALCIUM (BEAKER) 1.03 nnol/L (test code = 1854) Reference Range: No NormalsGLUCOSE-STAT [id number] 13:14:12 Test Item Value Reference Range Interpretation Comments GLUCOSE RANDOM (BEAKER) (test code 121 mg/dL 70-110 H = 652) SODIUM NA-STAT [id number] 13:14:12 Test Item Value Reference Range Interpretation Comments SODIUM (BEAKER) (test code = 381) 140 meq/L 136-145 POTASSIUM-STAT [id number] 13:14:12 Test Item Value Reference Range Interpretation Comments POTASSIUM (BEAKER) (test code = 3.5 meq/L 3.6-5.5 L 379) HGB/HCT (H&H) - STAT [id number] 13:14:12 Test Item Value Reference Range Interpretation Comments HEMOGLOBIN (BEAKER) (test code = 13.2 GM/DL 12.0-15.0 410) HEMATOCRIT (BEAKER) (test code = 39.0 % 36.0-45.0 411) BLOOD GAS, [id number] 11:32:16 Test Item Value Reference Range Interpretation [...] (BEAKER) (test code = 1819) 44.0 POTASSIUM-STAT [id number] 11:32:15 Test Item Value Reference Range Interpretation Comments POTASSIUM (BEAKER) (test code = 3.3 meq/L 3.6-5.5 L 379) STAT-LAB IONIZED [id number] 11:31:44 Test Item Value Reference Range Interpretation Comments FILTER IONIZED CALCIUM (BEAKER) 1.05 nnol/L (test code = 1854) Reference Range: No NormalsHGB/HCT (H&H) - STAT [id number] 11:30:42 Test Item Value Reference Range Interpretation Comments HEMOGLOBIN (BEAKER) (test code = 12.7 GM/DL 12.0-15.0 410) HEMATOCRIT (BEAKER) (test code = 37.0 % 36.0-45.0 411) GLUCOSE-STAT [id number] 11:30:41 Test Item Value Reference Range Interpretation Comments GLUCOSE RANDOM (BEAKER) (test code = 96 mg/dL 70-110 652) SODIUM NA-STAT [id number] 11:30:41 Test Item Value Reference Range Interpretation Comments SODIUM (BEAKER) (test code = 381) 141 meq/L 136-145 [id number] 11:21:57 Test Item Value Reference Range Interpretation Comments Calcium (test code = 7.7 mg/dL 8.4-10.2 L 21454-6) ANNY (test code = ANNY) Physician Executive ID - AAHAMID Lab Interpretation (test Abnormal code = 14500-3) [facility] 11:21:57 Test Item Value Reference Range Interpretation Comments Calcium (test code = 7.7 mg/dL 8.4-10.2 L 74899-4) ANNY (test code = ANNY) Physician Executive ID - AAHAMID Lab Interpretation (test Abnormal code = 40480-7) [facility] 11:21:57 Test Item Value Reference Range Interpretation Comments Calcium (test code = 7.7 mg/dL 8.4-10.2 L 84872-6) ANNY (test code = ANNY) Physician Executive ID - AAHAMID Lab Interpretation (test Abnormal code = 67436-0) [facility]2023-02-15 11:21:57 Test Item Value Reference Range Interpretation Comments Calcium (test code = 7.7 mg/dL 8.4-10.2 L 41708-1) ANNY (test code = ANNY) Physician Executive ID - AAHAMID Lab Interpretation (test Abnormal code = 81921-3) [facility]2023-02-15 11:21:57 Test Item Value Reference Range Interpretation Comments Calcium (test code = 7.7 mg/dL 8.4-10.2 L 45957-1) ANNY (test code = ANNY) Physician Executive ID - AAHAMID Lab Interpretation (test Abnormal code = 10011-9) [facility]2023-02-15 11:21:57 Test Item Value Reference Range Interpretation Comments Calcium (test code = 7.7 mg/dL 8.4-10.2 L 86148-7) ANNY (test code = ANNY) Physician Executive ID - AAHAMID Lab Interpretation (test Abnormal code = 97372-1) [facility]2023-02-15 11:21:57 Test Item Value Reference Range Interpretation Comments Calcium (test code = 7.7 mg/dL 8.4-10.2 L 24853-5) ANNY (test code = ANNY) Physician Executive ID - AAHAMID Lab Interpretation (test Abnormal code = 40654-7) [facility] 11:21:57 Test Item Value Reference Range Interpretation Comments Calcium (test code = 7.7 mg/dL 8.4-10.2 L 46223-0) ANNY (test code = ANNY) Physician Executive ID - AAHAMID Lab Interpretation (test Abnormal code = 64471-5) [facility]2023-02-15 11:21:57 Test Item Value Reference Range Interpretation Comments Calcium (test code = 7.7 mg/dL 8.4-10.2 L 32152-8) ANNY (test code = ANNY) Physician Executive ID - AAHAMID Lab Interpretation (test Abnormal code = 32481-1) [place] [id number] 11:21:57 Test Item Value Reference Range Interpretation Comments CALCIUM (BEAKER) (test code = 697) 7.7 mg/dL 8.4-10.2 L Physician Executive ID - AAHAMIDHGB/HCT (H&H) - STAT [id number] 10:03:20 Test Item Value Reference Range Interpretation Comments HEMOGLOBIN (BEAKER) (test code = 11.6 GM/DL 12.0-15.0 L 410) HEMATOCRIT (BEAKER) (test code = 34.0 % 36.0-45.0 L 411) BLOOD GAS, [id number] 10:03:19 Test Item Value Reference Range Interpretation [...] (BEAKER) (test code = 1819) 50.0 POTASSIUM-STAT [id number] 10:03:19 Test Item Value Reference Range Interpretation Comments POTASSIUM (BEAKER) (test code = 2.8 meq/L 3.6-5.5 L 379) GLUCOSE-STAT [id number] 10:02:32 Test Item Value Reference Range Interpretation Comments GLUCOSE RANDOM (BEAKER) (test code = 84 mg/dL 70-110 652) SODIUM NA-STAT [id number] 10:02:32 Test Item Value Reference Range Interpretation Comments SODIUM (BEAKER) (test code = 381) 139 meq/L 136-145 POCT , [id number] 06:23:00 Test Item Value Reference Range Interpretation Comments Test Urine, POC (test Negative code = 2060757) Control line present?, POC (test Yes code = 4495529) Background clear?, POC (test code Yes = 4814624) UPT Cassette Lot #, POC (test code 20511114 = 9832181) UPT Cassette Expiration Date, POC 09/05/2023 (test code = 1648145) [facility] , [id number] 06:23:00 Test Item Value Reference Range Interpretation Comments Test Urine, POC (test Negative code = 4869609) Control line present?, POC (test Yes code = 6094462) Background clear?, POC (test code Yes = 4303620) UPT Cassette Lot #, POC (test code 20511114 = 8467889) UPT Cassette Expiration Date, POC 09/05/2023 (test code = 8725571) [facility] , [id number] 06:23:00 Test Item Value Reference Range Interpretation Comments Test Urine, POC (test Negative code = 5780390) Control line present?, POC (test Yes code = 5289374) Background clear?, POC (test code Yes = 4072541) UPT Cassette Lot #, POC (test code 20511114 = 9405502) UPT Cassette Expiration Date, POC 09/05/2023 (test code = 1246593) [facility] , [id number] 06:23:00 Test Item Value Reference Range Interpretation Comments Test Urine, POC (test Negative code = 3371530) Control line present?, POC (test Yes code = 6625184) Background clear?, POC (test code Yes = 3395753) UPT Cassette Lot #, POC (test code 20511114 = 3619237) UPT Cassette Expiration Date, POC 09/05/2023 (test code = 4981426) [facility] , [id number] 06:23:00 Test Item Value Reference Range Interpretation Comments Test Urine, POC (test Negative code = 4346024) Control line present?, POC (test Yes code = 0349493) Background clear?, POC (test code Yes = 6824761) UPT Cassette Lot #, POC (test code 20511114 = 0489518) UPT Cassette Expiration Date, POC 09/05/2023 (test code = 6936974) [facility] , [id number] 06:23:00 Test Item Value Reference Range Interpretation Comments Test Urine, POC (test Negative code = 1453977) Control line present?, POC (test Yes code = 7469258) Background clear?, POC (test code Yes = 2661130) UPT Cassette Lot #, POC (test code 20511114 = 9908772) UPT Cassette Expiration Date, POC 09/05/2023 (test code = 4876118) [facility] , [id number] 06:23:00 Test Item Value Reference Range Interpretation Comments Test Urine, POC (test Negative code = 7447849) Control line present?, POC (test Yes code = 4424252) Background clear?, POC (test code Yes = 7634664) UPT Cassette Lot #, POC (test code 20511114 = 3969179) UPT Cassette Expiration Date, POC 09/05/2023 (test code = 2218571) [facility] , [id number] 06:23:00 Test Item Value Reference Range Interpretation Comments Test Urine, POC (test Negative code = 6876727) Control line present?, POC (test Yes code = 4370520) Background clear?, POC (test code Yes = 2934005) UPT Cassette Lot #, POC (test code 20511114 = 2484079) UPT Cassette Expiration Date, POC 09/05/2023 (test code = 0526801) [facility] , [id number] 06:23:00 Test Item Value Reference Range Interpretation Comments Test Urine, POC (test Negative code = 3762978) Control line present?, POC (test Yes code = 3135586) Background clear?, POC (test code Yes = 4988744) UPT Cassette Lot #, POC (test code 20511114 = 9833533) UPT Cassette Expiration Date, POC 09/05/2023 (test code = 3529595) [facility] METABOLIC [id number] 12:08:33 Test Item Value Reference Range Interpretation [...] not appl icable for dialysis patien ts Physician Executive ID - [id number] 11:50:04 Test Item Value Reference Range Interpretation Comments PARTIAL THROMBOPLASTIN TIME 30.5 seconds 22.5-36.0 (BEAKER) (test code = 760) PROTHROMBIN TIME/[id number] 11:49:24 Test Item Value Reference Range Interpretation Comments PROTIME (BEAKER) (test code = 12.6 seconds 11.9-14.2 759) INR (BEAKER) (test code = 370) 1.00 <=5.90 RECOMMENDED COUMADIN/WARFARIN INR THERAPY RANGESSTANDARD DOSE: 2.0 - 3.0 Includes: PROPHYLAXIS for venous thrombosis, systemic embolization; TREATMENT for venous thrombosis and/or pulmonary embolus.HIGH RISK: Target INR is 2.5-3.5 for patients with mechanical heart valves.CBC W/PLT COUNT & AUTO [id number] 11:42:44 Test Item Value Reference Range Interpretation [...] (test code = 2801) RAD, CHEST, 2 [id number] 17:15:00Reason for exam:->[facility]op [facility] 1975 Sex: FFINAL REPORT Chest, 2 views History: Preoperative test Comparison: none Findings:Clear lungs. Normal size heart. No pleural effusion or pneumothorax. Impression:No significant findings in the chest. Signed: Eliecer Oconnor [facility] Verified Date/Time: 06/17/2022 17:15:00 Urinalysis w/Microscopic + Reflex to Culture 2022-06-17 12:37:27 Test Item Value Reference Range Interpretation Comments Color, UA (test code Yellow = 5778-6) Clarity, UA (test Clear code = 5767-9) Specific [place], UA 1.030 1.001-1.035 (test code = 5811-5) pH, UA (test code = 6.0 5.0-8.0 5803-2) Protein, UA (test 20 mg/dL Negative A code = 29746-2) Glucose, UA (test Negative Negative code = 365) Ketones, UA (test Negative Negative code = 2514-8) Bilirubin, UA (test Negative Negative code = 60892-0) Blood, UA (test code Negative Negative = 26324-0) Nitrite, UA (test Negative Negative code = 5802-4) Leukocytes, UA (test Negative Negative code = 5799-2) Urobilinogen, UA 0.2 0.2-1.0 (test code = 43530-5) RBC, UA (test code = 1 See_Comment [Autom ated 87977-1) message] The system which generated this result [...] 3 See_Comment [Automate d (test code = 57136-8) messag e] The system which generated this result transmitted reference range : /HPF. The reference range was not used to interpret this result as normal/abnormal . Specimen Source (test code = 2795) ANNY (test code = ANNY) Physician Executive ID - [auto]Physician Executive ID - tech Lab Interpretation Abnormal (test code = 00675-9) [facility] Reflex to Culture 2022-06-17 12:37:27 Test Item Value Reference Range Interpretation Comments Color, UA (test code Yellow = 5778-6) Clarity, UA (test Clear code = 5767-9) Specific [place], UA 1.030 1.001-1.035 (test code = 5811-5) pH, UA (test code = 6.0 5.0-8.0 5803-2) Protein, UA (test 20 mg/dL Negative A code = 39205-3) Glucose, UA (test Negative Negative code = 365) Ketones, UA (test Negative Negative code = 2514-8) Bilirubin, UA (test Negative Negative code = 88636-4) Blood, UA (test code Negative Negative = 57963-8) Nitrite, UA (test Negative Negative code = 5802-4) Leukocytes, UA (test Negative Negative code = 5799-2) Urobilinogen, UA 0.2 0.2-1.0 (test code = 12174-6) RBC, UA (test code = 1 See_Comment [Autom ated 75812-1) message] The system which generated this result [...] 3 See_Comment [Automate d (test code = 01655-6) messag e] The system which generated this result transmitted reference range : /HPF. The reference range was not used to interpret this result as normal/abnormal . Specimen Source (test code = 2795) ANNY (test code = ANNY) Physician Executive ID - [auto]Physician Executive ID - tech Lab Interpretation Abnormal (test code = 19441-7) [facility] Reflex to Culture 2022-06-17 12:37:27 Test Item Value Reference Range Interpretation Comments Color, UA (test code Yellow = 5778-6) Clarity, UA (test Clear code = 5767-9) Specific [place], UA 1.030 1.001-1.035 (test code = 5811-5) pH, UA (test code = 6.0 5.0-8.0 5803-2) Protein, UA (test 20 mg/dL Negative A code = 32865-4) Glucose, UA (test Negative Negative code = 365) Ketones, UA (test Negative Negative code = 2514-8) Bilirubin, UA (test Negative Negative code = 53001-6) Blood, UA (test code Negative Negative = 52114-7) Nitrite, UA (test Negative Negative code = 5802-4) Leukocytes, UA (test Negative Negative code = 5799-2) Urobilinogen, UA 0.2 0.2-1.0 (test code = 47491-7) RBC, UA (test code = 1 See_Comment [Autom ated 89380-5) message] The system which generated this result [...] 3 See_Comment [Automate d (test code = 69165-9) messag e] The system which generated this result transmitted reference range : /HPF. The reference range was not used to interpret this result as normal/abnormal . Specimen Source (test code = 2795) ANNY (test code = ANNY) Physician Executive ID - [auto]Physician Executive ID - tech Lab Interpretation Abnormal (test code = 55751-0) [facility] 2022-06-17 12:37:27 Test Item Value Reference Range Interpretation Comments Color, UA (test code Yellow = 5778-6) Clarity, UA (test Clear code = 5767-9) Specific [place], UA 1.030 1.001-1.035 (test code = 5811-5) pH, UA (test code = 6.0 5.0-8.0 5803-2) Protein, UA (test 20 mg/dL Negative A code = 75948-8) Glucose, UA (test Negative Negative code = 365) Ketones, UA (test Negative Negative code = 2514-8) Bilirubin, UA (test Negative Negative code = 46539-9) Blood, UA (test code Negative Negative = 50215-3) Nitrite, UA (test Negative Negative code = 5802-4) Leukocytes, UA (test Negative Negative code = 5799-2) Urobilinogen, UA 0.2 0.2-1.0 (test code = 65854-8) RBC, UA (test code = 1 See_Comment [Autom ated 12658-6) message] The system which generated this result [...] 3 See_Comment [Automate d (test code = 06832-1) messag e] The system which generated this result transmitted reference range : /HPF. The reference range was not used to interpret this result as normal/abnormal . Specimen Source (test code = 2795) ANNY (test code = ANNY) Physician Executive ID - [auto]Physician Executive ID - tech Lab Interpretation Abnormal (test code = 65698-2) [facility] Reflex [facility] Culture 2022-06-17 12:37:27 Test Item Value Reference Range Interpretation Comments Color, UA (test code Yellow = 5778-6) Clarity, UA (test Clear code = 5767-9) Specific [place], UA 1.030 1.001-1.035 (test code = 5811-5) pH, UA (test code = 6.0 5.0-8.0 5803-2) Protein, UA (test 20 mg/dL Negative A code = 55526-7) Glucose, UA (test Negative Negative code = 365) Ketones, UA (test Negative Negative code = 2514-8) Bilirubin, UA (test Negative Negative code = 63599-9) Blood, UA (test code Negative Negative = 32029-5) Nitrite, UA (test Negative Negative code = 5802-4) Leukocytes, UA (test Negative Negative code = 5799-2) Urobilinogen, UA 0.2 0.2-1.0 (test code = 78819-9) RBC, UA (test code = 1 See_Comment [Autom ated 07023-0) message] The system which generated this result [...] 3 See_Comment [Automate d (test code = 77098-6) messag e] The system which generated this result transmitted reference range : /HPF. The reference range was not used to interpret this result as normal/abnormal . Specimen Source (test code = 2795) ANNY (test code = ANNY) Physician Executive ID - [auto]Physician Executive ID - tech Lab Interpretation Abnormal (test code = 04287-7) [facility] Reflex [facility] Culture 2022-06-17 12:37:27 Test Item Value Reference Range Interpretation Comments Color, UA (test code Yellow = 5778-6) Clarity, UA (test Clear code = 5767-9) Specific [place], UA 1.030 1.001-1.035 (test code = 5811-5) pH, UA (test code = 6.0 5.0-8.0 5803-2) Protein, UA (test 20 mg/dL Negative A code = 14847-9) Glucose, UA (test Negative Negative code = 365) Ketones, UA (test Negative Negative code = 2514-8) Bilirubin, UA (test Negative Negative code = 79852-1) Blood, UA (test code Negative Negative = 68335-9) Nitrite, UA (test Negative Negative code = 5802-4) Leukocytes, UA (test Negative Negative code = 5799-2) Urobilinogen, UA 0.2 0.2-1.0 (test code = 63690-3) RBC, UA (test code = 1 See_Comment [Autom ated 38168-9) message] The system which generated this result [...] 3 See_Comment [Automate d (test code = 98579-3) messag e] The system which generated this result transmitted reference range : /HPF. The reference range was not used to interpret this result as normal/abnormal . Specimen Source (test code = 2795) ANNY (test code = ANNY) Physician Executive ID - [auto]Physician Executive ID - tech Lab Interpretation Abnormal (test code = 58581-2) [facility] Reflex [facility] Culture 2022-06-17 12:37:27 Test Item Value Reference Range Interpretation Comments Color, UA (test code Yellow = 5778-6) Clarity, UA (test Clear code = 5767-9) Specific [place], UA 1.030 1.001-1.035 (test code = 5811-5) pH, UA (test code = 6.0 5.0-8.0 5803-2) Protein, UA (test 20 mg/dL Negative A code = 48054-2) Glucose, UA (test Negative Negative code = 365) Ketones, UA (test Negative Negative code = 2514-8) Bilirubin, UA (test Negative Negative code = 26659-1) Blood, UA (test code Negative Negative = 80592-7) Nitrite, UA (test Negative Negative code = 5802-4) Leukocytes, UA (test Negative Negative code = 5799-2) Urobilinogen, UA 0.2 0.2-1.0 (test code = 71501-9) RBC, UA (test code = 1 See_Comment [Autom ated 53885-1) message] The system which generated this result [...] 3 See_Comment [Automate d (test code = 15026-7) messag e] The system which generated this result transmitted reference range : /HPF. The reference range was not used to interpret this result as normal/abnormal . Specimen Source (test code = 2795) ANNY (test code = ANNY) Physician Executive ID - [auto]Physician Executive ID - tech Lab Interpretation Abnormal (test code = 46278-4) [facility] Reflex [facility] Culture 2022-06-17 12:37:27 Test Item Value Reference Range Interpretation Comments Color, UA (test code Yellow = 5778-6) Clarity, UA (test Clear code = 5767-9) Specific [place], UA 1.030 1.001-1.035 (test code = 5811-5) pH, UA (test code = 6.0 5.0-8.0 5803-2) Protein, UA (test 20 mg/dL Negative A code = 17711-6) Glucose, UA (test Negative Negative code = 365) Ketones, UA (test Negative Negative code = 2514-8) Bilirubin, UA (test Negative Negative code = 46535-3) Blood, UA (test code Negative Negative = 50267-3) Nitrite, UA (test Negative Negative code = 5802-4) Leukocytes, UA (test Negative Negative code = 5799-2) Urobilinogen, UA 0.2 0.2-1.0 (test code = 10088-8) RBC, UA (test code = 1 See_Comment [Autom ated 63417-7) message] The system which generated this result [...] 3 See_Comment [Automate d (test code = 04686-2) messag e] The system which generated this result transmitted reference range : /HPF. The reference range was not used to interpret this result as normal/abnormal . Specimen Source (test code = 2795) ANNY (test code = ANNY) Physician Executive ID - [auto]Physician Executive ID - tech Lab Interpretation Abnormal (test code = 26223-2) [facility] Reflex [facility] Culture 2022-06-17 12:37:27 Test Item Value Reference Range Interpretation Comments Color, UA (test code Yellow = 5778-6) Clarity, UA (test Clear code = 5767-9) Specific [place], UA 1.030 1.001-1.035 (test code = 5811-5) pH, UA (test code = 6.0 5.0-8.0 5803-2) Protein, UA (test 20 mg/dL Negative A code = 29543-9) Glucose, UA (test Negative Negative code = 365) Ketones, UA (test Negative Negative code = 2514-8) Bilirubin, UA (test Negative Negative code = 36789-6) Blood, UA (test code Negative Negative = 49683-0) Nitrite, UA (test Negative Negative code = 5802-4) Leukocytes, UA (test Negative Negative code = 5799-2) Urobilinogen, UA 0.2 0.2-1.0 (test code = 04160-5) RBC, UA (test code = 1 See_Comment [Autom ated 56992-4) message] The system which generated this result [...] 3 See_Comment [Automate d (test code = 42492-8) messag e] The system which generated this result transmitted reference range : /HPF. The reference range was not used to interpret this result as normal/abnormal . Specimen Source (test code = 2795) ANNY (test code = ANNY) Physician Executive ID - [auto]Physician Executive ID - tech Lab Interpretation Abnormal (test code = 66875-7) [facility] Reflex [facility] Culture 2022-06-17 12:37:27 Test Item Value Reference Range Interpretation Comments Color, UA (test code Yellow = 5778-6) Clarity, UA (test Clear code = 5767-9) Specific [place], UA 1.030 1.001-1.035 (test code = 5811-5) pH, UA (test code = 6.0 5.0-8.0 5803-2) Protein, UA (test 20 mg/dL Negative A code = 80942-8) Glucose, UA (test Negative Negative code = 365) Ketones, UA (test Negative Negative code = 2514-8) Bilirubin, UA (test Negative Negative code = 34463-9) Blood, UA (test code Negative Negative = 99608-1) Nitrite, UA (test Negative Negative code = 5802-4) Leukocytes, UA (test Negative Negative code = 5799-2) Urobilinogen, UA 0.2 0.2-1.0 (test code = 43712-0) RBC, UA (test code = 1 See_Comment [Autom ated 47518-5) message] The system which generated this result [...] 3 See_Comment [Automate d (test code = 53171-1) nadia chung] The system which generated this result transmitted reference range : /HPF. The reference range was not used to interpret this result as normal/abnormal . Specimen Source (test code = 2795) ANNY (test code = ANNY) Physician Executive ID - [auto]Physician Executive ID - tech Lab Interpretation Abnormal (test code = 28055-3) [facility]LEX URINE [id number] 12:37:27 Test Item Value Reference Range Interpretation [...] = 516) SOURCE(BEAKER) (test code = 2795) Physician Executive ID - [auto]Physician Executive ID - techMR, BRAIN, [id number] 19:57:00Need stealth protocolMRI need to be under anesthesia, patient is severely claustrophobic.Need stealth protocolMRI need to be under anesthesia, patient is severely claustrophobic.Unlisted Reason for Exam - Click Yes and Enter Reason Below->YesUnlisted Reason for Exam->D49.6 [facility] 1975 Sex: FFINAL [...] present), subependymoma and intraventricular metastasis. Signed: Aparna Ramon MDReport Verified Date/Time: 06/06/2022 19:57:15 POCT , urine 2022-06-06 11:31:00 Test Item Value Reference Range Interpretation Comments Test Urine, POC (test Negative code = 9785823) Control line present?, POC (test Yes code = 7952958) Background clear?, POC (test code Yes = 9545820) UPT Cassette Lot #, POC (test code [id number] = 9025947) UPT Cassette Expiration Date, POC 09/05/2023 (test code = 8101634) [facility] , [id number] 11:31:00 Test Item Value Reference Range Interpretation Comments Test Urine, POC (test Negative code = 1811266) Control line present?, POC (test Yes code = 7871019) Background clear?, POC (test code Yes = 7401081) UPT Cassette Lot #, POC (test code [id number] = 3573761) UPT Cassette Expiration Date, POC 09/05/2023 (test code = 2929565) [facility] , [id number] 11:31:00 Test Item Value Reference Range Interpretation Comments Test Urine, POC (test Negative code = 9598705) Control line present?, POC (test Yes code = 2187564) Background clear?, POC (test code Yes = 6309636) UPT Cassette Lot #, POC (test code [id number] = 3338085) UPT Cassette Expiration Date, POC 09/05/2023 (test code = 0237113) [facility] SARS-COV-2 ANTIGEN (BINAX NOW)2022-01-16 16:11:00 Test Item Value Reference Range Interpretation Comments POCT SARS-COV-2 ANTIGEN (test code = Positive Not Detected A 5076) On board controls acceptable with C Yes Line (test code = 3574) Lab Interpretation (test code = Abnormal 65850-1) [facility]2022-03-21 13:10:00 Test Item Value Reference Range Interpretation Comments SURGICAL (test code = SR) R UN DATE: 07/26/21 [facility] PAGE 1 RUN TIME: 1310 Specimen Inquiry RUN USER: INTERFACE P ATIENT: ESTHER ROSAS LOC: [place] U #: [id number] AGE/SX: 46/F ROOM: [facility] RE07/22/21REG DR: Isaiah Warren MD : 79 BED: A DIS: 07/24/21 STATUS: DIS IN TLOC: SPEC #: [id number] RECD: 07/22/21 STATUS: DA REQ #: [id number] TATO: 07/22/21 [facility] DR: Isaiah Warren MD ENTERED: 07/22/21 SP TYPE: SURGICAL OTHR DR: Mely Winslow MD, Nadeem MDORDERED: 24118, ANATOMIC SPEC COPIES TO: Isaiah Warren MD [address] [place] [address] Mely Winslow MD [address] [address] [place] [address] [place] [address] [facility] [address] [place] [address] PROCEDURES: 65962 (07/22/21) TISSUES: A. STOMACH SUBTOTAL / TOTAL [...] smooth and glistening. No lesionsare grossly identified, correspondence representative sections are submitted in a single cassette. XZ Technical component excluding immunohistochemistry is performed at [facility], [address] [place] [address] Technical component of all immunohistochemistry is performed at [facility], [address] [place] [address], [address], [place] [address] CONTINUED ON NEXT PAGE R UN DATE: 07/26/21 [facility] PAGE 2 RUN TIME: 1310 Specimen Inquiry RUN USER: INTERFACE S PEC #: [id number] PATIENT: ESTHER ROSAS #[id number] (Continued) GROSS DESCRIPTION (Continued) Immunohistochemistry: This test was developed and its performance characteristicsdetermined by this laboratory. It has not been approved nor does it need approval by the [facility]. Appropriate positive and negative controls are reviewed and judged to be acceptable.This laboratory is certified under the Clinical Laboratory Improvement Amendments (CLIA-88)as qualified to perform high complexity clinical laboratory testing. Unless gross only, the diagnosis is based upon microscopic examination. CLINICAL INFORMATION COLLECTION DATE: 07/22/2021 --------- Signed SIGNATURE ON FILE Jaron Brooks 07/26/21 1310 END OF REPORT CBC W/AUTO [id number] 16:36:00 Test Item Value Reference Range Interpretation [...] SCAN NEEDED (test code = MDIFF) DIFFERENTIAL [id number] 16:36:00 Test Item Value Reference Range Interpretation Comments STAIN ACCEPTABILITY (test STAIN ACCEPTABLE code = STN ACCEPTABLE) CABOT RINGS (test code = CAB) MORPHOLOGY COMMENT (test NORMAL code = MOC) PLATELET ESTIMATE (test code ADEQUATE = PLTEST) PLATELET MORPHOLOGY (test NORMAL code = PLTMORPH) BASIC METABOLIC [id number] 16:26:00 Test Item Value Reference Range Interpretation [...] >3 months. [Automated mess age] The system [employer] Software generated this result transmitted ref erence range: >=60. Th e reference range was not used to int erpret this result as normal/abnormal . CREATININE (test 0.50 mg/dL 0.55-1.02 L Note sommers ge in code = CREAT) reference rang e due to change in reagent. BUN/CREATININE RATIO 13.0 10-20 N (test code = BUN/CREA) CALCIUM (test code = 8.5 mg/dL 8.5-10.1 N CA) [id number] 06:57:00 Test Item Value Reference Range Interpretation Comments GLUBED (test code = 91 mg/dL 74-106 N Performe d by certified GLUBED) digital press operator at [facility] COVID 19 Asymptomatic IH [id number] 06:28:00 Test Item Value Reference Range Interpretation Comments COVID 19 Asymptomatic IH AG (test NEGATIVE NEGATIVE code = COVNONPUIAG) HCG SERUM [id number] 16:27:00 Test Item Value Reference Range Interpretation Comments HCG SERUM QUAL (test NEGATIVE NEGATIVE This H CGQL test is NOT code = HCGQL) applicable for MALE patients.Check with nurse about probable order error.If Tumor Marker Test needed, nu rse should order test "HCG TU"(Test #550.48395)---- - URINALYSIS [id number] 15:44:00 Test Item Value Reference Range Interpretation Comments UA COLOR (test code = Light-Yellow YELLOW COLU) UA APPEARANCE (test CLEAR CLEAR IS THE S AMPLE code = APPU) FROM ER OR L&D? NO SRG ESDRAS IF T HE ANSWER IS NO,PLEASE DOCUMENT TWO RN SIGNATURES HERE - by [id number] 07/15/21 1544 UA GLUCOSE DIPSTICK NEGATIVE mg/dL [...] FEW MUCU) Urine Source? Clean CatchCOMPREHENSIVE METABOLIC [id number] 15:43:00 Test Item Value Reference Range Interpretation [...] >3 months. [Automated mess age] The system [employer] Software generated this result transmit manan reference range [...] due ALKP) to change in reagent. PROTHROMBIN [id number] 15:28:00 Test Item Value Reference Range Interpretation [...] (2.5-3.5) IS PATIENT ON ANTICOAGULANTS? NTHROMBOPLASTIN TIME [id number] 15:28:00 Test Item Value Reference Range Interpretation Comments THROMBOPLASTIN TIME PARTIAL 36.6 seconds 23.0-37.0 N (test code = PTT) IS PATIENT ON ANTICOAGULANTS? NCBC W/AUTO [id number] 15:26:00 Test Item Value Reference Range Interpretation [...] NO = MDIFF) - XR CHEST 2 [id number] 14:21:00 [facility])Name: ESTHER ROSAS : 1975 Sex: F FAX: Isaiah Alexis MD [phone] [place]: St: PRE FAX: Mark Anthony Plaza MD Name: ESTHER ROSAS [facility] : 1975 Age/S: 46/F [address] [facility] Unit #: [id number] Loc: [place] [address] Phys: Isaiah Warren MD Acct: [id number] Dis Date: Status: PRE IN PHONE #: [phone] Exam Date: 07/15/2021 1404 FAX #: [phone] Reason: PREOP EXAMS: CPT CODE: [id number] XR CHEST 2 V 53268 REASON FOR EXAM: PREOP Exam Order Date: 07/15/2021 1:13 PM Ordering MIda: Isaiah Warren MD PROCEDURE: - XR CHEST 2 V COMPARISON: None FINDINGS: The lungs are clear. There is nopleural effusion or pneumothorax. Pulmonary vascularity is within normal limits. Cardiomediastinal silhouette is normal in size for technique. The mediastinal contours are within normal limits. Degenerative changes are present in the spine. The visualized upper abdomen is within normal limits. IMPRESSION: No acute cardiopulmonary process. [facility] Reported and signed by: Jacobo Singleton MD CC: Isaiah Warren MD; Mark Anthony Plaza MD Technologist: Bhavin Bernal RT(R) Trnscrd Date/Time/By: 07/15/2021 (1421) : By: [email or web address] Orig Print D/T: S: 07/15/2021 (0875) PAGE 1 Signed ReportLIPID PROFILE (CORONARY RISK)2021-05-08 [...] (test 123 mg/dL 100-129 N RN PER SAWPNA, CONTACT code = LDL) PHYSICIAN IMMED IATELY [...] is a direct measurement.=== ====== HEPATIC FUNCTION [id number] 18:08:00 Test Item Value Reference Range Interpretation [...] ALKP) to change in reagent. HCG SERUM [id number] 18:08:00 Test Item Value Reference Range Interpretation Comments HCG SERUM QUAL (test NEGATIVE NEGATIVE This HC GQL test is NOT code = HCGQL) applicable for MALE patients.Check with nurse about probable order error.If Tumor Marker Test needed, nu rse should order test "HCG TU"(Test #550.70645)---- - VITAMIN [id number] 18:08:00 Test Item Value Reference Range Interpretation Comments VITAMIN B12 (test code = VITB12) 5118 pg/mL 193-986 H FOLIC [id number] 18:08:00 Test Item Value Reference Range Interpretation Comments FOLIC ACID (test code = FOL) 39.2 ng/mL 3.10-17.50 H THYROID PROFILE [id number] 18:08:00 Test Item Value Reference Range Interpretation [...] : < 0.35 mIU/mL VIT B1 WHOLE [id number] 18:08:00 Test Item Value Reference Range Interpretation Comments VIT B1 WHOLE BLOOD 184.0 nmol/L 66.5-200.0 Performed At: (test code = [facility] esy1100 GRDY5JE) [facility] [place], [place] [address]Ykh nataliia Scott MD Ph:[phone] GASTRIC,[id number] 15:31:00 Test Item Value Reference Range Interpretation Comments GASTRIC,BIOPSY (test code = GASTB) RUN DATE: 05/04/21 [place] [facility] PAGE 1 RUN TIME: 1531 Specimen Inquiry RUN USER: INTERFACE PATIENT: ESTHER ROSAS LOC: ELIJAH U #: [id number] AGE/SX: 46/F ROOM: RE05/03/21REG DR: Isaiah Warren MD : 79 BED: DIS: STATUS: [facility] TLOC: SPEC #: [id number] RECD: 05/03/21 STATUS: DA DUGGAN #: [id number] TATO: 05/03/21 [facility] DR: Isaiah Warren MD ENTERED: 05/03/21 SP TYPE: GASTRIC BX OTHR DR: Mark Anthony Plaza MD ORDERED: GROSS COPIES TO: Isaiah Warren MD [address] [place], [place] [address] [place] [address] [facility] [address] [place] [address] PROCEDURES: GROSS (05/04/21) TISSUES: GASTRIC CORPUS - BX CLINICAL HISTORY COLLECTION DATE: 05/03/21 GERD GASTRITIS, HIATAL HERNIA FINAL DIAGNOSIS Gastric, r/o H. Pylori, biopsy: REACTIVE GASTROPATHY NEGATIVE FOR INTESTINAL METAPLASIA NEGATIVE FOR HELICOBACTER ORGANISMS NEGATIVE FOR MALIGNANCY RRB/gm D 95731, 63361 CONTINUED ON NEXT PAGE RUN DATE: 05/04/21 [place] - Lab PAGE 2 RUN TIME: 1531 Specimen Inquiry RUN USER: INTERFACE SPEC #: [id number] PATIENT: ESTHER ROSAS #[id number] (Continued) MACROSCOPIC The specimen is received in formalin, labeled with the patient's name, identified as "gastric", and consists of a single hernandez biopsy measuring 0.2 cm, submitted for evaluation. GROSS PERFORMED AT [facility] [address] [place] [address] (p)[phone] MICROSCOPIC To identify Helicobacter organisms, a Giemsa stain was performed. No organisms are seen. All of the stains, including any controls performed, stain appropriately. MICROSCOPIC PERFORMED AT [facility] [address] [place] [address] (P)[phone] --- Signed SIGNATURE ON FILE Sushil Loza 05/04/21 1531 END OF REPORT AB HELICOBACTER [id number] 18:32:00 Test Item Value Reference Range Interpretation Comments AB HELICOBACTER IGG (test code = NEGATIVE NEGATIVE HELIGAB) AB HIV 1 11:05:00 Test Item Value Reference Range Interpretation Comments AB HIV 1 2 (test Nonreactive NonReactive It is recog nized that code = IKS26IX) currently av ailable assays for thed etection of antibodies t o HIV-1 and/or HIV-2 ma y notdetect all i nfected individuals. A negative test result liz snot exclude the pos sibility of exposure to or infection withH IV. HIV antibodies may be undetectable in some stages ofthe in fection and in some cli nical conditions. PROTHROMBIN [id number] 10:21:00 Test Item Value Reference Range Interpretation [...] (2.5-3.5) IS PATIENT ON ANTICOAGULANTS? NTHROMBOPLASTIN TIME [id number] 10:21:00 Test Item Value Reference Range Interpretation Comments THROMBOPLASTIN TIME PARTIAL 35.3 seconds 23.0-37.0 N (test code = PTT) IS PATIENT ON ANTICOAGULANTS? NCOMPREHENSIVE METABOLIC [id number] 10:18:00 Test Item Value Reference Range Interpretation [...] >3 months. [Automated mess age] The system [employer] Software generated this result transmit manan reference range [...] range due ALKP) to change in reagent. [id number] 10:01:00 Test Item Value Reference Range Interpretation Comments GLYCOSYLATED HEMOGLOBIN 5.3 % HbA1 [facility] DIAGNOSIS: (HA1C) (test code = HbA1C GLYHGB) (%) ----- ----- Diab etic >6.4Prediabetes 5.7 - 6.4Normal <5. 7 ESTIMATED AVERAGE 105 MG/DL GLUCOSE (test code = EAG) CBC W/AUTO [id number] 09:58:00 Test Item Value Reference Range Interpretation [...] REQUIRED (test code NO = MDIFF) URINALYSIS [id number] 09:25:00 Test Item Value Reference Range Interpretation [...] Urine Source? Clean CatchCOVID 19 Asymptomatic IH [id number] 07:56:00 Test Item Value Reference Range Interpretation Comments COVID 19 Asymptomatic IH AG (test NEGATIVE NEGATIVE code = COVNONPUIAG) POCT GRP A STREP (MOLECULAR)2021-04-09 00:06:00 Test Item Value Reference Range Interpretation Comments POCT GP A STREP (test negative Negative - code = 24821-7) Negative ANNY (test code = ANNY) accurate development and interpretation of all internal controls Lab Interpretation Normal (test code = 13911-9) [facility] Notes Date/Time Note Provider Source 2021-07-24 18:23:00-00:00 [facility] Hospitalist Progress Note REPORT#:[id number] REPORT STATUS: Signed DATE:07/24/21 TIME: 1822 PATIENT: ESTHER ROSAS UNIT #: [id number] ROOM/BED: [address] : [birth year] AGE: 46 SEX: F ATTEND: Shirin Warren MD ADM AUTHOR: Mely Winslow MD * ALL edits or amendments must be made on the VISup/Ogone document * Subjective Chief complaint: tolerating clears Objective General VS/I O: Vital Signs: Date Time Temp Pulse Resp B/P B/P Pulse O2 O2 F low FiO2 Mean Ox Delivery Rate 07/24 1112 97.9 73 16 163/81 108.5 98 Room air 07/24 1100 73 152/83 105.9 07/24 0734 97.9 72 16 180/92 121.5 97 Room air 07/24 0332 98.1 74 16 152/87 108.7 93 Room air 07/23 2309 98.2 70 16 169/92 117.4 93 Room air 07/23 1911 97.9 69 18 188/105 132.6 93 Room air PATIENT WEIGHT: Weight (lb): 347 Weight (oz): 10.7 Weight (kg): 157.700 Medications: Active Meds + DC'd Last 24 Hrs Losartan Potassium (COZAAR 25MG TABLET) 25 MG DA JOANNA PO (DCD) Hydrocodone Bitart/Acetaminophen (HYDROCODONE/AC ETAMINOPHEN) 15 ML Q4H PRN PRN PO (DCD) Enoxaparin Sodium (LOVENOX 40MG SYRINGE) 40 MG D AILY 0800 SUBQ (DCD) Famotidine (PEPCID) 20 MG Q12HR IV (DCD) Hyoscyamine Sulfate (LEVSIN SL) 0.125 MG BID SL (DCD) Lactated Ringer's (LACTATED RINGERS) 1,000 ML .Q 8H IV (DCD) Lorazepam (ATIVAN) 1 MG Q12H PRN PRN IV (DCD) Acetaminophen (ACETAMINOPHEN) 650 MG Q4H PRN PRN RECTAL (DCD) Enalaprilat (ENALAPRILAT DIHYDRATE) 1.25 MG Q6H PRN PRN IV (DCD) Ondansetron HCl (ondansetron HCL) 4 MG Q6H PRN P RN IV (DCD) Promethazine HCl (PHENERGAN) 12.5 MG Q4H PRN PRN IM (DCD) Physical Exam General appearance: alert, awake Cardiovascular: normal heart sounds, regular rat e rhythm Respiratory: aerating well Abdomen: soft, no distention Neuro/BONE CHAR OPERATOR: alert, oriented X 3 Skin: dry, no rash Psychiatry: normal affect Results Results: no new labs, vital signs reviewed, curr ent med profile rev'd Diagnosis, Assessment Plan Free Text DxA P Notes Free text DxA P notes: 1. elevated bp-partially due to pain, wi ll start low dose losartan and go home with it, pt agreeable, she will monitor her bp a t home 2. POD#2 lap sleeve for morbid obesity-toleratin g clears 3. hypothyroid-restart home meds 4. gi/dvt ppx-pepcid iv/lovenox Electronically Signed by Mely Winslow MD on at 4054 RPT #:[id number] END OF REPORT 2021-07-24 13:31:00-00:00 [id number] [facility] PATIENT NAME: ESTHER ROSAS ADMIT DATE: 07/22/21 ACCOUNT NO: [id number] ROOM NO: [facility] AGE: 46 REPORT TYPE: DISCHARGE SUMMARY REPORT SEX: F DATE OF : [birth year] ADMITTING PHYSICIAN:Isaiah Warren MD ATTENDING PHYSICIAN:Isaiah Warren MD ADMISSION DATE: 07/22/2021 DISCHARGE DATE: 07/24/2021 FINAL DIAGNOSES: Morbid obesity, obstructive sle ep apnea, depression, hypothyroidism, chronic back pain. OPERATION PERFORMED: Laparoscopic vertical sleev e gastrectomy. DATE OF SURGERY: 07/22/2021. SUMMARY: This is a 46-year-old female who was ad mitted to [facility] for elective weight loss surgery by means of laparoscopic vertical sleeve gastrectomy, which took place on the same day of admission, 07/22/2021, without incident. Her postoperative course was otherwise uneventful. On the first day postop, she was placed on a post-gastrectomy clear liquid diet regimen, which was eventually tolera manan by the second day postop. At this point, the patient w as reevaluated by the undersigned. She was found to be alert and oriented x3, ambulatory, tolerating clear liquid diet regimen without complaints. She was afebrile. Vital sign s were stable. PHYSICAL EXAMINATION: Centered upon chest, abdom en, and lower extremities. CHEST: Clear to percussion and auscultation bila terally. ABDOMEN: Soft. Bowel sounds normoactive. EXTREMITIES: Full range of motion with negative Homans sign bilaterally. Her general condition was found to be satisfacto ry. She was therefore discharged in stable condition on 2020 and advised to be followed by the undersigned within 2 weeks as indicated. MEDICATIONS UPON DISCHARGE: See reconciliation f orm. DIET: Post-gastrectomy full liquid diet regimen. ACTIVITY: Ad ghislaine. CONDITION UPON DISCHARGE: Stable. DISPOSITION: Discharged home. Dictated By: Isaiah Warren MD WT: DS:RACHELLE/MAINE/MITCH PATIENT NAME: ESTHER ROSAS Conf#: [id number]/DID#: [id number] Authenticated by Isaiah Warren MD On 07/27/19 08:46:36 AM at 0846 PATIENT NAME: ESTHER ROSAS 2021-07-23 17:43:00-00:00 [facility] Hospitalist Progress Note REPORT#:[id number] REPORT STATUS: Signed DATE:07/23/21 TIME: 1743 PATIENT: ESTHER ROSAS UNIT #: [id number] ROOM/BED: [address] : 77 AGE: 46 SEX: F ATTEND: Shirin Warren MD ADM AUTHOR: Mely Winslow MD * ALL edits or amendments must be made on the VISup/Ogone document * Subjective Chief complaint: tolerated a little clears so far Objective General VS/I O: Vital Signs: Date Time Temp Pulse Resp B/P B/P Pulse O2 O2 F low FiO2 Mean Ox Delivery Rate 07/23 1546 97.5 68 16 167/83 110.8 95 Room air 07/23 1546 97.5 68 16 167/83 110.8 95 Room air 07/23 1158 98.8 67 16 174/82 112.8 97 Room air 07/23 0702 99.1 75 16 158/86 110.2 94 07/23 0607 66 98 07/23 0607 64 132/79 96.4 97 07/23 0446 74 173/98 123.2 92 07/23 0246 78 141/85 103.6 91 07/23 0045 97.7 79 16 151/89 109.3 94 07/22 2238 70 97 07/227 75 97 07/227 76 148/93 111.6 93 07/22 2234 82 152/92 112.1 93 07/229 82 156/92 113.3 92 07/22 1941 99.0 75 16 136/87 103.3 92 07/22 1924 73 136/87 103.3 93 07/22 1834 98.8 72 137/89 105.0 94 24 hour I O ending at 0700: 07/23 0700 07/22 1900 Intake Total Output Total Balance Number Voids 2 PATIENT WEIGHT: Weight (lb): 347 Weight (oz): 10.7 Weight (kg): 157.700 Medications: Active Meds + DC'd Last 24 Hrs Hydrocodone Bitart/Acetaminophen (HYDROCODONE/AC ETAMINOPHEN) 15 ML Q4H PRN PRN PO Enoxaparin Sodium (LOVENOX 40MG SYRINGE) 40 MG D AILY 0800 SUBQ Famotidine (PEPCID) 20 MG Q12HR IV Hyoscyamine Sulfate (LEVSIN SL) 0.125 MG BID SL Cefazolin/Sodium Chloride (ANCEF 2 GM/NS 100ML) 100 ML Q8H IV (DC) Hydralazine HCl (APRESOLINE) 5 MG Q10M PRN PRN I V (DC) Labetalol HCl (LABETOLOL HCL) 2.5 MG Q5M PRN PRN IV (DC) Morphine Sulfate (morphine SULFATE) 2 MG Q5M PRN PRN IV (DC) Morphine Sulfate (morphine SULFATE) 4 MG Q5M PRN PRN IV (DC) Ondansetron HCl (ondansetron HCL) 4 MG ONCE PRN IV (DC) Lactated Ringer's (LACTATED RINGERS) 1,000 ML .Q 8H IV Lorazepam (ATIVAN) 1 MG Q12H PRN PRN IV Acetaminophen (ACETAMINOPHEN) 650 MG Q4H PRN PRN RECTAL Enalaprilat (ENALAPRILAT DIHYDRATE) 1.25 MG Q6H PRN PRN IV Hydromorphone HCl (Hydromorphone HCl) 0.5 MG Q4H PRN PRN IV (DC) Ondansetron HCl (ondansetron HCL) 4 MG Q6H PRN P RN IV Promethazine HCl (PHENERGAN) 12.5 MG Q4H PRN PRN IM Physical Exam General appearance: alert, awake Cardiovascular: normal heart sounds, regular rat e rhythm Respiratory: aerating well Abdomen: soft, no distention Neuro/BONE CHAR OPERATOR: alert, oriented X 3 Skin: dry, no rash Psychiatry: normal affect Results Findings/Data: Laboratory Tests 07/23 1517 Chemistry Sodium (136 - 145 mmol/L) 138 Potassium (3.5 - 5.1 mmol/L) 3.8 Chloride (98 - 107 mmol/L) 103.0 Carbon Dioxide (21 - 32 mmol/L) 29.0 Anion Gap (10 - 20) 9.8 L BUN (7 - 18 mg/dL) 7 Creatinine (0.55 - 1.02 mg/dL) 0.50 L Glomerular Filtr Rate (>=60 mL/min) > 60 BUN/Creatinine Ratio (10 - 20) 13.0 Glucose (74 - 106 mg/dL) 102 Calcium (8.5 - 10.1 mg/dL) 8.5 Laboratory Tests 07/23 1517 Hematology WBC (4.5 - 12.5 K/mm3) 10.4 RBC (3.7 - 5.2 mill/mm3) 4.34 Hgb (11.5 - 15.5 gram/dL) 12.4 Hct (36.0 - 46.0 %) 38.3 MCV (80 - 98 fL) 88.2 MCH (27.0 - 33.0 picogram) 28.6 MCHC (33.0 - 36.0 gram/dL) 32.4 L RDW (11.6 - 16.2 %) 13.2 RDW Std Deviation (37.0 - 51.0 fL) 42.5 Plt Count (150 - 450 K/mm3) 230 MPV (6.7 - 11.0 fL) 10.7 Neut % (Auto) (39.0 - 69.0 %) 73.8 H Lymph % (Auto) (25.0 - 55.0 %) 17.7 L [place] % (Auto) (0.0 - 10.0 %) 7.2 Eos % (Auto) (0.0 - 5.0 %) 0.6 Baso % (Auto) (0.0 - 1.0 %) 0.3 Neut # (Auto) (1.8 - 7.7 K/mm3) 7.70 Lymph # (Auto) (1.0 - 5.0 K/mm3) 1.85 [place] # (Auto) (0 - 0.8 K/mm3) 0.75 Eos # (Auto) (0.0 - 0.5 K/mm3) 0.06 Baso # (Auto) (0.0 - 0.2 K/mm3) 0.03 Add Manual Diff NO, ONLY SCAN NEEDED Nucleated RBC % (0 - 0 %) 0.0 Nucleated RBCs # (Man) (0.0 - 0.1 K/mm3) 0.00 Platelet Estimate ADEQUATE Plt Morphology Comment NORMAL Morphology Comment NORMAL Results: labs reviewed, vital signs reviewed, cu rrent med profile rev'd Diagnosis, Assessment Plan Free Text DxA P Notes Free text DxA P notes: 1. elevated bp-likely due to pain, cont pain con trol, cont iv vasotec prn 2. POD#1 lap sleeve for morbid obesity-cont melinda rs 3. hypothyroid- 4. gi/dvt ppx-pepcid iv/lovenox will follow Electronically Signed by Mely Winslow MD on at 1745 [facility] #:[id number] END OF REPORT 2021-07-23 09:10:00-00:00 [id number] [facility] PATIENT NAME: ESTHER ROSAS ADMIT DATE: 07/22/21 ACCOUNT NO: [id number] ROOM NO: [id number] AGE: 46 REPORT TYPE: PROGRESS NOTE SEX: F DATE OF : [birth year] ADMITTING PHYSICIAN:Isaiah Warren MD ATTENDING PHYSICIAN:Isaiah Warren MD DATE: 07/23/2021 POSTOPERATIVE PROGRESS NOTE SUBJECTIVE: Postoperative day #1. This is a 46-y ear-old female status post laparoscopic vertical sleeve gastrectomy perform ed by the undersigned on 07/22/2021. Today is her postoperative day #1. T he patient is alert and oriented x3, ambulatory. No complaints. She is a febrile. Vital signs are stable. PHYSICAL EXAMINATION: Centered upon chest, abdom en, and lower extremities. CHEST: Clear to percussion and auscultation bila terally. ABDOMEN: Soft. Bowel sounds normoactive. EXTREMITIES: Full range of motion with negative Homans sign bilaterally. Her general condition was found to be satisfacto ry. PLAN AND RECOMMENDATION: We will initiate on a p ost-gastrectomy clear liquid diet regimen. Reevaluate her in a.m. and proceed as indicated. Dictated By: Isaiah Warren MD WT: PN:RACHELLE/MAINE/MITCH Conf#: [id number]/DID#: [id number] Authenticated by Isaiah Warren MD On 07/27/19 08:46:34 AM at 0846 PATIENT NAME: ESTHER ROSAS 2021-07-22 19:56:00-00:00 [facility] ([facility]) Adult General Consultation REPORT#:[id number] REPORT STATUS: Signed DATE:07/22/21 TIME: 1955 PATIENT: ESTHER ROSAS UNIT #: [id number] ROOM/BED: [address] : 77 AGE: 46 SEX: F ATTEND: Shirin Warren MD ADM AUTHOR: Mely Winslow MD * ALL edits or amendments must be made on the el [email or web address] document * History of Present Illness Requesting Clinician: Dr. Warren Reason for consult: elevated bp Chief complaint: morbid obesity HPI: s/p lap sleeve earlier, seen in the [facility]ia very room, c/o abd pain, no nausea, no cp/sob, not burping yet History - Adult longitudinal Past medical history: Reports: Thyroid disorder. Additional medical history: morbid obesity Past surgical history: Reports: Appendectomy, Cholecystectomy. Family history: Reports: Diabetes. Smoking status: Smoking status for patients 13 years old or old er: Never Smoker Other social history: Good social support Allergies: Coded Allergies: No Known Allergies (04/27/21) Review of Systems All systems rev neg: except as marked Objective VS/I O: Last Documented: Result Date Time Pulse Ox 92 07/22 1940 B/P 136/87 07/22 1940 B/P Mean 103.3 07/22 1940 Temp 99.0 07/22 1940 Pulse 75 07/22 1940 Resp 16 07/22 1940 O2 Delivery Nasal cannula 07/22 111 O2 Flow Rate 3 07/22 1115 PATIENT WEIGHT: Weight (lb): 347 Weight (oz): 10.7 Weight (kg): 157.700 General appearance: alert, awake Head/Eyes: normal conjunctiva/sclera ENT: dry mucosal membrane Cardiovascular: regular rate rhythm, normal hear t sounds Respiratory: aerating well Abdomen: decreased bowel sounds, soft Musculoskeletal: painless range of motion Neuro/BONE CHAR OPERATOR: alert, oriented X 3 Skin: dry Psychiatry: normal affect Results Findings/Data: Laboratory Tests: 07/22 07/22 0650 0551 Chemistry POC Glucose (74 - 106 mg/dL) 91 Serology SARS-CoV-2 Ag (Rapid) (NEGATIVE) NEGATIVE Results: labs reviewed, vital signs reviewed, cu rrent med profile rev'd Diagnosis, Assessment Plan Free Text DxA P Notes Free Text DxA P Notes: 1. elevated bp-likely due to pain, pain control, iv vasotec prn 2. POD#0 lap sleeve for morbid obesity-npo/ivf, iv dilaudid prn, encourage ambulation, start clears tomorrow if stable 3. hypothyroid-check tsh 4. gi/dvt ppx-pepcid iv/scd start lovenox tomorr ow will follow Electronically Signed by Mely Winslow MD on at 2005 RPT #:[id number] END OF REPORT 2021-07-22 12:29:00-00:00 [facility] ([facility]) Post Anesthesia Evaluation REPORT#:[id number] REPORT STATUS: Signed DATE:07/22/21 TIME: 1229 PATIENT: ESTHER ROSAS UNIT #: [id number] ROOM/BED: : 77 AGE: 46 SEX: F ATTEND: Shirin Warren MD ADM AUTHOR: Dulce Emmanuel MD * ALL edits or amendments must be made on the el [employer]/computer document * Post Anesthesia Evaluation Anes. changes from pre-op eval Anesthetic: GETA Surgery: laparoscopic sleeve gastrectomy Date: 07/22/21 Level of consciousness: noé ent awake, able to answer questions, participate in this eval. Neurological assessment: Neuromuscular block: resolved as expected Musculoskeletal: moves all extremities, sensati on intact, returned to pre- status Vital signs: Last Documented: Result Date Time Pulse Ox 94 07/22 1115 B/P 160/90 07/22 1115 O2 Delivery Nasal cannula 07/22 1115 O2 Flow Rate 3 07/22 1115 Pulse 74 07/22 1115 Resp 16 07/22 1115 Temp 36.7 07/22 0941 Cardiovascular: CV system stable, vital signs st able Respiratory/Airway: respiratory system stable Pain: adequately controlled, pain med. administe red Hydration: adequate Temp status: normothermic Presence of N/V: no Anesthesia complications: no Other changes requiring f/u: none Conclusions: no apparent anes. issues Electronically Signed by Dulce Emmanuel MD on at 1230 RPT #:[id number] END OF REPORT 2021-07-22 09:28:00-00:00 [id number] [facility] PATIENT NAME: ESTHER ROSAS ADMIT DATE: 07/22/21 ACCOUNT NO: [id number] ROOM NO: [facility] AGE: 46 REPORT TYPE: OPERATIVE REPORT SEX: F DATE OF : 79 ADMITTING PHYSICIAN:Isaiah Warren MD ATTENDING PHYSICIAN:Isaiah Warren MD OPERATION DATE: 07/22/2021 PREOPERATIVE DIAGNOSES: Morbid obesity, obstruct maria sleep apnea, depression, chronic back pain, and hypothyroidism. POSTOPERATIVE DIAGNOSES: Morbid obesity, obstruc tive sleep apnea, depression, chronic back pain, and hypothyroidism. OPERATION PERFORMED: Laparoscopic vertic al sleeve gastrectomy and laparoscopic bilateral TAP block. SURGEON: Dr. Isaiah Warren MANAGER REGIONAL SALES: Licensed surgical instruments inspector, Hao sanchez. ANESTHESIA: General endotracheal anesthesia. ESTIMATED BLOOD LOSS: Approximately 25 mL. DESCRIPTION OF PROCEDURE: With the patient in willoughby pine position after having acquired proper general endo tracheal anesthesia, the entire abdomen was prepped and draped in the usual fashion. The per itoneal cavity was entered with a 5 mm Visiport placed above the __ __ upper quadrant midclavicular line approximately 4 fingerbreadths below costal margin, where by cornell ns of a 30-degree 5 mm laparoscopic camera, the peritoneal cavity was e ntered under direct vision without incident. CO2 insufflated to obtain adeq uate intraabdominal pressure approximately 14 mmHg. Under direct camera visio n, a 15 mm port was placed above the midline supraumbilical region approxim ately 14 cm below the xiphoid process, followed by placement of 5 mm p ort above the right upper quadrant and placement of a third 5 mm port over the most lat eral aspect of the left upper quadrant. A small 0.5 cm incision was performed in the epigastric region that was utilized to displace int o the peritoneal cavity, the 5 mm laparoscopic liver Severo retractor. The patient was then placed in reverse Trendelenburg position and the liver retra cted cephalad exposing the GE junction and the angle of His. Careful inspection of the abdominal cavi ty was then carried out. Pertinent finding was the presence of extensive peritoneal adhesions from previous pelvic surgery. No evidence of any kind of mechanical bowel obstruction. Therefore, these adhesions did not require to be lysed since they were out of the surgical site with no evidence o f any other pathology. Other findings were the presence of hepatosplenomegaly and extensive intraabdominal visceral fat. A 38-[place] mariel ugie calibration catheter was first introduced into the stomach through the mouth all the wa y up to the prepyloric region and left taut with the lesser curvature serving as a temp late for the creation of the PATIENT NAME: ESTHER ROSAS vertical sleeve gastrectomy. Inspection of the h iatus revealed no evidence of hiatal hernia. We therefore commenced our dissection approximately 4 cm to 5 cm proximal from the pylorus at the greater curvatu re where the gastroepiploic vessels as well as short gastric vessels were ca refully divided with a 5 mm LigaSure device all the way up to the level of t he angle of His. Having mobilized the entire fundus and greater curvatur e of the stomach, I then proceeded to perform a vertical sleeve g astrectomy with 7 consecutive Endo-BIBI cuts utilizing Endo-BIBI stap le device, black loads with single strips as well as purple load with single strips completing the sl eeve gastrectomy. Having verified that the gastric remnant staple line wa s water initial tight, the 38-[place] bougie calibration catheter wa s then removed without incident. Small bleeding points of the gastric remnant s taple line were controlled by means of the application of surgical Weck clips as well a s liquid fibrin glue. The specimen consisting of appro ximately 80% of stomach was then retrieved from the peritoneal cavity through the 15 mm portal fasci al defect site and sent to pathology for further identification. Having acc omplished this, we then proceeded to perform a bilateral TAP block with total amount of 40 mL of ropivacaine under direct cam era vision at the level of the right and left petit triangle. A total amount on the right side was i nfiltrated with 20 mL of ropivacaine between the laye rs of the internal oblique muscle and the transverse abdominis muscle on the right and left upper kennedi drant respectively. Having completed this, we then proc eeded to close the 15 mm portal fascial defect site with interrupted cglmal-pp-ewleb suture of #1 Vi cryl utilizing laparoscopic Storz needle. CO2 was then expelled from the abd ominal cavity. All ports removed and the wound then closed. The s kin was then reapproximated and closed with subcuticular suture of 4-0 Monocryl. Needle , lap, and instrument counts were reported to me being accurate. The patient tolerated very well the procedure, subsequently sent to recovery room in stable condition. Dictated By: Isaiah Warren MD WT: OP:RACHELLE/MAINE/MITCH Conf#: [id number]/DID#: [id number] Authenticated by Isaiah Warren MD On 07/27/19 08:46:33 AM at 0846 PATIENT NAME: ESTHER ROSAS 2021-07-22 09:19:00-00:00 [facility] ([facility]) Brief Op [place] REPORT#:[id number] REPORT STATUS: Signed DATE:07/22/21 TIME: 918 PATIENT: ESTHER ROSASBETH UNIT #: [id number] ROOM/BED: : 77 AGE: 46 SEX: F ATTEND: Shirin Warren MD ADM AUTHOR: Isaiah Warren MD * ALL edits or amendments must be made on the el [employer]/computer document * Op/Inv Proc Note - Brief Pre-procedure diagnosis: MO/ESTRELLITA/DEPRESSION/HYPOTHYROIDISM/CHRONIC BACK PA IN. Post-procedure diagnosis: same as pre procedure dx Procedures performed: LAP VSG. Primary Surgeon: Jessica WARREN MD. Traveling Storekeeper(s): LEVI SPEAR. Anesthesia: general anesthesia Findings: EXTENSIVE PELVIC ADHESIONS/HEPATOMEGALY/EXTYENSI VE VICERAL FAT. Complications: none Estimated blood loss in ml's: APPROX 25CC. Specimens removed/altered: STOMACH APPROX 80% Drain(s): None Tube(s): none Implant(s): none Approach: laparoscopic Wound class: clean-contaminated Disposition: PACU, MEDSURG Electronically Signed by Isaiah Warren MD on 0 07/22/21 at 0922 [facility] #:[id number] END OF REPORT 2021-05-03 14:16:00-00:00 [id number] [facility] PATIENT NAME: ESTHER ROSAS ADMIT DATE: 05/03/21 ACCOUNT NO: [id number] ROOM NO: AGE: 46 REPORT TYPE: OPERATIVE REPORT SEX: F DATE OF : 79 ADMITTING PHYSICIAN: ATTENDING PHYSICIAN:Isaiah Warren MD OPERATION DATE: 05/03/2021 FINAL DIAGNOSES: Hiatal hernia, superficial hemo rrhagic gastritis, and gastroesophageal reflux disease. PREOPERATIVE DIAGNOSIS: POSTOPERATIVE DIAGNOSIS: PROCEDURE PERFORMED: Esophagogastroduodenoscopy with antral gastric biopsy. SURGEON: Isaiah Warren MD MANAGER REGIONAL SALES: ANESTHESIA: MAC conscious IV sedation. PROCEDURE IN DETAIL: With the patient in the lef t lateral decubitus position after having acquired proper IV sedation , the oropharynx was carefully sprayed with Hurricaine solution. The mouthpiece was the n placed and the gastroscope was then gradually advanced from the oropharynx into the esophagus; gastric chamber; first, second, and third portion of the duodenum. Pertinent findings were the presence of a grade I to II reflux esop hagitis involving the lower third of esophageal mucosa pattern with no evide nce of peptic ulcerations at this site. The gastroscope was then further adva nced into the gastric chamber where retroflexion corroborated the pres ence of a moderate-sized hiatal hernia defect with no evidence of peptic ulcerations. T he scope was then anteflexed and further advanced into e distal gastric chamber. Pertinent finding was the presence of extensive petechiae areas at the ant ral region consistent with superficial hemorrhagic gastritis. A punch shot biopsy was obtained from the antrum and sent to pathology for further bacteri ological survey specifically requested survey for Helicobacter pylori from th is biopsy site. The scope was then further advanced into the duodenum, the ent desiree remaining duodenal C-loop mucosa pattern was found to be within normal [place] its. Having corroborated this finding and having ascertained adequate hemostas is from the biopsy site, we proceeded then to a total withdrawal of the endo scope. The patient tolerated very well the procedure, sub sequently sent to recovery room in stable condition. Dictated By: Isaiah Warren MD WT: OP:RACHELLE/MAINE/MITCH PATIENT NAME: ESTHER ROSAS 39 Conf#: [id number]/DID#: [id number] Authenticated by Isaiah Warren MD On 05/10/19 08:17:13 AM at 0817 PATIENT NAME: ESTHER ROSAS 39 2021-05-03 09:03:00-00:00 [facility] ([facility]) Pre-Anesthesia Evaluation REPORT#:[id number] REPORT STATUS: Signed DATE:05/03/21 TIME: 902 PATIENT: ESTHER ROSAS UNIT #: [id number] ROOM/BED: : 77 AGE: 46 SEX: F ATTEND: Randy Warren MD ADM AUTHOR: Stormy Julian MD * ALL edits or amendments must be made on the [email or web address] document * Pre-Anesthesia Evaluation Pre-Anesthesia Evaluation ORM Surgeries: Surgery Date and Time: 05/03/2021 1015 Primary Procedure: ESOPHAGOGASTRODUODENOSCOPY W ITH BX Pre-op diagnosis: MO prebariatric sx Anesthesia plan discussed: [x] General [] Spinal [] Epidural [] Nerve Block /IV Regional [] MAC - Medical Necessity: [] Therapeutic drug monitoring secondary or int egrall to propofol use [] Strong possibility of expansion of procedure Successful procedure without MAC unlikely due to : [] History of severe anxiety, panic attacks, an d/or phobias [] History of low pain threshold [] History of chronic severe pain [] Other - See patient's history/diagnosis/rosario rbidities ASA Physical Status: 3 Medications: Home Medications: Medication Dose/Rte/Freq Days Qty Entered Last Max Daily Dose Reviewed LEVOTHYROXINE 75 MCG PO DAILY 04/27/21 (SYNTHROID) 1410 Strength: 75 MCG TAB LIOTHYRONINE (CYTOMEL) 5 MCG PO DAILY 04/27/21 Strength: 5 MCG TAB 1412 SERTRALINE (ZOLOFT) 200 MG PO BEDTIME 04/27/21 Strength: 100 MG TAB 1412 CHOLECALCIFEROL 2,000 UNITS PO DAILY 04/27/21 (VITAMIN D3) 1413 (VITAMIN D3) Strength: 2,000 UNIT CAP Additional information: npo adeq History Hx of anesthetic problems: Hx of anesthetic problems: no Past medical history: Neuro: MDD/anx Endocrine: thyroid (Harry), MO (BMI>55) Past surgical history: appen dectomy, cholecystectomy, hysterectomy (partial), r breast lumpectomy, r oophorectomy Past Family History: FATHER Family History: Unknown MOTHER Family History: Unknown Allergies: Coded Allergies: No Known Allergies (04/27/21) Physical Exam Vital signs: Last Documented: Result Date Time O2 Delivery Simple mask 05/03 1054 O2 Flow Rate 5 05/03 1054 Pulse Ox 100 05/03 1050 B/P 117/75 05/03 1050 Temp 36.1 05/03 1050 Pulse 57 05/03 1050 Resp 16 05/03 1050 Airway: adequate Mallampati Class: III Respiratory: clear to auscultation Cardiovascular: regular rate and rhythm Additional information: 168 cm 156 kg Results Findings/Data: Laboratory Tests Test Result Date Time Serology SARS-CoV-2 Ag (Rapid) (NEGATIVE) NEGATIVE 05/03 0700 Additional Information Risks/benefits/consents: The following plan including risks/benefits/alternatives/complications discussed with accepted by: [x] Patient []Parent [] Guardian: [] Via Printer Assistant TIVA for ASA 3 OP EGD Electronically Signed by Stormy Julian MD on 05/03 at 1320 RPT #:[id number] END OF REPORT
[2022-11-01 12:57] LABS: Specific Gravity 1.018 (1.005-1.030)
[2022-11-01 13:18] LABS: Albumin 3.2 g/dL (3.4-5.0); Bilirubin Total 0.3 mg/dL (0.2-1.0); Potassium 4.1 mEq/L (3.5-5.1); Protein, Total 6.8 g/dL (6.4-8.2)
[2022-11-01 13:19] LABS: Absolute Lymphocytes (CBC) 2.6 K/uL (0.7-4.9); Hematocrit 35.8 % (36.0-45.0); Lymphocytes % 35.4 % (15.3-44.8); MCV 90.8 fL (80-100); RBC Red Blood Cell Count 3.94 M/uL (3.86-4.86)
--- NOTE | 2022-11-01 13:49 | RAD REPORT ---
EXAM DESCRIPTION: CT - Head Brain Wo Cont - 11/01/2022 12:59 pm CLINICAL HISTORY: HEADACHE COMPARISON: No comparisons TECHNIQUE: Noncontrast head CT images were obtained without IV contrast. Multiplanar reformats were generated and reviewed. All CT scans are performed using dose optimization technique as appropriate and may include automated exposure control or mA/KV adjustment according to patient size. FINDINGS: The high left parietal cortical/subcortical encephalomalacia, extending to the ependymal m argin, with overlying craniotomy. No intracranial hemorrhage, mass, or edema. Midline structures are unremarkable. Normal ventricular caliber for age. Palmer-white matter differentiation elsewhere is preserved, without evidence of acute infarct. No abnor mal extra-axial fluid collections. Mastoid air cells and visualized portions of the paranasal sinuses are clear. No acute bony findings. IMPRESSION: No evidence of an acute intracranial process. Left parietal encephalomalacia likely related to prior surgical intervention.
--- NOTE | 2022-11-01 13:54 | ER ---
Nurse's Notes [facility] Name: Esther Zimmer Age: 47 yrs Sex: Female : 1975 Arrival Date: 11/01/2022 Time: 12:07 Bed 16 Private MD: Opal Harden Diagnosis: Headache Presentation: 11/01 12:14 Chief complaint: Patient states: That she was sent to the ED for low HGB. Pt states cm10 that her HGB was around 7. Pt reports that she has had a headache X2 weeks and has been more tired than normal. Pt states that she had a brain tumor removed Jun 22. Coronavirus screen: Vaccine status: Patient reports receiving the 2nd dose of the covid vaccine. Client denies travel out of the [place] in the last 14 days. At this time, the client does not indicate any symptoms associated with coronavirus-19. Ebola Screen: Patient denies travel to an Ebola-affected area in the 21 days before illness onset. No symptoms or risks identified at this time. Initial Sepsis Screen: Does the patient meet any 2 criteria? No. Patient's initial sepsis screen is negative. Does the patient have a suspected source of infection? No. Patient's initial sepsis screen is negative. Risk Assessment: Do you want to hurt yourself or someone else? Patient reports no desire to harm self or others. Onset of symptoms was November 01, 2022. 12:14 Method Of Arrival: Ambulatory cm10 12:14 Acuity: CARMITA 3 cm10 Triage Assessment: 12:16 General: Appears in no apparent distress. comfortable, Behavior is calm, cooperative. cm10 Pain: Complains of pain in head Pain currently is 4 out of 10 on a pain scale. Pain began 2 weeks Is intermittent. Historical: - Allergies: 12:16 No Known Drug Allergies; cm10 - Home Meds: 12:30 bupropion HCl 150 mg Oral Tb24 1 tab once daily [Active]; levothyroxine 13 mcg/mL oral eh3 solution [Active]; Zoloft 100 mg Oral tab 1 tab once daily [Active]; - PMHx: 12:16 Anxiety; GALLSTONES; Hypothyroidism; cm10 - PSHx: 12:16 gastric sleeve; partial hysterectomy; tumor in brain removed; cm10 - Immunization history:: Adult Immunizations unknown. - Social history:: Smoking status: Patient denies any tobacco usage or history of. - Family history:: not pertinent. Screenin:30 [facility] ED Fall Risk Assessment (Adult) Score/Fall Risk Level 0 - 2 = Low Risk. Abuse eh3 screen: Denies threats or abuse. Denies injuries from another. Nutritional screening: No deficits noted. Tuberculosis screening: No symptoms or risk factors identified. Assessment: 12:30 General: Appears in no apparent distress. comfortable, Behavior is calm, cooperative, eh3 appropriate for age. Pain: Denies pain. Neuro: Level of Consciousness is awake, alert, obeys commands, Oriented to person, place, time, situation. Cardiovascular: Capillary refill < 3 seconds Patient's skin is warm and dry. Respiratory: Airway is patent Respiratory effort is even, unlabored. GI: Abdomen is round non-distended. Derm: Skin is pink, warm \T\ dry. 13:30 Reassessment: Patient appears in no apparent distress at this time. Patient and/or eh3 family updated on plan of care and expected duration. Pain level reassessed. Patient is alert, oriented x 3, equal unlabored respirations, skin warm/dry/pink. Vital Signs: 12:14 BP 132 / 84; Pulse 67; Resp 16; Temp 97; Pulse Ox 100% on R/A; Weight 118.84 kg; Height cm10 5 ft. 6 in. ; Pain 4/10; 13:15 BP 128 / 78; Pulse 72; Resp 16; Pulse Ox 98% on R/A; eh3 12:14 Body Mass Index 42.29 (118.84 kg, 167.64 cm) cm10 12:14 Pain Scale: Adult cm10 ED Course: 12:09 Patient arrived in ED. mr 12:10 Sudarshan Hobson MD is Attending Physician. rt 12:10 Opal Harden is Private Physician. mr 12:16 Triage completed. cm10 12:16 Arm band placed on Patient placed in an exam room, on a stretcher. cm10 12:30 Jessica Mathew, NELIA is Primary Nurse. eh3 12:30 Patient has correct armband on for positive identification. Bed in low position. Call eh3 light in reach. Pulse ox on. NIBP on. 12:58 CT Head Brain wo Cont Sent. cm10 13:00 CT Head Brain wo Cont In Process Unspecified. EDMS 14:05 No provider procedures requiring assistance completed. IV discontinued, intact, eh3 bleeding controlled, No redness/swelling at site. Pressure dressing applied. Administered Medications: No medications were administered Medication: 14:05 VIS not applicable for this client. eh3 Outcome: 13:54 Discharge ordered by . rt 14:05 Discharged to home ambulatory. eh3 14:05 Condition: stable 14:05 Discharge instructions given to patient, Instructed on discharge instructions, follow up and referral plans. Demonstrated understanding of instructions, follow-up care. 14:07 Patient left the ED. eh3 Signatures: Dispatcher [employer] EDAK Gela Santos mr Jessica Mathew, RN RN 3 Sudarshan Hobson MD MD rt Macie Estrada RN RN cm10 Corrections: (The following items were deleted from the chart) 21:26 14:01 Jessica Mathew, RN is Primary Nurse. eh3 eh3
--- NOTE | 2022-11-01 13:54 | EDPHYS ---
Physician Documentation [facility] Name: Esther Zimmer Age: 47 yrs Sex: Female : 1975 Arrival Date: 11/01/2022 Time: 12:07 Bed 16 Private MD: Opal Harden ED Physician Sudarshan Hobson HPI: 11/01 18:30 This 47 yrs old Female presents to ER via Ambulatory with complaints of rt Abnormal Lab Results. 18:30 Patient presents to the ED with reported anemia to 7.5 while trying to do any blood. rt She went to the clinic, recommended her to come to the ED for further evaluation. Patient also complains of a headache for several weeks, she has about 2 months out from a surgery to remove a meningioma. Denies other acute complaints at this time other than some mild fatigue. Symptoms are moderate in severity, no other aggravating elevating factors.. Historical: - Allergies: 12:16 No Known Drug Allergies; cm10 - Home Meds: 12:30 bupropion HCl 150 mg Oral Tb24 1 tab once daily [Active]; levothyroxine 13 mcg/mL oral eh3 solution [Active]; Zoloft 100 mg Oral tab 1 tab once daily [Active]; - PMHx: 12:16 Anxiety; GALLSTONES; Hypothyroidism; cm10 - PSHx: 12:16 gastric sleeve; partial hysterectomy; tumor in brain removed; cm10 - Immunization history:: Adult Immunizations unknown. - Social history:: Smoking status: Patient denies any tobacco usage or history of. - Family history:: not pertinent. ROS: 18:30 Cardiovascular: Negative for chest pain, palpitations, and edema, Respiratory: Negative rt for shortness of breath, cough, wheezing, and pleuritic chest pain, Abdomen/GI: Negative for abdominal pain, nausea, vomiting, diarrhea, and constipation, Skin: Negative for injury, rash, and discoloration, Psych: Negative for depression, anxiety, suicide ideation, homicidal ideation, and hallucinations. 18:30 Constitutional: Positive for fatigue, Negative for fever. 18:30 Neuro: Positive for headache, Negative for altered mental status. Exam: 18:30 Constitutional: This is a well developed, well nourished patient who is awake, alert, rt and in no acute distress. Head/Face: Normocephalic, atraumatic. Chest/axilla: Normal chest wall appearance and motion. Nontender with no deformity. No lesions are appreciated. Cardiovascular: Regular rate and rhythm with a normal S1 and S2. No gallops, murmurs, or rubs. Normal PMI, no JVD. No pulse deficits. Respiratory: Lungs have equal breath sounds bilaterally, clear to auscultation and percussion. No rales, rhonchi or wheezes noted. No increased work of breathing, no retractions or nasal flaring. Abdomen/GI: Soft, non-tender, with normal bowel sounds. No distension or tympany. No guarding or rebound. No evidence of tenderness throughout. Skin: Warm, dry with normal turgor. Normal color with no rashes, no lesions, and no evidence of cellulitis. MS/ Extremity: Pulses equal, no cyanosis. Neurovascular intact. Full, normal range of motion. Neuro: Awake and alert, GCS 15, oriented to person, place, time, and situation. Cranial nerves II-XII grossly intact. Motor strength 5/5 in all extremities. Sensory grossly intact. Cerebellar exam normal. Normal gait. Psych: Awake, alert, with orientation to person, place and time. Behavior, mood, and affect are within normal limits. Vital Signs: 12:14 BP 132 / 84; Pulse 67; Resp 16; Temp 97; Pulse Ox 100% on R/A; Weight 118.84 kg; Height cm10 5 ft. 6 in. ; Pain 4/10; 13:15 BP 128 / 78; Pulse 72; Resp 16; Pulse Ox 98% on R/A; eh3 12:14 Body Mass Index 42.29 (118.84 kg, 167.64 cm) cm10 12:14 Pain Scale: Adult cm10 MDM: 12:23 Patient medically screened. rt 18:30 Differential Diagnosis Anemia, hemorrhage, intracranial hemorrhage, spuriously lab rt finding. Data reviewed: vital signs, nurses notes, lab test result(s), radiologic studies. Management of patient was discussed with the following: Primary Care Provider: Discussed with clinic Prior to the patient's arrival. Counseling: I had a detailed discussion with the patient and/or guardian regarding: the historical points, exam findings, and any diagnostic results supporting the discharge/admit diagnosis, lab results, radiology results, the need for outpatient follow up. 11/01 12:37 Order name: CBC with Diff; Complete Time: 13:32 rt 11/01 12:37 Order name: CMP; Complete Time: 13:32 rt 11/01 12:37 Order name: Type And Screen; Complete Time: 13:32 rt 11/01 12:37 Order name: Test, Urine; Complete Time: 13:32 rt 11/01 12:37 Order name: CT Head Brain wo Cont; Complete Time: 13:51 rt Administered Medications: No medications were administered Disposition Summary: 11/01/22 13:54 Discharge Ordered Location: Home rt Problem: new rt Symptoms: are unchanged rt Condition: Stable rt Diagnosis - Headache rt Followup: rt - With: Private Physician - When: 2 - 3 days - Reason: Discharge Instructions: - Discharge Summary Sheet rt - General Headache Without Cause rt Forms: - Work release form eh3 - Medication Reconciliation Form rt - Thank You Letter rt - Antibiotic Education rt - Prescription Opioid Use rt - [email or web address] rt Signatures: Dispatcher [employer] Jessica Castro, NELIA RN 3 Sudarshan Hobson MD MD rt Macie Estrada RN RN cm10
[2022-11-01 14:12] VITALS: BP 132/84; TEMP 97; O2SAT 100
== END 2022-11-01 14:07 | disposition home or self-care (01) ==
LOC: ER 12:07
DX: R51.9 Headache, unspecified (principal)
CPT/HCPCS: 36415; 70450; 80053; 81025; 85025; 86850; 86900; 86901

== ENCOUNTER 2024-03-02 00:39 | Emergency (ER) | payer BC, SELFPAY ==
[2024-03-02] MEDS ORDERED: LIDOCAINE VISCOUS 2% 10ML ORAL SOLN ONE (01:31)
[2024-03-02] MEDS ORDERED: HYDROCODONE/APAP 10/325 TAB ONE (01:31)
[2024-03-02] MEDS ORDERED: MAGNES/ALUMIN/SIMET 30ML UCUP ONE (01:31)
[2024-03-02] MEDS ORDERED: FAMOTIDINE 20 MG/2 ML VIAL IV ONE (02:13)
[2024-03-02] MEDS ORDERED: ONDANSETRON 4 MG/2 ML VIAL ONE (02:13)
[2024-03-02] MEDS ORDERED: NA CHLORIDE 0.9% 1,000 ML ONE (02:14)
[2024-03-02 03:00] LABS: Absolute Basophils 0.1 K/uL (0-0.5); Absolute Eosinophils 0.2 K/uL (0-0.5); Absolute Lymphocytes (CBC) 2.3 K/uL (0.7-4.9); Absolute Monocytes 0.6 K/uL (0.1-1.3); Absolute Neutrophil 7.1 K/uL (1.8-8.0); Basophils % 1.1 % (0-1.3); Eosinophils % 1.9 % (0-4.4); Hematocrit 32.8 % (36.0-45.0); Hemoglobin 11.2 g/dL (12.0-15.0); Lymphocytes % 22.1 % (15.3-44.8); MCH 30.4 pg (27.0-35.0); MCHC 34.1 g/dL (32.0-36.0); MCV 89.1 fL (80-100); MPV 8.2 fL (7.6-11.3); Monocytes % 6.1 % (3.3-12.3); Neutrophils % 68.8 % (41.7-73.7); Platelets 223 thou/uL (152-406); RBC Red Blood Cell Count 3.68 M/uL (3.86-4.86); Red Cell Distribution Width 13.2 % (12.1-15.2)
[2024-03-02 03:16] LABS: Albumin 2.8 g/dL (3.4-5.0); Albumin/Globulin Ratio 0.7 (1.1-1.8); Anion Gap 7.6 mEq/L (5.0-15.0); Bilirubin Total 0.5 mg/dL (0.2-1.0); Globulin 3.9 g/dL (2.3-3.5); Potassium 3.6 mEq/L (3.5-5.1); Protein, Total 6.7 g/dL (6.4-8.2)
--- NOTE | 2024-03-02 05:10 | RAD REPORT ---
CT ABDOMEN PELVIS WITH IV CONTRAST CLINICAL INDICATION: Abdominal pain COMPARISON: None TECHNIQUE: CT images of the abdomen and pelvis obtained following administration of intravenous contr ast. Multiplanar reformats were provided. Dose-optimization techniques such as automated exposure control, iterative reconstruction, and mA and/or kV adjustment for patient size was utilized for this examination. FINDINGS: Exam is degraded by patient's body habitus. LOWER CHEST: Unremarkable. LIVER: Liver is prominent in size. No focal lesion. BILIARY: Unremarkable. PANCREAS: Unremarkable. SPLEEN: Mildly enlarged, measuring up to 13.8 cm in AP dimension. No focal lesion. ADRENALS: Unremarkable. KIDNEYS/URETERS: Apparent decreased nephrogram at the posterior and inferior aspect of both kidneys i s likely artifactual in nature due to 4 photon starvation artifact related to body habitus. No nephrolithiasis or hydroureteronephrosis. STOMACH: Status post gastric bypass surgery. BOWEL: Unremarkable. APPENDIX: Appendix is not definitively visualized. No focal inflammation in right lower quadrant to s uggest acute appendicitis. MESENTERY/PERITONEUM: Unremarkable. RETROPERITONEUM: No adenopathy. URINARY BLADDER: Unremarkable. REPRODUCTIVE: Unremarkable. VASCULAR: Unremarkable. ABDOMINAL/PELVIC WALL: Unremarkable. BONES: Mild multilevel degenerative changes are present in the spine. Borderline congenital lumbar ca nal narrowing secondary to short pedicles. Suggestion of multilevel superimposed disc bulge with resultant varying degree of canal stenosis, limitedly evaluated due to artifact related to body habit us. No compression deformity, nor osteolytic or sclerotic lesion. IMPRESSION: 1. Mild hepatosplenomegaly. 2. Borderline congenital lumbar canal narrowing exacerbated by superimposed multilevel disc bulge w ith resultant varying degree of canal stenosis. This would be better evaluated with routine MR lumbar spine if clinically indicated. Electronically signed by: Carmen Marino MD 03/02/2024 05:01 AM CDT Due to temporary technical issues with the PACS/[employer] reporting system, reports are being zohaib d by the in-house radiologist without review as a courtesy to ensure prompt reporting the interpreting radiologist is fully responsible for the content of the report. Transcribed Date/Time: 03/02/2024 5:10 AM
--- NOTE | 2024-03-02 05:20 | EDPHYS ---
Physician Documentation [facility] Name: Esther Zimmer Age: 49 yrs Sex: Female : 1975 Arrival Date: 03/02/2024 Time: 00:39 Bed 4 Private MD: ED Physician Sudarshan Hobson HPI: 03/02 06:55 This 49 yrs old Female presents to ER via Ambulatory with complaints of Neck rt and Upper Back Pain, Abdominal Pain. 06:55 Patient presents to the ED with burning epigastric pain as well as mid back pain rt starting tonight. Denies that is worse after eating. Denies nausea, vomiting, acute complaints, symptoms are moderate in severity, no other aggravating alleviating factors.. 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 - Infectious Disease History:: Denies. - Social history:: Smoking status: Patient denies any tobacco usage or history of. - Family history:: not pertinent. ROS: 06:55 Constitutional: Negative for fever, chills, and weight loss, Cardiovascular: Negative rt for chest pain, palpitations, and edema, Respiratory: Negative for shortness of breath, cough, wheezing, and pleuritic chest pain, MS/Extremity: Negative for injury and deformity, Skin: Negative for injury, rash, and discoloration, Neuro: Negative for headache, weakness, numbness, tingling, and seizure, 06:55 Abdomen/GI: Positive for abdominal pain, Negative for vomiting, 06:55 Back: Positive for pain at rest, Negative for injury or acute deformity, Exam: 06:55 Constitutional: This is a well developed, well nourished patient who is awake, alert, rt and in no acute distress. Head/Face: Normocephalic, atraumatic. Chest/axilla: Normal chest wall appearance and motion. Nontender with no deformity. No lesions are appreciated. Cardiovascular: Regular rate and rhythm with a normal S1 and S2. No gallops, murmurs, or rubs. Normal PMI, no JVD. No pulse deficits. Respiratory: Lungs have equal breath sounds bilaterally, clear to auscultation and percussion. No rales, rhonchi or wheezes noted. No increased work of breathing, no retractions or nasal flaring. Skin: Warm, dry with normal turgor. Normal color with no rashes, no lesions, and no evidence of cellulitis. 06:55 Abdomen/GI: Mild tenderness to the epigastrium without rebound, guarding, distention, 06:55 Back: Mild tenderness diffusely lumbar region, no step-offs, Vital Signs: 01:01 BP 122 / 97; Pulse 87; Resp 17; Temp 98; Pulse Ox 99% ; Weight 145.15 kg; Height 5 ft. dd2 6 in. ; Pain 9/10; 02:35 BP 128 / 86; Pulse 84; Resp 16; Pulse Ox 99% ; dd2 03:19 BP 121 / 83; Pulse 81; Resp 16; Pulse Ox 98% ; dd2 04:38 BP 112 / 78; Pulse 79; Resp 15; Pulse Ox 99% ; dd2 01:01 Body Mass Index 51.65 (145.15 kg, 167.64 cm) dd2 01:01 Pain Scale: Adult dd2 MDM: 01:02 Medical Screening Exam initiated rt 06:55 Differential diagnosis: Gastritis, pancreatitis, disc bulge, musculoskeletal pain. Data rt reviewed: vital signs, nurses notes, lab test result(s), radiologic studies. Independent interpretation of the following test(s) in the Emergency Department CT Scan: My interpretation is No bowel obstruction syndrome interpretation of CT scan images. Counseling: I had a detailed discussion with the patient and/or guardian regarding the historical points, exam findings, and any diagnostic results supporting the discharge/admit diagnosis, lab results, radiology results, the need for outpatient follow up, to return to the emergency department if symptoms worsen or persist or if there are any questions or concerns that arise at home. Response to treatment: the patient's symptoms have markedly improved after treatment. 03/02 01:08 Order name: CBC with Diff; Complete Time: 03:30 rt 03/02 01:08 Order name: CMP; Complete Time: 03:30 rt 03/02 01:08 Order name: Lipase; Complete Time: 03:30 rt 03/02 01:08 Order name: CT Abd/Pelvis - IV Contrast Only rt 03/02 01:08 Order name: IV Saline Lock; Complete Time: 02:27 rt 03/02 01:08 Order name: Labs collected and sent; Complete Time: 02:40 rt Administered Medications: 01:35 Drug: Oxford PO 10 mg-325 mg 1 tabs PO once Route: PO; dd2 02:05 Follow up: Response: No adverse reaction dd2 01:35 Drug: GI Cocktail without - (Maalox PO 30 ml, Lidocaine Mucous Membrane 2 % 15 dd2 ml) PO once Route: PO; 02:05 Follow up: Response: No adverse reaction dd2 02:16 Drug: Ondansetron IVP 4 mg IVP once; over 2 minutes Route: IVP; Site: right forearm; ha1 02:31 Follow up: Response: No adverse reaction dd2 02:17 Drug: NS 0.9% IV 1000 ml IV at 1000 ml once; to be given as a bolus over 60 minutes ha1 Route: IV; Rate: 1000 ml; Site: right forearm; 02:32 Follow up: Response: No adverse reaction dd2 03:20 Follow up: IV Status: Completed infusion; IV Intake: 1000ml dd2 02:18 Drug: Famotidine IVP 20 mg IVP once; dilute with 10 mL 0.9% NaCl; give over 2 minutes ha1 Route: IVP; Site: right forearm; 02:33 Follow up: Response: No adverse reaction dd2 Disposition Summary: 03/02/24 05:20 Discharge Ordered Notes: Location: Home rt Problem: new rt Symptoms: have improved rt Condition: Stable rt Diagnosis - Low back pain rt Followup: rt - With: Private Physician - When: 2 - 3 days - Reason: Discharge Instructions: - Discharge Summary Sheet rt - Acute Back Pain, Adult rt Forms: - Medication Reconciliation Form rt - Antibiotic Education rt - Prescription Opioid Use rt - Patient Portal Instructions rt - Leadership Thank You Letter rt Prescriptions: - Tramadol 50 mg Oral Tablet - take 1 tablet ORAL route every 8 hours as needed; 12 tablet; Refills: 0, rt Product Selection Permitted Signatures: Dispatcher [employer] Yessy Erwin RN RN ha1 Sudarshan Hobson MD MD rt MARIO COE RN RN dd2
--- NOTE | 2024-03-02 05:20 | ER ---
Nurse's Notes [facility] Name: Esther Zimmer Age: 49 yrs Sex: Female : 1975 Arrival Date: 03/02/2024 Time: 00:39 Bed 4 Private MD: Diagnosis: Low back pain Presentation: 03/02 01:01 Chief complaint: Patient states: Pt c/o middle back pain and epigastric burning x2 dd2 days. Coronavirus screen: At this time, the client does not indicate any symptoms associated with coronavirus-19. Ebola Screen: No symptoms or risks identified at this time. Initial Sepsis Screen: Does the patient meet any 2 criteria? No. Patient's initial sepsis screen is negative. Does the patient have a suspected source of infection? No. Patient's initial sepsis screen is negative. Risk Assessment: Do you want to hurt yourself or someone else? Patient reports no desire to harm self or others. Onset of symptoms was February 29, 2024. 01:01 Method Of Arrival: Ambulatory dd2 01:01 Acuity: CARMITA 3 dd2 Triage Assessment: 01:03 General: Appears uncomfortable, Behavior is calm, cooperative, appropriate for age. dd2 Pain: Complains of pain in lumbar area Pain does not radiate. Pain currently is 9 out of 10 on a pain scale. EENT: No deficits noted. No signs and/or symptoms were reported regarding the EENT system. Neuro: Level of Consciousness is awake, alert, obeys commands, Oriented to person, place, time, situation, Appropriate for age Gait is steady, Speech is normal. Cardiovascular: Patient's skin is warm and dry. Respiratory: Airway is patent Respiratory effort is even, unlabored, Respiratory pattern is regular, symmetrical. GI: Abdomen is round non-distended, Reports epigastric pain. GI: Abd is soft and non tender. : No deficits noted. No signs and/or symptoms were reported regarding the genitourinary system. Derm: No deficits noted. No signs and/or symptoms reported regarding the dermatologic system. Musculoskeletal: Circulation, motion, and sensation intact. Range of motion: intact in all extremities, Reports pain in lumbar area. 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 - Infectious Disease History:: Denies. - Social history:: Smoking status: Patient denies any tobacco usage or history of. - Family history:: not pertinent. Screenin:10 [facility] ED Fall Risk Assessment (Adult) History of falling in the last 3 months, dd2 including since admission No falls in past 3 months (0 pts) Confusion or Disorientation No (0 pts) Intoxicated or Sedated No (0 pts) Impaired Gait No (0 pts) Mobility Assist Device Used No (0 pt) Altered Elimination No (0 pt) Score/Fall Risk Level 0 - 2 = Low Risk Oriented to surroundings, Maintained a safe environment, Educated pt \T\ family on fall prevention, incl call for assistance when getting out of bed, Assessed \T\ reinforced patient's understanding of fall precautions, Hourly rounding (assess needs \T\ fall precautionary measures) done. Abuse screen: Denies threats or abuse. Nutritional screening: No deficits noted. Tuberculosis screening: No symptoms or risk factors identified. Assessment: 01:35 Reassessment: SEE TRIAGE ASSESSMENT FOR FULL ASSESSMENT. dd2 Vital Signs: 01:01 BP 122 / 97; Pulse 87; Resp 17; Temp 98; Pulse Ox 99% ; Weight 145.15 kg; Height 5 ft. dd2 6 in. ; Pain 9/10; 02:35 BP 128 / 86; Pulse 84; Resp 16; Pulse Ox 99% ; dd2 03:19 BP 121 / 83; Pulse 81; Resp 16; Pulse Ox 98% ; dd2 04:38 BP 112 / 78; Pulse 79; Resp 15; Pulse Ox 99% ; dd2 01:01 Body Mass Index 51.65 (145.15 kg, 167.64 cm) dd2 01:01 Pain Scale: Adult dd2 ED Course: 00:44 Patient arrived in ED. gm2 00:53 Sudarshan Hobson MD is Attending Physician. rt 01:03 Triage completed. dd2 01:03 Arm band placed on right wrist. Patient placed in an exam room, on a stretcher, on dd2 pulse oximetry. 01:10 Patient has correct armband on for positive identification. Bed in low position. Call dd2 light in reach. Side rails up X 1. Provided Education on: call light, medications, labs. Client placed on continuous cardiac and pulse oximetry monitoring. NIBP monitoring applied. Door closed. Noise minimized. Warm blanket given. Pillow given. Verbal reassurance given. 01:10 No provider procedures requiring assistance completed. dd2 01:35 Missed attempt(s): 22 gauge in left forearm. Bleeding controlled, band aid applied, dd2 catheter tip intact. 02:00 Inserted saline lock: 22 gauge in left forearm, using aseptic technique. Flushed with dd2 10 mL NS. 02:26 MARIO COE, RN is Primary Nurse. dd2 03:56 CT Abd/Pelvis - IV Contrast Only In Process Unspecified. EDMS 06:03 IV discontinued, intact, bleeding controlled, No redness/swelling at site. Pressure dd2 dressing applied. Administered Medications: 01:35 Drug: [place] PO 10 mg-325 mg 1 tabs PO once Route: PO; dd2 02:05 Follow up: Response: No adverse reaction dd2 01:35 Drug: GI Cocktail without - (Maalox PO 30 ml, Lidocaine Mucous Membrane 2 % 15 dd2 ml) PO once Route: PO; 02:05 Follow up: Response: No adverse reaction dd2 02:16 Drug: Ondansetron IVP 4 mg IVP once; over 2 minutes Route: IVP; Site: right forearm; ha1 02:31 Follow up: Response: No adverse reaction dd2 02:17 Drug: NS 0.9% IV 1000 ml IV at 1000 ml once; to be given as a bolus over 60 minutes ha1 Route: IV; Rate: 1000 ml; Site: right forearm; 02:32 Follow up: Response: No adverse reaction dd2 03:20 Follow up: IV Status: Completed infusion; IV Intake: 1000ml dd2 02:18 Drug: Famotidine IVP 20 mg IVP once; dilute with 10 mL 0.9% NaCl; give over 2 minutes ha1 Route: IVP; Site: right forearm; 02:33 Follow up: Response: No adverse reaction dd2 Medication: 04:38 VIS not applicable for this client. dd2 Intake: 03:20 IV: 1000ml; Total: 1000ml. dd2 Outcome: 05:20 Discharge ordered by . rt 06:03 Discharged to home ambulatory, dd2 06:03 Condition: stable 06:03 Discharge instructions given to patient, Instructed on discharge instructions, follow up and referral plans. medication usage, Demonstrated understanding of instructions, follow-up care, medications, Prescriptions given X 1, 06:04 Patient left the ED. dd2 Signatures: Dispatcher [employer] EDMS Yessy Kruse RN RN ha1 Sudarshan Hobson MD MD rt Gertrude Cho 2 MARIO COE RN RN dd2 Corrections: (The following items were deleted from the chart) 06:03 04:38 BP 121 / 83; Pulse 81bpm; Resp 16bpm; Pulse Ox 98%; dd2 dd2
[2024-03-02 15:46] VITALS: TEMP 98
[2024-03-02 15:50] VITALS: BP 112/78; O2SAT 99
== END 2024-03-02 06:04 | disposition home or self-care (01) ==
LOC: ER 00:39
DX: M54.50 Low back pain, unspecified (principal)
CPT/HCPCS: 36415; 74177; 80053; 83690; 85025; 96361; 96374; 96375; 99284; J2405; J7030; Q9967

== ENCOUNTER 2024-07-28 07:27 | Emergency (ER) | payer BC, OTHER, SELFPAY ==
[2024-07-28] MEDS ORDERED: NA CHLORIDE 0.9% 1,000 ML ONE ×2 (07:53→09:58)
[2024-07-28] MEDS ORDERED: ONDANSETRON 4 MG/2 ML VIAL ONE (07:53)
[2024-07-28 08:18] LABS: Absolute Eosinophils 0.2 K/uL (0-0.5); Absolute Lymphocytes (CBC) 1.1 K/uL (0.7-4.9); Absolute Monocytes 0.6 K/uL (0.1-1.3); Absolute Neutrophil 10.9 K/uL (1.8-8.0); Basophils % 0.2 % (0-1.3); Eosinophils % 1.7 % (0-4.4); Hematocrit 40.6 % (36.0-45.0); Hemoglobin 13.7 g/dL (12.0-15.0); Lymphocytes % 8.3 % (15.3-44.8); MCH 29.7 pg (27.0-35.0); MCHC 33.7 g/dL (32.0-36.0); MCV 88.1 fL (80-100); MPV 8.7 fL (7.6-11.3); Monocytes % 4.4 % (3.3-12.3); Neutrophils % 85.4 % (41.7-73.7); Platelets 192 thou/uL (152-406); Red Cell Distribution Width 13.3 % (12.1-15.2)
[2024-07-28 09:14] LABS: Specific Gravity 1.024 (1.005-1.030); Urine Bilirubin NEGATIVE (Negative); Urine Blood Negative (Negative); Urine Clarity Clear (Clear); Urine Color Light-Yellow (Yellow); Urine Glucose NEGATIVE (Negative); Urine Ketones NEGATIVE (Negative); Urine Microscopic Reflex YN NO UMIC; Urine Nitrite NEGATIVE (Negative); Urine Protein NEGATIVE (Negative); Urine Urobilinogen Normal (Normal)
[2024-07-28 09:33] LABS: Blood Morphology Comment NOT SEEN (NOT SEEN); Platelet Estimate ADEQ; Platelets Clumped FEW; White Blood Cell Scan OK (OK)
[2024-07-28 09:58] LABS: Albumin 3.3 g/dL (3.4-5.0); Albumin/Globulin Ratio 0.8 (1.1-1.8); Anion Gap 7.6 mEq/L (5.0-15.0); Bilirubin Total 0.4 mg/dL (0.2-1.0); Globulin 4.1 g/dL (2.3-3.5); Potassium 3.6 mEq/L (3.5-5.1); Protein, Total 7.4 g/dL (6.4-8.2)
[2024-07-28] MEDS ORDERED: MORPHINE 4 MG/ML SYR ONE (10:07)
[2024-07-28] MEDS ORDERED: PROMETHAZINE INJ 25 MG/ML AMP ONE (10:07)
--- NOTE | 2024-07-28 10:45 | ER ---
Nurse's Notes [facility] Name: Esther Zimmer Age: 49 yrs Sex: Female : 1975 Arrival Date: 07/28/2024 Time: 07:27 Bed 16 Private MD: Diagnosis: Foodborne illness, infectious diarrhea, lactic acidosis, dehydration Presentation: 07/28 07:35 Ebola Screen: Patient denies travel to an Ebola-affected area in the 21 days before 1 illness onset. Initial Sepsis Screen: Does the patient meet any 2 criteria? No. Patient's initial sepsis screen is negative. Does the patient have a suspected source of infection? No. Patient's initial sepsis screen is negative. Risk Assessment: Do you want to hurt yourself or someone else? Patient reports no desire to harm self or others. 07:35 Method Of Arrival: Ambulatory [facility] 07:35 Acuity: CARMITA 3 1 07:35 Chief complaint: Patient states: N/V with abdominal cramping. Coronavirus screen: 1 Client denies travel out of the [place] in the last 14 days. At this time, the client does not indicate any symptoms associated with coronavirus-19. 11:07 Onset of symptoms was July 27, 2024. 1 Triage Assessment: 11:06 General: Appears in no apparent distress. Behavior is calm, cooperative, appropriate ll1 for age. GI: Reports cramping, nausea, vomiting. 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 - Infectious Disease History:: Denies. - Social history:: Smoking status: Patient denies any tobacco usage or history of. Screenin:23 [facility] ED Fall Risk Assessment (Adult) History of falling in the last 3 months, ll1 including since admission No falls in past 3 months (0 pts) Confusion or Disorientation No (0 pts) Intoxicated or Sedated No (0 pts) Impaired Gait No (0 pts) Mobility Assist Device Used No (0 pt) Altered Elimination No (0 pt) Score/Fall Risk Level 0 - 2 = Low Risk Maintained a safe environment, Hourly rounding (assess needs \T\ fall precautionary measures) done. Abuse screen: Denies threats or abuse. Nutritional screening: No deficits noted. Tuberculosis screening: No symptoms or risk factors identified. Assessment: 08:15 General: Appears uncomfortable, Behavior is calm, cooperative, appropriate for age. ll1 Pain: Complains of pain in abdomen Quality of pain is described as crampy. GI: Reports lower abdominal pain, upper abdominal pain, cramping, nausea, vomiting. 08:23 Reassessment: No changes from previously documented assessment. Patient and/or family ll1 updated on plan of care and expected duration. Pain level reassessed. Patient is alert, oriented x 3, equal unlabored respirations, skin warm/dry/pink. 09:03 Reassessment: No changes from previously documented assessment. Patient and/or family ss updated on plan of care and expected duration. Pain level reassessed. Patient is alert, oriented x 3, equal unlabored respirations, skin warm/dry/pink. 10:00 Reassessment: No changes from previously documented assessment. Patient and/or family ll1 updated on plan of care and expected duration. Pain level reassessed. Patient is alert, oriented x 3, equal unlabored respirations, skin warm/dry/pink. 11:07 GI: Abdomen is round obese. ll1 Vital Signs: 07:49 BP 144 / 117; Pulse 101; Resp 18; Pulse Ox 99% ; ll1 08:22 Pulse 89; Pulse Ox 99% on R/A; ll1 09:05 BP 138 / 79; Pulse 82; Resp 17; Temp 98; Pulse Ox 100% ; ll1 10:00 BP 140 / 79; Pulse 80; Resp 18; Pulse Ox 100% ; ll1 11:04 BP 154 / 95; Pulse 82; Resp 17; Pulse Ox 98% on R/A; ll1 ED Course: 07:30 Patient arrived in ED. mr 07:32 River Samayoa MD is Attending Physician. sp3 07:35 Jad Morgan, NELIA is Primary Nurse. ll1 07:35 Triage completed. ll1 07:35 Arm band placed on Patient placed in an exam room, on a stretcher. ll1 08:22 Accessed peripheral vein via ultrasound, utilizing dynamic ultrasound technique using ss 20G Nexia IV catheter ,sterile technique, per hospital protocol. Clean \T\ dry. Dressing intact. Good blood return. Flushes easily. L AC. 08:23 Patient has correct armband on for positive identification. Provided Education on: ER ll1 procedures and process. Lights dimmed. Warm blanket given. 09:03 Urinalysis w/ reflexes Sent. ss 11:06 No provider procedures requiring assistance completed. IV discontinued, intact, ll1 bleeding controlled, No redness/swelling at site. Pressure dressing applied. Administered Medications: 08:09 Drug: Ondansetron IVP 4 mg IVP once; over 2 minutes Route: IVP; Site: right antecubital;ll1 09:55 Follow up: Response: No adverse reaction; Nausea is decreased ll1 08:22 Drug: NS 0.9% IV 1000 ml IV at 1 bolus Per protocol; to be given as a bolus over 60 ss minutes Route: IV; Rate: 1 bolus; Site: left antecubital; 09:56 Follow up: Response: No adverse reaction; IV Status: Completed infusion; IV Intake: ll1 1000ml 10:00 Drug: NS 0.9% IV 1000 ml IV at 1 bolus Per protocol; to be given as a bolus over 60 ll1 minutes Route: IV; Rate: 1 bolus; Site: left antecubital; 11:08 Follow up: Response: No adverse reaction; IV Status: Completed infusion; IV Intake: ll1 600ml 10:19 Drug: morphine IVP or IV 4 mg IVP once over 4 mins {Note: pain 9/10 RASS 0.} Route: ll1 IVP; Infused Over: 4 mins; Site: left antecubital; 11:08 Follow up: Response: No adverse reaction; Pain is decreased; RASS: Alert and Calm (0) ll1 10:20 Drug: Promethazine IVP 12.5 mg IVP once {Note: in liter bag of NS.} Route: IVP; Site: ll1 left antecubital; 11:08 Follow up: Response: No adverse reaction; Nausea is decreased; RASS: Alert and Calm (0) ll1 Medication: 11:07 VIS not applicable for this client. ll1 Intake: 09:56 IV: 1000ml; Total: 1000ml. ll1 11:08 IV: 600ml; Total: 1600ml. ll1 Outcome: 10:44 Discharge ordered by . sp3 11:07 Discharged to home ambulatory, ll1 11:07 Condition: stable 11:07 Discharge instructions given to patient, Instructed on discharge instructions, follow up and referral plans. medication usage, Demonstrated understanding of instructions, follow-up care, medications, Prescriptions given X 3, 11:09 Patient left the ED. ll1 Signatures: SantosGela keys, Reg Reg mr Shelley Araujo RN RN ss Jad Morgan RN RN 1 River Samayoa MD MD sp3 Corrections: (The following items were deleted from the chart) : 08:22 Accessed peripheral vein via ultrasound, utilizing dynamic ultrasound technique ss using 20G Nexia IV catheter ,sterile technique, per hospital protocol. Clean \T\ dry. Dressing intact. Good blood return. Flushes easily. ss : 08:22 Accessed peripheral vein via ultrasound, utilizing dynamic ultrasound technique ss using 20G Nexia IV catheter ,sterile technique, per hospital protocol. Clean \T\ dry. Dressing intact. Good blood return. Flushes easily. ss
--- NOTE | 2024-07-28 10:45 | EDPHYS ---
Physician Documentation [facility] Name: Esther Zimmer Age: 49 yrs Sex: Female : 1975 Arrival Date: 07/28/2024 Time: 07:27 Bed 16 Private MD: ED Physician River Samayoa HPI: 07/28 07:47 This 49 yrs old Female presents to ER via Ambulatory with complaints of sp3 Vomiting. 07:47 49-year-old female with history of gallstones, prior pituitary tumor s/p resection, sp3 anxiety, now presents to the ED with chief complaint vomiting and diarrhea and crampy abdominal pain after eating shrimp yesterday. She denies any blood or mucus in her emesis or diarrhea. Abdominal pain is only during bowel movements and not at baseline. She denies any other symptoms including fever, headache, neck pain, chest pain, shortness of breath, extremity pain, syncope, near syncope, travel history or any known sick contacts.. 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 - Infectious Disease History:: Denies. - Social history:: Smoking status: Patient denies any tobacco usage or history of. ROS: 07:49 Constitutional: Negative for fever, chills, and weight loss, Eyes: Negative for injury, sp3 pain, redness, and discharge, ENT: Negative for injury, pain, and discharge, Neck: Negative for injury, pain, and swelling, Cardiovascular: Negative for chest pain, palpitations, and edema, Respiratory: Negative for shortness of breath, cough, wheezing, and pleuritic chest pain, Back: Negative for injury and pain, MS/Extremity: Negative for injury and deformity, Skin: Negative for injury, rash, and discoloration, Neuro: Negative for headache, weakness, numbness, tingling, and seizure, Psych: Negative for depression, anxiety, suicide ideation, homicidal ideation, and hallucinations, Allergy/Immunology: Negative for hives, rash, and allergies, Endocrine: Negative for neck swelling, polydipsia, polyuria, polyphagia, and marked weight changes, 07:49 All other systems are negative, Exam: 07:49 Constitutional: This is a well developed, well nourished patient who is awake, alert, sp3 and in no acute distress. Head/Face: Normocephalic, atraumatic. Eyes: Pupils equal round and reactive to light, extra-ocular motions intact. Lids and lashes normal. Conjunctiva and sclera are non-icteric and not injected. Cornea within normal limits. Periorbital areas with no swelling, redness, or edema. Neck: Trachea midline, no thyromegaly or masses palpated, and no cervical lymphadenopathy. Supple, full range of motion without nuchal rigidity, or vertebral point tenderness. No Meningismus. Chest/axilla: Normal chest wall appearance and motion. Nontender with no deformity. No lesions are appreciated. Cardiovascular: Regular rate and rhythm with a normal S1 and S2. No gallops, murmurs, or rubs. Normal PMI, no JVD. No pulse deficits. Respiratory: Lungs have equal breath sounds bilaterally, clear to auscultation and percussion. No rales, rhonchi or wheezes noted. No increased work of breathing, no retractions or nasal flaring. Back: No spinal tenderness. No costovertebral tenderness. Full range of motion. Skin: Warm, dry with normal turgor. Normal color with no rashes, no lesions, and no evidence of cellulitis. MS/ Extremity: Pulses equal, no cyanosis. Neurovascular intact. Full, normal range of motion. Neuro: Awake and alert, GCS 15, oriented to person, place, time, and situation. Cranial nerves II-XII grossly intact. Motor strength 5/5 in all extremities. Sensory grossly intact. Cerebellar exam normal. Normal gait. Psych: Awake, alert, with orientation to person, place and time. Behavior, mood, and affect are within normal limits. 07:49 Cardiovascular: Heart rate varies between 90 and 100. Clinically not hypotensive or in shock., 07:49 Abdomen/GI: Very mild crampy abdominal pain to deep palpation without peritoneal signs, rebound or guarding. Patient is in no acute distress., Vital Signs: 07:49 BP 144 / 117; Pulse 101; Resp 18; Pulse Ox 99% ; ll1 08:22 Pulse 89; Pulse Ox 99% on R/A; ll1 09:05 BP 138 / 79; Pulse 82; Resp 17; Temp 98; Pulse Ox 100% ; ll1 10:00 BP 140 / 79; Pulse 80; Resp 18; Pulse Ox 100% ; ll1 11:04 BP 154 / 95; Pulse 82; Resp 17; Pulse Ox 98% on R/A; ll1 MDM: 07:32 Medical Screening Exam initiated sp3 07:50 Data reviewed: vital signs, nurses notes, lab test result(s), radiologic studies. ED sp3 course: 49-year-old female with vomiting and diarrhea. Differential diagnosis includes foodborne illness, other gastroenteritis, viral gastroenteritis, among others. 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 Workup will include general labs, IV fluids, ondansetron IV and general supportive care. Disposition pending workup and patient course.. 07:50 Data reviewed: vital signs. sp3 10:44 ED course: Probable foodborne illness. Lactate of 2.2. 2 L were given with normal sp3 saline. Vital signs are currently normal and patient is having urine output. We will discharge her on Cipro and Flagyl and follow-up to PCP.. 07/28 07:45 Order name: CBC with Diff; Complete Time: 09:51 sp3 07/28 07:45 Order name: CMP; Complete Time: 10:43 sp3 07/28 07:45 Order name: Lipase; Complete Time: 10:43 sp3 07/28 07:45 Order name: Urinalysis w/ reflexes; Complete Time: 09:51 sp3 07/28 07:45 Order name: Lactate w/ 2H reflex if indic.; Complete Time: 09:51 sp3 07/28 09:34 Order name: CBC Smear Scan; Complete Time: 09:51 EDMS 07/28 07:45 Order name: IV Saline Lock; Complete Time: 08:22 sp3 07/28 07:45 Order name: Labs collected and sent; Complete Time: 08:14 sp3 Administered Medications: 08:09 Drug: Ondansetron IVP 4 mg IVP once; over 2 minutes Route: IVP; Site: right antecubital;ll1 09:55 Follow up: Response: No adverse reaction; Nausea is decreased ll1 08:22 Drug: NS 0.9% IV 1000 ml IV at 1 bolus Per protocol; to be given as a bolus over 60 ss minutes Route: IV; Rate: 1 bolus; Site: left antecubital; 09:56 Follow up: Response: No adverse reaction; IV Status: Completed infusion; IV Intake: ll1 1000ml 10:00 Drug: NS 0.9% IV 1000 ml IV at 1 bolus Per protocol; to be given as a bolus over 60 ll1 minutes Route: IV; Rate: 1 bolus; Site: left antecubital; 11:08 Follow up: Response: No adverse reaction; IV Status: Completed infusion; IV Intake: ll1 600ml 10:19 Drug: morphine IVP or IV 4 mg IVP once over 4 mins {Note: pain 9/10 RASS 0.} Route: ll1 IVP; Infused Over: 4 mins; Site: left antecubital; 11:08 Follow up: Response: No adverse reaction; Pain is decreased; RASS: Alert and Calm (0) ll1 10:20 Drug: Promethazine IVP 12.5 mg IVP once {Note: in liter bag of NS.} Route: IVP; Site: ll1 left antecubital; 11:08 Follow up: Response: No adverse reaction; Nausea is decreased; RASS: Alert and Calm (0) ll1 Disposition Summary: 07/28/24 10:44 Discharge Ordered Notes: Location: Home sp3 Condition: Stable sp3 Diagnosis - Foodborne illness, infectious diarrhea, lactic acidosis, dehydration sp3 Followup: sp3 - With: Private Physician - When: Upon discharge from the Emergency Department - Reason: Recheck today's complaints Discharge Instructions: - Discharge Summary Sheet sp3 - Preventing Foodborne Illness sp3 Forms: - Work release form ll1 - Medication Reconciliation Form sp3 - Antibiotic Education sp3 - Prescription Opioid Use sp3 - Patient Portal Instructions sp3 - Leadership Thank You Letter sp3 Prescriptions: - Flagyl 500 mg Oral tablet - take 1 tablet ORAL route every 8 hours for 7 days; 21 tablet; Refills: 0, sp3 Product Selection Permitted - Cipro 500 mg Oral Tablet - take 1 tablet ORAL route every 12 hours for 7 days; 14 tablet; Refills: 0, sp3 Product Selection Permitted - ondansetron 8 mg Oral Tablet,disintegrating - take 1 tablet ORAL route every 12 hours; 20 tablet; Refills: 0, Product sp3 Selection Permitted Signatures: Dispatcher [employer] EDShelley Balderrama RN RN ss Jad Morgan RN RN ll1 River Samayoa MD MD sp3 Corrections: (The following items were deleted from the chart) 07:45 07:45 CBC+H.LAB.BRZ ordered. EDMS EDMS 07:45 07:45 COMPREHENSIVE METABOLIC PANEL+C.LAB.BRZ ordered. EDMS EDMS 07:45 07:45 LIPASE+C.LAB.BRZ ordered. EDMS EDMS 07:45 07:45 Urinalysis+U.LAB.BRZ ordered. EDMS EDMS 07:45 07:45 LACTATE+C.LAB.BRZ ordered. EDMS EDMS
[2024-07-28 11:16] VITALS: TEMP 98
[2024-07-28 11:18] VITALS: BP 154/95; O2SAT 98
== END 2024-07-28 11:09 | disposition home or self-care (01) ==
LOC: ER 07:27
DX: A05.9 Bacterial foodborne intoxication, unspecified (principal); A09 Infectious gastroenteritis and colitis, unspecified; E86.0 Dehydration; E87.20 Acidosis, unspecified
CPT/HCPCS: 85025; 36415; 83605; 81003; 83690; 80053; 99284; J2550; J2405; J7030 ×2